=== PATIENT | female | born 1980 | race Hispanic/Latino ===

== ENCOUNTER 2018-09-20 14:48 | Emergency (ER) | payer OTHER ==
[2018-09-20 15:51] LABS: Urine Blood NEGATIVE (NEG); Urine Glucose 2+ (NEG); Urine Protein NEGATIVE (NEG); Urine pH 5.5 (5.0-7.0)
[2018-09-20 16:00] LABS: Absolute Lymphocytes (CBC) 2.4 K/uL (0.7-4.9); Absolute Monocytes 0.8 K/uL (0.1-1.3); Absolute Neutrophil 5.4 K/uL (1.8-8.0); Basophils % 0.8 % (0-1.3); Eosinophils % 1.2 % (0-4.4); Hematocrit 36.4 % (36.0-45.0); Lymphocytes % 27.1 % (15.3-44.8); MCH 27.5 pg (27.0-35.0); MCV 82.4 fL (80-100); MPV 10.7 fL (7.6-11.3); Monocytes % 8.8 % (3.3-12.3); RBC Red Blood Cell Count 4.41 M/uL (3.86-4.86)
[2018-09-20 16:11] LABS: Urine Bacteria 20-50 /HPF (<20); Urine Culture Reflex Order REFLEXED; Urine Mucus 1+ /HPF (NONE SEEN); Urine RBC <5 /HPF (NONE SEEN)
[2018-09-20 16:28] LABS: ALT/SGPT 21 U/L (12-78); AST/SGOT 21 U/L (15-37); Albumin 3.2 g/dL (3.4-5.0); Alkaline Phosphatase 94 U/L (45-117); BUN Blood Urea Nitrogen 14 mg/dL (7-18); Bicarbonate 26 mmol/L (21-32); Bilirubin Direct < 0.1 mg/dL (0-0.2); Bilirubin Total 0.3 mg/dL (0.2-1.0); Glucose Level 200 mg/dL (74-106); Lipase 182 U/L (73-393); Protein, Total 7.8 g/dL (6.4-8.2); Sodium Level 137 mmol/L (136-145)
[2018-09-20] MEDS ORDERED: MORPHINE 4 MG/ML SYR ONE (17:36)
[2018-09-20] MEDS ORDERED: ONDANSETRON 4 MG/2 ML VIAL ONE (17:36)
[2018-09-20] MEDS ORDERED: NA CHLORIDE 0.9% 1,000 ML ONE (17:36)
--- NOTE | 2018-09-20 18:31 | RAD REPORT ---
EXAM DESCRIPTION: CT - Abdomen Pelvis W Contrast - 09/20/2018 6:17 pm CLINICAL HISTORY: Abdominal pain, right-sided back and flank pain COMPARISON: CT imaging December 2014 TECHNIQUE: Biphasic, helical CT imaging of the abdomen and pelvis was performed following 100 ml non -ionic IV contrast. Oral contrast was given. All CT scans are performed using dose optimization technique as appropriate and may include automated exposure control or mA/KV adjustment according to patient size. FINDINGS: No suspicious findings in the lung bases. The liver, spleen, and pancreas show no suspicious findings. Cholecystectomy clips are present. Mild biliary tree dilatation is not outside of normal range. Dilatation can be seen as a normal reservoir affect and occurs after cholecystectomy. Duct stones can be occult. Symmetric renal function is seen with no hydronephrosis or suspicious renal mass. No pyelonephritis o r acute renal parenchymal process. A 7 centimeter cyst lower pole left kidney has enlarged minimally since 2015. No suspicious characteristics. Right ureter may be fractionally larger than in 2015. No o bstructing or nonobstructing calculi. Uterus is deviated to the right. There is possibly some extrins ic compression of the ureter. In the posterior fundus there is a 5.7 centimeter mass that is most lik fadumo a fibroid. This is slightly enlarged from 2015. Right ovary is in the posterior right pelvis with no suspicious finding. A few small right ovarian cysts are present. Minimal free fluid in the cul-de -sac is within physiologic limits. Left ovary is in the anterior upper left pelvis. A 5.0 centimeter low-density mass is present in the ovary. No dilated bowel loops or bowel wall thickening. Moderate stool volume in the colon. No appendicitis. No acute GI process identifiable. No free air or pneumatosis. No focal inflammatory stranding. No m ass or bulky lymphadenopathy otherwise noted. No hernia defects seen. scar noted. The urina ry bladder is without significant finding. No adrenal abnormality. No suspicious bony findings. IMPRESSION: A 5 centimeter left ovarian cyst is identified in the anterior lower left pelvis. This m ay not be of any emergent significance due to provided history of right flank pain. This does need napoles bsequent follow-up in 2- 3 months to assure involution. No hydronephrosis or asymmetric renal function. Slight fullness of the right renal pelvis is present possibly from extrinsic compression. No obstructing or nonobstructing calculi. Biliary tree dilatation in a post cholecystectomy patient. Duct stones can be occult. Biliary tree ca n dilate as a normal variant after cholecystectomy. Correlation is needed with any biliary obstructiv e clinical or laboratory findings. Large uterine fibroid enlarged left renal cyst both slightly enlarged from 2015.
--- NOTE | 2018-09-20 18:54 | ER ---
Nurse's Notes [facility] Name: Glenna Finney Age: 37 yrs Sex: Female : 1980 Arrival Date: 09/20/2018 Time: 14:52 Bed 26 Private MD: None, None Diagnosis: Generalized abdominal pain Presentation: 09/20 14:54 Presenting complaint: Patient states: right back/flank/ RUQ pain started about 2 weeks sv ago but has worsened the last 3 days. Transition of care: patient was not received from another setting of care. Onset of symptoms was September 06, 2018. Care prior to arrival: None. 14:54 Method Of Arrival: Ambulatory sv 14:54 Acuity: GIGI 3 sv 15:30 Risk Assessment: Do you want to hurt yourself or someone else? Patient reports no mg2 desire to harm self or others. Initial Sepsis Screen: Does the patient meet any 2 criteria? No. Patient's initial sepsis screen is negative. Does the patient have a suspected source of infection? No. Patient's initial sepsis screen is negative. Triage Assessment: 14:57 General: Appears in no apparent distress. uncomfortable, Behavior is calm, cooperative, sv appropriate for age. Pain: Complains of pain in right low back, posterior aspect of right lateral abdomen and anterior aspect of right lateral abdomen Pain currently is 7 out of 10 on a pain scale. EENT: No signs and/or symptoms were reported regarding the EENT system. Neuro: Level of Consciousness is awake, alert, obeys commands, Oriented to person, place, time, situation, Moves all extremities. Full function. Respiratory: Respiratory effort is even, unlabored, Respiratory pattern is regular, symmetrical. Derm: Skin is pink, warm \T\ dry. Historical: - Allergies: 14:56 No Known Allergies; sv - PMHx: 14:56 Hypertension; sv - PSHx: 14:56 Cholecystectomy; ; sv - Immunization history:: Flu vaccine is not up to date. - Social history:: Smoking status: Patient/guardian denies using tobacco. - Ebola Screening: : No symptoms or risks identified at this time. Screenin:28 Abuse screen: Denies threats or abuse. Denies injuries from another. Nutritional mg2 screening: No deficits noted. Tuberculosis screening: No symptoms or risk factors identified. Fall Risk None identified. Assessment: 15:28 General: Appears in no apparent distress. comfortable, Behavior is calm, cooperative. mg2 Pain: Complains of pain in back Pain does not radiate. Quality of pain is described as aching. Neuro: Level of Consciousness is awake, alert, obeys commands, Oriented to person, place, time, situation. Cardiovascular: Capillary refill < 3 seconds Patient's skin is warm and dry. Respiratory: Airway is patent Respiratory effort is even, unlabored, Respiratory pattern is regular, symmetrical. GI: Abdomen is round non-distended. : Reports pain flank(s), since 2 weeks ago. EENT: No deficits noted. Derm: Skin is intact, is healthy with good turgor, Skin is pink, warm \T\ dry. normal. Musculoskeletal: No signs and/or symptoms reported regarding the musculoskeletal system. 16:34 Reassessment: Patient appears in no apparent distress at this time. Patient and/or rv family updated on plan of care and expected duration. Pain level reassessed. Patient is alert, oriented x 3, equal unlabored respirations, skin warm/dry/pink. 17:36 Reassessment: Patient appears in no apparent distress at this time. Patient and/or mg2 family updated on plan of care and expected duration. Pain level reassessed. Patient is alert, oriented x 3, equal unlabored respirations, skin warm/dry/pink. Vital Signs: 14:56 BP 149 / 86; Pulse 90; Resp 20; Temp 97; Pulse Ox 100% ; Weight 95.71 kg; Height 5 ft. sv 8 in. (172.72 cm); Pain 7/10; 16:34 BP 158 / 89; Pulse 88; Pulse Ox 98% on R/A; rv 18:16 BP 166 / 89; Pulse 88; Resp 18; Pulse Ox 100% on R/A; Pain 2/10; mg2 19:05 BP 152 / 84; Pulse 94; Pulse Ox 100% on R/A; rv 14:56 Body Mass Index 32.08 (95.71 kg, 172.72 cm) sv ED Course: 14:52 Patient arrived in ED. mr 14:52 None, None is Private Physician. mr 14:56 Triage completed. sv 14:57 Arm band placed on. sv 15:27 Da Berry, TAMARA is Primary Nurse. mg2 15:28 Vandana Gutierrez FNP-C [facility]. kb 15:28 Mateus Hidalgo MD is Attending Physician. kb 15:28 No provider procedures requiring assistance completed. mg2 15:30 Patient has correct armband on for positive identification. Pulse ox on. NIBP on. mg2 16:19 Inserted saline lock: 20 gauge in right antecubital area, using aseptic technique. mg2 Blood collected. 18:[address] via wheelchair. mw3 18:17 CT Abd/Pelvis - W/Contrast In Process Unspecified. EDMS 18:18 CT completed. Patient tolerated procedure well. Patient moved back from [place]. mw3 19:05 IV discontinued, bleeding controlled, No redness/swelling at site. Pressure dressing rv applied. Administered Medications: 17:32 Drug: NS 0.9% 1000 ml Route: IV; Rate: 1000 ml; Site: left antecubital; mg2 19:04 Follow up: IV Status: Completed infusion rv 17:33 Drug: morphine 4 mg Route: IVP; Site: right antecubital; mg2 19:04 Follow up: Response: No adverse reaction rv 17:33 Drug: Zofran 4 mg Route: IVP; Site: right antecubital; mg2 19:04 Follow up: Response: No adverse reaction rv Outcome: 18:53 Discharge ordered by MD. kb 19:05 Discharged to home ambulatory. rv 19:05 Condition: good 19:05 Discharge instructions given to patient, Instructed on discharge instructions, follow up and referral plans. medication usage, Demonstrated understanding of instructions, follow-up care, medications, Prescriptions given X 2. 19:06 Patient left the ED. rv Signatures: Dispatcher [employer] EDKY Vandana Gutierrez FNP-C FNP-Ckb Verde, Stephanie, RN TAMARA Consuelo Ortiz mr Da Berry RN RN mg2 Marie Yuen mw3 Jorge Byrne RN RN rv
--- NOTE | 2018-09-20 18:54 | EDPHYS ---
Physician Documentation [facility] Name: Glenna Finney Age: 37 yrs Sex: Female : 1980 Arrival Date: 09/20/2018 Time: 14:52 Bed 26 Private MD: None, None ED Physician Mateus Hidalgo HPI: 09/20 18:59 This 37 yrs old Female presents to ER via Ambulatory with complaints of Flank kb Pain. 18:59 The patient complains of pain in the right flank. The pain radiates to the abdomen. kb Onset: The symptoms/episode began/occurred 2 week(s) ago, and became persistent 3 days ago. Modifying factors: The symptoms are alleviated by nothing. the symptoms are aggravated by nothing. Associated signs and symptoms: The patient has no apparent associated signs or symptoms. Severity of pain: At its worst the pain was mild moderate in the emergency department the pain is unchanged. The patient has not experienced similar symptoms in the past. The patient has not recently seen a physician. Historical: - Allergies: 14:56 No Known Allergies; sv - PMHx: 14:56 Hypertension; sv - PSHx: 14:56 Cholecystectomy; ; sv - Immunization history:: Flu vaccine is not up to date. - Social history:: Smoking status: Patient/guardian denies using tobacco. - Ebola Screening: : No symptoms or risks identified at this time. ROS: 18:59 Constitutional: Negative for fever, chills, and weight loss, Cardiovascular: Negative kb for chest pain, palpitations, and edema, Respiratory: Negative for shortness of breath, cough, wheezing, and pleuritic chest pain, : Negative for injury, bleeding, discharge, and swelling, MS/Extremity: Negative for injury and deformity, Skin: Negative for injury, rash, and discoloration, Neuro: Negative for headache, weakness, numbness, tingling, and seizure. 18:59 Abdomen/GI: Positive for abdominal pain, Negative for nausea, vomiting, and diarrhea. 18:59 Back: Positive for flank pain, on the right, Negative for injury or acute deformity, decreased range of motion. Exam: 19:04 Constitutional: This is a well developed, well nourished patient who is awake, alert, kb and in no acute distress. Head/Face: Normocephalic, atraumatic. Chest/axilla: Normal chest wall appearance and motion. Nontender with no deformity. No lesions are appreciated. Cardiovascular: Regular rate and rhythm with a normal S1 and S2. No gallops, murmurs, or rubs. Normal PMI, no JVD. No pulse deficits. Respiratory: Lungs have equal breath sounds bilaterally, clear to auscultation and percussion. No rales, rhonchi or wheezes noted. No increased work of breathing, no retractions or nasal flaring. Skin: Warm, dry with normal turgor. Normal color with no rashes, no lesions, and no evidence of cellulitis. MS/ Extremity: Pulses equal, no cyanosis. Neurovascular intact. Full, normal range of motion. Neuro: Awake and alert, GCS 15, oriented to person, place, time, and situation. Cranial nerves II-XII grossly intact. Motor strength 5/5 in all extremities. Sensory grossly intact. Cerebellar exam normal. Normal gait. 19:04 Abdomen/GI: Inspection: abdomen appears normal, Bowel sounds: normal, in all quadrants, Palpation: soft, in all quadrants, mild abdominal tenderness, in the right upper quadrant. 19:04 Back: CVA tenderness, that is mild, is noted on the right. Vital Signs: 14:56 BP 149 / 86; Pulse 90; Resp 20; Temp 97; Pulse Ox 100% ; Weight 95.71 kg; Height 5 ft. sv 8 in. (172.72 cm); Pain 7/10; 16:34 BP 158 / 89; Pulse 88; Pulse Ox 98% on R/A; rv 18:16 BP 166 / 89; Pulse 88; Resp 18; Pulse Ox 100% on R/A; Pain 2/10; mg2 19:05 BP 152 / 84; Pulse 94; Pulse Ox 100% on R/A; rv 14:56 Body Mass Index 32.08 (95.71 kg, 172.72 cm) sv MDM: 15:28 Patient medically screened. kb 18:52 Data reviewed: vital signs, nurses notes. Data interpreted: Pulse oximetry: on room air kb is 100 %. Interpretation: normal. Counseling: I had a detailed discussion with the patient and/or guardian regarding: the historical points, exam findings, and any diagnostic results supporting the discharge/admit diagnosis, lab results, radiology results, the need for outpatient follow up, a family practitioner, to return to the emergency department if symptoms worsen or persist or if there are any questions or concerns that arise at home. 09/20 15:08 Order name: Urine Microscopic Only; Complete Time: 16:13 snw 09/20 15:37 Order name: Lipase; Complete Time: 16:29 kb 09/20 15:37 Order name: Basic Metabolic Panel; Complete Time: 16:29 kb 09/20 15:37 Order name: CBC with Diff; Complete Time: 16:13 kb 09/20 15:37 Order name: Hepatic Function; Complete Time: 16:29 kb 09/20 15:08 Order name: Urine Test (obtain specimen); Complete Time: 15:42 snw 09/20 15:08 Order name: Urine Dipstick-Ancillary (obtain specimen); Complete Time: 15:42 snw 09/20 15:43 Order name: Urine Dipstick--Ancillary (enter results); Complete Time: 15:59 eb 09/20 15:43 Order name: Urine --Ancillary (enter results); Complete Time: 15:59 eb 09/20 18:00 Order name: CT Abd/Pelvis - W/Contrast; Complete Time: 18:37 kb 09/20 15:37 Order name: Labs collected and sent; Complete Time: 15:48 kb 09/20 15:37 Order name: IV Saline Lock; Complete Time: 15:49 kb Administered Medications: 17:32 Drug: NS 0.9% 1000 ml Route: IV; Rate: 1000 ml; Site: left antecubital; mg2 19:04 Follow up: IV Status: Completed infusion rv 17:33 Drug: morphine 4 mg Route: IVP; Site: right antecubital; mg2 19:04 Follow up: Response: No adverse reaction rv 17:33 Drug: Zofran 4 mg Route: IVP; Site: right antecubital; mg2 19:04 Follow up: Response: No adverse reaction rv Disposition: 09/21 07:12 Co-signature as Attending Physician, Mateus Hidalgo MD. rn Disposition: 09/20/18 18:53 Discharged to Home. Impression: Generalized abdominal pain. - Condition is Stable. - Discharge Instructions: Abdominal Pain, Adult, [id number]. - Prescriptions for Zofran 4 mg Oral Tablet - take 1 tablet by ORAL route every 6 hours As needed; 20 tablet. Diclofenac Sodium 75 mg Oral Tablet Sustained Release - take 1 tablet by ORAL route 2 times per day; 30 tablet. - Medication Reconciliation Form, Thank You Letter, Antibiotic Education, Prescription Opioid Use form. - Follow up: Emergency Department; When: As needed; Reason: Worsening of condition. Follow up: Private Physician; When: 2 - 3 days; Reason: Recheck today's complaints, Continuance of care, Re-evaluation by your physician. Signatures: Dispatcher [employer] EDMS Vandana Gutierrez, COMMUNITY SERVICE AIDE-C COMMUNITY SERVICE AIDE-Ckb Michelle Price, RN RN Emilia Walker, MAURICE-C COMMUNITY SERVICE AIDE-Csnw Mateus Hidalgo MD MD rn Gardose, Michele, RN RN mg2 Vicente, Ronaldo, RN RN rv Corrections: (The following items were deleted from the chart) 09/20 19:06 18:53 09/20/2018 18:53 Discharged to Home. Impression: Generalized abdominal pain. rv Condition is Stable. Forms are Medication Reconciliation Form, Thank You Letter, Antibiotic Education, Prescription Opioid Use. Follow up: Emergency Department; When: As needed; Reason: Worsening of condition. Follow up: Private Physician; When: 2 - 3 days; Reason: Recheck today's complaints, Continuance of care, Re-evaluation by your physician. kb
[2018-09-20 19:13] VITALS: TEMP 97
[2018-09-20 19:16] VITALS: O2SAT 100
[2018-09-20 19:17] VITALS: BP 152/84
== END 2018-09-20 19:06 | disposition home or self-care (01) ==
LOC: ER 14:48
DX: R10.84 Generalized abdominal pain (principal); I10 Essential (primary) hypertension
CPT/HCPCS: 36415; 74177; 80048; 80076; 81003; 81015; 81025; 83690; 85025; 96361; 96374; 96375; 99284; J2405; J7030; Q9967

== ENCOUNTER 2018-10-30 20:12 | Emergency (ER) | payer OTHER ==
[2018-10-30 22:06] LABS: Urine Blood TRACE (NEG); Urine Glucose 3+ (NEG); Urine Protein NEGATIVE (NEG); Urine pH 5.5 (5.0-7.0)
[2018-10-30] MEDS ORDERED: CEFTRIAXONE/SWI 1gm 1 GM/10 ML SYR ONE (22:36)
[2018-10-30] MEDS ORDERED: NA CHLORIDE 0.9% 1,000 ML ONE (22:41)
[2018-10-30 22:46] LABS: ALT/SGPT 23 U/L (12-78); AST/SGOT 17 U/L (15-37); Albumin 3.2 g/dL (3.4-5.0); Alkaline Phosphatase 109 U/L (45-117); BUN Blood Urea Nitrogen 12 mg/dL (7-18); Bicarbonate 26 mmol/L (21-32); Bilirubin Direct < 0.1 mg/dL (0-0.2); Bilirubin Total 0.3 mg/dL (0.2-1.0); Glucose Level 316 mg/dL (74-106); Lipase 194 U/L (73-393); Potassium 3.8 mmol/L (3.5-5.1); Protein, Total 7.7 g/dL (6.4-8.2); Sodium Level 138 mmol/L (136-145)
[2018-10-30 22:52] LABS: Absolute Lymphocytes (CBC) 2.3 K/uL (0.7-4.9); Absolute Monocytes 0.6 K/uL (0.1-1.3); Absolute Neutrophil 3.4 K/uL (1.8-8.0); Eosinophils % 1.5 % (0-4.4); Hematocrit 38.9 % (36.0-45.0); Lymphocytes % 36.2 % (15.3-44.8); MCH 27.9 pg (27.0-35.0); MCV 82.1 fL (80-100); MPV 11.3 fL (7.6-11.3); Monocytes % 8.8 % (3.3-12.3); RBC Red Blood Cell Count 4.73 M/uL (3.86-4.86)
[2018-10-31] MEDS ORDERED: INSULIN -REGULAR HUMAN 50 UNIT/0.5 ML ML ONE (00:04)
--- NOTE | 2018-10-31 00:24 | ER ---
Nurse's Notes [facility] Name: Glenna Finney Age: 37 yrs Sex: Female : 1980 Arrival Date: 10/30/2018 Time: 20:13 Bed 16 Private MD: None, None Diagnosis: Dysuria;Leiomyoma of uterus, unspecified;Unspecified ovarian cysts-MASS;Congenital renal cyst, unspecified-LEFT, LARGE Presentation: 10/30 20:40 Presenting complaint: Patient states: that she is having right flank pain that radiates fc around to right upper abd. Burrell with urination and also having frequency. Started 4 days ago. Transition of care: patient was not received from another setting of care. Onset of symptoms was October 27, 2018. Risk Assessment: Do you want to hurt yourself or someone else? Patient reports no desire to harm self or others. Initial Sepsis Screen: Does the patient meet any 2 criteria? HR > 90 bpm. Yes Does the patient have a suspected source of infection? No. Patient's initial sepsis screen is negative. Care prior to arrival: None. 20:40 Method Of Arrival: Ambulatory fc 20:40 Acuity: GIGI 3 fc Triage Assessment: 20:42 General: Appears uncomfortable, Behavior is calm, cooperative, appropriate for age. fc Pain: Complains of pain in right lower back and flank Pain radiates to right upper quadrant Pain currently is 7 out of 10 on a pain scale. Quality of pain is described as aching, dull, throbbing, Pain began 4 days ago. EENT: No deficits noted. EENT:. Neuro: Level of Consciousness is awake, alert, obeys commands, Oriented to person, place, time, situation, Appropriate for age. Cardiovascular: No deficits noted. Respiratory: No deficits noted. GI: Abdomen is non-distended, Bowel sounds present X 4 quads. Abd is soft X 4 quads Abdomen is tender to palpation in right upper quadrant Patient currently denies constipation, diarrhea, nausea, vomiting. : Reports burning with urination, pain in right flank(s), upper quadrant(s) urinary frequency. Derm: Skin is pink, warm \T\ dry. Musculoskeletal: Circulation, motion, and sensation intact. Capillary refill < 3 seconds, Range of motion: intact in all extremities. J[employer] TE[employer]ER: 20:42 LMP 10/05/2018 fc Historical: - Allergies: 20:42 No Known Allergies; fc - Home Meds: 20:42 metformin 1,000 mg Oral tab 1 tab 2 times per day [Active]; fc - PMHx: 20:42 Hypertension; Diabetes - NIDDM; fc - PSHx: 20:42 Cholecystectomy; Hernia repair; ; fc - Immunization history:: Last tetanus immunization: up to date Flu vaccine is not up to date. - Social history:: Smoking status: Patient/guardian denies using tobacco. - Ebola Screening: : Patient negative for fever greater than or equal to 101.5 degrees Fahrenheit, and additional compatible Ebola Virus Disease symptoms Patient denies exposure to infectious person Patient denies travel to an Ebola-affected area in the 21 days before illness onset. - Family history:: not pertinent. Screenin:21 Abuse screen: Denies threats or abuse. Denies injuries from another. Nutritional mg2 screening: No deficits noted. Tuberculosis screening: No symptoms or risk factors identified. Fall Risk None identified. Assessment: 21:19 General: Appears in no apparent distress. comfortable, Behavior is calm, cooperative. mg2 Pain: Complains of pain in right low back and low back area Pain does not radiate. Pain currently is 7 out of 10 on a pain scale. Quality of pain is described as aching, Pain began gradually, 4 days ago. Neuro: Level of Consciousness is awake, alert, obeys commands, Oriented to person, place, time, situation. Cardiovascular: Capillary refill < 3 seconds Patient's skin is warm and dry. Respiratory: Airway is patent Respiratory effort is even, unlabored, Respiratory pattern is regular, symmetrical. GI: : Reports pain in right flank(s), in lower back since . EENT: No signs and/or symptoms were reported regarding the EENT system. EENT: No deficits noted. Derm: Skin is intact, is healthy with good turgor, Skin is pink, warm \T\ dry. normal. Musculoskeletal: No signs and/or symptoms reported regarding the musculoskeletal system. 10/31 00:58 Reassessment: Patient appears in no apparent distress at this time. Patient and/or mg2 family updated on plan of care and expected duration. Pain level reassessed. Patient is alert, oriented x 3, equal unlabored respirations, skin warm/dry/pink. Vital Signs: 10/30 20:42 BP 145 / 105; Pulse 103; Resp 18; Temp 98.5(O); Pulse Ox 99% on R/A; Weight 97.07 kg fc (R); Height 5 ft. 8 in. (172.72 cm) (R); Pain 7/10; 21:24 BP 145 / 98; Pulse 98; Resp 18; Pulse Ox 100% ; Pain 7/10; mg2 10/31 00:48 BP 135 / 78; Pulse 89; Resp 18; Pulse Ox 100% ; Pain 0/10; mg2 12 20:42 Body Mass Index 32.54 (97.07 kg, 172.72 cm) fc ED Course: 10/30 20:13 Patient arrived in ED. mr 20:14 None, None is Private Physician. mr 20:41 Triage completed. fc 20:42 Arm band placed on Patient placed in waiting room. fc 21:04 Da Berry, TAMARA is Primary Nurse. mg2 21:11 Donnie Alexandra MD is Attending Physician. brigida 21:21 Patient has correct armband on for positive identification. Door closed. Warm blanket mg2 given. 21:21 No provider procedures requiring assistance completed. mg2 22:01 Radiology exam delayed due to test not completed at this time. nj 22:23 Inserted saline lock: 20 gauge in left antecubital area, using aseptic technique. Blood mg2 collected. 22:29 CT Stone Protocol In Process Unspecified. EDMS 22:31 CT completed. Patient tolerated procedure well. Patient moved to CT via stretcher. Patient moved back from [place]. 12 00:20 Yojana Vyas MD is Referral Physician. brigida 00:23 Matheus Duarte MD is Referral Physician. brigida 00:59 IV discontinued, intact, bleeding controlled, No redness/swelling at site. Pressure mg2 dressing applied. Administered Medications: 10/30 22:53 Drug: NS 0.9% 1000 ml Route: IV; Rate: 1 bolus; Site: left antecubital; mg2 10/31 00:59 Follow up: Response: No adverse reaction; IV Status: Completed infusion mg2 10/30 22:53 Drug: Rocephin - (cefTRIAXone) 1 grams Route: IVPB; Infused Over: 30 mins; Site: left mg2 antecubital; 10/31 00:59 Follow up: Response: No adverse reaction; IV Status: Completed infusion mg2 00:05 Drug: Insulin Regular Human 10 units {Co-Signature: [email or web address] (Emily Flor RN).} Route: mg2 Sub-Q; Site: right lower abdomen; 00:59 Follow up: Response: No adverse reaction; Marked relief of symptoms mg2 Point of Care Testing: Blood Glucose: 00:48 Blood Glucose: 246 mg/dL; mg2 Ranges: Outcome: 00:23 Discharge ordered by . brigida 01:00 Discharged to home ambulatory, with family. mg2 01:00 Condition: stable 01:00 Discharge instructions given to patient, family, Instructed on discharge instructions, follow up and referral plans. medication usage, Demonstrated understanding of instructions, follow-up care, medications, Prescriptions given X 2. 01:00 Patient left the ED. mg2 Signatures: Dispatcher [employer] EDDonnie Damon MD MD cha Rivera Consuelo mr Cruz, Mandy Garsia RN RN fc Jordan, Nathan nj Gardose, Michele, RN RN mg2 Emily Flor RN [email or web address]
--- NOTE | 2018-10-31 00:24 | EDPHYS ---
Physician Documentation [facility] Name: Glenna Finney Age: 37 yrs Sex: Female : 1980 Arrival Date: 10/30/2018 Time: 20:13 Bed 16 Private MD: None, None ED Physician Donnie Alexandra HPI: 10/30 21:58 This 37 yrs old Female presents to ER via Ambulatory with complaints of Back brigida Pain, Flank Pain. 21:58 The patient presents with pain that is acute. The symptoms are located in the right mid brigida back. Onset: The symptoms/episode began/occurred 2 day(s) ago. The pain does not radiate. Associated signs and symptoms: The patient has no apparent associated signs or symptoms. The problem was sustained from unknown cause. Modifying factors: The patient symptoms are alleviated by nothing, the patient symptoms are aggravated by nothing. Severity of symptoms: At their worst the symptoms were mild, moderate, in the emergency department the symptoms are unchanged. The patient has not experienced similar symptoms in the past. 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 - Social history:: Smoking status: Patient/guardian denies using tobacco. - Ebola Screening: : Patient negative for fever greater than or equal to 101.5 degrees Fahrenheit, and additional compatible Ebola Virus Disease symptoms Patient denies exposure to infectious person Patient denies travel to an Ebola-affected area in the 21 days before illness onset. - Family history:: not pertinent. ROS: 21:58 Constitutional: Negative for fever, chills, and weight loss, Eyes: Negative for injury, brigida pain, redness, and discharge, ENT: Negative for injury, pain, and discharge, Neck: Negative for injury, pain, and swelling, Cardiovascular: Negative for chest pain, palpitations, and edema, Respiratory: Negative for shortness of breath, cough, wheezing, and pleuritic chest pain, Abdomen/GI: Negative for abdominal pain, nausea, vomiting, diarrhea, and constipation, : Negative for injury, bleeding, discharge, and swelling, MS/Extremity: Negative for injury and deformity, Skin: Negative for injury, rash, and discoloration, Neuro: Negative for headache, weakness, numbness, tingling, and seizure. 21:58 Back: Positive for pain at rest, flank pain, on the right. Exam: 22:00 Constitutional: This is a well developed, well nourished patient who is awake, alert, brigida and in no acute distress. Head/Face: Normocephalic, atraumatic. Eyes: Pupils equal round and reactive to light, extra-ocular motions intact. Lids and lashes normal. Conjunctiva and sclera are non-icteric and not injected. Cornea within normal limits. Periorbital areas with no swelling, redness, or edema. ENT: Nares patent. No nasal discharge, no septal abnormalities noted. Tympanic membranes are normal and external auditory canals are clear. Oropharynx with no redness, swelling, or masses, exudates, or evidence of obstruction, uvula midline. Mucous membranes moist. Neck: Trachea midline, no thyromegaly or masses palpated, and no cervical lymphadenopathy. Supple, full range of motion without nuchal rigidity, or vertebral point tenderness. No Meningismus. Chest/axilla: Normal chest wall appearance and motion. Nontender with no deformity. No lesions are appreciated. Cardiovascular: Regular rate and rhythm with a normal S1 and S2. No gallops, murmurs, or rubs. Normal PMI, no JVD. No pulse deficits. Respiratory: Lungs have equal breath sounds bilaterally, clear to auscultation and percussion. No rales, rhonchi or wheezes noted. No increased work of breathing, no retractions or nasal flaring. Abdomen/GI: Soft, non-tender, with normal bowel sounds. No distension or tympany. No guarding or rebound. No evidence of tenderness throughout. Skin: Warm, dry with normal turgor. Normal color with no rashes, no lesions, and no evidence of cellulitis. MS/ Extremity: Pulses equal, no cyanosis. Neurovascular intact. Full, normal range of motion. Neuro: Awake and alert, GCS 15, oriented to person, place, time, and situation. Cranial nerves II-XII grossly intact. Motor strength 5/5 in all extremities. Sensory grossly intact. Cerebellar exam normal. Normal gait. Psych: Awake, alert, with orientation to person, place and time. Behavior, mood, and affect are within normal limits. 22:00 Back: pain, that is mild, ROM is normal, painless, normal spinal alignment noted, CVA tenderness, that is mild, that is moderate, is noted on the right, muscle spasm, is not present. Vital Signs: 20:42 BP 145 / 105; Pulse 103; Resp 18; Temp 98.5(O); Pulse Ox 99% on R/A; Weight 97.07 kg fc (R); Height 5 ft. 8 in. (172.72 cm) (R); Pain 7/10; 21:24 BP 145 / 98; Pulse 98; Resp 18; Pulse Ox 100% ; Pain 7/10; mg2 10/31 00:48 BP 135 / 78; Pulse 89; Resp 18; Pulse Ox 100% ; Pain 0/10; mg2 10/30 20:42 Body Mass Index 32.54 (97.07 kg, 172.72 cm) MDM: 10/30 21:11 Patient medically screened. [facility] 22:01 Data reviewed: vital signs, nurses notes, lab test result(s), radiologic studies, CT brigida scan. 10/30 21:47 Order name: Urine Dipstick--Ancillary (enter results); Complete Time: 22:33 gm 10/30 21:47 Order name: Urine --Ancillary (enter results); Complete Time: 22:33 gm 10/30 21:58 Order name: Basic Metabolic Panel [facility] 10/30 21:58 Order name: CBC with Diff [facility] 10/30 21:58 Order name: Creatinine for Radiology; Complete Time: 23:40 [facility] 10/30 21:58 Order name: Hepatic Function; Complete Time: 23:40 [facility] 10/30 21:58 Order name: Lipase; Complete Time: 23:40 [facility] 10/30 21:58 Order name: Urine Culture [facility] 10/30 21:58 Order name: CT Stone Protocol [facility] 10/30 21:58 Order name: Basic Metabolic Panel; Complete Time: 23:40 [facility] 10/30 21:58 Order name: CBC with Automated Diff; Complete Time: 23:40 [facility] 10/30 21:58 Order name: IV Saline Lock; Complete Time: 22:54 [facility] 10/30 21:58 Order name: Labs collected and sent; Complete Time: 22:54 [facility] Administered Medications: 22:53 Drug: NS 0.9% 1000 ml Route: IV; Rate: 1 bolus; Site: left antecubital; mg2 10/31 00:59 Follow up: Response: No adverse reaction; IV Status: Completed infusion mg2 10/30 22:53 Drug: Rocephin - (cefTRIAXone) 1 grams Route: IVPB; Infused Over: 30 mins; Site: left mg2 antecubital; 10/31 00:59 Follow up: Response: No adverse reaction; IV Status: Completed infusion mg2 00:05 Drug: Insulin Regular Human 10 units {Co-Signature: [id number] (Emily Flor RN).} Route: mg2 Sub-Q; Site: right lower abdomen; 00:59 Follow up: Response: No adverse reaction; Marked relief of symptoms mg2 Point of Care Testing: Blood Glucose: 00:48 Blood Glucose: 246 mg/dL; mg2 Ranges: Critical Glucose Levels:Adult <50 mg/dl or >400 mg/dl <40 mg/dl or >180 mg/dl Disposition: 10/31/18 00:23 Discharged to Home. Impression: Dysuria, Leiomyoma of uterus, unspecified, Unspecified ovarian cysts - MASS, Congenital renal cyst, unspecified - LEFT, LARGE. - Condition is Stable. - Discharge Instructions: Type 2 Diabetes Mellitus, Diagnosis, Adult, Dysuria, Uterine Fibroids, Ovarian Cyst, Ovarian Cyst, [id number], Uterine Fibroids, Pygf-gl-Xazx, Type 2 Diabetes Mellitus, Diagnosis, Adult, Kyxs-jd-[id number], Type 2 Diabetes Mellitus, Self Care, Adult, Type 2 Diabetes Mellitus, Self Care, Adult, Khxb-[id number]. - Prescriptions for Tylenol- Codeine #3 300-30 mg Oral Tablet - take 2 tablets by ORAL route every 6 hours As needed; 20 tablet. Bactrim DS 800- 160 mg Oral Tablet - take 1 tablet by ORAL route every 12 hours for 7 days; 14 tablet. - Medication Reconciliation Form, Thank You Letter, Antibiotic Education, Prescription Opioid Use, Work release form form. - Follow up: Private Physician; When: 2 - 3 days; Reason: Recheck today's complaints, Continuance of care, Re-evaluation by your physician. Follow up: Yojana Vyas MD; When: 2 - 3 days; Reason: Recheck today's complaints, Continuance of care, Re-evaluation by your physician. Follow up: Matheus Duarte MD; When: 2 - 3 days; Reason: Recheck today's complaints, Re-evaluation by your physician. - Problem is new. - Symptoms have improved. Signatures: Dispatcher [employer] EDMO Donnie Alexandra MD MD cha Chretien, Felicia, RN RN Da Berry RN RN mg2 Emily Flor RN ls4 Corrections: (The following items were deleted from the chart) 01:00 00:23 10/31/2018 00:23 Discharged to Home. Impression: Dysuria; Leiomyoma of uterus, mg2 unspecified; Unspecified ovarian cysts - MASS; Congenital renal cyst, unspecified - LEFT, LARGE. Condition is Stable. Discharge Instructions: Dysuria, Type 2 Diabetes Mellitus, Diagnosis, Adult, Type 2 Diabetes Mellitus, Diagnosis, Adult, Nmkl-[id number], Type 2 Diabetes Mellitus, Self Care, Adult, Type 2 Diabetes Mellitus, Self Care, Adult, Apxk-by-Xsea. Prescriptions for Tylenol-Codeine #3 300-30 mg Oral Tablet - take 2 tablets by ORAL route every 6 hours As needed; 20 tablet, Bactrim DS 800-160 mg Oral Tablet - take 1 tablet by ORAL route every 12 hours for 7 days; 14 tablet. and Forms are Medication Reconciliation Form, Thank You Letter, Antibiotic Education, Prescription Opioid Use. Follow up: Private Physician; When: 2 - 3 days; Reason: Recheck today's complaints, Continuance of care, Re-evaluation by your physician. Follow up: Yojana Vyas; When: 2 - 3 days; Reason: Recheck today's complaints, Continuance of care, Re-evaluation by your physician. Follow up: Matheus Duarte; When: 2 - 3 days; Reason: Recheck today's complaints, Re-evaluation by your physician. Problem is new. Symptoms have improved. brigida
[2018-10-31 01:38] VITALS: TEMP 98.5
[2018-10-31 01:39] VITALS: O2SAT 100
[2018-10-31 01:41] VITALS: BP 135/78
--- NOTE | 2018-10-31 07:58 | RAD REPORT ---
EXAM DESCRIPTION: CT - Stone Protocol - 10/31/2018 2:17 am CLINICAL HISTORY: Abdominal pain. Right flank pain COMPARISON: September 2018 TECHNIQUE: Computed axial tomography of the abdomen pelvis was obtained without oral or IV contrast. Lack of IV and oral contrast limits evaluation of solid organs, bowel, and vessels. Coronal reformat sukhjinder images were obtained and reviewed. A preliminary report generated by [employer] and revi ewed prior to dictation All CT scans are performed using dose optimization technique as appropriate and may include automated exposure control or mA/KV adjustment according to patient size. FINDINGS: A renal calculus is not seen. An ureteral calculus is not noted. A bladder calculus is not present. 6.4 centimeter left renal cyst The liver, spleen, pancreas and adrenals appear grossly normal There is no evidence of diverticulitis. The appendix appears normal A 5 centimeter cystic mass left adnexa unchanged. Fibroid uterus Gallbladder is been removed IMPRESSION: Negative for a genitourinary calculus A 5 centimeter cystic mass left adnexal unchanged may represent a benign ovarian cyst. As a cystic ov brooke neoplasm can also have this appearance it is recommended patient follow up ultrasound in 6 week s to assess stability/resolution
== END 2018-10-31 01:00 | disposition home or self-care (01) ==
LOC: ER 20:12
DX: D25.9 Leiomyoma of uterus, unspecified (principal); N83.209 Unspecified ovarian cyst, unspecified side; Q61.00 Congenital renal cyst, unspecified; I10 Essential (primary) hypertension; E11.9 Type 2 diabetes mellitus without complications
CPT/HCPCS: 36415; 74176; 76377; 80048; 80076; 81003; 81025; 83690; 85025; 87086; 87088; 96365; 96366; 96372; 99284; J0696; J7030

== ENCOUNTER → 2019-05-30 | Day surgery (SDC) | payer OTHER, SELFPAY ==
[2019-05-28 15:32] LABS: Absolute Lymphocytes (CBC) 2.2 K/uL (0.7-4.9); Basophils % 0.5 % (0-1.3); Eosinophils % 1.2 % (0-4.4); Hematocrit 37.2 % (36.0-45.0); Lymphocytes % 26.8 % (15.3-44.8); MPV 11.5 fL (7.6-11.3); Monocytes % 7.8 % (3.3-12.3); RBC Red Blood Cell Count 4.55 M/uL (3.86-4.86)
[2019-05-28 15:52] LABS: Urine Appearance CLEAR; Urine Bilirubin NEGATIVE (NEG); Urine Blood NEGATIVE (NEG); Urine Color YELLOW; Urine Glucose 3+ (NEG); Urine Protein NEGATIVE (NEG); Urine Specific Gravity >=1.030 (1.005-1.030)
[2019-05-28 15:59] LABS: Urine Microscopic Reflex NO UMIC
[~2019-05-30] MED LIST: CODEINE 30MG/APAP 300MG TAB ONE; EPHEDRINE SULF 50 MG/ML VIAL ONE; FENTANYL CITR 100 MCG/2 ML ONE; GLYCOPYRROLATE 0.2 MG/ML SYR ONE; HYDROCODONE/APAP 5/325 MG TAB ONE; HYDROCODONE/APAP 5/325 MG TAB PO ONE; KETOROLAC 30 MG/ML INJ ONE; LIDOCAINE 1% MPF 5 ML VIAL ONE; MIDAZOLAM HCL 2 MG/2 ML INJ ONE; NA CHLORIDE 0.9% 1,000 ML ONE; NEOSTIGMINE 1 MG/ML -10 ML VIAL ONE; NS 0.9% VIAL 10 ML ONE; ONDANSETRON 4 MG/2 ML VIAL ONE; PROPOFOL 200 MG/20 ML VIAL IV ONE; Ringers Lactate 1,000 ML IV ONE; SCOPOLAMINE HYDROBROMIDE PATCH TD ONE; VECURONIUM 10 MG/VIAL IV ONE
[2019-05-30] MEDS: CEFAZOLIN/SWI 2gm 2 GM/20 ML SYR ONE ×2 (11:47→13:35)
[2019-05-30 15:58] VITALS: O2SAT 100
[2019-05-30 17:01] VITALS: BP 138/69; TEMP 98
--- NOTE | 2019-05-31 02:07 | OP ---
Date of Procedure: 05/30/2019 Surgeon: Yojana Vyas MD Supplier Quality Specialist: Yamilka Lundberg. Preoperative Diagnoses: Severe heavy menstrual bleeding (AUB-L/O), leiomyomata, complex left ovarian cyst, and need for permanent irreversible sterilization. Postoperative Diagnoses: Severe heavy menstrual bleeding (AUB-L/O), leiomyomata, complex left ovaria n cyst, and need for permanent irreversible sterilization, and omental adhesions from her prior 4 rafal arean sections to the anterior abdominal wall that were not taken down. Procedures Performed: Diagnostic hysteroscopy, endometrial ablation with HTA, diagnostic laparoscopy , pelvic washings, bilateral salpingectomy and left oophorectomy, extension of the umbilical incision to 4 cm in order for the ovarian cyst to be removed intact. Anesthesia: General endotracheal. Ebl: Minimal. Specimens: Bilateral tubes, left ovary, pelvic washings. Complications: No complications. Drains: No drains. Patient's Condition: Stable. Findings: There were anterior abdominal wall adhesions of the omentum from the umbilicus all the way down to the suprapubic area just above the level of the suprapubic incision. The left lower quadran t pelvic area was all completely free of adhesions. So, I was able to perform the procedure without taking down all these adhesions. The adhesions were well visualized on the lateral port, making sure that there was no bowel attached where I had entered with my umbilical trocar and, once this was con firmed that it was all omentum, then they were left alone at this time because there would be repeate d adhesions if I would take them down, the patient is asymptomatic from it, and I was able to perform our procedure without any problems or obstruction of the view. The uterus was definitely enlarged with a large posterior myoma and other myomata. The right ovary w as completely normal. The left ovary had the ovarian mass. Description Of Procedure: After informed consent was verified, patient was taken back to OR. 2 g of Ancef were given. She is an uncontrolled diabetic with an A1c of 10.6, but she is being treated, ta kes medication actively, counseled on her diet and risks. She had to be operated on this. Her bleed ing was getting worse and her hemoglobin was only 8.6 g and she was symptomatic from her bleeding, so instead of a hysterectomy that was planned for her fibroids and bleeding, along with the cyst and bi lateral salpingectomy with left oophorectomy, plan to just remove the left ovary but just asked to re move the tubes for sterilization and the ablation for the bleeding. The patient was re-consented in the preop, taken back to the OR, placed in a supine fashion on the op erating table. After general anesthesia was given, she was placed in a dorsal lithotomy position lianet mcintosh. Pelvic exam was performed. Uterus was found to be enlarged, about 10 weeks size. The left adnexa with probably a 5-6 cm mass possible. Abdomen, vulva, vagina, and perineum were prepped and draped in a sterile fashion. SCDs were started and time-out was done. Arms were tucked by the side and positioning was correct. Speculum was placed to expose the cervix. Anterior lip was grasped with 2 Allis clamps. A diagnosti c hysteroscope was introduced into the uterine cavity to see if she was a good NovaSure candidate. H owever, there was slight distortion in the cavity, most likely from her fibroids as well after her ce sarean scars. So, I deemed that a hydrothermal ablation probably would be more appropriate as the No vaSure device may not fit the contour of the cavity appropriately giving a global endometrial ablatio n. Once the HTA sheath was primed, it was inserted into the uterine cavity. Proceeded with the cavity i ntegrity test. Once this was passed after her positioning, then the entire cycle of 10 minutes of ab lation was done with one interruption where the fluid level was detected, but this was probably from tissue obstruction through the outflow tubing and, once this was relieved by squeezing on the outflow tubing, the ablation restarted and finished the next 30 seconds which completed the 10 minute cycle. Then, the 1.5 minute cooling cycle was conducted without any interruptions and, once the ablation w as done, there was a good global endometrial ablation effect. Pictures were taken. The cavity was r insed out. Once the scope was removed, the diagnostic VCare was placed. The 2 Ray-Tecs placed in th e posterior fornix were removed. Once this was fixed in place, Gonzales was placed and attached to a dr ainakyle bag and left on the floor. The patient was placed in a supine position. 1 cm infraumbilical incision was made with a scalpel us ing the open laparoscopy technique. Fascia was incised and tagged with 0 Vicryl sutures. Peritoneum was picked up and incised sharply with the help of Metzenbaum scissors and, then once the peritoneal cavity was entered, I could feel the adhesions around of the omentum. However, there was access in the peritoneal cavity. S retractors placed. Gino introduced. Site of entry was checked with a 10 mm 30 degree lens. No evidence of any trauma to the surrounding structures. However, this was thro ugh some adhesions and most likely omental. After inspection of the pelvic cavity, there was evidenc e of scar tissue at the level of the scar but nothing to the anterior abdominal wall. Left ovary enlarged with the mass. Both tubes visualized. There was good access in the left lower quadra nt, so I did not deem that the adhesions need to be taken down in order for me to perform the procedu re. 5 mm ports were placed x2 in suprapubic and left lower quadrant areas under direct vision. Once the 5 mm scope was introduced through the left lower quadrant and the adhesions visualized, they wer e confirmed to be only omental without any bowel adhesions, so they were left alone without any hetal rn for trauma at the level of the umbilicus with the initial incision and trocar were placed. EnSeal was taken and the left tube was first taken down. Then the left ovary was taken down. The ur eter was visualized and was inferior and posterior and medial to the ovary. The IP ligament was take n down the mesosalpinx. The utero-ovarian ligament was all taken down, and the entire left ovary and tube were detached and left in the anterior cul-de-sac. Then, the right tube was taken down all derek ng the mesosalpinx down to the level of the fimbriated end. After both was , the 5 mm scope was used for the left and a 10 mm bag was placed through the umbilical incision. All the specimens placed in here, bag closed. Thorough irrigation and suction were performed. Excellent hemostasis. Pictures were taken. The trocars were removed. Then, the umbilical incision was slightly widened wi th the help of a Mónica and I attempted to see if the laparoscopic needle could decompress the ovarian mass, but this did not happen. This did not appear to be cystic, so did not want to spill the octavio nts, so carefully the needle was removed. The bag was closed back and clamped with a Mónica, so there would be no leakage of contents. Then, the incision along the midline on the fascia was carefully o pened up with the help of the Bovie and curved Mayos. Then, the underlying omentum was gen tly and dissected away without bleeding. Then, the entire specimen with the bag were removed, shoe h orn depth. The fascia was closed with 0 PDS and the skin incisions closed with 4-0 Vicryl in an inte rrupted fashion. VCare and Gonzales were removed. Instrument, needle, and sponge counts were done and were correct at the end of the case. The patient tolerated the procedure well. She will follow up w reny reid in 1 week. GERMAINE/JENAE Voice ID: [id number] Report ID: [id number]
== END ==
LOC: OR 09:19
PROVIDERS: ATTEND Obstetrics & Gynecology
PROC: 0UT74ZZ Resection of Bilateral Fallopian Tubes, Percutaneous Endoscopic Approach (ICD-10-PCS; 2019-05-30)
PROC: 0U5B8ZZ Destruction of Endometrium, Via Natural or Artificial Opening Endoscopic (ICD-10-PCS; 2019-05-30)
PROC: 0UT14ZZ Resection of Left Ovary, Percutaneous Endoscopic Approach (ICD-10-PCS; principal; 2019-05-30 11:30)
DX: D27.1 Benign neoplasm of left ovary (principal); N83.8 Other noninflammatory disorders of ovary, fallopian tube and broad ligament; K66.0 Peritoneal adhesions (postprocedural) (postinfection); N93.9 Abnormal uterine and vaginal bleeding, unspecified; N94.6 Dysmenorrhea, unspecified; D25.9 Leiomyoma of uterus, unspecified; E11.9 Type 2 diabetes mellitus without complications; Z79.84 Long term (current) use of oral hypoglycemic drugs
CPT/HCPCS: 36415; 81003; 81025; 82962; 83036; 85025; 86850; 86900; 86901; 88108; 88305; J0690; J2250; J2405; J2704; J2710; J3010; J7030

== ENCOUNTER 2020-04-10 15:19 | Inpatient (IN) | payer OTHER, SELFPAY ==
[2020-04-10] MEDS ORDERED: ACETAMINOPHEN 500 MG TAB ONE (18:25)
[2020-04-10] MEDS ORDERED: NA CHLORIDE 0.9% 1,000 ML ONE ×2 (18:26→21:24)
[2020-04-10 18:40] LABS: Absolute Lymphocytes (CBC) 2.8 K/uL (0.7-4.9); Basophils % 0.7 % (0-1.3); Hematocrit 41.6 % (36.0-45.0); MPV 11.5 fL (7.6-11.3); RBC Red Blood Cell Count 4.76 M/uL (3.86-4.86)
[2020-04-10 18:55] LABS: BUN Blood Urea Nitrogen 19 mg/dL (7-18); Bicarbonate 26 mmol/L (21-32); Glucose Level 260 mg/dL (74-106); Potassium 3.4 mmol/L (3.5-5.1); Sodium Level 136 mmol/L (136-145)
[2020-04-10 19:24] LABS: Urine Blood TRACE (NEG); Urine Glucose 2+ (NEG); Urine Protein NEGATIVE (NEG); Urine Specific Gravity 1.025 (1.005-1.030); Urine pH 5.5 (5.0-7.0)
--- NOTE | 2020-04-10 19:50 | RAD REPORT ---
EXAM DESCRIPTION: RAD - Foot Right 3 View - 04/10/2020 6:41 pm CLINICAL HISTORY: PAIN COMPARISON: No comparisons FINDINGS: No fracture, dislocation or periosteal reaction. On the AP projection there is questionabl e lucency along the medial margin of the fifth distal phalanx. Proximal and middle phalanges of the f ifth toe are intact. Soft tissue swelling is present in the fifth toe. No air or foreign body. Elsewhere no acute bone or joint finding. Patient has a large plantar spur. No air or foreign body in the soft tissues. IMPRESSION: No definitive acute bone findings seen. There is some questionable lucency along the med ial margin of the distal fifth phalanx. If there is concern for osteomyelitis, directed or dedicated films of the fifth toe could be obtained .
--- NOTE | 2020-04-10 20:49 | RAD REPORT ---
EXAM DESCRIPTION: RAD - Foot Right 2 View - 04/10/2020 8:35 pm CLINICAL HISTORY: 5th digit only needed COMPARISON: Foot Right 3 View dated 04/10/2020 FINDINGS: The two-view examination of the right fifth toe performed. No gross bone destructive process seen. However, of the medial margin of the fifth distal phalanx kaye s remain more lucent with suspicion for cortical disruption. In the setting of a soft tissue infection, early osteomyelitis of the fifth distal phalanx is suspect ed.
--- NOTE | 2020-04-10 21:17 | ER ---
Nurse's Notes [facility] Name: Glenna Finney Age: 39 yrs Sex: Female : 1980 Arrival Date: 04/10/2020 Time: 15:24 Bed 14 Private MD: Diagnosis: Cellulitis and acute lymphangitis of other parts of limb-right 5th toe and dorsum of foot;Osteomyelitis-left geat toe;Type 2 diabetes mellitus;Hypokalemia Presentation: 04/10 15:25 Chief complaint: Patient states: right 5th toe infection started today. Hx DM. Risk sv Assessment: Do you want to hurt yourself or someone else? Patient reports no desire to harm self or others. Onset of symptoms was April 10, 2020. 15:25 Method Of Arrival: Ambulatory sv 15:25 Acuity: GIGI 3 sv 15:26 Coronavirus screen: Proceed with normal triage. Patient denies a cough. Patient denies sv shortness of breath or difficulty breathing. Patient denies measured and/or subjective temperature greater than 100.4F prior to today's visit. Patient denies travel on a cruise ship or to a country the [facility] currently lists as an affected area. Patient denies contact with known and/or suspected case of COVID-19. Ebola Screen: No symptoms or risks identified at this time. 15:26 Initial Sepsis Screen: Does the patient meet any 2 criteria? HR > 90 bpm. No. Patient's sv initial sepsis screen is negative. Does the patient have a suspected source of infection? Yes: Skin breakdown/wound. Triage Assessment: 15:29 General: Appears in no apparent distress. comfortable, Behavior is calm, cooperative, sv appropriate for age. Pain: Complains of pain in right fifth toe. Neuro: Level of Consciousness is awake, alert, obeys commands, Oriented to person, place, time, situation, Gait is steady. Respiratory: Respiratory effort is even, unlabored. 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 - Social history:: Smoking status: . Screenin:07 Abuse screen: Denies threats or abuse. Denies injuries from another. Nutritional ca1 screening: No deficits noted. Tuberculosis screening: No symptoms or risk factors identified. Fall Risk IV access (20 points). Assessment: 18:02 General: Appears in no apparent distress. comfortable, Behavior is calm, cooperative, ca1 appropriate for age. Pain: Complains of pain in Right fifth toenail Pain. 18:07 Neuro: Level of Consciousness is awake, alert, obeys commands, Oriented to person, ca1 place, time, situation, Appropriate for age. Derm: Skin is intact, is healthy with good turgor, Skin is pink, warm \T\ dry. Derm: Wound noted right fifth toe. Musculoskeletal: Circulation, motion, and sensation intact. Capillary refill < 3 seconds. 18:47 Reassessment: Patient appears in no apparent distress at this time. Patient and/or ca1 family updated on plan of care and expected duration. Pain level reassessed. Patient is alert, oriented x 3, equal unlabored respirations, skin warm/dry/pink. 19:15 Reassessment: Patient appears in no apparent distress at this time. Patient and/or family updated on plan of care and expected duration. Pain level reassessed. Patient is alert, oriented x 3, equal unlabored respirations, skin warm/dry/pink. 20:30 Reassessment: Patient appears in no apparent distress at this time. No changes from previously documented assessment. Patient and/or family updated on plan of care and expected duration. Pain level reassessed. Patient is alert, oriented x 3, equal unlabored respirations, skin warm/dry/pink. 21:30 Reassessment: Patient appears in no apparent distress at this time. No changes from previously documented assessment. Patient and/or family updated on plan of care and expected duration. Pain level reassessed. Patient is alert, oriented x 3, equal unlabored respirations, skin warm/dry/pink. MD at bedside explaining POC need for admit. 23:00 Reassessment: Patient appears in no apparent distress at this time. No changes from previously documented assessment. Patient and/or family updated on plan of care and expected duration. Pain level reassessed. Patient is alert, oriented x 3, equal unlabored respirations, skin warm/dry/pink. Vital Signs: 15:26 BP 143 / 79; Pulse 101; Resp 16; Temp 98.2; Pulse Ox 99% ; Weight 94.8 kg; Height 5 ft. sv 8 in. (172.72 cm); 18:10 BP 140 / 97; Pulse 87; Resp 16 S; Pulse Ox 99% on R/A; ca1 18:47 BP 142 / 81; Pulse 85; Resp 16 S; Pulse Ox 100% on R/A; ca1 19:30 BP 161 / 97; Pulse 89; Resp 18; Pulse Ox 100% on R/A; wh 20:30 BP 158 / 90; Pulse 82; Resp 18; Pulse Ox 100% on R/A; wh 21:45 BP 167 / 91; Pulse 83; Resp 18; Pulse Ox 100% on R/A; wh 23:07 BP 153 / 95; Pulse 85; Resp 18; Temp 97.8(O); Pulse Ox 99% on R/A; lp1 15:26 Body Mass Index 31.78 (94.80 kg, 172.72 cm) sv ED Course: 15:24 Patient arrived in ED. mr 15:26 Triage completed. sv 15:26 Arm band placed on. sv 17:49 Renetta Erickson, RN is Primary Nurse. ca1 17:55 Antonino Larsen MD is Attending Physician. [facility] 18:07 Patient has correct armband on for positive identification. Bed in low position. Call ca1 light in reach. Side rails up X 1. Pulse ox on. NIBP on. Warm blanket given. 18:07 No provider procedures requiring assistance completed. ca1 18:24 Initial lab(s) drawn, by me, sent to lab. Inserted saline lock: 20 gauge in right ca1 antecubital area, using aseptic technique. Blood collected. 18:41 Foot Right 3 View XRAY In Process Unspecified. EDMS 20:35 XRAY Foot RIGHT 2 View In Process Unspecified. EDMS 21:08 Attending Physician role handed off by Antonino Larsen MD brigida 21:08 Donnie Alexandra MD is Attending Physician. brigida 21:14 Alex Mckay MD is Hospitalizing Provider. brigida 21:36 by me, sent to lab. EKG done, by ED staff, reviewed by Donnie Alexandra MD. jp3 21:36 Sedimentation Rate, Westergren Sent. jp3 22:09 Wound care: to ulcer located on Right fifth toenail was cleaned with soap and water, jp3 dressed with Kerlix, 1% silver sulfadiazine Cream, Patient tolerated well. 23:08 Patient admitted, IV remains in place. lp1 Administered Medications: 18:24 Drug: NS 0.9% 1000 ml Route: IV; Rate: 1000 ml; Site: right antecubital; ca1 20:35 Follow up: Response: No adverse reaction; IV Status: Completed infusion 18:25 Drug: Tylenol 1000 mg Route: PO; ca1 20:35 Follow up: Response: No adverse reaction; Pain is decreased 21:41 Drug: NS 0.9% 1000 ml Route: IV; Rate: 1 bolus; Site: right antecubital; 23:19 Follow up: Response: No adverse reaction; IV Status: Completed infusion 21:43 Drug: Zosyn 3.375 grams Route: IVPB; Infused Over: 60 mins; Site: right antecubital; 23:19 Follow up: Response: No adverse reaction; IV Status: Completed infusion 21:45 Drug: morphine 2 mg {Note: RASS 0.} Route: IVP; Site: right antecubital; 22:05 Follow up: Response: No adverse reaction; Pain is decreased; RASS: Alert and Calm (0) 21:47 Drug: Tetanus-Diphtheria Toxoid Adult 0.5 ml {Terrazzo Layer Helper: Corban Direct. Exp: 01/03/2022. Lot #: [id number]. } Route: IM; Site: right deltoid; 22:06 Follow up: Response: No adverse reaction 21:49 Drug: Silver SulfADIAZINE Cream 1 % 1 application Route: Topical; Site: affected area; 22:06 Follow up: Response: No adverse reaction 22:05 Drug: Potassium Effervescent Tablet 25 mEq Route: PO; 22:06 Follow up: Response: No adverse reaction Outcome: 21:17 Decision to Hospitalize by Provider. brigida 23:07 Condition: stable 1 23:07 Instructed on the need for admit. 23:11 Admitted to Med/surg room 216, with chart, Report called to TAMARA Solomon lp1 23:25 Patient left the ED. Signatures: Dispatcher [employer] EDMS Michelle Price RN RN sv Anderson, Corey, MD MD cha Rivera, Mary mr Pena, Laura, RN RN lp1 Amy Bernal Jacob jp3 Renetta Erickson RN RN ca1 Antonino Larsen MD MD 7 Corrections: (The following items were deleted from the chart) 15:29 15:26 Resp 16bpm; Pulse Ox 99%; Temp 98.2F; 94.8 kg; Height 5 ft. 8 in.; BMI: 31.7; sv sv 18:08 18:02 Pain: Complains of pain in Right fifth toenail Pain ca1 ca1
--- NOTE | 2020-04-10 21:18 | EDPHYS ---
Physician Documentation [facility] Name: Glenna Finney Age: 39 yrs Sex: Female : 1980 Arrival Date: 04/10/2020 Time: 15:24 Bed 14 Private MD: ENEIDA Physician Donnie Alexandra HPI: 04/10 18:08 This 39 yrs old Female presents to ER via Ambulatory with complaints of Wound mh7 Infection. 18:09 The patient presents with pain, that is acute, swelling, tenderness. The complaints mh7 affect the right fifth toe. Context: The problem was sustained at an unknown location, resulted from an unknown cause, Mechanism of Injury: Unknown the patient can fully bear weight, the patient is able to ambulate, without difficulty. Onset: The symptoms/episode began/occurred today. Modifying factors: the symptoms are aggravated by weight bearing, wearing shoes. Associated signs and symptoms: Pertinent negatives: calf tenderness, fever, nausea, numbness, rash, tingling, vomiting, warmth, weakness. Severity of symptoms: At their worst the symptoms were moderate, earlier today, in the emergency department the symptoms have improved, moderately. Patient states that she has pain to her right 5 th toe that started today. She denies any known injuries. She denies any fever, nausea, vomiting, or bleeding.. 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 - Social history:: Smoking status: . ROS: 18:09 Constitutional: Negative for fever, chills, and weight loss, Eyes: Negative for injury, mh7 pain, redness, and discharge, ENT: Negative for injury, pain, and discharge, Neck: Negative for injury, pain, and swelling, Cardiovascular: Negative for chest pain, palpitations, and edema, Respiratory: Negative for shortness of breath, cough, wheezing, and pleuritic chest pain, Abdomen/GI: Negative for abdominal pain, nausea, vomiting, diarrhea, and constipation, Back: Negative for injury and pain, : Negative for injury, bleeding, discharge, and swelling, Neuro: Negative for headache, weakness, numbness, tingling, and seizure, Psych: Negative for depression, anxiety, suicide ideation, homicidal ideation, and hallucinations, Allergy/Immunology: Negative for hives, rash, and allergies, Endocrine: Negative for neck swelling, polydipsia, polyuria, polyphagia, and marked weight changes, Hematologic/Lymphatic: Negative for swollen nodes, abnormal bleeding, and unusual bruising. Exam: 18:09 Constitutional: This is a well developed, well nourished patient who is awake, alert, mh7 and in no acute distress. Head/Face: Normocephalic, atraumatic. Eyes: Pupils equal round and reactive to light, extra-ocular motions intact. Lids and lashes normal. Conjunctiva and sclera are non-icteric and not injected. Cornea within normal limits. Periorbital areas with no swelling, redness, or edema. ENT: Nares patent. No nasal discharge, no septal abnormalities noted. Tympanic membranes are normal and external auditory canals are clear. Oropharynx with no redness, swelling, or masses, exudates, or evidence of obstruction, uvula midline. Mucous membranes moist. Neck: Trachea midline, no thyromegaly or masses palpated, and no cervical lymphadenopathy. Supple, full range of motion without nuchal rigidity, or vertebral point tenderness. No Meningismus. Chest/axilla: Normal chest wall appearance and motion. Nontender with no deformity. No lesions are appreciated. Cardiovascular: Regular rate and rhythm with a normal S1 and S2. No gallops, murmurs, or rubs. Normal PMI, no JVD. No pulse deficits. Respiratory: Lungs have equal breath sounds bilaterally, clear to auscultation and percussion. No rales, rhonchi or wheezes noted. No increased work of breathing, no retractions or nasal flaring. Abdomen/GI: Soft, non-tender, with normal bowel sounds. No distension or tympany. No guarding or rebound. No evidence of tenderness throughout. Back: No spinal tenderness. No costovertebral tenderness. Full range of motion. 18:09 Psych: Awake, alert, with orientation to person, place and time. Behavior, mood, and affect are within normal limits. 18:09 Musculoskeletal/extremity: Extremities: noted in the right fifth toe dorsum ulceration: pain, ROM: intact in all extremities, Circulation is intact in all extremities. Pulses: are normal with no appreciated deficits, Perfusion: the patient is normally perfused throughout, Perfusion: the extremity is normally perfused throughout, Sensation intact. Joints: All joints appear normal with full range of motion. Weight bearing: able to fully bear weight, without difficulty, Tendon exam: specific tendon testing normal through active and passive range of motion 18:09 Skin: lesion(s), located on the right fifth toe dorsum ulceration. 21:35 ECG was reviewed by the Attending Physician. [facility] Vital Signs: 15:26 BP 143 / 79; Pulse 101; Resp 16; Temp 98.2; Pulse Ox 99% ; Weight 94.8 kg; Height 5 ft. sv 8 in. (172.72 cm); 18:10 BP 140 / 97; Pulse 87; Resp 16 S; Pulse Ox 99% on R/A; ca1 18:47 BP 142 / 81; Pulse 85; Resp 16 S; Pulse Ox 100% on R/A; ca1 19:30 BP 161 / 97; Pulse 89; Resp 18; Pulse Ox 100% on R/A; wh 20:30 BP 158 / 90; Pulse 82; Resp 18; Pulse Ox 100% on R/A; wh 21:45 BP 167 / 91; Pulse 83; Resp 18; Pulse Ox 100% on R/A; wh 23:07 BP 153 / 95; Pulse 85; Resp 18; Temp 97.8(O); Pulse Ox 99% on R/A; lp1 15:26 Body Mass Index 31.78 (94.80 kg, 172.72 cm) sv MDM: 17:55 Patient medically screened. [facility] 20:16 Differential diagnosis: fracture, sprain, foreign body, arthritis, osteomyelitis. Data [facility] reviewed: vital signs, nurses notes, lab test result(s), radiologic studies, plain films. 21:13 Data interpreted: cardiac monitor technician: not applicable for this patient encounter. Pulse brigida oximetry: on room air is 100 %. Test interpretation: by ED physician or midlevel provider: ECG, plain radiologic studies. Counseling: I had a detailed discussion with the patient and/or guardian regarding: the historical points, exam findings, and any diagnostic results supporting the discharge/admit diagnosis, lab results, radiology results, the need for further work-up and treatment in the hospital. 04/10 18:08 Order name: CBC with Diff; Complete Time: 18:57 [facility] 04/10 18:08 Order name: BMP; Complete Time: 18:57 7 04/10 18:17 Order name: Glucose, Ancillary Testing EDUT 04/10 19:11 Order name: Urine Dipstick--Ancillary (enter results); Complete Time: 19:35 [facility] 04/10 19:11 Order name: Urine --Ancillary (enter results); Complete Time: 19:35 [facility] 04/10 19:49 Order name: Glucose, Ancillary Testing; Complete Time: 19:50 EDMS 04/10 21:13 Order name: Sed Rate brigida 04/10 21:13 Order name: Sedimentation Rate, Westergren; Complete Time: 08:00 [facility] 04/10 22:17 Order name: CBC with Automated Diff [facility] 04/10 22:17 Order name: CBC with Automated Diff [facility] 04/10 22:17 Order name: Protime (+INR) EDUT 04/10 22:17 Order name: Protime (+INR); Complete Time: 08:00 [facility] 04/10 22:17 Order name: PTT, Activated Partial Thromb EDMS 04/10 22:17 Order name: PTT, Activated Partial Thromb; Complete Time: 08:00 [facility] 04/10 18:08 Order name: Foot Right 3 View XRAY; Complete Time: 20:10 [facility] 04/10 20:22 Order name: XRAY Foot RIGHT 2 View; Complete Time: 21:08 [facility] 04/10 22:19 Order name: Comprehensive Metabolic Panel; Complete Time: 08:00 [facility] 04/10 22:19 Order name: Hemoglobin A1c [facility] 04/10 22:19 Order name: Lactate; Complete Time: 08:00 [facility] 04/10 22:19 Order name: Lipid Profile; Complete Time: 08:00 [facility] 04/10 22:19 Order name: Magnesium; Complete Time: 08:00 [facility] 04/10 22:20 Order name: Phosphorus; Complete Time: 08:00 [facility] 04/10 22:20 Order name: Procalcitonin; Complete Time: 08:00 [facility] 04/10 22:20 Order name: Creatine Phosphokinase; Complete Time: 08:00 [facility] 04/10 18:08 Order name: Saline Lock; Complete Time: 18:24 [facility] 04/10 18:27 Order name: Urine Dipstick-Ancillary (obtain specimen); Complete Time: 19:07 [facility] 04/10 18:27 Order name: Urine Test (obtain specimen); Complete Time: 19:07 [facility] 04/10 21:14 Order name: EKG; Complete Time: 21:14 [facility] 04/10 21:14 Order name: EKG - Nurse/Tech; Complete Time: 21:29 [facility] 04/10 21:22 Order name: Misc. Order: cover toe; Complete Time: 21:36 [facility] 04/10 22:16 Order name: CONS Pharmacy Consult [facility] 04/10 22:16 Order name: CONS Pharmacy Consult [facility] 04/10 22:16 Order name: CONS Physician Consult [facility] 04/10 22:17 Order name: Consistent Carb (ADA) 1800 [address] EDUT EC:35 Rate is 81 beats/min. Rhythm is regular. QRS [place] is Normal. ME interval is normal. QRS brigida interval is normal. QT interval is normal. No Q waves. T waves are Normal. No ST changes noted. Clinical impression: Normal ECG and No evidence of ischemia. Interpreted by me. Reviewed by me. Administered Medications: 18:24 Drug: NS 0.9% 1000 ml Route: IV; Rate: 1000 ml; Site: right antecubital; [facility] 20:35 Follow up: Response: No adverse reaction; IV Status: Completed infusion 18:25 Drug: Tylenol 1000 mg Route: PO; [facility] 20:35 Follow up: Response: No adverse reaction; Pain is decreased 21:41 Drug: NS 0.9% 1000 ml Route: IV; Rate: 1 bolus; Site: right antecubital; 23:19 Follow up: Response: No adverse reaction; IV Status: Completed infusion 21:43 Drug: Zosyn 3.375 grams Route: IVPB; Infused Over: 60 mins; Site: right antecubital; 23:19 Follow up: Response: No adverse reaction; IV Status: Completed infusion 21:45 Drug: morphine 2 mg {Note: RASS 0.} Route: IVP; Site: right antecubital; 22:05 Follow up: Response: No adverse reaction; Pain is decreased; RASS: Alert and Calm (0) 21:47 Drug: Tetanus-Diphtheria Toxoid Adult 0.5 ml {Lime Spreader: [employer]at. Exp: 01/03/2022. Lot #: [id number]. } Route: IM; Site: right deltoid; 22:06 Follow up: Response: No adverse reaction 21:49 Drug: Silver SulfADIAZINE Cream 1 % 1 application Route: Topical; Site: affected area; 22:06 Follow up: Response: No adverse reaction 22:05 Drug: Potassium Effervescent Tablet 25 mEq Route: PO; 22:06 Follow up: Response: No adverse reaction Disposition: 04/10/20 21:17 Hospitalization ordered by Alex Mckay for Inpatient Admission. Preliminary diagnosis are Cellulitis and acute lymphangitis of other parts of limb - right 5th toe and dorsum of foot, Osteomyelitis - left geat toe, Type 2 diabetes mellitus, Hypokalemia. - Bed requested for Telemetry/MedSurg (Inpatient). - Status is Inpatient Admission. - Condition is Stable. - Problem is new. - Symptoms have improved. Signatures: Dispatcher [employer] EDMichelle Loera RN RN Nadeen Bryant RN RN Donnie Alexandra MD MD cha Pena, Laura, RN RN [facility] Amy Bernal Daryn [place] [id number] Renetta Erickson RN RN [facility] Antonino Larsen MD MD 7 Corrections: (The following items were deleted from the chart) 21:47 21:17 Hospitalization Ordered by Alex Mckay MD for Inpatient Admission. Preliminary [facility] diagnosis is Cellulitis and acute lymphangitis of other parts of limb - right 5th toe and dorsum of foot; Osteomyelitis - left geat toe; Type 2 diabetes mellitus. Bed requested for Telemetry/MedSurg (Inpatient). Status is Inpatient Admission. Condition is Stable. Problem is new. Symptoms have improved. [facility] 22:27 21:47 04/10/2020 21:17 Hospitalization Ordered by Alex Mckay MD for Inpatient Admission. Preliminary diagnosis is Cellulitis and acute lymphangitis of other parts of limb - right 5th toe and dorsum of foot; Osteomyelitis - left geat toe; Type 2 diabetes mellitus; Hypokalemia. Bed requested for Telemetry/MedSurg (Inpatient). Status is Inpatient Admission. Condition is Stable. Problem is new. Symptoms have improved. [facility] 23:11 22:27 04/10/2020 21:17 Hospitalization Ordered by Alex Mckay MD for Inpatient ar5 Admission. Preliminary diagnosis is Cellulitis and acute lymphangitis of other parts of limb - right 5th toe and dorsum of foot; Osteomyelitis - left geat toe; Type 2 diabetes mellitus; Hypokalemia. Bed requested for Telemetry/MedSurg (Inpatient). Status is Inpatient Admission. Condition is Stable. Problem is new. Symptoms have improved. 23:25 23:11 04/10/2020 21:17 Hospitalization Ordered by Alex Mckay MD for Inpatient Admission. Preliminary diagnosis is Cellulitis and acute lymphangitis of other parts of limb - right 5th toe and dorsum of foot; Osteomyelitis - left geat toe; Type 2 diabetes mellitus; Hypokalemia. Bed requested for Telemetry/MedSurg (Inpatient). Status is Inpatient Admission. Condition is Stable. Problem is new. Symptoms have improved. ar5
[2020-04-10] MEDS ORDERED: MORPHINE 2 MG/ML SYR ONE (21:24)
[2020-04-10] MEDS ORDERED: TETANUS & DIPHTHERIA TOX,ADULT 0.5 ML VIAL ONE (21:24)
[2020-04-10] MEDS ORDERED: SILVER SULFADIAZINE 1% 25 GM TOP ONE (21:24)
[2020-04-10] MEDS ORDERED: PIPER/TAZO/NS 3.375gm 3.375 GM/100 ML BAG ONE (21:24)
[2020-04-10] MEDS ORDERED: ONDANSETRON 4 MG/2 ML VIAL IV PRN (22:08)
[2020-04-10] MEDS ORDERED: ACETAMINOPHEN 500 MG TAB PO PRN (22:08)
[2020-04-10] MEDS ORDERED: MORPHINE 4 MG/ML SYR IV PRN (22:08)
[2020-04-10] MEDS ORDERED: VANCOMYCIN/NS 1 gm 1 GM/250 ML BAG IVPB SCH (22:15)
[2020-04-10] MEDS ORDERED: D50W 25 GM/50 ML SYRINGE/VIAL IV PRN (22:16)
[2020-04-10] MEDS ORDERED: GLUCAGON 1 MG/VIAL IM PRN (22:16)
[2020-04-10] MEDS ORDERED: POTASSIUM 25 MEQ EFFERV TAB ONE (22:19)
[2020-04-11] MEDS: dexAMETHasone 10 MG/ML VIAL IV SCH ×2 (00:01→05:14)
[2020-04-11] MEDS: NA CHLORIDE 0.9% 1,000 ML IV SCH ×3 (00:24→23:45)
[2020-04-11] MEDS ORDERED: NA CHLORIDE 0.9% 250 ML ONE (00:25)
[2020-04-11] MEDS ORDERED: PIPER/TAZO/NS 3.375gm 6.750 GM/200 ML BAG ONE (00:25)
[2020-04-11] MEDS ORDERED: VANCOMYCIN 1 GM/VIAL ONE ×2 (00:25→01:34)
[2020-04-11] MEDS: PIPER/TAZO/NS 3.375gm 3.375 GM/100 ML BAG IVPB SCH ×5 (00:32→23:44)
[2020-04-11] MEDS ORDERED: VANCOMYCIN 1.25 GM in NA CHLORIDE 0.9% 250 ML IVPB ONE (01:00)
[2020-04-11] MEDS: COLCHICINE 0.6 MG TAB PO SCH ×2 (01:27→09:00)
[2020-04-11 02:04] VITALS: BMI 31.8
--- NOTE | 2020-04-11 03:00 | P.HP ---
Certification for Inpatient Patient admitted to: Inpatient With expected LOS: >2 Midnights Patient will require the following post-hospital care: None Practitioner: I am a practitioner with admitting privileges, knowledge of patient current condition, hospital course, and medical plan of care. Services: Services provided to patient in accordance with Admission requirements found in Title 42 Section 412.3 of the Code of Federal Regulations Patient History Date of Service: 04/10/20 Reason for admission: Diabetic foot ulcer/osteomyelitis versus gouty arthropathy History of Present Illness: PATIENT IS A 39-YEAR-OLD FEMALE CAME TO THE HOSPITAL WITH PAIN IN HER RIGHT FOOT. PATIENT HAS NOTICE SOME REDNESS ON THE 5TH TOE ON THE RIGHT FOOT A FEW DAYS AGO. WHEN SHE REMOVED HER SOCKS SO WAS NOT ULCER. NO SIGNIFICANT PAIN WELL. IT GOT WORSE OVERALL NEXT 24-48 HR AND BECAUSE OF HER HISTORY OF DIABETES SHE CAME INTO THE HOSPITAL FOR FURTHER EVALUATION. IN THE EMERGENCY ROOM SHE WAS STARTED ON IV ANTIBIOTICS. HER X-RAY DOES INDICATE THAT SHE MAY HAVE A DEGREE OF OSTEOMYELITIS. WE IS SURGERY CONSULTATION. PATIENT MAY NEED CULTURES PERFORMED. CONTINUE WITH IV ANTIBIOTICS AND SHE MAY NEED OUTPATIENT ARRANGEMENT FOR 6 WEEKS OF IV ANTIBIOTICS. Allergies No Known Drug Allergies Allergy (Verified 04/10/20 23:40) Unknown Home Medications: Glipizide [Glipizide ER] 5 mg PO BID 05/28/19 Metformin HCl [Metformin ER Osmotic] 1,000 mg PO BID 05/28/19 lisinopriL [Lisinopril] 1 tab PO DAILY 04/10/20 - Past Medical/Surgical History Has patient received pneumonia vaccine in the past: No Diabetic: Yes -: HTN -: NIDDM -: c-sec x 4 -: hernia repair -: gall bladder removed -: left ovary removed -: bilateral fallopian tubes removed - Family History Mother Medical History: Hypertension, Diabetes, Other (see notes) Notes: CHF Father Medical History: Hypertension, Other (see notes) Notes: CHF - Social History Smoking Status: Never smoker Alcohol use: Yes CD- Drugs: No Caffeine use: Yes Place of Residence: Home Review of Systems 10-point ROS is otherwise unremarkable Physical Examination - Vital Signs Temperature: 97.8 F Blood Pressure: 153/95 Pulse: 85 Respirations: 18 Pulse Ox (%): 96 - Physical Exam General: Alert, In no apparent distress, Oriented x3 HEENT: Atraumatic, PERRLA, Mucous membr. moist/pink, EOMI, Sclerae nonicteric Neck: Supple, 2+ carotid pulse no bruit, No LAD, Without JVD or thyroid abnormality Respiratory: Clear to auscultation bilaterally, Normal air movement Cardiovascular: Regular rate/rhythm, Normal S1 S2 Gastrointestinal: Normal bowel sounds, No tenderness Musculoskeletal: Erythema, Tenderness, Warmth, Other (RIGHT 5TH TOE WITH ULCER ON THE PROXIMAL SURFACE) Integumentary: No rashes, Tenderness/swelling, Erythema, Warmth Neurological: Normal gait, Normal speech, Normal strength at 5/5 x4 extr, Normal tone, Normal affect Lymphatics: No axilla or inguinal lymphadenopathy - Studies Laboratory Data (last 24 hrs) 04/10/20 18:16: Sodium 136, Potassium 3.4 L, BUN 19 H, Creatinine 0.58, Glucose 260 H 04/10/20 18:16: WBC 9.3, Hgb 13.9, Hct 41.6, Plt Count 182 Assessment & Plan - Problems (Diagnosis) (1) Diabetic foot ulcer Current Visit: Yes Status: Acute (2) Osteomyelitis Current Visit: Yes Status: Acute (3) Cellulitis Current Visit: Yes Status: Acute (4) Gouty arthropathy Current Visit: Yes Status: Acute - Plan 1. Continue with IV antibiotic to cover g positives, g negatives, and anaerobes. Will treat with IV vancomycin and IV Zosyn 2. Continue with local wound care 3. Wound care consultation/surgical consultation 4. Gentle IV hydration 5. Monitor CBC; monitor renal function closely 6. Strict blood sugar monitoring 7. Pain control 8. GI and DVT prophylaxis Discharge Plan: Home Plan to discharge in: Greater than 2 days - Advance Directives Does patient have a Living Will: No Does patient have a Durable POA for Healthcare: No - Code Status/Comfort Care Code Status Assessed: Yes Code Status: Full Code Critical Care: No Time Spent Managing PTS Care (In Minutes): 45
[2020-04-11 05:45] LABS: Absolute Lymphocytes (CBC) 0.7 K/uL (0.7-4.9); Basophils % 0.2 % (0-1.3); Hematocrit 38.8 % (36.0-45.0); Lymphocytes % 8.2 % (15.3-44.8); MPV 11.5 fL (7.6-11.3); RBC Red Blood Cell Count 4.53 M/uL (3.86-4.86)
[2020-04-11 07:24] LABS: ALT/SGPT 40 U/L (12-78); AST/SGOT 51 U/L (15-37); Albumin 2.9 g/dL (3.4-5.0); Alkaline Phosphatase 106 U/L (45-117); BUN Blood Urea Nitrogen 9 mg/dL (7-18); Bicarbonate 24 mmol/L (21-32); Bilirubin Total 0.8 mg/dL (0.2-1.0); Creatine Phosphokinase 61 U/L (26-192); Glucose Level 297 mg/dL (74-106); HDL Cholesterol 69 mg/dL (40-60); LDL Cholesterol, Calculated 55 (<130); Magnesium 1.6 mg/dL (1.8-2.4); Phosphorus 1.4 mg/dL (2.5-4.9); Potassium 3.8 mmol/L (3.5-5.1); Protein, Total 6.9 g/dL (6.4-8.2); Sodium Level 136 mmol/L (136-145); Uric Acid 1.6 mg/dL (2.6-6.0)
--- NOTE | 2020-04-11 08:38 | P.PN ---
Subjective Date of Service: 04/11/20 Patient slowly improving. Continue with IV antibiotics and pain control. Outpatient follow with wound healing Center. Anticipate discharge in morning Review of Systems 10-point ROS is otherwise unremarkable Physical Examination - Vital Signs Temperature: 97.0 F Blood Pressure: 137/92 Pulse: 84 Respirations: 18 Pulse Ox (%): 100 - Physical Exam General: Alert, In no apparent distress, Oriented x3 Respiratory: Clear to auscultation bilaterally, Normal air movement Cardiovascular: Regular rate/rhythm, Normal S1 S2, No murmurs Gastrointestinal: Normal bowel sounds, Soft and benign, Non-distended, No tenderness, No rebound, No guarding Musculoskeletal: No tenderness Neurological: Normal speech, Normal tone, Sensation intact, Cranial nerves 3-12 intact Lymphatics: No axilla or inguinal lymphadenopathy - Studies Laboratory Data (last 24 hrs) 04/10/20 18:16: Sodium 136, Potassium 3.4 L, BUN 19 H, Creatinine 0.58, Glucose 260 H 04/10/20 18:16: WBC 9.3, Hgb 13.9, Hct 41.6, Plt Count 182 Medications List Reviewed: Yes Assessment & Plan - Problems (Diagnosis) (1) Diabetic foot ulcer Current Visit: Yes Status: Acute (2) Osteomyelitis Current Visit: Yes Status: Acute (3) Cellulitis Current Visit: Yes Status: Acute (4) Gouty arthropathy Current Visit: Yes Status: Acute - Plan Continue with current plan of care as mentioned below: 1. Continue with IV antibiotic; will switch to Levaquin at discharge as long as cultures are negative as this has good bone penetration for MSSA and g negatives and will be switched to oral antibiotics after 4 weeks. At this time good anaerobic coverage with Zosyn. Renal function remained stable. 2. Continue with local wound care 3. Wound care consultation/surgical consultation is pending 4. Gentle IV hydration 5. Monitor CBC 6. Strict blood sugar monitoring 7. Pain control 8. GI and DVT prophylaxis Discharge Plan: Home Plan to discharge in: 24 Hours - Advance Directives Does patient have a Living Will: No Does patient have a Durable POA for Healthcare: No - Code Status/Comfort Care Code Status Assessed: Yes Code Status: Full Code Critical Care: Yes Time Spent Managing PTS Care (In Minutes): 30
[2020-04-11] MEDS: MUPIROCIN 2% OINT 22GM TUBE TOP SCH ×2 (09:00→20:07)
[2020-04-11] MEDS ORDERED: ENALAPRIL 2.5 MG TAB PO SCH (09:00)
[2020-04-11] MEDS ORDERED: POTASSIUM PHOS 30 MM in NA CHLORIDE 0.9% 500 ML IV ONE (09:00)
[2020-04-11] MEDS ORDERED: Magnesium Sulfate 2gm IVPB 2 G/50 ML BAG IV ONE (09:00)
[2020-04-11] MEDS ORDERED: GLIPIZIDE S.A. 5 MG TAB PO SCH (09:00)
--- NOTE | 2020-04-11 09:43 | CON ---
Date of Consultation: 04/11/2020 Brief History Of Present Illness: Patient is 39-year-old, female, who presents to the [facility] with complaints of swelling, tenderness on her right foot fifth toe on the side. 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 She knows she has diabetes, but has been unable to control it due to her busy lifestyle a nd excessive work schedule and as such, she noted that the pain started yesterday just prior to her a dmission and an ulcer/blister developed on the top of her toe within the last 24 hours or so. Past Medical History: Significant for diabetes, hypertension. Past Surgical History: Includes cholecystectomy, , hernia repair, also salpingectomy. Review of Systems: 10-point review of systems other than HPI, denies. Physical Examination: Vital Signs: At the time of my examination, her vital signs were a temperature of 97.0, pulse of 84, respiratory rate 18, blood pressure 137/92, SpO2 100% on room air. General: She is awake, alert, oriented. Psychiatric: Appropriate conversive. HEENT: She is normocephalic. Sclerae icteric. Mucous membranes moist. Oropharynx clear. Neck: Supple. No JVD. Chest: Normal expansion and excursion. Cardiovascular: Regular rate and rhythm. Pulmonary: Clear to auscultation bilaterally. Abdomen: Soft. Extremities: Focused examination of the right lower extremity, she has an ulcer on the fifth toe at the distal interphalangeal joint. It is consistent with an infected blister. There is no drainable collection and manipulation of this area and has some mild tenderness, but there is no drainable layla ections at this point and minimal necrotic tissue on top. Laboratory Data: She said she had a laboratory examination as well, which showed a white blood cell count 8.1, hemoglobin 13.3, hematocrit of 38.8, platelet count is 160. Her neutrophils were elevated at 89.5. Her PT 11.8, INR 1.0, PTT 29. Her sodium 136, potassium 3.8, chloride 105, carbon dioxide 24, BUN 9, creatinine 0.42, glucose was 297. Her lactic acid 0.8, uric acid 1.6, procalcitonin less than 0.05. UA showed glucose, ketones, trace blood. test was negative. She had imaging performed which included an x-ray of the right foot, which was officially read as no definitive acute bone findings seen. Questionable lucency along the medial margin of the distal fifth phalanx. Ther e was concern for osteomyelitis. Direct or dedicated films of the fifth toe could be obtained. Afte r this was done, there was no gross bony destructive process seen. However, in the mid medial margin of the fifth distal phalanx does remain more loose with suspicious for cortical disruption in the se tting of soft tissue infection. Early osteomyelitis of the fifth distal phalanx is suspected. Assessment And Plan: This is a 39-year-old female, who comes in with signs and symptoms of an infect ed fifth toe. 1.IV fluid hydration. 2.Antibiotic coverage. 3.I have recommended local wound care with [facility] in the area. However, I have explained tyrese t if this is unsuccessful, she will likely require amputation. However, patient states she has gone through this process with her mother who was a diabetic and had multiple amputations as such she does not want to entertain amputations at this point and would like to try nonoperative management with s imple antibiotics rather than debridement or amputation and therefore we will follow along with you. Continue antibiotics. I have explained that if the patient is discharged home on antibiotics she ca n follow up with me on a weekly basis to ensure that she gets good improvement of the wound in additi on medical management to optimize her blood sugar control as I have explained that this is a urbano comp onent to her preventing further problems with her feet. She displayed understanding of above stated plan, agrees to proceed as indicated. Thank you for the interesting consult. JENNIFER/JENAE Voice ID: [id number] Report ID: [id number]
[2020-04-11 09:45] LABS: Blood Morphology Comment NOT SEEN (NOT SEEN); Platelet Estimate ADEQ; Urine White Blood Cell Casts OK
[2020-04-11] MEDS: SODIUM HYPOCHLORITE 0.25% 473 ML TOP SCH ×2 (12:10→20:06)
[2020-04-11] MEDS: VANCOMYCIN 1.75 GM in NA CHLORIDE 0.9% 500 ML IVPB SCH ×2 (13:00→23:44)
[2020-04-11] MEDS ORDERED: TRAMADOL HCL 50 MG TAB PO PRN (13:14)
[2020-04-11] MEDS: HYDROCODONE/APAP 7.5/325 MG TAB PO PRN ×2 (14:28→20:05)
[2020-04-11] MEDS: INSULIN -REGULAR HUMAN 50 UNIT/0.5 ML ML SQ SCH ×2 (16:30→20:10)
[2020-04-11] MEDS: METFORMIN ER 500 MG TAB PO SCH (16:50)
[2020-04-11] MEDS ORDERED: INSULIN GLARGINE 100 UNITS/ML SQ SCH (21:00)
[2020-04-11] MEDS ORDERED: HOME MED 1 EA UNK (Metformin Hcl [Metformin Er Osmotic] 1,000 MG) PO SCH (21:00)
[2020-04-11] MEDS ORDERED: COLCHICINE 0.6 MG TAB PO SCH (23:00)
[2020-04-11] MEDS ORDERED: INSULIN 70/30 100 UNITS/ML SQ ONE (23:00)
[2020-04-12 06:20] LABS: BUN Blood Urea Nitrogen 11 mg/dL (7-18); Bicarbonate 22 mmol/L (21-32); Glucose Level 228 mg/dL (74-106); Magnesium 1.7 mg/dL (1.8-2.4); Phosphorus 2.2 mg/dL (2.5-4.9); Potassium 3.6 mmol/L (3.5-5.1); Sodium Level 139 mmol/L (136-145)
[2020-04-12 07:10] LABS: Absolute Lymphocytes (CBC) 2.4 K/uL (0.7-4.9); Basophils % 0.6 % (0-1.3); Hematocrit 34.8 % (36.0-45.0); Lymphocytes % 28.1 % (15.3-44.8); MPV 11.2 fL (7.6-11.3); RBC Red Blood Cell Count 4.02 M/uL (3.86-4.86)
[2020-04-12] MEDS: INSULIN -REGULAR HUMAN 50 UNIT/0.5 ML ML SQ SCH ×4 (08:36→21:09)
[2020-04-12] MEDS: METFORMIN ER 500 MG TAB PO SCH ×2 (08:38→17:03)
[2020-04-12] MEDS: INSULIN GLARGINE 100 UNITS/ML SQ SCH ×2 (08:38→21:09)
[2020-04-12] MEDS ORDERED: MAGNESIUM SULFATE 1 gm IVPB 1 GM/100 ML BAG IV ONE (09:00)
[2020-04-12] MEDS: MUPIROCIN 2% OINT 22GM TUBE TOP SCH ×2 (09:00→21:11)
[2020-04-12] MEDS ORDERED: lisinopriL 20 MG TAB PO SCH (09:00)
[2020-04-12] MEDS: PIPER/TAZO/NS 3.375gm 3.375 GM/100 ML BAG IVPB SCH (11:15)
--- NOTE | 2020-04-12 12:17 | P.PN ---
Subjective Date of Service: 04/12/20 Chief Complaint: Diabetic foot ulcer/osteomyelitis versus gouty arthropathy Subjective: Improving (patient continues to have minor improvement) Physical Examination - Vital Signs Temperature: 97.4 F Blood Pressure: 169/87 Pulse: 80 Respirations: 16 Pulse Ox (%): 9 - Physical Exam General: Alert, In no apparent distress, Cooperative Integumentary: Other (toe has skin callus, minimal tenderness.) - Studies Medications List Reviewed: Yes Assessment And Plan - Plan - daily wound care with dakins / santyl - antibiotics at home - follow up with me in clinic next week, if no improvement will re-visit the surgical options - medical management
--- NOTE | 2020-04-12 16:10 | P.PN ---
Subjective Date of Service: 04/12/20 Chief Complaint: Diabetic foot ulcer/osteomyelitis versus gouty arthropathy Subjective: Doing well Physical Examination - Vital Signs Temperature: 97.4 F Blood Pressure: 169/87 Pulse: 80 Respirations: 16 Pulse Ox (%): 9 - Physical Exam General: Alert, In no apparent distress, Oriented x3, Cooperative HEENT: Atraumatic Neck: Supple Respiratory: Clear to auscultation bilaterally, Normal air movement Cardiovascular: Normal pulses, Regular rate/rhythm Gastrointestinal: Normal bowel sounds, Soft and benign, Non-distended Neurological: Normal speech, Normal strength at 5/5 x4 extr, Normal tone - Studies Medications List Reviewed: Yes Assessment & Plan Discharge Plan: Home Plan to discharge in: 48 Hours Physician Review Additional Text: Impression: Diabetic foot ulcer to the 5th digit suspect early osteomyelitis Diabetes mellitus type 2 with hyperglycemia insulin-dependent Hypertension Obesity, BMI 31.9 Plan: Diabetic foot ulcer to the 5th digit suspect early osteomyelitis: IV antibiotic therapy adjusted. Patient now on vancomycin and cefepime. Case discussed at length with surgery. Suspect early osteomyelitis. Will order MRI to further evaluate. If positive patient will likely require long-term IV antibiotic therapy with wound care. Options include long-term acute care facility verses skilled placement versus home with IV antibiotic therapy. Will consult infectious disease for further recommendation. Patient does not want any surgical intervention at this time. Will continue to monitor and assess. Diabetes mellitus type 2 with hyperglycemia insulin-dependent: A1c 11.8. Continue to adjust basal insulin. Continue metformin. Hypertension: Blood pressure still elevated. Increase lisinopril to twice daily. Obesity, BMI 31.9: Continue to address lifestyle modification education. Time Spent Managing Pts Care (In Minutes): 55
[2020-04-12] MEDS: VANCOMYCIN 2 GM in NA CHLORIDE 0.9% 500 ML IVPB SCH (16:15)
[2020-04-12] MEDS: COLLAGENASE 30 GM OINTMENT TOP SCH (16:19)
[2020-04-12] MEDS: SODIUM HYPOCHLORITE 0.25% 473 ML TOP SCH ×2 (16:20→21:12)
[2020-04-12] MEDS: ENOXAPARIN 40 MG/0.4 ML SQ SCH (17:05)
[2020-04-12] MEDS: HYDROCODONE/APAP 7.5/325 MG TAB PO PRN (19:50)
[2020-04-12] MEDS ORDERED: CEFEPIME 1 GM/VIAL IV SCH (21:00)
[2020-04-12] MEDS: lisinopriL 20 MG TAB PO SCH (21:08)
[2020-04-12] MEDS: CEFEPIME/SWI 1gm 10 ML IVP SCH (21:10)
[2020-04-13] MEDS: VANCOMYCIN 2 GM in NA CHLORIDE 0.9% 500 ML IVPB SCH ×2 (00:51→12:11)
[2020-04-13] MEDS: NA CHLORIDE 0.9% 1,000 ML IV SCH ×4 (00:53→21:04)
[2020-04-13 04:39] LABS: Absolute Lymphocytes (CBC) 3.3 K/uL (0.7-4.9); Basophils % 0.8 % (0-1.3); Hematocrit 34.8 % (36.0-45.0); Lymphocytes % 45.8 % (15.3-44.8); MPV 11.8 fL (7.6-11.3); RBC Red Blood Cell Count 3.94 M/uL (3.86-4.86)
[2020-04-13 04:51] LABS: BUN Blood Urea Nitrogen 7 mg/dL (7-18); Bicarbonate 27 mmol/L (21-32); Glucose Level 167 mg/dL (74-106); Magnesium 1.5 mg/dL (1.8-2.4); Potassium 3.1 mmol/L (3.5-5.1); Sodium Level 138 mmol/L (136-145)
[2020-04-13] MEDS ORDERED: POTASSIUM PHOS 30 MM in NA CHLORIDE 0.9% 500 ML IV ONE (05:04)
[2020-04-13] MEDS ORDERED: MAGNESIUM 50% 3 GM in NA CHLORIDE 0.9% 100 ML IV ONE (05:04)
[2020-04-13] MEDS: INSULIN -REGULAR HUMAN 50 UNIT/0.5 ML ML SQ SCH ×4 (07:30→21:07)
[2020-04-13] MEDS: CEFEPIME/SWI 1gm 10 ML IVP SCH ×2 (08:36→21:04)
[2020-04-13] MEDS: INSULIN GLARGINE 100 UNITS/ML SQ SCH ×2 (08:36→21:07)
[2020-04-13] MEDS: MAGNESIUM OXIDE 400 MG TAB PO SCH ×2 (08:37→21:06)
[2020-04-13] MEDS: lisinopriL 20 MG TAB PO SCH ×2 (08:37→21:07)
[2020-04-13] MEDS: METFORMIN ER 500 MG TAB PO SCH ×2 (08:37→16:40)
[2020-04-13] MEDS: SODIUM HYPOCHLORITE 0.25% 473 ML TOP SCH ×2 (08:38→21:08)
[2020-04-13] MEDS: MUPIROCIN 2% OINT 22GM TUBE TOP SCH ×2 (08:39→21:08)
[2020-04-13] MEDS: COLLAGENASE 30 GM OINTMENT TOP SCH (08:39)
[2020-04-13] MEDS: POTASS/SODIUM PHOSPHATE 1 PKT POWD.PACK PO SCH (08:46)
--- NOTE | 2020-04-13 08:57 | EKG ---
Test Date: 2020-04-10 Test Time: 21:35:35 Merchandise Shopper: ARAM MEASUREMENT RESULTS: Intervals: Rate: 81 IA: 184 QRSD: 94 QT: 402 QTc: 466 [place]: P: 59 IA: 184 QRS: 74 T: 65 INTERPRETIVE STATEMENTS: Normal sinus rhythm Normal ECG Compared to ECG 01/15/2015 03:09:36 No significant changes Electronically Signed On 04-13-20 08:54:31 CDT by Leo Magana
[2020-04-13] MEDS ORDERED: MAGNESIUM SULFATE 1 gm IVPB 1 GM/100 ML BAG IV ONE (09:00)
--- NOTE | 2020-04-13 09:15 | P.CNS ---
Date of Consult: 04/13/20 Subjective: Patient is a 39-year-old female who presents with worsening pain to her right foot and erythema on the right 5th toe for the past few days. Patient has past medical history of diabetes. X-ray revealed early osteomyelitis which I have been consulted for. Patient examined at bedside, reports working 12 hr shifts for 14 days at a time. Past medical/surgical history: Hypertension, NIDDM, x4, hernia repair, and gallbladder removal, left ovary removal, bilateral fallopian tube removal Family history: Mother with hypertension, diabetes and CHF. Father with hypertension and CHF Social history: Denies tobacco use. Reports occasional alcohol use Allergies: No known drug allergy Active Medications Acetaminophen (Tylenol -Extra Strength) 500 mg PO Q6H PRN PRN Reason: pain/fever Stop: 05/10/20 22:09 Last Admin: 04/11/20 09:49 Dose: 500 mg Documented by: Hydrocodone Bitart/Acetaminophen ([place] 7.5/325 Mg) 1 tab PO Q6H PRN PRN Reason: Pain scale 5-7 (Moderate) Stop: 05/11/20 13:15 Last Admin: 04/12/20 19:50 Dose: 1 tab Documented by: Collagenase (Santyl Ointment) 1 appl TOP DAILY ALEXEI Stop: 05/12/20 09:01 Last Admin: 04/13/20 08:39 Dose: 1 dose Documented by: Dextrose (Dextrose 50% Syringe/Vial) 12.5 gm IV PRN PRN; Protocol PRN Reason: HYPOGLYCEMIA Stop: 05/10/20 22:17 Enoxaparin Sodium (Lovenox 40 Mg Inj) 40 mg SQ DAILY 5 PM ALEXEI Stop: 05/12/20 17:01 Last Admin: 04/12/20 17:05 Dose: 40 mg Documented by: Glucagon (Glucagen) 1 mg IM 1X PRN; Protocol PRN Reason: HYPOGLYCEMIA Stop: 05/10/20 22:17 Sodium Chloride (Ns 1000 Ml Ivbag) 1,000 mls @ 75 mls/hr IV .[id number] ALEXEI Stop: 05/10/20 23:01 Last Admin: 04/13/20 00:53 Dose: 1,000 mls Documented by: Vancomycin HCl 2 gm/ Sodium (Chloride) 500 mls @ 250 mls/hr IVPB Q12H [facility]LEX[facility] Stop: 05/12/20 13:01 Last Admin: 04/13/20 00:51 Dose: 500 mls Documented by: Cefepime HCl (Maxipime 1 Gm/10 Ml Ivp) 10 mls @ 200 mls/hr IVP Q12HR [facility] Stop: 05/12/20 21:01 Last Admin: 04/13/20 08:36 Dose: 10 mls Documented by: Potassium Phosphate 30 mm/ (Sodium Chloride) 500 mls @ 100 mls/hr IV 1X ONE; Protocol Stop: 04/13/20 10:03 Last Admin: 04/13/20 08:35 Dose: 500 mls Documented by: Magnesium Sulfate/Dextrose (Magnesium Sulfate 1gm/D5w Ivpb (Premix)) 1 gm in 100 mls @ 100 mls/hr IV 1X ONE Stop: 04/13/20 09:59 Last Admin: 04/13/20 06:48 Dose: 100 mls Documented by: Insulin Glargine (Lantus) 15 units SQ BID [facility] Stop: 05/12/20 09:01 Last Admin: 04/13/20 08:36 Dose: 15 units Documented by: Insulin Human Regular (Novolin -R) 0 unit SQ ACHS [facility]; Protocol Stop: 05/11/20 16:31 Last Admin: 04/13/20 07:30 Dose: Not Given Documented by: Lisinopril (Prinivil) 20 mg PO BID [facility] Stop: 05/12/20 21:01 Last Admin: 04/13/20 08:37 Dose: 20 mg Documented by: Magnesium Oxide (Mag 0x Tab) 400 mg PO BID [facility] Stop: 04/15/20 21:01 Last Admin: 04/13/20 08:37 Dose: 400 mg Documented by: Metformin HCl (Glucophage Er) 1,000 mg PO BIDWM [facility] Stop: 05/11/20 17:01 Last Admin: 04/13/20 08:37 Dose: 1,000 mg Documented by: Morphine Sulfate (Morphine Sulfate) 4 mg IV Q4H PRN PRN Reason: Pain scale 8-10 (Severe) Stop: 05/10/20 22:09 Mupirocin (Bactroban 2% Ointment) 1 appl TOP BID [facility] Stop: 05/11/20 09:01 Last Admin: 04/13/20 08:39 Dose: 1 appl Documented by: Ondansetron HCl (Zofran) 4 mg IV Q4H PRN PRN Reason: NAUSEA / VOMITING Stop: 05/10/20 22:09 Potassium Phos/Sodium Phos (Neutra-Phos Pwd) 1 pkt PO DAILY [facility] Stop: 04/15/20 09:01 Last Admin: 04/13/20 08:46 Dose: 1 pkt Documented by: Sodium Chloride (Normal Saline Flush) 10 ml IV BID [facility] Stop: 05/11/20 09:01 Last Admin: 04/13/20 08:38 Dose: 10 ml Documented by: Sodium Hypochlorite ([place] 0.25% Half Strength) 1 appl TOP BID [facility] Stop: 05/11/20 21:01 Last Admin: 04/13/20 08:38 Dose: 1 appl Documented by: Tramadol HCl (Ultram) 50 mg PO TID PRN PRN Reason: PAIN Stop: 05/11/20 13:15 ROS: CV: Denies chest pain RESP: Denies shortness of breath, cough ABD: reports diarrhea since admission, no nausea Extremities: Denies neuropathy, reports pain and erythema to right foot 5th digit Objective: Temp Pulse Resp BP Pulse Ox 97.0 F 79 18 128/71 100 04/13/20 05:09 04/13/20 08:37 04/13/20 05:09 04/13/20 08:37 04/13/20 05:09 Labs: WBC 7.2, Hgb 11.8, Hct 34.8, PLT 159, ESR 23, Na 138, K 3.1, Albumin 2.9 Foot Xray 04/10: EXAM DESCRIPTION: RAD - Foot Right 2 View - 04/10/2020 8:35 pm CLINICAL HISTORY: 5th digit only needed COMPARISON: Foot Right 3 View dated 04/10/2020 FINDINGS: The two-view examination of the right fifth toe performed. No gross bone destructive process seen. However, of the medial margin of the fifth distal phalanx does remain more lucent with suspicion for cortical disruption. In the setting of a soft tissue infection, early osteomyelitis of the fifth distal phalanx is suspected. ROS: General: Awake, alert, lying in bed CV: S1, S2. RESP: Good breath sounds throughout lung rizzo ABD: Soft, round, nontender, bowel sounds present Extremities: No edema, 2+ pedal pulses Skin: Right lateral 5th digit with diabetic foot ulcer with granulation tissue and small amount of slough, no drainage. Annabella area with warmth, swelling and erythema Assessment and plan: Right 5th digit early osteomyelitis Diabetes Mellitis, A1C 11.8 Diarrhea, will add probiotic No leukocytosis, Afebrile Currently on Cefepime and Vancomycin, will need total of 6 weeks of IV antibiotics Discussed with the patient and patient agreed to come to the hospital daily to receive IV antibiotics, patient does not want to go to LTAC Educated patient on controlling blood sugars to promote healing and wearing proper shoes Will continue to monitor Thank you for consult Patient discussed with Dr. Sarabia
[2020-04-13] MEDS: HYDROCODONE/APAP 7.5/325 MG TAB PO PRN ×2 (12:10→21:06)
--- NOTE | 2020-04-13 14:40 | P.PN ---
Subjective Date of Service: 04/13/20 Chief Complaint: Diabetic foot ulcer/osteomyelitis versus gouty arthropathy Subjective: Improving, Doing well Physical Examination - Vital Signs Temperature: 97.4 F Blood Pressure: 182/94 Pulse: 84 Respirations: 18 Pulse Ox (%): 100 - Physical Exam General: Alert, Cooperative HEENT: Atraumatic Neck: Supple Respiratory: Clear to auscultation bilaterally, Normal air movement Cardiovascular: Normal pulses, Regular rate/rhythm Gastrointestinal: Normal bowel sounds Integumentary: Other (Erythema to the right 5th digit improved. Swelling also improved. Ulcer still present.) Neurological: Normal speech, Normal strength at 5/5 x4 extr, Normal tone - Studies Medications List Reviewed: Yes Assessment & Plan Discharge Plan: Other (Home with IV antibiotic therapy verses long-term acute care facility) Plan to discharge in: 24 Hours Physician Review Additional Text: Impression: Diabetic foot ulcer to the 5th digit suspect early osteomyelitis Diabetes mellitus type 2 with hyperglycemia insulin-dependent Hypertension Obesity, BMI 31.9 Plan: Diabetic foot ulcer to the 5th digit suspect early osteomyelitis: Will order MRI to further evaluate osteomyelitis. Patient now on vancomycin and cefepime. Case discussed with surgery and infectious disease. Both recommend IV antibiotic therapy for 6 weeks. Continue aggressive wound care. Options include going home with IV antibiotic therapy verses long-term acute care facility placement. Social work to determine which will be the most cost effective for her. Await recommendations by social secretary. Anticipate discharge within the next 24 hr. I will turn the service over to the hospitalist team tomorrow. I will go the plan of care with him. Diabetes mellitus type 2 with hyperglycemia insulin-dependent: A1c 11.8. Continue to adjust basal insulin for better diabetic control. Continue metformin. Hypertension: Lisinopril was increased to 20 mg 1 pill twice daily. Will consider adding additional medication if blood pressure remains elevated. Obesity, BMI 31.9: Continue to address lifestyle modification education. Time Spent Managing Pts Care (In Minutes): 55
[2020-04-13] MEDS: ENOXAPARIN 40 MG/0.4 ML SQ SCH (16:39)
[2020-04-14] MEDS: VANCOMYCIN 2 GM in NA CHLORIDE 0.9% 500 ML IVPB SCH (00:44)
[2020-04-14 04:53] LABS: Absolute Lymphocytes (CBC) 2.8 K/uL (0.7-4.9); Basophils % 0.5 % (0-1.3); Hematocrit 35.6 % (36.0-45.0); Lymphocytes % 35.6 % (15.3-44.8); MPV 10.8 fL (7.6-11.3)
[2020-04-14 05:09] LABS: BUN Blood Urea Nitrogen 8 mg/dL (7-18); Bicarbonate 28 mmol/L (21-32); Glucose Level 133 mg/dL (74-106); Magnesium 1.6 mg/dL (1.8-2.4); Potassium 3.2 mmol/L (3.5-5.1); Sodium Level 137 mmol/L (136-145)
[2020-04-14] MEDS: NA CHLORIDE 0.9% 1,000 ML IV SCH ×2 (05:57→16:25)
[2020-04-14] MEDS: INSULIN -REGULAR HUMAN 50 UNIT/0.5 ML ML SQ SCH ×4 (07:30→20:22)
--- NOTE | 2020-04-14 08:41 | P.PN ---
Subjective Date of Service: 04/14/20 Chief Complaint: Diabetic foot ulcer/osteomyelitis versus gouty arthropathy Subjective: Improving (skin peeled off toe, no new issues, redness, pain continue to improve) Physical Examination - Vital Signs Temperature: 98.3 F Blood Pressure: 128/81 Pulse: 85 Respirations: 18 Pulse Ox (%): 98 - Physical Exam General: Alert, In no apparent distress, Cooperative Integumentary: Other (5th toe continues to improve, cellulitis improving, tenderness improving, swelling improving) - Studies Medications List Reviewed: Yes Assessment And Plan - Plan - daily wound care with dakins / santyl - antibiotics at home - follow up with me in clinic next week, if no improvement will re-visit the surgical options - medical management Physician Review Additional Text: Impression: Diabetic foot ulcer to the 5th digit suspect early osteomyelitis Diabetes mellitus type 2 with hyperglycemia insulin-dependent Hypertension Obesity, BMI 31.9 Plan: Diabetic foot ulcer to the 5th digit suspect early osteomyelitis: Will order MRI to further evaluate osteomyelitis. Patient now on vancomycin and cefepime. Case discussed with surgery and infectious disease. Both recommend IV antibiotic therapy for 6 weeks. Continue aggressive wound care. Options include going home with IV antibiotic therapy verses long-term acute care facility placement. Social work to determine which will be the most cost effective for her. Await recommendations by social work supervisor. Anticipate discharge within the next 24 hr. I will turn the service over to the hospitalist team tomorrow. I will go the plan of care with him. Diabetes mellitus type 2 with hyperglycemia insulin-dependent: A1c 11.8. Continue to adjust basal insulin for better diabetic control. Continue metformin. Hypertension: Lisinopril was increased to 20 mg 1 pill twice daily. Will consider adding additional medication if blood pressure remains elevated. Obesity, BMI 31.9: Continue to address lifestyle modification education.
[2020-04-14] MEDS: MUPIROCIN 2% OINT 22GM TUBE TOP SCH ×2 (08:44→20:24)
[2020-04-14] MEDS: lisinopriL 20 MG TAB PO SCH ×2 (08:45→20:23)
[2020-04-14] MEDS: SODIUM HYPOCHLORITE 0.25% 473 ML TOP SCH ×2 (08:45→20:24)
[2020-04-14] MEDS: COLLAGENASE 30 GM OINTMENT TOP SCH (08:45)
[2020-04-14] MEDS: CEFEPIME/SWI 1gm 10 ML IVP SCH ×2 (08:46→20:23)
[2020-04-14] MEDS: MAGNESIUM OXIDE 400 MG TAB PO SCH ×2 (08:46→20:23)
[2020-04-14] MEDS: INSULIN GLARGINE 100 UNITS/ML SQ SCH ×2 (08:46→20:22)
[2020-04-14] MEDS: POTASS/SODIUM PHOSPHATE 1 PKT POWD.PACK PO SCH (08:46)
[2020-04-14] MEDS: METFORMIN ER 500 MG TAB PO SCH ×2 (08:46→16:24)
[2020-04-14] MEDS ORDERED: MAGNESIUM SULFATE 1 gm IVPB 1 GM/100 ML BAG IV ONE (09:00)
[2020-04-14 09:01] VITALS: O2SAT 98
[2020-04-14] MEDS: VANCOMYCIN 2.25 GM in NA CHLORIDE 0.9% 500 ML IVPB SCH (12:00)
--- NOTE | 2020-04-14 12:24 | P.PN ---
Subjective Date of Service: 04/14/20 Chief Complaint: Diabetic foot ulcer/osteomyelitis versus gouty arthropathy Subjective: No new changes, Improving (Pain is controlled well No fever or chills) Review of Systems 10-point ROS is otherwise unremarkable Physical Examination - Vital Signs Temperature: 98.3 F Blood Pressure: 128/81 Pulse: 85 Respirations: 18 Pulse Ox (%): 98 - Physical Exam General: Alert, In no apparent distress, Oriented x3 HEENT: Atraumatic, Normocephalic Neck: Supple, 2+ carotid pulse no bruit Respiratory: Clear to auscultation bilaterally, Normal air movement Cardiovascular: Normal pulses, Regular rate/rhythm Capillary refill: <2 Seconds Gastrointestinal: Normal bowel sounds, Soft and benign Musculoskeletal: Tenderness, Other (Dressing intact on the right foot) Integumentary: Diabetic ulcer (Right foot ulcer dressing intact) Neurological: Normal speech, Normal strength at 5/5 x4 extr Lymphatics: No axilla or inguinal lymphadenopathy Rectal: Deferred - Studies Laboratory Last Values WBC 9.3 K/uL (4.3-10.9) 04/10/20 18:16 RBC 4.76 M/uL (3.86-4.86) 04/10/20 18:16 Hgb 13.9 g/dL (12.0-15.0) 04/10/20 18:16 Hct 41.6 % (36.0-45.0) 04/10/20 18:16 MCV 87.3 fL (80-100) D 04/10/20 18:16 MCH 29.3 pg (27.0-35.0) 04/10/20 18:16 MCHC 33.5 g/dL (32.0-36.0) 04/10/20 18:16 RDW 12.9 % (12.1-15.2) 04/10/20 18:16 Plt Count 182 K/uL (152-406) 04/10/20 18:16 MPV 11.5 fL (7.6-11.3) H 04/10/20 18:16 Neutrophils % 60.1 % (41.7-73.7) 04/10/20 18:16 Lymphocytes % 30.0 % (15.3-44.8) 04/10/20 18:16 Monocytes % 8.1 % (3.3-12.3) 04/10/20 18:16 Eosinophils % 1.1 % (0-4.4) 04/10/20 18:16 Basophils % 0.7 % (0-1.3) 04/10/20 18:16 Absolute Neutrophils 5.6 K/uL (1.8-8.0) 04/10/20 18:16 Absolute Lymphocytes 2.8 K/uL (0.7-4.9) 04/10/20 18:16 Absolute Monocytes 0.7 K/uL (0.1-1.3) 04/10/20 18:16 Absolute Eosinophils 0.1 K/uL (0-0.5) 04/10/20 18:16 Absolute Basophils 0.1 K/uL (0-0.5) 04/10/20 18:16 ESR Westergren 33 mm/HR (0-20) H 04/10/20 21:30 Sodium 136 mmol/L (136-145) 04/10/20 18:16 Potassium 3.4 mmol/L (3.5-5.1) L 04/10/20 18:16 Chloride 102 mmol/L (98-107) 04/10/20 18:16 Carbon Dioxide 26 mmol/L (21-32) 04/10/20 18:16 BUN 19 mg/dL (7-18) H 04/10/20 18:16 Creatinine 0.58 mg/dL (0.55-1.3) 04/10/20 18:16 Estimated GFR > 90 mL/min (=/>90) 04/10/20 18:16 Glucose 260 mg/dL (74-106) H 04/10/20 18:16 POC Glucose 193 mg/dL (65-120) H 04/10/20 19:37 Calcium 8.8 mg/dL (8.5-10.1) 04/10/20 18:16 Urine pH 5.5 (5.0-7.0) 04/10/20 19:11 Ur Specific [place] 1.025 (1.005-1.030) 04/10/20 19:11 Glucose (UA)(Auto) 2+ (NEG) H 04/10/20 19:11 Urine Ketones 2+ (NEG) H 04/10/20 19:11 Urine Blood Trace (NEG) H 04/10/20 19:11 Urine Nitrite Negative (NEG) 04/10/20 19:11 Ur Leukocyte Esterase Negative (NEG) 04/10/20 19:11 Urine Total Protein Negative (NEG) 04/10/20 19:11 Urine Test Neg (NEG) 04/10/20 19:11 Medications List Reviewed: Yes Assessment & Plan - Problems (Diagnosis) (1) Diabetic foot ulcer Current Visit: Yes Status: Acute (2) Osteomyelitis Current Visit: Yes Status: Acute Physician Review Additional Text: Impression: Diabetic foot ulcer to the 5th digit , osteomyelitis Diabetes mellitus type 2 with hyperglycemia insulin-dependent Hypertension Obesity, BMI 31.9 Plan: Diabetic foot ulcer to the 5th digit suspect early osteomyelitis: Will order MRI to further evaluate osteomyelitis. Patient now on vancomycin and cefepime. Case discussed with surgery and infectious disease. Both recommend IV antibiotic therapy for 6 weeks. Continue aggressive wound care. Options include going home with IV antibiotic therapy verses long-term acute care facility placement. Social work to determine which will be the most cost effective for her. Await recommendations by social service assistant. Anticipate discharge within the next 24 hr. I will turn the service over to the hospitalist team tomorrow. I will go the plan of care with him. Diabetes mellitus type 2 with hyperglycemia insulin-dependent: A1c 11.8. Continue to adjust basal insulin for better diabetic control. Continue metformin. Hypertension: Lisinopril was increased to 20 mg 1 pill twice daily. Will consider adding additional medication if blood pressure remains elevated. Obesity, BMI 31.9: Continue to address lifestyle modification education. 04/14/2020 Pain controlled well Appreciate help from surgery and ID Continue antibiotics Need antibiotics for 6 weeks Case management consult LTAC versus home health Pending placement Antihypertensives titrated Time Spent Managing Pts Care (In Minutes): 35
--- NOTE | 2020-04-14 13:30 | P.PN ---
Date of Service: 04/14/20 Subjective: Patient is a 39-year-old female who presents with worsening pain to her right foot and erythema on the right 5th toe for the past few days. Patient has past medical history of diabetes. X-ray revealed early osteomyelitis which I have been consulted for. Patient examined at bedside, reports working 12 hr shifts for 14 days at a time. Past medical/surgical history: Hypertension, NIDDM, x4, hernia repair, and gallbladder removal, left ovary removal, bilateral fallopian tube removal Patient examined at bedside. Reports 2-3 episodes of diarrhea today. Denies nausea, shortness or breath and fevers. Reports pain to right 5th digit improving Objective: Temp Pulse Resp BP Pulse Ox 98.3 F 85 18 128/81 98 04/14/20 12:24 04/14/20 12:24 04/14/20 12:24 04/14/20 12:24 04/14/20 12:24 Labs: WBC 7.9, Hgb 12.3, Hct 35.6, PLT 164, ESR 23, Na 137, K 3.2, Albumin 2.9, BUN 8, Creat 0.39 Foot Xray 04/10: EXAM DESCRIPTION: RAD - Foot Right 2 View - 04/10/2020 8:35 pm CLINICAL HISTORY: 5th digit only needed COMPARISON: Foot Right 3 View dated 04/10/2020 FINDINGS: The two-view examination of the right fifth toe performed. No gross bone destructive process seen. However, of the medial margin of the fifth distal phalanx does remain more lucent with suspicion for cortical disruption. In the setting of a soft tissue infection, early osteomyelitis of the fifth distal phalanx is suspected. ROS: General: Awake, alert, lying in bed CV: S1, S2 RESP: Good breath sounds throughout lung rizzo ABD: Soft, round, nontender, bowel sounds present Extremities: No edema, 2+ pedal pulses Skin: Right lateral 5th digit with diabetic foot ulcer with granulation tissue. Annabella area with mild erythema, swelling and maceration Assessment and plan: Right 5th digit early osteomyelitis Diabetes Mellitis, A1C 11.8 Diarrhea, will add probiotic No leukocytosis, Afebrile Currently on Cefepime and Vancomycin, will need total of 6 weeks of IV antibiotics Upon discharge can do IV Vancomycin and Levaquin 500mg daily for total of 6 weeks Educated patient on controlling blood sugars to promote healing and wearing proper shoes Will continue to monitor Patient discussed with Dr. Sarabia
[2020-04-14] MEDS: ENOXAPARIN 40 MG/0.4 ML SQ SCH (16:24)
[2020-04-15] MEDS: VANCOMYCIN 2.25 GM in NA CHLORIDE 0.9% 500 ML IVPB SCH ×2 (00:41→15:06)
[2020-04-15 06:54] LABS: Basophils % 0.4 % (0-1.3); Hematocrit 38.1 % (36.0-45.0); Lymphocytes % 25.4 % (15.3-44.8); MPV 11.2 fL (7.6-11.3); RBC Red Blood Cell Count 4.45 M/uL (3.86-4.86)
[2020-04-15 07:28] LABS: BUN Blood Urea Nitrogen 10 mg/dL (7-18); Bicarbonate 23 mmol/L (21-32); Glucose Level 177 mg/dL (74-106); Potassium 3.8 mmol/L (3.5-5.1); Sodium Level 137 mmol/L (136-145)
[2020-04-15 07:29] LABS: Magnesium 1.7 mg/dL (1.8-2.4)
[2020-04-15] MEDS ORDERED: MAGNESIUM SULFATE 1 gm IVPB 1 GM/100 ML BAG IV ONE (07:50)
[2020-04-15] MEDS: INSULIN GLARGINE 100 UNITS/ML SQ SCH (09:04)
[2020-04-15] MEDS: POTASS/SODIUM PHOSPHATE 1 PKT POWD.PACK PO SCH (09:05)
[2020-04-15] MEDS: MAGNESIUM OXIDE 400 MG TAB PO SCH (09:05)
[2020-04-15] MEDS: METFORMIN ER 500 MG TAB PO SCH ×2 (09:05→17:00)
[2020-04-15] MEDS: lisinopriL 20 MG TAB PO SCH (09:05)
[2020-04-15] MEDS: CEFEPIME/SWI 1gm 10 ML IVP SCH (09:05)
[2020-04-15] MEDS: SODIUM HYPOCHLORITE 0.25% 473 ML TOP SCH (09:06)
[2020-04-15] MEDS: COLLAGENASE 30 GM OINTMENT TOP SCH (09:06)
[2020-04-15] MEDS: MUPIROCIN 2% OINT 22GM TUBE TOP SCH (09:06)
[2020-04-15] MEDS: INSULIN -REGULAR HUMAN 50 UNIT/0.5 ML ML SQ SCH ×3 (09:07→16:30)
[2020-04-15] MEDS: NA CHLORIDE 0.9% 1,000 ML IV SCH (09:40)
--- NOTE | 2020-04-15 11:27 | RAD REPORT ---
EXAM DESCRIPTION: RAD - Chest Single View - 04/15/2020 7:31 am CLINICAL HISTORY: PICC LINE PLACEMENT COMPARISON: No comparisons FINDINGS: Portable chest was obtained following placement of a right upper extremity PICC line. The catheter tip projects over the SVC..
--- NOTE | 2020-04-15 13:26 | P.PN ---
Date of Service: 04/15/20 Subjective: Patient is a 39-year-old female who presents with worsening pain to her right foot and erythema on the right 5th toe for the past few days. Patient has past medical history of diabetes. X-ray revealed early osteomyelitis which I have been consulted for. Patient examined at bedside, reports working 12 hr shifts for 14 days at a time. Patient examined at bedside. Denies nausea, shortness or breath and fevers. Reports pain to right 5th digit improving. Discussed with patient the severity of her infection and the need for IV antibiotics and monitoring of liver and kidney function while on antibiotics. Objective: Temp Pulse Resp BP Pulse Ox 97.0 F 94 H 15 135/80 100 04/15/20 12:00 04/15/20 12:00 04/15/20 12:00 04/15/20 12:04/15/20 12:00 Labs: WBC 7.8, Hgb 13.0, Hct 38.1, PLT 176, ESR 23, Na 137, K 3.8, BUN 10, Creat 0.41 Foot Xray 04/10: EXAM DESCRIPTION: RAD - Foot Right 2 View - 04/10/2020 8:35 pm CLINICAL HISTORY: 5th digit only needed COMPARISON: Foot Right 3 View dated 04/10/2020 FINDINGS: The two-view examination of the right fifth toe performed. No gross bone destructive process seen. However, of the medial margin of the fifth distal phalanx does remain more lucent with suspicion for cortical disruption. In the setting of a soft tissue infection, early osteomyelitis of the fifth distal phalanx is suspected. ROS: General: Awake, alert, lying in bed CV: S1, S2 RESP: Good breath sounds throughout lung rizzo ABD: Soft, round, nontender, bowel sounds present Extremities: No edema, 2+ pedal pulses Skin: Right lateral 5th digit with diabetic foot ulcer with dressing CDI Assessment and plan: Right 5th digit early osteomyelitis Diabetes Mellitis, A1C 11.8 No leukocytosis, Afebrile Currently on Cefepime and Vancomycin, will need total of 6 weeks of IV antibiotics Upon discharge can do IV Vancomycin and Levaquin 500mg daily for total of 6 weeks Patient would benefit from LTAC facility for IV antibiotics and hyperbaric treatment Educated patient on controlling blood sugars to promote healing and wearing proper shoes Will continue to monitor Patient discussed with Dr. Sarabia
[2020-04-15] MEDS: ENOXAPARIN 40 MG/0.4 ML SQ SCH (17:00)
[2020-04-15 17:31] VITALS: BP 163/79; TEMP 97.7
--- NOTE | 2020-04-15 20:59 | DS ---
Date of Discharge: 04/15/2020 Consultants: Dr. Anaya with General Surgery. Dr. Sarabia with Infectious Disease. Procedures: None. Admitting Diagnoses: 1. Diabetic foot ulcer. 2. Rule out osteomyelitis. 3. Cellulitis of the right foot. 4. Gout. Discharge Diagnoses: 1. Diabetic foot ulcer. 2. Cellulitis of the right foot. 3. Osteomyelitis, fifth digit. 4. Diabetes mellitus type 2 with hyperglycemia, insulin dependent. 5. Essential hypertension. 6. Obesity, BMI 31. Hospital Course: Patient is a 39-year-old female with past medical history of diabetes, hypertension, comes in with foot pain. Patient was found to have cellulitis, started on IV antibiotics. She was seen by General Surgery. X-rays of the foot showed early osteomyelitis in the fifth distal phalanx. Infectious Disease also consulted. Patient's cultures currently not available at this time. Patient had wound healing done as well. She was then set up with IV antibiotics and to have wound care done at home. She is able to have assistance with family members. She was set up, IV antibiotics and PICC line was placed. She will need 6 weeks of IV antibiotics with cefepime and vancomycin, should be renally dosed. She was to have weekly CBC, CMP, ESR, and CRP. PICC line care and PICC line to be discontinued once antibiotics are completed. She will need tight glycemic control and to continue wound care and to wear proper shoes to avoid worsening of her wounds. Patient [facility] with [facility]. Anaya. Patient overall did well. Her symptoms improved. Erythema and cellulitis also improved. There was no signs of sepsis. Her white blood cell count normalized. Unfortunately, no cultures are available at this time. Patient was then set up with home health with IV antibiotics and was then discharged when completed. Medications: As per medication reconciliation list. Diet: Diabetic diet. Followup: Follow up with primary care physician in 2-3 days. Follow up with Infectious Disease, Dr. Sarabia in 2 weeks. Follow up with general surgeon, Dr. Anaya in 1 [facility]. Return to ER for worsening condition. Medications: As per medication reconciliation list. Physical Examination: General: Awake, alert, oriented x3. Obese female in no acute distress. CV: S1, S2. No murmurs. Respiratory: Moving air well bilaterally. Abdomen: Abdomen is soft, nontender, nondistended. Positive bowel sounds. Extremities: No clubbing, cyanosis, or edema. Skin: Right foot bandaged, improved from previous. Neurologic: Nonfocal. Total time spent discharging patient was 41 minutes. ADDENDUM: Infectious disease doctor had recommended LTAC placement however patient does not wish to go to a facility. Understands the risks versus benefits. She would benefit from facility with tight glycemic control monitoring her labs and wound care however she states that currently her is out of a job and her older kid is watching her younger kids she needs return to work and cannot be in a facility for 6 weeks. She understands that although she will be monitored through home health with labs she is have risks of worsening condition. Patient is awake alert oriented x3 understands her options including the risks versus benefits of home health versus contact and at this time chooses home health. All questions were answered. She will need close followup with general surgeon at the wound healing [facility]. Again patient is refusing LTAC placement. SEBASTIAN Voice ID: [id number] Report ID: [id number]
== END 2020-04-15 17:25 | disposition home health service (06) | DRG 638 ==
LOC: ER 15:19 → ERHOLD 22:09 → 2ND 04-11
PROVIDERS: ADMIT Family Medicine; ATTEND Family Medicine
PROC: 02HV33Z Insertion of Infusion Device into Superior Vena Cava, Percutaneous Approach (ICD-10-PCS; principal; 2020-04-15)
DX: E11.69 Type 2 diabetes mellitus with other specified complication (principal); M86.8X7 Other osteomyelitis, ankle and foot; L03.115 Cellulitis of right lower limb; E11.621 Type 2 diabetes mellitus with foot ulcer; L97.519 Non-pressure chronic ulcer of other part of right foot with unspecified severity; E11.618 Type 2 diabetes mellitus with other diabetic arthropathy; E11.65 Type 2 diabetes mellitus with hyperglycemia; I10 Essential (primary) hypertension; E66.9 Obesity, unspecified; Z68.31 Body mass index [BMI] 31.0-31.9, adult; Z79.899 Other long term (current) drug therapy; Z90.49 Acquired absence of other specified parts of digestive tract; Z90.721 Acquired absence of ovaries, unilateral; Z79.4 Long term (current) use of insulin
CPT/HCPCS: 36415; 36569; 71045; 80048; 80053; 80061; 80202; 81003; 81025; 82550; 82947; 83036; 83605; 83735; 84100; 84145; 84550; 85025; 85610; 85652; 85730; 86140; 90471; 90714; 93005; 96361; 96365; 96366; 96375; 99285; J0692; J1100; J1650; J1815; J2270; J2543; J3475; J3590; J7030; J7040

== ENCOUNTER 2020-06-11 12:02 | Day surgery (SDC) | payer OTHER ==
[2020-06-11] MEDS ORDERED: NA CHLORIDE 0.9% 1,000 ML ONE (12:22)
[2020-06-11] MEDS ORDERED: CEFAZOLIN/SWI 1gm 1 GM/10 ML SYR ONE (12:22)
[2020-06-11 12:27] LABS: Specific Gravity >= 1.030 (1.005-1.030)
[2020-06-11] MEDS ORDERED: BUPIVACA 0.25%/EPI 0.0005%/PF 30 ML VIAL ONE (12:44)
[2020-06-11] MEDS ORDERED: FENTANYL CITR 100 MCG/2 ML ONE (12:52)
[2020-06-11] MEDS ORDERED: MIDAZOLAM HCL 2 MG/2 ML INJ ONE (12:52)
[2020-06-11] MEDS ORDERED: propofoL 200 MG/20 ML VIAL IV ONE (12:52)
[2020-06-11] MEDS ORDERED: LIDOCAINE 1% MPF 5 ML VIAL ONE (12:52)
[2020-06-11] MEDS ORDERED: dexAMETHasone 10 MG/ML VIAL ONE (13:17)
[2020-06-11] MEDS ORDERED: KETOROLAC 30 MG/ML INJ ONE (13:17)
[2020-06-11] MEDS ORDERED: ONDANSETRON 4 MG/2 ML VIAL ONE (13:17)
--- NOTE | 2020-06-11 13:43 | P.OP ---
Preoperative diagnosis: Osteomyelitis of 5th Toe of RIGHT foot Postoperative diagnosis: Osteomyelitis of 5th Toe of RIGHT foot Primary procedure: Amputation of 5th Toe of RIGHT foot Anesthesia: GETA + Local Estimated blood loss: <10cc Specimen: Proximal and Distal Phalanx (5th Toe) Findings: Chronic Osteomyelitis of 5th Toe of RIGHT foot Complications: None Transferred to: Recovery Room Condition: Good
[2020-06-11] MEDS ORDERED: HYDROCODONE/APAP 5/325 MG TAB ONE (15:38)
[2020-06-11 16:13] VITALS: TEMP 97.4
[2020-06-11 16:16] VITALS: BP 114/72; O2SAT 100
--- NOTE | 2020-06-11 22:53 | OP ---
Date of Procedure: 06/11/2020 Surgeon: Rodger Anaya MD, Preoperative Diagnosis: Chronic osteomyelitis of the fifth toe of the right foot. Postoperative Diagnosis: Chronic osteomyelitis of the fifth toe of the right foot. Procedure Performed: Amputation of fifth toe of the right foot. Anesthesia: General endotracheal plus local 0.25% Marcaine with epinephrine. Estimated Blood Loss: Less than 10 cc. Specimen: Proximal and distal phalanx, fifth toe of the right foot. Findings: Chronic osteomyelitis of the fifth toe of the right foot. Complications: None. Disposition: Transferred to recovery room in good condition. Procedure In Detail: After informed consent was obtained, the patient was brought to the operating r oom, prepped and draped in the usual sterile fashion after adequate anesthesia was achieved. I marke d an area of skin flap for the fifth toe of the right foot with a vascularized segment of tissue circ umferentially. I used a 15 blade down to dissect down to the subcutaneous tissues. Electrocautery w as used to dissect down through subcutaneous fat and to expose the tendinous portions of the distal a nd proximal phalanx. These were removed using a combination of electrocautery as well as periosteal elevators to remove all ligamentous attachments from the bone down to the metatarsophalangeal joint. This was circumferentially dissected free and the periosteum was pushed back onto the metatarsal hea d and the phalanx was removed at this time along with skin in distal aspect. The area was copiously irrigated multiple times and dried until completely clear. I removed some excess debridement tissues and all vascularized tissues left behind. I closed the deep layers using an interrupted 3-0 Vicryl suture in interrupted fashion. Good approximation of tissues. I then closed the skin flap over the top using interrupted 3-0 nylon suture in interrupted fashion. Good approximation of tissues. A regis rile dressing was placed over the top. The patient tolerated the procedure well without evidence of complication, transferred in good condition. All counts were correct at the end of the case. TK/MODL Voice ID: [id number] Report ID: [id number]
== END 2020-06-11 15:50 | disposition home or self-care (01) ==
LOC: OR 12:02
PROVIDERS: ATTEND Surgery
PROC: 0Y6X0Z0 Detachment at Right 5th Toe, Complete, Open Approach (ICD-10-PCS; principal; 2020-06-11 13:00)
DX: M86.671 Other chronic osteomyelitis, right ankle and foot (principal); Z11.59 Encounter for screening for other viral diseases; E11.9 Type 2 diabetes mellitus without complications; I10 Essential (primary) hypertension
CPT/HCPCS: 81025; 82947 ×2; 88305; 88311; 28820; U0002; J2704; J2250; J3010; J1100; J0690; J7030; J2405

== ENCOUNTER 2020-06-29 05:41 | Inpatient (IN) | payer OTHER, SELFPAY ==
[2020-06-29] MEDS ORDERED: NA CHLORIDE 0.9% 2,000 ML ONE (06:35)
[2020-06-29] MEDS ORDERED: ALBUTEROL INHALER 60 PUFF/8 GM IH ONE (06:39)
[2020-06-29] MEDS ORDERED: METHYLPREDNISOLONE 125 MG INJ ONE (06:39)
[2020-06-29 07:13] LABS: ALT/SGPT 20 U/L (12-78); AST/SGOT 14 U/L (15-37); Absolute Lymphocytes (CBC) 1.1 K/uL (0.7-4.9); Albumin 2.4 g/dL (3.4-5.0); Alkaline Phosphatase 104 U/L (45-117); Amylase 37 U/L (25-115); BUN Blood Urea Nitrogen 11 mg/dL (7-18); Basophils % 0.4 % (0-1.3); Bicarbonate 29 mmol/L (21-32); Bilirubin Direct 0.2 mg/dL (0-0.2); Bilirubin Total 0.6 mg/dL (0.2-1.0); CKMB Creatine Kinase MB < 1.0 ng/mL (0.3-3.6); Creatine Phosphokinase 31 U/L (26-192); Glucose Level 336 mg/dL (74-106); Hematocrit 36.9 % (36.0-45.0); Lipase 157 U/L (73-393); Lymphocytes % 9.4 % (15.3-44.8); MPV 9.3 fL (7.6-11.3); Potassium 3.3 mmol/L (3.5-5.1); Protein, Total 8.2 g/dL (6.4-8.2); RBC Red Blood Cell Count 4.37 M/uL (3.86-4.86); Sodium Level 132 mmol/L (136-145); Troponin (Emerg Dept Use Only) < 0.02 ng/mL (0.0-0.045)
[2020-06-29 07:26] LABS: Protime INR 1.2
[2020-06-29 07:30] LABS: Ferritin 735.7 ng/mL (8-388)
[2020-06-29] MEDS ORDERED: CEFTRIAXONE/SWI 1gm 1 GM/10 ML SYR ONE (07:31)
[2020-06-29] MEDS ORDERED: NA CHLORIDE 0.9% 1,000 ML ONE ×2 (07:32→08:39)
[2020-06-29] MEDS ORDERED: AZITHROMYCIN IV 500 MG in NA CHLORIDE 0.9% 250 ML IVPB ONE (07:45)
--- NOTE | 2020-06-29 08:06 | EDPHYS ---
Physician Documentation [facility] Name: Glenna Finney Age: 39 yrs Sex: Female : 1980 Arrival Date: 06/29/2020 Time: 05:54 Bed 8 Private MD: ED Physician Donnie Alexandra HPI: 06/29 06:35 This 39 yrs old Female presents to ER via Wheelchair with complaints of pm1 COVID+, Chest Pain, Breathing Difficulty. 06:35 The patient has shortness of breath at rest. Onset: The symptoms/episode began/occurred pm1 last week. Duration: The symptoms are continuous. Associated signs and symptoms: Pertinent positives: chest pain, non-productive cough, fever, Body aches, posttussive vomting, Pertinent negatives: nausea, diarrhea, abdominal pain. Severity of symptoms: in the emergency department the symptoms are worse. Patient with amputation of left 5th toe due to osteomyelitis on 06/11. Patient with onset of fever last week with body aches and dry cough. Tested positive for COVID on 06/25. 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 - Social history:: Smoking status: Patient denies any tobacco usage or history of. ROS: 06:35 Eyes: Negative for injury, pain, redness, and discharge, ENT: Negative for injury, pm1 pain, and discharge, Neck: Negative for injury, pain, and swelling. 06:35 Back: Negative for injury and pain, MS/Extremity: Negative for injury and deformity, Skin: Negative for injury, rash, and discoloration, Neuro: Negative for headache, weakness, numbness, tingling, and seizure. 06:35 Constitutional: Positive for body aches, fever. 06:35 Cardiovascular: Positive for chest pain, Negative for edema, orthopnea. 06:35 Respiratory: Positive for cough, with no reported sputum, shortness of breath. 06:35 Abdomen/GI: Positive for posttussive voimting, Negative for abdominal pain, nausea, diarrhea, constipation. Exam: 06:45 Constitutional: This is a well developed, well nourished patient who is awake, alert, pm1 and in no acute distress. 06:45 Head/Face: Normocephalic, atraumatic. Eyes: Pupils equal round and reactive to light, extra-ocular motions intact. Lids and lashes normal. Conjunctiva and sclera are non-icteric and not injected. Cornea within normal limits. Periorbital areas with no swelling, redness, or edema. 06:45 Neck: Trachea midline, no thyromegaly or masses palpated, and no cervical lymphadenopathy. Supple, full range of motion without nuchal rigidity, or vertebral point tenderness. No Meningismus. Chest/axilla: Normal chest wall appearance and motion. Nontender with no deformity. No lesions are appreciated. 06:45 ENT: External ear(s): are unremarkable, Ear canal(s): are normal, TM's: are normal, Nose: is normal, Posterior pharynx: Airway: normal, no evidence of obstruction, Tonsils: are normal in appearance, no enlargement, no erythema, no exudate, no ulcerations, erythema, that is mild, peritonsillar mass, is not appreciated. 06:45 Cardiovascular: Rate: tachycardic, Rhythm: regular, Pulses: no pulse deficits are appreciated, Heart sounds: normal, normal S1and S2, Edema: is not appreciated. 06:45 Respiratory: mild respiratory distress is noted, patient on NRB prior to my arrival, Respirations: Breath sounds: decreased breath sounds, are located in both bases, Respiratory rate: 26 06:45 Back: No spinal tenderness. No costovertebral tenderness. Full range of motion. pm1 Skin: Warm, dry with normal turgor. Normal color with no rashes, no lesions, and no evidence of cellulitis. MS/ Extremity: Pulses equal, no cyanosis. Neurovascular intact. Full, normal range of motion. 06:45 Abdomen/GI: Inspection: abdomen appears normal, Palpation: abdomen is soft and non-tender, in all quadrants, mass, is not appreciated. 06:45 Neuro: Exam negative for acute changes, Orientation: is normal, Mentation: is normal, Motor: is normal, moves all fours. Vital Signs: 06:12 BP 134 / 81; Pulse 130; Resp 30; Temp 98.3(O); Pulse Ox 60% on R/A; Weight 92.99 kg lp1 (R); Height 5 ft. 8 in. (172.72 cm); 06:17 Pulse Ox 90% on 15% Non-rebreather mask; lp1 06:46 BP 150 / 92; Pulse 126; Resp 26; Pulse Ox 93% on Non-rebreather mask; mg2 07:48 BP 153 / 106; Pulse 117; Resp 26; Temp 98.0(TE); Pulse Ox 94% on 15% Non-rebreather jr10 mask; Pain 5/10; 08:45 BP 167 / 98; Pulse 111; Resp 24; Pulse Ox 98% on 15% Non-rebreather mask; jr10 09:45 BP 157 / 79; Pulse 107; Resp 24; Pulse Ox 97% on 15% Non-rebreather mask; jr10 11:23 BP 156 / 86; Pulse 105; Resp 25; Pulse Ox 98% on 15% Non-rebreather mask; jr10 06:12 Body Mass Index 31.17 (92.99 kg, 172.72 cm) lp1 07:48 trialed patient down to 10L via NRB, pt noted to desat to 88%. No increased WOB noted. jr10 Pt increased back to 15L sats noted to increase back up to 93%. Provider notified and aware. Will be unable to wean off of NRB at this time. Will continue to monitor and assess and wean as appropriate MDM: 05:[address] [facility] 07:38 Data reviewed: vital signs. pm1 07:59 Counseling: I had a detailed discussion with the patient and/or guardian regarding: the pm1 historical points, exam findings, and any diagnostic results supporting the discharge/admit diagnosis, lab results, radiology results, the need for further work-up and treatment in the hospital. 08:18 Physician consultation: Alex Mckay MD was contacted at 08:18, regarding admission, pm1 consult, patient's condition, and will see patient would like further tests performed, CT scan. 06/29 06:21 Order name: Amylase, Serum mg2 06/29 06:21 Order name: Basic Metabolic Panel mg2 06/29 06:21 Order name: Blood Culture Adult (2) mg2 06/29 06:21 Order name: CBC with Diff mg2 06/29 06:21 Order name: Ckmb mg2 06/29 06:21 Order name: CPK mg2 06/29 06:21 Order name: Lactate mg2 06/29 06:21 Order name: LFT's mg2 06/29 06:21 Order name: Lipase mg2 06/29 06:21 Order name: Procalcitonin mg2 06/29 06:21 Order name: Protime (+inr) mg2 06/29 06:21 Order name: Ptt, Activated mg2 06/29 06:21 Order name: Troponin (emerg Dept Use Only) mg2 06/29 06:21 Order name: Urine Microscopic Only mg2 06/29 06:25 Order name: C-Reactive Protein pm1 06/29 06:25 Order name: Ferritin pm1 06/29 06:25 Order name: Flu pm1 06/29 06:25 Order name: Strep pm1 06/29 06:59 Order name: Glucose, Ancillary Testing; Complete Time: 07:05 EDMS 06/29 07:06 Order name: Group A Streptococcus Rapid Sc; Complete Time: 07:08 EDMS 06/29 07:13 Order name: Basic Metabolic Panel; Complete Time: 07:14 EDMS 06/29 07:13 Order name: Liver (Hepatic) Function; Complete Time: 07:14 EDMS 06/29 07:13 Order name: Creatine Phosphokinase; Complete Time: 07:14 EDMS 06/29 07:13 Order name: CKMB Creatine Kinase MB; Complete Time: 07:14 EDMS 06/29 07:13 Order name: Troponin (Emerg Dept Use Only); Complete Time: 07:14 EDMS 06/29 07:13 Order name: Amylase; Complete Time: 07:14 EDMS 06/29 07:13 Order name: Lipase; Complete Time: 07:14 EDMS 06/29 07:13 Order name: Lactate; Complete Time: 07:14 EDMS 06/29 07:14 Order name: CBC with Automated Diff EDMS 06/29 07:21 Order name: Influenza Screen (A ; Complete Time: 07:28 EDMS 06/29 06:21 Order name: Chest Single View XRAY mg2 06/29 06:21 Order name: Accucheck; Complete Time: 06:43 mg2 06/29 06:21 Order name: Cardiac monitoring; Complete Time: 06:43 mg2 06/29 06:21 Order name: EKG - Nurse/Tech; Complete Time: 06:43 mg2 06/29 06:21 Order name: IV Saline Lock - Large Bore; Complete Time: 06:43 mg2 06/29 06:21 Order name: Labs collected and sent; Complete Time: 06:43 mg2 06/29 06:21 Order name: O2 Per Protocol; Complete Time: 06:43 mg2 06/29 06:21 Order name: O2 Sat Monitoring; Complete Time: 06:43 mg2 06/29 06:21 Order name: Urine Dipstick-Ancillary (obtain specimen); Complete Time: 10:12 mg2 06/29 06:25 Order name: Droplet/Contact Precautions; Complete Time: 06:42 pm1 06/29 07:28 Order name: Protime (+INR); Complete Time: 07:32 EDMS 06/29 07:28 Order name: PTT, Activated Partial Thromb; Complete Time: 07:32 EDMS 06/29 07:30 Order name: C-Reactive Protein; Complete Time: 07:32 EDMS 06/29 07:30 Order name: Ferritin; Complete Time: 07:32 EDMS 06/29 08:05 Order name: Procalcitonin; Complete Time: 10:00 EDMS 06/29 08:17 Order name: CT Chest For PE Angio pm1 08 10:30 Order name: Urine Dipstick--Ancillary (enter results) mt Administered Medications: 06:42 Drug: Albuterol HFA Inhaler 2 puffs Route: Inhalation; mg2 07:20 Follow up: Response: No adverse reaction jr10 06:42 Drug: SOLU-Medrol 125 mg Route: IVP; Site: right forearm; mg2 07:20 Follow up: Response: No adverse reaction jr10 06:43 Not Given (Physician Discretion): NS 0.9% (30 ml/kg) 30 ml/kg IV at bolus once; Sepsis mg2 Protocol 07:40 Drug: Rocephin 1 grams Route: IV; Rate: calculated rate; Site: right antecubital; jr10 08:16 Follow up: Response: No adverse reaction; IV Status: Completed infusion jr10 08:02 Drug: NS 0.9% (30 ml/kg) 30 ml/kg {Note: 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 plan of care. Disposition: 06/29/20 08:05 Hospitalization ordered by Alex Mckay for Inpatient Admission. Preliminary diagnosis are Pneumonia, unspecified organism, Coronavirus infection, unspecified, Streptococcal pharyngitis, Hypoxemia. - Bed requested for Intensive Care Unit. - Status is Inpatient Admission. jr10 - Condition is Fair. - Problem is new. - Symptoms have improved. Signatures: Dispatcher [employer] EDDonnie Damon MD MD cha Smirch, Shelby RN RN Alisa Yi RN RN lp1 Tapan Camacho, CLEO BIZTALK ADMINISTRATOR pm1 Da Berry RN RN [facility] [place] Mee Ortiz RN RN jr10 Corrections: (The following items were deleted from the chart) 06/29 08:18 08:05 Hospitalization Ordered by Evangelista Bates DO for Inpatient Admission. Preliminary pm1 diagnosis is Coronavirus infection, unspecified; Streptococcal pharyngitis; Hypoxemia. Bed requested for Telemetry/MedSurg (Inpatient). Status is Inpatient Admission. Condition is Fair. Problem is new. Symptoms have improved. pm1 09:02 08:18 06/29/2020 08:05 Hospitalization Ordered by Alex Mckay MD for Inpatient pm1 Admission. Preliminary diagnosis is Coronavirus infection, unspecified; Streptococcal pharyngitis; Hypoxemia. Bed requested for Intensive Care Unit. Status is Inpatient Admission. Condition is Fair. Problem is new. Symptoms have improved. pm1 11:10 09:02 06/29/2020 08:05 Hospitalization Ordered by Alex Mckay MD for Inpatient ss Admission. Preliminary diagnosis is Pneumonia, unspecified organismCoronavirus infection, unspecified; Streptococcal pharyngitis; Hypoxemia. Bed requested for Intensive Care Unit. Status is Inpatient Admission. Condition is Fair. Problem is new. Symptoms have improved. pm1 11:53 11:10 06/29/2020 08:05 Hospitalization Ordered by Alex Mckay MD for Inpatient jr10 Admission. Preliminary diagnosis is Pneumonia, unspecified organismCoronavirus infection, unspecified; Streptococcal pharyngitis; Hypoxemia. Bed requested for Intensive Care Unit. Status is Inpatient Admission. Condition is Fair. Problem is new. Symptoms have improved. ss
--- NOTE | 2020-06-29 08:06 | ER ---
Nurse's Notes [facility] Name: Glenna Finney Age: 39 yrs Sex: Female : 1980 Arrival Date: 06/29/2020 Time: 05:54 Bed 8 Private MD: Diagnosis: Coronavirus infection, unspecified;Streptococcal pharyngitis;Hypoxemia;Pneumonia, unspecified organism Presentation: 06/29 06:12 Chief complaint: Patient states: shortness of breath, fever last week, tested COVID lp1 positive on 06/25/20; shortness of breath has worsened since, complaint of chest pain; states recent surgery of amputation of right 5th toe. Coronavirus screen: Client reports previous positive COVID test result. Date of collection: June 25, 2020. Ebola Screen: No symptoms or risks identified at this time. Initial Sepsis Screen: Does the patient meet any 2 criteria? RR > 20 per min. HR > 90 bpm. Yes Does the patient have a suspected source of infection? Yes: Productive cough/pneumonia. Risk Assessment: Do you want to hurt yourself or someone else? Patient reports no desire to harm self or others. Onset of symptoms was June 29, 2020. 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 - Social history:: Smoking status: Patient denies any tobacco usage or history of. Screenin:16 Abuse screen: Denies threats or abuse. Denies injuries from another. Nutritional lp1 screening: No deficits noted. Tuberculosis screening: No symptoms or risk factors identified. 07:20 Fall Risk No fall in past 12 months (0 pts). No secondary diagnosis (0 pts). IV access jr10 (20 points). Ambulatory Aid- None/Bed Rest/Nurse Assist (0 pts). Gait- Normal/Bed Rest/Wheelchair (0 pts) Mental Status- Oriented to own ability (0 pts). Assessment: 06:43 General: Appears in no apparent distress. comfortable, Behavior is calm, cooperative. mg2 Pain: Complains of pain in chest Pain does not radiate. Neuro: Level of Consciousness is awake, alert, obeys commands, Oriented to person, place, time, situation. Cardiovascular: Capillary refill < 3 seconds Patient's skin is warm and dry. Respiratory: Reports shortness of breath at rest cough that is dry, Airway is patent Respiratory effort is even, unlabored, Respiratory pattern is regular, symmetrical. GI: Reports vomiting. : No signs and/or symptoms were reported regarding the genitourinary system. EENT: No signs and/or symptoms were reported regarding the EENT system. Derm: Skin is intact, is healthy with good turgor, Skin is pink, warm \T\ dry. normal. Musculoskeletal: Circulation, motion, and sensation intact. Capillary refill < 3 seconds. Vital Signs: 06:12 BP 134 / 81; Pulse 130; Resp 30; Temp 98.3(O); Pulse Ox 60% on R/A; Weight 92.99 kg lp1 (R); Height 5 ft. 8 in. (172.72 cm); 06:17 Pulse Ox 90% on 15% Non-rebreather mask; lp1 06:46 BP 150 / 92; Pulse 126; Resp 26; Pulse Ox 93% on Non-rebreather mask; mg2 07:48 BP 153 / 106; Pulse 117; Resp 26; Temp 98.0(TE); Pulse Ox 94% on 15% Non-rebreather jr10 mask; Pain 5/10; 08:45 BP 167 / 98; Pulse 111; Resp 24; Pulse Ox 98% on 15% Non-rebreather mask; jr10 09:45 BP 157 / 79; Pulse 107; Resp 24; Pulse Ox 97% on 15% Non-rebreather mask; jr10 11:23 BP 156 / 86; Pulse 105; Resp 25; Pulse Ox 98% on 15% Non-rebreather mask; jr10 06:12 Body Mass Index 31.17 (92.99 kg, 172.72 cm) lp1 07:48 trialed patient down to 10L via NRB, pt noted to desat to 88%. No increased WOB noted. jr10 Pt increased back to 15L sats noted to increase back up to 93%. Provider notified and aware. Will be unable to wean off of NRB at this time. Will continue to monitor and assess and wean as appropriate ED Course: 05:54 Patient arrived in ED. fj1 05:57 Donnie Alexandra MD is Attending Physician. brigida 06:07 Da Berry, RN is Primary Nurse. mg2 06:11 Tapan Camacho NP is PHCP. pm1 06:15 Triage completed. lp1 06:15 Arm band placed on. lp1 06:17 Patient has correct armband on for positive identification. Placed in gown. Bed in low lp1 position. Call light in reach. prosthetic assistant on. Pulse ox on. NIBP on. 06:18 Oxygen administration via non-rebreather mask \T\ 15L/min. lp1 06:46 No provider procedures requiring assistance completed. Inserted saline lock: 20 gauge mg2 in right forearm, using aseptic technique. Blood collected. 08:00 Evangelista Bates DO is Hospitalizing Provider. pm1 08:01 Primary Nurse role handed off by Da Berry RN jr10 08:01 Mee Ortiz, TAMARA is Primary Nurse. jr10 08:18 Hospitalizing Provider role handed off by Evangelista Bates DO pm1 08:18 Alex Mckay MD is Hospitalizing Provider. pm1 11:25 Patient admitted, IV remains in place. intact, No redness/swelling at site. 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 pm1 11:25 Admitted to ICU accompanied by nurse, accompanied by tech, via stretcher, room 2, with jr10 oxygen, on monitor, with chart, Report called to TAMARA Sales 11:25 Condition: improved 11:25 Instructed on the need for admit, Demonstrated understanding of instructions. 11:53 Patient left the ED. jr10 Signatures: Donnie Alexandra MD MD cha Pena, Laura, RN RN lp1 Tapan Camacho, CAPITAL PROJECT ENGINEER CAPITAL PROJECT ENGINEER pm1 Da Berry RN RN mg2 Jeffry Lovett 1 Mee Ortiz, TAMARA RN jr10 Corrections: (The following items were deleted from the chart) 06:30 06:12 BP 134 / 81; Pulse 130bpm; Resp 30bpm; Pulse Ox 60% RA; 92.99 kg Reported; Height lp1 5 ft. 8 in.; BMI: 31.1; lp1
--- NOTE | 2020-06-29 11:34 | RAD REPORT ---
EXAM DESCRIPTION: RAD - Chest Single View - 06/29/2020 6:54 am CLINICAL HISTORY: DYSPNEA Chest pain. COMPARISON: Chest Single View dated 04/15/2020 FINDINGS: Portable technique limits examination quality. Moderately severe bilateral pulmonary opacities are present likely representing pneumonia. The heart is normal in size. No displaced fractures.
--- NOTE | 2020-06-29 11:40 | RAD REPORT ---
EXAM DESCRIPTION: CT - Chest For Pe Angio - 06/29/2020 10:46 am CLINICAL HISTORY: Chest pain. SOB;Chest pain COMPARISON: No comparisons TECHNIQUE: CT angiogram of the pulmonary arteries was performed with MIP. All CT scans are performed using dose optimization technique as appropriate and may include automated exposure control or mA/KV adjustment according to patient size. FINDINGS: No evidence of pulmonary thromboembolism. No acute aortic finding demonstrated. Extensive areas of alveolar lung opacity present bilaterally, likely representing pneumonia. No significant pericardial or pleural fluid. No concerning bony finding. Cholecystectomy clips. IMPRESSION: No evidence of pulmonary thromboembolism. Extensive bilateral alveolar lung opacities are present most likely representing bilateral pneumonia.
[2020-06-29] MEDS ORDERED: ONDANSETRON 4 MG/2 ML VIAL IV PRN (12:54)
[2020-06-29] MEDS ORDERED: ACETAMINOPHEN 500 MG TAB PO SCH ×2 (13:00→17:00)
[2020-06-29] MEDS ORDERED: NA CHLORIDE 0.9% 1,000 ML IV SCH (13:00)
[2020-06-29] MEDS ORDERED: INSULIN -REGULAR HUMAN 50 UNIT/0.5 ML ML ONE (13:09)
[2020-06-29] MEDS ORDERED: ALBUTEROL INHALER 60 PUFF/8 GM IH PRN (13:12)
[2020-06-29 13:25] LABS: Blood Morphology Comment NOT SEEN (NOT SEEN); Platelet Estimate ADEQ
[2020-06-29] MEDS ORDERED: GLUCAGON 1 MG/VIAL IM PRN ×2 (14:32→18:14)
[2020-06-29] MEDS ORDERED: D50W 25 GM/50 ML SYRINGE/VIAL IV PRN ×2 (14:32→18:14)
[2020-06-29] MEDS ORDERED: POTASSIUM CL SA 10 MEQ TAB PO ONE ×2 (15:36→22:51)
[2020-06-29] MEDS: ASCORBIC ACID 500 MG TABLET PO SCH ×2 (17:10→21:00)
[2020-06-29] MEDS: INSULIN -REGULAR HUMAN 50 UNIT/0.5 ML ML SQ SCH ×2 (17:11→20:30)
[2020-06-29] MEDS ORDERED: FUROSEMIDE 20 MG/ 2ML VIAL IV ONE (17:25)
[2020-06-29] MEDS: METHYLPREDNISOLONE 125 MG INJ IV SCH ×2 (18:22→23:43)
[2020-06-29] MEDS ORDERED: LORazepam 2 MG/ML VIAL IV PRN (19:59)
[2020-06-29] MEDS: METOPROLOL TARTRATE 5 MG/5 ML INJ IV SCH (20:28)
[2020-06-29] MEDS: ZINC SULFATE 220 MG CAP PO SCH (20:29)
[2020-06-29] MEDS: ENOXAPARIN 100 MG/ML SYR SQ SCH (20:29)
[2020-06-29] MEDS: GLIPIZIDE S.A. 5 MG TAB PO SCH (20:30)
[2020-06-29] MEDS ORDERED: ENOXAPARIN 40 MG/0.4 ML SQ SCH (21:00)
[2020-06-29] MEDS: INSULIN 70/30 100 UNITS/ML SQ SCH (21:23)
[2020-06-29 22:02] LABS: Urine Bacteria <20 /HPF (<20); Urine RBC <5 /HPF (NONE SEEN)
[2020-06-29 22:03] LABS: Urine Culture Reflex Order NOT NEEDED; Urine Yeast PRESENT (NONE SEEN)
[2020-06-29] MEDS: ACETAMINOPHEN 500 MG TAB PO SCH (22:26)
[2020-06-29 22:33] LABS: Magnesium 1.7 mg/dL (1.8-2.4); Phosphorus 1.5 mg/dL (2.5-4.9); Potassium 3.4 mmol/L (3.5-5.1)
[2020-06-29] MEDS ORDERED: MAGNESIUM SULFATE 1 gm IVPB 1 GM/100 ML BAG IV ONE (22:49)
[2020-06-29] MEDS: POTASS/SODIUM PHOSPHATE 1 PKT POWD.PACK PO SCH ×2 (22:57→23:44)
[2020-06-30] MEDS: POTASS/SODIUM PHOSPHATE 1 PKT POWD.PACK PO SCH (00:35)
[2020-06-30] MEDS: METOPROLOL TARTRATE 5 MG/5 ML INJ IV SCH ×4 (02:07→21:03)
[2020-06-30 05:11] LABS: Basophils % 0.4 % (0-1.3); Hematocrit 32.6 % (36.0-45.0); Lymphocytes % 8.9 % (15.3-44.8); MPV 9.1 fL (7.6-11.3); RBC Red Blood Cell Count 3.89 M/uL (3.86-4.86)
[2020-06-30] MEDS: METHYLPREDNISOLONE 125 MG INJ IV SCH ×4 (05:28→23:34)
[2020-06-30] MEDS: ACETAMINOPHEN 500 MG TAB PO SCH ×2 (05:29→10:55)
[2020-06-30 05:37] LABS: ALT/SGPT 13 U/L (12-78); AST/SGOT 16 U/L (15-37); Albumin 2.2 g/dL (3.4-5.0); Alkaline Phosphatase 92 U/L (45-117); BUN Blood Urea Nitrogen 22 mg/dL (7-18); Bicarbonate 27 mmol/L (21-32); Bilirubin Total 0.3 mg/dL (0.2-1.0); Ferritin 732.5 ng/mL (8-388); Glucose Level 320 mg/dL (74-106); NT PRO-BNP 840 pg/mL (<125); Phosphorus 2.6 mg/dL (2.5-4.9); Potassium 3.3 mmol/L (3.5-5.1); Protein, Total 7.4 g/dL (6.4-8.2); Sodium Level 140 mmol/L (136-145); Thyroid Stimulating Hormone 0.029 uIU/mL (0.360-3.740); Troponin I < 0.02 ng/mL (0.0-0.045)
[2020-06-30] MEDS ORDERED: FUROSEMIDE 20 MG/ 2ML VIAL IV ONE ×2 (06:00→17:01)
[2020-06-30] MEDS: ASCORBIC ACID 500 MG TABLET PO SCH ×3 (07:17→21:04)
[2020-06-30] MEDS: GLIPIZIDE S.A. 5 MG TAB PO SCH ×2 (07:18→21:05)
[2020-06-30] MEDS: ENOXAPARIN 100 MG/ML SYR SQ SCH ×2 (07:18→21:04)
[2020-06-30] MEDS: ZINC SULFATE 220 MG CAP PO SCH ×2 (07:18→21:04)
--- NOTE | 2020-06-30 07:22 | EKG ---
Test Date: 2020-06-29 Test Time: 06:20:21 Speech Therapist: JUAN MEASUREMENT RESULTS: Intervals: Rate: 128 WY: QRSD: 74 QT: 318 QTc: 464 [place]: P: 47 WY: QRS: 40 T: 23 INTERPRETIVE STATEMENTS: sinus rhythmPosterior infarct, age undetermined Abnormal ECG Compared to ECG 04/10/2020 21:35:35 Myocardial infarct finding now present Sinus rhythm no longer present Electronically Signed On 06-30-20 07:22:18 CDT by Leo Magana
[2020-06-30] MEDS: INSULIN -REGULAR HUMAN 50 UNIT/0.5 ML ML SQ SCH ×4 (07:51→21:40)
[2020-06-30] MEDS: INSULIN 70/30 100 UNITS/ML SQ SCH ×2 (07:51→16:04)
[2020-06-30] MEDS ORDERED: POTASSIUM CL SA 10 MEQ TAB PO ONE ×2 (08:00→16:09)
[2020-06-30] MEDS ORDERED: METHYLPREDNISOLONE 125 MG INJ IV ONE (08:27)
--- NOTE | 2020-06-30 08:29 | P.CNS ---
Date of Consult: 06/30/20 Reason for Consult: Pérez virus pneumonia Chief Complaint: Shortness of breath History of Present Illness: Patient is 39 years of age lady admitted with chest pain shortness of breath admitted with pérez virus pneumonia patient is still short of breath requiring high concentrations of oxygen 3 Allergies No Known Drug Allergies Allergy (Verified 06/08/20 10:51) Unknown Home Medications: Glipizide [Glipizide ER] 10 mg PO BID 05/28/19 Metformin HCl [Metformin ER Osmotic] 1,000 mg PO BID 05/28/19 lisinopriL [Lisinopril] 1 tab PO DAILY 04/10/20 - Past Medical/Surgical History Diabetic: Yes -: HTN -: NIDDM -: c-sec x 4 -: hernia repair -: gall bladder removed -: left ovary removed -: bilateral fallopian tubes removed - Family History Mother Medical History: Hypertension, Diabetes, Other (see notes) Notes: CHF Father Medical History: Hypertension, Other (see notes) Notes: CHF - Social History Smoking Status: Unknown if ever smoked Alcohol use: Yes CD- Drugs: No Caffeine use: Yes Place of Residence: Home Review of Systems General: Fever, Weakness Respiratory: Shortness of Breath Physical Examination Temp Pulse Resp BP Pulse Ox 97.5 F 99 H 17 147/90 H 90 L 06/30/20 04:00 06/30/20 08:00 06/30/20 08:00 06/30/20 08:00 06/30/20 08:00 Laboratory Data (last 24 hrs) 06/29/20 06:30: WBC 11.5 H, Hgb 12.9, Hct 36.9, Plt Count 369 - Problems (1) Pneumonia due to human coronavirus Current Visit: Yes Status: Acute Plan: Patient is 39 years of age admitted with pneumonia due to coronal virus continue with present therapy/she does not improve by tomorrow will consider treatment with convalescent plasma and redesmir Dc antibiotics additional supplements ordered including a vitamin D level initial dose of Solu-Medrol given diagnostic data reviewed still requiring high concentrations of oxygen
[2020-06-30] MEDS ORDERED: ASCORBIC ACID 500 MG TABLET PO SCH (09:00)
[2020-06-30] MEDS ORDERED: AZITHROMYCIN IV 500 MG in NA CHLORIDE 0.9% 250 ML IVPB SCH (09:00)
[2020-06-30] MEDS ORDERED: ZINC GLUCONATE 50 MG TAB PO SCH (09:00)
[2020-06-30] MEDS: VITAMIN D 1000 UNIT TAB PO SCH (09:01)
[2020-06-30 10:54] LABS: Urine Blood NEGATIVE (NEG); Urine Glucose 2+ (NEG); Urine Protein TRACE (NEG)
[2020-06-30] MEDS: BENZONATATE 100 MG CAP PO PRN (11:44)
[2020-06-30] MEDS: KCL 20 MEQ/100 mL IVPB 20 MEQ/100 ML BAG IV SCH ×3 (17:37→22:00)
[2020-06-30] MEDS ORDERED: POTASSIUM CL 40 MEQ in NA CHLORIDE 0.9% 500 ML IV SCH (18:00)
[2020-06-30] MEDS: MELATONIN 3 MG TABLET PO SCH (21:04)
[2020-06-30] MEDS: ATORVASTATIN 40 MG TAB PO SCH (21:04)
[2020-06-30] MEDS: ACETAMINOPHEN 325 MG TABLET PO PRN (21:11)
[2020-06-30] MEDS ORDERED: NA CHLORIDE 0.9% 100 ML ONE (21:12)
[2020-07-01] MEDS: KCL 20 MEQ/100 mL IVPB 20 MEQ/100 ML BAG IV SCH
[2020-07-01] MEDS: METOPROLOL TARTRATE 5 MG/5 ML INJ IV SCH ×4 (02:40→20:41)
[2020-07-01 04:31] LABS: Potassium 3.9 mmol/L (3.5-5.1)
[2020-07-01] MEDS ORDERED: POTASSIUM CL SA 10 MEQ TAB PO ONE (05:18)
[2020-07-01] MEDS: METHYLPREDNISOLONE 125 MG INJ IV SCH ×4 (05:21→23:53)
[2020-07-01 07:25] LABS: C-Reactive Protein 62.1 mg/L (<3.00)
[2020-07-01] MEDS ORDERED: METHYLPREDNISOLONE 125 MG INJ IV ONE (07:37)
[2020-07-01] MEDS: FUROSEMIDE 20 MG/ 2ML VIAL IV SCH (08:08)
[2020-07-01] MEDS: ZINC SULFATE 220 MG CAP PO SCH ×2 (08:09→20:40)
[2020-07-01] MEDS: INSULIN -REGULAR HUMAN 50 UNIT/0.5 ML ML SQ SCH ×5 (08:09→23:52)
[2020-07-01] MEDS: INSULIN 70/30 100 UNITS/ML SQ SCH ×2 (08:09→16:34)
[2020-07-01] MEDS: ASCORBIC ACID 500 MG TABLET PO SCH ×3 (08:09→20:40)
[2020-07-01] MEDS: GLIPIZIDE S.A. 5 MG TAB PO SCH ×2 (08:10→20:39)
[2020-07-01] MEDS: SPIRONOLACTONE 25 MG TABLET PO SCH (08:10)
[2020-07-01] MEDS: VITAMIN D 1000 UNIT TAB PO SCH (08:10)
[2020-07-01] MEDS: ENOXAPARIN 100 MG/ML SYR SQ SCH ×2 (08:11→20:42)
--- NOTE | 2020-07-01 08:28 | P.PN ---
Subjective Date of Service: 06/30/20 PATIENT REMAINS HYPOXIC. PATIENT REQUIRING HIGH-FLOW OXYGEN AT THIS TIME. FLOW RATE OF AT 40 LITERS/MINUTE AND FIO2 IS AT 75%. PATIENT IS STILL DYSPNEIC AND HER OXYGEN SATURATIONS ARE 87-89%. HAVE ENCOURAGED HER TO START MAKING HERSELF PRONE WHILE SHE IS IN BED. PERMISSIVE HYPOXEMIA AT THIS TIME WELL. SPOKE WITH NURSE ABOUT HAVING PULMONARY CONSIDERING REMDESIVIR Review of Systems 10-point ROS is otherwise unremarkable Physical Examination - Vital Signs Temperature: 98 F Blood Pressure: 158/101 Pulse: 85 Respirations: 19 Pulse Ox (%): 93 - Physical Exam General: Alert, In no apparent distress, Oriented x3 Respiratory: Diminished, Expiratory wheezes, Rhonchi/gurgles Cardiovascular: No murmurs, Other (TACHYCARDIC) Gastrointestinal: Normal bowel sounds, Soft and benign, Non-distended, No tenderness Neurological: Normal strength at 5/5 x4 extr, Sensation intact, Cranial nerves 3-12 intact - Studies Medications List Reviewed: Yes Assessment & Plan - Problems (Diagnosis) (1) Pneumonia due to human coronavirus Current Visit: Yes Status: Acute (2) Cellulitis Current Visit: No Status: Acute (3) Diabetic foot ulcer Current Visit: No Status: Acute - Plan Continue with plan of care as mentioned below: 1. Continue with IV antibiotics/consider antiviral as well; pulmonary managing patient's care. 2. COVID-19 pneumonia 3. Repeat chest x-ray worsening 4. O2 per protocol 5. Pulmonary consultation pending 6. Continue with albuterol inhaler therapy; IV dexamethasone; zinc and vitamin-C 7. O2 per protocol-currently on high-flow oxygen. May need to alternate with BiPAP support. 8. Monitor LFTs 9. Repeat labs including D-dimer, ferritin, and CRP and LFTs 10. GI and DVT prophylaxis Discharge Plan: Home Plan to discharge in: Greater than 2 days - Advance Directives Does patient have a Living Will: No Does patient have a Durable POA for Healthcare: No - Code Status/Comfort Care Code Status Assessed: Yes Code Status: Full Code Critical Care: Yes Time Spent Managing PTS Care (In Minutes): 35
--- NOTE | 2020-07-01 08:30 | P.HP ---
Date of Service: 06/29/20 Certification for Inpatient Patient admitted to: Inpatient With expected LOS: >2 Midnights Patient will require the following post-hospital care: None Practitioner: I am a practitioner with admitting privileges, knowledge of patient current condition, hospital course, and medical plan of care. Services: Services provided to patient in accordance with Admission requirements found in Title 42 Section 412.3 of the Code of Federal Regulations Patient History Date of Service: 06/29/20 Reason for admission: Shortness of breath History of Present Illness: Patient is a 39-year-old female came to the hospital after having foot amputation on June 11. She states a week later when she was coming back for follow-up to get stitches removed she was feeling short of breath. She had other family members at that time he tested positive for COVID-19. She continued to feel febrile and weak. She started having upper respiratory symptoms so she came to the hospital today. In the emergency room she was found have COVID-[address] scan did not reveal any pulmonary embolism. At this time, patient be admitted to the hospital for further workup. She requiring 100% non-rebreather and maintaining sats of 93-94%. She will probably benefit from high-flow oxygen. She may also benefit for BiPAP support. Will admit patient to the hospital for further evaluation. Allergies No Known Drug Allergies Allergy (Verified 06/08/20 10:51) Unknown Home Medications: Glipizide [Glipizide ER] 10 mg PO BID 05/28/19 Metformin HCl [Metformin ER Osmotic] 1,000 mg PO BID 05/28/19 lisinopriL [Lisinopril] 1 tab PO DAILY 04/10/20 - Past Medical/Surgical History Has patient received pneumonia vaccine in the past: No Diabetic: Yes -: HTN -: NIDDM -: c-sec x 4 -: hernia repair -: gall bladder removed -: left ovary removed -: bilateral fallopian tubes removed - Family History Mother Medical History: Hypertension, Diabetes, Other (see notes) Notes: CHF Father Medical History: Hypertension, Other (see notes) Notes: CHF - Social History Alcohol use: Yes CD- Drugs: No Caffeine use: Yes Place of Residence: Home Review of Systems 10-point ROS is otherwise unremarkable Physical Examination - Vital Signs Temperature: 97.5 F Blood Pressure: 147/90 Pulse: 99 Respirations: 17 Pulse Ox (%): 90 - Physical Exam General: Alert, In no apparent distress, Oriented x3 HEENT: Atraumatic, PERRLA, Mucous membr. moist/pink, EOMI, Sclerae nonicteric Neck: Supple, 2+ carotid pulse no bruit, No LAD, Without JVD or thyroid abnormality Respiratory: Diminished, Rhonchi/gurgles, Other (coarse breath sounds) Cardiovascular: Regular rate/rhythm, Normal S1 S2, No murmurs Gastrointestinal: Normal bowel sounds, Soft and benign, Non-distended, No tenderness Musculoskeletal: No clubbing, No swelling, Other (Toe amputation intact) Neurological: Normal strength at 5/5 x4 extr, Normal tone, Sensation intact, Cranial nerves 3-12 intact Lymphatics: No axilla or inguinal lymphadenopathy - Studies Laboratory Data (last 24 hrs) 06/29/20 06:30: WBC 11.5 H, Hgb 12.9, Hct 36.9, Plt Count 369 Microbiology Data (last 24 hrs): 06/29/20 06:30 Nasopharnyx Influenza Type A Antigen Screen - Final 06/29/20 06:30 Nasopharnyx Influenza Type B Antigen Screen - Final 06/29/20 06:30 Throat Group A Streptococcus Rapid Screen - Final Assessment & Plan - Problems (Diagnosis) (1) Pneumonia due to human coronavirus Current Visit: Yes Status: Acute (2) Cellulitis Current Visit: No Status: Acute (3) Diabetic foot ulcer Current Visit: No Status: Acute - Plan 1. Continue with IV antibiotics 2. COVID-19 pneumonia 3. Repeat chest x-ray is symptoms are progressively worsening 4. O2 per protocol 5. Pulmonary consultation 6. Continue with albuterol inhaler therapy; IV dexamethasone; zinc and vitamin-C 7. O2 per protocol 8. Monitor LFTs 9. Repeat labs including D-dimer, ferritin, and CRP and LFTs 10. GI and DVT prophylaxis - Advance Directives Does patient have a Living Will: No Does patient have a Durable POA for Healthcare: No Critical Care: Yes Time Spent Managing PTS Care (In Minutes): 60
[2020-07-01] MEDS ORDERED: D50W 25 GM/50 ML SYRINGE/VIAL IV PRN (09:45)
[2020-07-01] MEDS ORDERED: GLUCAGON 1 MG/VIAL IM PRN (09:45)
[2020-07-01] MEDS ORDERED: INSULIN 70/30 100 UNITS/ML SQ ONE (10:00)
[2020-07-01] MEDS: ACETAMINOPHEN 325 MG TABLET PO PRN ×3 (10:08→23:53)
[2020-07-01] MEDS: BENZONATATE 100 MG CAP PO PRN (20:40)
[2020-07-01] MEDS: ATORVASTATIN 40 MG TAB PO SCH (20:41)
[2020-07-01] MEDS: MELATONIN 3 MG TABLET PO SCH (20:41)
[2020-07-01] MEDS: GUAIFENESIN/CODEINE 5ML UCUP PO PRN (23:53)
[2020-07-02] MEDS: INSULIN -REGULAR HUMAN 50 UNIT/0.5 ML ML SQ SCH ×5 (03:37→21:04)
[2020-07-02] MEDS: METOPROLOL TARTRATE 5 MG/5 ML INJ IV SCH ×3 (03:37→14:00)
[2020-07-02 05:49] LABS: BUN Blood Urea Nitrogen 30 mg/dL (7-18); Bicarbonate 30 mmol/L (21-32); Ferritin 607.2 ng/mL (8-388); Glucose Level 182 mg/dL (74-106); Magnesium 1.9 mg/dL (1.8-2.4); Potassium 3.2 mmol/L (3.5-5.1); Sodium Level 141 mmol/L (136-145)
[2020-07-02] MEDS ORDERED: POTASSIUM 25 MEQ EFFERV TAB PO ONE ×2 (06:22→08:00)
[2020-07-02] MEDS: ZINC SULFATE 220 MG CAP PO SCH ×2 (07:48→20:06)
[2020-07-02] MEDS: ASCORBIC ACID 500 MG TABLET PO SCH ×3 (07:48→20:06)
[2020-07-02] MEDS: GLIPIZIDE S.A. 5 MG TAB PO SCH ×2 (07:48→20:08)
[2020-07-02] MEDS: SPIRONOLACTONE 25 MG TABLET PO SCH (07:49)
[2020-07-02] MEDS: VITAMIN D 1000 UNIT TAB PO SCH (07:49)
[2020-07-02] MEDS: ENOXAPARIN 100 MG/ML SYR SQ SCH (07:50)
[2020-07-02] MEDS: FUROSEMIDE 20 MG/ 2ML VIAL IV SCH (07:50)
[2020-07-02] MEDS: METHYLPREDNISOLONE 125 MG INJ IV SCH ×3 (07:51→21:06)
[2020-07-02] MEDS: INSULIN 70/30 100 UNITS/ML SQ SCH ×2 (07:51→16:46)
--- NOTE | 2020-07-02 08:15 | P.PN ---
Subjective Date of Service: 07/02/20 Chief Complaint: Shortness of breath Patient's condition is stable still requiring high concentrations of oxygen inflammatory parameters are improving Review of Systems General: Weakness Respiratory: Shortness of Breath Physical Examination - Vital Signs Temperature: 97.5 F Blood Pressure: 124/76 Pulse: 72 Respirations: 17 Pulse Ox (%): 98 - Studies Medications List Reviewed: Yes Assessment & Plan - Problems (Diagnosis) (1) Pneumonia due to human coronavirus Current Visit: Yes Status: Acute Plan: Respiratory failure from coronal virus she is status post convalescent plasma continue with supportive therapy titrate sat down to 4 L inflammatory markers are both improving white count is a decline titrate sat to 90% continue with steroids change to p.o. Eliquis mild hypokalemia niece potassium replacement
[2020-07-02] MEDS: ACETAMINOPHEN 325 MG TABLET PO PRN (08:21)
[2020-07-02] MEDS: APIXABAN 5 MG TABLET PO SCH ×2 (08:22→20:08)
[2020-07-02] MEDS ORDERED: POTASSIUM CL SA 10 MEQ TAB PO ONE (17:00)
[2020-07-02] MEDS ORDERED: HYDROCODONE/APAP 10/325 TAB ONE (19:44)
[2020-07-02] MEDS: MORPHINE 2 MG/ML SYR IV PRN (19:45)
[2020-07-02] MEDS: MELATONIN 3 MG TABLET PO SCH (20:08)
[2020-07-02] MEDS: BENZONATATE 100 MG CAP PO PRN (20:08)
[2020-07-02] MEDS: ATORVASTATIN 40 MG TAB PO SCH (20:09)
[2020-07-02] MEDS: METOPROLOL TAR 25 MG TAB PO SCH (20:09)
[2020-07-02] MEDS: HYDROCODONE/APAP 10/325 TAB PO PRN (21:05)
[2020-07-03] MEDS: INSULIN -REGULAR HUMAN 50 UNIT/0.5 ML ML SQ SCH ×6 (00:19→20:09)
[2020-07-03 06:16] LABS: Absolute Lymphocytes (CBC) 0.6 K/uL (0.7-4.9); Basophils % 0.7 % (0-1.3); Hematocrit 36.1 % (36.0-45.0); Lymphocytes % 5.9 % (15.3-44.8); MPV 9.1 fL (7.6-11.3); RBC Red Blood Cell Count 4.28 M/uL (3.86-4.86)
[2020-07-03 06:18] LABS: BUN Blood Urea Nitrogen 35 mg/dL (7-18); Bicarbonate 31 mmol/L (21-32); C-Reactive Protein 8.69 mg/L (<3.00); Ferritin 503.3 ng/mL (8-388); Glucose Level 177 mg/dL (74-106); Phosphorus 4.6 mg/dL (2.5-4.9); Potassium 3.9 mmol/L (3.5-5.1); Sodium Level 140 mmol/L (136-145)
[2020-07-03] MEDS: VITAMIN D 1000 UNIT TAB PO SCH (07:45)
[2020-07-03] MEDS: ASCORBIC ACID 500 MG TABLET PO SCH ×3 (07:45→20:10)
[2020-07-03] MEDS: METOPROLOL TAR 25 MG TAB PO SCH ×2 (07:46→20:10)
[2020-07-03] MEDS: FUROSEMIDE 20 MG/ 2ML VIAL IV SCH (07:46)
[2020-07-03] MEDS: GLIPIZIDE S.A. 5 MG TAB PO SCH ×2 (07:46→20:10)
[2020-07-03] MEDS: SPIRONOLACTONE 25 MG TABLET PO SCH (07:47)
[2020-07-03] MEDS: ZINC SULFATE 220 MG CAP PO SCH ×2 (07:47→20:11)
[2020-07-03] MEDS: APIXABAN 5 MG TABLET PO SCH ×2 (07:47→20:11)
[2020-07-03] MEDS: INSULIN 70/30 100 UNITS/ML SQ SCH ×2 (07:48→17:14)
[2020-07-03] MEDS: METHYLPREDNISOLONE 125 MG INJ IV SCH ×2 (07:48→20:10)
[2020-07-03] MEDS ORDERED: POTASSIUM 25 MEQ EFFERV TAB PO ONE (08:00)
--- NOTE | 2020-07-03 09:25 | P.PN ---
Subjective Date of Service: 07/01/20 Patient continues to remain hypoxic. Patient is still on high-flow at 40 L a min and on 90% FiO2. She is very tachypneic today. She is having some pain on inspiration. Continue monitoring hemodynamics very closely. Continue current plan of care. Review of Systems 10-point ROS is otherwise unremarkable Physical Examination - Vital Signs Temperature: 98.4 F Blood Pressure: 121/84 Pulse: 71 Respirations: 19 Pulse Ox (%): 97 - Physical Exam General: Alert, In no apparent distress, Oriented x3, Moderate distress Neck: No Thyromegaly, No LAD Respiratory: Diminished, Rhonchi/gurgles Cardiovascular: Regular rate/rhythm, Normal S1 S2, No murmurs Gastrointestinal: Normal bowel sounds, Soft and benign, Non-distended, No masses, No rebound Musculoskeletal: No clubbing, No swelling Integumentary: No rashes Neurological: Normal gait, Cranial nerves 3-12 intact, Abnormal strength - Studies Medications List Reviewed: Yes Assessment & Plan - Problems (Diagnosis) (1) Pneumonia due to human coronavirus Current Visit: Yes Status: Acute (2) Cellulitis Current Visit: No Status: Acute (3) Diabetic foot ulcer Current Visit: No Status: Acute - Plan Continue with plan of care as mentioned below: 1. Continue with IV antibiotics/consider antiviral as well; pulmonary managing patient's care. 2. COVID-19 pneumonia 3. Repeat chest x-ray worsening 4. O2 per protocol 5. Pulmonary consultation appreciated 6. Continue with albuterol inhaler therapy; IV steroids; zinc and vitamin-C 7. Currently weaning off of high-flow 8. Monitor LFTs 9. Repeat labs including D-dimer, ferritin, and CRP and LFTs 10. GI and DVT prophylaxis Discharge Plan: Home Plan to discharge in: Greater than 2 days - Advance Directives Does patient have a Living Will: No Does patient have a Durable POA for Healthcare: No - Code Status/Comfort Care Code Status: Full Code Critical Care: No Time Spent Managing PTS Care (In Minutes): 30
--- NOTE | 2020-07-03 09:28 | P.PN ---
Subjective Date of Service: 07/02/20 Patient does look to be doing better. FiO2 has decreased to 60% on a high-flow. Saturations are 88%. When she gets in bed than it does tend to go up. Continue with current plan of care at this time. Review of Systems 10-point ROS is otherwise unremarkable Physical Examination - Vital Signs Temperature: 98.4 F Blood Pressure: 121/84 Pulse: 71 Respirations: 19 Pulse Ox (%): 97 - Physical Exam General: Alert, In no apparent distress, Oriented x3 Respiratory: Diminished Cardiovascular: Regular rate/rhythm, Normal S1 S2, No murmurs Gastrointestinal: Normal bowel sounds, Soft and benign, Non-distended, No tenderness Musculoskeletal: No clubbing, No swelling - Studies Medications List Reviewed: Yes Assessment & Plan - Problems (Diagnosis) (1) Pneumonia due to human coronavirus Current Visit: Yes Status: Acute (2) Cellulitis Current Visit: No Status: Acute (3) Diabetic foot ulcer Current Visit: No Status: Acute - Plan Continue with plan of care as mentioned below: 1. Patient gradually improving. Continue monitoring labs closely. CRP is almost under 20. Ferritin improving. D-dimers only labs as tends to go up a little bit. Patient still is oxygenating poorly. It is taking her quite a while to turnaround. Continue with incentive spirometer. 2. Continue with high-flow oxygen; currently at 40 liters/minute. FiO2 of 60- 90%. 3. Pulmonary consultation appreciated 4. Continue with albuterol inhaler therapy; IV steroids; zinc and vitamin-C 5. GI and DVT prophylaxis Discharge Plan: Home Plan to discharge in: Greater than 2 days - Advance Directives Does patient have a Living Will: No Does patient have a Durable POA for Healthcare: No - Code Status/Comfort Care Code Status: Full Code Critical Care: No Time Spent Managing PTS Care (In Minutes): 30
--- NOTE | 2020-07-03 09:28 | P.PN ---
Subjective Date of Service: 07/03/20 Patient does get a little short winded. Under she got out of bed her O2 sats dropped to 70% on high-flow oxygen with a flow rate at 40 liters/minute on 60%. She is clinically not improving as anticipated. Chest x-ray in a.m. Review of Systems 10-point ROS is otherwise unremarkable Physical Examination - Vital Signs Temperature: 98.4 F Blood Pressure: 121/84 Pulse: 71 Respirations: 19 Pulse Ox (%): 97 - Physical Exam General: Alert, In no apparent distress, Oriented x3 Respiratory: Clear to auscultation bilaterally, Normal air movement, Crackles/rales Cardiovascular: Regular rate/rhythm, Normal S1 S2, No murmurs Gastrointestinal: Normal bowel sounds, Soft and benign, Non-distended, No tenderness Musculoskeletal: No clubbing, No swelling, No tenderness Neurological: Cranial nerves 3-12 intact - Studies Medications List Reviewed: Yes Assessment & Plan - Problems (Diagnosis) (1) Pneumonia due to human coronavirus Current Visit: Yes Status: Acute (2) Cellulitis Current Visit: No Status: Acute (3) Diabetic foot ulcer Current Visit: No Status: Acute - Plan Continue with plan of care as mentioned below: 1. Continuing to wean off high-flow oxygen 2. Continue IV steroids and IV antibiotics 3. Repeat chest x-ray pain due 4. Continue with supportive care with prone positioning and incentive spirometer. Out of bed to chair 5. Continue with albuterol inhaler therapy; IV steroids; zinc and vitamin-C 6. GI and DVT prophylaxis Discharge Plan: Home Plan to discharge in: Greater than 2 days - Advance Directives Does patient have a Living Will: No Does patient have a Durable POA for Healthcare: No - Code Status/Comfort Care Code Status: Full Code Critical Care: No Time Spent Managing PTS Care (In Minutes): 30
[2020-07-03 09:46] LABS: Blood Morphology Comment NOT SEEN (NOT SEEN); Platelet Estimate ADEQ; Urine White Blood Cell Casts OK
[2020-07-03] MEDS: MORPHINE 2 MG/ML SYR IV PRN (14:06)
[2020-07-03] MEDS: MELATONIN 3 MG TABLET PO SCH (20:10)
[2020-07-03] MEDS: ATORVASTATIN 40 MG TAB PO SCH (20:10)
[2020-07-04] MEDS: MORPHINE 2 MG/ML SYR IV PRN (00:14)
[2020-07-04] MEDS: INSULIN -REGULAR HUMAN 50 UNIT/0.5 ML ML SQ SCH ×6 (04:19→20:46)
[2020-07-04 05:27] LABS: BUN Blood Urea Nitrogen 33 mg/dL (7-18); Bicarbonate 30 mmol/L (21-32); Ferritin 441.2 ng/mL (8-388); Glucose Level 248 mg/dL (74-106); Potassium 4.3 mmol/L (3.5-5.1); Sodium Level 137 mmol/L (136-145)
[2020-07-04] MEDS: FUROSEMIDE 20 MG/ 2ML VIAL IV SCH (09:05)
[2020-07-04] MEDS: METHYLPREDNISOLONE 125 MG INJ IV SCH ×2 (09:05→20:18)
[2020-07-04] MEDS: METOPROLOL TAR 25 MG TAB PO SCH ×2 (09:06→20:45)
[2020-07-04] MEDS: GLIPIZIDE S.A. 5 MG TAB PO SCH ×2 (09:06→20:17)
[2020-07-04] MEDS: APIXABAN 5 MG TABLET PO SCH ×2 (09:06→20:17)
[2020-07-04] MEDS: SPIRONOLACTONE 25 MG TABLET PO SCH (09:06)
[2020-07-04] MEDS: ZINC SULFATE 220 MG CAP PO SCH ×2 (09:07→20:18)
[2020-07-04] MEDS: VITAMIN D 1000 UNIT TAB PO SCH (09:07)
[2020-07-04] MEDS: ASCORBIC ACID 500 MG TABLET PO SCH ×3 (09:07→20:18)
[2020-07-04] MEDS: INSULIN 70/30 100 UNITS/ML SQ SCH ×2 (09:08→18:48)
--- NOTE | 2020-07-04 19:41 | RAD REPORT ---
EXAM DESCRIPTION: RAD - Chest Single View - 07/04/2020 7:18 pm CLINICAL HISTORY: sob Chest pain. COMPARISON: Chest Single View dated 06/29/2020; Chest Single View dated 04/15/2020 FINDINGS: Portable technique limits examination quality. Since 06/29/2020 prior study, there has been moderate improvement in bilateral pulmonary opacities no sukhjinder. The heart is normal in size. No displaced fractures. IMPRESSION: Moderate improvement aligned aeration is noted since comparative study.
[2020-07-04] MEDS: ATORVASTATIN 40 MG TAB PO SCH (20:17)
[2020-07-04] MEDS: MELATONIN 3 MG TABLET PO SCH (20:17)
[2020-07-05] MEDS: INSULIN -REGULAR HUMAN 50 UNIT/0.5 ML ML SQ SCH ×7 (01:00→21:00)
[2020-07-05 04:39] LABS: Ferritin 403.4 ng/mL (8-388)
[2020-07-05 04:44] LABS: C-Reactive Protein < 2.90 mg/L (<3.00)
[2020-07-05] MEDS: INSULIN 70/30 100 UNITS/ML SQ SCH ×2 (08:18→16:32)
[2020-07-05] MEDS: METHYLPREDNISOLONE 125 MG INJ IV SCH ×2 (08:52→20:52)
[2020-07-05] MEDS: SPIRONOLACTONE 25 MG TABLET PO SCH (08:53)
[2020-07-05] MEDS: FUROSEMIDE 20 MG/ 2ML VIAL IV SCH (08:53)
[2020-07-05] MEDS: GLIPIZIDE S.A. 5 MG TAB PO SCH ×2 (08:54→20:51)
[2020-07-05] MEDS: METOPROLOL TAR 25 MG TAB PO SCH ×2 (08:54→20:47)
[2020-07-05] MEDS: ASCORBIC ACID 500 MG TABLET PO SCH ×3 (08:59→20:53)
[2020-07-05] MEDS: ZINC SULFATE 220 MG CAP PO SCH ×2 (08:59→20:53)
[2020-07-05] MEDS: VITAMIN D 1000 UNIT TAB PO SCH (08:59)
[2020-07-05] MEDS: APIXABAN 5 MG TABLET PO SCH ×2 (08:59→20:51)
--- NOTE | 2020-07-05 09:31 | P.PN ---
Subjective Date of Service: 07/05/20 (TV) Chief Complaint: Resp failure SIg hypoxemia on minimal exertion. NC Physical Examination - Vital Signs Temperature: 98 F Blood Pressure: 118/96 Pulse: 95 Respirations: 26 Pulse Ox (%): 90 - Studies Microbiology Data (last 24 hrs): 06/29/20 06:45 Blood - Blood Aerobic Blood Culture - Final No growth in 5 days. 06/29/20 06:45 Blood - Blood Anaerobic Blood Culture - Final No growth in 5 days. 06/29/20 06:30 Blood - Blood Aerobic Blood Culture - Final No growth in 5 days. 06/29/20 06:30 Blood - Blood Anaerobic Blood Culture - Final No growth in 5 days. Medications List Reviewed: Yes Assessment & Plan - Problems (Diagnosis) (1) Pneumonia due to human coronavirus Current Visit: Yes Status: Acute Plan: Resp failure. Sig desat on minimal exertion. CXRY has improved. Onsteroids. ECHo with doppler labs reviewed. On diuretics , B sugars high Daily CRP and ferrtin levels S/P convalescent plasma
[2020-07-05] MEDS: ACETAMINOPHEN 325 MG TABLET PO PRN (14:49)
--- NOTE | 2020-07-05 17:44 | P.PN ---
Subjective Date of Service: 07/05/20 Patient continues to slowly improved. Placed on nasal cannula at this time. Review of Systems 10-point ROS is otherwise unremarkable Physical Examination - Vital Signs Temperature: 98.4 F Blood Pressure: 121/84 Pulse: 71 Respirations: 19 Pulse Ox (%): 97 - Studies Medications List Reviewed: Yes Assessment & Plan - Problems (Diagnosis) (1) Pneumonia due to human coronavirus Current Visit: Yes Status: Acute (2) Cellulitis Current Visit: No Status: Acute (3) Diabetic foot ulcer Current Visit: No Status: Acute - Plan Continue with plan of care as mentioned below: 1. Continuing to wean off high-flow oxygen; chest x-ray was substantial improvement 2. Continue IV steroids and IV antibiotics; make consider weaning down the steroids since x-ray showing improvement. 3. Continue out of bed and to a chair 4. Continue with supportive care with prone positioning and incentive spirometer. 5. Continue with albuterol inhaler therapy as needed; zinc and vitamin-C 6. GI and DVT prophylaxis - Advance Directives Does patient have a Living Will: No Does patient have a Durable POA for Healthcare: No - Code Status/Comfort Care Code Status: Full Code
--- NOTE | 2020-07-05 17:44 | P.PN ---
Subjective Date of Service: 07/04/20 Chief Complaint: Resp failure Patient chest x-rays show substantial improvement. However, clinically she does not appear to be has improved as her x-ray and her lab her demonstrating. Continue with supportive care and is probably going to take her a few more days to really start turning around but I believe with our x-ray showing significant improvement that she is on the way to recovering. Review of Systems 10-point ROS is otherwise unremarkable Physical Examination - Vital Signs Temperature: 98.4 F Blood Pressure: 121/84 Pulse: 71 Respirations: 19 Pulse Ox (%): 97 - Physical Exam General: Alert, In no apparent distress, Oriented x3 Respiratory: Diminished, Rhonchi/gurgles Cardiovascular: Regular rate/rhythm, Normal S1 S2, No murmurs Gastrointestinal: Normal bowel sounds, Soft and benign, Non-distended, No tenderness Neurological: Sensation intact, Cranial nerves 3-12 intact - Studies Medications List Reviewed: Yes Assessment & Plan - Problems (Diagnosis) (1) Pneumonia due to human coronavirus Current Visit: Yes Status: Acute (2) Cellulitis Current Visit: No Status: Acute (3) Diabetic foot ulcer Current Visit: No Status: Acute - Plan Continue with plan of care as mentioned below: 1. Continuing to wean off high-flow oxygen; chest x-ray was substantial improvement 2. Continue IV steroids and IV antibiotics; make consider weaning down the steroids since x-ray showing improvement. 3. Continue out of bed and to a chair 4. Continue with supportive care with prone positioning and incentive spirometer. 5. Continue with albuterol inhaler therapy as needed; zinc and vitamin-C 6. GI and DVT prophylaxis Discharge Plan: Home Plan to discharge in: Greater than 2 days - Advance Directives Does patient have a Living Will: No Does patient have a Durable POA for Healthcare: No - Code Status/Comfort Care Code Status: Full Code Critical Care: No Time Spent Managing PTS Care (In Minutes): 30
[2020-07-05] MEDS: ATORVASTATIN 40 MG TAB PO SCH (20:51)
[2020-07-05] MEDS: MELATONIN 3 MG TABLET PO SCH (20:51)
[2020-07-06] MEDS: INSULIN -REGULAR HUMAN 50 UNIT/0.5 ML ML SQ SCH ×7 (01:00→23:50)
[2020-07-06 05:24] LABS: Absolute Lymphocytes (CBC) 0.6 K/uL (0.7-4.9); Basophils % 0.1 % (0-1.3); Hematocrit 39.5 % (36.0-45.0); Lymphocytes % 4.2 % (15.3-44.8); MPV 9.7 fL (7.6-11.3); RBC Red Blood Cell Count 4.59 M/uL (3.86-4.86)
[2020-07-06 05:51] LABS: BUN Blood Urea Nitrogen 26 mg/dL (7-18); Bicarbonate 27 mmol/L (21-32); Ferritin 425.3 ng/mL (8-388); Glucose Level 326 mg/dL (74-106); Potassium 4.7 mmol/L (3.5-5.1); Sodium Level 136 mmol/L (136-145)
[2020-07-06 05:57] LABS: C-Reactive Protein < 2.90 mg/L (<3.00)
[2020-07-06] MEDS: SPIRONOLACTONE 25 MG TABLET PO SCH (08:00)
[2020-07-06] MEDS: GLIPIZIDE S.A. 5 MG TAB PO SCH ×2 (08:00→20:13)
[2020-07-06] MEDS: METOPROLOL TAR 25 MG TAB PO SCH ×2 (08:00→20:12)
[2020-07-06] MEDS: ZINC SULFATE 220 MG CAP PO SCH ×2 (08:00→20:12)
[2020-07-06] MEDS: APIXABAN 5 MG TABLET PO SCH ×2 (08:01→20:13)
[2020-07-06] MEDS: INSULIN 70/30 100 UNITS/ML SQ SCH ×2 (08:01→16:40)
[2020-07-06] MEDS: VITAMIN D 1000 UNIT TAB PO SCH (08:01)
[2020-07-06] MEDS: ASCORBIC ACID 500 MG TABLET PO SCH ×3 (08:01→20:12)
[2020-07-06] MEDS: METHYLPREDNISOLONE 125 MG INJ IV SCH (08:02)
--- NOTE | 2020-07-06 09:46 | P.PN ---
Subjective Date of Service: 07/06/20 Chief Complaint: Resp failure Subjective: No new changes, Other (Still on high-flow nasal cannula shortness of breath still present) Review of Systems 10-point ROS is otherwise unremarkable Physical Examination - Vital Signs Temperature: 97.4 F Blood Pressure: 118/97 Pulse: 84 Respirations: 16 Pulse Ox (%): 77 - Physical Exam General: Alert, In no apparent distress HEENT: Atraumatic, Normocephalic Neck: Supple Respiratory: Diminished, Crackles/rales Cardiovascular: Regular rate/rhythm, Normal S1 S2 Capillary refill: <2 Seconds Gastrointestinal: Soft and benign, W/out hepatosplenomegaly Musculoskeletal: No clubbing, No swelling Integumentary: No rashes, No breakdown Neurological: Normal speech, Normal strength at 5/5 x4 extr Lymphatics: No axilla or inguinal lymphadenopathy - Studies Medications List Reviewed: Yes Assessment & Plan - Problems (Diagnosis) (1) Pneumonia due to COVID-19 virus Current Visit: Yes Status: Acute Physician Review Additional Text: Acute hypoxic respiratory failure Pneumonia due to COVID 19 Hypertension Diabetes Plan On high-flow nasal cannula Will try to wean down no oxygen requirement Appreciate help from pulmonology CRP trended down On steroids will try to taper down Hyperglycemia noted Insulin titrated Monitor closely under telemetry Antihypertensives titrated Continue other supportive therapy including sink and vitamin-C Anticoagulation GI/DVT prophylaxis Time Spent Managing Pts Care (In Minutes): 43
[2020-07-06] MEDS: ALPRAZOLAM 0.25 MG TABLET PO PRN ×2 (09:53→20:16)
--- NOTE | 2020-07-06 12:16 | P.PN ---
Subjective Date of Service: 07/06/20 Chief Complaint: Resp failure Patient is still significantly hypoxic slowly improving Physical Examination - Vital Signs Temperature: 97.4 F Blood Pressure: 111/68 Pulse: 87 Respirations: 17 Pulse Ox (%): 94 - Studies Medications List Reviewed: Yes Assessment & Plan - Problems (Diagnosis) (1) Pneumonia due to human coronavirus Current Visit: Yes Status: Acute Plan: Respiratory failure patient's inflammatory markers are all improving CRP now is less than 10 blood sugars elevated patient is still on high-flow oxygen continue with weaning still on high-flow oxygen desat on minimal exertion reduce dose of steroids
[2020-07-06] MEDS: HYDROCODONE/APAP 10/325 TAB PO PRN (14:56)
[2020-07-06] MEDS: ATORVASTATIN 40 MG TAB PO SCH (20:13)
[2020-07-06] MEDS: MELATONIN 3 MG TABLET PO SCH (20:13)
[2020-07-06] MEDS: METHYLPREDNISOLONE 40 MG INJ IV SCH (20:14)
[2020-07-07] MEDS: INSULIN -REGULAR HUMAN 50 UNIT/0.5 ML ML SQ SCH ×5 (04:00→20:08)
[2020-07-07] MEDS: HYDROCODONE/APAP 10/325 TAB PO PRN ×2 (04:03→18:03)
[2020-07-07 05:32] LABS: Absolute Lymphocytes (CBC) 0.6 K/uL (0.7-4.9); Hematocrit 39.4 % (36.0-45.0); MPV 9.8 fL (7.6-11.3); RBC Red Blood Cell Count 4.59 M/uL (3.86-4.86)
[2020-07-07 05:49] LABS: BUN Blood Urea Nitrogen 38 mg/dL (7-18); Bicarbonate 29 mmol/L (21-32); Ferritin 453.6 ng/mL (8-388); Glucose Level 156 mg/dL (74-106); Magnesium 1.8 mg/dL (1.8-2.4); Potassium 4.5 mmol/L (3.5-5.1); Sodium Level 138 mmol/L (136-145)
[2020-07-07 05:51] LABS: C-Reactive Protein < 2.90 mg/L (<3.00)
[2020-07-07] MEDS ORDERED: MAGNESIUM SULFATE 1 gm IVPB 1 GM/100 ML BAG IV ONE (07:02)
[2020-07-07] MEDS: GLIPIZIDE S.A. 5 MG TAB PO SCH ×2 (07:47→20:59)
[2020-07-07] MEDS: APIXABAN 5 MG TABLET PO SCH ×2 (07:48→20:58)
[2020-07-07] MEDS: SPIRONOLACTONE 25 MG TABLET PO SCH (07:48)
[2020-07-07] MEDS: ASCORBIC ACID 500 MG TABLET PO SCH ×3 (07:48→20:59)
[2020-07-07] MEDS: VITAMIN D 1000 UNIT TAB PO SCH (07:48)
[2020-07-07] MEDS: METHYLPREDNISOLONE 40 MG INJ IV SCH ×2 (07:49→20:59)
[2020-07-07] MEDS: METOPROLOL TAR 25 MG TAB PO SCH ×2 (07:49→20:59)
[2020-07-07] MEDS: ZINC SULFATE 220 MG CAP PO SCH ×2 (07:49→20:58)
[2020-07-07] MEDS: INSULIN 70/30 100 UNITS/ML SQ SCH ×2 (08:22→15:41)
--- NOTE | 2020-07-07 08:48 | ECHO ---
HEIGHT: 5 ft 8 in WEIGHT: 189 lb 0 oz DATE OF STUDY: 07/06/[address]: Oseas Villagran MD 2-DIMENSIONAL: YES M.MODE: NO DOPPLER: YES COLOR FLOW: YES TDS: YES PORTABLE: NO DEFINITY: NO BUBBLE STUDY: NO DIAGNOSIS: COVID PNEUMONIA CARDIAC HISTORY: CATHERIZATION: NO SURGERY: NO PROSTHETIC VALVE: NO PACEMAKER: NO MEASUREMENTS (cm) DIASTOLIC (NORMALS) SYSTOLIC (NORMALS) IVSd 1.0 (0.6-1.2) LA Diam (1.9-4.0) LVEF 53% LVIDd 4.5 (3.5-5.7) LVIDs 3.3 (2.0-3.5) %FS 27% LVPWd 1.2 (0.6-1.2) Ao Diam (2.0-3.7) 2 DIMENSIONAL ASSESSMENT: RIGHT ATRIUM: LEFT ATRIUM: RIGHT VENTRICLE: LEFT VENTRICLE: TRICUSPID VALVE: MITRAL VALVE: PULMONIC VALVE: AORTIC VALVE: PERICARDIAL EFFUSION: AORTIC ROOT: LEFT VENTRICULAR WALL MOTION: DOPPLER/COLOR FLOW: COMMENTS: ONLY SUBCOSTAL VIEWS ARE OBSTAINED. VERY LIMITED STUDY. LEFT VENTRICULAR APPEARS TO BE NORMAL, BUT THIS LIMITED STUDY, RECOMMEND REPEAT FULL ECHO WITH CONTRAST. TECHNOLOGIST: ELISEO LOPEZ
--- NOTE | 2020-07-07 09:10 | P.PN ---
Subjective Date of Service: 07/07/20 Chief Complaint: Resp failure Subjective: Other (Feeling slightly better Denies any chest pain or shortness of breath Still on high-flow) Review of Systems 10-point ROS is otherwise unremarkable Physical Examination - Vital Signs Temperature: 96.1 F Blood Pressure: 110/83 Pulse: 74 Respirations: 18 Pulse Ox (%): 95 - Physical Exam General: Alert, In no apparent distress, Oriented x3 HEENT: Atraumatic, Normocephalic Neck: Supple, 2+ carotid pulse no bruit Respiratory: Diminished, Crackles/rales Cardiovascular: Regular rate/rhythm, Normal S1 S2 Capillary refill: <2 Seconds Gastrointestinal: Soft and benign, W/out hepatosplenomegaly Musculoskeletal: No clubbing, No swelling Integumentary: No rashes Neurological: Normal speech, Normal strength at 5/5 x4 extr Lymphatics: No axilla or inguinal lymphadenopathy - Studies Laboratory Last Values WBC 11.5 K/uL (4.3-10.9) H 06/29/20 06:30 RBC 4.37 M/uL (3.86-4.86) 06/29/20 06:30 Hgb 12.9 g/dL (12.0-15.0) 06/29/20 06:30 Hct 36.9 % (36.0-45.0) 06/29/20 06:30 MCV 84.4 fL (80-100) 06/29/20 06:30 MCH 29.7 pg (27.0-35.0) 06/29/20 06:30 MCHC 35.1 g/dL (32.0-36.0) 06/29/20 06:30 RDW 12.9 % (12.1-15.2) 06/29/20 06:30 Plt Count 369 K/uL (152-406) 06/29/20 06:30 MPV 9.3 fL (7.6-11.3) 06/29/20 06:30 Neutrophils % 78.0 % (41.7-73.7) H 06/29/20 06:30 Lymphocytes % 9.4 % (15.3-44.8) L 06/29/20 06:30 Monocytes % 11.1 % (3.3-12.3) 06/29/20 06:30 Eosinophils % 1.1 % (0-4.4) 06/29/20 06:30 Basophils % 0.4 % (0-1.3) 06/29/20 06:30 Absolute Neutrophils 9.0 K/uL (1.8-8.0) H 06/29/20 06:30 Segmented Neutrophils 71 % (40-80) 06/29/20 06:30 Band Neutrophils 1 % (0-1) 06/29/20 06:30 Absolute Lymphocytes 1.1 K/uL (0.7-4.9) 06/29/20 06:30 Lymphocytes 16 % (15-42) 06/29/20 06:30 Monocytes 7 % (0-10) 06/29/20 06:30 Absolute Monocytes 1.3 K/uL (0.1-1.3) 06/29/20 06:30 Eosinophils 2 % (0-3) 06/29/20 06:30 Absolute Eosinophils 0.1 K/uL (0-0.5) 06/29/20 06:30 Absolute Basophils 0.0 K/uL (0-0.5) 06/29/20 06:30 Metamyelocytes 3 % (0-0) H 06/29/20 06:30 Morphology Comment Not seen (NOT SEEN) 06/29/20 06:30 PT 14.1 SECONDS (9.5-12.5) H 06/29/20 06:30 INR 1.20 06/29/20 06:30 APTT 25.5 SECONDS (24.3-36.9) 06/29/20 06:30 Sodium 132 mmol/L (136-145) L 06/29/20 06:30 Potassium 3.3 mmol/L (3.5-5.1) L 06/29/20 06:30 Chloride 96 mmol/L (98-107) L 06/29/20 06:30 Carbon Dioxide 29 mmol/L (21-32) 06/29/20 06:30 BUN 11 mg/dL (7-18) 06/29/20 06:30 Creatinine 0.86 mg/dL (0.55-1.3) 06/29/20 06:30 Estimated GFR 73 mL/min (=/>90) L 06/29/20 06:30 Glucose 336 mg/dL (74-106) H 06/29/20 06:30 POC Glucose 372 mg/dL (65-120) H 06/29/20 12:03 Lactic Acid 1.8 mmol/L (0.4-2.0) 06/29/20 06:30 Calcium 8.5 mg/dL (8.5-10.1) 06/29/20 06:30 Ferritin 735.7 ng/mL (8-388) H 06/29/20 06:30 Total Bilirubin 0.6 mg/dL (0.2-1.0) 06/29/20 06:30 Direct Bilirubin 0.2 mg/dL (0-0.2) 06/29/20 06:30 AST 14 U/L (15-37) L 06/29/20 06:30 ALT 20 U/L (12-78) 06/29/20 06:30 Alkaline Phosphatase 104 U/L (45-117) 06/29/20 06:30 Creatine Kinase 31 U/L (26-192) 06/29/20 06:30 CK-MB (CK-2) < 1.0 ng/mL (0.3-3.6) 06/29/20 06:30 Rapid Troponin I < 0.02 ng/mL (0.0-0.045) 06/29/20 06:30 C-Reactive Protein 213.00 mg/L (<3.00) H 06/29/20 06:30 Serum Total Protein 8.2 g/dL (6.4-8.2) 06/29/20 06:30 Albumin 2.4 g/dL (3.4-5.0) L 06/29/20 06:30 Globulin 5.8 g/dL (2.3-3.5) H 06/29/20 06:30 Albumin/Globulin Ratio 0.4 (1.1-1.8) L 06/29/20 06:30 Amylase 37 U/L (25-115) 06/29/20 06:30 Lipase 157 U/L (73-393) 06/29/20 06:30 Procalcitonin 0.11 ng/mL (<0.50) 06/29/20 06:30 Urine pH 7.0 (5.0-7.0) 06/29/20 10:30 Ur Specific [place] 1.010 (1.005-1.030) 06/29/20 10:30 Glucose (UA)(Auto) 2+ (NEG) H 06/29/20 10:30 Urine Ketones Trace (NEG) 06/29/20 10:30 Urine Blood Negative (NEG) 06/29/20 10:30 Urine Nitrite Negative (NEG) 06/29/20 10:30 Ur Leukocyte Esterase Negative (NEG) 06/29/20 10:30 Urine RBC <5 /HPF (NONE SEEN) 06/29/20 09:20 Urine WBC <5 /HPF (<5) 06/29/20 09:20 Ur Squamous Epith Cells 5-10 /HPF (NONE SEEN) H 06/29/20 09:20 Ur Urothelial Cells Cancelled 06/29/20 06:21 Calcium Oxalate Crystal Cancelled 06/29/20 06:21 Uric Acid Crystals Cancelled 06/29/20 06:21 Triple Phos Crystals Cancelled 06/29/20 06:21 Other Crystals Cancelled 06/29/20 06:21 Amorphous Sediment Cancelled 06/29/20 06:21 Glitter Cells Cancelled 06/29/20 06:21 Urine Bacteria <20 /HPF (<20) 06/29/20 09:20 Hyaline Casts Cancelled 06/29/20 06:21 Fine Granular Casts Cancelled 06/29/20 06:21 Coarse Granular Casts Cancelled 06/29/20 06:21 Waxy Casts Cancelled 06/29/20 06:21 RBC Casts Cancelled 06/29/20 06:21 WBC Casts Cancelled 06/29/20 06:21 Urine Mucus Cancelled 06/29/20 06:21 Urine Other Cancelled 06/29/20 06:21 Urine Trichomonas Cancelled 06/29/20 06:21 Urine Yeast Present (NONE SEEN) H 06/29/20 09:20 Ur Yeast w Hyphae Cancelled 06/29/20 06:21 Urine Yeast (Budding) Cancelled 06/29/20 06:21 Urine Sperm Cancelled 06/29/20 06:21 Urine Culture Reflexed Not needed 06/29/20 09:20 Urine Total Volume Cancelled 06/29/20 06:21 Urine Total Protein Trace (NEG) 06/29/20 10:30 Medications List Reviewed: Yes Assessment & Plan - Problems (Diagnosis) (1) Pneumonia due to COVID-19 virus Current Visit: Yes Status: Acute Physician Review Additional Text: Acute hypoxic respiratory failure Pneumonia due to COVID 19 Hypertension Diabetes Plan Still on high-flow nasal cannula Will try to wean down on oxygen requirement Appreciate help from pulmonology CRP is normalized On steroids will try to taper down Hyperglycemia noted treated with Insulin Monitor closely under telemetry Antihypertensives titrated Continue other supportive therapy including Zinc and vitamin-C Continue Anticoagulation GI/DVT prophylaxis Disposition : Wean down oxygen requirement May need home O2 Awaiting further pulmonology recovery Time Spent Managing Pts Care (In Minutes): 42
[2020-07-07 09:46] LABS: Blood Morphology Comment NOT SEEN (NOT SEEN); Platelet Estimate ADEQ
--- NOTE | 2020-07-07 11:25 | P.PN ---
Subjective Date of Service: 07/07/20 Chief Complaint: Resp failure Patient is feeling better today improving Physical Examination - Vital Signs Temperature: 96.1 F Blood Pressure: 80/50 Pulse: 85 Respirations: 17 Pulse Ox (%): 88 - Studies Medications List Reviewed: Yes Assessment & Plan - Problems (Diagnosis) (1) Pneumonia due to human coronavirus Current Visit: Yes Status: Acute Plan: Patient is gradually improving Dc spironolactone continue to wean down oxygen once the patient is on 4 L of nasal cannula oxygen plan to discharge on prednisone 20 b.i.d. for a week and 10 b.i.d. for another week
[2020-07-07] MEDS: ALPRAZOLAM 0.25 MG TABLET PO PRN (15:40)
[2020-07-07] MEDS: ATORVASTATIN 40 MG TAB PO SCH (20:58)
[2020-07-07] MEDS: MELATONIN 3 MG TABLET PO SCH (20:59)
[2020-07-08] MEDS: INSULIN -REGULAR HUMAN 50 UNIT/0.5 ML ML SQ SCH ×6 (04:00→20:19)
[2020-07-08 05:29] LABS: BUN Blood Urea Nitrogen 29 mg/dL (7-18); Bicarbonate 30 mmol/L (21-32); Glucose Level 157 mg/dL (74-106); Magnesium 1.9 mg/dL (1.8-2.4); Potassium 4.4 mmol/L (3.5-5.1); Sodium Level 139 mmol/L (136-145)
--- NOTE | 2020-07-08 06:59 | P.PN ---
Subjective Date of Service: 07/08/20 Chief Complaint: Resp failure Subjective: No new changes, Other (Was on prone position overnight and saturation was better Denies any chest pain Had Dysponea on exertion) Review of Systems 10-point ROS is otherwise unremarkable Physical Examination - Vital Signs Temperature: 97.6 F Blood Pressure: 114/84 Pulse: 75 Respirations: 12 Pulse Ox (%): 90 - Physical Exam General: Alert, In no apparent distress HEENT: Atraumatic, Normocephalic Neck: Supple Respiratory: Diminished, Crackles/rales Cardiovascular: Regular rate/rhythm, Normal S1 S2 Capillary refill: <2 Seconds Gastrointestinal: Soft and benign, W/out hepatosplenomegaly Musculoskeletal: No clubbing, No swelling Integumentary: No rashes Neurological: Normal speech, Normal strength at 5/5 x4 extr Lymphatics: No axilla or inguinal lymphadenopathy - Studies Medications List Reviewed: Yes Assessment & Plan - Problems (Diagnosis) (1) Pneumonia due to COVID-19 virus Current Visit: Yes Status: Acute Physician Review Additional Text: Acute hypoxic respiratory failure Pneumonia due to COVID 19 Hypertension Diabetes Plan Still on high-flow nasal cannula Hypoxic on minimal exertion and is saturating 78 Will put on Bipap Appreciate help from pulmonology Steroid was previously tapered Will increase the dose of steroid Hyperglycemia noted treated with Insulin Monitor closely under telemetry Antihypertensives titrated Continue other supportive therapy including Zinc and vitamin-C Continue Anticoagulation GI/DVT prophylaxis Disposition : Wean down oxygen requirement May need home O2 Awaiting further respiratory recovery Time Spent Managing Pts Care (In Minutes): 42
[2020-07-08] MEDS: INSULIN 70/30 100 UNITS/ML SQ SCH ×2 (07:30→16:30)
[2020-07-08] MEDS: GUAIFENESIN/CODEINE 5ML UCUP PO PRN (08:47)
[2020-07-08] MEDS: BENZONATATE 100 MG CAP PO PRN (08:48)
[2020-07-08] MEDS: METHYLPREDNISOLONE 40 MG INJ IV SCH ×2 (08:48→09:00)
[2020-07-08] MEDS: METOPROLOL TAR 25 MG TAB PO SCH ×2 (08:49→20:18)
[2020-07-08] MEDS: ASCORBIC ACID 500 MG TABLET PO SCH ×3 (08:49→20:19)
[2020-07-08] MEDS: ALPRAZOLAM 0.25 MG TABLET PO PRN ×2 (08:49→22:01)
[2020-07-08] MEDS: APIXABAN 5 MG TABLET PO SCH ×2 (08:50→20:18)
[2020-07-08] MEDS: ZINC SULFATE 220 MG CAP PO SCH ×2 (08:50→20:19)
[2020-07-08] MEDS: GLIPIZIDE S.A. 5 MG TAB PO SCH ×2 (08:50→20:18)
[2020-07-08] MEDS: VITAMIN D 1000 UNIT TAB PO SCH (08:51)
[2020-07-08] MEDS ORDERED: METHYLPREDNISOLONE 40 MG INJ IV SCH (10:00)
[2020-07-08] MEDS: HYDROCODONE/APAP 10/325 TAB PO PRN ×2 (11:13→19:56)
--- NOTE | 2020-07-08 11:14 | P.PN ---
Subjective Date of Service: 07/08/20 Chief Complaint: Resp failure Patient is slightly worse today she did and she got worse after her steroid dose was increased was doing better yesterday has significant desaturation on mild exertion Physical Examination - Vital Signs Temperature: 97.6 F Blood Pressure: 114/84 Pulse: 75 Respirations: 12 Pulse Ox (%): 90 - Studies Medications List Reviewed: Yes Assessment & Plan - Problems (Diagnosis) (1) Pneumonia due to human coronavirus Current Visit: Yes Status: Acute Plan: respiratory failure patient has worsened change back to IV Solu-Medrol still has significant desat on exertion labs reviewed
[2020-07-08 12:27] LABS: Ferritin 433.2 ng/mL (8-388)
[2020-07-08 13:03] LABS: C-Reactive Protein < 2.90 mg/L (<3.00)
--- NOTE | 2020-07-08 14:10 | RAD REPORT ---
EXAM DESCRIPTION: RAD - Chest Single View - 07/08/2020 1:59 pm CLINICAL HISTORY: Pérez virus pneumonia Chest pain. COMPARISON: Chest Single View dated 07/04/2020; Chest Single View dated 06/29/2020; Chest Single View dated 04/15/2020 FINDINGS: Portable technique limits examination quality. Moderate bilateral pulmonary opacities are again noted, essentially stable since comparative study. T he heart is normal in size. No displaced fractures. IMPRESSION: Stable chest since comparative study.
[2020-07-08] MEDS: METHYLPREDNISOLONE 125 MG INJ IV SCH (17:22)
[2020-07-08] MEDS: ATORVASTATIN 40 MG TAB PO SCH (20:18)
[2020-07-08] MEDS: MELATONIN 3 MG TABLET PO SCH (20:19)
[2020-07-09] MEDS: METHYLPREDNISOLONE 125 MG INJ IV SCH ×3 (00:11→16:39)
[2020-07-09] MEDS: INSULIN -REGULAR HUMAN 50 UNIT/0.5 ML ML SQ SCH ×7 (00:14→23:37)
[2020-07-09 05:21] LABS: Ferritin 455.1 ng/mL (8-388)
[2020-07-09 05:47] LABS: C-Reactive Protein < 2.90 mg/L (<3.00)
[2020-07-09] MEDS: HYDROCODONE/APAP 10/325 TAB PO PRN (06:06)
[2020-07-09 08:10] LABS: Absolute Lymphocytes (CBC) 0.7 K/uL (0.7-4.9); Basophils % 0.5 % (0-1.3); Hematocrit 39.3 % (36.0-45.0); Lymphocytes % 5.3 % (15.3-44.8); MPV 10.5 fL (7.6-11.3)
[2020-07-09] MEDS: ALPRAZOLAM 0.25 MG TABLET PO PRN ×2 (08:10→23:31)
[2020-07-09 08:16] LABS: ALT/SGPT 40 U/L (12-78); AST/SGOT 9 U/L (15-37); Albumin 2.4 g/dL (3.4-5.0); Alkaline Phosphatase 106 U/L (45-117); BUN Blood Urea Nitrogen 27 mg/dL (7-18); Bicarbonate 28 mmol/L (21-32); Bilirubin Total 0.6 mg/dL (0.2-1.0); Glucose Level 212 mg/dL (74-106); Potassium 4.3 mmol/L (3.5-5.1); Protein, Total 6.2 g/dL (6.4-8.2); Sodium Level 137 mmol/L (136-145)
[2020-07-09] MEDS: BENZONATATE 100 MG CAP PO PRN (08:31)
[2020-07-09] MEDS: GLIPIZIDE S.A. 5 MG TAB PO SCH ×2 (08:31→20:00)
[2020-07-09] MEDS: METOPROLOL TAR 25 MG TAB PO SCH ×2 (08:31→20:01)
[2020-07-09] MEDS: APIXABAN 5 MG TABLET PO SCH ×2 (08:32→20:01)
[2020-07-09] MEDS: ZINC SULFATE 220 MG CAP PO SCH ×2 (08:32→20:01)
[2020-07-09] MEDS: ASCORBIC ACID 500 MG TABLET PO SCH ×3 (08:32→20:01)
[2020-07-09] MEDS: INSULIN 70/30 100 UNITS/ML SQ SCH ×2 (08:36→16:36)
--- NOTE | 2020-07-09 08:42 | EKG ---
Test Date: 2020-07-08 Test Time: 11:09:33 Card Brusher: RONAL MEASUREMENT RESULTS: Intervals: Rate: 76 MA: 150 QRSD: 92 QT: 390 QTc: 438 [place]: P: 42 MA: 150 QRS: 40 T: 61 INTERPRETIVE STATEMENTS: Normal sinus rhythm Normal ECG Compared to ECG 06/29/2020 06:20:21 Myocardial infarct finding no longer present Electronically Signed On 07-09-20 08:38:34 CDT by Leo Magana
[2020-07-09] MEDS: VITAMIN D 1000 UNIT TAB PO SCH (08:48)
[2020-07-09 09:01] LABS: C-Reactive Protein < 2.90 mg/L (<3.00)
--- NOTE | 2020-07-09 11:22 | P.PN ---
Subjective Date of Service: 07/09/20 Chief Complaint: Resp failure Subjective: No new changes, Other ( afebrile, denies any chest pain or shortness of breath) Review of Systems 10-point ROS is otherwise unremarkable Physical Examination - Vital Signs Temperature: 97.4 F Blood Pressure: 112/74 Pulse: 77 Respirations: 21 Pulse Ox (%): 87 - Physical Exam General: Alert, In no apparent distress HEENT: Atraumatic, Normocephalic Neck: Supple Respiratory: Diminished Cardiovascular: Regular rate/rhythm, Normal S1 S2 Capillary refill: <2 Seconds Gastrointestinal: Soft and benign, W/out hepatosplenomegaly Musculoskeletal: No clubbing, No swelling Integumentary: No rashes, No breakdown Neurological: Normal speech, Normal strength at 5/5 x4 extr Lymphatics: No axilla or inguinal lymphadenopathy - Studies Medications List Reviewed: Yes Assessment & Plan - Problems (Diagnosis) (1) Pneumonia due to COVID-19 virus Current Visit: Yes Status: Acute Physician Review Additional Text: Acute hypoxic respiratory failure Pneumonia due to COVID 19 Hypertension Diabetes Plan Still on high-flow nasal cannula Hypoxic on minimal exertion Was on Bipap Appreciate help from pulmonology Continue steroids CRP still on the low side Hyperglycemia treated with Insulin Monitor closely under telemetry Antihypertensives titrated Continue other supportive therapy including Zinc and vitamin-C Continue Anticoagulation GI/DVT prophylaxis Disposition : Wean down oxygen requirement May need home O2 Awaiting further respiratory recovery Time Spent Managing Pts Care (In Minutes): 43
[2020-07-09] MEDS: MELATONIN 3 MG TABLET PO SCH (20:01)
[2020-07-09] MEDS: ATORVASTATIN 40 MG TAB PO SCH (20:01)
[2020-07-10] MEDS: METHYLPREDNISOLONE 125 MG INJ IV SCH ×3 (01:01→17:17)
[2020-07-10] MEDS: INSULIN -REGULAR HUMAN 50 UNIT/0.5 ML ML SQ SCH ×6 (04:02→23:55)
[2020-07-10 05:34] LABS: Ferritin 430.8 ng/mL (8-388)
[2020-07-10 05:36] LABS: C-Reactive Protein < 2.90 mg/L (<3.00)
[2020-07-10] MEDS: ZINC SULFATE 220 MG CAP PO SCH ×2 (09:45→20:18)
[2020-07-10] MEDS: INSULIN 70/30 100 UNITS/ML SQ SCH ×2 (09:45→17:04)
[2020-07-10] MEDS: APIXABAN 5 MG TABLET PO SCH ×2 (09:46→20:17)
[2020-07-10] MEDS: VITAMIN D 1000 UNIT TAB PO SCH (09:46)
[2020-07-10] MEDS: ASCORBIC ACID 500 MG TABLET PO SCH ×3 (09:46→20:18)
[2020-07-10] MEDS: ALPRAZOLAM 0.25 MG TABLET PO PRN (09:46)
[2020-07-10] MEDS: GLIPIZIDE S.A. 5 MG TAB PO SCH ×2 (09:46→20:17)
[2020-07-10] MEDS: METOPROLOL TAR 25 MG TAB PO SCH ×2 (09:47→20:16)
--- NOTE | 2020-07-10 09:50 | P.PN ---
Subjective Date of Service: 07/10/20 Chief Complaint: Resp failure Subjective: No new changes, Other (Still desats on minimal exertion up to 74) Review of Systems 10-point ROS is otherwise unremarkable Physical Examination - Vital Signs Temperature: 97.8 F Blood Pressure: 133/81 Pulse: 106 Respirations: 32 Pulse Ox (%): 80 - Physical Exam General: Alert, In no apparent distress HEENT: Atraumatic, Normocephalic Neck: Supple, 2+ carotid pulse no bruit Respiratory: Diminished, Crackles/rales Cardiovascular: Regular rate/rhythm, Normal S1 S2 Capillary refill: <2 Seconds Gastrointestinal: Soft and benign, W/out hepatosplenomegaly Musculoskeletal: No clubbing, No swelling Integumentary: No rashes, No breakdown Neurological: Normal speech, Normal strength at 5/5 x4 extr Lymphatics: No axilla or inguinal lymphadenopathy - Studies Medications List Reviewed: Yes Assessment & Plan - Problems (Diagnosis) (1) Pneumonia due to COVID-19 virus Current Visit: Yes Status: Acute Physician Review Additional Text: Acute hypoxic respiratory failure Pneumonia due to COVID 19 Hypertension Diabetes Plan Still on high-flow nasal cannula 30 L at 60% FiO2 Hypoxic on minimal exertion to 74 Appreciate help from pulmonology Continue steroids CRP monitored Hyperglycemia treated with Insulin Monitor closely under telemetry Antihypertensives titrated Continue other supportive therapy including Zinc and vitamin-C Continue Anticoagulation GI/DVT prophylaxis Disposition : Wean down oxygen requirement Awaiting further respiratory recovery Time Spent Managing Pts Care (In Minutes): 43
[2020-07-10] MEDS ORDERED: BISACODYL 10 MG RECTAL SUPP PR ONE (10:00)
[2020-07-10] MEDS: DOCUSATE NA 100 MG CAP PO SCH ×2 (14:38→20:17)
[2020-07-10] MEDS ORDERED: MINERAL OIL ENEMA 135 ML BTL PR SCH (16:00)
[2020-07-10] MEDS: ATORVASTATIN 40 MG TAB PO SCH (20:17)
[2020-07-10] MEDS: MELATONIN 3 MG TABLET PO SCH (20:17)
[2020-07-11] MEDS: METHYLPREDNISOLONE 125 MG INJ IV SCH ×3 (00:22→16:17)
[2020-07-11] MEDS: INSULIN -REGULAR HUMAN 50 UNIT/0.5 ML ML SQ SCH ×5 (04:02→20:20)
[2020-07-11 06:23] LABS: Ferritin 379.1 ng/mL (8-388)
[2020-07-11 06:29] LABS: C-Reactive Protein < 2.90 mg/L (<3.00)
[2020-07-11] MEDS: GLIPIZIDE S.A. 5 MG TAB PO SCH ×2 (08:09→20:21)
[2020-07-11] MEDS: DOCUSATE NA 100 MG CAP PO SCH ×2 (08:10→20:21)
[2020-07-11] MEDS: ZINC SULFATE 220 MG CAP PO SCH ×2 (08:10→20:21)
[2020-07-11] MEDS: METOPROLOL TAR 25 MG TAB PO SCH ×2 (08:10→20:19)
[2020-07-11] MEDS: APIXABAN 5 MG TABLET PO SCH ×2 (08:10→20:21)
[2020-07-11] MEDS: VITAMIN D 1000 UNIT TAB PO SCH (08:10)
[2020-07-11] MEDS: ASCORBIC ACID 500 MG TABLET PO SCH ×3 (08:10→20:21)
[2020-07-11] MEDS: INSULIN 70/30 100 UNITS/ML SQ SCH ×2 (08:11→16:14)
[2020-07-11 08:23] LABS: Absolute Lymphocytes (CBC) 0.8 K/uL (0.7-4.9); Basophils % 0.3 % (0-1.3); Lymphocytes % 4.9 % (15.3-44.8); MPV 10.3 fL (7.6-11.3)
[2020-07-11 08:30] LABS: ALT/SGPT 41 U/L (12-78); AST/SGOT 12 U/L (15-37); Albumin 2.3 g/dL (3.4-5.0); Alkaline Phosphatase 114 U/L (45-117); BUN Blood Urea Nitrogen 25 mg/dL (7-18); Bicarbonate 27 mmol/L (21-32); Bilirubin Total 0.5 mg/dL (0.2-1.0); Glucose Level 177 mg/dL (74-106); Potassium 3.9 mmol/L (3.5-5.1); Protein, Total 5.7 g/dL (6.4-8.2); Sodium Level 141 mmol/L (136-145)
--- NOTE | 2020-07-11 08:59 | P.PN ---
Subjective Date of Service: 07/11/20 Chief Complaint: Resp failure Subjective: No new changes, Other (Feeling slightly better Denies any chest pain or shortness of breath) Review of Systems 10-point ROS is otherwise unremarkable Physical Examination - Vital Signs Temperature: 97.6 F Blood Pressure: 132/94 Pulse: 78 Respirations: 17 Pulse Ox (%): 83 - Physical Exam General: Alert, In no apparent distress HEENT: Atraumatic, Normocephalic Neck: Supple Respiratory: Diminished, Crackles/rales Cardiovascular: Regular rate/rhythm, Normal S1 S2 Capillary refill: <2 Seconds Gastrointestinal: Soft and benign, W/out hepatosplenomegaly Musculoskeletal: No clubbing, No swelling Integumentary: No significant lesion, No tenderness/swelling Neurological: Normal speech, Normal strength at 5/5 x4 extr Lymphatics: No axilla or inguinal lymphadenopathy - Studies Medications List Reviewed: Yes Assessment & Plan - Problems (Diagnosis) (1) Pneumonia due to COVID-19 virus Current Visit: Yes Status: Acute Physician Review Additional Text: Acute hypoxic respiratory failure Pneumonia due to COVID 19 Hypertension Diabetes Plan Still on high-flow nasal cannula 25 L at 40% FiO2 Will try to wean down oxygen requirement Appreciate help from pulmonology Continue steroids CRP Is normal Hyperglycemia treated with Insulin Monitor closely under telemetry Antihypertensives titrated Continue other supportive therapy including Zinc and vitamin-C Continue Anticoagulation GI/DVT prophylaxis Disposition : Wean down oxygen requirement Awaiting further respiratory recovery Time Spent Managing Pts Care (In Minutes): 42
[2020-07-11 09:48] LABS: Blood Morphology Comment NOT SEEN (NOT SEEN); Platelet Estimate ADEQ
[2020-07-11] MEDS: ALPRAZOLAM 0.25 MG TABLET PO PRN ×2 (09:49→20:23)
--- NOTE | 2020-07-11 10:37 | P.PN ---
Subjective Date of Service: 07/11/20 Chief Complaint: Resp failure Patient is experiencing significant desaturation on minor exertion otherwise feeling well Physical Examination - Vital Signs Temperature: 97.6 F Blood Pressure: 132/94 Pulse: 78 Respirations: 17 Pulse Ox (%): 83 - Studies Medications List Reviewed: Yes Assessment & Plan - Problems (Diagnosis) (1) Pneumonia due to human coronavirus Current Visit: Yes Status: Acute Plan: Respiratory failure gradually improving continue with steroids
--- NOTE | 2020-07-11 11:58 | RAD REPORT ---
EXAM DESCRIPTION: Tracie Single View07/11/2020 10:54 am CLINICAL HISTORY: Chest pain COMPARISON: July 08, 2020 FINDINGS: Development of moderate subcutaneous emphysema along the right and left lateral chest exte nding into the neck No significant change in the diffuse bilateral pulmonary opacities. Heart is normal size IMPRESSION: Development of moderate subcutaneous emphysema along the right and left lateral chest ex tending into the neck Jenny of the emergency room was notified at 11:50 a.m. July 11, 2020
[2020-07-11] MEDS: ATORVASTATIN 40 MG TAB PO SCH (20:21)
[2020-07-11] MEDS: MELATONIN 3 MG TABLET PO SCH (20:21)
[2020-07-12] MEDS: INSULIN -REGULAR HUMAN 50 UNIT/0.5 ML ML SQ SCH ×7 (00:02→23:58)
[2020-07-12] MEDS: METHYLPREDNISOLONE 125 MG INJ IV SCH ×3 (00:54→17:10)
[2020-07-12 05:41] LABS: BUN Blood Urea Nitrogen 20 mg/dL (7-18); Bicarbonate 26 mmol/L (21-32); Ferritin 327.9 ng/mL (8-388); Glucose Level 74 mg/dL (74-106); Sodium Level 143 mmol/L (136-145)
[2020-07-12 05:50] LABS: C-Reactive Protein < 2.90 mg/L (<3.00)
[2020-07-12 06:18] LABS: Absolute Lymphocytes (CBC) 0.6 K/uL (0.7-4.9); Basophils % 0.4 % (0-1.3); Hematocrit 38.5 % (36.0-45.0); MPV 11.4 fL (7.6-11.3); RBC Red Blood Cell Count 4.44 M/uL (3.86-4.86)
--- NOTE | 2020-07-12 06:54 | P.PN ---
Subjective Date of Service: 07/12/20 Chief Complaint: Resp failure Subjective: No new changes Review of Systems 10-point ROS is otherwise unremarkable Physical Examination - Vital Signs Temperature: 97.8 F Blood Pressure: 114/86 Pulse: 82 Respirations: 13 Pulse Ox (%): 96 - Physical Exam General: Alert, In no apparent distress HEENT: Atraumatic, Normocephalic Neck: Supple Respiratory: Diminished, Crackles/rales Cardiovascular: Regular rate/rhythm, Normal S1 S2 Capillary refill: <2 Seconds Gastrointestinal: Soft and benign, W/out hepatosplenomegaly Musculoskeletal: No clubbing, No swelling Integumentary: No rashes, No breakdown Neurological: Normal gait, Normal speech, Normal strength at 5/5 x4 extr Lymphatics: No axilla or inguinal lymphadenopathy - Studies Medications List Reviewed: Yes Assessment & Plan - Problems (Diagnosis) (1) Pneumonia due to COVID-19 virus Current Visit: Yes Status: Acute Physician Review Additional Text: Acute hypoxic respiratory failure Pneumonia due to COVID 19 Hypertension Diabetes Plan No acute events Still on high-flow nasal cannula 25 L at 40% FiO2 Will try to wean down oxygen requirement Appreciate help from pulmonology Continue steroids CRP Is normal Hyperglycemia treated with Insulin Monitor closely under telemetry Antihypertensives titrated Continue other supportive therapy including Zinc and vitamin-C Continue Anticoagulation GI/DVT prophylaxis Disposition : Wean down oxygen requirement Awaiting further respiratory recovery possible Dc home with home O2 in a.m. Time Spent Managing Pts Care (In Minutes): 42
[2020-07-12 07:07] LABS: Blood Morphology Comment NOT SEEN (NOT SEEN); Platelet Estimate ADEQ
[2020-07-12] MEDS: VITAMIN D 1000 UNIT TAB PO SCH (09:14)
[2020-07-12] MEDS: INSULIN 70/30 100 UNITS/ML SQ SCH ×2 (09:14→16:30)
[2020-07-12] MEDS: ALPRAZOLAM 0.25 MG TABLET PO PRN ×2 (09:15→20:11)
[2020-07-12] MEDS: METOPROLOL TAR 25 MG TAB PO SCH ×2 (09:15→20:08)
[2020-07-12] MEDS: GLIPIZIDE S.A. 5 MG TAB PO SCH ×2 (09:15→20:08)
[2020-07-12] MEDS: APIXABAN 5 MG TABLET PO SCH ×2 (09:15→20:08)
[2020-07-12] MEDS: DOCUSATE NA 100 MG CAP PO SCH ×2 (09:23→20:08)
[2020-07-12] MEDS: ASCORBIC ACID 500 MG TABLET PO SCH ×3 (09:23→20:08)
[2020-07-12] MEDS: ZINC SULFATE 220 MG CAP PO SCH ×2 (09:24→20:07)
[2020-07-12] MEDS ORDERED: LORazepam 2 MG/ML VIAL IV PRN (10:28)
[2020-07-12] MEDS: MELATONIN 3 MG TABLET PO SCH (20:07)
[2020-07-12] MEDS: ATORVASTATIN 40 MG TAB PO SCH (20:08)
[2020-07-13] MEDS: METHYLPREDNISOLONE 125 MG INJ IV SCH ×3 (01:23→20:24)
[2020-07-13] MEDS: INSULIN -REGULAR HUMAN 50 UNIT/0.5 ML ML SQ SCH ×6 (04:00→23:46)
[2020-07-13] MEDS: DOCUSATE NA 100 MG CAP PO SCH ×2 (09:15→20:23)
[2020-07-13] MEDS: GLIPIZIDE S.A. 5 MG TAB PO SCH ×2 (09:15→20:23)
[2020-07-13] MEDS: ASCORBIC ACID 500 MG TABLET PO SCH ×3 (09:15→20:23)
[2020-07-13] MEDS: ZINC SULFATE 220 MG CAP PO SCH ×2 (09:15→20:23)
[2020-07-13] MEDS: APIXABAN 5 MG TABLET PO SCH ×2 (09:15→20:23)
[2020-07-13] MEDS: METOPROLOL TAR 25 MG TAB PO SCH ×2 (09:16→20:23)
[2020-07-13] MEDS: VITAMIN D 1000 UNIT TAB PO SCH (09:17)
[2020-07-13] MEDS: INSULIN 70/30 100 UNITS/ML SQ SCH ×2 (09:18→16:47)
--- NOTE | 2020-07-13 12:59 | P.PN ---
Subjective Date of Service: 07/13/20 Chief Complaint: Resp failure Subjective: Improving (reports mild SOB and dizziness when getting out of bed), Other (no chest pain, tolerating diet well, urinating and +BM without issue) Physical Examination - Vital Signs Temperature: 97.0 F Blood Pressure: 130/90 Pulse: 83 Respirations: 16 Pulse Ox (%): 94 - Physical Exam General: Alert, In no apparent distress, Oriented x3 HEENT: EOMI, Sclerae nonicteric Neck: JVD not distended Respiratory: Diminished, Crackles/rales Cardiovascular: Normal S1 S2 (tachycardic) Capillary refill: <2 Seconds Gastrointestinal: Normal bowel sounds, Soft and benign, Non-distended Musculoskeletal: No erythema, No tenderness Integumentary: No rashes, No breakdown Neurological: Normal speech - Studies Medications List Reviewed: Yes Assessment & Plan Discharge Plan: Home (24-48hrs) Physician Review Additional Text: Acute hypoxic respiratory failure Pneumonia due to COVID 19 Hypertension, resolved Diabetes Plan Acute hypoxic respiratory failure Pneumonia due to COVID-19 -weaning oxygen -continues to have some SOB and dizziness when out of bed -O2 sats dropped <80% today when standing at bedside, +mildly symptomatic -continues to improve, likely will need O2 at home -pulm consulted - appreciate assistance, Solumedrol 80 q8 -> BID -continue to monitor on telemetry for now -Continue other supportive therapy including Zinc and vitamin-C -Continue Anticoagulation w/ Eliquis Hyperglycemia, DM2 -insulin, pt may need to go home on 70/30, she lost insurance when lost job due to COVID-19 HTN, resolved -on metoprolol 25mg BID Disposition : Awaiting further respiratory recovery, Possible DC home in 1-2 days. Home O2 ordered. Time Spent Managing Pts Care (In Minutes): 35
[2020-07-13] MEDS: ATORVASTATIN 40 MG TAB PO SCH (20:23)
[2020-07-13] MEDS: MELATONIN 3 MG TABLET PO SCH (20:24)
[2020-07-14] MEDS: INSULIN -REGULAR HUMAN 50 UNIT/0.5 ML ML SQ SCH ×5 (04:00→21:00)
[2020-07-14 05:33] LABS: Hematocrit 39.5 % (36.0-45.0); MPV 9.9 fL (7.6-11.3); RBC Red Blood Cell Count 4.55 M/uL (3.86-4.86)
[2020-07-14 05:48] LABS: BUN Blood Urea Nitrogen 22 mg/dL (7-18); Bicarbonate 30 mmol/L (21-32); Glucose Level 144 mg/dL (74-106); Sodium Level 142 mmol/L (136-145)
[2020-07-14] MEDS: INSULIN 70/30 100 UNITS/ML SQ SCH ×2 (07:30→17:09)
--- NOTE | 2020-07-14 08:15 | RAD REPORT ---
EXAM DESCRIPTION: RAD - Chest Single View - 07/14/2020 6:01 am CLINICAL HISTORY: Chest pain COMPARISON: July 11, 2020 FINDINGS: The subcutaneous emphysema has diminished No significant change in the diffuse bilateral pulmonary opacities Heart is normal size There is an equivocal tiny right pneumothorax IMPRESSION: Subcutaneous emphysema has diminished Equivocal tiny right pneumothorax
[2020-07-14] MEDS: METOPROLOL TAR 25 MG TAB PO SCH ×2 (08:38→20:03)
[2020-07-14] MEDS: VITAMIN D 1000 UNIT TAB PO SCH (08:38)
[2020-07-14] MEDS: GLIPIZIDE S.A. 5 MG TAB PO SCH ×2 (08:38→20:03)
[2020-07-14] MEDS: METHYLPREDNISOLONE 125 MG INJ IV SCH (08:38)
[2020-07-14] MEDS: APIXABAN 5 MG TABLET PO SCH ×2 (08:39→20:03)
[2020-07-14] MEDS: ZINC SULFATE 220 MG CAP PO SCH ×2 (08:39→20:03)
[2020-07-14] MEDS: DOCUSATE NA 100 MG CAP PO SCH ×2 (08:39→20:03)
[2020-07-14] MEDS: ASCORBIC ACID 500 MG TABLET PO SCH ×3 (08:39→20:03)
[2020-07-14] MEDS: METHYLPREDNISOLONE 40 MG INJ IV SCH (20:02)
[2020-07-14] MEDS: MELATONIN 3 MG TABLET PO SCH (20:03)
[2020-07-14] MEDS: ATORVASTATIN 40 MG TAB PO SCH (20:03)
--- NOTE | 2020-07-14 20:46 | P.PN ---
Subjective Date of Service: 07/14/20 Chief Complaint: Resp failure improving, walking around room without dizziness/SOB. Nursing does report patient's SpO2 dropped to mid 60s% when ambulating, but patient felt fine Review of Systems General: Unremarkable Eyes: Unremarkable ENT: Unremarkable Respiratory: Other (mild SOB) Cardiovascular: Unremarkable Gastrointestinal: Unremarkable Genitourinary: Unremarkable Musculoskeletal: Unremarkable Integumentary: Unremarkable Neurological: Unremarkable Physical Examination - Vital Signs Temperature: 98.7 F Blood Pressure: 133/83 Pulse: 109 Respirations: 16 Pulse Ox (%): 95 - Physical Exam General: Alert, In no apparent distress HEENT: Mucous membr. moist/pink, EOMI, Sclerae nonicteric Neck: Supple, JVD not distended Respiratory: Other (breathing comfortably on 2LNC, no tachypnea) Cardiovascular: No edema, Regular rate/rhythm Gastrointestinal: Soft and benign, Non-distended, No tenderness Musculoskeletal: No swelling, No erythema, No tenderness Integumentary: No rashes Neurological: Normal speech, Normal affect - Studies Medications List Reviewed: Yes Assessment & Plan Physician Review Additional Text: Acute hypoxic respiratory failure Pneumonia due to COVID 19 Hypertension, resolved Diabetes Plan Acute hypoxic respiratory failure Pneumonia due to COVID-19 -weaning oxygen -improving, now at 4LNC, no dizziness with ambulating yesterday evening and this morning -continues to improve, will need O2 at home -pulm consulted - appreciate assistance, Solumedrol 80 BID -continue to monitor on telemetry for now -Continue other supportive therapy including Zinc and vitamin-C -Continue Anticoagulation w/ Eliquis Hyperglycemia, DM2 -insulin, pt may need to go home on 70/30, she lost insurance when lost job due to COVID-19 HTN, resolved -on metoprolol 25mg BID Disposition : Awaiting further respiratory recovery, likely DC home in AM Time Spent Managing Pts Care (In Minutes): 35
[2020-07-15] MEDS: INSULIN -REGULAR HUMAN 50 UNIT/0.5 ML ML SQ SCH ×5 (04:00→16:00)
[2020-07-15 05:34] VITALS: TEMP 97.9
[2020-07-15] MEDS: METHYLPREDNISOLONE 40 MG INJ IV SCH (08:18)
[2020-07-15] MEDS: ZINC SULFATE 220 MG CAP PO SCH (08:18)
[2020-07-15] MEDS: DOCUSATE NA 100 MG CAP PO SCH (08:18)
[2020-07-15] MEDS: GLIPIZIDE S.A. 5 MG TAB PO SCH (08:18)
[2020-07-15] MEDS: VITAMIN D 1000 UNIT TAB PO SCH (08:18)
[2020-07-15] MEDS: ASCORBIC ACID 500 MG TABLET PO SCH ×2 (08:18→14:29)
[2020-07-15] MEDS: METOPROLOL TAR 25 MG TAB PO SCH (08:19)
[2020-07-15] MEDS: APIXABAN 5 MG TABLET PO SCH (08:20)
[2020-07-15] MEDS: INSULIN 70/30 100 UNITS/ML SQ SCH ×2 (08:21→16:38)
[2020-07-15 08:22] VITALS: BP 114/76
[2020-07-15 08:59] LABS: Ferritin 214.7 ng/mL (8-388)
[2020-07-15 09:02] LABS: C-Reactive Protein < 2.90 mg/L (<3.00)
[2020-07-15 09:59] VITALS: O2SAT 93
--- NOTE | 2020-07-15 11:09 | P.DS ---
Admission Date: 06/29/20 Discharge Date: 07/15/20 Disposition: ROUTINE DISCHARGE Discharge Condition: GOOD Reason for Admission: Resp failure Consultations: Pulmonology - Dr. Villagran Procedures: Chest Single View - 06/29/2020 6:54 am FINDINGS: Moderately severe bilateral pulmonary opacities are present likely representing pneumonia. The heart is normal in size. No displaced fractures. CT angiogram of the pulmonary arteries was performed with MIP. IMPRESSION: No evidence of pulmonary thromboembolism. Extensive bilateral alveolar lung opacities are present most likely representing bilateral pneumonia. TTE 07/06/20: COMMENTS: ONLY SUBCOSTAL VIEWS ARE OBSTAINED. VERY LIMITED STUDY. LEFT VENTRICULAR APPEARS TO BE NORMAL, BUT THIS LIMITED STUDY, RECOMMEND REPEAT FULL ECHO WITH CONTRAST. 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 She states a week later when she was coming back for follow-up to get stitches removed she was feeling short of breath. She had other family members at that time that tested positive for COVID-19. She continued to feel febrile and weak. She started having upper respiratory symptoms so she came to the hospital today. In the emergency room she was found have COVID-[address] scan did not reveal any pulmonary embolism. She requiring 100% non-rebreather and maintaining sats of 93-94%. She will probably benefit from high-flow oxygen. She may also benefit for BiPAP support. Hospital Course: Patient was admitted to the ICU for further management of COVID-19 pneumonia. There, she required multiple days of supportive treatment with oxygen, steroids, and received convalescent plasma. Throughout her hospitalization, the patient's oxygen requirement slowly decreased. Towards the end of her hospitalization, patient was feeling significantly better, no longer SOB at rest, and was able to walk around part of the ICU with only mild SCHMID that resolved within seconds of rest even though her SpO2 during these times would drop to 60-70%. On day of discharge, patient was breathing comfortably on 3 L NC and would maintain SpO2>88% when ambulating around her room. During her hospitalization patient was noted at times to have Glc >400 likely due to steroids and some component of diabetes. She required insulin to maintain glc <200 She was discharged home with 2 week taper of Prednisone, Insulin 70/30 (no insurance), and Aspirin. She is to f/u with PCP regarding hyperglycemia/DM2 and Dr. Villagran next week for telephone f/u visit. Vital Signs/Physical Exam: Temp Pulse Resp BP Pulse Ox 97.9 F 83 16 114/76 95 07/15/20 04:00 07/15/20 08:19 07/15/20 06:00 07/15/20 08:19 07/15/20 06:00 General: Alert, In no apparent distress HEENT: Atraumatic, PERRLA, EOMI Neck: Supple, JVD not distended Respiratory: Clear to auscultation bilaterally, Normal air movement, Other (non-labored on 3L NC.) Cardiovascular: Regular rate/rhythm, Normal S1 S2 Capillary refill: <2 Seconds Gastrointestinal: Normal bowel sounds, No tenderness Musculoskeletal: No tenderness Integumentary: No rashes Neurological: Normal speech, Normal affect Laboratory Data at Discharge: WBC 19.3 K/uL (4.3-10.9) H 07/14/20 04:52 Hgb 13.5 g/dL (12.0-15.0) 07/14/20 04:52 Hct 39.5 % (36.0-45.0) 07/14/20 04:52 Plt Count 301 K/uL (152-406) 07/14/20 04:52 PT 14.1 SECONDS (9.5-12.5) H 06/29/20 06:30 INR 1.20 06/29/20 06:30 APTT 25.5 SECONDS (24.3-36.9) 06/29/20 06:30 Sodium 142 mmol/L (136-145) 07/14/20 04:52 Potassium 4.0 mmol/L (3.5-5.1) 07/14/20 04:52 BUN 22 mg/dL (7-18) H 07/14/20 04:52 Creatinine 0.57 mg/dL (0.55-1.3) 07/14/20 04:52 Glucose 144 mg/dL (74-106) H 07/14/20 04:52 Phosphorus 4.6 mg/dL (2.5-4.9) 07/03/20 05:16 Magnesium 1.9 mg/dL (1.8-2.4) 07/08/20 04:54 Total Bilirubin 0.5 mg/dL (0.2-1.0) 07/11/20 07:45 AST 12 U/L (15-37) L 07/11/20 07:45 ALT 41 U/L (12-78) 07/11/20 07:45 Alkaline Phosphatase 114 U/L (45-117) 07/11/20 07:45 Troponin I < 0.02 ng/mL (0.0-0.045) 06/30/20 04:46 Amylase 37 U/L (25-115) 06/29/20 06:30 Lipase 157 U/L (73-393) 06/29/20 06:30 Home Medications: Glipizide [Glipizide ER] 10 mg PO BID 05/28/19 Metformin HCl [Metformin ER Osmotic] 1,000 mg PO BID 05/28/19 lisinopriL [Lisinopril] 1 tab PO DAILY 04/10/20 Aspirin [Aspirin EC 325 MG] 325 mg PO DAILY 30 Days #30 tablet. 07/14/20 Insulin 70/30 NPH/Reg Human [Novolin 70/30*] 10 unit SQ BIDAC #1 vial 07/14/20 predniSONE [Prednisone] 20 mg PO DIRECTED 14 Days #21 tablet 07/14/20 New Medications: Aspirin [Aspirin EC 325 MG] 325 mg PO DAILY 30 Days #30 tablet. Insulin 70/30 NPH/Reg Human [Novolin 70/30*] 10 unit SQ BIDAC #1 vial predniSONE [Prednisone] 20 mg PO DIRECTED 14 Days #21 tablet Patient Discharge Instructions: follow up with PCP within 1 week. follow up with Dr. Oseas Villagran (pulmonology). Check fasting blood sugar in morning Diet: ADA Activity: Ad saúl Followup: Oseas Villagran MD [ACTIVE - CAN ADMIT] - Time spent managing pt's care (in minutes): 45
--- NOTE | 2020-07-15 11:41 | P.PN ---
Subjective Date of Service: 07/15/20 Chief Complaint: Pérez virus pneumonia Patient is doing much better now on nasal cannula oxygen no evidence of desaturation is feeling better Review of Systems General: Weakness Respiratory: Shortness of Breath Physical Examination - Vital Signs Temperature: 97.9 F Blood Pressure: 114/76 Pulse: 83 Respirations: 16 Pulse Ox (%): 95 - Studies Medications List Reviewed: Yes Assessment & Plan - Problems (Diagnosis) (1) Pneumonia due to human coronavirus Current Visit: Yes Status: Acute Plan: Patient has respiratory failure from pérez virus has improved significantly non nasal cannula oxygen plan to discharge continue with prednisone 20 mg twice a day for a week then 10 mg twice a day multi vitamin supplement telephone visit with the next week
== END 2020-07-15 17:00 | disposition home or self-care (01) | DRG 177 ==
LOC: ER 05:41 → 3RD-ICU 13:23
PROVIDERS: ADMIT Hospitalist; ATTEND Hospitalist
PROC: 30233K1 Transfusion of Nonautologous Frozen Plasma into Peripheral Vein, Percutaneous Approach (ICD-10-PCS; principal; 2020-07-02)
DX: U07.1 COVID-19 (principal); J12.89 Other viral pneumonia; J96.01 Acute respiratory failure with hypoxia; L03.90 Cellulitis, unspecified; I10 Essential (primary) hypertension; E87.6 Hypokalemia; E11.65 Type 2 diabetes mellitus with hyperglycemia; E11.621 Type 2 diabetes mellitus with foot ulcer; L97.509 Non-pressure chronic ulcer of other part of unspecified foot with unspecified severity; Z89.439 Acquired absence of unspecified foot; Z79.84 Long term (current) use of oral hypoglycemic drugs
CPT/HCPCS: 36415; 71045; 71275; 80048; 80053; 80076; 81003; 81015; 82150; 82306; 82550; 82553; 82728; 82947; 83605; 83615; 83690; 83735; 83880; 84100; 84132; 84145; 84439; 84443; 84484; 85025; 85027; 85379; 85610; 85730; 86140; 87040; 87081; 87804; 93005; 93306; 94660; 96365; 96367; 96375; 99291; 99292; J0456; J0696; J1650; J1815; J1940; J2270; J2920; J2930; J3475; J3480; J7030; J7050; Q9967

== ENCOUNTER 2022-04-29 19:27 | Emergency (ER) | payer SELFPAY ==
--- OUTSIDE RECORDS SUMMARY | 2022-04-29 19:34 | XMS REPORT | Continuity of Care Document ---
:1980 Author Organization [facility] t Address [address] [place] [place] [address] Care Team Providers Name Role Phone PCP, DOES NOT HAVE A Primary Care Physician Unavailable Savanah Mclain Attending Clinician Unavailable EDDOC, FOR EDM Attending Clinician Unavailable Lora CUI Attending Clinician Unavailable Lora Cui DO Attending Clinician DONIS Attending Clinician Unavailable Donis RICHARDS Attending Clinician Doctor Unassigned, Name Attending Clinician Unavailable CAMILLA Attending Clinician Unavailable CAMILLA Attending Clinician Unavailable Arun Jim DO Attending Clinician Camilla MACIAS Attending Clinician VIOLETTA QUINTERO Attending Clinician Unavailable Violetta Quintero MD Attending Clinician Rm, Surg Spec Procedure Attending Clinician Unavailable Jessica Herr Admitting Clinician Unavailable Physician, Primary or Family Admitting Clinician UnavailLora Chávez Admitting Clinician Unavailable Payers Payer Name Policy Type Policy Number Effective Date Expiration Date Sugar COLLAZO II [id number] 2016 00:00:00 Problems Condition Condition Condition Status Onset Resolution Last Treating Co mments Source Name Details Category Date Date Treatment Clinician Date Well woman Well woman Disease Active 2016-11 U nivers exam with exam with 0-12 ity of routine routine 00:00: [place] gynecologi gynecologi 00 Me dical kellie exam kellie exam Branch Uncontroll Uncontroll Disease Active 2016-11 U chace ed type 2 ed type 2 0-12 ity of diabetes diabetes 00:00: [place] mellitus mellitus 00 Medica l without without Branch complicati complicati on, on, without without long-term long-term current current use of use of insulin insulin BMI BMI Disease Active 2016-11 Univers 33.0-33.9, 33.0-33.9, 0-12 it y of adult adult 00:00: [place] 00 Medical Branch Morbid Morbid Disease Active 2016-11 Univers obesity obesity 0-12 ity of 00:00: [place] 00 Medical Branch Diabetes Diabetes Disease Active 2013-11 Overview: Un irais mellitus mellitus 2-03 Formattin ity of type 2, type 2, 00:00: g of this [place] uncontroll uncontroll 00 note Me dical ed, ed, might be Branch without without different complicati complicati from the ons ons original. 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 Elevated Elevated Disease Active 2013-11 Unive rs blood blood - ity of pressure pressure 00:00: [place] reading reading 00 Medical without without Branch diagnosis diagnosis of of hypertensi hypertensi on on Dysmenorrh Dysmenorrh Disease Active 2013-11 U chace ea ea - ity of 00:00: [place] 00 Medical Branch Allergies, Adverse Reactions, Alerts Allergy Allergy Status Severity Reaction(s) Onset Inactive Treating Comm ents Source Name Type Date Date Clinician No Known DA Active U [facility] Allergie - Clear s 00:00: [place] 00 [facility] NO KNOWN Drug Active Univers ALLERGIE Class ity of S [facility] Social History Social Habit Start Date Stop Date Quantity Comments Source Exposure to Not sure [place] of SARS-CoV-2 [place] Medical (event) Branch History of Smoker University of tobacco use [facility] Alcohol intake 2020-11-26 2020-11-26 Current University 00:00:00 00:00:00 non-drinker of [facility] alcohol Branch (finding) Tobacco use and 2020-08-21 2020-08-21 Never used Universit y of exposure 00:00:00 00:00:00 [facility] Sex [birth year] At [birth year] Universit y of 00:00:00 00:00:00 [facility] Smoking Status Start Date Stop Date Source Former smoker 2020-08-21 00:00:00 2020-08-21 00:00:00 Universi ty of [facility] Never smoker [facility] Medications Ordered Filled Start Stop Current Ordering Indication Dosage Frequency Signature Comments Components Source Medication Medication Date Date Medication? Clinician (SIG) Name Name metformin 2021- No 1000mg Take 1,000 Univers HCl -17 12- mg by ity of (METFORMIN 14:49: 00:00 mouth 2 Justin as ORAL) 01 :00 (two) Medical times Branch daily. glipiZIDE 2021- No 10mg Take 10 mg U nivers 10 mg 12-17 by mouth 2 ity of tablet 14:49: 00:00 (two) [place] 01 :00 times Medical daily Branch before breakfast and dinner. glipiZIDE Yes [id number] 10mg Take 1 Un irais 10 mg - tablet by ity of tablet 00:00: mouth 2 [place] (two) Medical times Branch daily before breakfast and dinner. metFORMIN Yes [id number] 500mg Take 1 U nivers 500 mg - tablet by ity of tablet 00:00: mouth 2 [place] (two) Medical times Branch daily. insulin NPH 2021- No [id number] 10U inject 10 Univers and regular -17 01- Units ity of human 70-30 00:00: 05:59 under the [place] 100 unit/mL 00 :00 skin 2 Medica l (70-30) (two) Branch injection times daily before breakfast and dinner for 30 days. clindamycin 2021- No [id number] 450mg Take 3 Univers 150 mg 11-28 [id number] capsules ity of capsule 00:00: 05:59 by mouth 3 [place] as 00 :00 (three) Medical times Branch daily for 7 days. ALBUTEROL 2019-11 Yes 1{puff} Inhale 1 U nivers INHALE 0-16 Puff. ity of 16:02: [address] metformin 2019- Yes 1000mg Take 1,000 Univers HCl 0-16 mg by ity of (METFORMIN 16:02: [place] (two) Medical times Branch daily. glipiZIDE 2019-11 Yes 10mg Take 10 mg Un [place]ais 10 mg 0-16 by mouth 2 ity of tablet 16:02: (two) [place] [address] times Medical daily Branch before breakfast and dinner. lisinopriL 2019- Yes 10mg Take 10 mg U nivers 10 mg 0-16 by mouth ity of tablet 16:02: daily. [address] Branch aspirin 325 2019-11 Yes 325mg Take 325 U nivers mg tablet 0-16 mg by ity of 16:02: mouth [place] 58 daily. Medical Branch ALBUTEROL 2019-11 Yes 1{puff} Inhale 1 U nivers INHALE 0-16 Puff. ity of 16:02: [address] metformin 2019-11 Yes 1000mg Take 1,000 Univers HCl 0-16 mg by ity of (METFORMIN 16:02: [place] (two) Medical times Branch daily. glipiZIDE 2019-11 Yes 10mg Take 10 mg [place] 10 mg 0-16 by mouth 2 ity of tablet 16:02: (two) [place] [address] times Medical daily Branch before breakfast and dinner. lisinopriL 2019-11 Yes 10mg Take 10 mg U nivers 10 mg 0-16 by mouth ity of tablet 16:02: daily. [address] aspirin 325 2019- Yes 325mg Take 325 U nivers mg tablet 0-16 mg by ity of 16:02: mouth [place] 58 daily. Medical Branch ALBUTEROL 2019-11 Yes 1{puff} Inhale 1 U nivers INHALE 0-16 Puff. ity of 16:02: [address] metformin 2019- Yes 1000mg Take 1,000 Univers HCl 0-16 mg by ity of (METFORMIN 16:02: [place] (two) Medical times Branch daily. glipiZIDE 2019- Yes 10mg Take 10 mg [place] 10 mg 0-16 by mouth 2 ity of tablet 16:02: (two) [place] [address] times Medical daily Branch before breakfast and dinner. lisinopriL 2019- Yes 10mg Take 10 mg U nivers 10 mg 0-16 by mouth ity of tablet 16:02: daily. [address] Branch aspirin 325 2019- Yes 325mg Take 325 U nivers mg tablet 0-16 mg by ity of 16:02: mouth [place] 58 daily. Medical Branch ALBUTEROL 2019- Yes 1{puff} Inhale 1 U nivers INHALE 0-16 Puff. ity of 16:02: [address] Branch metformin 2019- Yes 1000mg Take 1,000 Univers HCl 0-16 mg by ity of (METFORMIN 16:02: [place] 2 [place] (two) Medical times Branch daily. glipiZIDE 2019-11 Yes 10mg Take 10 mg [place] 10 mg 0-16 by mouth 2 ity of tablet 16:02: (two) [address] Medical daily Branch before breakfast and dinner. lisinopriL 2019-11 Yes 10mg Take 10 mg U nivers 10 mg 0-16 by mouth ity of tablet 16:02: daily. [address] Branch aspirin 325 2019-11 Yes 325mg Take 325 U nivers mg tablet 0-16 mg by ity of 16:02: mouth [place] 58 daily. Medical Branch ALBUTEROL 2019-11 Yes 1{puff} Inhale 1 U nivers INHALE 0-16 Puff. ity of 16:02: [address] metformin 2019- Yes 1000mg Take 1,000 Univers HCl 0-16 mg by ity of (METFORMIN 16:02: [place] 2 [place] (two) Medical times Branch daily. glipiZIDE 2019-11 Yes 10mg Take 10 mg [place] 10 mg 0-16 by mouth 2 ity of tablet 16:02: (two) [place] [address] times Medical daily Branch before breakfast and dinner. lisinopriL 2019-11 Yes 10mg Take 10 mg U nivers 10 mg 0-16 by mouth ity of tablet 16:02: daily. [address] Branch aspirin 325 2019- Yes 325mg Take 325 U nivers mg tablet 0-16 mg by ity of 16:02: mouth [place] 58 daily. Medical Branch ALBUTEROL 2019-11 Yes 1{puff} Inhale 1 U nivers INHALE 0-16 Puff. ity of 16:02: [address] Branch metformin 2019- Yes 1000mg Take 1,000 Univers HCl 0-16 mg by ity of (METFORMIN 16:02: [place] 2 [place] (two) Medical times Branch daily. glipiZIDE 2019-11 Yes 10mg Take 10 mg [place] 10 mg 0-16 by mouth 2 ity of tablet 16:02: (two) [place] [address] times Medical daily Branch before breakfast and dinner. lisinopriL 2019-11 Yes 10mg Take 10 mg U nivers 10 mg 0-16 by mouth ity of tablet 16:02: daily. [address] Branch aspirin 325 2019- Yes 325mg Take 325 U nivers mg tablet 0-16 mg by ity of 16:02: mouth [place] 58 daily. Medical Branch ALBUTEROL 2019-11 Yes 1{puff} Inhale 1 U nivers INHALE 0-16 Puff. ity of 16:02: [address] metformin 2019-11 Yes 1000mg Take 1,000 Univers HCl 0-16 mg by ity of (METFORMIN 16:02: mouth 2 [place] (two) Medical times Branch daily. glipiZIDE 2019-11 Yes 10mg Take 10 mg [place] 10 mg 0-16 by mouth 2 ity of tablet 16:02: (two) [place] [address] times Medical daily Branch before breakfast and dinner. lisinopriL 2019- Yes 10mg Take 10 mg U nivers 10 mg 0-16 by mouth ity of tablet 16:02: daily. [address] Branch aspirin 325 2019- Yes 325mg Take 325 U nivers mg tablet 0-16 mg by ity of 16:02: mouth [place] 58 daily. Medical Branch ALBUTEROL 2019- Yes 1{puff} Inhale 1 U nivers INHALE 0-16 Puff. ity of 16:02: [address] Branch metformin 2019- Yes 1000mg Take 1,000 Univers HCl 0-16 mg by ity of (METFORMIN 16:02: mouth 2 [place] (two) Medical times Branch daily. glipiZIDE 2019- Yes 10mg Take 10 mg [place] 10 mg 0-16 by mouth 2 ity of tablet 16:02: (two) [address] Medical daily Branch before breakfast and dinner. lisinopriL 2019- Yes 10mg Take 10 mg U nivers 10 mg 0-16 by mouth ity of tablet 16:02: daily. [address] Branch aspirin 325 2019- Yes 325mg Take 325 U nivers mg tablet 0-16 mg by ity of 16:02: mouth [place] 58 daily. Medical Branch ALBUTEROL 2019- Yes 1{puff} Inhale 1 U nivers INHALE 0-16 Puff. ity of 16:02: [address] Branch metformin 2020- Yes 1000mg Take 1,000 Univers HCl 0-16 mg by ity of (METFORMIN 16:02: mouth 2 [place] (two) Medical times Branch daily. glipiZIDE 2019-11 Yes 10mg Take 10 mg [place] 10 mg 0-16 by mouth 2 ity of tablet 16:02: (two) [address] Medical daily Branch before breakfast and dinner. lisinopriL 2019-11 Yes 10mg Take 10 mg U nivers 10 mg 0-16 by mouth ity of tablet 16:02: daily. [address] aspirin 325 2019-11 Yes 325mg Take 325 U nivers mg tablet 0-16 mg by ity of 16:02: mouth [place] 58 daily. Medical Branch ALBUTEROL 2019-11 Yes 1{puff} Inhale 1 U nivers INHALE 0-16 Puff. ity of 16:02: [address] metformin 2019- Yes 1000mg Take 1,000 Univers HCl 0-16 mg by ity of (METFORMIN 16:02: mouth 2 [place] (two) Medical times Branch daily. glipiZIDE 2019- Yes 10mg Take 10 mg [place] 10 mg 0-16 by mouth 2 ity of tablet 16:02: (two) [address] Medical daily Branch before breakfast and dinner. lisinopriL 2019- Yes 10mg Take 10 mg U nivers 10 mg 0-16 by mouth ity of tablet 16:02: daily. [address] aspirin 325 2019- Yes 325mg Take 325 U nivers mg tablet 0-16 mg by ity of 16:02: mouth [place] 58 daily. Medical Branch ALBUTEROL 2019-11 Yes 1{puff} Inhale 1 U nivers INHALE 0-16 Puff. ity of 11:02: [address] Branch metformin 2019- Yes 1000mg Take 1,000 Univers HCl 0-16 mg by ity of (METFORMIN 11:02: mouth 2 [place] 58 (two) Medical times Branch daily. glipiZIDE 2019-11 Yes 10mg Take 10 mg [place] 10 mg 0-16 by mouth 2 ity of tablet 11:02: (two) [place] [address] times Medical daily Branch before breakfast and dinner. lisinopriL 2019-11 Yes 10mg Take 10 mg U nivers 10 mg 0-16 by mouth ity of tablet 11:02: daily. [address] Branch aspirin 325 2019-11 Yes 325mg Take 325 U nivers mg tablet 0-16 mg by ity of 11:02: mouth [place] 58 daily. Medical Branch ALBUTEROL 2019-11 Yes 1{puff} Inhale 1 U nivers INHALE 0-16 Puff. ity of 11:02: [address] metformin 2019-11 Yes 1000mg Take 1,000 Univers HCl 0-16 mg by ity of (METFORMIN 11:02: mouth 2 [place] (two) Medical times Branch daily. glipiZIDE 2019-11 Yes 10mg Take 10 mg [place] 10 mg 0-16 by mouth 2 ity of tablet 11:02: (two) [address] Medical daily Branch before breakfast and dinner. lisinopriL 2019-11 Yes 10mg Take 10 mg U nivers 10 mg 0-16 by mouth ity of tablet 11:02: daily. [address] Branch aspirin 325 2019-11 Yes 325mg Take 325 U nivers mg tablet 0-16 mg by ity of 11:02: mouth [place] 58 daily. Medical Branch ALBUTEROL 2019-11 Yes 1{puff} Inhale 1 U nivers INHALE 0-16 Puff. ity of 11:02: [address] Branch lisinopriL 2019-11 Yes 10mg Take 10 mg U nivers 10 mg 0-16 by mouth ity of tablet 11:02: daily. [address] aspirin 325 2019-11 Yes 325mg Take 325 U nivers mg tablet 0-16 mg by ity of 11:02: mouth [place] 58 daily. Medical Branch glipiZIDE 2019-11 Yes 10mg Take 10 mg [place] 10 mg 0-02 by mouth 2 ity of tablet 16:46: (two) [address] Medical daily Branch before breakfast and dinner. lisinopriL 2019-11 Yes 10mg Take 10 mg U nivers 10 mg 0-02 by mouth ity of tablet 16:46: daily. [address] Branch aspirin 325 2019- Yes 325mg Take 325 U nivers mg tablet 0-02 mg by ity of 16:46: mouth [place] [address] daily. Medical Branch glipiZIDE 2019-11 Yes 10mg Take 10 mg [place] 10 mg 0-02 by mouth 2 ity of tablet 16:46: (two) [address] Medical daily Branch before breakfast and dinner. lisinopriL 2019-11 Yes 10mg Take 10 mg U nivers 10 mg 0-02 by mouth ity of tablet 16:46: daily. [address] Branch aspirin 325 2019- Yes 325mg Take 325 U nivers mg tablet 0-02 mg by ity of 16:46: mouth [place] [address] daily. Medical Branch glipiZIDE 2019-11 Yes 10mg Take 10 mg [place] 10 mg 0-02 by mouth 2 ity of tablet 16:46: (two) [address] Medical daily Branch before breakfast and dinner. lisinopriL 2019-11 Yes 10mg Take 10 mg U nivers 10 mg 0-02 by mouth ity of tablet 16:46: daily. [address] Branch aspirin 325 2019-11 Yes 325mg Take 325 U nivers mg tablet 0-02 mg by ity of 16:46: mouth [place] [address] daily. Medical Branch ALBUTEROL 2019-11 Yes 1{puff} Inhale 1 U nivers INHALE 0-02 Puff. ity of 16:46: [address] Branch metformin 2019- Yes 1000mg Take 1,000 Univers HCl 0-02 mg by ity of (METFORMIN 16:46: mouth 2 [place] 16 (two) Medical times Branch daily. ALBUTEROL 2019-11 Yes 1{puff} Inhale 1 U nivers INHALE 0-02 Puff. ity of 16:46: [address] Branch metformin 2019- Yes 1000mg Take 1,000 Univers HCl 0-02 mg by ity of (METFORMIN 16:46: mouth 2 [place] 16 (two) Medical times Branch daily. ALBUTEROL 2019-11 Yes 1{puff} Inhale 1 U nivers INHALE 0-02 Puff. ity of 16:46: [place] 16 Medical Branch metformin 2020- Yes 1000mg Take 1,000 Univers HCl 0-02 mg by ity of (METFORMIN 16:46: mouth 2 [place]AL[place] 16 (two) Medical times Branch daily. fluticasone 2019- Yes [id number] 1{puff} Inhale 1 Univers propion-rowena 0-02 Puff 2 ity of meteroL 00:00: (two) [place] (AIRDUO 00 times Medical RESPICLICK) daily. Branch 113-14 mcg/actuati on AePB fluticasone 2020- Yes [id number] 1{puff} Inhale 1 Univers propion-rowena 0-02 Puff 2 ity of meteroL 00:00: (two) [place] (AIRDUO 00 times Medical RESPICLICK) daily. Branch 113-14 mcg/actuati on AePB fluticasone 2020- Yes [id number] 1{puff} Inhale 1 Univers propion-rowena 0-02 Puff 2 ity of meteroL 00:00: (two) [place] (AIRDUO 00 times Medical RESPICLICK) daily. Branch 113-14 mcg/actuati on AePB fluticasone 2020- Yes [id number] 1{puff} Inhale 1 Univers propion-rowena 0-02 Puff 2 ity of meteroL 00:00: (two) [place] (AIRDUO 00 times Medical RESPICLICK) daily. Branch 113-14 mcg/actuati on AePB fluticasone 2020- Yes [id number] 1{puff} Inhale 1 Univers propion-rowena 0-02 Puff 2 ity of meteroL 00:00: (two) [place] (AIRDUO 00 times Medical RESPICLICK) daily. Branch 113-14 mcg/actuati on AePB fluticasone 2020- Yes [id number] 1{puff} Inhale 1 Univers propion-rowena 0-02 Puff 2 ity of meteroL 00:00: (two) [place] (AIRDUO 00 times Medical RESPICLICK) daily. Branch 113-14 mcg/actuati on AePB fluticasone 2020- Yes [id number] 1{puff} Inhale 1 Univers propion-rowena 0-02 Puff 2 ity of meteroL 00:00: (two) [place] (AIRDUO 00 times Medical RESPICLICK) daily. Branch 113-14 mcg/actuati on AePB fluticasone 2020-1 Yes [id number] 1{puff} Inhale 1 Univers propion-rowena 0-02 Puff 2 ity of meteroL 00:00: (two) [place] (AIRDUO 00 times Medical RESPICLICK) daily. Branch 113-14 mcg/actuati on AePB fluticasone 2020-1 Yes [id number] 1{puff} Inhale 1 Univers propion-rowena 0-02 Puff 2 ity of meteroL 00:00: (two) [place] (AIRDUO 00 times Medical RESPICLICK) daily. Branch 113-14 mcg/actuati on AePB fluticasone 2020-1 Yes [id number] 1{puff} Inhale 1 Univers propion-rowena 0-02 Puff 2 ity of meteroL 00:00: (two) [place] (AIRDUO 00 times Medical RESPICLICK) daily. Branch 113-14 mcg/actuati on AePB fluticasone 2020-1 Yes [id number] 1{puff} Inhale 1 Univers propion-rowena 0-02 Puff 2 ity of meteroL 00:00: (two) [place] (AIRDUO 00 times Medical RESPICLICK) daily. Branch 113-14 mcg/actuati on AePB fluticasone 2020-1 Yes [id number] 1{puff} Inhale 1 Univers propion-rowena 0-02 Puff 2 ity of meteroL 00:00: (two) [place] (AIRDUO 00 times Medical RESPICLICK) daily. Branch 113-14 mcg/actuati on AePB fluticasone 2020-1 Yes [id number] 1{puff} Inhale 1 Univers propion-rowena 0-02 Puff 2 ity of meteroL 00:00: (two) [place] (AIRDUO 00 times Medical RESPICLICK) daily. Branch 113-14 mcg/actuati on AePB fluticasone 2020-1 Yes [id number] 1{puff} Inhale 1 Univers propion-rowena 0-02 Puff 2 ity of meteroL 00:00: (two) [place] (AIRDUO 00 times Medical RESPICLICK) daily. Branch 113-14 mcg/actuati on AePB fluticasone 2020- Yes [id number] 1{puff} Inhale 1 Univers propion-rowena 0-02 Puff 2 ity of meteroL 00:00: (two) [place] (AIRDUO 00 times Medical RESPICLICK) daily. Branch 113-14 mcg/actuati on AePB fluticasone 2020-1 Yes [id number] 1{puff} Inhale 1 Univers propion-rowena 0-02 Puff 2 ity of meteroL 00:00: (two) [place] (AIRDUO 00 times Medical RESPICLICK) daily. Branch 113-14 mcg/actuati on AePB No known No Univers medications ity of [facility] Immunizations Ordered Filled Immunization Date Status Comments [facility] e Immunization Name Name MMR 2014-10-22 Completed University of 00:00:00 [facility] MMR 2014-10-22 Completed University of 00:00:00 [facility] MMR 2014-10-22 Completed University of 00:00:00 [facility] MMR 2014-10-22 Completed University of 00:00:00 [facility] MMR 2014-10-22 Completed University of 00:00:00 [facility] MMR 2014-10-22 Completed University of 00:00:00 [facility] MMR 2014-10-22 Completed University of 00:00:00 [facility] MMR 2014-10-22 Completed University of 00:00:00 [facility] MMR 2014-10-22 Completed University of 00:00:00 [facility] MMR 2014-10-22 Completed University of 00:00:00 [facility] MMR 2014-10-22 Completed University of 00:00:00 [facility] MMR 2014-10-22 Completed University of 00:00:00 [facility] MMR 2014-10-22 Completed University of 00:00:00 [facility] MMR 2014-10-22 Completed University of 00:00:00 [facility] MMR 2014-10-22 Completed University of 00:00:00 [facility] MMR 2014-10-22 Completed University of 00:00:00 [facility] MMR 2014-10-22 Completed University of 00:00:00 [facility] Influenza Virus 2011-11-22 Completed Universit y of Vaccine 00:00:00 [facility] Pneumococcal 2011-11-22 Completed University o f Polysaccharide, 00:00:00 [place] Med ical PPSV23 (PNEUMOVAX) Branch Influenza Virus 2011-11-22 Completed Universit y of Vaccine 00:00:00 [facility] Pneumococcal 2011-11-22 Completed University o f Polysaccharide, 00:00:00 [place] Med ical PPSV23 (PNEUMOVAX) Branch Influenza Virus 2011-11-22 Completed Universit y of Vaccine 00:00:00 [facility] Pneumococcal 2011-11-22 Completed University o f Polysaccharide, 00:00:00 [place] Med ical PPSV23 (PNEUMOVAX) Branch Influenza Virus 2011-11-22 Completed Universit y of Vaccine 00:00:00 [facility] Pneumococcal 2011-11-22 Completed University o f Polysaccharide, 00:00:00 [place] Med ical PPSV23 (PNEUMOVAX) Branch Influenza Virus 2011-11-22 Completed Universit y of Vaccine 00:00:00 [facility] Pneumococcal 2011-11-22 Completed University o f Polysaccharide, 00:00:00 [place] Med ical PPSV23 (PNEUMOVAX) Branch Influenza Virus 2011-11-22 Completed Universit y of Vaccine 00:00:00 [facility] Pneumococcal 2011-11-22 Completed University o f Polysaccharide, 00:00:00 [place] Med ical PPSV23 (PNEUMOVAX) Branch Influenza Virus 2011-11-22 Completed Universit y of Vaccine 00:00:00 [facility] Influenza Virus 2011-11-22 Completed Universit y of Vaccine 00:00:00 [facility] Pneumococcal 2011-11-22 Completed University o f Polysaccharide, 00:00:00 [place] Med ical PPSV23 (PNEUMOVAX) Branch Pneumococcal 2011-11-22 Completed University o f Polysaccharide, 00:00:00 [place] Med ical PPSV23 (PNEUMOVAX) Branch Influenza Virus 2011-11-22 Completed Universit y of Vaccine 00:00:00 [facility] Pneumococcal 2011-11-22 Completed University o f Polysaccharide, 00:00:00 [place] Med ical PPSV23 (PNEUMOVAX) Branch Influenza Virus 2011-11-22 Completed Universit y of Vaccine 00:00:00 [facility] Pneumococcal 2011-11-22 Completed University o f Polysaccharide, 00:00:00 [place] Med ical PPSV23 (PNEUMOVAX) Branch Influenza Virus 2011-11-22 Completed Universit y of Vaccine 00:00:00 [facility] Pneumococcal 2011-11-22 Completed University o f Polysaccharide, 00:00:00 [place] Med ical PPSV23 (PNEUMOVAX) Branch Influenza Virus 2011-11-22 Completed Universit y of Vaccine 00:00:00 [facility] Pneumococcal 2011-11-22 Completed University o f Polysaccharide, 00:00:00 [place] Med ical PPSV23 (PNEUMOVAX) Branch Influenza Virus 2011-11-22 Completed Universit y of Vaccine 00:00:00 [facility] Pneumococcal 2011-11-22 Completed University o f Polysaccharide, 00:00:00 [place] Med ical PPSV23 (PNEUMOVAX) Branch Influenza Virus 2011-11-22 Completed Universit y of Vaccine 00:00:00 [facility] Pneumococcal 2011-11-22 Completed University o f Polysaccharide, 00:00:00 [place] Med ical PPSV23 (PNEUMOVAX) Branch Influenza Virus 2011-11-22 Completed Universit y of Vaccine 00:00:00 [facility] Pneumococcal 2011-11-22 Completed University o f Polysaccharide, 00:00:00 [place] Med ical PPSV23 (PNEUMOVAX) Branch Influenza Virus 2011-11-22 Completed Universit y of Vaccine 00:00:00 [facility] Pneumococcal 2011-11-22 Completed University o f Polysaccharide, 00:00:00 [place] [facility] PPSV23 (PNEUMOVAX) Branch Influenza Virus 2011-11-22 Completed Universit y of Vaccine 00:00:00 [facility] Pneumococcal 2011-11-22 Completed University o f Polysaccharide, 00:00:00 [place] [facility] PPSV23 (PNEUMOVAX) [place] MMR 2011-11-09 Completed University of 00:00:00 [facility] MMR 2011-11-09 Completed University of 00:00:00 [facility] MMR 2011-11-09 Completed University of 00:00:00 [facility] MMR 2011-11-09 Completed University of 00:00:00 [facility] MMR 2011-11-09 Completed University of 00:00:00 [facility] MMR 2011-11-09 Completed University of 00:00:00 [facility] MMR 2011-11-09 Completed University of 00:00:00 [facility] MMR 2011-11-09 Completed University of 00:00:00 [facility] MMR 2011-11-09 Completed University of 00:00:00 [facility] MMR 2011-11-09 Completed University of 00:00:00 [facility] MMR 2011-11-09 Completed University of 00:00:00 [facility] MMR 2011-11-09 Completed University of 00:00:00 [facility] MMR 2011-11-09 Completed University of 00:00:00 [facility] MMR 2011-11-09 Completed University of 00:00:00 [facility] MMR 2011-11-09 Completed University of 00:00:00 [facility] MMR 2011-11-09 Completed University of 00:00:00 [facility] MMR 2011-11-09 Completed University of 00:00:00 [facility] Hep B, Adol or Pedi 2004-06-19 Completed Unive rsity of Dosage 00:00:00 [facility] Hep B, Adol or Pedi 2004-06-19 Completed Unive rsity of Dosage 00:00:00 [facility] Hep B, Adol or Pedi 2004-06-19 Completed Unive rsity of Dosage 00:00:00 [facility] Hep B, Adol or Pedi 2004-06-19 Completed Unive rsity of Dosage 00:00:00 [facility] Hep B, Adol or Pedi 2004-06-19 Completed Unive rsity of Dosage 00:00:00 [facility] Hep B, Adol or Pedi 2004-06-19 Completed Unive rsity of Dosage 00:00:00 [facility] Hep B, Adol or Pedi 2004-06-19 Completed Unive rsity of Dosage 00:00:00 [facility] Hep B, Adol or Pedi 2004-06-19 Completed Unive rsity of Dosage 00:00:00 [facility] Hep B, Adol or Pedi 2004-06-19 Completed Unive rsity of Dosage 00:00:00 [facility] Hep B, Adol or Pedi 2004-06-19 Completed Unive rsity of Dosage 00:00:00 [facility] Hep B, Adol or Pedi 2004-06-19 Completed Unive rsity of Dosage 00:00:00 [facility] Hep B, Adol or Pedi 2004-06-19 Completed Unive rsity of Dosage 00:00:00 [facility] Hep B, Adol or Pedi 2004-06-19 Completed Unive rsity of Dosage 00:00:00 [facility] Hep B, Adol or Pedi 2004-06-19 Completed Unive rsity of Dosage 00:00:00 [facility] Hep B, Adol or Pedi 2004-06-19 Completed Unive rsity of Dosage 00:00:00 [facility] Hep B, Adol or Pedi 2004-06-19 Completed Unive rsity of Dosage 00:00:00 [facility] Hep B, Adol or Pedi 2004-06-19 Completed Unive rsity of Dosage 00:00:00 [facility] Vital Signs Vital Name Observation Time Observation Value Comments Source Systolic blood 2021-12-17 18:22:00 151 mm[Hg] Univer sity of pressure [facility] Diastolic blood 2021-12-17 18:22:00 88 mm[Hg] Unive rsity of pressure [facility] Heart rate 2021-12-17 18:22:00 110 /min Universi ty of [facility] Body temperature 2021-12-17 18:22:00 36.33 Alexandrea [facility] ersity of [facility] Respiratory rate 2021-12-17 18:22:00 18 /min Univ ersity of [facility] Body weight 2021-12-17 18:22:00 96.616 kg Universi ty of [facility] BMI 2021-12-17 18:22:00 32.39 kg/m2 Universi ty of [facility] Oxygen saturation in 2021-12-17 18:22:00 99 /min University Arterial blood by [facility] Pulse oximetry Branch Systolic blood 2021-11-28 20:35:00 147 mm[Hg] Univer sity of pressure [facility] Diastolic blood 2021-11-28 20:35:00 102 mm[Hg] Unive rsity of pressure [facility] Heart rate 2021-11-28 20:35:00 98 /min Universi ty of [facility] Body temperature 2021-11-28 20:35:00 37.06 Alexandrea Univ ersity of [facility] Respiratory rate 2021-11-28 20:35:00 18 /min Univ ersity of [facility] Body weight 2021-11-28 20:35:00 96.616 kg Universi ty of [facility] BMI 2021-11-28 20:35:00 32.39 kg/m2 Universi ty of [facility] Oxygen saturation in 2021-11-28 20:35:00 99 /min University of Arterial blood by [facility] kellie Pulse oximetry Branch Systolic blood 2020-11-26 19:22:00 156 mm[Hg] Univer sity of pressure [facility] Diastolic blood 2020-11-26 19:22:00 94 mm[Hg] Unive rsity of pressure [facility] Heart rate 2020-11-26 19:18:00 94 /min Universi ty of [facility] Respiratory rate 2020-11-26 19:18:00 19 /min Univ ersity of [facility] Body height 2020-11-26 19:18:00 172.7 cm Universi ty of [facility] Body weight 2020-11-26 19:18:00 96.888 kg Universi ty of [facility] BMI 2020-11-26 19:18:00 32.48 kg/m2 Universi ty of [facility] Oxygen saturation in 2020-11-26 19:18:00 98 /min University of Arterial blood by [facility] Pulse oximetry Branch Systolic blood 2020-09-11 16:16:00 106 mm[Hg] Univer sity of pressure [facility] Diastolic blood 2020-09-11 16:16:00 70 mm[Hg] Unive rsity of pressure [facility] Heart rate 2020-09-11 16:16:00 110 /min Universi ty of [facility] Body temperature 2020-09-11 16:16:00 36.22 Alexandrea Univ ersity of [facility] Respiratory rate 2020-09-11 16:16:00 18 /min Univ ersity of [facility] Body weight 2020-09-11 16:16:00 99.156 kg Universi ty [facility] BMI 2020-09-11 16:16:00 34.24 kg/m2 Universi ty [facility] Systolic blood 2020-09-04 16:01:00 178 mm[Hg] Univer sity of pressure [facility] Diastolic blood 2020-09-04 16:01:00 105 mm[Hg] Unive rsity of pressure [facility] Heart rate 2020-09-04 16:01:00 111 /min Universi ty of [facility] Body temperature 2020-09-04 16:01:00 36.17 Alexandrea Univ ersity of [facility] Respiratory rate 2020-09-04 16:01:00 18 /min [facility] Body height 2020-09-04 16:01:00 170.2 cm Universi ty of [facility] Body weight 2020-09-04 16:01:00 98.431 kg Universi ty [facility] [place] BMI 2020-09-04 16:01:00 33.99 kg/m2 Universi ty [facility] Systolic blood 2020-08-21 16:42:00 137 mm[Hg] Univer sity of [facility] Diastolic blood 2020-08-21 16:42:00 91 mm[facility]Hg] [facility] 2020-08-21 16:42:00 105 /min Universi ty [facility] Body height 2020-08-21 16:42:00 172.7 cm Universi ty [facility] Body weight 2020-08-21 16:42:00 92.987 kg [facility]i [facility] BMI 2020-08-21 16:42:00 31.17 kg/m2 [facility] Oxygen saturation in 2020-08-21 16:42:00 99 /min [facility] Arterial blood by [facility] Pulse oximetry Branch Procedures Procedure Date / Time Performing Clinician Source Performed [id number] 2021-12-23 00:00:00 VUCHR.01 [facility]3] XR FOOT <3 VW LEFT 2021-12-17 19:51:21 Esha Cui [facility] COMP. METABOLIC PANEL 2021-12-17 19:27:00 Esha Cui [facility] ([id number]) [facility] SEDIMENTATION RATE 2021-12-17 19:27:00 Esha Cui [facility] CBC WITH DIFF 2021-12-17 19:27:00 Esha Cui [facility] NOTICE OF PRIVACY 2021-11-28 20:25:48 Doctor Unassigned, No [facility] Branch CONSENT/REFUSAL FOR 2021-11-28 20:25:33 Doctor Unassigned, No [facility]REATMENT Name Medical Branch DISCLOSURE AND CONSENT, 2020-09-11 05:01:00 Doctor Unassigned, N o University [facility] SURGICAL Name Medical Bra [facility] PROCEDURES CONSENT/REFUSAL FOR 2020-08-21 16:23:25 Doctor Unassigned, No Un [facility] DIAGNOSIS AND TREATMENT Name Medical Branch Encounters Start End Encounter Admission Attending Care Care Encounter Source Date/Time Date/Time Type Type Clinicians Facility Department ID 2021-12-18 2021-12-23 Inpatient BREA Frost [facility] [id number] [facility] 00:48:00 15:45:00 Lorena [facility] 2021-12-17 2021-12-17 Outpatient EDDOC, [facility] LABO [id number] [facility] 23:10:00 23:10:00 GENERIC 03 [facility] 2021-12-17 2021-12-17 Emergency X SEE [facility] ERT [id number] Univers 12:27:00 14:57:00 ESHA coleman [facility] 2021-12-17 2021-12-17 [facility] [id number] Univers 12:27:00 14:57:00 Esha JERONIMO [id number] ity [facility] [id number] [facility] [phone] [facility] 084 Branch 2021-11-28 2021-11-28 Emergency X DONIS [facility] ERT [id number] Univers 14:37:00 18:08:00 VIVIANE coleman [facility] 2021-11-28 2021-11-28 [facility] [id number] Univers 14:37:00 18:08:00 Viviane JERONIMO [id number] i ty of [place] [id number] [facility] [phone] [facility] 084 Branch 2021-11-28 2021-11-28 Orders Doctor HASSAN [id number] Univers 00:00:00 00:00:00 Only Unassigned, KERRY [id number] ity of [place] [facility] [id number] Justin [phone] [facility] 009 Branch 2021-07-02 2021-07-02 Outpatient FRANK BERG [facility] [id number] Univers 13:00:00 13:00:00 FRANK SAMPSON [id number] i ty of [facility] 2021-07-02 2021-07-02 Outpatient R FRANK SAMPSON [facility] [id number] Univers 13:00:00 13:00:00 FRANK SAMPSON i ty of [facility] 2021-05-27 2021-05-27 Outpatient R FRANK SAMPSON [facility] [id number] Univers 13:00:00 13:00:00 FRANK SAMPSON [id number] i ty of [facility] 2021-02-04 2021-02-04 Patient [facility] [id number] Univers 00:00:00 00:00:00 Outreach Edgardo ROCHELLE [id number] i ty of [facility] [id number] [place] [facility] [phone] [place]ical [address] [place] 2020-11-26 2020-11-26 Office Camilla [facility] 1.2.840.114 [id number] Univers 13:01:30 13:34:48 Visit Frank Jeronimo [id number] i [id number] [phone] [place] dical nal 085 [facility] 2020-11-26 2020-11-26 Outpatient R FRANK SAMPSON [facility] [id number] Univers 12:40:00 12:40:00 FRANK SAMPSON [id number] i ty of [facility] 2020-11-26 2020-11-26 Outpatient R FRANK SAMPSON [facility] [id number] Univers 12:40:00 12:40:00 FRANK SAMPSON i ty of [facility] 2020-09-25 2020-09-25 Outpatient R ALYSSIA [facility] [id number] Univers 10:15:00 10:15:00 [place] [id number] ity [facility] 2020-09-25 2020-09-25 Outpatient R ALYSSIA [facility] [id number] Univers 10:15:00 10:15:00 MO coleman [facility] 2020-09-11 2020-09-11 Office Mo Quintero [facility] 1.2.8 40.114 [id number] Univers 10:55:38 13:16:44 Visit Rm, Adc Surg Spec Procedure [place] 3 [id number] [id number] [phone] [place] dical nal 188 [facility] 2020-09-11 2020-09-11 Outpatient [facility] [id number] Univers 10:45:00 10:45:00 MO [id number] ity [facility] 2020-09-11 2020-09-11 Outpatient [facility] [id number] Univers 10:45:00 10:45:00 MO itmack [facility] 2020-09-11 2020-09-11 Orders Doctor [place] 1.2.840.114 [id number] Univers 00:00:00 00:00:00 Only Unassigned, KERRY [id number] ity of [place] [facility] [id number] Justin as [phone] [address] 2020-09-04 2020-09-04 Office [facility] 1.2.840.114 [id number] Univers 10:15:26 11:26:31 Visit Mo Jeronimo [id number] i ty of [id number] [place] [phone] [place] dical nal 188 [facility] 2020-09-04 2020-09-04 Outpatient Re[facility] [id number] Univers 10:00:00 10:00:00 MO [id number] ity [facility] 2020-09-04 2020-09-04 Outpatient Reba ALYSSIA [facility] [id number] Univers 10:00:00 10:00:00 [place] itmack [facility] 2020-08-21 2020-08-21 Office [facility] 1.2.840.114 [id number] Univers 11:24:26 12:03:34 Visit Frank Jeronimo [id number] i ty [id number] [phone] [place] dical nal 085 [facility] 2020-08-21 2020-08-21 Outpatient FRANK SAMPSON [facility] [id number] Univers 11:20:00 11:20:00 CAMILLA FRANK [id number] i ty of [facility] 2020-08-21 2020-08-21 Outpatient R FRANK SAMPSON [facility] [id number] Univers 11:20:00 11:20:00 CAMILLA FRANK i ty of [facility] 2020-08-21 2020-08-21 Orders Doctor [place] 1.2.840.114 [id number] Univers 00:00:00 00:00:00 Only Unassigned, KERRY [id number] ity of [place] [facility] [id number] Justin as [phone] [address] Results Test Description Test Time Test Comments Results Result Comments Source SOFT TISSUE 2021-12-24 16:54:00 Test Item Value Reference Range Interpretation Comme nts SOFT TISSUE RUN DATE: (test code 12/24/21 [facility] - Lab PAGE 1 RUN TIME: 1655 = Specimen Inquiry RUN USER: INTERFACE SOFTISSUE) PATIENT: MARCE HUBBARD LOC: OlegSAMIRA U #: [id number] AGE/SX: 41/F ROOM: [facility] RE12/18/21REG DR: Lornea Mclain MSN : 76 BED: A DIS: 12/23/21 STATUS: DIS IN TLOC: SPEC #: [id number] RECD: STATUS: DARRION SCHULER #: [id number] TEO: 12/23/[address]: Grant Laguna DPSavanah ENTERED: 12/23/21 SP TYPE: SOFT MASS OTHR DR: Benjamin Ramirez MD, Padmaja Pam MD Young, Lauren E NPORDERED: GROSS COPIES TO: Corby Ramirez MD [address] [place] [address] Amelia Herr MD [address] [place] [address] Grant Laguna DPM [address] [place] [address] Rekha Lucio NP [address] [place] [address] PROCEDURES: GROSS (12/24/21) TISSUES: LEFT FOOT - SOFT TISSUE CLINICAL HISTORY COLLECTION DATE: 12/23/21 LEFT FOOT INFECTED NEUROPATHIC ULCER FINAL DIAGNOSIS Left foot, soft tissue, removal of devitalized soft tissues: SKIN AND SUBCUTANEOUS ADIPOSE TISSUE WITH EXTENSIVE NECROSIS AND ACUTE INFLAMMATION DMW/sm CONTINUED ON NEXT PAGE RUN DATE: 12/24/21 [facility] PAGE 2 RUN TIME: 1655 Specimen Inquiry RUN USER: INTERFACE SPEC #: [id number] PATIENT: MARCE HUBBARD #[id number] (Continued) FINAL DIAGNOSIS (Continued) D 61231 MACROSCOPIC The specimen is received in formalin, labele d with the patient's name, and identified as "soft tissue of left foot". It consists of three mottled appearing uribe and brown fragments of tissue which appears to be necrotic portions of skin. They jordon ure 4.3 x 1.7 x 0.1 cm, 1.3 x 1.1 x 0.1 cm and 1.2 x 0.7 x less than 0.1 cm. Samples of the specimen are submitted for microscopic evaluation in a single cassette. GROSS PERFORMED AT [facility] [address] [place] [address] (p)[phone] MICROSCOPIC All of the stains, including any controls performed, stain appropriately. 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 [id number] 05:40:00 Test Item Value Reference Range Interpretation Comments GLUBED (test code = 169 mg/dL 74-106 H Performe d by certified GLUBED) diesel pile driver operator at [facility] BASIC METABOLIC [id number] 00:54:00 Test Item Value Reference Range Interpretation Comments SODIUM (test code = 139 mmol/L 136-145 N NA) POTASSIUM (test code 3.7 mmol/L 3.5-5.1 N = K) CHLORIDE (test code 105.0 mmol/L 98-107 N = CL) CARBON DIOXIDE (test 26.0 mmol/L 21-32 N code = CO2) ANION GAP (test code 11.7 10-20 N = GAP) GLUCOSE (test code = 148 mg/dL 74-106 H GLU) BLOOD UREA NITROGEN 14 mg/dL 7-18 N (test code = BUN) GLOMERULAR > 60 mL/min See_Comment Estimated GFR b y FILTRATION RATE using Modifi ed MDRD (test code = GFR) formula.[facility] kidney disease is defined as eith er kidney damageor GFR <60 mL/min/1.73 m2 for >3 months. [Automated mess age] The system [email or web address] generated this result transmitted ref erence range: >=60. Th e reference range was not used to int erpret this result as normal/abnormal . CREATININE (test 0.70 mg/dL 0.55-1.02 N Note lo ge in code = CREAT) reference rang e due to change in reagent. BUN/CREATININE RATIO 19.4 10-20 N (test code = BUN/CREA) CALCIUM (test code = 8.5 mg/dL 8.5-10.1 N CA) CBC W/AUTO [id number] 00:44:00 Test Item Value Reference Range Interpretation Comments WHITE BLOOD CELL (test code = 8.2 K/mm3 4.5-12.5 N WBC) RED BLOOD CELL (test code = 4.67 mill/mm3 3.7-5.2 N RBC) HEMOGLOBIN (test code = HGB) 13.5 gram/dL 11.5-15.5 N HEMATOCRIT (test code = HCT) 40.8 % 36.0-46.0 N MEAN CELL VOLUME (test code = 87.4 fL 80-98 N MCV) MEAN CELL HGB (test code = MCH) 28.9 picogram 27.0-33.0 N MEAN CELL HGB CONCETRATION 33.1 gram/dL 33.0-36.0 N (test code = MCHC) RED CELL DISTRIBUTION WIDTH 12.5 % 11.6-16.2 N (test code = RDW) RED CELL DISTRIBUTION WIDTH SD 39.6 fL 37.0-51.0 N (test code = RDW-SD) PLATELET COUNT (test code = 206 K/mm3 150-450 N PLT) MEAN PLATELET VOLUME (test code 12.0 fL 6.7-11.0 H = MPV) NEUTROPHIL % (test code = NT%) 55.7 % 39.0-69.0 N IMMATURE GRANULOCYTE % (test 0.9 % 0.0-5.0 N code = IG%) LYMPHOCYTE % (test code = LY%) 32.0 % 25.0-55.0 N MONOCYTE % (test code = MO%) 9.1 % 0.0-10.0 N EOSINOPHIL % (test code = EO%) 1.8 % 0.0-5.0 N BASOPHIL % (test code = BA%) 0.5 % 0.0-1.0 N NUCLEATED RBC % (test code = 0.0 % 0-0 N NRBC%) NEUTROPHIL # (test code = NT#) 4.57 K/mm3 1.8-7.7 N IMMATURE GRANULOCYTE # (test 0.07 x10 3/uL 0-0.03 H code = IG#) LYMPHOCYTE # (test code = LY#) 2.62 K/mm3 1.0-5.0 N MONOCYTE # (test code = MO#) 0.75 K/mm3 0-0.8 N EOSINOPHIL # (test code = EO#) 0.15 K/mm3 0.0-0.5 N BASOPHIL # (test code = BA#) 0.04 K/mm3 0.0-0.2 N NUCLEATED RBC # (test code = 0.00 K/mm3 0.0-0.1 N NRBC#) MANUAL DIFF REQUIRED (test code NO = MDIFF) [id number] 22:20:00 Test Item Value Reference Range Interpretation Comments GLUBED (test code = 134 mg/dL 74-106 H Performe d by certified GLUBED) 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2022-02-02 16:54:00 Test Item Value Reference Range Interpretation Comments GLUBED (test code = 170 mg/dL 74-106 H Performe d by certified GLUBED) 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2022-02-02 12:13:00 Test Item Value Reference Range Interpretation Comments GLUBED (test code = 174 mg/dL 74-106 H Performe d by certified GLUBED) 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2022-02-02 08:09:00 Test Item Value Reference Range Interpretation Comments GLUBED (test code = 122 mg/dL 74-106 H Performe d by certified GLUBED) 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2022-02-02 06:29:00 Test Item Value Reference Range Interpretation Comments GLUBED (test code = 147 mg/dL 74-106 H Performe d by certified GLUBED) 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2022-02-01 21:14:00 Test Item Value Reference Range Interpretation Comments GLUBED (test code = 233 mg/dL 74-106 H Performe d by certified GLUBED) diesel pile driver operator at [facility] [id number] 15:42:00 Test Item Value Reference Range Interpretation Comments GLUBED (test code = 136 mg/dL 74-106 H Performe d by certified GLUBED) diesel pile driver operator at [facility] [id number] 11:52:00 Test Item Value Reference Range Interpretation Comments GLUBED (test code = 208 mg/dL 74-106 H Performe d by certified GLUBED) diesel pile driver operator at [facility] [id number] 09:02:00 Test Item Value Reference Range Interpretation Comments GLUBED (test code = 186 mg/dL 74-106 H Performe d by certified GLUBED) diesel pile driver operator at [facility] - MRI LOW EXT W WO CONT [id number] 08:51:00 [facility])Name: MARCE HUBBARD : 1980 Sex: F FAX: Benjamin Ramirez MD [phone] [place]: B St: ADM FAX: Amelia Herr FAX: Siddharth Heaton NP [phone] Name: MARCE HUBBARD [facility] : 1980 Age/S: 41/F [address] [facility] Unit #: [id number] Loc: V.3027 [place] [address] Phys: Siddharth Heaton NP Acct: [id number] Dis Date: Status: ADM IN PHONE #: [phone] Exam Date: 12/20/20211823 FAX #: [phone] Reason: foot diabetic ulcer, left EXAMS: CPT CODE: [id number] [place] [address] HISTORY: Diabetic foot ulcer. COMPARISON: X-ray from December 17, 2021. Location: [facility]. MRI left foot with without contrast: Diffuse edema of the entire fourth metatarsal bone with slightirregularity of the distal fourth metatarsal. It is extensively hyperintense on the T2-weighted images and hypointense on the T1- weighted images. Oblique fracture line visible in the distal portion. No fracture is visible on the plain x-ray. Following gadolinium intense enhancement of nearly the entire fourth metatarsal bone with sparing of the distal portion. Differential diagnoses includes osteomyelitis versus stress fracture. Correlate clinically. Soft tissue swelling along the dorsum is noted. No drainable abscess collection. Rest of the bone marrow signal is normal. Visualized ligaments and tendons appear within normal limits. IMPRESSION: Oblique fracture line visible within the distal fourth metatarsal bone with diffuse edema and enhancement of nearly the entire fourth metatarsalbone with soft tissue swelling. Differential diagnosis includes osteomyelitis and stress frac ture. Correlate clinically. No drainable abscess. No other fractures or other areas of abnormal enhancement to suggest osteomyelitis either. at 0851 Reported and signed by: Julius Escalante M.D. CC: Benjamin Ramirez MD; Amelia Herr MD; Siddharth Heaton NP Technologist: BABEY SOMERSRT - MRI Trntnrd Date/Time/By: 12/21/2021 (0825) : By: CharmaineTH4 Orig Print D/T: S: 12/21/2021 (3754) PAGE 1 Signed [id number] 07:34:00 Test Item Value Reference Range Interpretation Comments GLUBED (test code 184 mg/dL 74-106 H Performed by certified = GLUBED) [facility] [id number] 21:38:00 Test Item Value Reference Range Interpretation Comments GLUBED (test code = 218 mg/dL 74-106 H Performe d by certified GLUBED) diesel pile driver operator at [facility] [id number] 16:01:00 Test Item Value Reference Range Interpretation Comments VANCOMYCIN (test code = VANCO) 8.3 UG/ML 5.0-45.0 N [id number] 15:54:00 Test Item Value Reference Range Interpretation Comments GLUBED (test code = 228 mg/dL 74-106 H Performe d by certified GLUBED) diesel pile driver operator at [facility] [id number] 12:28:00 Test Item Value Reference Range Interpretation Comments GLUBED (test code = 224 mg/dL 74-106 H Performe d by certified GLUBED) diesel pile driver operator at [facility] [id number] 08:06:00 Test Item Value Reference Range Interpretation Comments GLUBED (test code = 236 mg/dL 74-106 H Performe d by certified GLUBED) diesel pile driver operator at [facility] [id number] 06:13:00 Test Item Value Reference Range Interpretation Comments GLUBED (test code = 265 mg/dL 74-106 H Performe d by certified GLUBED) diesel pile driver operator at [facility] [id number] 20:37:00 Test Item Value Reference Range Interpretation Comments GLUBED (test code = 200 mg/dL 74-106 H Performe d by certified GLUBED) diesel pile driver operator at [facility] [id number] 17:08:00 Test Item Value Reference Range Interpretation Comments GLUBED (test code = 292 mg/dL 74-106 H Performe d by certified GLUBED) diesel pile driver operator at [facility] [id number] 11:36:00 Test Item Value Reference Range Interpretation Comments GLUBED (test code = 185 mg/dL 74-106 H Performe d by certified GLUBED) diesel pile driver operator at [facility] COMPREHENSIVE METABOLIC [id number] 09:33:00 Test Item Value Reference Range Interpretation Comments SODIUM (test code = 138 mmol/L 136-145 N NA) POTASSIUM (test code 4.6 mmol/L 3.5-5.1 N = K) CHLORIDE (test code = 107.0 mmol/L 98-107 N CL) CARBON DIOXIDE (test 27.0 mmol/L 21-32 N code = CO2) ANION GAP (test code 8.6 10-20 L = GAP) GLUCOSE (test code = 164 mg/dL 74-106 H GLU) BLOOD UREA NITROGEN 11 mg/dL 7-18 N (test code = BUN) GLOMERULAR FILTRATION > 60 mL/min See_Comment Estima sukhjinder GFR by RATE (test code = using Abbey fied MDRD GFR) formula.Chronic kidney disease is defined as eith er kidney damageor GFR <60 mL/min/1.73 m2 for >3 months. [Automated mess age] The system [email or web address] generated this result transmit sukhjinder reference range : >=60. The refer ence range was not u sed to interpret th is result as normal/abnormal . CREATININE (test code 0.50 mg/dL 0.55-1.02 L Note change in = CREAT) reference range due to change in reagent. BUN/CREATININE RATIO 22.0 10-20 H (test code = BUN/CREA) TOTAL PROTEIN (test 6.4 gram/dL 6.4-8.2 N code = PROT) ALBUMIN (test code = 2.8 g/dL 3.4-5.0 L ALB) GLOBULIN (test code = 3.6 gram/dL 2.7-4.2 N GLOB) ALBUMIN/GLOBULIN 0.8 0.75-1.50 N RATIO (test code = A/G) CALCIUM (test code = 8.2 mg/dL 8.5-10.1 L CA) BILIRUBIN TOTAL (test 0.40 mg/dL 0.0-1.0 N code = BILT) SGOT/AST (test code = 35 IUnit/L 15-37 N AST) SGPT/ALT (test code = 23 IUnit/L 12-78 N ALT) ALKALINE PHOSPHATASE 79 IUnit/L 45-117 N Note change in TOTAL (test code = reference range due ALKP) to change in reagent. CBC W/AUTO [id number] 08:52:00 Test Item Value Reference Range Interpretation Comments WHITE BLOOD CELL (test code = 6.9 K/mm3 4.5-12.5 N WBC) RED BLOOD CELL (test code = 4.56 mill/mm3 3.7-5.2 N RBC) HEMOGLOBIN (test code = HGB) 13.2 gram/dL 11.5-15.5 N HEMATOCRIT (test code = HCT) 40.6 % 36.0-46.0 N MEAN CELL VOLUME (test code = 89.0 fL 80-98 N MCV) MEAN CELL HGB (test code = MCH) 28.9 picogram 27.0-33.0 N MEAN CELL HGB CONCETRATION 32.5 gram/dL 33.0-36.0 L (test code = MCHC) RED CELL DISTRIBUTION WIDTH 12.3 % 11.6-16.2 N (test code = RDW) RED CELL DISTRIBUTION WIDTH SD 40.3 fL 37.0-51.0 N (test code = RDW-SD) PLATELET COUNT (test code = 213 K/mm3 150-450 N PLT) MEAN PLATELET VOLUME (test code 12.0 fL 6.7-11.0 H = MPV) NEUTROPHIL % (test code = NT%) 57.8 % 39.0-69.0 N IMMATURE GRANULOCYTE % (test 1.0 % 0.0-5.0 N code = IG%) LYMPHOCYTE % (test code = LY%) 30.6 % 25.0-55.0 N MONOCYTE % (test code = MO%) 8.0 % 0.0-10.0 N EOSINOPHIL % (test code = EO%) 2.2 % 0.0-5.0 N BASOPHIL % (test code = BA%) 0.4 % 0.0-1.0 N NUCLEATED RBC % (test code = 0.0 % 0-0 N NRBC%) NEUTROPHIL # (test code = NT#) 3.98 K/mm3 1.8-7.7 N IMMATURE GRANULOCYTE # (test 0.07 x10 3/uL 0-0.03 H code = IG#) LYMPHOCYTE # (test code = LY#) 2.11 K/mm3 1.0-5.0 N MONOCYTE # (test code = MO#) 0.55 K/mm3 0-0.8 N EOSINOPHIL # (test code = EO#) 0.15 K/mm3 0.0-0.5 N BASOPHIL # (test code = BA#) 0.03 K/mm3 0.0-0.2 N NUCLEATED RBC # (test code = 0.00 K/mm3 0.0-0.1 N NRBC#) MANUAL DIFF REQUIRED (test code NO = MDIFF) [id number] 07:19:00 Test Item Value Reference Range Interpretation Comments GLUBED (test code = 165 mg/dL 74-106 H Performe d by certified GLUBED) 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2022-01-29 21:03:00 Test Item Value Reference Range Interpretation Comments GLUBED (test code = 327 mg/dL 74-106 H Performe d by certified GLUBED) 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 HEART, NADEGE G, AND BLOOD INST. HDL CHOLESTEROL (test 52 mg/dL 40-60 N code = HDL) LIPOPROTEIN LDL (test 106 mg/dL 100-129 N RN PER HALLIE, CONTACT code = LDL) PHYSICIAN IMMED IATELY IF THIS IS A [facility] [place], AMI OR CAROTID STENOSIS PATIEN T WHEN THE LDL >100 ([address] OCCURENCE, THIS ADMISSION)===== ======= ======= ======= ===Reference In terval: mg/dL mmol/L-------- ------- ------- ------- Optimal <100 <2.6Near/above optimal 100-12 9 2.6-3.3Borderl ine High 130-159 3.4-4.1High 160 -189 4.1-4.9Very High >=190 >=4.9========= This LDL result is a direct measurement.=== ====== THYROID STIMULATING [id number] 03:38:00 Test Item Value Reference Range Interpretation Comments THYROID STIMULATING 0.669 uIU/mL 0.36-3.74 N TSH REFE RENCE HORMONE (test code = RANGES: EUTHYROID: TSH) 0.35 - 4.3 mIU/mL HYPO : > 5.5 mIU/mL HYPER : < 0.35 mIU/mL [id number] 03:28:00 Test Item Value Reference Range Interpretation Comments GLYCOSYLATED HEMOGLOBIN 13.0 % HbA1 MARKELL MARRERO (HA1C) (test code = DIAGNOSI S: HbA1C GLYHGB) (%) ---- ------ Diab etic >6.4Prediabetes 5.7 - 6.4Normal <5.7 ESTIMATED AVERAGE 326 MG/DL GLUCOSE (test code = EAG) COVID 19 INHOUSE [id number] 01:28:00 Test Item Value Reference Range Interpretation Comments COVID 19 INHOUSE AG (test code = NEGATIVE NEGATIVE [id number]) URINALYSIS [id number] 22:30:00 Test Item Value Reference Range Interpretation Comments UA COLOR (test code = Light-Yellow YELLOW COLU) UA APPEARANCE (test CLEAR CLEAR IS THE S AMPLE code = APPU) FROM ER OR L&D? Y IF THE ANSWER I S NO,PLEASE DOCUMENT TWO RN SIGNATURES HERE - by [id number] 12/17/21 4793 UA GLUCOSE DIPSTICK >1000 (4+) mg/dL NEGATIVE (test code = DGLUU) UA BILIRUBIN DIPSTICK NEGATIVE mg/dL NEGATIVE (test code = BILU) UA KETONE DIPSTICK NEGATIVE mg/dL NEGATIVE (test code = KETU) UA SPECIFIC GRAVITY 1.044 1.001-1.035 (test code = SGU) UA BLOOD DIPSTICK Negative mg/dL NEGATIVE (test code = KARI) UA PH DIPSTICK (test 5.5 5.0-8.0 code = ZEESHAN) UA PROTEIN DIPSTICK NEGATIVE mg/dL NEGATIVE (test code = PROU) UA UROBILINIOGEN Normal mg/dL NEGATIVE DIPSTICK (test code = URO) UA NITRITE DIPSTICK NEGATIVE NEGATIVE (test code = HADLEY) UA LEUKOCYTE ESTERASE NEGATIVE Lisette/uL NEGATIVE W REFLEX (test code = LEUUR) UA WBC (test code = 0-5 per HPF 0-5 WBCU) UA RBC (test code = 0-2 #/HPF 0-5 RBCU) UA EPITHELIAL CELLS FEW per HPF FEW (test code = EPIU) UA BACTERIA (test FEW #/HPF NONE A code = BACU) Urine Source? Clean Catch- XR FOOT 3 + V [id number] 22:04:00 [facility])Name: MARCE HUBBARD : 1980 Sex: F FAX: Mack Zachery Nino APRN [phone] [place]: St: REG Name: MARCE HUBBARD [facility] : 1980 Age/S: 41/F [address] [facility] Unit #: [id number] Loc: [place] [address] Phys: Zachery Nino Acct: [id number] Dis Date: Status: REG ER PHONE #: [phone] Exam Date: 2134 FAX #: [phone] Reason: foot wound EXAMS: CPT CODE: [id number] XR FOOT 3 +V LT 61542 3 VIEWS LEFT FOOT Dictation Location: N13 CLINICAL HISTORY: Foot wound , sent by PCP for admission Technique: Oblique, AP and lateral views were obtained. Findings: There is a diffuse mild osteopenia. There is a small heel spur. There is no evidence of fracture,dislocation, or radiopaque foreign body. Soft tissues are unremarkable. No evidence ofsubcutaneous emphysema or obvious soft tissue swelling. IMPRESSION: No acute abnormality by plain film. Small heel spur. at 2204 Reported and signed by: Elise Mcelroy M.D. CC: Zachery Nino Technologist: VIVI KWAN Trnscrd Date/Time/By: 12/17/2021 (2203) : By: Esteban Orig Print D/T: S: 12/17/2021 (2206) PAGE 1 Signed [id number] 22:02:00 Test Item Value Reference Range Interpretation Comments TROPONIN-HS (test <4.0 pg/mL 0-45 N CAUTION: U nits of the code = TROPI) current test m ethodology (pg/mL)differ f rom the prior test meth odology (ng/mL) by a fa ctorof 1000. LACTIC [id number] 22:02:00 Test Item Value Reference Range Interpretation Comments LACTIC ACID (test code = LACT) 0.8 mmol/L 0.4-1.9 N BASIC METABOLIC [id number] 22:02:00 Test Item Value Reference Range Interpretation Comments SODIUM (test code = 136 mmol/L 136-145 N NA) POTASSIUM (test code 3.4 mmol/L 3.5-5.1 L = K) CHLORIDE (test code 103.0 mmol/L 98-107 N = CL) CARBON DIOXIDE (test 27.0 mmol/L 21-32 N code = CO2) ANION GAP (test code 9.4 10-20 L = GAP) GLUCOSE (test code = 320 mg/dL 74-106 H GLU) BLOOD UREA NITROGEN 15 mg/dL 7-18 N (test code = BUN) GLOMERULAR > 60 mL/min See_Comment Estimated GFR b y FILTRATION RATE using Modifi ed MDRD (test code = GFR) formula. ronic kidney disease is defined as eith er kidney damageor GFR <60 mL/min/1.73 m2 for >3 months. [Automated mess age] The system [email or web address] generated this result transmitted ref erence range: >=60. Th e reference range was not used to int erpret this result as normal/abnormal . CREATININE (test 0.80 mg/dL 0.55-1.02 N Note lo ge in code = CREAT) reference rang e due to change in reagent. BUN/CREATININE RATIO 19.0 10-20 N (test code = BUN/CREA) CALCIUM (test code = 9.2 mg/dL 8.5-10.1 N CA) HEPATIC FUNCTION [id number] 22:02:00 Test Item Value Reference Range Interpretation Comments TOTAL PROTEIN (test 8.0 gram/dL 6.4-8.2 N code = PROT) ALBUMIN (test code = 3.7 g/dL 3.4-5.0 N ALB) GLOBULIN (test code = 4.3 gram/dL 2.7-4.2 H GLOB) ALBUMIN/GLOBULIN RATIO 0.9 0.75-1.50 N (test code = A/G) BILIRUBIN TOTAL (test 0.40 mg/dL 0.0-1.0 N code = BILT) BILIRUBIN DIRECT (test 0.10 mg/dL 0.0-0.20 N code = BILD) SGOT/AST (test code = 19 IUnit/L 15-37 N AST) SGPT/ALT (test code = 23 IUnit/L 12-78 N ALT) ALKALINE PHOSPHATASE 160 IUnit/L 45-117 H Note change in TOTAL (test code = reference range due ALKP) to change in reagent. CBC W/AUTO [id number] 21:45:00 Test Item Value Reference Range Interpretation Comments WHITE BLOOD CELL (test code = 8.4 K/mm3 4.5-12.5 N WBC) RED BLOOD CELL (test code = 4.96 mill/mm3 3.7-5.2 N RBC) HEMOGLOBIN (test code = HGB) 14.4 gram/dL 11.5-15.5 N HEMATOCRIT (test code = HCT) 43.2 % 36.0-46.0 N MEAN CELL VOLUME (test code = 87.1 fL 80-98 N MCV) MEAN CELL HGB (test code = MCH) 29.0 picogram 27.0-33.0 N MEAN CELL HGB CONCETRATION 33.3 gram/dL 33.0-36.0 N (test code = MCHC) RED CELL DISTRIBUTION WIDTH 12.4 % 11.6-16.2 N (test code = RDW) RED CELL DISTRIBUTION WIDTH SD 39.1 fL 37.0-51.0 N (test code = RDW-SD) PLATELET COUNT (test code = 237 K/mm3 150-450 N PLT) MEAN PLATELET VOLUME (test code 12.2 fL 6.7-11.0 H = MPV) NEUTROPHIL % (test code = NT%) 54.7 % 39.0-69.0 N IMMATURE GRANULOCYTE % (test 0.8 % 0.0-5.0 N code = IG%) LYMPHOCYTE % (test code = LY%) 34.1 % 25.0-55.0 N MONOCYTE % (test code = MO%) 7.9 % 0.0-10.0 N EOSINOPHIL % (test code = EO%) 2.0 % 0.0-5.0 N BASOPHIL % (test code = BA%) 0.5 % 0.0-1.0 N NUCLEATED RBC % (test code = 0.0 % 0-0 N NRBC%) NEUTROPHIL # (test code = NT#) 4.59 K/mm3 1.8-7.7 N IMMATURE GRANULOCYTE # (test 0.07 x10 3/uL 0-0.03 H code = IG#) LYMPHOCYTE # (test code = LY#) 2.86 K/mm3 1.0-5.0 N MONOCYTE # (test code = MO#) 0.66 K/mm3 0-0.8 N EOSINOPHIL # (test code = EO#) 0.17 K/mm3 0.0-0.5 N BASOPHIL # (test code = BA#) 0.04 K/mm3 0.0-0.2 N NUCLEATED RBC # (test code = 0.00 K/mm3 0.0-0.1 N NRBC#) MANUAL DIFF REQUIRED (test code NO = MDIFF) - XR CHEST 1 [id number] 21:07:00 [facility])Name: MARCE HUBBARD : 1980 Sex: F FAX: Zachery Cody APRN [phone] [place]: B St: REG Name: MARCE HUBBARD [facility] : 1980 Age/S: 41/F Susanne Hines Unit #: [id number] Loc: [place] [address] Phys: Zachery Nino Acct: [id number] Dis Date: Status: REG ER PHONE #: [phone] Exam Date: 2045 FAX #: [phone] Reason: CODE SEPSIS EXAMS: CPT CODE: [id number] XR CHEST 1 V 89170 EXAM: Chest x-ray, one view; INFORMATION: Code sepsis; FINDINGS: There are fibrotic changes in the midlung rizzo bilaterally. No evidence of acute infiltrate; no edema; no effusions; no pneumothorax. Unremarkable cardiac mediastinal silhouette. IMPRESSION: 1. Bilateralpulmonary scarring. 2. No evidence of acute cardiothoracic abnormalities.Location code: at 2106 Reported and signed by: Petar Duarte M.D. CC: Zachery Nino Technologist: RT JAH(Reba) Trnmert Date/Time/By: 12/17/2021 (2106) : By: CharmaineGRW Orig Print D/T: S: 12/17/2021 (2109) PAGE 1Signed ReportSEDIMENTATION [id number] 20:18:57 Test Item Value Reference Range Interpretation Comments ESR (test code = See_Comment H [Automated message] [id number]) The system [email or web address] generated this result transmitted ref erence range: 0 - 20 m m/HR. The reference r katrin was not used to interpret this result as normal/abnor mal. Lab Interpretation (test Abnormal code = 04327-0) [facility]. METABOLIC PANEL (02236)2021-12-17 19:53:54 Test Item Value Reference Range Interpretation Comments NA (test code = 134 mmol/L 135-145 L 3488205703) K (test code = 4.0 mmol/L 3.5-5.0 4411683255) CL (test code = 100 mmol/L 98-108 2465959448) CO2 TOTAL (test code = 30 mmol/L 23-31 4430494472) AGAP (test code = 2-16 5170583773) BUN (test code = 16 mg/dL 7-23 5111443831) GLUCOSE (test code = 429 mg/dL 70-110 H 7268235778) CREATININE (test code = 0.52 mg/dL 0.50-1.04 3638531512) TOTAL BILI (test code = 0.5 mg/dL 0.1-1.0 1053628581) CALCIUM (test code = 8.8 mg/dL 8.6-10.6 9959322239) T PROTEIN (test code = 7.3 g/dL 6.3-8.2 4863331160) ALBUMIN (test code = 4.1 g/dL 3.5-5.0 9365053720) ALK PHOS (test code = 212 U/L 34-122 H 7410861661) ALTv (test code = 23 U/L 5-35 1742-6) AST(SGOT) (test code = 26 U/L 13-40 1571051172) eGFR (test code = mL/min/1.73m2 7932793491) JOHANNE (test code = JOHANNE) Association of Glomerular Filtration Rate (GFR) and Staging of Kidney Disease* + --+ --+ ------+| GFR (mL/min/1.73 m2) ?| With Kidney Damage ?| ?Without Kidney Damage+ --------+ --------+ +| ?>90 ?| ?Stage one ?| ? Normal ?+ ---+ ---+ -------+| ?60-89 ?| ?Stage two ?| ? Decreased GFR ? + --+ --+ ------+| ?30-59 ?| ?Stage three ?| ? Stage three ? + --+ --+ ------+| ?15-29 ?| ?Stage four ? | ? Stage four ?+ ---+ ---+ -------+| ?<15 (or dialysis) ? ?| ?Stage five ? | ? Stage five ?+ ---+ ---+ -------+ *Each stage assumes the associated GFR level has been in effect for at least three months. ?Stages 1 to 5, with or without kidney disease, indicate chronic kidney disease. Notes: Determination of stages one and two (with eGFR >59mL/min/1.73 m2) requires estimation of kidney damage for at least three months as defined by structural or functional abnormalities of the kidney, manifested by either:Pathological abnormalities or Markers of kidney damage (including abnormalities in the composition of the blood or urine or abnormalities in imaging tests). Lab Interpretation Abnormal (test code = 29439-1) [facility] WITH [id number] 19:38:57 Test Item Value Reference Range Interpretation Comments WBC (test code = See_Comment [Automated 6690-2) message] The sy stem which generated this result transmitted reference range : 4.30 - 11.10 10*3/?L. The reference range was not used to interpret this result as normal/abnormal . RBC (test code = See_Comment [Automated 789-8) message] The sy stem which generated this result transmitted reference range : 3.93 - 5.25 10*6/?L. The reference range was not used to interpret this result as normal/abnormal . HGB (test code = 13.9 g/dL 11.6-15.0 718-7) HCT (test code = 41.1 % 35.7-45.2 4544-3) MCV (test code = 85.6 fL 80.6-95.5 787-2) MCH (test code = 29.0 pg 25.9-32.8 785-6) MCHC (test code = 33.8 g/dL 31.6-35.1 786-4) RDW-SD (test code = 37.5 fL 39.0-49.9 L 57293-5) RDW-CV (test code = 11.9 % 12.0-15.5 L 788-0) PLT (test code = See_Comment [Automated 777-3) message] The sy stem which generated this result transmitted reference range : 166 - 358 10*3/ ?L. The reference r katrin was not used to interpret this result as normal/abnormal . MPV (test code = 12.4 fL 9.5-12.9 39284-9) NRBC/100 WBC (test See_Comment [Automat ed code = 0561082832) message] The system which generated this result transmitted reference range : 0.0 - 10.0 /100 WBCs. The refer ence range was not u sed to interpret th is result as normal/abnormal . NRBC x10^3 (test code <0.01 See_Comment [Auto mated = 3881095994) message] The s ystem which generated this result transmitted reference range : 10*3/?L. The reference range was not used to interpret this result as normal/abnormal . GRAN MAT (NEUT) % 56.9 % (test code = 770-8) IMM GRAN % (test code 0.70 % = 1045162618) LYMPH % (test code = 31.8 % 736-9) MONO % (test code = 8.5 % 5905-5) EOS % (test code = 1.6 % 713-8) BASO % (test code = 0.5 % 706-2) GRAN MAT x10^3(ANC) 4.29 10*3/uL 1.88-7.09 (test code = 5287945151) IMM GRAN x10^3 (test 0.05 10*3/uL 0.00-0.06 code = 0415542111) LYMPH x10^3 (test code 2.40 10*3/uL 1.32-3.29 = 731-0) MONO x10^3 (test code 0.64 10*3/uL 0.33-0.92 = 742-7) EOS x10^3 (test code = 0.12 10*3/uL 0.03-0.39 711-2) BASO x10^3 (test code 0.04 10*3/uL 0.01-0.07 = 704-7) Lab Interpretation Abnormal (test code = 38290-7) [facility]
[2022-04-29] MEDS ORDERED: MORPHINE 4 MG/ML SYR ONE (20:33)
[2022-04-29] MEDS ORDERED: NA CHLORIDE 0.9% 1,000 ML ONE (20:34)
[2022-04-29] MEDS ORDERED: ONDANSETRON 4 MG/2 ML VIAL ONE (20:34)
[2022-04-29 20:36] LABS: Urine Blood Negative (Negative); Urine Glucose 2+ (Negative); Urine Protein Negative (Negative); Urine Specific Gravity 1.015 (1.005-1.030)
[2022-04-29 21:03] LABS: Absolute Lymphocytes (CBC) 2.5 K/uL (0.7-4.9); Hematocrit 37.1 % (36.0-45.0); MPV 9.9 fL (7.6-11.3); RBC Red Blood Cell Count 4.33 M/uL (3.86-4.86)
[2022-04-29 21:17] LABS: Albumin 3.1 g/dL (3.4-5.0); BUN Blood Urea Nitrogen 14 mg/dL (7-18); Bicarbonate 26 mmol/L (21-32); Glucose Level 353 mg/dL (74-106); Potassium 3.5 mmol/L (3.5-5.1); Sodium Level 137 mmol/L (136-145)
[2022-04-29 21:18] LABS: Bilirubin Direct < 0.1 mg/dL (0-0.2)
--- NOTE | 2022-04-29 21:28 | RAD REPORT ---
EXAM DESCRIPTION: US - Extremity Venous Uni Ltd - 04/29/2022 9:19 pm CLINICAL HISTORY: PAINright leg COMPARISON: None. TECHNIQUE: Real-time sonographic evaluation of the right lower extremity deep venous systems was per formed. FINDINGS: Normal compressibility, flow augmentation, phasic flow and spontaneous flow are identified in the right lower extremity common femoral, superficial femoral, popliteal and posterior tibial vei ns. No intraluminal filling defects seen. IMPRESSION: No DVT in the right lower extremity.
--- NOTE | 2022-04-29 21:31 | RAD REPORT ---
EXAM DESCRIPTION: RAD - Tib Fib Right - 04/29/2022 9:24 pm CLINICAL HISTORY: PAIN COMPARISON: No comparisons FINDINGS: No fracture is identified. There is no dislocation or periosteal reaction noted. No acute or suspicious bony finding. Large plantar spur is present. No foreign body or other significant soft tissue abnormality. IMPRESSION: Negative right tibia & fibula examination.
--- NOTE | 2022-04-29 21:32 | RAD REPORT ---
EXAM DESCRIPTION: RAD - Foot Right 3 View - 04/29/2022 9:24 pm CLINICAL HISTORY: PAIN COMPARISON: Foot Right 2 View dated 04/10/2020; Foot Right 3 View dated 04/10/2020 FINDINGS: No fracture, dislocation or periosteal reaction. No acute destructive bone process. Right fifth toe is absent. Large plantar spur present. No air or foreign body in the soft tissues. IMPRESSION: Negative right foot examination for acute finding.
[2022-04-29 21:41] LABS: AST/SGOT 11 U/L (15-37); Alkaline Phosphatase 140 U/L (45-117); Bilirubin Total 0.4 mg/dL (0.2-1.0); Glomerular Filtration Rate 97 ml/min (=/>90); Protein, Total 7.6 g/dL (6.4-8.2)
[2022-04-29 22:30] LABS: Urine Specific Gravity/Preg 1.015 (1.005-1.030)
[2022-04-29] MEDS ORDERED: CLINDAMYCIN 600MG/D5W 600 MG/50 ML BAG IV ONE (22:30)
[2022-04-29 23:11] LABS: ALT/SGPT ND U/L (12-78)
--- NOTE | 2022-04-29 23:12 | EDPHYS ---
Physician Documentation [facility] Name: Glenna Finney Age: 41 yrs Sex: Female : 1980 Arrival Date: 04/29/2022 Time: 19:29 Bed 12 Private MD: ED Physician Antonino Larsen HPI: 04/29 20:10 This 41 yrs old Female presents to ER via Ambulatory with complaints of Wound mh7 Infection, Foot Pain. 20:10 The patient presents with pain, that is acute. mh7 20:10 The complaints affect the medial aspect of right calf, medial aspect of right foot, mh7 right howell and dorsum of right foot. 20:10 Context: The problem was sustained at an unknown site, resulted from an unknown cause, mh7 the patient can fully bear weight, the patient is able to ambulate, without difficulty, Problem is a result from a previous injury: No. Onset: The symptoms/episode began/occurred today. Modifying factors: The symptoms are alleviated by nothing. the symptoms are aggravated by movement, weight bearing. Associated signs and symptoms: Pertinent positives: calf tenderness, swelling, Pertinent negatives fever, nausea, numbness, rash, tingling, vomiting, warmth, weakness. Treatment prior to arrival includes: no previous treatment. Severity of symptoms: At their worst the symptoms were moderate, earlier today, in the emergency department the symptoms are unchanged. 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 - Social history:: Smoking status: Patient denies any tobacco usage or history of. Patient/guardian denies using alcohol. ROS: 20:10 Constitutional: Negative for fever, chills, and weight loss, Eyes: Negative for injury, mh7 pain, redness, and discharge, ENT: Negative for injury, pain, and discharge, Neck: Negative for injury, pain, and swelling, Cardiovascular: Negative for chest pain, palpitations, and edema, Respiratory: Negative for shortness of breath, cough, wheezing, and pleuritic chest pain, Abdomen/GI: Negative for abdominal pain, nausea, vomiting, diarrhea, and constipation, Back: Negative for injury and pain, : Negative for injury, bleeding, discharge, and swelling, Skin: Negative for injury, rash, and discoloration, Neuro: Negative for headache, weakness, numbness, tingling, and seizure, Psych: Negative for depression, anxiety, suicide ideation, homicidal ideation, and hallucinations, Allergy/Immunology: Negative for hives, rash, and allergies, Endocrine: Negative for neck swelling, polydipsia, polyuria, polyphagia, and marked weight changes, Hematologic/Lymphatic: Negative for swollen nodes, abnormal bleeding, and unusual bruising. Exam: 20:10 Constitutional: This is a well developed, well nourished patient who is awake, alert, mh7 and in no acute distress. Head/Face: Normocephalic, atraumatic. Eyes: Pupils equal round and reactive to light, extra-ocular motions intact. Lids and lashes normal. Conjunctiva and sclera are non-icteric and not injected. Cornea within normal limits. Periorbital areas with no swelling, redness, or edema. Neck: Trachea midline, no thyromegaly or masses palpated, and no cervical lymphadenopathy. Supple, full range of motion without nuchal rigidity, or vertebral point tenderness. No Meningismus. Chest/axilla: Normal chest wall appearance and motion. Nontender with no deformity. No lesions are appreciated. Cardiovascular: Regular rate and rhythm with a normal S1 and S2. No gallops, murmurs, or rubs. Normal PMI, no JVD. No pulse deficits. Respiratory: Lungs have equal breath sounds bilaterally, clear to auscultation and percussion. No rales, rhonchi or wheezes noted. No increased work of breathing, no retractions or nasal flaring. Abdomen/GI: Soft, non-tender, with normal bowel sounds. No distension or tympany. No guarding or rebound. No evidence of tenderness throughout. Back: No spinal tenderness. No costovertebral tenderness. Full range of motion. Neuro: Awake and alert, GCS 15, oriented to person, place, time, and situation. Cranial nerves II-XII grossly intact. Motor strength 5/5 in all extremities. Sensory grossly intact. Cerebellar exam normal. Normal gait. Psych: Awake, alert, with orientation to person, place and time. Behavior, mood, and affect are within normal limits. 20:10 Musculoskeletal/extremity: Extremities: noted in the medial aspect of right foot and dorsum of right foot and medial aspect of right calf and right foot: tenderness, ROM: intact in all extremities, Circulation is intact in all extremities. Sensation intact. Compartment Syndrome exam of affected extremity: is normal. no numbness, no tingling, no sensation deficit, no palor, no weak pulses, Joints: All joints appear normal with full range of motion. Weight bearing: able to fully bear weight, Tendon exam: specific tendon testing normal through active and passive range of motion DVT Exam: negative Homans' sign noted on exam, no appreciated bluish discoloration, no erythema, no increased warmth, pain, that is mild, of the right leg, tenderness, that is mild, of the right leg, Calves: have equal circumference, are tender, on right. 20:10 Skin: lesion(s), noted, and can be described as ulcerated, located on the plantar aspect of right first toe. Vital Signs: 20:04 BP 168 / 96; Pulse 95; Resp 18; Temp 97.5(TE); Pulse Ox 96% on R/A; Weight 94.35 kg; ld1 Height 5 ft. 8 in. (172.72 cm); Pain 6/10; 21:59 BP 143 / 85; Pulse 88; Resp 18; Pulse Ox 98% on R/A; oe 22:27 BP 141 / 89; Pulse 84; Resp 18; Pulse Ox 99% on R/A; Pain 0/10; ld1 23:33 BP 139 / 86; Pulse 81; Resp 18; Pulse Ox 99% on R/A; Pain 0/10; ld1 20:04 Body Mass Index 31.63 (94.35 kg, 172.72 cm) ld1 MDM: 23:08 Differential diagnosis: dislocation, open fracture, closed fracture, contusion, mh7 abrasion. Data reviewed: vital signs, nurses notes, lab test result(s), CBC, electrolytes, urinalysis, radiologic studies, plain films, ultrasound. Data interpreted: Pulse oximetry: on room air is 99 %. Interpretation: normal. 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 Response to treatment: the patient's symptoms have markedly improved after treatment. 23:08 ED course: Feels better, well appearing, NAD, VSS, NVI, no focal neurological deficits. mh7 Discussed test results and findings with patient. She requests to be discharged from the ED at this time and will follow up with her doctor.. 23:10 Patient medically screened. [facility] 04/29 20:19 Order name: CBC with Diff; Complete Time: 21:24 [facility] 04/29 20:19 Order name: Basic Metabolic Panel; Complete Time: 23:13 [facility] 04/29 20:19 Order name: LFT's; Complete Time: 23:13 [facility] 04/29 20:19 Order name: Protime (+inr); Complete Time: 21:24 [facility] 04/29 20:19 Order name: Ptt, Activated; Complete Time: 21:24 [facility] 04/29 20:19 Order name: Blood Culture Adult (2) [facility] 04/29 20:19 Order name: Tib Fib Right XRAY; Complete Time: 21:56 [facility] 04/29 20:19 Order name: Foot Right 3 View XRAY; Complete Time: 21:56 [facility] 04/29 20:19 Order name: US Extremity Venous Unilateral Ltd; Complete Time: 21:56 [facility] 04/29 20:36 Order name: Urine Dipstick-Ancillary; Complete Time: 21:24 [facility] 04/29 20:36 Order name: Urine --Ancillary (enter results); Complete Time: 22:43 4 04/29 20:19 Order name: Saline Lock; Complete Time: 20:44 [facility] 04/29 20:19 Order name: Urine Dipstick-Ancillary (obtain specimen); Complete Time: 21:02 [facility] 04/29 20:19 Order name: Urine Test (obtain specimen); Complete Time: 20:45 [facility] Administered Medications: 20:44 Drug: NS 0.9% 1000 ml Route: IV; Rate: 1000 ml; Site: left antecubital; vc1 20:45 Drug: morphine 4 mg Route: IVP; Infused Over: 4 mins; Site: left antecubital; vc1 20:45 Drug: Zofran (Ondansetron) 4 mg Route: IVP; Site: left antecubital; vc1 22:27 Drug: Clindamycin 600 mg Route: IVPB; Infused Over: 30 mins; Site: left antecubital; ld1 Disposition Summary: 04/29/22 23:10 Discharge Ordered Location: Home [facility] Problem: new [facility] Symptoms: have improved [facility] Condition: Stable [facility] Diagnosis - Pain in right lower leg mh7 - Type 2 diabetes mellitus with foot ulcer - right great toe 7 - Type 2 diabetes mellitus with hyperglycemia [facility] Followup: [facility] - With: Private Physician - When: 1 - 2 days - Reason: Worsening of condition, Recheck today's complaints, Continuance of care, Re-evaluation by your physician Followup: [facility] - With: Tomás Villegas DPM - When: 1 - 2 days - Reason: Worsening of condition, Recheck today's complaints Discharge Instructions: - Discharge Summary Sheet [facility] - Diabetes Mellitus and Foot Care [facility] - Musculoskeletal Pain [facility] - Hyperglycemia, [id number] [facility] - Foot Pain [facility] Forms: - Medication Reconciliation Form [facility] - Thank You Letter [facility] - Antibiotic Education [facility] - Prescription Opioid Use [facility] Prescriptions: - Clindamycin HCl 300 mg Oral Capsule - take 1 capsule by ORAL route every 6 hours for 10 days; 40 capsule; Refills: 0, 7 Product Selection Permitted - Tramadol 50 mg Oral Tablet - take 1 tablet by ORAL route every 8 hours as needed; 12 tablet; Refills: 0, [facility] Product Selection Permitted Signatures: Dispatcher [employer] EDMS Saeed Luo, WILDLIFE REHABILITATOR-C WILDLIFE REHABILITATOR-Cla1 Antonino Larsen MD MD 7 Rekha Bailey RN RN ld1 Luisa Zee RN RN vc1 Corrections: (The following items were deleted from the chart) 23:24 23:21 ED course: Feels better, well appearing, NAD, VSS, NVI, no focal neurological [facility] deficits. Discussed test results and findings with patient. She requests to be discharged from the ED at this time and will follow up with her doctor.. [facility]
--- NOTE | 2022-04-29 23:12 | ER ---
Nurse's Notes [facility] Name: Glenna Finney Age: 41 yrs Sex: Female : 1980 Arrival Date: 04/29/2022 Time: 19:29 Bed 12 Private MD: Diagnosis: Pain in right lower leg;Type 2 diabetes mellitus with foot ulcer-right great toe;Type 2 diabetes mellitus with hyperglycemia Presentation: 04/29 20:04 Chief complaint: Patient states: Diabetic foot ulcer to right great toe. Coronavirus ld1 screen: At this time, the client does not indicate any symptoms associated with coronavirus-19. Ebola Screen: No symptoms or risks identified at this time. Initial Sepsis Screen: Does the patient meet any 2 criteria? No. Patient's initial sepsis screen is negative. Does the patient have a suspected source of infection? No. Patient's initial sepsis screen is negative. Risk Assessment: Do you want to hurt yourself or someone else? Patient reports no desire to harm self or others. Onset of symptoms was April 29, 2022. 20:04 Method Of Arrival: Ambulatory ld1 20:04 Acuity: GIGI 3 ld1 Triage Assessment: 20:05 General: Appears in no apparent distress. comfortable, Behavior is calm, cooperative, ld1 appropriate for age. Pain: Complains of pain in plantar aspect of right first toe Pain does not radiate. Pain currently is 8 out of 10 on a pain scale. EENT: No signs and/or symptoms were reported regarding the EENT system. Neuro: Level of Consciousness is awake, alert, obeys commands, Oriented to person, place, time, situation. Cardiovascular: Capillary refill < 3 seconds Patient's skin is warm and dry. Respiratory: Airway is patent Respiratory effort is even, unlabored. GI: Abdomen is flat, non-distended. : No signs and/or symptoms were reported regarding the genitourinary system. Derm: Wound noted right foot. 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 - Social history:: Smoking status: Patient denies any tobacco usage or history of. Patient/guardian denies using alcohol. Screenin:27 Abuse screen: Denies threats or abuse. Denies injuries from another. Nutritional ld1 screening: No deficits noted. Tuberculosis screening: No symptoms or risk factors identified. Fall Risk None identified. Assessment: 22:27 Reassessment: Patient is alert, oriented x 3, equal unlabored respirations, skin ld1 warm/dry/pink. See triage assessment. Patient denies pain at this time. 23:33 Reassessment: See triage assessment. ld1 Vital Signs: 20:04 BP 168 / 96; Pulse 95; Resp 18; Temp 97.5(TE); Pulse Ox 96% on R/A; Weight 94.35 kg; ld1 Height 5 ft. 8 in. (172.72 cm); Pain 6/10; 21:59 BP 143 / 85; Pulse 88; Resp 18; Pulse Ox 98% on R/A; oe 22:27 BP 141 / 89; Pulse 84; Resp 18; Pulse Ox 99% on R/A; Pain 0/10; ld1 23:33 BP 139 / 86; Pulse 81; Resp 18; Pulse Ox 99% on R/A; Pain 0/10; ld1 20:04 Body Mass Index 31.63 (94.35 kg, 172.72 cm) ld1 ED Course: 19:29 Patient arrived in ED. bp1 20:05 Triage completed. ld1 20:05 Antonino Larsen MD is Attending Physician. 7 20:05 Arm band placed on right wrist. ld1 20:44 Blood Culture Adult (2) Sent. zm 20:44 Protime (+inr) Sent. zm 20:44 Ptt, Activated Sent. zm 20:44 LFT's Sent. zm 20:44 Basic Metabolic Panel Sent. zm 20:44 CBC with Diff Sent. zm 20:55 Inserted saline lock: 20 gauge in left antecubital area, using aseptic technique. Blood zm collected. 21:21 US Extremity Venous Unilateral Ltd In Process Unspecified. EDMS 21:26 Tib Fib Right XRAY In Process Unspecified. EDMS 21:26 Foot Right 3 View XRAY In Process Unspecified. EDMS 22:27 Patient has correct armband on for positive identification. Placed in gown. Bed in low ld1 position. Call light in reach. Side rails up X2. nurse monitoring on. Pulse ox on. NIBP on. Door closed. Noise minimized. Warm blanket given. 22:27 No provider procedures requiring assistance completed. ld1 23:09 Tomás Villegas DPM is Referral Physician. [facility] 23:33 Rekha Bailey, RN is Primary Nurse. ld1 23:33 IV discontinued, intact, bleeding controlled, No redness/swelling at site. ld1 Administered Medications: 20:44 Drug: NS 0.9% 1000 ml Route: IV; Rate: 1000 ml; Site: left antecubital; vc1 20:45 Drug: morphine 4 mg Route: IVP; Infused Over: 4 mins; Site: left antecubital; vc1 20:45 Drug: Zofran (Ondansetron) 4 mg Route: IVP; Site: left antecubital; vc1 22:27 Drug: Clindamycin 600 mg Route: IVPB; Infused Over: 30 mins; Site: left antecubital; ld1 Medication: 22:27 VIS not applicable for this client. ld1 Outcome: 23:10 Discharge ordered by . [facility] 23:33 Discharged to home ambulatory. ld1 23:33 Condition: stable 23:33 Discharge instructions given to patient, Instructed on discharge instructions, follow up and referral plans. medication usage, Demonstrated understanding of instructions, follow-up care, medications, Prescriptions given X 2. 23:33 Patient left the ED. ld1 Signatures: Dispatcher [employer] EDMS Buster Carter Brittany bp1 Holmes, Maurice, MD MD [facility] Rekha Bailey, RN RN ld1 Luisa Zee RN RN 1 Perla Lou
[2022-04-29 23:52] VITALS: TEMP 97.5
[2022-04-29 23:54] VITALS: O2SAT 99
[2022-04-29 23:56] VITALS: BP 139/86
== END 2022-04-29 23:33 | disposition home or self-care (01) ==
LOC: ER 19:27
DX: M79.661 Pain in right lower leg (principal); E11.621 Type 2 diabetes mellitus with foot ulcer; E11.65 Type 2 diabetes mellitus with hyperglycemia; L97.518 Non-pressure chronic ulcer of other part of right foot with other specified severity; I10 Essential (primary) hypertension
CPT/HCPCS: 36415; 80048; 80076; 81003; 81025; 85025; 85610; 85730; 87040; 93971; 96374; 96375; 99284; J2405; J7030

== ENCOUNTER 2023-07-08 12:44 | Emergency (ER) | payer OTHER, SELFPAY ==
--- OUTSIDE RECORDS SUMMARY | 2023-07-08 12:51 | XMS REPORT | Continuity of Care Document ---
:1980 Author Organization [facility] t Address [address] [place] [address] Care Team Providers Name Role Phone PCP, PATIENT DOES NOT HAVE A Primary Care Physician Unavaila Lorena Mari Attending Clinician Unavailable EDDOC, GENERIC FOR EDM Attending Clinician Unavailable ESHA CUI Attending Clinician Unavailable Esha Cui DO Attending Clinician VIVIANE MCKEON Attending Clinician Unavailable Viviane Conti Attending Clinician Doctor Unassigned, [place] Attending Clinician Unavailable FRANK SAMPSON Attending Clinician Unavailable FRANK SAMPSON Attending Clinician Unavailable Edgardo Jim DO Attending Clinician Frank Sampson DO Attending Clinician MO QUINTERO Attending Clinician Unavailable Mo Quintero MD Attending Clinician , Adc Surg Spec Procedure Attending Clinician Unavailable Amelia Herr Admitting Clinician Unavailable Physician, No Primary or Family Admitting Clinician UnavailESHA Ho Admitting Clinician Unavailable Payers Payer Name Policy Type Policy Number Effective Date Expiration Date S ourfang CIGNA II [id number] 2016 00:00:00 Problems Condition Condition Condition Status Onset Resolution Last Treating Co mments Source Name Details Category Date Date Treatment Clinician Date Well woman Well woman Disease Active 2016-11 U nivers exam with exam with 0-12 ity of routine routine 00:00: [place] gynecologi gynecologi 00 Me dical kellie exam kellie exam Branch Uncontroll Uncontroll Disease Active 2016-11 U nivers ed type 2 ed type 2 0-12 [...] the ons ons original. 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 Elevated Elevated Disease Active 2013-11 Unive rs blood blood 12-12 ity of pressure pressure 00:00: [place] reading reading 00 Medical without without Branch diagnosis diagnosis of of hypertensi hypertensi on on Dysmenorrh Dysmenorrh Disease Active 2013-11 U nivers ea ea 12-12 ity of 00:00: [place] 00 Medical Branch Allergies, Adverse Reactions, Alerts Allergy Allergy Status Severity Reaction(s) Onset Inactive Treating Comm ents Source Name Type Date Date Clinician No Known DA Active [facility] Allergie 12-17 Clear s 00:00: Rose 00 [facility] NO KNOWN Drug Active Univers ALLERGIE Class ity of S [facility] [place] [facility] Social History Social Habit Start Date Stop Date Quantity Comments Source Exposure to Not sure [facility] SARS-CoV-2 [place] Medical (event) Branch History of Smoker University of tobacco use [facility] [place] [facility] Alcohol intake 2020-11-26 2020-11-26 Current University of 00:00:00 00:00:00 non-drinker of [facility] alcohol Branch (finding) Tobacco use and 2020-08-21 2020-08-21 Never used Universit y of exposure 00:00:00 00:00:00 [facility] [place] [facility] Sex Ass[birth year] At [birth year] Universit y of 00:00:00 00:00:00 [facility] [place] [facility] Smoking Status Start Date Stop Date Source Former smoker 2020-08-21 00:00:00 2020-08-21 00:00:00 Universi ty of [facility] [place] [facility] Medications Ordered Filled Start Stop Current Ordering Indication Dosage Frequency Signature Comments Components Source Medication Medication Date Date Medication? Clinician (SIG) Name Name TAKE 3 2021-0 No CAPSULES BY 6-21 MOUTH THREE 00:00: TIMES DAILY 00 FOR 7 DAYS TAKE 3 2021-0 No CAPSULES BY 6-21 MOUTH THREE 00:00: TIMES DAILY 00 FOR 7 DAYS furosemide 2021-0 No 1mg 20 mg 6-18 tablet 00:00: 00 furosemide 2-0 No 1mg 20 mg 6-18 tablet 00:00: 00 Dose 2-0 No Unknown 3-18 00:00: 00 Dose 2022-0 No Unknown 3-18 00:00: 00 Dose 2022-0 No Unknown 3-18 00:00: 00 Dose 2022-0 No Unknown 3-18 00:00: 00 Dose 2022-0 No Unknown 3-18 00:00: 00 Dose 2022-0 No Unknown 3-18 00:00: 00 Dose 2022-0 No Unknown 3-18 00:00: 00 Dose 2022-0 No Unknown 3-18 00:00: 00 Dose 2022-0 No Unknown 3-18 00:00: 00 Dose 2022-0 No Unknown 3-18 00:00: 00 Dose 2022-0 No Unknown 3-18 00:00: 00 Dose 2022-0 No Unknown 3-18 00:00: 00 Dose 2022-0 No Unknown 3-18 00:00: 00 Dose 2022-0 No Unknown 3-18 00:00: 00 Dose 2022-0 No Unknown 3-18 00:00: 00 Dose 2022-0 No Unknown 3-18 00:00: 00 Dose 2022-0 No Unknown 3-18 00:00: 00 Dose 2022-0 No Unknown 3-18 00:00: 00 Dose 2022-0 No Unknown 3-18 00:00: 00 Dose 2022-0 No Unknown 3-18 00:00: 00 Dose 2022-0 No Unknown 3-18 00:00: 00 Dose 2022-0 No Unknown 3-18 00:00: 00 Dose 2022-0 No Unknown 3-18 00:00: 00 Dose 2022-0 No Unknown 3-18 00:00: 00 Dose 2022-0 No Unknown 3-18 00:00: 00 Dose 2022-0 No Unknown 3-18 00:00: 00 Dose 2022-0 No Unknown 3-18 00:00: 00 Dose 2022-0 No Unknown 3-18 00:00: 00 Dose 2022-0 No Unknown 3-18 00:00: 00 Dose 2022-0 No Unknown 3-18 00:00: 00 Dose 2022-0 No Unknown 3-18 00:00: 00 Dose 2022-0 No Unknown 3-18 00:00: 00 Dose 2022-0 No Unknown 3-18 00:00: 00 Dose 2022-0 No Unknown 3-18 00:00: 00 Dose 2022-0 No Unknown 3-18 00:00: 00 Dose 2022-0 No Unknown 3-18 00:00: 00 Dose 2022-0 No Unknown 3-18 00:00: 00 Dose 2022-0 No Unknown 3-18 00:00: 00 Dose 2022-0 No Unknown 3-18 00:00: 00 Dose 2022-0 No Unknown 3-18 00:00: 00 Dose 2022-0 No Unknown 3-18 00:00: 00 Dose 2022-0 No Unknown 3-18 00:00: 00 Dose 2022-0 No Unknown 3-18 00:00: 00 Dose 2022-0 No Unknown 3-18 00:00: 00 Dose 2022-0 No Unknown 3-18 00:00: 00 Dose 2022-0 No Unknown 3-18 00:00: 00 Dose 2022-0 No Unknown 3-18 00:00: 00 Dose 2022-0 No Unknown 3-18 00:00: 00 Dose 2022-0 No Unknown 3-18 00:00: 00 Dose 2022-0 No Unknown 3-18 00:00: 00 Dose 2022-0 No Unknown 3-18 00:00: 00 Dose 2022-0 No Unknown 3-18 00:00: 00 Dose 2022-0 No Unknown 3-18 00:00: 00 Dose 2022-0 No Unknown 3-18 00:00: 00 Dose 2022-0 No Unknown 3-18 00:00: 00 Dose 2022-0 No Unknown 3-18 00:00: 00 Dose 2022-0 No Unknown 3-18 00:00: 00 Dose 2022-0 No Unknown 3-18 00:00: 00 Dose 2022-0 No Unknown 3-18 00:00: 00 Dose 2022-0 No Unknown 3-18 00:00: 00 Dose 2022-0 No Unknown 3-18 00:00: 00 Dose 2022-0 No Unknown 3-18 00:00: 00 Dose 2022-0 No Unknown 3-18 00:00: 00 Dose 2022-0 No Unknown 3-18 00:00: 00 Dose 2022-0 No Unknown 3-18 00:00: 00 Dose 2022-0 No Unknown 3-18 00:00: 00 Dose 2022-0 No Unknown 3-18 00:00: 00 Dose 2022-0 No Unknown 3-18 00:00: 00 Dose 2022-0 No Unknown 3-18 00:00: 00 Dose 2022-0 No Unknown 3-18 00:00: 00 Dose 2022-0 No Unknown 3-18 00:00: 00 Dose 2022-0 No Unknown 3-18 00:00: 00 Dose 2022-0 No Unknown 3-18 00:00: 00 Dose 2022-0 No Unknown 3-18 00:00: 00 Dose 2022-0 No Unknown 3-18 00:00: 00 Dose 2022-0 No Unknown 3-18 00:00: 00 Dose 2022-0 No Unknown 3-18 00:00: 00 Dose 2022-0 No Unknown 3-18 00:00: 00 Dose 2022-0 No Unknown 3-18 00:00: 00 Dose 2022-0 No Unknown 3-18 00:00: 00 Dose 2022-0 No Unknown 3-18 00:00: 00 Dose 2022-0 No Unknown 3-18 00:00: 00 Dose 2022-0 No Unknown 3-18 00:00: 00 Dose 2022-0 No Unknown 3-18 00:00: 00 Dose 2022-0 No Unknown 3-18 00:00: 00 Dose 2022-0 No Unknown 3-18 00:00: 00 Dose 2022-0 No Unknown 3-18 00:00: 00 Dose 2022-0 No Unknown 3-18 00:00: 00 Dose 2022-0 No Unknown 3-18 00:00: 00 Dose 2022-0 No Unknown 3-18 00:00: 00 Dose 2022-0 No Unknown 3-18 00:00: 00 Dose 2022-0 No Unknown 3-18 00:00: 00 Dose 2022-0 No Unknown 3-18 00:00: 00 Dose 2022-0 No Unknown 3-18 00:00: 00 Dose 2022-0 No Unknown 3-18 00:00: 00 Dose 2022-0 No Unknown 3-18 00:00: 00 Dose 2022-0 No Unknown 3-18 00:00: 00 Dose 2022-0 No Unknown 3-18 00:00: 00 Dose 2022-0 No Unknown 3-18 00:00: 00 Dose 2022-0 No Unknown 3-18 00:00: 00 Dose 2022-0 No Unknown 3-18 00:00: 00 Dose 2022-0 No Unknown 3-18 00:00: 00 Dose 2022-0 No Unknown 3-18 00:00: 00 Dose 2022-0 No Unknown 3-18 00:00: 00 Dose 2022-0 No Unknown 3-18 00:00: 00 Dose 2022-0 No Unknown 3-18 00:00: 00 Dose 2022-0 No Unknown 3-18 00:00: 00 Dose 2022-0 No Unknown 3-18 00:00: 00 Dose 2022-0 No Unknown 3-18 00:00: 00 Dose 2022-0 No Unknown 3-18 00:00: 00 Dose 2022-0 No Unknown 3-18 00:00: 00 Dose 2022-0 No Unknown 3-18 00:00: 00 Dose 2022-0 No Unknown 3-18 00:00: 00 Dose 2022-0 No Unknown 3-18 00:00: 00 Dose 2022-0 No Unknown 3-18 00:00: 00 Dose 2022-0 No Unknown 3-18 00:00: 00 Dose 2022-0 No Unknown 3-18 00:00: 00 Dose 2022-0 No Unknown 3-18 00:00: 00 Dose 2022-0 No Unknown 3-18 00:00: 00 Dose 2022-0 No Unknown 3-18 00:00: 00 Dose 2022-0 No Unknown 3-18 00:00: 00 Dose 2022-0 No Unknown 3-18 00:00: 00 Dose 2022-0 No Unknown 3-18 00:00: 00 Dose 2022-0 No Unknown 3-18 00:00: 00 Dose 2022-0 No Unknown 3-18 00:00: 00 Dose 2022-0 No Unknown 3-18 00:00: 00 Dose 2022-0 No Unknown 3-18 00:00: 00 Dose 2022-0 No Unknown 3-18 00:00: 00 Dose 2022-0 No Unknown 3-18 00:00: 00 Dose 2022-0 No Unknown 3-18 00:00: 00 Dose 2022-0 No Unknown 3-18 00:00: 00 Dose 2022-0 No Unknown 3-18 00:00: 00 Dose 2022-0 No Unknown 3-18 00:00: 00 Dose 2022-0 No Unknown 3-18 00:00: 00 Dose 2022-0 No Unknown 3-18 00:00: 00 Dose 2022-0 No Unknown 3-18 00:00: 00 Dose 2022-0 No Unknown 3-18 00:00: 00 Dose 2022-0 No Unknown 3-18 00:00: 00 Dose 2022-0 No Unknown 3-18 00:00: 00 Dose 2022-0 No Unknown 3-18 00:00: 00 Dose 2022-0 No Unknown 3-18 00:00: 00 Dose 2022-0 No Unknown 3-18 00:00: 00 Dose 2022-0 No Unknown 3-18 00:00: 00 Dose 2022-0 No Unknown 3-18 00:00: 00 Dose 2022-0 No Unknown 3-18 00:00: 00 Dose 2022-0 No Unknown 3-18 00:00: 00 Dose 2022-0 No Unknown 3-18 00:00: 00 Dose 2022-0 No Unknown 3-18 00:00: 00 Dose 2022-0 No Unknown 3-18 00:00: 00 Dose 2022-0 No Unknown 3-18 00:00: 00 Dose 2022-0 No Unknown 3-18 00:00: 00 Dose 2022-0 No Unknown 3-18 00:00: 00 Dose 2022-0 No Unknown 3-18 00:00: 00 Dose 2022-0 No Unknown 3-18 00:00: 00 Dose 2022-0 No Unknown 3-18 00:00: 00 Dose 2022-0 No Unknown 3-18 00:00: 00 Dose 2022-0 No Unknown 3-18 00:00: 00 Dose 2022-0 No Unknown 3-18 00:00: 00 Dose 2022-0 No Unknown 3-18 00:00: 00 Dose 2022-0 No Unknown 3-18 00:00: 00 Dose 2022-0 No Unknown 3-18 00:00: 00 Dose 2022-0 No Unknown 3-18 00:00: 00 Dose 2022-0 No Unknown 3-18 00:00: 00 Dose 2022-0 No Unknown 3-18 00:00: 00 Dose 2022-0 No Unknown 3-18 00:00: 00 Dose 2022-0 No Unknown 3-18 00:00: 00 Dose 2022-0 No Unknown 3-18 00:00: 00 Dose 2022-0 No Unknown 3-18 00:00: 00 Dose 2022-0 No Unknown 3-18 00:00: 00 Dose 2022-0 No Unknown 3-18 00:00: 00 Dose 2022-0 No Unknown 3-18 00:00: 00 Dose 2022-0 No Unknown 3-18 00:00: 00 Dose 2022-0 No Unknown 3-18 00:00: 00 Dose 2022-0 No Unknown 3-18 00:00: 00 Dose 2022-0 No Unknown 3-18 00:00: 00 Dose 2022-0 No Unknown 3-18 00:00: 00 Dose 2022-0 No Unknown 3-18 00:00: 00 Dose 2022-0 No Unknown 3-18 00:00: 00 Dose 2022-0 No Unknown 3-18 00:00: 00 Dose 2022-0 No Unknown 3-18 00:00: 00 Dose 2022-0 No Unknown 3-18 00:00: 00 Dose 2022-0 No Unknown 3-18 00:00: 00 Dose 2022-0 No Unknown 3-18 00:00: 00 Dose 2022-0 No Unknown 3-18 00:00: 00 Dose 2022-0 No Unknown 3-18 00:00: 00 Dose 2022-0 No Unknown 3-18 00:00: 00 Dose 2022-0 No Unknown 3-18 00:00: 00 Dose 2022-0 No Unknown 3-18 00:00: 00 Dose 2022-0 No Unknown 3-18 00:00: 00 Dose 2022-0 No Unknown 3-18 00:00: 00 Dose 2022-0 No Unknown 3-18 00:00: 00 Dose 2022-0 No Unknown 3-18 00:00: 00 Dose 2022-0 No Unknown 3-18 00:00: 00 Dose 2022-0 No Unknown 3-18 00:00: 00 Dose 2022-0 No Unknown 3-18 00:00: 00 Dose 2022-0 No Unknown 3-18 00:00: 00 Dose 2022-0 No Unknown 3-18 00:00: 00 Dose 2022-0 No Unknown 3-18 00:00: 00 Dose 2022-0 No Unknown 3-18 00:00: 00 Dose 2022-0 No Unknown 3-18 00:00: 00 Dose 2022-0 No Unknown 3-18 00:00: 00 Dose 2022-0 No Unknown 3-18 00:00: 00 Dose 2022-0 No Unknown 3-18 00:00: 00 Dose 2022-0 No Unknown 3-18 00:00: 00 Dose 2022-0 No Unknown 3-18 00:00: 00 Dose 2022-0 No Unknown 3-18 00:00: 00 Dose 2022-0 No Unknown 3-18 00:00: 00 Dose 2022-0 No Unknown 3-18 00:00: 00 Dose 2022-0 No Unknown 3-18 00:00: 00 Dose 2022-0 No Unknown 3-18 00:00: 00 Dose 2022-0 No Unknown 3-18 00:00: 00 Dose 2022-0 No Unknown 3-18 00:00: 00 Dose 2022-0 No Unknown 3-18 00:00: 00 Dose 2022-0 No Unknown 3-18 00:00: 00 Dose 2022-0 No Unknown 3-18 00:00: 00 Dose 2022-0 No Unknown 3-18 00:00: 00 Dose 2022-0 No Unknown 3-18 00:00: 00 Dose 2022-0 No Unknown 3-18 00:00: 00 Dose 2022-0 No Unknown 3-18 00:00: 00 Dose 2022-0 No Unknown 3-18 00:00: 00 Dose 2022-0 No Unknown 3-18 00:00: 00 Dose 2022-0 No Unknown 3-18 00:00: 00 Dose 2022-0 No Unknown 3-18 00:00: 00 Dose 2022-0 No Unknown 3-18 00:00: 00 Dose 2022-0 No Unknown 3-18 00:00: 00 Dose 2022-0 No Unknown 3-18 00:00: 00 Dose 2022-0 No Unknown 3-18 00:00: 00 Dose 2022-0 No Unknown 3-18 00:00: 00 Dose 2022-0 No Unknown 3-18 00:00: 00 Dose 2022-0 No Unknown 3-18 00:00: 00 Dose 2022-0 No Unknown 3-18 00:00: 00 Dose 2022-0 No Unknown 3-18 00:00: 00 Dose 2022-0 No Unknown 3-18 00:00: 00 Dose 2022-0 No Unknown 3-18 00:00: 00 Dose 2022-0 No Unknown 3-18 00:00: 00 Dose 2022-0 No Unknown 3-18 00:00: 00 Dose 2022-0 No Unknown 3-18 00:00: 00 Dose 2022-0 No Unknown 3-18 00:00: 00 Dose 2022-0 No Unknown 3-18 00:00: 00 Dose 2022-0 No Unknown 3-18 00:00: 00 Dose 2022-0 No Unknown 3-18 00:00: 00 Dose 2022-0 No Unknown 3-18 00:00: 00 Dose 2022-0 No Unknown 3-18 00:00: 00 Dose 2022-0 No Unknown 3-18 00:00: 00 Dose 2022-0 No Unknown 3-18 00:00: 00 Dose 2022-0 No Unknown 3-18 00:00: 00 Dose 2022-0 No Unknown 3-18 00:00: 00 Dose 2022-0 No Unknown 3-18 00:00: 00 Dose 2022-0 No Unknown 3-18 00:00: 00 Dose 2022-0 No Unknown 3-18 00:00: 00 Dose 2022-0 No Unknown 3-18 00:00: 00 Dose 2022-0 No Unknown 3-18 00:00: 00 Dose 2022-0 No Unknown 3-18 00:00: 00 Dose 2022-0 No Unknown 3-18 00:00: 00 Dose 2022-0 No Unknown 3-18 00:00: 00 Dose 2022-0 No Unknown 3-18 00:00: 00 Dose 2022-0 No Unknown 3-18 00:00: 00 Dose 2022-0 No Unknown 3-18 00:00: 00 Dose 2022-0 No Unknown 3-18 00:00: 00 Dose 2022-0 No Unknown 3-18 00:00: 00 Dose 2022-0 No Unknown 3-18 00:00: 00 Dose 2022-0 No Unknown 3-18 00:00: 00 Dose 2022-0 No Unknown 3-18 00:00: 00 Dose 2022-0 No Unknown 3-18 00:00: 00 Dose 2022-0 No Unknown 3-18 00:00: 00 Dose 2022-0 No Unknown 3-18 00:00: 00 Dose 2022-0 No Unknown 3-18 00:00: 00 Dose 2022-0 No Unknown 3-18 00:00: 00 Dose 2022-0 No Unknown 3-18 00:00: 00 Dose 2022-0 No Unknown 3-18 00:00: 00 Dose 2022-0 No Unknown 3-18 00:00: 00 Dose 2022-0 No Unknown 3-18 00:00: 00 Dose 2022-0 No Unknown 3-18 00:00: 00 Dose 2022-0 No Unknown 3-18 00:00: 00 Dose 2022-0 No Unknown 3-18 00:00: 00 Dose 2022-0 No Unknown 3-18 00:00: 00 Dose 2022-0 No Unknown 3-18 00:00: 00 Dose 2022-0 No Unknown 3-18 00:00: 00 Dose 2022-0 No Unknown 3-18 00:00: 00 Dose 2022-0 No Unknown 3-18 00:00: 00 Dose 2022-0 No Unknown 3-04 00:00: 00 Dose 2022-0 No Unknown 3-04 00:00: 00 Dose 2022-0 No Unknown 3-04 00:00: 00 Dose 2022-0 No Unknown 3-04 00:00: 00 Dose 2022-0 No Unknown 3-04 00:00: 00 Dose 2022-0 No Unknown 3-04 00:00: 00 Dose 2022-0 No Unknown 3-04 00:00: 00 Dose 2022-0 No Unknown 3-04 00:00: 00 Dose 2022-0 No Unknown 3-04 00:00: 00 Dose 2022-0 No Unknown 3-04 00:00: 00 Dose 2022-0 No Unknown 3-04 00:00: 00 Dose 2022-0 No Unknown 3-04 00:00: 00 Dose 2022-0 No Unknown 3-04 00:00: 00 Dose 2022-0 No Unknown 3-04 00:00: 00 Dose 2022-0 No Unknown 3-04 00:00: 00 Dose 2022-0 No Unknown 3-04 00:00: 00 Dose 2022-0 No Unknown 3-04 00:00: 00 Dose 2022-0 No Unknown 3-04 00:00: 00 Dose 2022-0 No Unknown 3-04 00:00: 00 Dose 2022-0 No Unknown 3-04 00:00: 00 Dose 2022-0 No Unknown 3-04 00:00: 00 Dose 2022-0 No Unknown 3-04 00:00: 00 Dose 2022-0 No Unknown 3-04 00:00: 00 Dose 2022-0 No Unknown 3-04 00:00: 00 Dose 2022-0 No Unknown 3-04 00:00: 00 Dose 2022-0 No Unknown 3-04 00:00: 00 Dose 2022-0 No Unknown 3-04 00:00: 00 Dose 2022-0 No Unknown 3-04 00:00: 00 Dose 2022-0 No Unknown 3-04 00:00: 00 Dose 2022-0 No Unknown 3-04 00:00: 00 Dose 2022-0 No Unknown 3-04 00:00: 00 Dose 2022-0 No Unknown 3-04 00:00: 00 Dose 2022-0 No Unknown 3-04 00:00: 00 Dose 2022-0 No Unknown 3-04 00:00: 00 Dose 2022-0 No Unknown 3-04 00:00: 00 Dose 2022-0 No Unknown 3-04 00:00: 00 Dose 2022-0 No Unknown 3-04 00:00: 00 Dose 2022-0 No Unknown 3-04 00:00: 00 Dose 2022-0 No Unknown 3-04 00:00: 00 Dose 2022-0 No Unknown 3-04 00:00: 00 Dose 2022-0 No Unknown 3-04 00:00: 00 Dose 2022-0 No Unknown 3-04 00:00: 00 Dose 2022-0 No Unknown 3-04 00:00: 00 Dose 2022-0 No Unknown 3-04 00:00: 00 Dose 2022-0 No Unknown 3-04 00:00: 00 Dose 2022-0 No Unknown 3-04 00:00: 00 Dose 2022-0 No Unknown 3-04 00:00: 00 Dose 2022-0 No Unknown 3-04 00:00: 00 Dose 2022-0 No Unknown 3-04 00:00: 00 Dose 2022-0 No Unknown 3-04 00:00: 00 Dose 2022-0 No Unknown 3-04 00:00: 00 Dose 2022-0 No Unknown 3-04 00:00: 00 Dose 2022-0 No Unknown 3-04 00:00: 00 Dose 2022-0 No Unknown 3-04 00:00: 00 Dose 2022-0 No Unknown 3-04 00:00: 00 Dose 2022-0 No Unknown 3-04 00:00: 00 Dose 2022-0 No Unknown 3-04 00:00: 00 Dose 2022-0 No Unknown 3-04 00:00: 00 Dose 2022-0 No Unknown 3-04 00:00: 00 Dose 2022-0 No Unknown 3-04 00:00: 00 metformin 2021-0 2021- No 1000mg Take 1,000 Univers HCl 12-17- mg by ity of (METFORMIN 14:49: 00:00 mouth 2 [place] ORAL) 01 :00 (two) Medical times Branch daily. glipiZIDE 2021-0 2021- No 10mg Take 10 mg U nivers 10 mg 12-17-28 by mouth 2 ity of tablet 14:49: 00:00 (two) [place] 01 :00 times Medical daily Branch before breakfast and dinner. glipiZIDE Yes [id number] 10mg Take 1 Un irais 10 mg 1-28 tablet by ity of tablet 00:00: mouth 2 (two) Medical times Branch daily before breakfast and dinner. metFORMIN Yes [id number] 500mg Take 1 U nivers 500 mg 1-28 tablet by ity of tablet 00:00: mouth 2 (two) Medical times Branch daily. insulin NPH 2021- No [id number] 10U inject 10 Univers and regular -17 01-28 Units ity of human 7030 00:00: 05:59 under the [place] 100 unit/mL 00 :00 skin 2 Medica l (30) (two) Branch injection times daily before breakfast and dinner for 30 days. clindamycin 2021- No [id number] 450mg Take 3 Univers 150 mg 11-28 [id number] capsules ity of capsule 00:00: 05:59 by mouth 3 [place] 00 :00 (three) Medical times Branch daily for 7 days. sulfamethox 2020-0 No 1mg azole 800 9-21 mg-trimetho 00:00: prim 160 mg 00 tablet amoxicillin 2020-0 No 1mg 875 9-21 mg-potassiu 00:00: m 00 clavulanate 125 mg tablet sulfamethox 2020-0 No 1mg azole 800 9-21 mg-trimetho 00:00: prim 160 mg 00 tablet amoxicillin 2020-0 No 1mg 875 9-21 mg-potassiu 00:00: m 00 clavulanate 125 mg tablet Novolin 2020-0 No 10unit/ 70/30 U-100 8-31 mL Insulin 100 00:00: (70-30) unit/mL 00 subcutaneou s suspension metformin 2020-0 No 1mg 1,000 mg 8-31 tablet 00:00: 00 glipizide 2020-0 No 2mg 10 mg 8-31 tablet 00:00: 00 ProAir HFA 2020-0 No 2mcg/ac 90 8-31 tuation mcg/actuati 00:00: on aerosol 00 inhaler Novolin 2020-0 No 10unit/ 70/30 U-100 8-31 mL Insulin 100 00:00: (70-30) unit/mL 00 subcutaneou s suspension metformin 2020-0 No 1mg 1,000 mg 8-31 tablet 00:00: 00 glipizide 2020-0 No 2mg 10 mg 8-31 tablet 00:00: 00 ProAir HFA 2020-0 No 2mcg/ac 90 8-31 tuation mcg/actuati 00:00: on aerosol 00 inhaler ibuprofen 2020-0 No 1mg 800 mg 1-08 tablet 00:00: 00 Dose 2020-0 No Unknown 1-08 00:00: 00 nitrofurant 2020-0 No 1mg oin 1-08 macrocrysta 00:00: l 100 mg 00 capsule ibuprofen 2020-0 No 1mg 800 mg 1-08 tablet 00:00: 00 cyclobenzap 2020-0 No 1mg rine 10 mg 1-08 tablet 00:00: 00 nitrofurant 2020-0 No 1mg oin 1-08 macrocrysta 00:00: l 100 mg 00 capsule AirDuo 2019-1 No 1mcg/ac RespiClick 1-04 tuation 232 mcg-14 00:00: mcg/actuati 00 on breath activated AirDuo 2020-1 No 1mcg/ac RespiClick 1-04 tuation 232 mcg-14 00:00: mcg/actuati 00 on breath activated Advair 2019- No 1mcg/do Diskus 500 1-04 se mcg-50 00:00: mcg/dose 00 powder for inhalation levofloxaci 2019- No 1mg n 500 mg 1-04 tablet 00:00: 00 dexamethaso 2019-1 No 1mg ne 4 mg 1-04 tablet 00:00: 00 Advair 2019- No 1mcg/do Diskus 500 1-04 se mcg-50 00:00: mcg/dose 00 powder for inhalation levofloxaci 2019- No 1mg n 500 mg 1-04 tablet 00:00: 00 dexamethaso 2020-1 No 1mg ne 4 mg 1-04 tablet 00:00: 00 ALBUTEROL 2019- Yes 1{puff} Inhale 1 U nivers INHALE 0-16 Puff. ity of 16:02: [address] metformin 2019- Yes 1000mg Take 1,000 Univers HCl 0-16 mg by ity of (METFORMIN 16:02: [place] (two) Medical times Branch daily. glipiZIDE 2019- Yes 10mg Take 10 mg Un [place]ais 10 mg 0-16 by mouth 2 ity of tablet 16:02: (two) [place] [id number] times Medical daily Branch before breakfast and dinner. lisinopriL 2019- Yes 10mg Take 10 mg U nivers 10 mg 0-16 by mouth ity of tablet 16:02: daily. [address] Branch aspirin 325 2019- Yes 325mg Take 325 U nivers mg tablet 0-16 mg by ity of 16:02: mouth [place] 58 daily. Medical Branch ALBUTEROL 2019-11 Yes 1{puff} Inhale 1 U nivers INHALE 0-16 Puff. ity of 16:02: [address] Branch metformin 2019- Yes 1000mg Take 1,000 Univers HCl 0-16 mg by ity of (METFORMIN 16:02: [place] (two) Medical times Branch daily. glipiZIDE 2019-11 Yes 10mg Take 10 mg Un [place] 10 mg 0-16 by mouth 2 ity of tablet 16:02: (two) [address] Medical daily Branch before breakfast and dinner. lisinopriL 2019- Yes 10mg Take 10 mg U nivers 10 mg 0-16 by mouth ity of tablet 16:02: daily. [address] aspirin 325 2019- Yes 325mg Take 325 U nivers mg tablet 0-16 mg by ity of 16:02: mouth [place] 58 daily. Medical Branch ALBUTEROL 2019- Yes 1{puff} Inhale 1 U nivers INHALE 0-16 Puff. ity of 16:02: [address] Branch metformin 2020- Yes 1000mg Take 1,000 Univers HCl 0-16 mg by ity of (METFORMIN 16:02: [place] (two) Medical times Branch daily. glipiZIDE 2019- Yes 10mg Take 10 mg [place] 10 mg 0-16 by mouth 2 ity of tablet 16:02: (two) [place] [id number] times Medical daily Branch before breakfast and dinner. lisinopriL 2019- Yes 10mg Take 10 mg U nivers 10 mg 0-16 by mouth ity of tablet 16:02: daily. [address] Branch aspirin 325 2019- Yes 325mg Take 325 U nivers mg tablet 0-16 mg by ity of 16:02: mouth [place] 58 daily. Medical Branch ALBUTEROL 2019-11 Yes 1{puff} Inhale 1 U nivers INHALE 0-16 Puff. ity of 16:02: [address] Branch metformin 2019-11 Yes 1000mg Take 1,000 [facility] HCl 0-16 mg by ity of (METFORMIN 16:02: [place] (two) Medical times Branch daily. glipiZIDE 2019-11 Yes 10mg Take 10 mg [place] 10 mg 0-16 by mouth 2 ity of tablet 16:02: (two) [address] Medical daily Branch before breakfast and dinner. lisinopriL 2019-11 Yes 10mg Take 10 mg U nivers 10 mg 0-16 by mouth ity of tablet 16:02: daily. [address] aspirin 325 2019-11 Yes 325mg Take 325 U nivers mg tablet 0-16 mg by ity of 16:02: mouth [place] 58 daily. Medical Branch ALBUTEROL 2019-11 Yes 1{puff} Inhale 1 U nivers INHALE 0-16 Puff. ity of 16:02: [address] metformin 2019-11 Yes 1000mg Take 1,000 [facility] HCl 0-16 mg by ity of (METFORMIN 16:02: [place] (two) Medical times Branch daily. glipiZIDE 2019-11 Yes 10mg Take 10 mg [place] 10 mg 0-16 by mouth 2 ity of tablet 16:02: (two) [address] Medical daily Branch before breakfast and dinner. lisinopriL 2019-11 Yes 10mg Take 10 mg U nivers 10 mg 0-16 by mouth ity of tablet 16:02: daily. [address] aspirin 325 2019-11 Yes 325mg Take 325 U nivers mg tablet 0-16 mg by ity of 16:02: mouth [place] 58 daily. Medical Branch ALBUTEROL 2019-11 Yes 1{puff} Inhale 1 U nivers INHALE 0-16 Puff. ity of 16:02: [address] Branch metformin 2019- Yes 1000mg Take 1,000 [facility] HCl 0-16 mg by it[facility] of (METFORMIN 16:02: [place] (two) Medical times Branch daily. glipiZIDE 2020- Yes 10mg Take 10 mg [place] 10 mg 0-16 by mouth 2 ity of tablet 16:02: (two) [place] [address] times Medical daily Branch before breakfast and dinner. lisinopriL 2020- Yes 10mg Take 10 mg U nivers 10 mg 0-16 by mouth ity of tablet 16:02: daily. [address] Branch aspirin 325 2020- Yes 325mg Take 325 U nivers mg tablet 0-16 mg by ity of 16:02: mouth [place] 58 daily. Medical Branch ALBUTEROL 2019- Yes 1{puff} Inhale 1 U nivers INHALE 0-16 Puff. ity of 16:02: [address] metformin 2020- Yes 1000mg Take 1,000 [facility] HCl 0-16 mg by it[facility] of (METFORMIN 16:02: [place] (two) Medical times Branch daily. glipiZIDE 2019- Yes 10mg Take 10 mg [place] 10 mg 0-16 by mouth 2 ity of tablet 16:02: (two) [address] Medical daily Branch before breakfast and dinner. lisinopriL 2019- Yes 10mg Take 10 mg U nivers 10 mg 0-16 by mouth ity of tablet 16:02: daily. [address] aspirin 325 2019- Yes 325mg Take 325 U nivers mg tablet 0-16 mg by ity of 16:02: mouth [place] 58 daily. Medical Branch ALBUTEROL 2019- Yes 1{puff} Inhale 1 U nivers INHALE 0-16 Puff. ity of 16:02: [address] metformin 2020- Yes 1000mg Take 1,000 Univers HCl 0-16 mg by ity of (METFORMIN 16:02: [place] (two) Medical times Branch daily. glipiZIDE 2020- Yes 10mg Take 10 mg Un [place] 10 mg 0-16 by mouth 2 ity of tablet 16:02: (two) [address] Medical daily Branch before breakfast and dinner. lisinopriL 2019- Yes 10mg Take 10 mg U nivers 10 mg 0-16 by mouth ity of tablet 16:02: daily. [address] aspirin 325 2019-11 Yes 325mg Take 325 U nivers mg tablet 0-16 mg by ity of 16:02: mouth [place] 58 daily. Medical Branch ALBUTEROL 2019-11 Yes 1{puff} Inhale 1 U nivers INHALE 0-16 Puff. ity of 16:02: [address] metformin 2019-11 Yes 1000mg Take 1,000 Univers HCl 0-16 mg by ity of (METFORMIN 16:02: [place] (two) Medical times Branch daily. glipiZIDE 2019-11 Yes 10mg Take 10 mg Un [place] 10 mg 0-16 by mouth 2 ity of tablet 16:02: (two) [address] daily Branch before breakfast and dinner. lisinopriL 2019-11 Yes 10mg Take 10 mg U nivers 10 mg 0-16 by mouth ity of tablet 16:02: daily. [address] aspirin 325 2019-11 Yes 325mg Take 325 U nivers mg tablet 0-16 mg by ity of 16:02: mouth [place] [address] daily. Medical Branch ALBUTEROL 2019-11 Yes 1{puff} Inhale 1 U nivers INHALE 0-16 Puff. ity of 16:02: [address] metformin 2019-11 Yes 1000mg Take 1,000 Univers HCl 0-16 mg by ity of (METFORMIN 16:02: [place] (two) Medical times [place] daily. glipiZIDE 2019-11 Yes 10mg Take 10 mg Un [place] 10 mg 0-16 by mouth 2 ity of tablet 16:02: (two) [address] Medical daily Branch before breakfast and dinner. lisinopriL 2019-11 Yes 10mg Take 10 mg U nivers 10 mg 0-16 by mouth ity of tablet 16:02: daily. [address] aspirin 325 2019-11 Yes 325mg Take 325 U nivers mg tablet 0-16 mg by ity of 16:02: mouth [place] daily. Medical Branch ALBUTEROL 2019-11 Yes 1{puff} Inhale 1 U nivers INHALE 0-16 Puff. ity of 11:02: [address] metformin 2019-11 Yes 1000mg Take 1,000 Univers HCl 0-16 mg by ity of (METFORMIN 11:02: [place] (two) Medical times Branch daily. glipiZIDE 2019- Yes 10mg Take 10 mg [place] 10 mg 0-16 by mouth 2 ity of tablet 11:02: (two) [place] [address] times Medical daily Branch before breakfast and dinner. lisinopriL 2019- Yes 10mg Take 10 mg U nivers 10 mg 0-16 by mouth ity of tablet 11:02: daily. [address] Branch aspirin 325 2019-11 Yes 325mg Take 325 U nivers mg tablet 0-16 mg by ity of 11:02: mouth [place] 58 daily. Medical Branch ALBUTEROL 2019-11 Yes 1{puff} Inhale 1 U nivers INHALE 0-16 Puff. ity of 11:02: [address] Branch metformin 2019-11 Yes 1000mg Take 1,000 Univers HCl 0-16 mg by ity of (METFORMIN 11:02: [place] (two) Medical times Branch daily. glipiZIDE 2019-11 Yes 10mg Take 10 mg [place] 10 mg 0-16 by mouth 2 ity of tablet 11:02: (two) [place] [address] times Medical daily Branch before breakfast and dinner. lisinopriL 2019-11 Yes 10mg Take 10 mg U nivers 10 mg 0-16 by mouth ity of tablet 11:02: daily. [address] aspirin 325 2019-11 Yes 325mg Take 325 U nivers mg tablet 0-16 mg by ity of 11:02: mouth [place] 58 daily. Medical Branch ALBUTEROL 2019-11 Yes 1{puff} Inhale 1 U nivers INHALE 0-16 Puff. ity of 11:02: [address] Branch lisinopriL 2019-11 Yes 10mg Take 10 mg U nivers 10 mg 0-16 by mouth ity of tablet 11:02: daily. [address] aspirin 325 2019-11 Yes 325mg Take 325 U nivers mg tablet 0-16 mg by ity of 11:02: mouth [place] 58 daily. Medical Branch ProAir HFA 2019-11 No 2mcg/ac 90 0-13 tuation mcg/actuati 00:00: on aerosol 00 inhaler mupirocin 2 2019-11 No 1% % topical 0-13 ointment 00:00: 00 clindamycin 2019-11 No 1mg HCl 300 mg 0-13 capsule 00:00: 00 ProAir HFA 2019-11 No 2mcg/ac 90 0-13 tuation mcg/actuati 00:00: on aerosol 00 inhaler mupirocin 2 2019-11 No 1% % topical 0-13 ointment 00:00: 00 Dose 2019-11 No Unknown 0-13 00:00: 00 glipiZIDE 2019-11 Yes 10mg Take 10 mg [place] 10 mg 0-02 by mouth 2 ity of tablet 16:46: (two) [address] Medical daily Branch before breakfast and dinner. lisinopriL 2019-11 Yes 10mg Take 10 mg U nivers 10 mg 0-02 by mouth ity of tablet 16:46: daily. [address] Branch aspirin 325 2019-11 Yes 325mg Take 325 U nivers mg tablet 0-02 mg by ity of 16:46: mouth [place] daily. Medical Branch glipiZIDE 2019-11 Yes 10mg Take 10 mg [place] 10 mg 0-02 by mouth 2 ity of tablet 16:46: (two) [place] [id number] times Medical daily Branch before breakfast and dinner. lisinopriL 2019-11 Yes 10mg Take 10 mg U nivers 10 mg 0-02 by mouth ity of tablet 16:46: daily. [address] Branch aspirin 325 2019-11 Yes 325mg Take 325 U nivers mg tablet 0-02 mg by ity of 16:46: mouth [place] 17 daily. Medical Branch glipiZIDE 2019-11 Yes 10mg Take 10 mg [place] 10 mg 0-02 by mouth 2 ity of tablet 16:46: (two) [address] Medical daily Branch before breakfast and dinner. lisinopriL 2019-11 Yes 10mg Take 10 mg U nivers 10 mg 0-02 by mouth ity of tablet 16:46: daily. [address] Branch aspirin 325 2019-11 Yes 325mg Take 325 U nivers mg tablet 0-02 mg by ity of 16:46: mouth [place] 17 daily. Medical Branch ALBUTEROL 2019-11 Yes 1{puff} Inhale 1 U nivers INHALE 0-02 Puff. ity of 16:46: [place] [address] Medical Branch metformin 2019-11 Yes 1000mg Take 1,000 [facility] HCl 0-02 mg by ity of (METFORMIN 16:46: [place] 16 (two) Medical times Branch daily. ALBUTEROL 2019- Yes 1{puff} Inhale 1 U nivers INHALE 0-02 Puff. ity of 16:46: [address] metformin 2020- Yes 1000mg Take 1,000 [facility] HCl 0-02 mg by ity of (METFORMIN 16:46: mouth [place] 16 (two) Medical times Branch daily. ALBUTEROL 2019- Yes 1{puff} Inhale 1 U nivers INHALE 0-02 Puff. ity of 16:46: [address] metformin 2020- Yes 1000mg Take 1,000 [facility] HCl 0-02 mg by ity of (METFORMIN 16:46: mouth [place] 16 (two) Medical times Branch daily. fluticasone 2020- Yes [id number] 1{puff} Inhale 1 Univers propion-rowena 0-02 Puff 2 ity of meteroL 00:00: (two) [place] (AIRDUO 00 times Medical RESPICLICK) daily. Branch 113-14 mcg/actuati on AePB fluticasone 2020- Yes [id number] 1{puff} Inhale 1 Univers propion-rowena 0-02 Puff 2 ity of meteroL 00:00: (two) [place] (AIRDUO 00 times Medical RESPICLICK) daily. Branch 113-14 mcg/actuati on AePB fluticasone 2020-1 Yes [id number] 1{puff} Inhale 1 Univers propion-rowena 0-02 Puff 2 ity of meteroL 00:00: (two) [place] (AIRDUO 00 times Medical RESPICLICK) daily. Branch 113-14 mcg/actuati on AePB fluticasone 2020-1 Yes [id number] 1{puff} Inhale 1 Univers propion-rowena 0-02 Puff 2 ity of meteroL 00:00: (two) [place] (AIRDUO 00 times Medical RESPICLICK) daily. Branch 113-14 mcg/actuati on AePB fluticasone 2020-1 Yes [id number] 1{puff} Inhale 1 Univers propion-rowena 0-02 Puff 2 ity of meteroL 00:00: (two) [place] (AIRDUO 00 times Medical RESPICLICK) daily. Branch 113-14 mcg/actuati on AePB fluticasone 2020-1 Yes [id number] 1{puff} Inhale 1 Univers propion-rowena 0-02 Puff 2 ity of meteroL 00:00: (two) [place] (AIRDUO 00 times Medical RESPICLICK) daily. Branch 113-14 mcg/actuati on AePB fluticasone 2020-1 Yes [id number] 1{puff} Inhale 1 Univers propion-rowena 0-02 Puff 2 ity of meteroL 00:00: (two) [place] (AIRDUO 00 times Medical RESPICLICK) daily. Branch 113-14 mcg/actuati on AePB fluticasone 2020-1 Yes [id number] 1{puff} Inhale 1 Univers propion-rowena 0-02 Puff 2 ity of meteroL 00:00: (two) [place] (AIRDUO 00 times Medical RESPICLICK) daily. Branch 113-14 mcg/actuati on AePB fluticasone 2020-1 Yes [id number] 1{puff} Inhale 1 Univers propion-rowena 0-02 Puff 2 ity of meteroL 00:00: (two) [place] (AIRDUO 00 times Medical RESPICLICK) daily. Branch 113-14 mcg/actuati on AePB fluticasone 2020-1 Yes [id number] 1{puff} Inhale 1 Univers propion-rowena 0-02 Puff 2 ity of meteroL 00:00: (two) [place] (AIRDUO 00 times Medical RESPICLICK) daily. Branch 113-14 mcg/actuati on AePB fluticasone 2020-1 Yes [id number] 1{puff} Inhale 1 Univers propion-rowena 0-02 Puff 2 ity of meteroL 00:00: (two) [place] (AIRDUO 00 times Medical RESPICLICK) daily. Branch 113-14 mcg/actuati on AePB fluticasone 2020-1 Yes [id number] 1{puff} Inhale 1 Univers propion-rowena 0-02 Puff 2 ity of meteroL 00:00: (two) [place] (AIRDUO 00 times Medical RESPICLICK) daily. Branch 113-14 mcg/actuati on AePB fluticasone 2020-1 Yes [id number] 1{puff} Inhale 1 Univers propion-rownea 0-02 Puff 2 ity of meteroL 00:00: (two) [place] (AIRDUO 00 times Medical RESPICLICK) daily. Branch 113-14 mcg/actuati on AePB fluticasone 2020-1 Yes [id number] 1{puff} Inhale 1 Univers propion-rowena 0-02 Puff 2 ity of meteroL 00:00: (two) [place] (AIRDUO 00 times Medical RESPICLICK) daily. Branch 113-14 mcg/actuati on AePB fluticasone 2020-1 Yes [id number] 1{puff} Inhale 1 Univers propion-rowena 0-02 Puff 2 ity of meteroL 00:00: (two) [place] (AIRDUO 00 times Medical RESPICLICK) daily. Branch 113-14 mcg/actuati on AePB fluticasone 2020-1 Yes [id number] 1{puff} Inhale 1 Univers propion-rowena 0-02 Puff 2 ity of meteroL 00:00: (two) [place] (AIRDUO 00 times Medical RESPICLICK) daily. Branch 113-14 mcg/actuati on AePB Novolin 2020-0 No 10unit/ 70/30 U-100 9-08 mL Insulin 100 00:00: (70-30) unit/mL 00 subcutaneou s suspension aspirin 325 2020-0 No 1mg mg tablet 9 00:00: 00 prednisone 2020-0 No 1mg 20 mg 9-08 tablet 00:00: 00 Novolin 2020-0 No 10unit/ 70/30 U-100 9-08 mL Insulin 100 00:00: (70-30) unit/mL 00 subcutaneou s suspension aspirin 325 2020-0 No 1mg mg tablet 07-28 00:00: 00 prednisone 2020-0 No 1mg 20 mg 9-08 tablet 00:00: 00 lisinopril 2020-0 No 1mg 20 mg 7-11 tablet 00:00: 00 Dose 2020-0 No Unknown 7-11 00:00: 00 metformin 2020-0 No 1mg 1,000 mg 7-11 tablet 00:00: 00 lisinopril 2020-0 No 1mg 20 mg 7-11 tablet 00:00: 00 Dose 2020-0 No Unknown 7-11 00:00: 00 metformin 2020-0 No 1mg 1,000 mg 7-11 tablet 00:00: 00 omeprazole 2020-0 No 1mg 40 mg 6-09 capsule,del 00:00: ayed 00 release omeprazole 2020-0 No 1mg 40 mg 6-09 capsule,del 00:00: ayed 00 release lisinopril 2020-0 No 1mg 20 mg 4-25 tablet 00:00: 00 Macrobid 2020-0 No 1mg 100 mg 4-25 capsule 00:00: 00 lisinopril 2020-0 No 1mg 20 mg 4-25 tablet 00:00: 00 Macrobid 2020-0 No 1mg 100 mg 4-25 capsule 00:00: 00 Tamiflu 75 2020-0 No 1mg mg capsule 3-18 00:00: 00 promethazin 2020-0 No 10mg/5 e-DM 6.25 3-18 mL mg-15 mg/5 00:00: mL oral 00 syrup Tamiflu 75 2020-0 No 1mg mg capsule 3-18 00:00: 00 promethazin 2020-0 No 10mg/5 e-DM 6.25 3-18 mL mg-15 mg/5 00:00: mL oral 00 syrup ondansetron 2020-0 No 1mg HCl 4 mg 3-02 tablet 00:00: 00 ondansetron 2020-0 No 1mg HCl 4 mg 3-02 tablet 00:00: 00 loratadine 2020-0 No 1mg 10 mg 1-14 tablet 00:00: 00 amoxicillin 2020-0 No 1mg 500 mg 1-14 tablet 00:00: 00 loratadine 2020-0 No 1mg 10 mg 1-14 tablet 00:00: 00 amoxicillin 2020-0 No 1mg 500 mg 1-14 tablet 00:00: 00 lisinopril 2018-1 No 1mg 10 mg 0-03 tablet 00:00: 00 glipizide 2018-1 No 1mg 10 mg 0-03 tablet 00:00: 00 metformin 2018-1 No 1mg 1,000 mg 0-03 tablet 00:00: 00 cyclobenzap 2018-1 No 1mg rine 10 mg 0-03 tablet 00:00: 00 glipizide 2018-1 No 1mg 10 mg 0-03 tablet 00:00: 00 metformin 2018-1 No 1mg 1,000 mg 0-03 tablet 00:00: 00 lisinopril 2018-1 No 1mg 10 mg 0-03 tablet 00:00: 00 glipizide 2018-1 No 1mg 10 mg 0-03 tablet 00:00: 00 metformin 2018-1 No 1mg 1,000 mg 0-03 tablet 00:00: 00 cyclobenzap 2018-1 No 1mg rine 10 mg 0-03 tablet 00:00: 00 glipizide 2018-1 No 1mg 10 mg 0-03 tablet 00:00: 00 metformin 2018-1 No 1mg 1,000 mg 0-03 tablet 00:00: 00 metformin 2018-0 No 1mg 1,000 mg 6-11 tablet 00:00: 00 metformin 2018-0 No 1mg 1,000 mg 6-11 tablet 00:00: 00 Novolin R 2018-0 No unit/mL Regular 6-01 U-100 00:00: Insulin 100 00 unit/mL injection solution Novolin R 2018-0 No unit/mL Regular 6-01 U-100 00:00: Insulin 100 00 unit/mL injection solution triamcinolo 2018-0 No 1% ne 6-01 acetonide 00:00: 0.1 % 00 topical cream lovastatin 2018-0 No 1mg 10 mg 6-01 tablet 00:00: 00 Novolin R 2018-0 No unit/mL Regular 6-01 U-100 00:00: Insulin 100 00 unit/mL injection solution Novolin R 2018-0 No unit/mL Regular 6-01 U-100 00:00: Insulin 100 00 unit/mL injection solution triamcinolo 2018-0 No 1% ne 6-01 acetonide 00:00: 0.1 % 00 topical cream lovastatin 2018-0 No 1mg 10 mg 6-01 tablet 00:00: 00 prednisone 2018-0 No 1mg 20 mg 2-21 tablet 00:00: 00 amoxicillin 2018-0 No 1mg 500 mg 2-21 tablet 00:00: 00 prednisone 2018-0 No 1mg 20 mg 2-21 tablet 00:00: 00 amoxicillin 2018-0 No 1mg 500 mg 2-21 tablet 00:00: 00 lovastatin 2017-0 No 1mg 10 mg 6-14 tablet 00:00: 00 glimepiride 2017-0 No 1mg 2 mg tablet 6-14 00:00: 00 metformin 2017-0 No 1mg 1,000 mg 6-14 tablet 00:00: 00 lovastatin 2017-0 No 1mg 10 mg 6-14 tablet 00:00: 00 glimepiride 2017-0 No 1mg 2 mg tablet 14 00:00: 00 metformin 2017-0 No 1mg 1,000 mg 6-14 tablet 00:00: 00 Novolin R 2017-0 No unit/mL Regular 6-13 U-100 00:00: Insulin 100 00 unit/mL injection solution lovastatin 2017-0 No 1mg 10 mg 6-13 tablet 00:00: 00 glimepiride 2017-0 No 1mg 2 mg tablet 05-02 00:00: 00 lisinopril 2017-0 No 1mg 5 mg tablet 05-02 00:00: 00 metformin 2017-0 No 1mg 1,000 mg 6-13 tablet 00:00: 00 Novolin R 2017-0 No unit/mL Regular 6-13 U-100 00:00: Insulin 100 00 unit/mL injection solution lovastatin 2017-0 No 1mg 10 mg 6-13 tablet 00:00: 00 glimepiride 2017-0 No 1mg 2 mg tablet 05-02 00:00: 00 lisinopril 2017-0 No 1mg 5 mg tablet 05-02 00:00: 00 metformin 2017-0 No 1mg 1,000 mg 6-13 tablet 00:00: 00 glimepiride 2016-0 No 1mg 2 mg tablet 07-29 00:00: 00 glimepiride 2016-0 No 1mg 2 mg tablet 07-29 00:00: 00 metformin 2016-0 No 1mg 1,000 mg 9-09 tablet 00:00: 00 metformin 2016-0 No 1mg 1,000 mg 9-09 tablet 00:00: 00 No known No Univers medications it of [facility] [place] [facility] Immunizations Ordered Filled Immunization Date Status Comments [facility] e Immunization Name Name Maycol MENDEZ-19 2021-03-26 Completed Vaccine 00:00:00 Maycol COVID-19 2021-03-26 Completed Vaccine 00:00:00 Juan Ramona COVID-19 2021-02-26 Completed Vaccine 00:00:00 Maycol COVID-19 2021-02-26 Completed Vaccine 00:00:00 MMR 2014-10-22 Completed University of 00:00:00 [facility] [place] [facility] MMR 2014-10-22 Completed University of 00:00:00 [facility] MMR 2014-10-22 Completed University of 00:00:00 [facility] Branch MMR 2014-10-22 Completed University of 00:00:00 [facility] Branch MMR 2014-10-22 Completed University of 00:00:00 [facility] [place] [facility] MMR 2014-10-22 Completed University of 00:00:00 [facility] Branch MMR 2014-10-22 Completed University of 00:00:00 [facility] Branch MMR 2014-10-22 Completed University of 00:00:00 [facility] Branch MMR 2014-10-22 Completed University of 00:00:00 [facility] [place] [facility] MMR 2014-10-22 Completed University of 00:00:00 [facility] [place] [facility] MMR 2014-10-22 Completed University of 00:00:00 [facility] [place] [facility] MMR 2014-10-22 Completed University of 00:00:00 [facility] [place] [facility] MMR 2014-10-22 Completed University of 00:00:00 [facility] [place] [facility] MMR 2014-10-22 Completed University of 00:00:00 [facility] [place] [facility] MMR 2014-10-22 Completed University of 00:00:00 [facility] [place] [facility] MMR 2014-10-22 Completed University of 00:00:00 [facility] [place] [facility] MMR 2014-10-22 Completed University of 00:00:00 [facility] [place] [facility] Influenza Virus 2011-11-22 Completed Universit y of Vaccine 00:00:00 [facility] [place] [facility] Pneumococcal 2011-11-22 Completed University o f Polysaccharide, 00:00:00 [place] Med ical PPSV23 (PNEUMOVAX) [place] Influenza Virus 2011-11-22 Completed Universit y of Vaccine 00:00:00 [facility] [place] [facility] Pneumococcal 2011-11-22 Completed University o f Polysaccharide, 00:00:00 [place] [facility] ical PPSV23 (PNEUMOVAX) [place] Influenza Virus 2011-11-22 Completed Universit y of Vaccine 00:00:00 [facility] [place] [facility] Pneumococcal 2011-11-22 Completed University o f Polysaccharide, 00:00:00 [place] [facility] ical PPSV23 (PNEUMOVAX) [place] Influenza Virus 2011-11-22 Completed Universit y of Vaccine 00:00:00 [facility] [place] [facility] Pneumococcal 2011-11-22 Completed University o f Polysaccharide, 00:00:00 [place] [facility] ical PPSV23 (PNEUMOVAX) [place] Influenza Virus 2011-11-22 Completed Universit y of Vaccine 00:00:00 [facility] [place] [facility] Pneumococcal 2011-11-22 Completed University o f Polysaccharide, 00:00:00 [place] [facility] ical PPSV23 (PNEUMOVAX) Branch Influenza Virus 2011-11-22 Completed Universit y of Vaccine 00:00:00 [facility] [place] [facility] Pneumococcal 2011-11-22 Completed University o f Polysaccharide, 00:00:00 [place] [facility] ical PPSV23 (PNEUMOVAX) Branch Influenza Virus 2011-11-22 Completed Universit y of Vaccine 00:00:00 [facility] [place] [facility] Influenza Virus 2011-11-22 Completed Universit y of Vaccine 00:00:00 [facility] [place] [facility] Pneumococcal 2011-11-22 Completed University o f Polysaccharide, 00:00:00 [place] [facility] ical PPSV23 (PNEUMOVAX) Branch Pneumococcal 2011-11-22 Completed University o f Polysaccharide, 00:00:00 [place] [facility] ical PPSV23 (PNEUMOVAX) Branch Influenza Virus 2011-11-22 Completed Universit y of Vaccine 00:00:00 [facility] [place] [facility] Pneumococcal 2011-11-22 Completed University o f Polysaccharide, 00:00:00 [place] [facility] ical PPSV23 (PNEUMOVAX) Branch Influenza Virus 2011-11-22 Completed Universit y of Vaccine 00:00:00 [facility] [place] [facility] Pneumococcal 2011-11-22 Completed University o f Polysaccharide, 00:00:00 [place] [facility] ical PPSV23 (PNEUMOVAX) Branch Influenza Virus 2011-11-22 Completed Universit y of Vaccine 00:00:00 [facility] [place] [facility] Pneumococcal 2011-11-22 Completed University o f Polysaccharide, 00:00:00 [place] [facility] ical PPSV23 (PNEUMOVAX) Branch Influenza Virus 2011-11-22 Completed Universit y of Vaccine 00:00:00 [facility] [place] [facility] Pneumococcal 2011-11-22 Completed University o f Polysaccharide, 00:00:00 [place] [facility] ical PPSV23 (PNEUMOVAX) Branch Influenza Virus 2011-11-22 Completed Universit y of Vaccine 00:00:00 [facility] [place] [facility] Pneumococcal 2011-11-22 Completed University o f Polysaccharide, 00:00:00 [place] [facility] ical PPSV23 (PNEUMOVAX) Branch Influenza Virus 2011-11-22 Completed Universit y of Vaccine 00:00:00 [facility] [place] [facility] Pneumococcal 2011-11-22 Completed University o f Polysaccharide, 00:00:00 [place] [facility] ical PPSV23 (PNEUMOVAX) Branch Influenza Virus 2011-11-22 Completed Universit y of Vaccine 00:00:00 [facility] [place] [facility] Pneumococcal 2011-11-22 Completed University o f Polysaccharide, 00:00:00 [place] [facility] ical PPSV23 (PNEUMOVAX) Branch Influenza Virus 2011-11-22 Completed Universit y of Vaccine 00:00:00 [facility] [place] [facility] Pneumococcal 2011-11-22 Completed University o f Polysaccharide, 00:00:00 [place] [facility] ical PPSV23 (PNEUMOVAX) Branch Influenza Virus 2011-11-22 Completed Universit y of Vaccine 00:00:00 [facility] [place] [facility] Pneumococcal 2011-11-22 Completed University o f Polysaccharide, 00:00:00 [facility] ical PPSV23 (PNEUMOVAX) Branch MMR 2011-11-09 Completed University of 00:00:00 [facility] [place] [facility] MMR 2011-11-09 Completed University of 00:00:00 [facility] [place] [facility] MMR 2011-11-09 Completed University of 00:00:00 [facility] [place] [facility] MMR 2011-11-09 Completed University of 00:00:00 [facility] [place] [facility] MMR 2011-11-09 Completed University of 00:00:00 [facility] [place] [facility] MMR 2011-11-09 Completed University of 00:00:00 [facility] [place] [facility] MMR 2011-11-09 Completed University of 00:00:00 [facility] [place] [facility] MMR 2011-11-09 Completed University of 00:00:00 [facility] [place] [facility] MMR 2011-11-09 Completed University of 00:00:00 [facility] [place] [facility] MMR 2011-11-09 Completed University of 00:00:00 [facility] [place] [facility] MMR 2011-11-09 Completed University of 00:00:00 [facility] [place] [facility] MMR 2011-11-09 Completed University of 00:00:00 [facility] [place] [facility] MMR 2011-11-09 Completed University of 00:00:00 [facility] [place] [facility] MMR 2011-11-09 Completed University of 00:00:00 [facility] [place] [facility] MMR 2011-11-09 Completed University of 00:00:00 [facility] [place] [facility] MMR 2011-11-09 Completed University of 00:00:00 [facility] [place] [facility] MMR 2011-11-09 Completed University of 00:00:00 [facility] [place] [facility] Hep B, Adol or Pedi 2004-06-19 Completed Unive rsity of Dosage 00:00:00 [facility] [place] [facility] Hep B, Adol or Pedi 2004-06-19 Completed Unive rsity of Dosage 00:00:00 [facility] [place] [facility] Hep B, Adol or Pedi 2004-06-19 Completed [...] 2004-06-19 Completed Unive rsity of Dosage 00:00:00 [place] [facility] Hep B, Adol or Pedi 2004-06-19 Completed Unive rsity of Dosage 00:00:00 [place] [facility] Hep B, Adol or Pedi 2004-06-19 Completed Unive rsity of Dosage 00:00:00 [place] [facility] Hep B, Adol or Pedi 2004-06-19 Completed Unive rsity of Dosage 00:00:00 [facility] [place] [facility] Vital Signs Vital Name Observation Time Observation Value Comments Source Systolic blood 2021-12-17 18:22:00 151 mm[Hg] Univer sity of pressure [facility] [place] [facility] Diastolic blood 2021-12-17 18:22:00 88 mm[Hg] Unive rsity of pressure [facility] [place] [facility] Heart rate 2021-12-17 18:22:00 110 /min [facility] Body temperature 2021-12-17 18:22:00 36.33 [place] [facility] [place] [facility] Respiratory rate 2021-12-17 18:22:00 18 /min [facility] [place] [facility] Body weight 2021-12-17 18:22:00 96.616 kg [facility] [place] [facility] BMI 2021-12-17 18:22:00 32.39 kg/m2 [facility] [place] [facility] Oxygen saturation in 2021-12-17 18:22:00 99 /min University of Arterial blood by [facility] Pulse oximetry Branch Systolic blood 2021-11-28 20:35:00 147 mm[Hg] Univer sity of pressure [place] [facility] Diastolic blood 2021-11-28 20:35:00 102 mm[Hg] Unive rsity of pressure [place] [facility] Heart rate 2021-11-28 20:35:00 98 /min [facility] [place] [facility] Body temperature 2021-11-28 20:35:00 37.06 [place] [facility] [place] [facility] Respiratory rate 2021-11-28 20:35:00 18 /min [facility] [place] [facility] Body weight 2021-11-28 20:35:00 96.616 kg [facility] [place] [facility] BMI 2021-11-28 20:35:00 32.39 kg/m2 [facility] [place] [facility] Oxygen saturation in 2021-11-28 20:35:00 99 /min University of Arterial blood by [facility] Pulse oximetry Branch Systolic blood 2020-11-26 19:22:00 156 mm[Hg] Univer sity of pressure [place] [facility] Diastolic blood 2020-11-26 19:22:00 94 mm[Hg] Unive rsity of pressure [place] [facility] Heart rate 2020-11-26 19:18:00 94 /min [facility] [place] [facility] Respiratory rate 2020-11-26 19:18:00 19 /min [facility] [place] [facility] Body height 2020-11-26 19:18:00 172.7 cm [facility] [place] [facility] Body weight 2020-11-26 19:18:00 96.888 kg [facility] [place] [facility] BMI 2020-11-26 19:18:00 32.48 kg/m2 [facility] [place] [facility] Oxygen saturation in 2020-11-26 19:18:00 98 /min University of Arterial blood by [facility] Pulse oximetry Branch Systolic blood 2020-09-11 16:16:00 106 mm[Hg] Univer sity of pressure [facility] Branch Diastolic blood 2020-09-11 16:16:00 70 mm[Hg] Unive rsity of pressure [facility] Heart rate 2020-09-11 16:16:00 110 /min Universi ty of [facility] Body temperature 2020-09-11 16:16:00 36.22 Alexandrea Univ ersity of [facility] Respiratory rate 2020-09-11 16:16:00 18 /min Univ ersity of [facility] Body weight 2020-09-11 16:16:00 99.156 kg Universi ty of [facility] BMI 2020-09-11 16:16:00 34.24 kg/m2 Universi ty of [facility] Systolic blood 2020-09-04 16:01:00 178 mm[Hg] Univer sity of pressure [facility] Diastolic blood 2020-09-04 16:01:00 105 mm[Hg] Unive rsity of pressure [facility] Heart rate 2020-09-04 16:01:00 111 /min Universi ty of [facility] Body temperature 2020-09-04 16:01:00 36.17 Alexandrea Univ [facility] Respiratory rate 2020-09-04 16:01:00 18 /min Univ ersity of [facility] Body height 2020-09-04 16:01:00 170.2 cm Universi ty of [facility] Body weight 2020-09-04 16:01:00 98.431 kg Universi ty of [facility] BMI 2020-09-04 16:01:00 33.99 kg/m2 Universi ty of [facility] Systolic blood 2020-08-21 16:42:00 137 mm[Hg] Univer sity of pressure [facility] Diastolic blood 2020-08-21 16:42:00 91 mm[Hg] Unive rsity of pressure [facility] Heart rate 2020-08-21 16:42:00 105 /min Universi ty of [facility] Body height 2020-08-21 16:42:00 172.7 cm [facility] Body weight 2020-08-21 16:42:00 92.987 kg [facility]i ty of [facility] BMI 2020-08-21 16:42:00 31.17 kg/m2 [facility] Oxygen saturation in 2020-08-21 16:42:00 99 /min University [facility] blood by [facility] Pulse oximetry Branch BP Systolic 2022-05-07 15:30:00 139 mm[Hg] BP Diastolic 2022-05-07 15:30:00 87 mm[Hg] Weight Measured 2022-05-07 15:30:00 208.80 pounds Height Measured 2022-05-07 15:30:00 64.00 inches Body Temperature 2022-05-07 15:30:00 98.20 degrees Heart Rate 2022-05-07 15:30:00 97.00 /min Respiratory Rate 2022-05-07 15:30:00 18.00 /min BP Systolic 2022-03-04 09:29:00 126 mm[Hg] BP Diastolic 2022-03-04 09:29:00 86 mm[Hg] Weight Measured 2022-03-04 09:29:00 212.20 pounds Height Measured 2022-03-04 09:29:00 64.00 inches Body Temperature 2022-03-04 09:29:00 97.20 degrees Heart Rate 2022-03-04 09:29:00 94.00 /min Respiratory Rate 2022-03-04 09:29:00 17.00 /min BP Systolic 2022-02-18 09:32:00 161 mm[Hg] BP Diastolic 2022-02-18 09:32:00 87 mm[Hg] Weight Measured 2022-02-18 09:32:00 212.20 pounds Height Measured 2022-02-18 09:32:00 64.00 inches Body Temperature 2022-02-18 09:32:00 Heart Rate 2022-02-18 09:32:00 107.00 /min Respiratory Rate 2022-02-18 09:32:00 17.00 /min BP Systolic 2022-02-04 10:31:00 131 mm[Hg] BP Diastolic 2022-02-04 10:31:00 86 mm[Hg] Weight Measured 2022-02-04 10:31:00 208.00 pounds Height Measured 2022-02-04 10:31:00 64.00 inches Body Temperature 2022-02-04 10:31:00 Heart Rate 2022-02-04 10:31:00 95.00 /min Respiratory Rate 2022-02-04 10:31:00 BP Systolic 2022-01-21 09:23:00 140 mm[Hg] BP Diastolic 2022-01-21 09:23:00 85 mm[Hg] Weight Measured 2022-01-21 09:23:00 208.00 pounds Height Measured 2022-01-21 09:23:00 64.00 inches Body Temperature 2022-01-21 09:23:00 Heart Rate 2022-01-21 09:23:00 114.00 /min Respiratory Rate 2022-01-21 09:23:00 BP Systolic 2022-01-14 09:37:00 BP Diastolic 2022-01-14 09:37:00 Weight Measured 2022-01-14 09:37:00 Height Measured 2022-01-14 09:37:00 Body Temperature 2022-01-14 09:37:00 Heart Rate 2022-01-14 09:37:00 Respiratory Rate 2022-01-14 09:37:00 BP Systolic 2022-01-14 09:21:00 130 mm[Hg] BP Diastolic 2022-01-14 09:21:00 80 mm[Hg] Weight Measured 2022-01-14 09:21:00 208.00 pounds Height Measured 2022-01-14 09:21:00 64.00 inches Body Temperature 2022-01-14 09:21:00 Heart Rate 2022-01-14 09:21:00 89.00 /min Respiratory Rate 2022-01-14 09:21:00 BP Systolic 2022-01-07 09:47:00 138 mm[Hg] BP Diastolic 2022-01-07 09:47:00 92 mm[Hg] Weight Measured 2022-01-07 09:47:00 208.60 pounds Height Measured 2022-01-07 09:47:00 64.00 inches Body Temperature 2022-01-07 09:47:00 Heart Rate 2022-01-07 09:47:00 98.00 /min Respiratory Rate 2022-01-07 09:47:00 BP Systolic 2021-12-17 10:07:00 172 mm[Hg] BP Diastolic 2021-12-17 10:07:00 123 mm[Hg] Weight Measured 2021-12-17 10:07:00 208.60 pounds Height Measured 2021-12-17 10:07:00 64.00 inches Body Temperature 2021-12-17 10:07:00 Heart Rate 2021-12-17 10:07:00 93.00 /min Respiratory Rate 2021-12-17 10:07:00 BP Systolic 2021-12-08 16:54:00 BP Diastolic 2021-12-08 16:54:00 Weight Measured 2021-12-08 16:54:00 210.40 pounds Height Measured 2021-12-08 16:54:00 64.00 inches Body Temperature 2021-12-08 16:54:00 98.30 degrees Heart Rate 2021-12-08 16:54:00 96.00 /min Respiratory Rate 2021-12-08 16:54:00 16.00 /min Procedures Procedure Date / Time Performing Clinician Source Performed [id number] 2021-12-23 00:00:00 VUCHR.01 [facility] XR FOOT <3 VW LEFT 2021-12-17 19:51:21 Esha Cui [facility] COMP. METABOLIC PANEL 2021-12-17 19:27:00 Esha Cui [facility] ([id number]) [facility] SEDIMENTATION RATE 2021-12-17 19:27:00 Esha Cui [facility] CBC WITH DIFF 2021-12-17 19:27:00 Esha Cui [facility] NOTICE OF PRIVACY 2021-11-28 20:25:48 Doctor Unassigned, No Univ [facility] PRACTICES Name Medical Branch CONSENT/REFUSAL FOR 2021-11-28 20:25:33 [facility] Name [facility] DISCLOSURE AND CONSENT, 2020-09-11 05:01:00 Doctor Unassigned, N o [facility] MEDICAL AND SURGICAL Name Medical [facility] PROCEDURES CONSENT/REFUSAL FOR 2020-08-21 16:23:25 Doctor Un[facility]igned, No [facility] Name Medical Branch Plan of Care Planned Activity Planned Date Details Comments Source Goal Plan of Care Note [code = 49265-3] Goal Plan of Care Note [code = 59897-1] Goal Plan of Care Note [code = 71254-7] Goal Plan of Care Note [code = 55776-5] Goal Plan of Care Note [code = 06174-1] Goal Plan of Care Note [code = 43866-7] Goal Plan of Care Note [code = 03084-3] Goal Plan of Care Note [code = 59448-9] Goal Plan of Care Note [code = 66420-8] Goal Plan of Care Note [code = 61724-9] Goal Plan of Care Note [code = 41373-7] Goal Plan of Care Note [code = 59194-1] Goal Plan of Care Note [code = 83525-9] Goal Plan of Care Note [code = 40724-7] Goal Plan of Care Note [code = 11692-8] Goal Plan of Care Note [code = 52147-0] Goal Plan of Care Note [code = 13789-1] Goal Plan of Care Note [code = 75518-8] Goal Plan of Care Note [code = 69877-6] Goal Plan of Care Note [code = 37575-5] Goal Plan of Care Note [code = 03767-8] Goal Plan of Care Note [code = 47650-9] Goal Plan of Care Note [code = 07929-8] Goal Plan of Care Note [code = 56231-6] Goal Plan of Care Note [code = 46754-8] Goal Plan of Care Note [code = 85737-6] Goal Plan of Care Note [code = 76495-3] Goal Plan of Care Note [code = 25415-6] Goal Plan of Care Note [code = 69547-8] Goal Plan of Care Note [code = 25946-8] Goal Plan of Care Note [code = 87571-4] Goal Plan of Care Note [code = 73754-3] Goal Plan of Care Note [code = 67396-9] Goal Plan of Care Note [code = 18435-2] Goal Plan of Care Note [code = 14434-2] Goal Plan of Care Note [code = 18905-6] Goal Plan of Care Note [code = 13355-0] Goal Plan of Care Note [code = 44113-4] Goal Plan of Care Note [code = 65400-5] Goal Plan of Care Note [code = 66533-4] Goal Plan of Care Note [code = 14351-8] Goal Plan of Care Note [code = 12224-3] Goal Plan of Care Note [code = 15090-7] Goal Plan of Care Note [code = 46789-7] Goal Plan of Care Note [code = 25612-7] Goal Plan of Care Note [code = 99035-6] Goal Plan of Care Note [code = 37537-9] Goal Plan of Care Note [code = 24506-9] Goal Plan of Care Note [code = 33995-9] Goal Plan of Care Note [code = 31515-2] Goal Plan of Care Note [code = 34007-2] Goal Plan of Care Note [code = 23224-6] Goal Plan of Care Note [code = 31418-7] Goal Plan of Care Note [code = 07443-2] Goal Plan of Care Note [code = 46612-8] Goal Plan of Care Note [code = 85305-7] Goal Plan of Care Note [code = 32901-3] Goal Plan of Care Note [code = 80738-1] Goal Plan of Care Note [code = 40604-7] Goal Plan of Care Note [code = 51159-6] Goal Plan of Care Note [code = 02953-3] Goal Plan of Care Note [code = 42045-5] Goal Plan of Care Note [code = 28455-8] Goal Plan of Care Note [code = 15411-4] Goal Plan of Care Note [code = 55880-0] Goal Plan of Care Note [code = 79154-3] Goal Plan of Care Note [code = 50518-0] Goal Plan of Care Note [code = 17428-0] Goal Plan of Care Note [code = 25683-6] Goal Plan of Care Note [code = 49962-4] Goal Plan of Care Note [code = 27194-2] Goal Plan of Care Note [code = 41269-5] Goal Plan of Care Note [code = 84110-7] Goal Plan of Care Note [code = 43186-7] Goal Plan of Care Note [code = 62468-6] Goal Plan of Care Note [code = 01152-7] Goal Plan of Care Note [code = 07138-6] Goal Plan of Care Note [code = 49728-2] Goal Plan of Care Note [code = 64907-0] Goal Plan of Care Note [code = 27709-7] Goal Plan of Care Note [code = 51546-1] Goal Plan of Care Note [code = 48945-5] Goal Plan of Care Note [code = 03223-6] Goal Plan of Care Note [code = 49487-4] Encounters Start End Encounter Admission Attending Care Care Encounter Source Date/Time Date/Time Type Type Clinicians Facility Department ID 2023-01-10 2023-01-10 Outpatient SFA SFA [id number] Caden 16:09:17 16:09:17 0221 F Ori 2022-12-28 2022-12-28 Outpatient SFA SFA [id number] 023 Caden 10:32:22 10:32:22 0208 F Ori 2022-11-05 2022-11-05 Outpatient SFA SFA [id number] 022 Caden 10:07:32 10:07:32 1217 F Ori 2022-10-29 2022-10-29 Outpatient [id number] [id number]-m 00:00:00 00:00:00 Visit [id number] 228-4099-9 -95ad-662 [id number]-[id number] d52d85 2022-07-27 2022-07-27 Outpatient [id number] 3kg1m5-z 00:00:00 00:00:00 Visit j6m9-5wy4 8k2-9tt0-0 -8406-15c [id number] [id number] 2021-12-18 2021-12-23 Emergency EM Chemo, KODIBM MEDI.01 [id number] [facility] 00:48:00 15:45:00 Lorena 72 [facility] 2021-12-17 2021-12-17 Outpatient EDROSENDO, TUCKER LABO [id number] [facility] 23:10:00 23:10:00 GENERIC 03 [facility] 2021-12-17 2021-12-17 Emergency X THEOODRA CUI ERT [id number] Univers 12:27:00 14:57:00 ESHA itmack of [facility] 2021-12-17 2021-12-17 [facility] 1.2.840.114 [id number] Univers 12:27:00 14:57:00 Esha JERONIMO 350.1.13.10 ity of [facility] [place] [id number] [place] 074604 [place] 2021-11-28 2021-11-28 Emergency X MCKEON, [facility] ERT [id number] Univers 14:37:00 18:08:00 VIVIANE ity of [facility] 2021-11-28 2021-11-28 Emergency [facility] 1.2.840.114 [id number] Univers 14:37:00 18:08:00 Viviane KANDACE 350.1.13.10 i ty of [place] 4.2.7.2.686 [facility] [phone] [place] 074604 [place] 2021-11-28 2021-11-28 Orders Doctor [place] 1.2.840.114 [id number] Univers 00:00:00 00:00:00 Only Unassigned, KERRY 350.1.13.10 ity of [place] [facility] 4.2.7.2.686 Justin [id number] [facility] 009 Branch 2021-07-02 2021-07-02 Outpatient R FRANK SAMPSON [facility] 10 [id number] Univers 13:00:00 13:00:00 FRANK SAMPSON i ty of [facility] 2021-02-04 2021-02-04 Patient Hernán [facility] 1.2.840.114 [id number] Univers 00:00:00 00:00:00 Outreach Edgardo PRIMARY 350.1.13.10 i ty of [facility] [place] [id number] [address] dic[address] 2020-11-26 2020-11-26 Office Camilla [facility] 1.2.840.114 [id number] Univers 13:01:30 13:34:48 Visit Frank Jeronimo 350.1.13.10 i ty of [place] [phone] Ia dical nal 085 [facility] 2020-11-26 2020-11-26 Outpatient R FRANK SAMPSON [facility] 10 [id number] Univers 12:40:00 12:40:00 FRANK SAMPSON i ty of [facility] 2020-09-25 2020-09-25 Outpatient Reba ALYSSIA [facility] [id number] Univers 10:15:00 10:15:00 MO coleman [facility] 2020-09-11 2020-09-11 Office Mo Quintero [facility] 1.2.8 40.114 [id number] Univers 10:55:38 13:16:44 Visit Rm, Adc Surg Spec Procedure Kandace 3 50.1.13.10 [place]y [place] [phone] [facility] 188 [facility] 2020-09-11 2020-09-11 Outpatient Reba QUINTERO [facility] [id number] Univers 10:45:00 10:45:00 MO coleman [facility] 2020-09-11 2020-09-11 Orders Doctor [place] 1.2.840.114 [id number] Univers 00:00:00 00:00:00 Only Unassigned, KERRY 350.1.13.10 ity of [place] [facility] 4.2.7.2.686 Justin as [phone] [address] 2020-09-04 2020-09-04 Office Alyssia [facility] 1.2.840.114 [id number] Univers 10:15:26 11:26:31 Visit oM Jeronimo 350.1.13.10 i ty of [place] [phone] Ia dical nal 188 [facility] 2020-09-04 2020-09-04 Outpatient Reba QUINTERO [facility] [id number] Univers 10:00:00 10:00:00 MO rasheedmack [facility] 2020-08-21 2020-08-21 Office Camilla [facility] 1.2.840.114 [id number] Univers 11:24:26 12:03:34 Visit Frank Jeronimo 350.1.13.10 i ty of [place] [phone] Ia dical nal 085 [facility] 2020-08-21 2020-08-21 Outpatient R SAMPSON FRANK [facility] [id number] [facility] 11:20:00 11:20:00 CAMILLA FRANK i ty of [facility] 2020-08-21 2020-08-21 Orders Doctor [place] 1.2.840.114 [id number] Univers 00:00:00 00:00:00 Only Unassigned, KERRY 350.1.13.10 ity of [place] [facility] 4.2.7.2.686 Justin as [phone] [address] Results Test Description Test Time Test Comments Results Result Comments Source ALBUMIN/CREATININE RATIO, URINE, RANDOM 2023-01-12 03:01:49 Test Item Value Reference Range Interpretation Comme nts CREATININE, URINE, CONC. (test 49.9 MG/DL NOT ESTAB code = 2072) ALBUMIN, URINE, RANDOM (test 4.1 MG/DL NOT ESTAB code = 04420) CALC ALBUMIN/CREAT, RND (test 82 MG/G <30 H Note: Albumin/Creatinine ratio code = 23191) reference inte rval reflects ADA and NKF guideli emilia. [facility] has important patho logy staff changes effecti ve 01/18/2023. New patholo gy staff will provide uninter rupted, excellent patient care an d clinical consultation. S ee URL: [email or web address]. UNLESS OTHERWIS E INDICATED, ALL TESTING PERFORM ED AT CLINICAL PATHOLOGY [facility], [facility]. [address] [place] [address] LABORATORY DIRE CTOR: RUDY AMOR M.D. CLIA NUMBER [id number] [place]. [id number] HEMOGLOBIN [id number] 02:57:16 Test Item Value Reference Range Interpretation Comments HEMOGLOBIN A1c (test 10.8 % 4.2-5.6 H AMERIC AN DIABETES code = 30741) ASSOCIATION IDELINES FOR HGB A1C: PREDIABETES/INC REASED RISK . . . . . . . 5 .7-6.4% DIAGNOSIS OF DI ABETES . . . . . . . . . >=6 .5% WITH CONFIRMATION OR APPROPRIATE SYMPTOMS NOTE: ASSAY MAY BE AFFECTED BY HEMOGLOBINOPATH IES (SICKLE CELL ANEMIA, S- C DISEASE, OTHERS) OR DANY FICIALLY LOWERED BY DECR EASED RED CELL SURVIVAL ( HEMOLYTIC ANEMIAS, BLOOD LOSS, ETC.). CONSIDER ALTERN ATE TESTING OR LABORATORY C ONSULTATION. COMPREHENSIVE METABOLIC [id number] 01:19:35 Test Item Value Reference Range Interpretation Comments GLUCOSE (test code = 209 MG/DL 70-99 H 2216) BUN (test code = 13 MG/DL 6-20 2207) CREATININE (test 0.56 MG/DL 0.60-1.30 L code = 221) eGFR (2020 CKD-EPI) 116 >60 (test code = 54538) ML/MIN/1.73 CALC BUN/CREAT (test 23 RATIO 6-28 code = 2235) SODIUM (test code = 142 MEQ/L 405-618 0216) POTASSIUM (test code 4.0 MEQ/L 3.5-5.4 = 2227) CHLORIDE (test code 105 MEQ/L 95-107 = 2214) CARBON DIOXIDE (test 27 MEQ/L 19-31 code = 2206) CALCIUM (test code = 9.4 MG/DL 8.5-10.5 2208) PROTEIN, TOTAL (test 7.5 G/DL 6.1-8.3 code = 222) ALBUMIN (test code = 4.1 G/DL 3.5-5.2 2200) CALC GLOBULIN (test 3.4 G/DL 1.9-3.7 code = 2240) CALC A/G RATIO (test 1.2 RATIO 1.0-2.6 code = 2234) BILIRUBIN, TOTAL 0.4 MG/DL See_Comment [Automated message] (test code = 2207) The syste m which generated this result transmit sukhjinder reference range : <=1.2. The refe rence range was not u sed to interpret th is result as normal/abnormal . ALKALINE PHOSPHATASE 132 U/L 40-113 H (test code = 2204) AST (test code = 18 U/L 9-40 2217) ALT (test code = 19 U/L 5-40 2218) LIPID [id number] 01:19:35 Test Item Value Reference Range Interpretation Comments CHOLESTEROL (test 173 MG/DL <200 code = 2210) TRIGLYCERIDES (test 122 MG/DL <150 code = 2232) HDL CHOLESTEROL (test 63 MG/DL >39 code = 2220) CALC LDL CHOL (test 88 MG/DL <100 NOTE: C ALCULATED LDL code = 2237) IS BASED ON STEVIE-RIOS METHOD WHICHINCLUDES ADJUSTABLE TRIGLYCERIDE:VL DL CHOLESTEROL RAT IO.THIS FACTOR VARIES B Y MEASURED TRIGLY CERIDE AND NON-HDLCHOL ESTEROL CONCENTRATIONS WITH INCREASED CALCU LATED LDL SEENIN HIGH ER TRIGLYCERIDE OR LOWER NON-HDL SPECIME NS. FOR MOREINFORMATION , SEE CLIENT ANNOUNCE MENT AT [email or web address] RISK RATIO LDL/HDL 1.40 RATIO <3.22 (test code = 2238) HEMOGLOBIN [id number] 03:49:54 Test Item Value Reference Range Interpretation Comments HEMOGLOBIN A1c (test 11.6 % 4.2-5.6 H AMERIC AN DIABETES code = 34643) ASSOCIATION IDELINES FOR HGB A1C: PREDIABETES/INC REASED RISK . . . . . . . 5 .7-6.4% DIAGNOSIS OF DI ABETES . . . . . . . . . >=6 .5% WITH CONFIRMATION OR APPROPRIATE SYMPTOMS NOTE: ASSAY MAY BE AFFECTED BY HEMOGLOBINOPATH IES (SICKLE CELL ANEMIA, S- C DISEASE, OTHERS) OR DANY FICIALLY LOWERED BY DECR EASED RED CELL SURVIVAL ( HEMOLYTIC ANEMIAS, BLOOD LOSS, ETC.). CONSIDER ALTERN ATE TESTING OR LABORATORY C ONSULTATION. UNLESS OTHERWIS E INDICATED, ALL TESTING PER FORMED ATCLINICAL PATH [facility], [facility]. [address] [place] [address] LABORATORY DIRE CTOR: Savanah LINARES. CLIA NUMBER [id number] CAP ACCREDITATION N O. [id number] CBC W/AUTO DIFF WITH [id number] 03:15:27 Test Item Value Reference Range Interpretation Comments WBC (test code = 6.6 K/UL 3.5-11.0 1001) RBC (test code = 4.81 M/UL 3.80-5.40 1002) HEMOGLOBIN (test code 13.8 G/DL 11.5-15.5 = 1003) HEMATOCRIT (test code 41.6 % 34.0-45.0 = 1004) MCV (test code = 86.5 fL 80.0-99.0 1005) MCH (test code = 28.7 PG 25.0-33.0 1006) MCHC (test code = 33.2 G/DL 31.0-36.0 1007) RDW (test code = 12.6 % 11.5-15.0 1038) NEUTROPHILS (test 53.9 % code = 1008) LYMPHOCYTES (test 35.4 % code = 1010) MONOCYTES (test code 8.3 % = 1011) EOSINOPHILS (test 1.1 % code = 1012) BASOPHILS (test code 0.5 % = 1013) IMMATURE GRANULOCYTES 0.8 % (test code = 1036) NUCLEATED RBCS (test 0.0 /100 WBC'S See_Comment [Aut omated code = 1065) message] The sy stem which generated this result transmitted reference range : 0.0. The refere nce range was not u sed to interpret th is result as normal/abnormal . PLATELET COUNT (test 235 K/UL 130-400 code = 1015) ABSOLUTE NEUTROPHILS 3.56 K/UL 1.50-7.50 (test code = 1066) ABSOLUTE LYMPHOCYTES 2.33 K/UL 1.00-4.00 (test code = 1067) ABSOLUTE MONOCYTES 0.55 K/UL 0.20-1.00 (test code = 1068) ABSOLUTE EOSINOPHILS 0.07 K/UL 0.00-0.50 (test code = 1040) ABSOLUTE BASOPHILS 0.03 K/UL 0.00-0.20 (test code = 1069) ABS IMMATURE 0.05 K/UL 0.00-0.10 GRANULOCYTES (test code = 1020) ABS NUCLEATED RBCS 0.00 K/UL 0.00-0.11 (test code = 40095) SOFT [id number] 16:54:00 Test Item Value Reference Range Interpretation Comments SOFT TISSUE (test code = SOFTISSUE) RUN DATE: 12/24/21 [facility] PAGE 1 RUN TIME: 1655 Specimen Inquiry RUN USER: INTERFACE PATIENT: GLENNA HUBBARD LOC: GUY U #: [id number] AGE/SX: 41/F ROOM: [facility] RE12/18/21[facility] DR: Lorena Mclain MSN : 76 BED: A DIS: 12/23/21 STATUS: DIS IN TLOC: SPEC #: [id number] RECD: 12/23/21 STATUS: DARRION GANGA #: [id number] TEO: 12/23/[address] [facility] [address]: Grant Laguna DPM ENTERED: 12/23/21 SP TYPE: SOFT MASS OTHR DR: Benjamin Ramirez MD, Padmaja Pam MD Young, Lauren E NPORDERED: GROSS COPIES TO: Benjamin Ramirez MD [address] [place] [address] Amelia Herr MD [address] [place] [id number] Grant Laguna DPM [address] [place] [id number] Rekha Lucio NP [address] [place] [id number] PROCEDURES: GROSS (12/24/21-1133) TISSUES: LEFT FOOT - SOFT TISSUE CLINICAL HISTORY COLLECTION DATE: 12/23/21 LEFT FOOT INFECTED NEUROPATHIC ULCER FINAL DIAGNOSIS Left foot, soft tissue, removal of devitalized soft tissues: SKIN AND SUBCUTANEOUS ADIPOSE TISSUE WITH EXTENSIVE NECROSIS AND ACUTE INFLAMMATION DMW/sm CONTINUED ON NEXT PAGE RUN DATE: 12/24/21 [facility] PAGE 2 RUN TIME: 1655 Specimen Inquiry RUN USER: INTERFACE SPEC #: [id number] PATIENT: GLENNA HUBBARD #[id number] (Continued) --- FINAL DIAGNOSIS (Continued) D 06188 MACROSCOPIC The specimen is received in formalin, labeled with the patient's name, and identified as "soft tissue of left foot". It consists of three mottled appearing uribe and brown fragments of tissue which appears to be necrotic portions of skin. They measure 4.3 x 1.7 x 0.1 cm, 1.3 x 1.1 x 0.1 cm and 1.2 x 0.7 x less than 0.1 cm. Samples of the specimen are submitted for microscopic evaluation in a single cassette. GROSS PERFORMED AT [facility] [address] [place] [address] (p)[phone] MICROSCOPIC All of the stains, including any controls performed, stain appropriately. 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 [Automated mess age] The system [employer] 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 [facility] [id number] 12:13:00 Test Item Value Reference Range Interpretation Comments GLUBED (test code = 174 mg/dL 74-106 H Performe d by certified GLUBED) 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 [facility] [id number] 08:09:00 Test Item Value Reference Range Interpretation Comments GLUBED (test code = 122 mg/dL 74-106 H Performe d by certified GLUBED) 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 [facility] [id number] 06:29:00 Test Item Value Reference Range Interpretation Comments GLUBED (test code = 147 mg/dL 74-106 H Performe d by certified GLUBED) 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 [facility] [id number] 21:14:00 Test Item Value Reference Range Interpretation Comments GLUBED (test code = 233 mg/dL 74-106 H Performe d by certified GLUBED) 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 [facility] [id number] 15:42:00 Test Item Value Reference Range Interpretation Comments GLUBED (test code = 136 mg/dL 74-106 H Performe d by certified GLUBED) 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 [facility] [id number] 11:52:00 Test Item Value Reference Range Interpretation Comments GLUBED (test code = 208 mg/dL 74-106 H Performe d by certified GLUBED) 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 [facility] [id number] 09:02:00 Test Item Value Reference Range Interpretation Comments GLUBED (test code = 186 mg/dL 74-106 H Performe d by certified GLUBED) 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 [facility] - MRI LOW EXT W WO CONT [id number] 08:51:00 [facility])Name: GLENNA HUBBARD : 1980 Sex: F FAX: Benjamin Ramirez MD [phone] [place]: St: [facility] FAX: Amelia Herr FAX: Siddharth Heaton NP [phone] Name: GLENNA HUBBARD [facility] : 1980 Age/S: 41/F [address] Unit #: [id number] Loc: V.3027 [place] [address] Phys: Siddharth Heaton NP Acct: [id number] Dis Date: Status: ADM IN PHONE #: [phone] Exam Date: 12/20/2021 1824 FAX #: [phone] Reason: foot diabetic ulcer, left EXAMS:CPT CODE: [id number] [place] [address] HISTORY: Diabetic foot ulcer. COMPARISON: X-ray from December 17, 2021. Location: [facility]. MRI left foot with without contrast: Diffuse edema of the entire fourth metatarsal bone with slight irregularity of the distal fourth metatarsal. It is extensively hyperintense on the T2-weighted images and hypointense on the T1-weighted images. Oblique fracture line visible in the distal portion. No fracture is visible on the plain x-ray. Following gadolinium intense enhancement of nearly the entire fourth metatarsal bone with sparing of the distal portion. Differential diagnoses includes osteomyelitis versus stress fracture. Correlate clinically. Soft tissue swelling along the dorsum is noted. No drainable abscess collection. Rest of the bone marrow signal isnormal. Visualized ligaments and tendons appear within normal limits. IMPRESSION: Oblique fracture line visible within the distal fourth metatarsal bone with diffuse edema and enhancement of nearly theentire fourth metatarsal bone with soft tissue swelling. Differential diagnosis includes osteomyelitis and stress fracture. Correlate clinically. No drainable abscess. No other fractures or other areas of abnormal enhancement to suggest osteomyelitis either. at 0851 Reported and signed by: Julius Escalante M.D. CC: Benjamin Ramirez MD; Amelia Herr MD; Siddharth Heaton NP Technologist: ABBEY SOMERSRT - MRI Trnscrd Date/Time/By: 12/21/2021 (6499) : By: [email or web address] Orig Print D/T: S: 12/21/2021 (2960) PAGE 1 Signed [id number] 07:34:00 Test Item Value Reference Range Interpretation Comments GLUBED (test code 184 mg/dL 74-106 H Performed by certified = GLUBED) 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~ [id number] 21:38:00 Test Item Value Reference Range Interpretation Comments GLUBED (test code = 218 mg/dL 74-106 H Performe d by certified GLUBED) 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 [facility] [id number] 16:01:00 Test Item Value Reference Range Interpretation Comments VANCOMYCIN (test code = VANCO) 8.3 UG/ML 5.0-45.0 N [id number] 15:54:00 Test Item Value Reference Range Interpretation Comments GLUBED (test code = 228 mg/dL 74-106 H Performe d by certified GLUBED) 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 [facility] [id number] 12:28:00 Test Item Value Reference Range Interpretation Comments GLUBED (test code = 224 mg/dL 74-106 H Performe d by certified GLUBED) 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 [facility] [id number] 08:06:00 Test Item Value Reference Range Interpretation Comments GLUBED (test code = 236 mg/dL 74-106 H Performe d by certified GLUBED) 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 [facility] [id number] 06:13:00 Test Item Value Reference Range Interpretation Comments GLUBED (test code = 265 mg/dL 74-106 H Performe d by certified GLUBED) 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 [facility] [id number] 20:37:00 Test Item Value Reference Range Interpretation Comments GLUBED (test code = 200 mg/dL 74-106 H Performe d by certified GLUBED) 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 [Automated mess age] The system [employer] generated this result transmit sukhjinder reference range [...] ALKP) to change in reagent. 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 [facility]2022-01-29 21:03:00 Test Item Value Reference Range Interpretation Comments GLUBED (test code = 327 mg/dL 74-106 H Performe d by certified GLUBED) 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 [facility]2022-01-29 19:31:00 Test Item Value Reference Range Interpretation Comments GLUBED (test code = 223 mg/dL 74-106 H Performe d by certified GLUBED) 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 [facility]2022-01-29 11:05:00 Test Item Value Reference Range Interpretation Comments GLUBED (test code = 170 mg/dL 74-106 H Performe d by certified GLUBED) 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 [facility]2022-01-29 07:41:00 Test Item Value Reference Range Interpretation Comments GLUBED (test code = 255 mg/dL 74-106 H Performe d by certified GLUBED) 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 [facility]2022-01-29 06:49:00 Test Item Value Reference Range Interpretation Comments GLUBED (test code = 257 mg/dL 74-106 H Performe d by certified GLUBED) 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 [facility] LIPID PROFILE (CORONARY RISK)2021-12-18 03:38:00 Test Item Value Reference Range Interpretation Comments TRIGLYCERIDES (test 145 mg/dL 20-150 N code = TRIG) CHOLESTEROL (test code 156 mg/dL 0-200 N = CHOL) CHOLESTEROL/HDL RATIO 3.0 RATIO 0-4.9 N RISK A SSOCIATED WITH (test code = CHOLHDL) CHOL/H DL RATIOS: Risk Male Female1/2 AVERAGE 3.43 3.27AVERA GE 4.97 4.442X AVERAGE 9.55 7.053X AVERAGE 23.39 11.04 REFERENCE VALUE IS RELATED TO R ISK LEVELS ASRECOMM ENDED BY THE NAT. [place] RT, LUNG, AND BLOOD INST. HDL CHOLESTEROL (test 52 mg/dL 40-60 N code = HDL) LIPOPROTEIN LDL (test 106 mg/dL 100-129 N RN PER HALLIE, CONTACT code = LDL) PHYSICIAN IMMED IATELY IF THIS IS A ST RO[place], AMI OR CAROTID STENOSIS PATIEN T WHEN THE LDL >100 ([address] OCCURENCE, THIS ADMISSION)===== ======= ======= ======= ===Reference In terval: mg/dL mmol/L--------- ------- ------- ------O ptimal <100 <2.6Near/above optimal 100-129 2.6-3.3Borderli ne High 130-159 3.4-4.1 High 160-189 4.1-4. 9Very High >=190 >=4.9========= This LDL result is a direct measurement.=== ====== THYROID STIMULATING [id number] 03:38:00 Test Item Value Reference Range Interpretation Comments THYROID STIMULATING 0.669 uIU/mL 0.36-3.74 N TSH REFE RENCE HORMONE (test code = RANGES: EUTHYROID: TSH) 0.35 - 4.3 mIU/ mL HYPO : > 5.5 mI U/mL HYPER : < 0.35 mIU/mL [id number] 03:28:00 Test Item Value Reference Range Interpretation Comments GLYCOSYLATED HEMOGLOBIN 13.0 % HbA1 SUGG SURINDERD (HA1C) (test code = DIAGNOSI S: HbA1C GLYHGB) (%) ---- ------ Diab etic >6.4Prediabetes 5.7 - 6.4Normal <5.7 ESTIMATED AVERAGE 326 MG/DL GLUCOSE (test code = EAG) COVID 19 INHOUSE [id number] 01:28:00 Test Item Value Reference Range Interpretation Comments COVID 19 INHOUSE AG (test code = NEGATIVE NEGATIVE [id number]) URINALYSIS [id number] 22:30:00 Test Item Value Reference Range Interpretation Comments UA COLOR (test code = Light-Yellow YELLOW COLU) UA APPEARANCE (test CLEAR CLEAR IS THE S AMPLE code = APPU) FROM ER OR L&D? Y IF THE ANSWER I S NO,PLEASE DOCUMENT TWO RN SIGNATURES HERE - by [id number] 12/17/21 9680 UA GLUCOSE DIPSTICK >1000 (4+) mg/dL NEGATIVE [...] Clean Catch- XR FOOT 3 + V [id number] 22:04:00 [facility] ([facility])Name: GLENNA HUBBARD : 1980 Sex: F FAX: Y Zachery Nino APRN [phone] [place]: B St: REG Name: GLENNA HUBBARD [facility] : 1980 Age/S: 41/F [address] [facility] Unit #: [id number] Loc: [place] [address] Phys: Zachery Nino APRNNP Acct:[id number] Dis Date: Status: REG ER PHONE #: [phone] Exam Date: 12/17/20212134 FAX #: [phone] Reason: foot wound EXAMS: CPT CODE: [id number] XR FOOT 3 + [place] 15784 3 VIEWS LEFT FOOT Dictation Location: N13 CLINICAL HISTORY: Foot wound , sent by PCP for admission Technique: Oblique, AP andlateral views were obtained. Findings: There is a diffuse mild osteopenia. There is a small heel spur. There is no evidence of fracture, dislocation, or radiopaque foreign body. Soft tissues are unremar kable. No evidence of subcutaneous emphysema or obvious soft tissue swelling. IMPRESSION: No acute abnormality by plain film. Small heel spur. at 2204 Reported and signed by: Elise Mcelroy M.D. CC: Zachery Nino Technologist: VIVI KWAN Trnscrd Date/Time/By: 12/17/2021 (2203) : By: Esteban Orig Print D/T: S: 12/17/2021 (2206)PAGE 1 Signed [id number] 22:02:00 Test Item Value Reference Range Interpretation Comments TROPONIN-HS (test <4.0 pg/mL 0-45 N CAUTION: U nits of the code = TROPI) current test m ethodology (pg/mL)differ f rom the prior test meth odology (ng/mL) by a fa ctorof 1000. LACTIC [id number] 22:02:00 Test Item Value Reference Range Interpretation Comments LACTIC ACID (test code = LACT) 0.8 mmol/L 0.4-1.9 N BASIC METABOLIC [id number] 22:02:00 Test Item Value Reference Range Interpretation [...] Modifi ed MDRD (test code = GFR) formula.Ch ronic kidney disease is defined as eith er kidney damageor GFR <60 mL/min/1.73 m2 for >3 months. [Automated mess age] The system [employer] generated this result transmitted ref erence range: [...] 9.2 mg/dL 8.5-10.1 N CA) HEPATIC FUNCTION [id number] 22:02:00 Test Item Value Reference Range Interpretation [...] ALKP) to change in reagent. CBC W/AUTO [id number] 21:45:00 Test Item Value Reference Range Interpretation [...] NO = MDIFF) - XR CHEST 1 [id number] 21:07:[address] [facility])Name: GLENNA HUBBARD : 1980 Sex: F FAX: Mack Zachery Nino APRN [phone] [place]: St: REG Name: GLENNA HUBBARD [facility] : 1980 Age/S: 41/F [address] [facility] Unit #: [id number] Loc: [place] [address] Phys: Zachery Nino Acct:[id number] Dis Date: Status: REG ER PHONE #: [phone] Exam Date: 12/17/20212045 FAX #: [phone] Reason: CODE SEPSIS EXAMS: CPT CODE: [id number] XR CHEST 1 V 57625 EXAM: Chest x-ray, one view; INFORMATION: Code sepsis; FINDINGS: There are fibrotic changes in the midlung rizzo bilaterally.No evidence of acute infiltrate; no edema; no effusions; no pneumothorax. Unremarkable cardiac mediastinal silhouette. IMPRESSION: 1. Bilateral pulmonary scarring. 2. No evidence of acute cardiothoracic abnormalities. Location code: [facility] at 2106 Reported and signed by: Petar Duarte M.D. CC: Zachery Nino Technologist: RT JAH(Reba) Trnscrd Date/Time/By: 12/17/2021 (2106) : By: Shaka Orig Print D/T: S: 12/17/2021 (1340) PAGE 1 Signed ReportSEDIMENTATION [id number] 20:18:57 Test Item Value Reference Range Interpretation Comments ESR (test code = See_Comment H [Automated message] [id number]) The system [employer] generated this result transmitted ref erence range: 0 - 20 m m/HR. The reference r katrin was not used to interpret this result as normal/abnor mal. Lab Interpretation (test Abnormal code = 59525-1) [facility]. METABOLIC PANEL (00189)2021-12-17 19:53:54 Test Item Value Reference Range Interpretation Comments NA (test code = 134 mmol/L 135-145 L [id number]) K (test code = 4.0 mmol/L 3.5-5.0 8004339599) CL (test code = 100 mmol/L 98-108 9701994047) CO2 TOTAL (test code = 30 mmol/L 23-31 9115324093) AGAP (test code = 2-16 5983641017) BUN (test code = 16 mg/dL 7-23 7644619741) GLUCOSE (test code = 429 mg/dL 70-110 H 4110903514) CREATININE (test code = 0.52 mg/dL 0.50-1.04 7712975284) TOTAL BILI (test code = 0.5 mg/dL 0.1-1.1 4721088425) CALCIUM (test code = 8.8 mg/dL 8.6-10.6 5677381170) T PROTEIN (test code = 7.3 g/dL 6.3-8.2 4621882361) ALBUMIN (test code = 4.1 g/dL 3.5-5.0 9507226276) ALK PHOS (test code = 212 U/L 34-122 H 5320830447) ALTv (test code = 23 U/L 5-35 1742-6) AST(SGOT) (test code = 26 U/L 13-40 7402429561) eGFR (test code = mL/min/1.73m2 1387832718) JOHANNE (test code = JOHANNE) Association of [...] tests). Lab Interpretation Abnormal (test code = 05752-8) [facility] WITH [id number] 19:38:57 Test Item Value Reference Range Interpretation Comments WBC (test code = See_Comment [Automated 5399-2) message] The sy stem which generated this result transmitted reference range : 4.30 - 11.10 10*3/?L. The reference range was not used to interpret this result as normal/abnormal . RBC (test code = See_Comment [Automated 152-1) message] The sy stem which generated this [...] (test code = 37.5 fL 39.0-49.9 L 43992-4) RDW-CV (test code = 11.9 % 12.0-15.5 L 788-0) PLT (test code = See_Comment [Automated 777-3) message] The sy stem which generated this result transmitted reference range : 166 - 358 10*3/ ?L. The reference r katrin was not used to interpret this result as normal/abnormal . MPV (test code = 12.4 fL 9.5-12.9 11166-7) NRBC/100 WBC (test See_Comment [Automat ed code = 8110515499) message] The system which generated this result transmitted reference range : 0.0 - 10.0 /100 WBCs. The refer ence range was not u sed to interpret th is result as normal/abnormal . NRBC x10^3 (test code <0.01 See_Comment [Auto mated = 8170822771) message] The s ystem which generated this result transmitted reference range : 10*3/?L. The reference range was not used to interpret this result as normal/abnormal . GRAN MAT (NEUT) % 56.9 % (test code = 770-8) IMM GRAN % (test code 0.70 % = 5315515156) LYMPH % (test code = 31.8 % 736-9) MONO % (test code = 8.5 % 5905-5) EOS % (test code = 1.6 % 713-8) BASO % (test code = 0.5 % 706-2) GRAN MAT x10^3(ANC) 4.29 10*3/uL 1.88-7.09 (test code = 0704020773) IMM GRAN x10^3 (test 0.05 10*3/uL 0.00-0.06 code = 1703805180) LYMPH x10^3 (test code 2.40 10*3/uL 1.32-3.29 = 731-0) MONO x10^3 (test code 0.64 10*3/uL 0.33-0.92 = 742-7) EOS x10^3 (test code = 0.12 10*3/uL 0.03-0.39 711-2) BASO x10^3 (test code 0.04 10*3/uL 0.01-0.07 = 704-7) Lab Interpretation Abnormal (test code = 64928-0) [facility] [id number] 00:00:00 Test Item Value Reference Range Interpretation Comments HEMOGLOBIN A1c (test code = 92423) 13.5 % HEMOGLOBIN [id number] 00:00:00 Test Item Value Reference Range Interpretation Comments HEMOGLOBIN A1c (test code = 82284) 13.5 % HEMOGLOBIN [id number] 00:00:00 Test Item Value Reference Range Interpretation Comments HEMOGLOBIN A1c (test code = 95584) 13.5 % HEMOGLOBIN [id number] 00:00:00 Test Item Value Reference Range Interpretation Comments HEMOGLOBIN A1c (test code = 27780) 13.5 % HEMOGLOBIN [id number] 00:00:00 Test Item Value Reference Range Interpretation Comments HEMOGLOBIN A1c (test code = 33310) 13.5 % HEMOGLOBIN [id number] 00:00:00 Test Item Value Reference Range Interpretation Comments HEMOGLOBIN A1c (test code = 25391) 13.5 % CULTURE, [id number] 00:00:00 Test Item Value Reference Range Interpretation Comments CULTURE, URINE (test SPECIMEN NUMBER: code = 59376) [id number] CULTURE, [id number] 00:00:00 Test Item Value Reference Range Interpretation Comments CULTURE, URINE (test SPECIMEN NUMBER: code = 21879) [id number] CULTURE, [id number] 00:00:00 Test Item Value Reference Range Interpretation Comments CULTURE, URINE (test SPECIMEN NUMBER: code = 30519) [id number] CULTURE, [id number] 00:00:00 Test Item Value Reference Range Interpretation Comments CULTURE, URINE (test SPECIMEN NUMBER: code = 86894) [id number] SARS-CoV-2 (COVID-19) by RT-PCR (HIGH RISK)2020-06-25 00:00:00 Test Item Value Reference Range Interpretation Comments SARS-CoV-2 INTERPRETATION (test POSITIVE code = 59251) SOURCE (test code = 76182) NOT SPECIFIED SARS-CoV-2 (COVID-19) by RT-PCR (HIGH RISK)2020-06-25 00:00:00 Test Item Value Reference Range Interpretation Comments SARS-CoV-2 INTERPRETATION (test POSITIVE code = 78703) SOURCE (test code = 69829) NOT SPECIFIED SARS-CoV-2 (COVID-19) by RT-PCR (HIGH RISK)2020-06-25 00:00:00 Test Item Value Reference Range Interpretation Comments SARS-CoV-2 INTERPRETATION (test POSITIVE code = 81970) SOURCE (test code = 67645) NOT SPECIFIED SARS-CoV-2 (COVID-19) by RT-PCR (HIGH RISK)2020-06-25 00:00:00 Test Item Value Reference Range Interpretation Comments SARS-CoV-2 INTERPRETATION (test POSITIVE code = 81344) SOURCE (test code = 36107) NOT SPECIFIED CULTURE, [id number] 00:00:00 Test Item Value Reference Range Interpretation Comments CULTURE, URINE (test SPECIMEN NUMBER: code = 40350) [id number] CULTURE, [id number] 00:00:00 Test Item Value Reference Range Interpretation Comments CULTURE, URINE (test SPECIMEN NUMBER: code = 06212) [id number] CULTURE, [id number] 00:00:00 Test Item Value Reference Range Interpretation Comments CULTURE, URINE (test SPECIMEN NUMBER: code = 28772) [id number] CULTURE, [id number] 00:00:00 Test Item Value Reference Range Interpretation Comments CULTURE, URINE (test SPECIMEN NUMBER: code = 88904) [id number] MICROALBUMIN/CREATININE, RANDOM AND [id number] 00:00:00 Test Item Value Reference Range Interpretation Comments CREATININE, URINE, CONC. (test 63.4 MG/DL code = 2072) ALBUMIN, URINE, RANDOM (test code 1.0 MG/DL = 05657) CALC ALBUMIN/CREAT, RND (test code 16 MG/G = 47057) MICROALBUMIN/CREATININE, RANDOM AND [id number] 00:00:00 Test Item Value Reference Range Interpretation Comments CREATININE, URINE, CONC. (test 63.4 MG/DL code = 2072) ALBUMIN, URINE, RANDOM (test code 1.0 MG/DL = 59151) CALC ALBUMIN/CREAT, RND (test code 16 MG/G = 07559) MICROALBUMIN/CREATININE, RANDOM AND [id number] 00:00:00 Test Item Value Reference Range Interpretation Comments CREATININE, URINE, CONC. (test 63.4 MG/DL code = 2072) ALBUMIN, URINE, RANDOM (test code 1.0 MG/DL = 58314) CALC ALBUMIN/CREAT, RND (test code 16 MG/G = 59561) MICROALBUMIN/CREATININE, RANDOM AND [id number] 00:00:00 Test Item Value Reference Range Interpretation Comments CREATININE, URINE, CONC. (test 63.4 MG/DL code = 2072) ALBUMIN, URINE, RANDOM (test code 1.0 MG/DL = 69801) CALC ALBUMIN/CREAT, RND (test code 16 MG/G = 41740) COMPREHENSIVE METABOLIC [id number] 00:00:00 Test Item Value Reference Range Interpretation Comments GLUCOSE (test code = 2217) 292 MG/DL BUN (test code = 2208) 10 MG/DL CREATININE (test code = 2214) 0.41 MG/DL eGFR AMER. (test code 149 ML/MIN/1.73 = 45011) eGFR NON- AMER. (test 128 ML/MIN/1.73 code = 82022) CALC BUN/CREAT (test code = 24 RATIO 2235) SODIUM (test code = 2231) 136 MEQ/L POTASSIUM (test code = 2228) 4.0 MEQ/L CHLORIDE (test code = 2215) 99 MEQ/L CARBON DIOXIDE (test code = 26 MEQ/L 2206) CALCIUM (test code = 2209) 9.1 MG/DL PROTEIN, TOTAL (test code = 7.3 G/DL 2228) ALBUMIN (test code = 2201) 4.2 G/DL CALC GLOBULIN (test code = 3.1 G/DL 2240) CALC A/G RATIO (test code = 1.4 RATIO 2234) BILIRUBIN, TOTAL (test code = 0.6 MG/DL 2206) ALKALINE PHOSPHATASE (test 106 U/L code = 2204) AST (test code = 2218) 13 U/L ALT (test code = 2219) 19 U/L COMPREHENSIVE METABOLIC [id number] 00:00:00 Test Item Value Reference Range Interpretation Comments GLUCOSE (test code = 2217) 292 MG/DL BUN (test code = 2208) 10 MG/DL CREATININE (test code = 2214) 0.41 MG/DL eGFR AMER. (test code 149 ML/MIN/1.73 = 71585) eGFR NON- AMER. (test 128 ML/MIN/1.73 code = 85519) CALC BUN/CREAT (test code = 24 RATIO 2235) SODIUM (test code = 2231) 136 MEQ/L POTASSIUM (test code = 2228) 4.0 MEQ/L CHLORIDE (test code = 2215) 99 MEQ/L CARBON DIOXIDE (test code = 26 MEQ/L 2206) CALCIUM (test code = 2209) 9.1 MG/DL PROTEIN, TOTAL (test code = 7.3 G/DL 2228) ALBUMIN (test code = 2201) 4.2 G/DL CALC GLOBULIN (test code = 3.1 G/DL 2240) CALC A/G RATIO (test code = 1.4 RATIO 2234) BILIRUBIN, TOTAL (test code = 0.6 MG/DL 2206) ALKALINE PHOSPHATASE (test 106 U/L code = 2204) AST (test code = 2218) 13 U/L ALT (test code = 2219) 19 U/L LIPID [id number] 00:00:00 Test Item Value Reference Range Interpretation Comments CHOLESTEROL (test code = 2210) 169 MG/DL TRIGLYCERIDES (test code = 2232) 100 MG/DL HDL CHOLESTEROL (test code = 2220) 75 MG/DL CALC LDL CHOL (test code = 2237) 75 MG/DL RISK RATIO LDL/HDL (test code = 1.00 RATIO 2238) LIPID [id number] 00:00:00 Test Item Value Reference Range Interpretation Comments CHOLESTEROL (test code = 2210) 169 MG/DL TRIGLYCERIDES (test code = 2232) 100 MG/DL HDL CHOLESTEROL (test code = 2220) 75 MG/DL CALC LDL CHOL (test code = 2237) 75 MG/DL RISK RATIO LDL/HDL (test code = 1.00 RATIO 2238) COMPREHENSIVE METABOLIC [id number] 00:00:00 Test Item Value Reference Range Interpretation Comments GLUCOSE (test code = 2217) 292 MG/DL BUN (test code = 2208) 10 MG/DL CREATININE (test code = 2214) 0.41 MG/DL eGFR AMER. (test code 149 ML/MIN/1.73 = 27115) eGFR NON- AMER. (test 128 ML/MIN/1.73 code = 45177) CALC BUN/CREAT (test code = 24 RATIO 2235) SODIUM (test code = 2231) 136 MEQ/L POTASSIUM (test code = 2228) 4.0 MEQ/L CHLORIDE (test code = 2215) 99 MEQ/L CARBON DIOXIDE (test code = 26 MEQ/L 2206) CALCIUM (test code = 2209) 9.1 MG/DL PROTEIN, TOTAL (test code = 7.3 G/DL 2228) ALBUMIN (test code = 2201) 4.2 G/DL CALC GLOBULIN (test code = 3.1 G/DL 2240) CALC A/G RATIO (test code = 1.4 RATIO 2234) BILIRUBIN, TOTAL (test code = 0.6 MG/DL 2206) ALKALINE PHOSPHATASE (test 106 U/L code = 220) AST (test code = 2218) 13 U/L ALT (test code = 2219) 19 U/L COMPREHENSIVE METABOLIC [id number] 00:00:00 Test Item Value Reference Range Interpretation Comments GLUCOSE (test code = 2217) 292 MG/DL BUN (test code = 2208) 10 MG/DL CREATININE (test code = 2214) 0.41 MG/DL eGFR AMER. (test code 149 ML/MIN/1.73 = 90543) eGFR NON- AMER. (test 128 ML/MIN/1.73 code = 82128) CALC BUN/CREAT (test code = 24 RATIO 2235) SODIUM (test code = 2231) 136 MEQ/L POTASSIUM (test code = 2228) 4.0 MEQ/L CHLORIDE (test code = 2215) 99 MEQ/L CARBON DIOXIDE (test code = 26 MEQ/L 2206) CALCIUM (test code = 2209) 9.1 MG/DL PROTEIN, TOTAL (test code = 7.3 G/DL 2228) ALBUMIN (test code = 2201) 4.2 G/DL CALC GLOBULIN (test code = 3.1 G/DL 2240) CALC A/G RATIO (test code = 1.4 RATIO 2234) BILIRUBIN, TOTAL (test code = 0.6 MG/DL 2206) ALKALINE PHOSPHATASE (test 106 U/L code = 2204) AST (test code = 2218) 13 U/L ALT (test code = 2219) 19 U/L LIPID [id number] 00:00:00 Test Item Value Reference Range Interpretation Comments CHOLESTEROL (test code = 2210) 169 MG/DL TRIGLYCERIDES (test code = 2232) 100 MG/DL HDL CHOLESTEROL (test code = 2220) 75 MG/DL CALC LDL CHOL (test code = 2237) 75 MG/DL RISK RATIO LDL/HDL (test code = 1.00 RATIO 2238) LIPID [id number] 00:00:00 Test Item Value Reference Range Interpretation Comments CHOLESTEROL (test code = 2210) 169 MG/DL TRIGLYCERIDES (test code = 2232) 100 MG/DL HDL CHOLESTEROL (test code = 2220) 75 MG/DL CALC LDL CHOL (test code = 2237) 75 MG/DL RISK RATIO LDL/HDL (test code = 1.00 RATIO 2238) CBC W/AUTO [id number] 00:00:00 Test Item Value Reference Range Interpretation Comments WBC (test code = 1001) 8.4 K/UL RBC (test code = 1002) 4.84 M/UL HEMOGLOBIN (test code = 1003) 14.0 G/DL HEMATOCRIT (test code = 1004) 42.6 % MCV (test code = 1005) 88.0 fL MCH (test code = 1006) 28.9 PG MCHC (test code = 1007) 32.9 G/DL RDW (test code = 1038) 12.4 % NEUTROPHILS (test code = 1008) 60.8 % LYMPHOCYTES (test code = 1010) 28.9 % MONOCYTES (test code = 1011) 7.5 % EOSINOPHILS (test code = 1012) 2.3 % BASOPHILS (test code = 1013) 0.5 % PLATELET COUNT (test code = 1015) 198 K/UL CBC W/AUTO [id number] 00:00:00 Test Item Value Reference Range Interpretation Comments WBC (test code = 1001) 8.4 K/UL RBC (test code = 1002) 4.84 M/UL HEMOGLOBIN (test code = 1003) 14.0 G/DL HEMATOCRIT (test code = 1004) 42.6 % MCV (test code = 1005) 88.0 fL MCH (test code = 1006) 28.9 PG MCHC (test code = 1007) 32.9 G/DL RDW (test code = 1038) 12.4 % NEUTROPHILS (test code = 1008) 60.8 % LYMPHOCYTES (test code = 1010) 28.9 % MONOCYTES (test code = 1011) 7.5 % EOSINOPHILS (test code = 1012) 2.3 % BASOPHILS (test code = 1013) 0.5 % PLATELET COUNT (test code = 1015) 198 K/UL CBC W/AUTO [id number] 00:00:00 Test Item Value Reference Range Interpretation Comments WBC (test code = 1001) 8.4 K/UL RBC (test code = 1002) 4.84 M/UL HEMOGLOBIN (test code = 1003) 14.0 G/DL HEMATOCRIT (test code = 1004) 42.6 % MCV (test code = 1005) 88.0 fL MCH (test code = 1006) 28.9 PG MCHC (test code = 1007) 32.9 G/DL RDW (test code = 1038) 12.4 % NEUTROPHILS (test code = 1008) 60.8 % LYMPHOCYTES (test code = 1010) 28.9 % MONOCYTES (test code = 1011) 7.5 % EOSINOPHILS (test code = 1012) 2.3 % BASOPHILS (test code = 1013) 0.5 % PLATELET COUNT (test code = 1015) 198 K/UL HEMOGLOBIN [id number] 00:00:00 Test Item Value Reference Range Interpretation Comments HEMOGLOBIN A1c (test code = 00153) 11.8 % HEMOGLOBIN [id number] 00:00:00 Test Item Value Reference Range Interpretation Comments HEMOGLOBIN A1c (test code = 26708) 11.8 % HEMOGLOBIN [id number] 00:00:00 Test Item Value Reference Range Interpretation Comments HEMOGLOBIN A1c (test code = 14119) 11.8 % CBC W/AUTO [id number] 00:00:00 Test Item Value Reference Range Interpretation Comments WBC (test code = 1001) 8.4 K/UL RBC (test code = 1002) 4.84 M/UL HEMOGLOBIN (test code = 1003) 14.0 G/DL HEMATOCRIT (test code = 1004) 42.6 % MCV (test code = 1005) 88.0 fL MCH (test code = 1006) 28.9 PG MCHC (test code = 1007) 32.9 G/DL RDW (test code = 1038) 12.4 % NEUTROPHILS (test code = 1008) 60.8 % LYMPHOCYTES (test code = 1010) 28.9 % MONOCYTES (test code = 1011) 7.5 % EOSINOPHILS (test code = 1012) 2.3 % BASOPHILS (test code = 1013) 0.5 % PLATELET COUNT (test code = 1015) 198 K/UL CBC W/AUTO [id number] 00:00:00 Test Item Value Reference Range Interpretation Comments WBC (test code = 1001) 8.4 K/UL RBC (test code = 1002) 4.84 M/UL HEMOGLOBIN (test code = 1003) 14.0 G/DL HEMATOCRIT (test code = 1004) 42.6 % MCV (test code = 1005) 88.0 fL MCH (test code = 1006) 28.9 PG MCHC (test code = 1007) 32.9 G/DL RDW (test code = 1038) 12.4 % NEUTROPHILS (test code = 1008) 60.8 % LYMPHOCYTES (test code = 1010) 28.9 % MONOCYTES (test code = 1011) 7.5 % EOSINOPHILS (test code = 1012) 2.3 % BASOPHILS (test code = 1013) 0.5 % PLATELET COUNT (test code = 1015) 198 K/UL CBC W/AUTO [id number] 00:00:00 Test Item Value Reference Range Interpretation Comments WBC (test code = 1001) 8.4 K/UL RBC (test code = 1002) 4.84 M/UL HEMOGLOBIN (test code = 1003) 14.0 G/DL HEMATOCRIT (test code = 1004) 42.6 % MCV (test code = 1005) 88.0 fL MCH (test code = 1006) 28.9 PG MCHC (test code = 1007) 32.9 G/DL RDW (test code = 1038) 12.4 % NEUTROPHILS (test code = 1008) 60.8 % LYMPHOCYTES (test code = 1010) 28.9 % MONOCYTES (test code = 1011) 7.5 % EOSINOPHILS (test code = 1012) 2.3 % BASOPHILS (test code = 1013) 0.5 % PLATELET COUNT (test code = 1015) 198 K/UL HEMOGLOBIN [id number] 00:00:00 Test Item Value Reference Range Interpretation Comments HEMOGLOBIN A1c (test code = 48556) 11.8 % HEMOGLOBIN [id number] 00:00:00 Test Item Value Reference Range Interpretation Comments HEMOGLOBIN A1c (test code = 30518) 11.8 % HEMOGLOBIN [id number] 00:00:00 Test Item Value Reference Range Interpretation Comments HEMOGLOBIN A1c (test code = 83584) 11.8 % HEMOGLOBIN [id number] 00:00:00 Test Item Value Reference Range Interpretation Comments HEMOGLOBIN A1c (test code = 72551) 11.4 % HEMOGLOBIN [id number] 00:00:00 Test Item Value Reference Range Interpretation Comments HEMOGLOBIN A1c (test code = 38630) 11.4 % HEMOGLOBIN [id number] 00:00:00 Test Item Value Reference Range Interpretation Comments HEMOGLOBIN A1c (test code = 42745) 11.4 % COMPREHENSIVE METABOLIC [id number] 00:00:00 Test Item Value Reference Range Interpretation Comments GLUCOSE (test code = 2217) 349 MG/DL BUN (test code = 2208) 12 MG/DL CREATININE (test code = 2214) 0.63 MG/DL eGFR AMER. (test code 132 ML/MIN/1.73 = 70798) eGFR NON- AMER. (test 114 ML/MIN/1.73 code = 75715) CALC BUN/CREAT (test code = 19 RATIO 2235) SODIUM (test code = 2231) 133 MEQ/L POTASSIUM (test code = 2228) 3.7 MEQ/L CHLORIDE (test code = 2215) 95 MEQ/L CARBON DIOXIDE (test code = 22 MEQ/L 2205) CALCIUM (test code = 2209) 9.1 MG/DL PROTEIN, TOTAL (test code = 7.5 G/DL 2228) ALBUMIN (test code = 2201) 3.9 G/DL CALC GLOBULIN (test code = 3.6 G/DL 0) CALC A/G RATIO (test code = 1.1 RATIO 4) BILIRUBIN, TOTAL (test code = 0.3 MG/DL 2206) ALKALINE PHOSPHATASE (test 116 U/L code = 2204) AST (test code = 2218) 22 U/L ALT (test code = 2219) 14 U/L COMPREHENSIVE METABOLIC [id number] 00:00:00 Test Item Value Reference Range Interpretation Comments GLUCOSE (test code = 2217) 349 MG/DL BUN (test code = 2208) 12 MG/DL CREATININE (test code = 2214) 0.63 MG/DL eGFR AMER. (test code 132 ML/MIN/1.73 = 75066) eGFR NON- AMER. (test 114 ML/MIN/1.73 code = 79167) CALC BUN/CREAT (test code = 19 RATIO 2235) SODIUM (test code = 2231) 133 MEQ/L POTASSIUM (test code = 2228) 3.7 MEQ/L CHLORIDE (test code = 2215) 95 MEQ/L CARBON DIOXIDE (test code = 22 MEQ/L 2205) CALCIUM (test code = 2209) 9.1 MG/DL PROTEIN, TOTAL (test code = 7.5 G/DL 2228) ALBUMIN (test code = 2201) 3.9 G/DL CALC GLOBULIN (test code = 3.6 G/DL 224) CALC A/G RATIO (test code = 1.1 RATIO 2233) BILIRUBIN, TOTAL (test code = 0.3 MG/DL 2206) ALKALINE PHOSPHATASE (test 116 U/L code = 2204) AST (test code = 2218) 22 U/L ALT (test code = 2219) 14 U/L LIPID [id number] 00:00:00 Test Item Value Reference Range Interpretation Comments CHOLESTEROL (test code = 2210) 185 MG/DL TRIGLYCERIDES (test code = 2232) 168 MG/DL HDL CHOLESTEROL (test code = 2220) 74 MG/DL CALC LDL CHOL (test code = 2237) 77 MG/DL RISK RATIO LDL/HDL (test code = 1.05 RATIO 2238) LIPID [id number] 00:00:00 Test Item Value Reference Range Interpretation Comments CHOLESTEROL (test code = 2210) 185 MG/DL TRIGLYCERIDES (test code = 2232) 168 MG/DL HDL CHOLESTEROL (test code = 2220) 74 MG/DL CALC LDL CHOL (test code = 2237) 77 MG/DL RISK RATIO LDL/HDL (test code = 1.05 RATIO 2238) THYROID II PROFILE (T3U, T4, T7, TSH)[id number] 00:00:00 Test Item Value Reference Range Interpretation Comments T3 UPTAKE (test code = 2816) 31.5 % T4 (THYROXINE) (test code = 7.1 UG/DL 2819) CALCULATED T7 (FTI) (test code = 2.24 2820) TSH (test code = 2821) 0.348 UIU/ML THYROID II PROFILE (T3U, T4, T7, TSH)2017-05-03 00:00:00 Test Item Value Reference Range Interpretation Comments T3 UPTAKE (test code = 2817) 31.5 % T4 (THYROXINE) (test code = 7.1 UG/DL 2819) CALCULATED T7 (FTI) (test code = 2.24 2820) TSH (test code = 2821) 0.348 UIU/ML CBC W/AUTO [id number] 00:00:00 Test Item Value Reference Range Interpretation Comments WBC (test code = 1001) 8.9 K/UL RBC (test code = 1002) 4.76 M/UL HEMOGLOBIN (test code = 1003) 12.4 G/DL HEMATOCRIT (test code = 1004) 38.4 % MCV (test code = 1005) 80.7 fL MCH (test code = 1006) 26.1 PG MCHC (test code = 1007) 32.3 G/DL RDW (test code = 1038) 14.3 % NEUTROPHILS (test code = 1008) 64.7 % LYMPHOCYTES (test code = 1010) 26.7 % MONOCYTES (test code = 1011) 7.5 % EOSINOPHILS (test code = 1012) 0.8 % BASOPHILS (test code = 1013) 0.3 % PLATELET COUNT (test code = 1015) 241 K/UL CBC W/AUTO [id number] 00:00:00 Test Item Value Reference Range Interpretation Comments WBC (test code = 1001) 8.9 K/UL RBC (test code = 1002) 4.76 M/UL HEMOGLOBIN (test code = 1003) 12.4 G/DL HEMATOCRIT (test code = 1004) 38.4 % MCV (test code = 1005) 80.7 fL MCH (test code = 1006) 26.1 PG MCHC (test code = 1007) 32.3 G/DL RDW (test code = 1038) 14.3 % NEUTROPHILS (test code = 1008) 64.7 % LYMPHOCYTES (test code = 1010) 26.7 % MONOCYTES (test code = 1011) 7.5 % EOSINOPHILS (test code = 1012) 0.8 % BASOPHILS (test code = 1013) 0.3 % PLATELET COUNT (test code = 1015) 241 K/UL CBC W/AUTO [id number] 00:00:00 Test Item Value Reference Range Interpretation Comments WBC (test code = 1001) 8.9 K/UL RBC (test code = 1002) 4.76 M/UL HEMOGLOBIN (test code = 1003) 12.4 G/DL HEMATOCRIT (test code = 1004) 38.4 % MCV (test code = 1005) 80.7 fL MCH (test code = 1006) 26.1 PG MCHC (test code = 1007) 32.3 G/DL RDW (test code = 1038) 14.3 % NEUTROPHILS (test code = 1008) 64.7 % LYMPHOCYTES (test code = 1010) 26.7 % MONOCYTES (test code = 1011) 7.5 % EOSINOPHILS (test code = 1012) 0.8 % BASOPHILS (test code = 1013) 0.3 % PLATELET COUNT (test code = 1015) 241 K/UL MICROALBUMIN/CREATININE, RANDOM AND [id number] 00:00:00 Test Item Value Reference Range Interpretation Comments CREATININE, URINE, CONC. (test 54.0 MG/DL code = 2072) MICROALBUMIN, RANDOM (test code = 0.4 MG/DL 56885) CALC MICROALB/CREAT RND (test code 7 MG/G = 14782) MICROALBUMIN/CREATININE, RANDOM AND [id number] 00:00:00 Test Item Value Reference Range Interpretation Comments CREATININE, URINE, CONC. (test 54.0 MG/DL code = 2072) MICROALBUMIN, RANDOM (test code = 0.4 MG/DL 76094) CALC MICROALB/CREAT RND (test code 7 MG/G = 33432) HEMOGLOBIN [id number] 00:00:00 Test Item Value Reference Range Interpretation Comments HEMOGLOBIN A1c (test code = 03834) 11.4 % HEMOGLOBIN [id number] 00:00:00 Test Item Value Reference Range Interpretation Comments HEMOGLOBIN A1c (test code = 78473) 11.4 % HEMOGLOBIN [id number] 00:00:00 Test Item Value Reference Range Interpretation Comments HEMOGLOBIN A1c (test code = 79976) 11.4 % COMPREHENSIVE METABOLIC [id number] 00:00:00 Test Item Value Reference Range Interpretation Comments GLUCOSE (test code = 2217) 349 MG/DL BUN (test code = 2208) 12 MG/DL CREATININE (test code = 2214) 0.63 MG/DL eGFR AMER. (test code 132 ML/MIN/1.73 = 59207) eGFR NON- AMER. (test 114 ML/MIN/1.73 code = 19020) CALC BUN/CREAT (test code = 19 RATIO 2235) SODIUM (test code = 2231) 133 MEQ/L POTASSIUM (test code = 2228) 3.7 MEQ/L CHLORIDE (test code = 2215) 95 MEQ/L CARBON DIOXIDE (test code = 22 MEQ/L 2206) CALCIUM (test code = 2209) 9.1 MG/DL PROTEIN, TOTAL (test code = 7.5 G/DL 222) ALBUMIN (test code = 2201) 3.9 G/DL CALC GLOBULIN (test code = 3.6 G/DL 2240) CALC A/G RATIO (test code = 1.1 RATIO 2234) BILIRUBIN, TOTAL (test code = 0.3 MG/DL 2206) ALKALINE PHOSPHATASE (test 116 U/L code = 2204) AST (test code = 2218) 22 U/L ALT (test code = 2219) 14 U/L COMPREHENSIVE METABOLIC [id number] 00:00:00 Test Item Value Reference Range Interpretation Comments GLUCOSE (test code = 2217) 349 MG/DL BUN (test code = 2208) 12 MG/DL CREATININE (test code = 2214) 0.63 MG/DL eGFR AMER. (test code 132 ML/MIN/1.73 = 15439) eGFR NON- AMER. (test 114 ML/MIN/1.73 code = 71746) CALC BUN/CREAT (test code = 19 RATIO 2235) SODIUM (test code = 2231) 133 MEQ/L POTASSIUM (test code = 2228) 3.7 MEQ/L CHLORIDE (test code = 2215) 95 MEQ/L CARBON DIOXIDE (test code = 22 MEQ/L 2206) CALCIUM (test code = 2209) 9.1 MG/DL PROTEIN, TOTAL (test code = 7.5 G/DL 222) ALBUMIN (test code = 2201) 3.9 G/DL CALC GLOBULIN (test code = 3.6 G/DL 2240) CALC A/G RATIO (test code = 1.1 RATIO 2234) BILIRUBIN, TOTAL (test code = 0.3 MG/DL 2206) ALKALINE PHOSPHATASE (test 116 U/L code = 2204) AST (test code = 2218) 22 U/L ALT (test code = 2219) 14 U/L LIPID [id number] 00:00:00 Test Item Value Reference Range Interpretation Comments CHOLESTEROL (test code = 2210) 185 MG/DL TRIGLYCERIDES (test code = 2232) 168 MG/DL HDL CHOLESTEROL (test code = 2220) 74 MG/DL CALC LDL CHOL (test code = 2237) 77 MG/DL RISK RATIO LDL/HDL (test code = 1.05 RATIO 2238) LIPID [id number] 00:00:00 Test Item Value Reference Range Interpretation Comments CHOLESTEROL (test code = 2210) 185 MG/DL TRIGLYCERIDES (test code = 2232) 168 MG/DL HDL CHOLESTEROL (test code = 2220) 74 MG/DL CALC LDL CHOL (test code = 2237) 77 MG/DL RISK RATIO LDL/HDL (test code = 1.05 RATIO 2238) THYROID II PROFILE (T3U, T4, T7, TSH)[id number] 00:00:00 Test Item Value Reference Range Interpretation Comments T3 UPTAKE (test code = 2817) 31.5 % T4 (THYROXINE) (test code = 7.1 UG/DL 2819) CALCULATED T7 (FTI) (test code = 2.24 2820) TSH (test code = 2821) 0.348 UIU/ML THYROID II PROFILE (T3U, T4, T7, TSH)2017-05-03 00:00:00 Test Item Value Reference Range Interpretation Comments T3 UPTAKE (test code = 2817) 31.5 % T4 (THYROXINE) (test code = 7.1 UG/DL 2819) CALCULATED T7 (FTI) (test code = 2.24 2820) TSH (test code = 2821) 0.348 UIU/ML CBC W/AUTO [id number] 00:00:00 Test Item Value Reference Range Interpretation Comments WBC (test code = 1001) 8.9 K/UL RBC (test code = 1002) 4.76 M/UL HEMOGLOBIN (test code = 1003) 12.4 G/DL HEMATOCRIT (test code = 1004) 38.4 % MCV (test code = 1005) 80.7 fL MCH (test code = 1006) 26.1 PG MCHC (test code = 1007) 32.3 G/DL RDW (test code = 1038) 14.3 % NEUTROPHILS (test code = 1008) 64.7 % LYMPHOCYTES (test code = 1010) 26.7 % MONOCYTES (test code = 1011) 7.5 % EOSINOPHILS (test code = 1012) 0.8 % BASOPHILS (test code = 1013) 0.3 % PLATELET COUNT (test code = 1015) 241 K/UL CBC W/AUTO [id number] 00:00:00 Test Item Value Reference Range Interpretation Comments WBC (test code = 1001) 8.9 K/UL RBC (test code = 1002) 4.76 M/UL HEMOGLOBIN (test code = 1003) 12.4 G/DL HEMATOCRIT (test code = 1004) 38.4 % MCV (test code = 1005) 80.7 fL MCH (test code = 1006) 26.1 PG MCHC (test code = 1007) 32.3 G/DL RDW (test code = 1038) 14.3 % NEUTROPHILS (test code = 1008) 64.7 % LYMPHOCYTES (test code = 1010) 26.7 % MONOCYTES (test code = 1011) 7.5 % EOSINOPHILS (test code = 1012) 0.8 % BASOPHILS (test code = 1013) 0.3 % PLATELET COUNT (test code = 1015) 241 K/UL CBC W/AUTO [id number] 00:00:00 Test Item Value Reference Range Interpretation Comments WBC (test code = 1001) 8.9 K/UL RBC (test code = 1002) 4.76 M/UL HEMOGLOBIN (test code = 1003) 12.4 G/DL HEMATOCRIT (test code = 1004) 38.4 % MCV (test code = 1005) 80.7 fL MCH (test code = 1006) 26.1 PG MCHC (test code = 1007) 32.3 G/DL RDW (test code = 1038) 14.3 % NEUTROPHILS (test code = 1008) 64.7 % LYMPHOCYTES (test code = 1010) 26.7 % MONOCYTES (test code = 1011) 7.5 % EOSINOPHILS (test code = 1012) 0.8 % BASOPHILS (test code = 1013) 0.3 % PLATELET COUNT (test code = 1015) 241 K/UL MICROALBUMIN/CREATININE, RANDOM AND [id number] 00:00:00 Test Item Value Reference Range Interpretation Comments CREATININE, URINE, CONC. (test 54.0 MG/DL code = 2072) MICROALBUMIN, RANDOM (test code = 0.4 MG/DL 85197) CALC MICROALB/CREAT RND (test code 7 MG/G = 29841) MICROALBUMIN/CREATININE, RANDOM AND [id number] 00:00:00 Test Item Value Reference Range Interpretation Comments CREATININE, URINE, CONC. (test 54.0 MG/DL code = 2072) MICROALBUMIN, RANDOM (test code = 0.4 MG/DL 72164) CALC MICROALB/CREAT RND (test code 7 MG/G = 29399) HEMOGLOBIN [id number] 00:00:00 Test Item Value Reference Range Interpretation Comments HEMOGLOBIN A1c (test code = 84996) 11.8 % HEMOGLOBIN [id number] 00:00:00 Test Item Value Reference Range Interpretation Comments HEMOGLOBIN A1c (test code = 34864) 11.8 % HEMOGLOBIN [id number] 00:00:00 Test Item Value Reference Range Interpretation Comments HEMOGLOBIN A1c (test code = 50356) 11.8 % CBC W/AUTO [id number] 00:00:00 Test Item Value Reference Range Interpretation Comments WBC (test code = 1001) 8.4 K/UL RBC (test code = 1002) 4.89 M/UL HEMOGLOBIN (test code = 1003) 13.5 G/DL HEMATOCRIT (test code = 1004) 41.4 % MCV (test code = 1005) 84.7 fL MCH (test code = 1006) 27.6 PG MCHC (test code = 1007) 32.6 G/DL RDW (test code = 1038) 13.3 % NEUTROPHILS (test code = 1008) 63.0 % LYMPHOCYTES (test code = 1010) 28.8 % MONOCYTES (test code = 1011) 6.7 % EOSINOPHILS (test code = 1012) 1.1 % BASOPHILS (test code = 1013) 0.4 % PLATELET COUNT (test code = 1015) 253 K/UL CBC W/AUTO [id number] 00:00:00 Test Item Value Reference Range Interpretation Comments WBC (test code = 1001) 8.4 K/UL RBC (test code = 1002) 4.89 M/UL HEMOGLOBIN (test code = 1003) 13.5 G/DL HEMATOCRIT (test code = 1004) 41.4 % MCV (test code = 1005) 84.7 fL MCH (test code = 1006) 27.6 PG MCHC (test code = 1007) 32.6 G/DL RDW (test code = 1038) 13.3 % NEUTROPHILS (test code = 1008) 63.0 % LYMPHOCYTES (test code = 1010) 28.8 % MONOCYTES (test code = 1011) 6.7 % EOSINOPHILS (test code = 1012) 1.1 % BASOPHILS (test code = 1013) 0.4 % PLATELET COUNT (test code = 1015) 253 K/UL CBC W/AUTO [id number] 00:00:00 Test Item Value Reference Range Interpretation Comments WBC (test code = 1001) 8.4 K/UL RBC (test code = 1002) 4.89 M/UL HEMOGLOBIN (test code = 1003) 13.5 G/DL HEMATOCRIT (test code = 1004) 41.4 % MCV (test code = 1005) 84.7 fL MCH (test code = 1006) 27.6 PG MCHC (test code = 1007) 32.6 G/DL RDW (test code = 1038) 13.3 % NEUTROPHILS (test code = 1008) 63.0 % LYMPHOCYTES (test code = 1010) 28.8 % MONOCYTES (test code = 1011) 6.7 % EOSINOPHILS (test code = 1012) 1.1 % BASOPHILS (test code = 1013) 0.4 % PLATELET COUNT (test code = 1015) 253 K/UL COMPREHENSIVE METABOLIC [id number] 00:00:00 Test Item Value Reference Range Interpretation Comments GLUCOSE (test code = 2217) 289 MG/DL BUN (test code = 2208) 15 MG/DL CREATININE (test code = 2214) 0.54 MG/DL eGFR AMER. (test code 140 ML/MIN/1.73 = 95678) eGFR NON- AMER. (test 121 ML/MIN/1.73 code = 76884) CALC BUN/CREAT (test code = 28 RATIO 2235) SODIUM (test code = 2231) 137 MEQ/L POTASSIUM (test code = 2228) 3.7 MEQ/L CHLORIDE (test code = 2215) 96 MEQ/L CARBON DIOXIDE (test code = 23 MEQ/L 2206) CALCIUM (test code = 2209) 8.9 MG/DL PROTEIN, TOTAL (test code = 7.6 G/DL 222) ALBUMIN (test code = 2201) 4.1 G/DL CALC GLOBULIN (test code = 3.5 G/DL 2240) CALC A/G RATIO (test code = 1.2 RATIO 2234) BILIRUBIN, TOTAL (test code = 0.3 MG/DL 2206) ALKALINE PHOSPHATASE (test 104 U/L code = 2204) AST (test code = 2218) 28 U/L ALT (test code = 2219) 23 U/L COMPREHENSIVE METABOLIC [id number] 00:00:00 Test Item Value Reference Range Interpretation Comments GLUCOSE (test code = 2217) 289 MG/DL BUN (test code = 2208) 15 MG/DL CREATININE (test code = 2214) 0.54 MG/DL eGFR AMER. (test code 140 ML/MIN/1.73 = 96816) eGFR NON- AMER. (test 121 ML/MIN/1.73 code = 70581) CALC BUN/CREAT (test code = 28 RATIO 2235) SODIUM (test code = 2231) 137 MEQ/L POTASSIUM (test code = 2228) 3.7 MEQ/L CHLORIDE (test code = 2215) 96 MEQ/L CARBON DIOXIDE (test code = 23 MEQ/L 2205) CALCIUM (test code = 2209) 8.9 MG/DL PROTEIN, TOTAL (test code = 7.6 G/DL 2229) ALBUMIN (test code = 2201) 4.1 G/DL CALC GLOBULIN (test code = 3.5 G/DL 2240) CALC A/G RATIO (test code = 1.2 RATIO 2234) BILIRUBIN, TOTAL (test code = 0.3 MG/DL 7) ALKALINE PHOSPHATASE (test 104 U/L code = 2204) AST (test code = 2218) 28 U/L ALT (test code = 2219) 23 U/L LIPID [id number] 00:00:00 Test Item Value Reference Range Interpretation Comments CHOLESTEROL (test code = 2210) 169 MG/DL TRIGLYCERIDES (test code = 2232) 144 MG/DL HDL CHOLESTEROL (test code = 2220) 64 MG/DL CALC LDL CHOL (test code = 2237) 76 MG/DL RISK RATIO LDL/HDL (test code = 1.19 RATIO 2238) LIPID [id number] 00:00:00 Test Item Value Reference Range Interpretation Comments CHOLESTEROL (test code = 2210) 169 MG/DL TRIGLYCERIDES (test code = 2232) 144 MG/DL HDL CHOLESTEROL (test code = 2220) 64 MG/DL CALC LDL CHOL (test code = 2237) 76 MG/DL RISK RATIO LDL/HDL (test code = 1.19 RATIO 2238) THYROID II PROFILE (T3U, T4, T7, TSH)[id number] 00:00:00 Test Item Value Reference Range Interpretation Comments T3 UPTAKE (test code = 2817) 30.4 % T4 (THYROXINE) (test code = 2819) 7.8 UG/DL CALCULATED T7 (FTI) (test code = 2.37 2820) TSH (test code = 2821) 0.4 UIU/ML THYROID II PROFILE (T3U, T4, T7, TSH)2016-07-28 00:00:00 Test Item Value Reference Range Interpretation Comments T3 UPTAKE (test code = 2817) 30.4 % T4 (THYROXINE) (test code = 2819) 7.8 UG/DL CALCULATED T7 (FTI) (test code = 2.37 2820) TSH (test code = 2821) 0.4 UIU/ML HEMOGLOBIN [id number] 00:00:00 Test Item Value Reference Range Interpretation Comments HEMOGLOBIN A1c (test code = 77830) 11.8 % HEMOGLOBIN [id number] 00:00:00 Test Item Value Reference Range Interpretation Comments HEMOGLOBIN A1c (test code = 38847) 11.8 % HEMOGLOBIN [id number] 00:00:00 Test Item Value Reference Range Interpretation Comments HEMOGLOBIN A1c (test code = 53985) 11.8 % CBC W/AUTO [id number] 00:00:00 Test Item Value Reference Range Interpretation Comments WBC (test code = 1001) 8.4 K/UL RBC (test code = 1002) 4.89 M/UL HEMOGLOBIN (test code = 1003) 13.5 G/DL HEMATOCRIT (test code = 1004) 41.4 % MCV (test code = 1005) 84.7 fL MCH (test code = 1006) 27.6 PG MCHC (test code = 1007) 32.6 G/DL RDW (test code = 1038) 13.3 % NEUTROPHILS (test code = 1008) 63.0 % LYMPHOCYTES (test code = 1010) 28.8 % MONOCYTES (test code = 1011) 6.7 % EOSINOPHILS (test code = 1012) 1.1 % BASOPHILS (test code = 1013) 0.4 % PLATELET COUNT (test code = 1015) 253 K/UL CBC W/AUTO [id number] 00:00:00 Test Item Value Reference Range Interpretation Comments WBC (test code = 1001) 8.4 K/UL RBC (test code = 1002) 4.89 M/UL HEMOGLOBIN (test code = 1003) 13.5 G/DL HEMATOCRIT (test code = 1004) 41.4 % MCV (test code = 1005) 84.7 fL MCH (test code = 1006) 27.6 PG MCHC (test code = 1007) 32.6 G/DL RDW (test code = 1038) 13.3 % NEUTROPHILS (test code = 1008) 63.0 % LYMPHOCYTES (test code = 1010) 28.8 % MONOCYTES (test code = 1011) 6.7 % EOSINOPHILS (test code = 1012) 1.1 % BASOPHILS (test code = 1013) 0.4 % PLATELET COUNT (test code = 1015) 253 K/UL CBC W/AUTO [id number] 00:00:00 Test Item Value Reference Range Interpretation Comments WBC (test code = 1001) 8.4 K/UL RBC (test code = 1002) 4.89 M/UL HEMOGLOBIN (test code = 1003) 13.5 G/DL HEMATOCRIT (test code = 1004) 41.4 % MCV (test code = 1005) 84.7 fL MCH (test code = 1006) 27.6 PG MCHC (test code = 1007) 32.6 G/DL RDW (test code = 1038) 13.3 % NEUTROPHILS (test code = 1008) 63.0 % LYMPHOCYTES (test code = 1010) 28.8 % MONOCYTES (test code = 1011) 6.7 % EOSINOPHILS (test code = 1012) 1.1 % BASOPHILS (test code = 1013) 0.4 % PLATELET COUNT (test code = 1015) 253 K/UL COMPREHENSIVE METABOLIC [id number] 00:00:00 Test Item Value Reference Range Interpretation Comments GLUCOSE (test code = 2217) 289 MG/DL BUN (test code = 2208) 15 MG/DL CREATININE (test code = 2214) 0.54 MG/DL eGFR AMER. (test code 140 ML/MIN/1.73 = 69389) eGFR NON- AMER. (test 121 ML/MIN/1.73 code = 56313) CALC BUN/CREAT (test code = 28 RATIO 2235) SODIUM (test code = 2231) 137 MEQ/L POTASSIUM (test code = 2228) 3.7 MEQ/L CHLORIDE (test code = 2215) 96 MEQ/L CARBON DIOXIDE (test code = 23 MEQ/L 2206) CALCIUM (test code = 2209) 8.9 MG/DL PROTEIN, TOTAL (test code = 7.6 G/DL 2228) ALBUMIN (test code = 2201) 4.1 G/DL CALC GLOBULIN (test code = 3.5 G/DL 2240) CALC A/G RATIO (test code = 1.2 RATIO 2234) BILIRUBIN, TOTAL (test code = 0.3 MG/DL 2206) ALKALINE PHOSPHATASE (test 104 U/L code = 2204) AST (test code = 2218) 28 U/L ALT (test code = 2219) 23 U/L COMPREHENSIVE METABOLIC [id number] 00:00:00 Test Item Value Reference Range Interpretation Comments GLUCOSE (test code = 2217) 289 MG/DL BUN (test code = 2208) 15 MG/DL CREATININE (test code = 2214) 0.54 MG/DL eGFR AMER. (test code 140 ML/MIN/1.73 = 72357) eGFR NON- AMER. (test 121 ML/MIN/1.73 code = 77521) CALC BUN/CREAT (test code = 28 RATIO 2235) SODIUM (test code = 2231) 137 MEQ/L POTASSIUM (test code = 2228) 3.7 MEQ/L CHLORIDE (test code = 2215) 96 MEQ/L CARBON DIOXIDE (test code = 23 MEQ/L 2206) CALCIUM (test code = 2209) 8.9 MG/DL PROTEIN, TOTAL (test code = 7.6 G/DL 2228) ALBUMIN (test code = 2201) 4.1 G/DL CALC GLOBULIN (test code = 3.5 G/DL 2240) CALC A/G RATIO (test code = 1.2 RATIO 2234) BILIRUBIN, TOTAL (test code = 0.3 MG/DL 2207) ALKALINE PHOSPHATASE (test 104 U/L code = 2204) AST (test code = 2218) 28 U/L ALT (test code = 2219) 23 U/L LIPID [id number] 00:00:00 Test Item Value Reference Range Interpretation Comments CHOLESTEROL (test code = 2210) 169 MG/DL TRIGLYCERIDES (test code = 2232) 144 MG/DL HDL CHOLESTEROL (test code = 2220) 64 MG/DL CALC LDL CHOL (test code = 2237) 76 MG/DL RISK RATIO LDL/HDL (test code = 1.19 RATIO 2238) LIPID [id number] 00:00:00 Test Item Value Reference Range Interpretation Comments CHOLESTEROL (test code = 2210) 169 MG/DL TRIGLYCERIDES (test code = 2232) 144 MG/DL HDL CHOLESTEROL (test code = 2220) 64 MG/DL CALC LDL CHOL (test code = 2237) 76 MG/DL RISK RATIO LDL/HDL (test code = 1.19 RATIO 2238) THYROID II PROFILE (T3U, T4, T7, TSH)2016-07-28 00:00:00 Test Item Value Reference Range Interpretation Comments T3 UPTAKE (test code = 2817) 30.4 % T4 (THYROXINE) (test code = 2819) 7.8 UG/DL CALCULATED T7 (FTI) (test code = 2.37 2820) TSH (test code = 2821) 0.4 UIU/ML THYROID II PROFILE (T3U, T4, T7, TSH)2016-07-28 00:00:00 Test Item Value Reference Range Interpretation Comments T3 UPTAKE (test code = 2817) 30.4 % T4 (THYROXINE) (test code = 2819) 7.8 UG/DL CALCULATED T7 (FTI) (test code = 2.37 2820) TSH (test code = 2821) 0.4 UIU/ML Notes Date/Time Note Provider Source 2022-01-03 11:49:00-00:00 [id number] [facility] PATIENT NAME: GLENNA HUBBARD ADMIT DATE: 12/18/21 ACCOUNT NO: [id number] ROOM NO: [facility] AGE: 41 REPORT TYPE: 360 - QUERY RESPONSE DOCUMENT SEX: F DATE OF : 76 ADMITTING PHYSICIAN:Amelia Herr MD ATTENDING PHYSICIAN:Lorena Mclain Provider Query QUERY TEXT: Condition General 360MD Query related questions should be directed to: Jeri matute [facility] Coding Query Helpline Based on your clinical judgement, can you please clarify if Sepsis was confirmed, Sepsis not confirmed, or o ther more appropriate diagnosis? 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 Hospitalist H istory and Physical 12/18/2021 sepsis. Hospitalist Progress Note 12/21/2021 left foot ulcer with unstageable ulcer/celluliti s. Hospitalist Discharge Summary 12/23/2021 WBC (4.5 - 12.5 K/mm3) 8.4. ED PHYSICIAN RECORD 12/17/2021 Pulse 100. ED PHYSICIAN RECORD 12/17/2021 Temp 36.5. ED PHYSICIAN RECORD 12/17/2021 Resp 18 ED PHYSICIAN RECORD 12/17/2021 Ceftriaxone IV. MAR Options provided: -- Respond - Create new note now -- Dismiss - Not applicable / Not valid -- Dismiss - Clinically unable to determine / Un known -- Assign to another provider QUERY RESPONSE: Sepsis not confirmed Query created by: ROSY NAIDU on 12/28/2021 6:21 AM at 1149 PATIENT NAME: GLENNA HUBBARD 70 2021-12-23 13:31:00-00:00 [facility] ([facility]) Hospitalist Discharge Summary REPORT#:[id number] REPORT STATUS: Signed DATE:12/23/21 TIME: 1331 PATIENT: GLENNA HUBBARD UNIT #: [id number] ROOM/BED: [address] : 78 AGE: 41 SEX: F ATTEND: Felicity Mclain MSN ADM AUTHOR: Lorena Mclain MSN * ALL edits or amendments must be made on the [employer]computer document * General Information Date of admission: Observation Start Date: Date of admission: 12/18/21 Discharge date: 12/23/21 Hospital course: left foot ulcer with unstageable ulcer/celluliti s MRI foot noted, concerning for possible osteomye litis vs stress fracture arterial with mild PAD, venous doppler negative for DVT continue Doxy 2/3 S/P debridement f/u with Dr Sun for wound care/work clearance post-op shoe and crutches arranged prior to dc partial weight bearing of LLE ok to dc home per podiatry rec 3. DM2 continue home meds HgA1c 13.0 recent change of diabetes meds at home, patient advised to f/u with A1c in 3 months 4. HTN continue Lisinopril 5. Obesity, BMI 31.8 dietary restrictions Consultants: podiatry Pt. condition on discharge: improved, stable Free Text DxA P Notes Free text DxA P notes: Med Rec Med Rec Discharge meds: Continue taking these medications: metFORMIN (GLUCOPHAGE) 1,000 MG TAB 1,000 MILLIGRAM ORAL TWICE DAILY. Instructions: TAKE WITH MEALS glipiZIDE (GLUCOTROL) 10 MG TAB 10 MILLIGRAM ORAL TWICE DAILY. Insulin Aspart Prot/Insuln A sp (NovoLOG Mix 70-30 FLEXPEN (15mL)) 100 UNIT/ML ( 70-30) PEN.INJCTR TWICE DAILY. Start taking the following new medications: LISINOPRIL (ZESTRIL) 10 MG TAB 10 MILLIGRAM ORAL DAILY. Qty = 30 No Refills DOXYCYCLINE HYCLATE (VIBRAMYCIN) 100 MG CAP 100 MILLIGRAM ORAL EVERY 12 HOURS. Qty = 20 No Refills traMADol (ULTRAM) 50 MG TAB 50 MILLIGRAM ORAL EVERY 6 HOURS NEEDED. as n eeded for PAIN SCALE 4-6 Moderate Qty = 20 No Refills Objective VS/I O Last Documented: Result Date Time Pulse Ox 97 12/23 1112 B/P 125/80 12/23 1112 B/P Mean 94.7 12/23 1112 Temp 97.7 12/23 1112 Pulse 85 12/23 1112 Resp 18 12/23 1112 O2 Delivery Room air 12/23 1055 24 hour I O ending at 0700: 12/23 0700 12/22 1900 Intake Total 250 Output Total Balance 250 Intake, Oral 250 General appearance: alert, awake, oriented Head/Eyes: atraumatic, EOMI, normocephalic ENT: moist mucosal membranes, normal ear left, n ormal ear right Neck: full range of motion, non-tender, normal thyroid, supple/no meningismus, no bruit/NL carotids, no JVD, no masses or swell ing Cardiovascular: normal heart sounds, regular rat e rhythm, no murmur Respiratory: aerating well, symmetric expansion, no distress Abdomen: non-tender, soft, no distention, no gua rding Extremities: moves all, normal range of motion, no cyanosis Musculoskeletal: normal inspection, painless ran ge of motion Neuro/COMPLIANCE ASSISTANT: alert, oriented X 3, CNII-XII intact, normal speech, reflexes equal bilat, no motor deficits, no sensory deficits Skin: dry, intact Psychiatry: normal affect, n ormal judgment/insight, normal mood, not homicidal, not suicidal Results Findings/Data: Laboratory Tests: 12/23 12/23 12/23 12/23 12/22 1112 0539 0526 0018 5614 Chemistry Sodium (136 - 145 mmol/L) 139 Potassium (3.5 - 5.1 mmol/L) 3.7 Chloride (98 - 107 mmol/L) 105.0 Carbon Dioxide (21 - 32 mmol/L) 26.0 Anion Gap (10 - 20) 11.7 BUN (7 - 18 mg/dL) 14 Creatinine (0.55 - 1.02 mg/dL) 0.70 0.70 Glomerular Filtr Rate (>=60 mL/min) > 60 BUN/Creatinine Ratio (10 - 20) 19.4 Glucose (74 - 106 mg/dL) 148 H POC Glucose (74 - 106 mg/dL) 121 H 169 H 134 H Calcium (8.5 - 10.1 mg/dL) 8.5 Hematology WBC (4.5 - 12.5 K/mm3) 8.2 RBC (3.7 - 5.2 mill/mm3) 4.67 Hgb (11.5 - 15.5 gram/dL) 13.5 Hct (36.0 - 46.0 %) 40.8 MCV (80 - 98 fL) 87.4 MCH (27.0 - 33.0 picogram) 28.9 MCHC (33.0 - 36.0 gram/dL) 33.1 RDW (11.6 - 16.2 %) 12.5 RDW Std Deviation (37.0 - 51.0 fL) 39.6 Plt Count (150 - 450 K/mm3) 206 MPV (6.7 - 11.0 fL) 12.0 H Neut % (Auto) (39.0 - 69.0 %) 55.7 Lymph % (Auto) (25.0 - 55.0 %) 32.0 Converse % (Auto) (0.0 - 10.0 %) 9.1 Eos % (Auto) (0.0 - 5.0 %) 1.8 Baso % (Auto) (0.0 - 1.0 %) 0.5 Neut # (Auto) (1.8 - 7.7 K/mm3) 4.57 Lymph # (Auto) (1.0 - 5.0 K/mm3) 2.62 Converse # (Auto) (0 - 0.8 K/mm3) 0.75 Eos # (Auto) (0.0 - 0.5 K/mm3) 0.15 Baso # (Auto) (0.0 - 0.2 K/mm3) 0.04 Add Manual Diff NO Nucleated RBC % (0 - 0 %) 0.0 Nucleated RBCs # (Man) (0.0 - 0.1 0.00 K/mm3) 12/22 1619 Chemistry POC Glucose (74 - 106 mg/dL) 170 H Results: vital signs reviewed Discharge Instructions PCP PCP follow-up: PCP: Benjamin Ramirez MD Discharge to: Home/Self Care Additional Discharge Routines: PCP Follow-Up, Co nsultant Follow-Up Diet: Diabetic, Cardiac Activity: As Tolerated Prescriptions: e-prescribe Discharge management: greater than 30 mins, face to face encounter Follow-up Appointments PCP follow-up: PCP: Benjamin Ramirez MD PCP follow up timeframe: In 1-2 weeks Attending Physician: Attending Physician: Josr Mcneill MD Consulting provider 1: Provider 1: Juan Carlos Jarvis DPM Specialty: Podiatry Consult follow up timeframe: In 1-2 weeks Treatments Procedures Lab: Chemistry last 24 hrs: 12/23 12/23 0526 0018 Chemistry Sodium (136 - 145 mmol/L) 139 Potassium (3.5 - 5.1 mmol/L) 3.7 Chloride (98 - 107 mmol/L) 105.0 BUN (7 - 18 mg/dL) 14 Creatinine (0.55 - 1.02 mg/dL) 0.70 0.70 Glucose (74 - 106 mg/dL) 148 H Hematology last 24 hrs: 12/23 0018 Hematology WBC (4.5 - 12.5 K/mm3) 8.2 Hgb (11.5 - 15.5 gram/dL) 13.5 Hct (36.0 - 46.0 %) 40.8 Plt Count (150 - 450 K/mm3) 206 Neut % (Auto) (39.0 - 69.0 %) 55.7 Quality: Discharge Current Medications Current medication review: I attest that the foregoing medication list in [facility] medical record is true, accurate, and complete to the best of my knowled ge. Electronically Signed by Lorena Mclain on 0 12/23/21 at 1335 at 1526 RPT #:[id number] END OF REPORT 2021-12-23 12:03:00-00:00 [facility] ([facility] Podiatry Progress Note REPORT#:[id number] REPORT STATUS: Signed DATE:12/23/21 TIME: 1203 PATIENT: GLENNA HUBBARD UNIT #: [id number] ROOM/BED: [address] : [birth year] AGE: 41 SEX: F ATTEND: Felicity Mclain ADM AUTHOR: Grant Laguna DPM * ALL edits or amendments must be made on the el [employer]/computer document * Subjective HPI: 41 yo female was seen for ulcer on left foot Objective General VS: Last Documented: Result Date Time Pulse Ox 97 12/23 1112 B/P 125/80 12/23 1112 B/P Mean 94.7 02/03 1112 Temp 97.7 12/23 1112 Pulse 85 12/23 1112 Resp 18 12/23 1112 O2 Delivery Room air 12/23 1055 O2 Flow Rate 8 12/23 1042 PATIENT WEIGHT: Weight (lb): 209 Weight (oz): 7.03 Weight (kg): 95.000 Medications: Active Meds + DC'd Last 24 Hrs Acetaminophen (TYLENOL) 0 .STK-MED ONE PO (DC) Gabapentin (NEURONTIN) 0 .STK-MED ONE .ROUTE (DC r) Acetaminophen (TYLENOL) 0 .STK-MED ONE .ROUTE (D C) Acetaminophen (TYLENOL) 650 MG PACU ONCE ONE PO (DC) Acetaminophen (TYLENOL EXTRA STRENGTH) 500 MG PA CU ONCE PRN PRN PO Diphenhydramine HCl (diphenhydrAMINE HCL) 12.5 M G PROCEDURE PRN IV Fentanyl Citrate (SUBLIMAZE INJ. 2ML) 25 MCG Q5M PRN PRN IV Gabapentin (NEURONTIN) 300 MG PACU ONCE ONE PO ( DC) Hydrocodone Bitart/Acetaminophen (NORCO 5/325 TA BLET) 1 TAB PACU ONCE PRN PRN PO Hydromorphone HCl (HYDROmorphone HCL) 1 MG Q10M PRN PRN IV Lidocaine (LIDODERM 5% PATCH) 1 PATCH PACU ONCE ONE TOPICAL (DC) Metoclopramide HCl (METOCLOPRAMIDE HCL) 10 MG ON CE PRN IV Morphine Sulfate (morphine SULFATE) 2 MG Q5M PRN PRN IV Morphine Sulfate (morphine SULFATE) 4 MG Q5M PRN PRN IV Ondansetron HCl (ondansetron HCL) 4 MG ONCE PRN IV Promethazine HCl (PHENERGAN) 12.5 MG PROCEDURE I M (CKD) Glycopyrrolate (GLYCOPYRROLATE) 0 .STK-MED ONE . ROUTE (DC) Lidocaine HCl (LIDOCAINE HCL 1%) 0 .STK-MED ONE .ROUTE (DC) Lidocaine HCl (LIDOCAINE HCL 2% PF) 0 .STK-MED O NE .ROUTE (DC) Ondansetron HCl (ondansetron HCL) 0 .STK-MED ONE .ROUTE (DCr) Bupivacaine HCl (BUPIVACAINE HCL) 0 .STK-MED ONE .ROUTE (DC) Fentanyl Citrate (SUBLIMAZE INJ. 2ML) 0 .STK-MED ONE .ROUTE (DC) Metoclopramide HCl (METOCLOPRAMIDE HCL) 0 .STK-M ED ONE .ROUTE (DC) Midazolam HCl (VERSED) 0 .STK-MED ONE .ROUTE (DC r) Propofol (propofoL) 20 ML .STK-MED ONE IV (DC) Vancomycin HCl (VANCOMYCIN HCL) 1,000 MG Q8H IV Sodium Chloride (SODIUM CHLORIDE 0.9%) 250 ML Insulin Lispro Protam/Lispro Human (HumaLOG MIX 75/25) 25 UNITS BID 6A 6P SUBQ Miscellaneous Information (VANCOMYCIN PHARMACY T O DOSE) 1 EACH ASDIR IV (CKD) Ceftriaxone Sodium (ROCEPHIN) 1,000 MG DAILY IV Sodium Chloride (SODIUM CHLORIDE 0.9% PF) 10 ML Lisinopril (lisinopriL) 10 MG DAILY PO Insulin Human Lispro (HUMALOG) S/SCALE HIGH AC HS SUBQ Acetaminophen (TYLENOL EXTRA STRENGTH) 500 MG Q6 H PRN PRN PO Calcium Carbonate (TUMS 500MG) 1,000 MG Q6H PRN PRN PO Dextrose/Water (DEXTROSE 50%-WATER) 50 ML ASDIR PRN IV (CKD) Hydrocodone Bitart/Acetaminophen (NORCO 5/325 TA BLET) 1 TAB Q6H PRN PRN PO (DC) Melatonin (MELATONIN) 6 MG BEDTIME PRN PRN PO Simethicone (SIMETHICONE) 80 MG Q6H PRN PRN PO Tramadol HCl (ULTRAM) 50 MG Q6H PRN PRN PO I O: 24 hour I O ending at 0700: 02/03 0700 02/02 1900 Intake Total 250 Output Total Balance 250 Intake, Oral 250 Nutrition assessment: The data set between the solid lines has been im ported from the dietitian's assessment. Any exceptions have been noted under Provider comments. BMI Calculated: 31.8 Nutrition related diagnosis: Nutrition diagnosis details: Nutrition problem: Nutrition etiology: Nutrition signs and symptoms: Nutrition prescription: Dietitian name: Assessment completed: Provider comments on imported dietitian assessme nt: Physical Exam Wound/incision: Location: Left foot wound noted with eschar base along lat eral and dorsal foot with erythema noted, no fluctuant, no mal odor, no t racking, no mal odor-erythema is improved Head/Eyes: atraumatic ENT: normal dentition Neck: full range of motion Cardiovascular: normal capillary refill Abdomen: soft, non-tender Genitourinary: not indicated, deferred Extremities: Left moves all, Right moves all LE vascular pulse assess: Palpable L posterior tibialis, Palpable L dorsal is pedis Capillary refill: Capillary refill (in seconds): < 3 seconds Left foot Neuro/COMPLIANCE ASSISTANT: alert, oriented X 3 Results Findings/Data: Laboratory Tests: 12/23 12/23 12/23 12/23 12/22 1112 0539 0526 0018 2219 Chemistry Sodium (136 - 145 mmol/L) 139 Potassium (3.5 - 5.1 mmol/L) 3.7 Chloride (98 - 107 mmol/L) 105.0 Carbon Dioxide (21 - 32 mmol/L) 26.0 Anion Gap (10 - 20) 11.7 BUN (7 - 18 mg/dL) 14 Creatinine (0.55 - 1.02 mg/dL) 0.70 0.70 Glomerular Filtr Rate (>=60 mL/min) > 60 BUN/Creatinine Ratio (10 - 20) 19.4 Glucose (74 - 106 mg/dL) 148 H POC Glucose (74 - 106 mg/dL) 121 H 169 H 134 H Calcium (8.5 - 10.1 mg/dL) 8.5 Hematology WBC (4.5 - 12.5 K/mm3) 8.2 RBC (3.7 - 5.2 mill/mm3) 4.67 Hgb (11.5 - 15.5 gram/dL) 13.5 Hct (36.0 - 46.0 %) 40.8 MCV (80 - 98 fL) 87.4 MCH (27.0 - 33.0 picogram) 28.9 MCHC (33.0 - 36.0 gram/dL) 33.1 RDW (11.6 - 16.2 %) 12.5 RDW Std Deviation (37.0 - 51.0 fL) 39.6 Plt Count (150 - 450 K/mm3) 206 MPV (6.7 - 11.0 fL) 12.0 H Neut % (Auto) (39.0 - 69.0 %) 55.7 Lymph % (Auto) (25.0 - 55.0 %) 32.0 Converse % (Auto) (0.0 - 10.0 %) 9.1 Eos % (Auto) (0.0 - 5.0 %) 1.8 Baso % (Auto) (0.0 - 1.0 %) 0.5 Neut # (Auto) (1.8 - 7.7 K/mm3) 4.57 Lymph # (Auto) (1.0 - 5.0 K/mm3) 2.62 Converse # (Auto) (0 - 0.8 K/mm3) 0.75 Eos # (Auto) (0.0 - 0.5 K/mm3) 0.15 Baso # (Auto) (0.0 - 0.2 K/mm3) 0.04 Add Manual Diff NO Nucleated RBC % (0 - 0 %) 0.0 Nucleated RBCs # (Man) (0.0 - 0.1 K/mm3) 0.00 12/22 1619 Chemistry POC Glucose (74 - 106 mg/dL) 170 H Diagnosis, Assessment Plan Free Text A P: 41 yo female was seen for unstageable ulcer with cellulitis left foot Xray left foot No acute abnormality by plain film. Small heel spur. Recommend abx per primary team recommend elvate left lower extremity MRI ordered Awaiting final images for treatment plan. In the interim, recommend abx Thank you for the consultation 12/19/2021 Recommend abx per primary team recommend elvate left lower extremity MRI results pending arterial doppler results pending 12/20/2021 Recommend abx per primary team recommend elvate left lower extremity MRI results pending arterial doppler results pending no significant changes 12/21/2021 Recommend abx per primary team recommend elvate left lower extremity MRI results Oblique fracture line visible within the distal fourth metatarsal bone with diffuse edema and enhancement of nearly th e entire fourth metatarsal bone with soft tissue swelling. Diff erential diagnosis includes osteomyelitis and stress fracture. Cor relate clinically. No drainable abscess. No other fractures or other areas of abnormal enhancement to suggest osteomyelitis either. Pt recalled dropping 1 L Tequilla bottle on her foot before having this wound. Discussed with patient to have possible debridem ent, pending arterial doppler results 12/22/2021 arterial doppler results Mild plaque with <50% stenosis in left lower ext remity Recommend abx per primary team recommend elevate left lower extremity Discussed with the patient all associated risks, benefits, alternative, I discussed risks which include but not li mited to: Non-healing wound, inability to ambulate, further surgeries, infection, blood loss, limb loss and possible life loss. Pt expressed understanding and wish t o proceed with the surgery. Pt is scheduled on 12/23/2021 to have left foot excisional removal of devitalized soft tissues NPO ordered 12/23/2021 Patient is cleared from the foot and ankle standpoint for discharge. Patient is to follow-up within 1 week days of discharge. Th e patient is to call to reestablish an a ppointment on an outpatient setting. Do not get the area wet. Strict nonweightbearing. Elevation. Re commend antibiotics as per primary care recommendation post op shoe ordered Consultants: podiatry Electronically Signed by Grant Laguna DPM on 01/02 at 2329 RPT #:[id number] END OF REPORT 2021-12-23 10:22:00-00:00 [facility] ([facility]) Operative Note - Full REPORT#:[id number] REPORT STATUS: Signed DATE:12/23/21 TIME: 102 PATIENT: GLENNA HUBBARD UNIT #: [id number] ROOM/BED: [address] : 78 AGE: 41 SEX: F ATTEND: Felicity Mclain MSN ADM AUTHOR: Grant Laguna DPM * ALL edits or amendments must be made on the el [employer]/computer document * Operative Report Start date: 12/23/21 Start time: 944 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 ESTIMATED BLOOD LOSS: 5 mL. MATERIALS: none INJECTABLES: 18 mL of 1:1 1% lidocaine and 0.25% marcaine to left ankle COMPLICATIONS: None. PROCEDURE IN DETAIL The patient was consented for left foot excisional removal of devitalized soft tissues. The patient understands. I have discuss ed all associated risks, benefits, and alternatives. I have discussed the associated risks, which include but are not limited to spread of infection, further necrosis, limb loss, inability to walk, nonhealing wound, life loss. The patient understands and wishes to proceed. No guarantees have been given to the patient. The consent was identified, witnessed, and mona d. The patient was then transferred to the OR and left on the operating table. Following general anesthesia, the left foot was then prepped and d raped in the usual sterile fashion. Left foot Excsional removal of devitalized soft tissues Attention was directed to dorsal left foot where eschar base was noted, a #15 blade was used to remove all devitalized subcutaneous tissues using # 15 blade to healthy bleeding tissues. The surgical site was irrigated with normal sali ne. Deep wound culture and anaerobic culture were taken. The devitalized so ft tissues were sent for pathology. The surgical site was dressed with adaptic, wet to dry, 4x4 sterile gauze, kerlix. 18 mL of 1:1 1% lidocaine and 0.25% marcaine was injected to left ankle The patient tolerated the procedure well and was transferred to the recovery room with all vital signs stable and vascular st atus intact to the foot. Following postoperative monitoring the patient w ill be transfer to floor Primary Surgeon: Dr. Laguna Bowling Teacher(s): none Anesthesia: general anesthesia Operative findings: 1) devitalized soft tissues 2) flushed with normal saline 3) wound culture taken 4) injected with 18 cc of 1% lidocaine and 0.25% marcaine 5) dressed with adaptic, wet to dry, 4x4 sterile gauze, kerlix Complications: none Estimated blood loss in ml's: less than 5 cc Specimens removed/altered: devitalized soft tiss ues Implant(s): none Electronically Signed by Grant Laguna DPM on 01/02 at 2328 RPT #:[id number] END OF REPORT 2021-12-23 10:19:00-00:00 [facility] ([facility]) Brief Op Chidi REPORT#:[id number] REPORT STATUS: Signed DATE:12/23/21 TIME: 1019 PATIENT: GLENNA HUBBARD UNIT #: [id number] ROOM/BED: [address] : 78 AGE: 41 SEX: F ATTEND: Felicity Mclain ADM AUTHOR: Grant Laguna DPM * ALL edits or amendments must be made on the [employer]computer document * Op/Inv Proc Note - Brief Pre-procedure diagnosis: left foot infected neuropathic ulcer Post-procedure diagnosis: same as pre procedure dx Procedures performed: Left foot excisional removal of devitalized soft tissues Primary Surgeon: Dr. Laguna Bowling Teacher(s): none Findings: 1) devitalized soft tissues 2) flushed with normal saline 3) wound culture taken 4) injected with 18 cc of 1% lidocaine and 0.25% marcaine 5) dressed with adaptic, wet to dry, 4x4 sterile gauze, kerlix Complications: none Estimated blood loss in ml's: less than 5 cc Specimens removed/altered: devitalized soft tiss ues Electronically Signed by Grant Laguna DPM on 12/23 at 1021 RPT #:[id number] END OF REPORT 2021-12-23 09:20:00-00:00 [facility] ([facility]) Post Anesthesia Evaluation REPORT#:[id number] REPORT STATUS: Signed DATE:12/23/21 TIME: 919 PATIENT: GLENNA HUBBARD UNIT #: [id number] ROOM/BED: [address] : 78 AGE: 41 SEX: F ATTEND: Felicity Mclain MSN ADM AUTHOR: Brett Quispe DO * ALL edits or amendments must be made on the [employer] document * Post Anesthesia Evaluation Anes. changes from pre-op eval ORM Surgeries: Surgery Date and Time: 12/23/2021 0900 Primary Procedure: LT FOOT DEBRIDEMENT Anesthetic: general LMA Date: 12/23/21 Level of consciousness: no change, patient awake , able to answer questions, participate in this eval. Vital signs: Last Documented: Result Date Time Pulse Ox 97 12/23 1112 B/P 125/80 12/23 1112 B/P Mean 94.7 12/23 1112 Temp 36.5 12/23 1112 Pulse 85 12/23 1112 Resp 18 12/23 1112 O2 Delivery Room air 12/23 1055 O2 Flow Rate 8 12/23 1042 Cardiovascular: no change, CV system stable, vit al signs stable Respiratory/Airway: respiratory system stable, m aintains without support Pain: adequately controlled, pain med. administe red Hydration: adequate Temp status: greater than 96.8F Presence of N/V: no Anesthesia complications: no Other changes requiring f/u: none Conclusions: no apparent anes. issues, outpts ev al prior DC home Electronically Signed by Brett Quispe DO on at 2352 RPT #:[id number] END OF REPORT 2021-12-22 15:43:00-00:00 [facility] ([facility] Podiatry Progress Note REPORT#:[id number] REPORT STATUS: Signed DATE:12/22/21 TIME: 1543 PATIENT: GLENNA HUBBARD UNIT #: [id number] ROOM/BED: [address] : 78 AGE: 41 SEX: F ATTEND: Felicity Mclain MSN ADM AUTHOR: Grant Laguna DPSavanah * ALL edits or amendments must be made on the [employer]computer document * Subjective HPI: 41 yo female was seen for ulcer on left foot. Objective General VS: Last Documented: Result Date Time Pulse Ox 97 12/22 1159 B/P 142/92 12/22 1159 B/P Mean 108.4 12/22 1159 Temp 98.1 12/22 1159 Pulse 88 12/22 1159 Resp 20 12/22 1159 O2 Delivery Room air 12/22 0734 O2 Flow Rate 4 12/20 2244 PATIENT WEIGHT: Weight (lb): 209 Weight (oz): 7.03 Weight (kg): 95.000 Medications: Active Meds + DC'd Last 24 Hrs Vancomycin HCl (VANCOMYCIN HCL) 1,000 MG Q8H IV Sodium Chloride (SODIUM CHLORIDE 0.9%) 250 ML Insulin Lispro Protam/Lispro Human (HumaLOG MIX 75/25) 25 UNITS BID 6A 6P SUBQ Miscellaneous Information (VANCOMYCIN PHARMACY T O DOSE) 1 EACH ASDIR IV (CKD) Ceftriaxone Sodium (ROCEPHIN) 1,000 MG DAILY IV Sodium Chloride (SODIUM CHLORIDE 0.9% PF) 10 ML Lisinopril (lisinopriL) 10 MG DAILY PO Insulin Human Lispro (HUMALOG) S/SCALE HIGH AC HS SUBQ Acetaminophen (TYLENOL EXTRA STRENGTH) 500 MG Q6 H PRN PRN PO Calcium Carbonate (TUMS 500MG) 1,000 MG Q6H PRN PRN PO Dextrose/Water (DEXTROSE 50%-WATER) 50 ML ASDIR PRN IV (CKD) Hydrocodone Bitart/Acetaminophen (NORCO 5/325 TA BLET) 1 TAB Q6H PRN PRN PO Melatonin (MELATONIN) 6 MG BEDTIME PRN PRN PO Simethicone (SIMETHICONE) 80 MG Q6H PRN PRN PO Tramadol HCl (ULTRAM) 50 MG Q6H PRN PRN PO I O: 24 hour I O ending at 0700: 02/02 0700 02/01 1900 Intake Total 1800.00 Output Total Balance 1800.00 Intake, IV 500.00 Intake, Oral 1300 Number Voids 1 2 Nutrition assessment: The data set between the solid lines has been im ported from the dietitian's assessment. Any exceptions have been noted under Provider comments. BMI Calculated: 31.8 Nutrition related diagnosis: Nutrition diagnosis details: Nutrition problem: Nutrition etiology: Nutrition signs and symptoms: Nutrition prescription: Dietitian name: Assessment completed: Provider comments on imported dietitian assessme nt: Physical Exam General appearance: alert, awake, oriented Wound/incision: Location: Left foot wound noted with eschar base along lat eral and dorsal foot with erythema noted, no fluctuant, no mal odor, no t racking, no mal odor-erythema is improved Head/Eyes: atraumatic ENT: normal dentition Neck: full range of motion Cardiovascular: normal capillary refill Abdomen: soft, non-tender Genitourinary: not indicated, deferred Extremities: Left moves all, Right moves all LE vascular pulse assess: Palpable L posterior tibialis, Palpable L dorsal is pedis Capillary refill: Capillary refill (in seconds): < 3 seconds Left foot Neuro/COMPLIANCE ASSISTANT: alert, oriented X 3 Results Findings/Data: Laboratory Tests: 12/22 12/22 12/22 12/21 1157 0809 0628 2105 Chemistry POC Glucose (74 - 106 mg/dL) 174 H 122 H 147 H 233 H Diagnosis, Assessment Plan Free Text A P: 41 yo female was seen for unstageable ulcer with cellulitis left foot Xray left foot No acute abnormality by plain film. Small heel spur. Recommend abx per primary team recommend elvate left lower extremity MRI ordered Awaiting final images for treatment plan. In the interim, recommend abx Thank you for the consultation 12/19/2021 Recommend abx per primary team recommend elvate left lower extremity MRI results pending arterial doppler results pending 12/20/2021 Recommend abx per primary team recommend elvate left lower extremity MRI results pending arterial doppler results pending no significant changes 12/21/2021 Recommend abx per primary team recommend elvate left lower extremity MRI results Oblique fracture line visible within the distal fourth metatarsal bone with diffuse edema and enhancement of nearly th e entire fourth metatarsal bone with soft tissue swelling. Diff erential diagnosis includes osteomyelitis and stress fracture. Cor relate clinically. No drainable abscess. No other fractures or other areas of abnormal enhancement to suggest osteomyelitis either. Pt recalled dropping 1 L Tequilla bottle on her foot before having this wound. Discussed with patient to have possible debridem ent, pending arterial doppler results 12/22/2021 arterial doppler results Mild plaque with <50% stenosis in left lower ext remity Recommend abx per primary team recommend elevate left lower extremity Discussed with the patient all associated risks, benefits, alternative, I discussed risks which include but not li mited to: Non-healing wound, inability to ambulate, further surgeries, infection, blood loss, limb loss and possible life loss. Pt expressed understanding and wish t o proceed with the surgery. Pt is scheduled on 12/23/2021 to have left foot excisional removal of devitalized soft tissues NPO ordered Consultants: podiatry Electronically Signed by Grant Laguna DPM on 12/22 at 2157 RPT #:[id number] END OF REPORT 2021-12-22 15:38:00-00:00 [id number] [facility] PATIENT NAME: GLENNA HUBBARD ADMIT DATE: 12/18/21 ACCOUNT NO: [id number] ROOM NO: 3027 AGE: 41 REPORT TYPE: eNVL ARTERIAL SEX: F DATE OF : 76 ADMITTING PHYSICIAN:Amelia Herr MD ATTENDING PHYSICIAN:Lorena Mclain *[facility]* [address], [place] [address] Limited Lower Extremity Arterial Duplex Study Patient: Glenna Hubbard Study Date: 12/21/2021 BP: Location: [facility] URN: [id number] 572 : 1980 Age: 41 Height: / Gender: F Weight: / BMI/BSA: / *Ordering Physician: * Siddharth Heaton *Interpreting Physician: * Reilly Crisostomo MD *Insight Leader: * Miguel Dacosta Indications: Gangrene. Study data: Limited lower extremity arterial dup georgina study. Left evaluation with grayscale 2D imaging, color Dopp ler imaging, and spectral Doppler analysis. Location: [facility] status: Inpatient. Patient room number: 3027-A. Study status: Stephensidney vasques. Findings Lower extremity arteries: Left common femoral: The vessel has mixed plaque . Left deep femoral: The vessel has calcified plaq ue. Left femoral: The proximal vessel has mixed plaq ue. The mid vessel has mixed plaque. The distal vessel has calcified pl aque. Left popliteal: The proximal vessel has calcifie d plaque. The distal vessel has calcified plaque. Left anterior tibial: The proximal vessel has mi xed plaque. The mid vessel has mixed plaque. Left posterior tibial: The proximal vessel has m ixed plaque. The mid vessel has mixed plaque. The distal vessel has m ixed plaque. Left dorsal pedal: The vessel has calcified plaq ue. PATIENT NAME: GLENNA HUBBARD 70 Arterial flow: Location PSV* Flow analysis L ARCHITECTURE PROFESSOR 176 Triphasic waveform L DFA 98 Triphasic waveform L FA, prox 125 Triphasic waveform L FA, mid 112 Triphasic waveform L FA, distal 127 Triphasic waveform L popliteal, prox 72 Triphasic waveform L popliteal, distal 87 Triphasic waveform L OUTSIDE MACHINIST APPRENTICE, prox 106 Triphasic waveform L OUTSIDE MACHINIST APPRENTICE, mid 94 Triphasic waveform L OUTSIDE MACHINIST APPRENTICE, distal 81 Triphasic waveform L KWADWO, prox 91 Triphasic waveform L KWADWO, mid 100 Triphasic waveform L DPA 67 Triphasic waveform *Velocities are expressed in cm/sec, Diameters are expressed in cm Conclusions Mild plaque with <50% stenosis in left lower ext remity Prepared and electronically signed by Reilly Crisostomo MD 12/22/2021 15:38 Electronically Signed by Reilly Crisostomo MD on 0 12/22/21 at 1538 PATIENT NAME: GLENNA HUBBARD 70 2021-12-22 13:02:00-00:00 [facility] ([facility]) Hospitalist Progress Note REPORT#:[id number] REPORT STATUS: Signed DATE:12/22/21 TIME: 1302 PATIENT: GLENNA HUBBARD UNIT #: [id number] ROOM/BED: [address] : [birth year] AGE: 41 SEX: F ATTEND: Felicity Mclain MSN ADM AUTHOR: Lorena Mclain MSN * ALL edits or amendments must be made on the [employer]computer document * Subjective Chief complaint: left foot wound, pain controlled, dopple rs pending, plan for debridement after dopplers Patient reports: Yes: pain. Nursing reports: Yes: pain. Review of Systems Skin: Reports: other (left foot wound). All systems rev neg: except as marked Objective General VS/I O: Vital Signs: Date Time Temp Pulse Resp B/P B/P Pulse O2 O2 F low FiO2 Mean Ox Delivery Rate 12/22 1159 98.1 88 20 142/92 108.4 97 12/22 0734 97.9 91 17 120/77 91.5 98 Room air 12/22 0345 98.4 94 14 120/77 91.1 97 Room air 12/21 2348 98.4 96 14 109/69 82.7 98 Room air 12/21 2106 97.5 94 16 132/83 99.3 97 Room air 12/21 1721 85 17 149/92 111.1 12/21 1720 98.1 86 18 99 24 hour I O ending at 0700: 12/22 0700 12/21 1900 Intake Total 1800.00 Output Total Balance 1800.00 Intake, IV 500.00 Intake, Oral 1300 Number Voids 1 2 PATIENT WEIGHT: Weight (lb): 209 Weight (oz): 7.03 Weight (kg): 95.000 Medications: Active Meds + DC'd Last 24 Hrs Vancomycin HCl (VANCOMYCIN HCL) 1,000 MG Q8H IV Sodium Chloride (SODIUM CHLORIDE 0.9%) 250 ML Insulin Lispro Protam/Lispro Human (HumaLOG MIX 75/25) 25 UNITS BID 6A 6P SUBQ Miscellaneous Information (VANCOMYCIN PHARMACY T O DOSE) 1 EACH ASDIR IV (CKD) Ceftriaxone Sodium (ROCEPHIN) 1,000 MG DAILY IV Sodium Chloride (SODIUM CHLORIDE 0.9% PF) 10 ML Lisinopril (lisinopriL) 10 MG DAILY PO Insulin Human Lispro (HUMALOG) S/SCALE HIGH AC HS SUBQ Acetaminophen (TYLENOL EXTRA STRENGTH) 500 MG Q6 H PRN PRN PO Calcium Carbonate (TUMS 500MG) 1,000 MG Q6H PRN PRN PO Dextrose/Water (DEXTROSE 50%-WATER) 50 ML ASDIR PRN IV (CKD) Hydrocodone Bitart/Acetaminophen (NORCO 5/325 TA BLET) 1 TAB Q6H PRN PRN PO Melatonin (MELATONIN) 6 MG BEDTIME PRN PRN PO Simethicone (SIMETHICONE) 80 MG Q6H PRN PRN PO Tramadol HCl (ULTRAM) 50 MG Q6H PRN PRN PO Physical Exam General appearance: alert, awake, oriented Head/Eyes: atraumatic, EOMI, normocephalic ENT: moist mucosal membranes, normal ear left, n ormal ear right Neck: full range of motion, non-tender, normal thyroid, supple/no meningismus, no bruit/NL carotids, no JVD, no masses or swell ing Cardiovascular: normal heart sounds, regular rat e rhythm, no murmur Respiratory: aerating well, symmetric expansion, no distress Abdomen: non-tender, soft, no distention, no gua rding Extremities: moves all, normal range of motion, no cyanosis Musculoskeletal: normal inspection, painless ran ge of motion Neuro/COMPLIANCE ASSISTANT: alert, oriented X 3, CNII-XII intact, normal speech, reflexes equal bilat, no motor deficits, no sensory deficits Skin: dry, intact Psychiatry: normal affect, n ormal judgment/insight, normal mood, not homicidal, not suicidal Results Findings/Data: Laboratory Tests 12/22 12/22 12/22 12/21 12/21 1157 0809 0628 2105 1542 Chemistry POC Glucose (74 - 106 mg/dL) 174 H 122 H 147 H 233 H 136 H Results: vital signs reviewed Free Text Obj Notes Free Text Obj Notes: Left foot-patient has swelling around the left a nkle extending into the left lower leg. She also swelling on the dorsum of th e left foot most specifically on the lateral aspect. She has a open wo und with an eschar nondraining that is 1 x 3 inches along the lateral aspect of the lef t foot over the mid fifth metatarsal, she also has a 2 x 1 cm open lesion with a eschar nondraining mid third metatarsal shaft on the dorsum of the foot . There is no surrounding cellulitis but there is edema. Pulses intact neg ative sensory deficit Diagnosis, Assessment Plan Consultants: podiatry Free Text DxA P Notes Free text DxA P notes: left foot ulcer with unstageable ulcer/celluliti s MRI foot noted, concerning for possible osteomye litis vs stress fracture arterial/doppler of LLE pending continue Vanco/Rocephin plan for debridement pending dopplers wound care, podiatry following 3. DM2 continue insulin 75/25, SSI HgA1c 13.0 pediatric nephrologist eval 4. HTN continue Lisinopril, monitor 5. Obesity, BMI 31.8 dietary restrictions Quality: Gen Med Crit Care VTE Prophylaxis VTE prophylaxis initiated: yes (Lovenox) Current Medications Current medication review: I attest that the foregoing medication list in [facility] medical record is true, accurate, and complete to the best of my knowled ge. Electronically Signed by Lorena Mclain on 0 12/22/21 at 1307 at 2145 RPT #:[id number] END OF REPORT 2021-12-22 12:50:00-00:00 [id number] [facility] PATIENT NAME: GLENNA HUBBARD ADMIT DATE: 12/18/21 ACCOUNT NO: [id number] ROOM NO: V.3027 AGE: 41 REPORT TYPE: eNVL VENOUS ULTRASOUND SEX: F DATE OF : [birth year] ADMITTING PHYSICIAN:Amelia Herr MD ATTENDING PHYSICIAN:Lorena Mclain *[facility]* [address], [place] [address] Limited Lower Extremity Venous Duplex Evaluation Patient: Glenna Hubbard Study Date: 12/21/2021 BP: Location: [facility] URN: [id number] 572 : 1980 Age: 41 Height: / Gender: F Weight: / BMI/BSA: / *Ordering Physician: * Siddharth Heaton *Interpreting Physician: * Zana More MD *Insight Leader: Kristen Dacosta Indications: Swelling of limb. Study data: Limited lower extremity venous duple x evaluation. Left evaluation with grayscale 2D imaging, color Dopp ler imaging, and spectral Doppler analysis. Location: [facility] status: Inpatient. Patient room number: 3027-A. Study status: Tima plascencia Venous flow and imaging: + + + *Location *Properties * + + + *L CFV *Phasic; spontaneous; normal augmentation ; compressible* + + + *L GSV *Phasic; spontaneous; normal augmentation ; compressible* + + + *L DFV *Phasic; spontaneous; normal augmentation ; compressible* + + + *L FV *Phasic; spontaneous; normal augmentation; compressible* + + + *L popliteal*Phasic; spontaneous; normal augment ation; compressible* PATIENT NAME: GLENNA HUBBARD 70 + + + *L PTV *Phasic; spontaneous; normal augmentation ; compressible* + + + *R CFV *Phasic; spontaneous; normal augmentation ; compressible* + + + *R GSV *Phasic; spontaneous; normal augmentation ; compressible* + + + Conclusions 1. There is no evidence of acute deep or superfi cial venous thrombosis noted in the left lower extremity. 2. The right common femoral vein fully compresse s and demonstrates normal venous flow. 3. THE RIGHT GREAT SAPHENOUS VEIN FULLY COMPRESS ES AND DEMONSTRATES NORMAL FLOW. Prepared and electronically signed by Zana More MD 12/22/2021 12:49 Electronically Signed by Zana More MD on 0 12/22/21 at 1250 PATIENT NAME: GLENNA HUBBARD 70 2021-12-21 19:13:00-00:00 [facility] Podiatry Progress Note REPORT#:[id number] REPORT STATUS: Signed DATE:12/21/21 TIME: 1912 PATIENT: GLENNA HUBBARD UNIT #: [id number] ROOM/BED: [address] : [birth year] AGE: 41 SEX: F ATTEND: Felicity Mclain MSN ADM AUTHOR: Grant Laguna DPM * ALL edits or amendments must be made on the el [employer]/computer document * Subjective HPI: 41 yo female was seen for ulcer on left foot. Objective General VS: Last Documented: Result Date Time B/P 149/92 12/21 1721 B/P Mean 111.1 12/21 1721 Pulse 85 12/21 1721 Resp 17 12/21 1721 Pulse Ox 99 12/21 1720 Temp 98.1 12/21 1720 O2 Delivery Room air 12/21 1104 O2 Flow Rate 4 12/20 2244 PATIENT WEIGHT: Weight (lb): 209 Weight (oz): 7.03 Weight (kg): 95.000 Medications: Active Meds + DC'd Last 24 Hrs Vancomycin HCl (VANCOMYCIN HCL) 1,000 MG Q8H IV Sodium Chloride (SODIUM CHLORIDE 0.9%) 250 ML Insulin Lispro Protam/Lispro Human (HumaLOG MIX 75/25) 25 UNITS BID 6A 6P SUBQ Vancomycin HCl (VANCOCIN) 1,250 MG Q12H IV (DC) Sodium Chloride (SODIUM CHLORIDE 0.9%) 500 ML Miscellaneous Information (VANCOMYCIN PHARMACY T O DOSE) 1 EACH ASDIR IV (CKD) Ceftriaxone Sodium (ROCEPHIN) 1,000 MG DAILY IV Sodium Chloride (SODIUM CHLORIDE 0.9% PF) 10 ML Lisinopril (lisinopriL) 10 MG DAILY PO Insulin Human Lispro (HUMALOG) S/SCALE HIGH AC HS SUBQ Acetaminophen (TYLENOL EXTRA STRENGTH) 500 MG Q6 H PRN PRN PO Calcium Carbonate (TUMS 500MG) 1,000 MG Q6H PRN PRN PO Dextrose/Water (DEXTROSE 50%-WATER) 50 ML ASDIR PRN IV (CKD) Hydrocodone Bitart/Acetaminophen (NORCO 5/325 TA BLET) 1 TAB Q6H PRN PRN PO Melatonin (MELATONIN) 6 MG BEDTIME PRN PRN PO Simethicone (SIMETHICONE) 80 MG Q6H PRN PRN PO Tramadol HCl (ULTRAM) 50 MG Q6H PRN PRN PO I O: 24 hour I O ending at 0700: 12/21 0700 12/20 1900 Intake Total Output Total Balance Patient 95 kg Weight Weight Standing scale Measurement Method Nutrition assessment: The data set between the solid lines has been im ported from the dietitian's assessment. Any exceptions have been noted under Provider comments. BMI Calculated: 31.8 Nutrition related diagnosis: Nutrition diagnosis details: Nutrition problem: Nutrition etiology: Nutrition signs and symptoms: Nutrition prescription: Dietitian name: Assessment completed: Provider comments on imported dietitian assessme nt: Physical Exam General appearance: alert, awake, oriented Wound/incision: Location: Left foot wound noted with eschar base along lat eral and dorsal foot with erythema noted, no fluctuant, no mal odor, no tr acking, no mal odor-erythema is improved Head/Eyes: atraumatic ENT: normal dentition Neck: full range of motion Cardiovascular: normal capillary refill Abdomen: soft, non-tender Genitourinary: not indicated, deferred Extremities: Left moves all, Right moves all LE vascular pulse assess: Palpable L posterior tibialis, Palpable L dorsal is pedis Capillary refill: Capillary refill (in seconds): < 3 seconds Left foot Neuro/COMPLIANCE ASSISTANT: alert, oriented X 3 Results Findings/Data: Laboratory Tests: 12/21 12/21 12/21 12/21 12/20 1542 1057 0754 0553 2112 Chemistry POC Glucose (74 - 106 mg/dL) 136 H 208 H 186 H 184 H 218 H Diagnosis, Assessment Plan Free Text A P: 41 yo female was seen for unstageable ulcer with cellulitis left foot Xray left foot No acute abnormality by plain film. Small heel spur. Recommend abx per primary team recommend elvate left lower extremity MRI ordered Awaiting final images for treatment plan. In the interim, recommend abx Thank you for the consultation 12/19/2021 Recommend abx per primary team recommend elvate left lower extremity MRI results pending arterial doppler results pending 12/20/2021 Recommend abx per primary team recommend elvate left lower extremity MRI results pending arterial doppler results pending no significant changes 12/21/2021 Recommend abx per primary team recommend elvate left lower extremity MRI results Oblique fracture line visible within the distal fourth metatarsal bone with diffuse edema and enhancement of nearly th e entire fourth metatarsal bone with soft tissue swelling. Diff erential diagnosis includes osteomyelitis and stress fracture. Cor relate clinically. No drainable abscess. No other fractures or other areas of abnormal enhancement to suggest osteomyelitis either. Pt recalled dropping 1 L Tequilla bottle on her foot before having this wound. Discussed with patient to have possible debridem ent, pending arterial doppler results Consultants: podiatry Electronically Signed by Grant Laguna DPM on 12/22 at 0900 RPT #:[id number] END OF REPORT 2021-12-21 09:59:00-00:00 [facility] ([facility]) Hospitalist Progress Note REPORT#:[id number] REPORT STATUS: Signed DATE:12/21/21 TIME: 0959 PATIENT: GLENNA HUBBARD UNIT #: [id number] ROOM/BED: [address] : 78 AGE: 41 SEX: F ATTEND: Felicity Mclain MSN ADM AUTHOR: Siddharth Heaton NP * ALL edits or amendments must be made on the el [employer]/computer document * Subjective Chief complaint: left foot wound/swelling/blisters swelling improved pending dopplers Review of Systems All systems rev neg: except as marked Objective General VS/I O: Vital Signs: Date Time Temp Pulse Resp B/P B/P Pulse O2 O2 F low FiO2 Mean Ox Delivery Rate 12/21 1104 97.9 90 17 124/83 96.5 97 Room air 12/21 0755 98.1 96 17 118/80 92.4 96 Room air 12/21 0551 98.1 92 18 114/75 88.3 95 Room air 12/20 2244 Nasal 4 cannula 12/20 2013 98.2 93 18 124/86 98.6 99 12/20 1531 98.1 92 18 140/94 109.1 99 Room air 12/20 1125 97.9 88 17 166/98 120.5 97 Room air 24 hour I O ending at 0700: 12/21 0700 12/20 1900 Intake Total Output Total Balance Patient 95 kg Weight Weight Standing scale Measurement Method PATIENT WEIGHT: Weight (lb): 209 Weight (oz): 7.03 Weight (kg): 95.000 Physical Exam General appearance: alert, awake, oriented Head/Eyes: atraumatic, clear cornea, EOMI, alexis l conjunctiva/sclera, normal eyelids/periorb., normocephalic, PERRL ENT: normal dentition, normal ear left, normal e ar right, normal nose, normal pharynx, normal sinus Neck: full range of motion, non-tender, normal thyroid, supple/no meningismus, no bruit/NL carotids, no JVD, no masses or swell ing Cardiovascular: normal capillary refill, normal heart sounds, regular rate rhythm, no ectopy, no gallop, no heave, no murmu r, no rub, no thrill Respiratory: aerating well, clear to auscultatio n, symmetric expansion, no distress Abdomen: non-tender, normal bowel sounds , soft, no distention, no guarding, no hernia, no mass/organomegaly, no rebound Extremities: moves all, normal capillary refill, normal range of motion Musculoskeletal: normal inspection, painless ran ge of motion Neuro/COMPLIANCE ASSISTANT: alert, oriented X 3, CNII-XII intact, normal speech, reflexes equal bilat, no motor deficits, no sensory deficits Skin: dry, intact Lymphatics: axilla normal, inguinal normal, neck normal, no lymphadenopathy Psychiatry: normal affect, n ormal judgment/insight, normal mood, not homicidal, not suicidal Results Findings/Data: Laboratory Tests 12/21 12/21 12/20 12/20 12/20 0754 0553 2112 1533 1127 Chemistry POC Glucose (74 - 106 mg/dL) 186 H 184 H 218 H 228 H 224 H Laboratory Tests 12/20 1455 Toxicology Random Vancomycin (5.0 - 45.0 UG/ML) 8.3 Radiology data: Recent Impressions: MAGNETIC RESONANCE IMAGING - MRI LOW EXT W WO CO NT LT 12/20 4255 Report Impression - Status: SIGNED Entered: 12/21/2021 0854 IMPRESSION: Oblique fracture line visible within the distal fourth metatarsal bone with diffuse edema and enhancement of nearly the entire fourth metatarsal bone with soft tissue swelling. Diffe rential diagnosis includes osteomyelitis and stress fracture. Brandy elate clinically. No drainable abscess. No other fractures or other a reas of abnormal enhancement to suggest osteomyelitis either. Impression By: [email or web address] - Julius Escalante M.D. Free Text Obj Notes Free Text Obj Notes: Left foot-patient has swelling around the left a nkle extending into the left lower leg. She also swelling on the dorsum of th e left foot most specifically on the lateral aspect. She has a open wo und with an eschar nondraining that is 1 x 3 inches along the lateral aspect of the lef t foot over the mid fifth metatarsal, she also has a 2 x 1 cm open lesion with a eschar nondraining mid third metatarsal shaft on the dorsum of the foot . There is no surrounding cellulitis but there is edema. Pulses intact neg ative sensory deficit Diagnosis, Assessment Plan Problem List/A P: 1. Diabetic foot ulcer 2. Sepsis 3. Uncontrolled hypertension Consultants: podiatry Free Text DxA P Notes Free text DxA P notes: 1. sepsis suspect due to diabetic foot ulcer blood cultures empiric abx 2. diabetic foot ulcer, left podiatry consult MRI foot noted, concerning for possible osteomye litis vs stress fracture arterial/doppler of LLE pending abx wound care 3. DM2 continue insulin 70/30 SSI, accuchecks HgA1c 13.0 4. HTN resume home meds 5. DVT prophylaxis Quality: Gen Med Crit Care VTE Prophylaxis VTE prophylaxis initiated: yes (Lovenox) Current Medications Current medication review: I attest that the foregoing medication list in t he medical record is true, accurate, and complete to the best of my knowled ge. Advanced Care Plan 65 or Older Discussed with: patient Discussion included: code status (full code) Electronically Signed by Siddharth Heaton NP on 12/11 at 1124 at 0916 RPT #:[id number] END OF REPORT 2021-12-21 07:05:00-00:00 [facility] ([facility]) Pharmacy Prog.Note-Vancomycin REPORT#:[id number] REPORT STATUS: Signed DATE:12/21/21 TIME: 704 PATIENT: GLENNA HUBBARD UNIT #: [id number] ROOM/BED: [address] : 78 AGE: 41 SEX: F ATTEND: Sofía Heaton NP ADM AUTHOR: Caden Hurst [facility] * ALL edits or amendments must be made on the [employer]computer document * Vancomycin Vancomycin Medication Therapy Goal: trough 10-15 mcg/mL Indication for treatment: DFI Current therapy: vancomycin 1250 mg IV q12h Weight: Actual weight (kg): 95 VS and I/O: Vital Signs Date Temp Pulse Resp B/P B/P Mean Pulse Ox FiO2 12/18-12/21 97.3-98.6 83-95 14-20 109-166/75-100 87.5-120.5 95-99 72 hours ending at 0700 12/21 0712/20 1900 12/20 0712/19 1900 12/18 07 1900 Intake 500.00 Total Output Total Balance 500.00 Intake, IV 500.00 Number 1 Voids Patient 95 kg Weight Weight Standing scale Measuremen t Method 72 Hour I O Total 12/21 0712/19 0700 Intake Total 500.00 Output Total Balance 500.00 Labs: Laboratory Tests: 12/20 1455 Toxicology Random Vancomycin (5.0 - 45.0 UG/ML) 8.3 Microbiology: 12/18 1642 NASAL: MRSA Screen - COMP 12/18 0747 BLOOD: Blood Culture - RES Treatment plan: consult, initiation of therapy Regimen: Pharmacy consulted to dose vancomycin empiricall y to goal trough 10-15 mcg/ml for DFI. Pt has been on vancomycin at 1250 mg IV q12h. Trough yesterday resulted at 8.3 mcg/ml, which is below goal. Inc vanc to 1000 mg IV q8h. Pharmacy will continue to follow. at 0706 RPT #:[id number] END OF REPORT 2021-12-20 16:29:00-00:00 [facility] ([facility]) Podiatry Progress Note REPORT#:[id number] REPORT STATUS: Signed DATE:12/20/21 TIME: 1629 PATIENT: GLENNA HUBBARD UNIT #: [id number] ROOM/BED: [place] [address] : 78 AGE: 41 SEX: F ATTEND: Sofía Heaton BLOCK MAKING MACHINE OPERATOR ADM AUTHOR: Grant Laguna DPM * ALL edits or amendments must be made on the [employer]computer document * Subjective HPI: 41 yo female was seen for ulcer on left foot. Objective General VS: Last Documented: Result Date Time Pulse Ox 99 12/20 1531 B/P 140/94 12/20 1531 B/P Mean 109.1 12/20 1531 O2 Delivery Room air 12/20 1531 Temp 98.1 12/20 1531 Pulse 92 12/20 1531 Resp 18 12/20 1531 PATIENT WEIGHT: Weight (lb): 209 Weight (oz): 7.03 Weight (kg): 95.000 Medications: Active Meds + DC'd Last 24 Hrs Insulin Lispro Protam/Lispro Human (HumaLOG MIX 75/25) 25 UNITS BID 6A 6P SUBQ Insulin Lispro Protam/Lispro Human (HumaLOG MIX 75/25) 20 UNITS BID 6A 6P SUBQ (DC) Vancomycin HCl (VANCOCIN) 1,250 MG Q12H IV Sodium Chloride (SODIUM CHLORIDE 0.9%) 500 ML Miscellaneous Information (VANCOMYCIN PHARMACY T O DOSE) 1 EACH ASDIR IV (CKD) Ceftriaxone Sodium (ROCEPHIN) 1,000 MG DAILY IV Sodium Chloride (SODIUM CHLORIDE 0.9% PF) 10 ML Lisinopril (lisinopriL) 10 MG DAILY PO Insulin Human Lispro (HUMALOG) S/SCALE HIGH AC HS SUBQ Acetaminophen (TYLENOL EXTRA STRENGTH) 500 MG Q6 H PRN PRN PO Calcium Carbonate (TUMS 500MG) 1,000 MG Q6H PRN PRN PO Dextrose/Water (DEXTROSE 50%-WATER) 50 ML ASDIR PRN IV (CKD) Hydrocodone Bitart/Acetaminophen (NORCO 5/325 TA BLET) 1 TAB Q6H PRN PRN PO Melatonin (MELATONIN) 6 MG BEDTIME PRN PRN PO Simethicone (SIMETHICONE) 80 MG Q6H PRN PRN PO Tramadol HCl (ULTRAM) 50 MG Q6H PRN PRN PO Nutrition assessment: The data set between the solid lines has been im ported from the dietitian's assessment. Any exceptions have been noted under Provider comments. BMI Calculated: 31.8 Nutrition related diagnosis: Nutrition diagnosis details: Nutrition problem: Nutrition etiology: Nutrition signs and symptoms: Nutrition prescription: Dietitian name: Assessment completed: Provider comments on imported dietitian assessme nt: Physical Exam General appearance: alert, awake, oriented Wound/incision: Location: Left foot wound noted with eschar base along lat eral and dorsal foot with erythema noted, no fluctuant , no mal odor, no tracking, no mal odor-erythema is improved Head/Eyes: atraumatic ENT: normal dentition Neck: full range of motion Cardiovascular: normal capillary refill Abdomen: soft, non-tender Genitourinary: not indicated, deferred Extremities: Left moves all, Right moves all LE vascular pulse assess: Palpable L posterior tibialis, Palpable L dorsal is pedis Capillary refill: Capillary refill (in seconds): < 3 seconds Left foot Neuro/COMPLIANCE ASSISTANT: alert, oriented X 3 Results Findings/Data: Laboratory Tests: 12/20 12/20 12/20 12/20 12/20 1533 1455 1127 0754 0612 Chemistry POC Glucose (74 - 106 mg/dL) 228 H 224 H 236 H 265 H Toxicology Random Vancomycin (5.0 - 45.0 UG/ML) 8.3 12/19 12/19 2036 1707 Chemistry POC Glucose (74 - 106 mg/dL) 200 H 292 H Diagnosis, Assessment Plan Free Text A P: 41 yo female was seen for unstageable ulcer with cellulitis left foot Xray left foot No acute abnormality by plain film. Small heel spur. Recommend abx per primary team recommend elvate left lower extremity MRI ordered Awaiting final images for treatment plan. In the interim, recommend abx Thank you for the consultation 12/19/2021 Recommend abx per primary team recommend elvate left lower extremity MRI results pending arterial doppler results pending 12/20/2021 Recommend abx per primary team recommend elvate left lower extremity MRI results pending arterial doppler results pending no significant changes Consultants: podiatry Electronically Signed by Grant Laguna DPM on 12/20 at 2229 RPT #:[id number] END OF REPORT 2021-12-20 11:59:00-00:00 [facility] ([facility]) Hospitalist Progress Note REPORT#:[id number] REPORT STATUS: Signed DATE:12/20/21 TIME: 1159 PATIENT: GLENNA HUBBARD UNIT #: [id number] ROOM/BED: [place] [address] : 78 AGE: 41 SEX: F ATTEND: Sofía Heaton NP ADM AUTHOR: Siddharth Heaton NP * ALL edits or amendments must be made on the [employer]computer document * Subjective Chief complaint: left foot wound/swelling/blisters swelling improved pending mri and dopplers Review of Systems All systems rev neg: except as marked Objective General VS/I O: Vital Signs: Date Time Temp Pulse Resp B/P B/P Pulse O2 O2 F low FiO2 Mean Ox Delivery Rate 12/20 1125 97.9 88 17 166/98 120.5 97 Room air 12/20 0752 97.9 86 17 126/82 97.0 98 Room air 12/20 0518 98.2 87 17 149/97 114.5 97 Room air 12/19 2349 98.1 92 17 130/84 99.6 97 Room air 12/19 1952 97.3 93 17 146/90 108.5 98 Room air 12/19 1521 98.2 95 20 148/100 116.4 98 12/19 1236 98.1 86 18 135/87 102.7 97 PATIENT WEIGHT: Weight (lb): 209 Weight (oz): 7.03 Weight (kg): 95.000 Physical Exam General appearance: alert, awake, oriented Head/Eyes: atraumatic, clear cornea, EOMI, alexis l conjunctiva/sclera, normal eyelids/periorb., normocephalic, PERRL ENT: normal dentition, normal ear left, normal e ar right, normal nose, normal pharynx, normal sinus Neck: full range of motion, non-tender, normal thyroid, supple/no meningismus, no bruit/NL carotids, no JVD, no masses or swell ing Cardiovascular: normal capillary refill, normal heart sounds, regular rate rhythm, no ectopy, no gallop, no heave, no murmu r, no rub, no thrill Respiratory: aerating well, clear to auscultatio n, symmetric expansion, no distress Abdomen: non-tender, normal bowel sounds , soft, no distention, no guarding, no hernia, no mass/organomegaly, no rebound Extremities: moves all, normal capillary refill, normal range of motion Musculoskeletal: normal inspection, painless ran ge of motion Neuro/COMPLIANCE ASSISTANT: alert, oriented X 3, CNII-XII intact, normal speech, reflexes equal bilat, no motor deficits, no sensory deficits Skin: dry, intact Lymphatics: axilla normal, inguinal normal, neck normal, no lymphadenopathy Psychiatry: normal affect, n ormal judgment/insight, normal mood, not homicidal, not suicidal Results Findings/Data: Laboratory Tests 12/20 12/20 12/19 12/19 0754 0612 2036 1707 Chemistry POC Glucose (74 - 106 mg/dL) 236 H 265 H 200 H 292 H Free Text Obj Notes Free Text Obj Notes: Left foot-patient has swelling around the left a nkle extending into the left lower leg. She also swelling on the dorsum of th e left foot most specifically on the lateral aspect. She has a open wo und with an eschar nondraining that is 1 x 3 inches along the lateral aspect of the lef t foot over the mid fifth metatarsal, she also has a 2 x 1 cm open lesion with a eschar nondraining mid third metatarsal shaft on the dorsum of the foot . There is no surrounding cellulitis but there is edema. Pulses intact neg ative sensory deficit Diagnosis, Assessment Plan Problem List/A P: 1. Diabetic foot ulcer 2. Sepsis 3. Uncontrolled hypertension Consultants: podiatry Free Text DxA P Notes Free text DxA P notes: 1. sepsis suspect due to diabetic foot ulcer blood cultures empiric abx 2. diabetic foot ulcer, left podiatry consult MRI foot pending arterial/doppler of LLE pending abx wound care 3. DM2 continue insulin 70/30 SSI, accuchecks HgA1c 13.0 4. HTN resume home meds 5. DVT prophylaxis Quality: Gen Med Crit Care VTE Prophylaxis VTE prophylaxis initiated: yes (Lovenox) Current Medications Current medication review: I attest that the foregoing medication list in t he medical record is true, accurate, and complete to the best of my knowled ge. Advanced Care Plan 65 or Older Discussed with: patient Discussion included: code status (full code) Electronically Signed by Siddharth Heaton NP on 11/22 12/11 at 1201 at 220 RPT #:[id number] END OF REPORT 2021-12-19 14:54:00-00:00 [facility] ([facility]) Podiatry Progress Note REPORT#:[id number] REPORT STATUS: Signed DATE:12/19/21 TIME: 1454 PATIENT: GLENNA HUBBARD UNIT #: [id number] [facility] AGE: 41 SEX: F ATTEND: Amelia Herr MD ADM AUTHOR: Grant Laguna DPM * ALL edits or amendments must be made on the el [employer]computer document * Subjective HPI: 41 yo female was seen for ulcer on left foot. Objective General VS: Last Documented: Result Date Time Pulse Ox 97 12/19 1236 B/P 135/87 12/19 1236 B/P Mean 102.7 12/19 1236 Temp 98.1 12/19 1236 Pulse 86 12/19 1236 Resp 18 12/19 1236 O2 Delivery Room air 12/19 0000 PATIENT WEIGHT: Weight (lb): Weight (oz): Weight (kg): 95.000 Medications: Active Meds + DC'd Last 24 Hrs Insulin Lispro Protam/Lispro Human (HumaLOG MIX 75/25) 20 UNITS BID 6A 6P SUBQ Vancomycin HCl (VANCOCIN) 1,250 MG Q12H IV Sodium Chloride (SODIUM CHLORIDE 0.9%) 500 ML Miscellaneous Information (VANCOMYCIN PHARMACY T O DOSE) 1 EACH ASDIR IV (CKD) Ceftriaxone Sodium (ROCEPHIN) 1,000 MG DAILY IV Sodium Chloride (SODIUM CHLORIDE 0.9% PF) 10 ML Lisinopril (lisinopriL) 10 MG DAILY PO Insulin Human Lispro (HUMALOG) S/SCALE HIGH AC HS SUBQ Acetaminophen (TYLENOL EXTRA STRENGTH) 500 MG Q 6H PRN PRN PO Calcium Carbonate (TUMS 500MG) 1,000 MG Q6H PRN PRN PO Dextrose/Water (DEXTROSE 50%-WATER) 50 ML ASDIR PRN IV (CKD) Hydrocodone Bitart/Acetaminophen (NORCO 5/325 TA BLET) 1 TAB Q6H PRN PRN PO Melatonin (MELATONIN) 6 MG BEDTIME PRN PRN PO Simethicone (SIMETHICONE) 80 MG Q6H PRN PRN PO Tramadol HCl (ULTRAM) 50 MG Q6H PRN PRN PO I O: 24 hour I O ending at 0700: 12/19 0700 12/18 1900 Intake Total 500.00 Output Total Balance 500.00 Intake, IV 500.00 Number Voids 1 Nutrition assessment: The data set between the solid lines has been im ported from the dietitian's assessment. Any exceptions have been noted under Provider comments. BMI Calculated: 31.8 Nutrition related diagnosis: Nutrition diagnosis details: Nutrition problem: Nutrition etiology: Nutrition signs and symptoms: Nutrition prescription: Dietitian name: Assessment completed: Provider comments on imported dietitian assessme nt: Physical Exam General appearance: alert, awake, oriented Wound/incision: Location: Left foot wound noted with eschar base along lat eral and dorsal foot with erythema noted, no fluctuant, no mal odor, no t racking, no mal odor Head/Eyes: atraumatic ENT: normal dentition Neck: full range of motion Cardiovascular: normal capillary refill Abdomen: soft, non-tender Genitourinary: not indicated, deferred Extremities: Left moves all, Right moves all LE vascular pulse assess: Palpable L posterior tibialis, Palpable L dorsal is pedis Capillary refill: Capillary refill (in seconds): < 3 seconds Left foot Neuro/COMPLIANCE ASSISTANT: alert, oriented X 3 Results Findings/Data: Laboratory Tests: 12/19 12/19 12/19 12/19 12/18 1135 0827 0718 0544 2058 Chemistry Sodium (136 - 145 mmol/L) 138 Potassium (3.5 - 5.1 mmol/L) 4.6 Chloride (98 - 107 mmol/L) 107.0 Carbon Dioxide (21 - 32 mmol/L) 27.0 Anion Gap (10 - 20) 8.6 L BUN (7 - 18 mg/dL) 11 Creatinine (0.55 - 1.02 mg/dL) 0.50 L Glomerular Filtr Rate (>=60 mL/min) > 60 BUN/Creatinine Ratio (10 - 20) 22.0 H Glucose (74 - 106 mg/dL) 164 H POC Glucose (74 - 106 mg/dL) 185 H 165 H 152 H 327 H Calcium (8.5 - 10.1 mg/dL) 8.2 L Total Bilirubin (0.0 - 1.0 mg/dL) 0.40 AST (15 - 37 IUnit/L) 35 ALT (12 - 78 IUnit/L) 23 Total Alk Phosphatase (45 - 117 79 IUnit/L) Total Protein (6.4 - 8.2 gram/dL) 6.4 Albumin (3.4 - 5.0 g/dL) 2.8 L Globulin (2.7 - 4.2 gram/dL) 3.6 Albumin/Globulin Ratio (0.75 - 1.50) 0.8 Hematology WBC (4.5 - 12.5 K/mm3) 6.9 RBC (3.7 - 5.2 mill/mm3) 4.56 Hgb (11.5 - 15.5 gram/dL) 13.2 Hct (36.0 - 46.0 %) 40.6 MCV (80 - 98 fL) 89.0 MCH (27.0 - 33.0 picogram) 28.9 MCHC (33.0 - 36.0 gram/dL) 32.5 L RDW (11.6 - 16.2 %) 12.3 RDW Std Deviation (37.0 - 51.0 fL) 40.3 Plt Count (150 - 450 K/mm3) 213 MPV (6.7 - 11.0 fL) 12.0 H Neut % (Auto) (39.0 - 69.0 %) 57.8 Lymph % (Auto) (25.0 - 55.0 %) 30.6 Converse % (Auto) (0.0 - 10.0 %) 8.0 Eos % (Auto) (0.0 - 5.0 %) 2.2 Baso % (Auto) (0.0 - 1.0 %) 0.4 Neut # (Auto) (1.8 - 7.7 K/mm3) 3.98 Lymph # (Auto) (1.0 - 5.0 K/mm3) 2.11 Converse # (Auto) (0 - 0.8 K/mm3) 0.55 Eos # (Auto) (0.0 - 0.5 K/mm3) 0.15 Baso # (Auto) (0.0 - 0.2 K/mm3) 0.03 Add Manual Diff NO Nucleated RBC % (0 - 0 %) 0.0 Nucleated RBCs # (Man) (0.0 - 0.1 0.00 K/mm3) 12/18 1928 Chemistry POC Glucose (74 - 106 mg/dL) 223 H Diagnosis, Assessment Plan Free Text A P: 41 yo female was seen for unstageable ulcer with cellulitis left foot Xray left foot No acute abnormality by plain film. Small heel spur. Recommend abx per primary team recommend elvate left lower extremity MRI ordered Awaiting final images for treatment plan. In the interim, recommend abx Thank you for the consultation 12/19/2021 Recommend abx per primary team recommend elvate left lower extremity MRI results pending arterial doppler results pending Consultants: podiatry Electronically Signed by Grant Laguna DPM on 12/20 at 0745 RPT #:[id number] END OF REPORT 2021-12-19 10:07:00-00:00 [facility] ([facility]) Hospitalist Progress Note REPORT#:[id number] REPORT STATUS: Signed DATE:12/19/21 TIME: 1007 PATIENT: GLENNA HUBBARD UNIT #: [id number] ROOM/BED: [place] [address] : 78 AGE: 41 SEX: F ATTEND: Amelia Herr MD ADM AUTHOR: Siddharth Heaton NP * ALL edits or amendments must be made on the [employer]computer document * Subjective Chief complaint: left foot wound/swelling/blisters Review of Systems All systems rev neg: except as marked Objective General VS/I O: Vital Signs: Date Time Temp Pulse Resp B/P B/P Pulse O2 O2 F low FiO2 Mean Ox Delivery Rate 12/19 1236 98.1 86 18 135/87 102.7 97 12/19 0730 98.1 86 20 150/97 115.1 95 12/19 0436 98.6 83 15 133/87 102.5 97 12/19 0000 98.1 84 16 109/77 87.5 98 Room air 01/29 1531 98.1 87 17 118/78 91.1 98 24 hour I O ending at 0700: 12/19 0700 12/18 1900 Intake Total 500.00 Output Total Balance 500.00 Intake, IV 500.00 Number Voids 1 PATIENT WEIGHT: Weight (lb): Weight (oz): Weight (kg): 95.000 Physical Exam General appearance: alert, awake, oriented Head/Eyes: atraumatic, clear cornea, EOMI, alexis l conjunctiva/sclera, normal eyelids/periorb., normocephalic, PERRL ENT: normal dentition, normal ear left, normal e ar right, normal nose, normal pharynx, normal sinus Neck: full range of motion, non-tender, normal thyroid, supple/no meningismus, no bruit/NL carotids, no JVD, no masses or swell ing Cardiovascular: normal capillary refill, normal heart sounds, regular rate rhythm, no ectopy, no gallop, no heave, no murmu r, no rub, no thrill Respiratory: aerating well, clear to auscultatio n, symmetric expansion, no distress Abdomen: non-tender, normal bowel sounds , soft, no distention, no guarding, no hernia, no mass/organomegaly, no rebound Extremities: moves all, normal capillary refill, normal range of motion Musculoskeletal: normal inspection, painless ran ge of motion Neuro/COMPLIANCE ASSISTANT: alert, oriented X 3, CNII-XII intact, normal speech, reflexes equal bilat, no motor deficits, no sensory deficits Skin: dry, intact Lymphatics: axilla normal, inguinal normal, neck normal, no lymphadenopathy Psychiatry: normal affect, n ormal judgment/insight, normal mood, not homicidal, not suicidal Results Findings/Data: Laboratory Tests 12/19 12/19 12/19 12/19 12/18 1135 0827 0718 0544 2058 Chemistry Sodium (136 - 145 mmol/L) 138 Potassium (3.5 - 5.1 mmol/L) 4.6 Chloride (98 - 107 mmol/L) 107.0 Carbon Dioxide (21 - 32 mmol/L) 27.0 Anion Gap (10 - 20) 8.6 L BUN (7 - 18 mg/dL) 11 Creatinine (0.55 - 1.02 mg/dL) 0.50 L Glomerular Filtr Rate (>=60 mL/min) > 60 BUN/Creatinine Ratio (10 - 20) 22.0 H Glucose (74 - 106 mg/dL) 164 H POC Glucose (74 - 106 mg/dL) 185 H 165 H 152 H 327 H Calcium (8.5 - 10.1 mg/dL) 8.2 L Total Bilirubin (0.0 - 1.0 mg/dL) 0.40 AST (15 - 37 IUnit/L) 35 ALT (12 - 78 IUnit/L) 23 Total Alk Phosphatase (45 - 117 IUnit/L) 79 Total Protein (6.4 - 8.2 gram/dL) 6.4 Albumin (3.4 - 5.0 g/dL) 2.8 L Globulin (2.7 - 4.2 gram/dL) 3.6 Albumin/Globulin Ratio (0.75 - 1.50) 0.8 12/18 1929 Chemistry POC Glucose (74 - 106 mg/dL) 223 H Laboratory Tests 12/19 0827 Hematology WBC (4.5 - 12.5 K/mm3) 6.9 RBC (3.7 - 5.2 mill/mm3) 4.56 Hgb (11.5 - 15.5 gram/dL) 13.2 Hct (36.0 - 46.0 %) 40.6 MCV (80 - 98 fL) 89.0 MCH (27.0 - 33.0 picogram) 28.9 MCHC (33.0 - 36.0 gram/dL) 32.5 L RDW (11.6 - 16.2 %) 12.3 RDW Std Deviation (37.0 - 51.0 fL) 40.3 Plt Count (150 - 450 K/mm3) 213 MPV (6.7 - 11.0 fL) 12.0 H Neut % (Auto) (39.0 - 69.0 %) 57.8 Lymph % (Auto) (25.0 - 55.0 %) 30.6 Converse % (Auto) (0.0 - 10.0 %) 8.0 Eos % (Auto) (0.0 - 5.0 %) 2.2 Baso % (Auto) (0.0 - 1.0 %) 0.4 Neut # (Auto) (1.8 - 7.7 K/mm3) 3.98 Lymph # (Auto) (1.0 - 5.0 K/mm3) 2.11 Converse # (Auto) (0 - 0.8 K/mm3) 0.55 Eos # (Auto) (0.0 - 0.5 K/mm3) 0.15 Baso # (Auto) (0.0 - 0.2 K/mm3) 0.03 Add Manual Diff NO Nucleated RBC % (0 - 0 %) 0.0 Nucleated RBCs # (Man) (0.0 - 0.1 K/mm3) 0.00 Free Text Obj Notes Free Text Obj Notes: Left foot-patient has swelling around the left a nkle extending into the left lower leg. She also swelling on the dorsum of th e left foot most specifically on the lateral aspect. She has a open wo und with an eschar nondraining that is 1 x 3 inches along the lateral aspect of the lef t foot over the mid fifth metatarsal, she also has a 2 x 1 cm open lesion with a eschar nondraining mid third metatarsal shaft on the dorsum of the foot . There is no surrounding cellulitis but there is edema. Pulses intact neg ative sensory deficit Diagnosis, Assessment Plan Problem List/A P: 1. Diabetic foot ulcer 2. Sepsis 3. Uncontrolled hypertension Consultants: podiatry Free Text DxA P Notes Free text DxA P notes: 1. sepsis suspect due to diabetic foot ulcer blood cultures empiric abx 2. diabetic foot ulcer, left podiatry consult MRI foot arterial/doppler of LLE abx wound care 3. DM2 continue insulin 70/30 SSI, accuchecks HgA1c 13.0 4. HTN resume home meds 5. DVT prophylaxis Quality: Gen Med Crit Care VTE Prophylaxis VTE prophylaxis initiated: yes (Lovenox) Current Medications Current medication review: I attest that the foregoing medication list in t he medical record is true, accurate, and complete to the best of my knowled ge. Advanced Care Plan 65 or Older Discussed with: patient Discussion included: code status (full code) Electronically Signed by Siddharth Heaton NP on 11/22 at 1312 at 0599 RPT #:[id number] END OF REPORT 2021-12-18 15:06:00-00:00 [facility]) Pharmacy Prog.Note-Vancomycin REPORT#:[id number] REPORT STATUS: Signed DATE:12/18/21 TIME: 1506 PATIENT: GLENNA HUBBARD UNIT #: [id number] ROOM[place]BED: [place] [address] : 78 AGE: 41 SEX: F ATTEND: Amelia Herr MD ADM AUTHOR: Enmanuel Tarango [facility] * ALL edits or amendments must be made on the [employer] document * Vancomycin Vancomycin Medication Therapy Goal: trough 10-15 mcg/mL Treatment plan: consult Regimen: INDICATION: DFU L FT VIT: AFEB, VSS WBC: 8.4 SCr 0.8 CX: AWAIT BCX UCX IMAGE: XR REVIEWED, AWAIT MRI START 1.25G Q12H Electronically Signed by Enmanuel Tarango [facility] on 2 at 1506 RPT #:[id number] END OF REPORT 2021-12-18 13:49:00-00:00 [facility]) Podiatry Consult Note REPORT#:[id number] REPORT STATUS: Signed DATE:12/18/21 TIME: 1349 PATIENT: GLENNA HUBBARD UNIT #: [id number] ROOM/BED: [place] [address] : [birth year] AGE: 41 SEX: F ATTEND: Amelia Herr MD ADM AUTHOR: Grant Laguna DPM * ALL edits or amendments must be made on the [employer] document * History of Present Illness Requesting clinician: Mica FERRER Reason for consult: diabetic wound Free Text HPI Notes Free Text HPI Notes: 41 yo female PMH of with typ e 1 diabetes. Patient reports she was in [place] and rub alove leave it on her et and within 30 minutes her left foot dorsum blistered up. She was seen by a doctor in [place] on the and was prescribed dexamethasone and abx. Pt reports the wound is not getting better. She was seen by the core inspector and was recommend ed to go to ED for further evalutation for possible osteomyelitis. History - Adult longitudinal Past medical history: Reports: Diabetes mellitus, Hypertension. Additional medical history: history of obesity BMI 31.8, insulin-dependent d iabetes on insulin 70/30 10 units twice daily, Metformin 1000 mg twice elizabeth y and glipizide, hypertension previously on lisinopril which was discontinued Additional surgical history: Cholecystectomy, x4, right fifth toe a mputation 2019, umbilical incisional hernia repair, bilateral tubal ligat ion, right oophorectomy from recurrent ovarian cysts Additional family history: Mother at age 71 had diabetes end-st age renal disease Father at age 70 of congestive heart failu re Alcohol use: Denies EtOH use Drug use: Denies recreational drugs Smoking status: Smoking status for patients 13 years old or old er: Never Smoker Additional social history: Resides at home with her and family ambu lates independently independent of all ADLs Allergies: Coded Allergies: No Known Allergies (12/17/21) Review of Systems Constitutional: Denies: chills, fatigue, fever, generalized weak ness, lethargy. Cardiovascular: Denies: chest pain, SCHMID (dyspnea on exertion). Objective General VS: Last Documented: Result Date Time Pulse Ox 96 12/18 1123 B/P 129/80 12/18 1123 B/P Mean 96.4 12/18 1123 Temp 98.1 12/18 1123 Pulse 85 12/18 1123 Resp 14 12/18 1123 O2 Delivery Room air 12/17 2003 PATIENT WEIGHT: Weight (lb): Weight (oz): Weight (kg): 95.000 Medications: Active Meds + DC'd Last 24 Hrs Insulin Lispro Protam/Lispro Human (HumaLOG MIX 75/25) 20 UNITS BID 6A 6P SUBQ Miscellaneous Information (VANCOMYCIN PHARMACY T O DOSE) 1 EACH ASDIR IV (CKD) Ceftriaxone Sodium (ROCEPHIN) 1,000 MG DAILY IV Sodium Chloride (SODIUM CHLORIDE 0.9% PF) 10 ML Lisinopril (lisinopriL) 10 MG DAILY PO Insulin Human Lispro (HUMALOG) S/SCALE HIGH AC HS SUBQ Insulin Lispro Protam/Lispro Human (HumaLOG MIX 75/25) 10 UNITS BID 6A 6P SUBQ (DC) Potassium Chloride (K-DUR) 20 MEQ ONCE ONE PO (D C) Acetaminophen (TYLENOL EXTRA STRENGTH) 500 MG Q6 H PRN PRN PO Calcium Carbonate (TUMS 500MG) 1,000 MG Q6H PRN PRN PO Dextrose/Water (DEXTROSE 50%-WATER) 50 ML ASDIR PRN IV (CKD) Hydrocodone Bitart/Acetaminophen (NORCO 5/325 TA BLET) 1 TAB Q6H PRN PRN PO Melatonin (MELATONIN) 6 MG BEDTIME PRN PRN PO Simethicone (SIMETHICONE) 80 MG Q6H PRN PRN PO Tramadol HCl (ULTRAM) 50 MG Q6H PRN PRN PO Sodium Chloride (SODIUM CHLORIDE 0.9%) 1,000 ML .Q10H IV (DC) Ceftriaxone Sodium (ROCEPHIN) 1,000 MG X1ED STA IV (DC) Sodium Chloride (SODIUM CHLORIDE 0.9% PF) 10 ML Ceftriaxone Sodium (ROCEPHIN) 1,000 MG X1ED STA IV (DC) Sodium Chloride (SODIUM CHLORIDE 0.9% PF) 10 ML Sodium Chloride (SODIUM CHLORIDE 0.9%) 2,850 ML X1ED STA IV (DC) Vancomycin HCl (VANCOMYCIN HCL) 1,[address] A IV (DC) Sodium Chloride (SODIUM CHLORIDE 0.9%) 250 ML I O: 24 hour I O ending at 0700: 12/18 0700 12/17 1900 Intake Total Output Total Balance Patient 95 kg Weight Weight Standing scale Measurement Method Nutrition assessment: The data set between the solid lines has been im ported from the dietitian's assessment. Any exceptions have been noted under Provider comments. BMI Calculated: 31.8 Nutrition related diagnosis: Nutrition diagnosis details: Nutrition problem: Nutrition etiology: Nutrition signs and symptoms: Nutrition prescription: Dietitian name: Assessment completed: Provider comments on imported dietitian assessme nt: Physical Exam General appearance: alert, awake, oriented Wound/incision: Location: Left foot wound noted with eschar base along lat eral and dorsal foot with erythema noted, no fluctuant, no mal odor, no tr acking, no mal odor Head/Eyes: atraumatic ENT: normal dentition Neck: full range of motion Cardiovascular: normal capillary refill Abdomen: soft, non-tender Genitourinary: not indicated, deferred Extremities: Left moves all, Right moves all LE vascular pulse assess: Palpable L posterior tibialis, Palpable L dorsal is pedis Capillary refill: Capillary refill (in seconds): < 3 seconds Left foot Edema: pitting Left foot Neuro/COMPLIANCE ASSISTANT: alert, oriented X 3 Results Findings/Data: Laboratory Tests: 12/18 12/18 12/18 12/18 12/18 1103 0740 0647 0259 0259 Chemistry POC Glucose (74 - 106 mg/dL) 170 H 255 H 257 H Hemoglobin A1c (% HbA1) 13.0 Estim Average Glucose (MG/DL) 326 Triglycerides (20 - 150 mg/dL) 145 Cholesterol (0 - 200 mg/dL) 156 LDL Cholesterol Measurd (100 - 129 106 mg/dL) HDL Cholesterol (40 - 60 mg/dL) 52 Cholesterol/HDL Ratio (0 - 4.9 RATIO) 3.0 TSH (0.36 - 3.74 uIU/mL) 0.669 12/18 12/17 12/17 0053 4 2114 Chemistry Sodium (136 - 145 mmol/L) 136 Potassium (3.5 - 5.1 mmol/L) 3.4 L Chloride (98 - 107 mmol/L) 103.0 Carbon Dioxide (21 - 32 mmol/L) 27.0 Anion Gap (10 - 20) 9.4 L BUN (7 - 18 mg/dL) 15 Creatinine (0.55 - 1.02 mg/dL) 0.80 Glomerular Filtr Rate (>=60 mL/min) > 60 BUN/Creatinine Ratio (10 - 20) 19.0 Glucose (74 - 106 mg/dL) 320 H Lactic Acid (0.4 - 1.9 mmol/L) 0.8 Calcium (8.5 - 10.1 mg/dL) 9.2 Total Bilirubin (0.0 - 1.0 mg/dL) 0.40 Direct Bilirubin (0.0 - 0.20 mg/dL) 0.10 AST (15 - 37 IUnit/L) 19 ALT (12 - 78 IUnit/L) 23 Total Alk Phosphatase (45 - 117 IUnit/L) 160 H Troponin I (0 - 45 pg/mL) <4.0 Total Protein (6.4 - 8.2 gram/dL) 8.0 Albumin (3.4 - 5.0 g/dL) 3.7 Globulin (2.7 - 4.2 gram/dL) 4.3 H Albumin/Globulin Ratio (0.75 - 1.50) 0.9 Hematology WBC (4.5 - 12.5 K/mm3) 8.4 RBC (3.7 - 5.2 mill/mm3) 4.96 Hgb (11.5 - 15.5 gram/dL) 14.4 Hct (36.0 - 46.0 %) 43.2 MCV (80 - 98 fL) 87.1 MCH (27.0 - 33.0 picogram) 29.0 MCHC (33.0 - 36.0 gram/dL) 33.3 RDW (11.6 - 16.2 %) 12.4 RDW Std Deviation (37.0 - 51.0 fL) 39.1 Plt Count (150 - 450 K/mm3) 237 MPV (6.7 - 11.0 fL) 12.2 H Neut % (Auto) (39.0 - 69.0 %) 54.7 Lymph % (Auto) (25.0 - 55.0 %) 34.1 Converse % (Auto) (0.0 - 10.0 %) 7.9 Eos % (Auto) (0.0 - 5.0 %) 2.0 Baso % (Auto) (0.0 - 1.0 %) 0.5 Neut # (Auto) (1.8 - 7.7 K/mm3) 4.59 Lymph # (Auto) (1.0 - 5.0 K/mm3) 2.86 Converse # (Auto) (0 - 0.8 K/mm3) 0.66 Eos # (Auto) (0.0 - 0.5 K/mm3) 0.17 Baso # (Auto) (0.0 - 0.2 K/mm3) 0.04 Add Manual Diff NO Nucleated RBC % (0 - 0 %) 0.0 Nucleated RBCs # (Man) (0.0 - 0.1 K/mm3) 0.00 Serology SARS-CoV-2 Ag (Rapid) (NEGATIVE) NEGATIVE Urines Urine Color (YELLOW) Light-Yellow Urine Appearance (CLEAR) CLEAR Urine pH (5.0 - 8.0) 5.5 Ur Specific [place] (1.001 - 1.035) 1.044 Urine Protein (NEGATIVE mg/dL) NEGATIVE Urine Glucose (UA) (NEGATIVE mg/dL) >1000 (4+) Urine Ketones (NEGATIVE mg/dL) NEGATIVE Urine Blood (NEGATIVE mg/dL) Negative Urine Nitrite (NEGATIVE) NEGATIVE Urine Bilirubin (NEGATIVE mg/dL) NEGATIVE Urine Urobilinogen (NEGATIVE mg/dL) Normal Ur Leukocyte Esterase (NEGATIVE Lisette/uL) NEGATI VE Urine RBC (0 - 5 #/HPF) 0-2 Urine WBC (0 - 5 per HPF) 0-5 Ur Epithelial Cells (FEW per HPF) FEW Urine Bacteria (NONE #/HPF) FEW H Recent Impressions: RADIOLOGY - XR CHEST 1 V 12/17 2039 Report Impression - Status: SIGNED Entered: 12/17/20212109 IMPRESSION: 1. Bilateral pulmonary scarring. 2. No evidence of acute cardiothoracic abnormali ties. Location code: Impression By: Shaka Duarte M.D. RADIOLOGY - XR FOOT 3 + V LT 12/17 2129 Report Impression - Status: SIGNED Entered: 12/17/20212206 IMPRESSION: No acute abnormality by plain film. Small heel s pur. Impression By: Esteban Mcelroy M.D. Diagnosis, Assessment Plan Free Text A P: 41 yo female was seen for unstageable ulcer with cellulitis Xray left foot No acute abnormality by plain film. Small heel spur. Recommend abx per primary team recommend elvate left lower extremity MRI ordered Awaiting final images for treatment plan. In the interim, recommend abx Thank you for the consultation Consultants: podiatry Electronically Signed by Grant Laguna DPM on 12/18 at 2314 RPT #:[id number] END OF REPORT 2021-12-18 13:34:00-00:00 [facility] ([facility]) Hospitalist Progress Note REPORT#:[id number] REPORT STATUS: Signed DATE:12/18/21 TIME: 1334 PATIENT: GLENNA HUBBARD UNIT #: [id number] ROOM/BED: [place] [address] : 78 AGE: 41 SEX: F ATTEND: Amelia Herr MD ADM AUTHOR: Siddharth Heaton NP * ALL edits or amendments must be made on the [employer]computer document * Subjective Chief complaint: left foot wound/swelling/blisters Review of Systems All systems rev neg: except as marked Objective General VS/I O: Vital Signs: Date Time Temp Pulse Resp B/P B/P Pulse O2 O2 F low FiO2 Mean Ox Delivery Rate 12/18 1123 98.1 85 14 129/80 96.4 96 12/18 0738 97.9 88 16 141/87 105.3 97 12/18 0615 97 12/18 0528 98.2 88 18 153/90 110.8 97 12/18 0301 97.9 89 16 145/87 106.8 98 12/17 2004 97.7 100 18 149/101 117 99 Room air 24 hour I O ending at 0700: 12/18 0700 12/17 1900 Intake Total Output Total Balance Patient 95 kg Weight Weight Standing scale Measurement Method PATIENT WEIGHT: Weight (lb): Weight (oz): Weight (kg): 95.000 Physical Exam General appearance: alert, awake, oriented Head/Eyes: atraumatic, clear cornea, EOMI, alexis l conjunctiva/sclera, normal eyelids/periorb., normocephalic, PERRL ENT: normal dentition, normal ear left, normal e ar right, normal nose, normal pharynx, normal sinus Neck: full range of motion, non-tender, normal thyroid, supple/no meningismus, no bruit/NL carotids, no JVD, no masses or swell ing Cardiovascular: normal capillary refill, normal heart sounds, regular rate rhythm, no ectopy, no gallop, no heave, no murmu r, no rub, no thrill Respiratory: aerating well, clear to auscultatio n, symmetric expansion, no distress Abdomen: non-tender, normal bowel sounds , soft, no distention, no guarding, no hernia, no mass/organomegaly, no rebound Extremities: moves all, normal capillary refill, normal range of motion Musculoskeletal: normal inspection, painless ran ge of motion Neuro/COMPLIANCE ASSISTANT: alert, oriented X 3, CNII-XII intact, normal speech, reflexes equal bilat, no motor deficits, no sensory deficits Skin: dry, intact Lymphatics: axilla normal, inguinal normal, neck normal, no lymphadenopathy Psychiatry: normal affect, n ormal judgment/insight, normal mood, not homicidal, not suicidal Free Text Obj Notes Free Text Obj Notes: Left foot-patient has swelling around the left a nkle extending into the left lower leg. She also swelling on the dorsum of th e left foot most specifically on the lateral aspect. She has a open wo und with an eschar nondraining that is 1 x 3 inches along the lateral aspect of the lef t foot over the mid fifth metatarsal, she also has a 2 x 1 cm open lesion with a eschar nondraining mid third metatarsal shaft on the dorsum of the foot . There is no surrounding cellulitis but there is edema. Pulses intact neg ative sensory deficit Diagnosis, Assessment Plan Problem List/A P: 1. Diabetic foot ulcer 2. Sepsis 3. Uncontrolled hypertension Consultants: podiatry Free Text DxA P Notes Free text DxA P notes: 1. sepsis suspect due to diabetic foot ulcer blood cultures empiric abx 2. diabetic foot ulcer, left podiatry consult MRI foot arterial/doppler of LLE abx wound care 3. DM2 continue insulin 70/30 SSI, accuchecks HgA1c 13.0 4. HTN resume home meds 5. DVT prophylaxis Quality: Gen Med Crit Care VTE Prophylaxis VTE prophylaxis initiated: yes (Lovenox) Current Medications Current medication review: I attest that the foregoing medication list in t he medical record is true, accurate, and complete to the best of my knowled ge. Advanced Care Plan 65 or Older Discussed with: patient Discussion included: code status (full code) Electronically Signed by Siddharth Heaton NP on 11/21 08/11 at 1341 at 5735 RPT #:[id number] END OF REPORT 2021-12-18 01:25:00-00:00 [facility] ([facility]) Hospitalist History Physical REPORT#:[id number] REPORT STATUS: Signed DATE:12/18/21 TIME: 124 PATIENT: GLENNA HUBBARD UNIT #: [id number] ROOM[facility]BED: [facility] : 78 AGE: 41 SEX: F ATTEND: Amelia Herr MD ADM AUTHOR: Amelia Herr MD * ALL edits or amendments must be made on the [employer]computer document * History of Present Illness HPI Chief complaint: Left foot wound since November 17, 2021 PCP: PCP: Benjamin Ramirez MD HPI: Patient is a 41-year-old fem colleen with no known PCP. She has a history of obesity BMI 31.8, insulin-dependent diabetes on insulin 70/30 10 units twice daily, Metformin 1000 mg twice daily and glipizide, hyp ertension previously on lisinopril which was discont inued. Patient on November 17, 2012 when she was in [place] at her jigmxe-sv-jad's house when she miki t out back and there was aloe plant and she decided to rub it on her feet and within 30 minutes her left foot dorsum blistered up and it s tarted swelling the next day so she went on the to a doctor in [place] and he wrote her a prescription for dexamethasone 8 mg IM x1 Rocephin 1 g IV M x1 daily which she injected herself for 10 days and Levaquin 500 mg p.o. daily for 10 days. She comp leted this on 04 December and her left foot continues to s well.She has a open wound with an eschar nondraining that is 1 x 3 inches along the lateral aspect of the left foot over the mid fifth metatarsal, she also h as a 2 x 1 cm open lesion with a eschar nondraining mid third metatarsal shaft on the dorsum of the foot. There is no surrounding cellulitis but there is edema. She had no other treatment and saw the core inspector Monday morning Luis A patel and he referred her to the emergency room. She got the Covid vaccine 2 injections but she a ctually had Covid June 2020 was hospitalized at [facility] for 3 weeks. She denied any fevers or chills no cough or congestio n no chest pain no shortness of breath and no nausea vomiting or diarrhea review of systems was otherwise negative. She presented to the emergency room at 8 PM ER evaluation she was afebrile pulse 100 blood pressure 149/101 pulse ox 99%. Covid antigen was negative CBC was normal, urinalysis was negative, electrolytes es sentially normal potassium 3.4 which I replaced. Renal functions normal GFR greater tyrese n 60 glucose 320 LFTs are normal except alk phos 160 and troponin is negat jonathan. Code sepsis called by ER patient was given Rocephin and vancomycin and pereira d blood cultures x2 urine culture sent. Patient will get MRI of th e foot and podiatry has been consulted continue Rocephin 1 g IV daily. X-ray of the foot was negative chest x-ray was negative. Review of systems otherwise negative Informant/historian: patient History Past Medical Surgical Hx Patient History: 1. Uncontrolled hypertension 2. Sepsis 3. Diabetic foot ulcer Additional medical history: history of obesity BMI 31.8, insulin-dependent d iabetes on insulin 70/30 10 units twice daily, Metformin 1000 mg twice daily and glipizide, hypertension previously on lisinopril which was discontinued Additional surgical history: Cholecystectomy, x4, right fifth toe a mputation 2019, umbilical incisional hernia repair, bilateral tubal ligati on, right oophorectomy from recurrent ovarian cysts Family History Additional family history: Mother at age 71 had diabetes end-stage renal disease Father at age 70 of congestive heart failure Social History Alcohol use: Denies EtOH use Drug use: Denies recreational drugs Smoking status: Smoking status for patients 13 years old or old er: Never Smoker Additional social history: Resides at home with her hus band and family ambulates independently independent of all ADLs Medication/Allergy-Vaccine Hx Allergies: Coded Allergies: No Known Allergies (12/17/21) Review of Systems Constitutional: Denies: chills, fatigue, fev er, generalized weakness, lethargy, malaise, recent wt loss, other. Skin: Reports: swelling (left foot and ankle), other ( left foot 2 wounds). Denies: abrasion, bruising, contusion, diaphoresis, ecch ymosis, itching, laceration, rash. Allergy/Immun: Denies: allergic reaction, anaphylaxis, hives, i tching, rhinorrhea, sneezing, other. Eyes: Denies: redness, discharge, visual loss/blurred, itching, diplopia, eye pain, photophobia, swelling, other. ENT: Denies: ear drainage, ear ringing, earache, hear ing loss, mouth pain, nasal congestion, nose bleeding, sinus problem, sore t hroat, throat pain, throat swelling, tongue pain, tongue swelling, toothach e, voice change, other. Respiratory: Denies: SCHMID (dyspnea on exertion), hemoptysis, n on productive cough, parox nocturnal dyspnea, pleurisy, pleuritic pain, pneumonia, productive cough (sputum ), SOB, wheezing, other. Cardiovascular: Denies: chest pain, SCHMID (dyspnea on exer tion), edema, orthopnea, palpitations, parox nocturnal dyspnea, other. GI: Denies: abdominal pain, anorexia, constipation, diarrhea, dysphagia, GERD, hematemesis, hematochezia, h iatal hernia, melena, nausea, rectal pain, vomiting, other. : Denies: dysuria, flank pain, frequency, hematuri a, nocturia, pelvic pain, , urgency, urinary retention, vaginal bl eeding, vaginal discharge, other. Musculoskeletal: Reports: extremity swelling (left foot), joint s welling (left ankle). Denies: arthritis, extremity pain, joint pain, lumbar pa in, myalgias, neck pain, thoracic pain, other. Neuro: Denies: bladder dysfunction, bowel dysfunction, change in LOC, confusion, dizziness, focal weakness, gait problem, headach e, lightheaded, numbness, seizure, slurred speech, spinning sensation, syn cope, unable to speak, vision change, weakness, other. Psych: Denies: agitation, anxiety, auditory hallucinati on, change in mental status, confusion, delusional, depre ssion, homicidal ideation, hostile, insomnia, stress , suicidal ideation, visual hallucination, other . All systems rev neg: except as noted Physical Exam VS/I O: Vital Signs Date Temp Pulse Resp B/P B/P Mean Pulse Ox FiO2 01/28 97.7 100 18 149/101 117 99 Last Documented: Result Date Time Pulse Ox 99 12/17 2003 B/P 149/101 12/17 2003 B/P Mean 117 12/17 2003 O2 Delivery Room air 12/17 2003 Temp 97.7 12/17 2003 Pulse 100 12/17 2003 Resp 18 12/17 2003 24 hour I O ending at 0700: 12/18 0700 12/17 1900 Intake Total Output Total Balance Patient 95 kg Weight Weight Standing scale Measurement Method Patient Weight and BMI Weight (kg): 95.000 BMI: 31.8 General appearance: obese, alert, awake, oriente d, pleasant, conversational, mental status normal, no respiratory distress Head/Eyes: atraumatic, clear cornea, EOMI, alexis l conjunctiva/sclera, normal eyelids/periorb., normocephalic, PERRL ENT: normal dentition, normal ear left, normal e ar right, normal nose, normal pharynx, normal sinus Neck: full range of motion, non-tender, normal thyroid, supple/no meningismus, no bruit/NL carotids, no JVD, no masses or swell ing Cardiovascular: normal capillary refill, normal heart sounds, regular rate rhythm, no ectopy, no gallop, no heave, no murmu r, no rub, no thrill Respiratory: aerating well, clear to auscultatio n, symmetric expansion, no distress Abdomen: non-tender, normal bowel sounds , soft, no distention, no guarding, no hernia, no mass/organomegaly, no rebound Abdomen quadrants: LLQ normal bowel sounds, LUQ normal elvira l sounds, RLQ normal bowel sounds, RUQ normal bowel sounds Extremities: moves all, normal capillary refill, normal range of motion Musculoskeletal: normal inspection, painless ran ge of motion Neuro/COMPLIANCE ASSISTANT: alert, oriented X 3, CNII-XII intact, normal speech, reflexes equal bilat, no motor deficits, no sensory deficits Lymphatics: axilla normal, inguinal normal, neck normal, no lymphadenopathy Psychiatry: normal affect, n ormal judgment/insight, normal mood, not homicidal, not suicidal Results Findings/Data: Laboratory Tests: 12/18 12/17 12/17 0053 4 2114 Chemistry Sodium (136 - 145 mmol/L) 136 Potassium (3.5 - 5.1 mmol/L) 3.4 L Chloride (98 - 107 mmol/L) 103.0 Carbon Dioxide (21 - 32 mmol/L) 27.0 Anion Gap (10 - 20) 9.4 L BUN (7 - 18 mg/dL) 15 Creatinine (0.55 - 1.02 mg/dL) 0.80 Glomerular Filtr Rate (>=60 mL/min) > 60 BUN/Creatinine Ratio (10 - 20) 19.0 Glucose (74 - 106 mg/dL) 320 H Lactic Acid (0.4 - 1.9 mmol/L) 0.8 Calcium (8.5 - 10.1 mg/dL) 9.2 Total Bilirubin (0.0 - 1.0 mg/dL) 0.40 Direct Bilirubin (0.0 - 0.20 mg/dL) 0.10 AST (15 - 37 IUnit/L) 19 ALT (12 - 78 IUnit/L) 23 Total Alk Phosphatase (45 - 117 IUnit/L) 160 H Troponin I (0 - 45 pg/mL) <4.0 Total Protein (6.4 - 8.2 gram/dL) 8.0 Albumin (3.4 - 5.0 g/dL) 3.7 Globulin (2.7 - 4.2 gram/dL) 4.3 H Albumin/Globulin Ratio (0.75 - 1.50) 0.9 Hematology WBC (4.5 - 12.5 K/mm3) 8.4 RBC (3.7 - 5.2 mill/mm3) 4.96 Hgb (11.5 - 15.5 gram/dL) 14.4 Hct (36.0 - 46.0 %) 43.2 MCV (80 - 98 fL) 87.1 MCH (27.0 - 33.0 picogram) 29.0 MCHC (33.0 - 36.0 gram/dL) 33.3 RDW (11.6 - 16.2 %) 12.4 RDW Std Deviation (37.0 - 51.0 fL) 39.1 Plt Count (150 - 450 K/mm3) 237 MPV (6.7 - 11.0 fL) 12.2 H Neut % (Auto) (39.0 - 69.0 %) 54.7 Lymph % (Auto) (25.0 - 55.0 %) 34.1 [place] % (Auto) (0.0 - 10.0 %) 7.9 Eos % (Auto) (0.0 - 5.0 %) 2.0 Baso % (Auto) (0.0 - 1.0 %) 0.5 Neut # (Auto) (1.8 - 7.7 K/mm3) 4.59 Lymph # (Auto) (1.0 - 5.0 K/mm3) 2.86 [place] # (Auto) (0 - 0.8 K/mm3) 0.66 Eos # (Auto) (0.0 - 0.5 K/mm3) 0.17 Baso # (Auto) (0.0 - 0.2 K/mm3) 0.04 Add Manual Diff NO Nucleated RBC % (0 - 0 %) 0.0 Nucleated RBCs # (Man) (0.0 - 0.1 K/mm3) 0.00 Serology SARS-CoV-2 Ag (Rapid) (NEGATIVE) NEGATIVE Urines Urine Color (YELLOW) Light-Yellow Urine Appearance (CLEAR) CLEAR Urine pH (5.0 - 8.0) 5.5 Ur Specific [place] (1.001 - 1.035) 1.044 Urine Protein (NEGATIVE mg/dL) NEGATIVE Urine Glucose (UA) (NEGATIVE mg/dL) >1000 (4+) Urine Ketones (NEGATIVE mg/dL) NEGATIVE Urine Blood (NEGATIVE mg/dL) Negative Urine Nitrite (NEGATIVE) NEGATIVE Urine Bilirubin (NEGATIVE mg/dL) NEGATIVE Urine Urobilinogen (NEGATIVE mg/dL) Normal Ur Leukocyte Esterase (NEGATIVE Lisette/uL) NEGATIV E Urine RBC (0 - 5 #/HPF) 0-2 Urine WBC (0 - 5 per HPF) 0-5 Ur Epithelial Cells (FEW per HPF) FEW Urine Bacteria (NONE #/HPF) FEW H Laboratory Tests 12/17/212113: [Embedded Image Not Available] Radiology data: Recent Impressions: RADIOLOGY - XR CHEST 1 V 12/17 2039 Report Impression - Status: SIGNED Entered: 12/17/20212109 IMPRESSION: 1. Bilateral pulmonary scarring. 2. No evidence of acute cardiothoracic abnormali ties. Location code: Impression By: Shaka Duarte M.D. RADIOLOGY - XR FOOT 3 + V LT 12/17 2129 Report Impression - Status: SIGNED Entered: 12/17/20212206 IMPRESSION: No acute abnormality by plain film. Small heel s pur. Impression By: Esteban - Elise Mcelroy M.D. Results: labs reviewed, vital signs reviewed, vi alma signs stable Free Text PE Notes Free Text PE Notes: Left foot-patient has swelling around the left a nkle extending into the left lower leg. She also swelling on the dorsum of th e left foot most specifically on the lateral aspect. She has a open wo und with an eschar nondraining that is 1 x 3 inches along the lateral aspect of the lef t foot over the mid fifth metatarsal, she also has a 2 x 1 cm open lesion with a eschar nondraining mid third metatarsal shaft on the dorsum of the foot . There is no surrounding cellulitis but there is edema. Pulses intact neg ative sensory deficit Diagnosis, Assessment Plan Problem List/A P: 1. Diabetic foot ulcer 2. Sepsis 3. Uncontrolled hypertension Free Text A P: 1) sepsis due to diabetic foot ulcer-code sepsis ordered by ER and patient received 2.8 L normal saline 1 dose of R ocephin and vancomycin. Blood cultures x2 and urine culture were sent. We will continue Rocephin 1 g IV daily and patient is on normal saline at 100 cc an hour. X-ray of the foot was negative, left foot MRI has been ordered. Podiatry already consulted by ER 2) diabetes-check hemoglobin A1c lipid profile TSH. Patient will be on 2200 ADA diet and will continue her 70 3010 units before breakfast and dinner and hold off restarting the Metformin and glipizide. We w ill do Accu-Cheks with high- dose Humalog coverage 3) uncontrolled hypertension-patient will be res tarted on lisinopril 10 mg daily. Both to help control the blood pressure but also for renal protection in diabetics. Will monitor bloo d pressure closely and adjust medication as needed. 4) DVT prophylaxis-patient has been placed on se quential moderate compression device Consultants: podiatry Plan discussed with: patient Quality: Gen Med Crit Care VTE Prophylaxis VTE prophylaxis initiated: yes (mechanical comp device) Current Medications Current medication review: I attest that the foregoing medication list in t he medical record is true, accurate, and complete to the best of my knowled ge. Advanced Care Plan 65 or Older Discussed with: patient Discussion included: code status (full code) at 0146 RPT #:[id number] END OF REPORT 2021-12-17 21:25:00-00:00 [facility] ([facility]) EMERGENCY PROVIDER REPORT REPORT#:[id number] REPORT STATUS: Signed DATE:12/17/21 TIME: 2124 PATIENT: GLENNA HUBBARD UNIT #: [id number] ROOM/BED: [address] AGE: 41 SEX: F PCP PHYS: Benjamin Ramirez MD SERVICE AUTHOR: Zachery Nino APRN BLOCK MAKING MACHINE OPERATOR * ALL edits or amendments must be made on the [employer]computer document * Mica12/17/212124: HPI-Foot Prob/Inj Free Text HPI Notes Free Text HPI Notes 41-year-old female with hist ory of diabetes and hypertension presents to ED with left foot wound since 11/17/2022. Juliette carey was seen in [place] with moxifloxacin and ceftriaxone with betamethasone prescribed, l ast dose 2 weeks ago. Patient was seen by her PCP, SRINIVASA in [place], and referre d to core inspector, Dr. Rockwell-seen today and sent to ED for further evaluation. General Confirmed Patient Yes Initial Greet Date/Time 12/17/212000 PCP [facility] Presentation Chief Complaint Foot pain L Hx Obtained From Patient Onset Occurred Weeks ago Symptom Duration Since onset Progression since Onset Unchanged Caused by No trauma by history Associated Other Pt denies other symptoms Exacerbated by Nothing Relieved by Nothing Context Recent Healthcare Recent doctor visit Review of Systems ROS Statements All systems rev neg except as marked. Focused Review of Systems Constitutional Denies: Chills, Fever, Lethargy. Skin Reports: Ulceration. Neurologic Denies: Focal weakness, Numbness. Past Medical History - Adult Stated Complaint PAIN ANDSWELLING TO LT FTSENT B Y PCP FOR ADMIT Allergies Coded Allergies: No Known Allergies (12/17/21) Home Medications Reported Medications metFORMIN (GLUCOPHAGE) 1,000 MG PO BID glipiZIDE (GLUCOTROL) 10 MG PO BID Insulin Aspart Prot/Insuln Asp (NovoLOG Mix 70-3 0 FLEXPEN (15mL)) Discontinued Reported Medications [INSULIN] Review of Nursing Notes Triage notes reviewed Pt reports no significant: Past surgical history , Social history Past Medical History: Reports: Diabetes mellitus, Hypertension. Physical Exam Vital Signs Vital Signs First Documented: Result Date Time Pulse Ox 99 12/17 2003 B/P 149/101 12/17 2003 B/P Mean 117 12/17 2003 O2 Delivery Room air 12/17 2003 Temp 36.5 12/17 2003 Pulse 100 12/17 2003 Resp 18 12/17 2003 Last Documented: Result Date Time Pulse Ox 99 12/17 2003 B/P 149/101 12/17 2003 B/P Mean 117 12/17 2003 O2 Delivery Room air 12/17 2003 Temp 36.5 12/17 2003 Pulse 100 12/17 2003 Resp 18 12/17 2003 Review of Vital Signs Reviewed Focused PE General/Const General/Const Awake, Alert, Well appearing MS Ankle/Foot Text/Dict Note Open wound to dorsum of left foot. Skin Text/Dict Notes SEE ABOVE Neurologic Neurologic Oriented X3, Speech NL, No motor def icits, No sensory deficits Images Ankle/Foot Feet - Top View (L) [Embedded Image Not Available] 1) Wound Interpretation Diagnostics Lab Results Interpretation Results Laboratory Tests 12/17/212113: [Embedded Image Not Available] Laboratory Tests: 12/183 2113 2113 Chemistry Sodium (136 - 145 mmol/L) 136 Potassium (3.5 - 5.1 mmol/L) 3.4 L Chloride (98 - 107 mmol/L) 103.0 Carbon Dioxide (21 - 32 mmol/L) 27.0 Anion Gap (10 - 20) 9.4 L BUN (7 - 18 mg/dL) 15 Creatinine (0.55 - 1.02 mg/dL) 0.80 Glomerular Filtr Rate (>=60 mL/min) > 60 BUN/Creatinine Ratio (10 - 20) 19.0 Glucose (74 - 106 mg/dL) 320 H Lactic Acid (0.4 - 1.9 mmol/L) 0.8 Calcium (8.5 - 10.1 mg/dL) 9.2 Total Bilirubin (0.0 - 1.0 mg/dL) 0.40 Direct Bilirubin (0.0 - 0.20 mg/dL) 0.10 AST (15 - 37 IUnit/L) 19 ALT (12 - 78 IUnit/L) 23 Total Alk Phosphatase (45 - 117 IUnit/L) 160 H Troponin I (0 - 45 pg/mL) <4.0 Total Protein (6.4 - 8.2 gram/dL) 8.0 Albumin (3.4 - 5.0 g/dL) 3.7 Globulin (2.7 - 4.2 gram/dL) 4.3 H Albumin/Globulin Ratio (0.75 - 1.50) 0.9 Hematology WBC (4.5 - 12.5 K/mm3) 8.4 RBC (3.7 - 5.2 mill/mm3) 4.96 Hgb (11.5 - 15.5 gram/dL) 14.4 Hct (36.0 - 46.0 %) 43.2 MCV (80 - 98 fL) 87.1 MCH (27.0 - 33.0 picogram) 29.0 MCHC (33.0 - 36.0 gram/dL) 33.3 RDW (11.6 - 16.2 %) 12.4 RDW Std Deviation (37.0 - 51.0 fL) 39.1 Plt Count (150 - 450 K/mm3) 237 MPV (6.7 - 11.0 fL) 12.2 H Neut % (Auto) (39.0 - 69.0 %) 54.7 Lymph % (Auto) (25.0 - 55.0 %) 34.1 [place] % (Auto) (0.0 - 10.0 %) 7.9 Eos % (Auto) (0.0 - 5.0 %) 2.0 Baso % (Auto) (0.0 - 1.0 %) 0.5 Neut # (Auto) (1.8 - 7.7 K/mm3) 4.59 Lymph # (Auto) (1.0 - 5.0 K/mm3) 2.86 [place] # (Auto) (0 - 0.8 K/mm3) 0.66 Eos # (Auto) (0.0 - 0.5 K/mm3) 0.17 Baso # (Auto) (0.0 - 0.2 K/mm3) 0.04 Add Manual Diff NO Nucleated RBC % (0 - 0 %) 0.0 Nucleated RBCs # (Man) (0.0 - 0.1 K/mm3) 0.00 Serology SARS-CoV-2 Ag (Rapid) (NEGATIVE) NEGATIVE Urines Urine Color (YELLOW) Light-Yellow Urine Appearance (CLEAR) CLEAR Urine pH (5.0 - 8.0) 5.5 Ur Specific [place] (1.001 - 1.035) 1.044 Urine Protein (NEGATIVE mg/dL) NEGATIVE Urine Glucose (UA) (NEGATIVE mg/dL) >1000 (4+) Urine Ketones (NEGATIVE mg/dL) NEGATIVE Urine Blood (NEGATIVE mg/dL) Negative Urine Nitrite (NEGATIVE) NEGATIVE Urine Bilirubin (NEGATIVE mg/dL) NEGATIVE Urine Urobilinogen (NEGATIVE mg/dL) Normal Ur Leukocyte Esterase (NEGATIVE Lisette/uL) NEGATIV E Urine RBC (0 - 5 #/HPF) 0-2 Urine WBC (0 - 5 per HPF) 0-5 Ur Epithelial Cells (FEW per HPF) FEW Urine Bacteria (NONE #/HPF) FEW H Microbiology: Date/Time Procedure - Status Source Growth 12/17 2113 Urine Culture - COMP URINE 12/17 2113 Blood Culture - RES BLOOD Recent Impressions: RADIOLOGY - XR CHEST 1 V 12/17 2039 Report Impression - Status: SIGNED Entered: 12/17/20212109 IMPRESSION: 1. Bilateral pulmonary scarring. 2. No evidence of acute cardiothoracic abnormali ties. Location code: Impression By: Shaka Duarte M.D. RADIOLOGY - XR FOOT 3 + V LT 12/17 2129 Report Impression - Status: SIGNED Entered: 12/17/20212206 IMPRESSION: No acute abnormality by plain film. Small heel s pur. Impression By: Esteban Mcelroy M.D. Lab Imaging Statement Laboratory radiographic studies reviewed and con sidered in the medical decision-making. Point of Care Testing Pulse Oximetry Pulse Ox % 99 On: Room air Interpretation Interpreted by me, Pulse oximetr y normal Re-Evaluation MDM Re-Evaluation/Progress Compartment Syndrome There are no signs or sympto ms of compartment syndrome in the injured extremity at the time of this examination. Any pain the pa tient has is in proportion to the injury, the peripheral circulation is intact , capillary refill is not delayed, and there is no numbness, tingling or p aresthesia. Tissue Perfusion Reassessment Patient tissue perfusion reassessment completed. ED Course Medication(s) Ordered Medication(s) Ordered: Anti-Infective Agents Sig/Adriano Start time Last Medication Dose Route Stop Time Status Admin Ceftriaxone Sodium 1,000 MG X1ED STA 12/17 2319 DC 12/17 Sodium Chloride 10 ML IV 12/17 Ceftriaxone Sodium 1,000 MG X1ED STA 12/17 2027 DC Sodium Chloride 10 ML IV 12/17 2029 Vancomycin HCl 1,000 MG X1ED STA 12/17 2027 DC 12/17 Sodium Chloride 250 ML IV 12/17 2126 224 Electrolytic, Caloric, And Raul Sig/Adriano Start time Last Medication Dose Route Stop Time Status Admin Sodium Chloride 1,000 ML .Q10H 12/18 0045 AC IV 12/18 1244 Sodium Chloride 2,850 ML X1ED STA 12/17 2027 DC 12/17 IV 12/17 Consultation Consultation Referral/Consult Name Grant Laguna KAREEN Cherry Cutter Called PODIATRY Requested Call Time 0030 Requested Call Date 12/18/21 Cherry Cutter Will see patient, Agrees with eval, Agrees with plan, ADMIT TO HOSPITALIST Differential Diagnosis Differential Diagnosis Osteomyelitis Patient Discharge Departure Vital Signs/Condition Vital Signs First Documented: Result Date Time Pulse Ox 99 12/17 2003 B/P 149/101 12/17 2003 B/P Mean 117 12/17 2003 O2 Delivery Room air 12/17 2003 Temp 36.5 12/17 2003 Pulse 100 12/17 2003 Resp 18 12/17 2003 Last Documented: Result Date Time Pulse Ox 99 12/17 2003 B/P 149/101 12/17 2003 B/P Mean 117 12/17 2003 O2 Delivery Room air 12/17 2003 Temp 36.5 12/17 2003 Pulse 100 12/17 2003 Resp 18 12/17 2003 All vital signs available at the time of this en try have been reviewed. Condition Stable Clinical Impression Clinical Impression Primary Impression: Diabetic foot ulcer Disposition Decision Admit Admit Physician Name Amelia Herr MD Admit Physician Hospitalist Request Time 1244 Request Date 12/18/21 )( Admission Accepts Yes )( Accepted Time 0046 )( Accepted Date 12/18/21 Call Information will see patient, agrees with eval, agrees with plan Discharge/Care Plan Counseled Regarding Diagnosi s, Lab results, Imaging studies, Need for admission Admit Note I have spoken with the patie nt and/or caregivers. I have explained the patient's condition, diagnoses and lucy atment plan based on the information available to me at this time. I have answered the patient's and/ or caregiver's questions and addressed any concerns. The patient and/or careg irais have as good an understanding of the patient 's diagnosis, condition and treatment plan as can be expected at this point. The patient has been stabilized within the capability of the emergency department. The patient wi ll be transported for further care and management or will be moved to an observation or inpatient service. I have communicated with the staff or medical p ractitioner taking over this patient's care. 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 I was available for consultation as needed at al l times during the patient's visit in the emergency department. I agree with the clinical impression , plan and disposition. Electronically Signed by Zachery Nino 12/18/21 at 0427 at 2047 RPT #:[id number] END OF REPORT
--- NOTE | 2023-07-08 14:41 | EDPHYS ---
Physician Documentation [facility] Name: Glenna Finney Age: 42 yrs Sex: Female : 1980 Arrival Date: 07/08/2023 Time: 12:44 Bed DIS3 Private MD: ED Physician David Miller HPI: 07/08 13:35 Patient is a 42-year-old female that injured her left tip toe 1 month ago. Patient was jr11 placed on antibiotics however she works and stands for 12 hours a day, noticed an ulcer at the tip of her toe. Patient is a diabetic but has tried to keep her glucose less than 200. Tetanus is up-to-date. Patient is here because she started having streaking around the toe over the last 2 to 3 days. No fever. Denies any other complaints. Historical: - Allergies: 15:19 No Known Allergies; nj1 - PMHx: 15:19 Diabetes - NIDDM; Hypertension; nj1 - Immunization history:: Client reports having NOT received the Covid vaccine. - Social history:: Smoking status: Patient denies any tobacco usage or history of. ROS: 13:35 All other systems are negative. jr11 Exam: 13:35 Constitutional: This is a well developed, well nourished patient who is awake, alert, jr11 and in no acute distress. Head/Face: Normocephalic, atraumatic. Eyes: Extra-ocular motions intact. Lids and lashes normal. Conjunctiva and sclera are non-icteric and not injected. Cornea within normal limits. Periorbital areas with no swelling, redness, or edema. ENT: Nares patent. No nasal discharge, no septal abnormalities noted. Oropharynx with no redness, swelling, or masses, exudates, or evidence of obstruction, uvula midline. Mucous membranes moist. Neck: Trachea midline, no thyromegaly or masses palpated, and no cervical lymphadenopathy. Supple, full range of motion without nuchal rigidity, or vertebral point tenderness. No Meningismus. Chest/axilla: Normal chest wall appearance and motion. Nontender with no deformity. No lesions are appreciated. Cardiovascular: Regular rate and rhythm with a normal S1 and S2. No gallops, murmurs, or rubs. Normal PMI, no JVD. No pulse deficits. Respiratory: Lungs have equal breath sounds bilaterally, clear to auscultation and percussion. No rales, rhonchi or wheezes noted. No increased work of breathing, no retractions or nasal flaring. Abdomen/GI: Soft, non-tender, with normal bowel sounds. No distension or tympany. No guarding or rebound. No evidence of tenderness throughout. Back: No spinal tenderness. No costovertebral tenderness. Full range of motion. Skin: 2x2cm chronic ulcer to the tip of the first toe on the left side. Minimal surrounding redness, blanching, minimal edema. No bony tenderness Vital Signs: 14:45 BP 132 / 75; Pulse 91; Resp 18; Temp 97.2(O); Pulse Ox 98% on R/A; Weight 90.72 kg; nj1 Height 5 ft. 8 in. ; Pain 7/10; 14:45 Body Mass Index 30.41 (90.72 kg, 172.72 cm) nj 14:45 Pain Scale: Adult nj1 MDM: 13:35 Patient medically screened. [facility] 13:35 Differential Diagnosis Patient is a 42-year-old with cellulitis on her chronic foot jr11 wound, no systemic signs of infection, will treat with clindamycin local wound care, patient understands the need to keep glucose less than 200 and comfortable with that plan of care. Patient to follow-up with primary care for wound debridement as needed. Patient understands that if she does not care for this, she will likely need an amputation. Data reviewed: vital signs, nurses notes. 07/08 13:34 Order name: Wound dressing; Complete Time: 14:47 [facility] Administered Medications: 14:47 Drug: Rlewjxvh-Vglwnktjzo-Oniovuljl Topical Ointment 1 application Route: Topical; hb Site: wound; 14:47 Drug: Clindamycin PO 450 mg Route: PO; hb Disposition Summary: 07/08/23 14:41 Discharge Ordered Location: Home [facility] Condition: Stable [facility] Diagnosis - Cellulitis of left toe jr11 Discharge Instructions: - Discharge Summary Sheet jr11 - Cellulitis, Adult jr11 Forms: - Medication Reconciliation Form jr11 - Thank You Letter jr11 - Antibiotic Education jr11 - Prescription Opioid Use jr11 - Patient Portal Instructions jr11 - Leadership Thank You Letter jr11 Prescriptions: - Clindamycin HCl 300 mg Oral Capsule - take 1 capsule by ORAL route every 6 hours for 10 days; 40 capsule; Refills: 0, jr11 Product Selection Permitted Signatures: Mitali Mulligan RN RN David Miller MD MD jr11 Allyson Noguera RN RN nj1 Corrections: (The following items were deleted from the chart) 15: Immunization history: Client reports having NOT received the Covid vaccine. nj1 nj1 15:19 Social history: Smoking status: Patient denies any tobacco usage or history of. nj1 nj1
[2023-07-08] MEDS ORDERED: MUPIROCIN 2% OINT 22GM TUBE TOP ONE (14:51)
--- NOTE | 2023-07-08 15:03 | ER ---
Nurse's Notes [facility] Name: Glenna Finney Age: 42 yrs Sex: Female : 1980 Arrival Date: 07/08/2023 Time: 12:44 Bed DIS3 Private MD: Diagnosis: Cellulitis of left toe Presentation: 07/08 14:45 Chief complaint: Patient states: Left big toe wound, first noticed about 1.5 weeks ago. nj1 "It started draining pus". 14:45 Coronavirus screen: Vaccine status: Patient reports being unvaccinated. Ebola Screen: nj1 Patient denies travel to an Ebola-affected area in the 21 days before illness onset. Initial Sepsis Screen: Does the patient meet any 2 criteria? HR > 90 bpm. No. Patient's initial sepsis screen is negative. Does the patient have a suspected source of infection? No. Patient's initial sepsis screen is negative. Risk Assessment: Do you want to hurt yourself or someone else? Patient reports no desire to harm self or others. Onset of symptoms was June 2023. 14:45 Method Of Arrival: Ambulatory [facility] 14:45 Acuity: GIGI 3 nj Historical: - Allergies: 15:19 No Known Allergies; nj1 - PMHx: 15:19 Diabetes - NIDDM; Hypertension; nj1 - Immunization history:: Client reports having NOT received the Covid vaccine. - Social history:: Smoking status: Patient denies any tobacco usage or history of. Vital Signs: 14:45 BP 132 / 75; Pulse 91; Resp 18; Temp 97.2(O); Pulse Ox 98% on R/A; Weight 90.72 kg; nj1 Height 5 ft. 8 in. ; Pain 7/10; 14:45 Body Mass Index 30.41 (90.72 kg, 172.72 cm) nj1 14:45 Pain Scale: Adult [facility] ED Course: 13:25 Patient arrived in ED. ts1 13:28 David Miller MD is Attending Physician. jr11 14:50 Patient did not have IV access during this emergency room visit. nj1 15:19 Triage completed. nj1 15:19 Arm band placed on. nj1 Administered Medications: 14:47 Drug: Tcjessqi-Zgtfschpzq-Mguawhull Topical Ointment 1 application Route: Topical; hb Site: wound; 14:47 Drug: Clindamycin PO 450 mg Route: PO; hb Outcome: 14:41 Discharge ordered by . jack 14:50 Discharged to home ambulatory. nj1 14:50 Condition: stable nj 14:50 Discharge instructions given to patient, Instructed on discharge instructions, follow up and referral plans. medication usage, wound care, Demonstrated understanding of instructions, follow-up care, medications, wound care, Prescriptions given X 1. 15:02 Patient left the ED. Signatures: Mitali Mulligan RN RN David Miller MD MD jr11 Allyson Noguera RN RN nj1 Stella Bryan PAS PAS ts1 Corrections: (The following items were deleted from the chart) 15:20 15:19 Immunization history: Client reports having NOT received the Covid vaccine. [facility] nj1 15:20 15:19 Social history: Smoking status: Patient denies any tobacco usage or history of. nj1 nj1
== END 2023-07-08 15:02 | disposition home or self-care (01) ==
LOC: ER 12:44
DX: L03.032 Cellulitis of left toe (principal); E11.9 Type 2 diabetes mellitus without complications; I10 Essential (primary) hypertension
CPT/HCPCS: 99283

== ENCOUNTER 2023-10-07 22:36 | Emergency (ER) | payer SELFPAY ==
--- OUTSIDE RECORDS SUMMARY | 2023-10-07 22:55 | XMS REPORT | Continuity of Care Document ---
:1980 Author Organization [facility] t Address [address] [place] [address] Care Team Providers Name Role Phone Pcp, Patient Does Not Have A Primary Care Physician [id number] [place] Attending Clinician Unavailable Arrow RockAlban Chacon Attending Clinician [email or web address] Attending Clinician Unavailable Lorena Mclain Attending Clinician Unavailable EDDOC, GENERIC FOR EDM Attending Clinician Unavailable ESHA CUI Attending Clinician Unavailable Esha Cui DO Attending Clinician VIVIANE MCKEON Attending Clinician Unavailable Viviane Conti Attending Clinician Doctor Unassigned, [place] Attending Clinician Unavailable FRANK SAMPSON Attending Clinician Unavailable FRANK SAMPSON Attending Clinician Unavailable Edgardo Jim DO Attending Clinician Frank Sampson DO Attending Clinician MO QUINTERO Attending Clinician Unavailable Mo Quintero MD Attending Clinician Rm, Adc Surg Spec Procedure Attending Clinician Unavailable [email or web address] Admitting Clinician Unavailable Amelia Herr Admitting Clinician Unavailable Physician, No Primary or Family Admitting Clinician UnavailESHA Ho Admitting Clinician Unavailable Payers Payer Name Policy Type Policy Number Effective Date Expiration Date Sugar COLLAZO II [id number] 2016 00:00:00 Problems Condition Condition Condition Status [...] the ons ons original. ICD10 Diagnosis Term Machine [place] Utility General General Disease Active 2013-11 Overview: Univ ers counseling counseling 1-23 Formattin ity of and advice and advice 00:00: g of this [place] for for 00 note Medical contracept contracept might be Branch jonathan jonathan different management management from the original. ICD10 Diagnosis Term Machine [place] Utility Elevated Elevated Disease Active 2013-11 Unive rs blood blood 1-23 ity of pressure pressure 00:00: [place] reading reading 00 Medical without without Branch diagnosis diagnosis of of hypertensi hypertensi on on Dysmenorrh Dysmenorrh Disease Active 2013-11 U nivers ea ea 12-12 ity of 00:00: [place] [address] [facility] Allergies, Adverse Reactions, Alerts Allergy Allergy Status Severity Reaction(s) Onset Inactive Treating Comm ents Source Name Type Date Date Clinician No Known DA Active U [facility] Allergie 12-17 Clear s 00:00: [place] 00 [facility] NO KNOWN Drug Active Univers ALLERGIE Class ity of [facility] Social History Social Habit Start Date Stop Date Quantity Comments Source Exposure to Not sure [facility] SARS-CoV-2 (event) [facility] History of tobacco Cigarette Smoker [facility] use [facility] intake 2023-10-03 2023-10-03 Current University 00:00:00 00:00:00 non-drinker of [facility] alcohol Branch (finding) History of Social 2020-09-11 2020-09-11 Univers ity of function 00:00:00 00:00:00 [facility] Tobacco use and 2020-08-21 2020-08-21 Smokeless Universit y of exposure 00:00:00 00:00:00 tobacco [facility]-user [facility] At [birth year] Universit y of 00:00:00 00:00:00 [facility] Smoking Status Start Date Stop Date Source Ex-smoker 2020-08-21 00:00:00 2020-08-21 00:00:00 Universi ty [facility] Never smoker [facility] Medications Ordered Filled Start Stop Current Ordering Indication Dosage Frequency Signature Comments Components Source Medication Medication Date Date Medication? Clinician (SIG) Name Name amoxicillin 2022-11 Yes [id number] 1{tbl} Take 1 Univers -clavulanat 1-14 tablet by ity of e 875-125 00:00: mouth [place] mg per 00 every 12 Medical tablet (twelve) Branch hours. TAKE 3 2021-0 No CAPSULES BY 6-21 MOUTH THREE 00:00: TIMES DAILY 00 FOR 7 DAYS TAKE 3 2021-0 No CAPSULES BY 6-21 MOUTH THREE 00:00: TIMES DAILY 00 FOR 7 DAYS furosemide 2021- No 1mg 20 mg 6-18 tablet 00:00: 00 furosemide 2021-0 No 1mg 20 mg 6-18 tablet 00:00: 00 Dose 2021-0 No Unknown 3-18 00:00: 00 Dose 2022-0 [...] 2022-0 No Unknown 3-04 00:00: 00 Dose 2021-0 No Unknown 3-04 00:00: 00 Dose 2021-0 No Unknown 3-04 00:00: 00 Dose 2021-0 No Unknown 3-04 00:00: 00 Dose 2-0 No Unknown 3-04 00:00: 00 Dose 2-0 No Unknown 3-04 00:00: 00 metformin 2021-0 2021- No 1000mg Take 1,000 Univers HCl 12-17-28 mg by ity of (METFORMIN 14:49: 00:00 mouth 2 [place] as ORAL) 01 :00 (two) Medical times Branch daily. glipiZIDE 2021- No 10mg Take 10 mg U nivers 10 mg 12-17 by mouth 2 ity of tablet 14:49: 00:00 (two) [place] 01 :00 times Medical daily Branch before breakfast and dinner. glipiZIDE Yes [id number] 10mg Take 1 Un irais 10 mg 12-17 tablet by ity of tablet 00:00: mouth 2 (two) Medical times Branch daily before breakfast and dinner. metFORMIN Yes [id number] 500mg Take 1 U nivers 500 mg - tablet by ity of tablet 00:00: mouth 2 (two) Medical times Branch daily. glipiZIDE Yes [id number] 10mg Take 1 Un irais 10 mg -28 tablet by ity of tablet 00:00: mouth 2 (two) Medical times Branch daily before breakfast and dinner. metFORMIN Yes [id number] 500mg Take 1 U nivers 500 mg - tablet by ity of tablet 00:00: mouth 2 (two) Medical times Branch daily. insulin NPH 2021- No [id number] 10U inject 10 Univers and regular 12-17-28 Units ity of human 70-30 00:00: 05:59 under the [place] 100 unit/mL 00 :00 skin 2 Medica l (70-30) (two) Branch injection times daily before breakfast and dinner for 30 days. clindamycin 2021- No [id number] 450mg Take 3 Univers 150 mg 11-28 [id number] capsules ity of capsule 00:00: 05:59 by mouth 3 [place] as 00 :00 (three) Medical times Branch daily for 7 days. sulfamethox 1-0 No 1mg azole 800 9-21 mg-trimetho 00:00: prim 160 mg 00 tablet amoxicillin 2020-0 No 1mg 875 9-21 mg-potassiu 00:00: m 00 clavulanate 125 mg tablet sulfamethox 2020-0 No 1mg azole 800 9-21 mg-trimetho 00:00: prim 160 mg 00 tablet amoxicillin 2020-0 No 1mg 875 9-21 mg-potassiu 00:00: m 00 clavulanate 125 mg tablet ProAir HFA 2020-0 No 2mcg/ac 90 8-31 tuation mcg/actuati 00:00: on aerosol 00 inhaler Novolin 2020-0 No 10unit/ 70/30 U-100 8-31 mL Insulin 100 00:00: (70-30) unit/mL 00 subcutaneou s suspension metformin 2020-0 No 1mg 1,000 mg 8-31 tablet 00:00: 00 glipizide 2021-0 No 2mg 10 mg 8-31 tablet 00:00: 00 ProAir HFA 2020-0 No 2mcg/ac 90 8-31 tuation mcg/actuati 00:00: on aerosol 00 inhaler Novolin 1-0 No 10unit/ 70/30 U-100 8-31 mL Insulin 100 00:00: (70-30) unit/mL 00 subcutaneou s suspension metformin 2020-0 No 1mg 1,000 mg 8-31 tablet 00:00: 00 glipizide 2021-0 No 2mg 10 mg 8-31 tablet 00:00: 00 ibuprofen 1-0 No 1mg 800 mg 1-08 tablet 00:00: 00 Dose 1-0 No Unknown 1-08 00:00: 00 nitrofurant 1-0 No 1mg oin 1-08 macrocrysta 00:00: l 100 mg 00 capsule ibuprofen 1-0 No 1mg 800 mg 1-08 tablet 00:00: 00 cyclobenzap 1-0 No 1mg rine 10 mg 1-08 tablet 00:00: 00 nitrofurant 2021-0 No 1mg oin 1-08 macrocrysta 00:00: l 100 mg 00 capsule AirDuo 2019-11 No 1mcg/ac RespiClick 1-04 tuation 232 mcg-14 00:00: mcg/actuati 00 on breath activated AirDuo 2019-11 No 1mcg/ac RespiClick 1-04 tuation 232 mcg-14 00:00: mcg/actuati 00 on breath activated Advair 2019-11 No 1mcg/do Diskus 500 1-04 se mcg-50 00:00: mcg/dose 00 powder for inhalation levofloxaci 2019-11 No 1mg n 500 mg 1-04 tablet 00:00: 00 dexamethaso 2019-11 No 1mg ne 4 mg 1-04 tablet 00:00: 00 Advair 2019-11 No 1mcg/do Diskus 500 1-04 se mcg-50 00:00: mcg/dose 00 powder for inhalation levofloxaci 2019-11 No 1mg n 500 mg 1-04 tablet 00:00: 00 dexamethaso 2019-11 No 1mg ne 4 mg 1-04 tablet 00:00: 00 ALBUTEROL 2019-11 Yes 1{puff} Inhale 1 U nivers INHALE 0-16 Puff. ity of 16:02: [place] [address] Medical Branch metformin 2019- Yes 1000mg Take 1,000 Univers HCl 0-16 mg by ity of (METFORMIN 16:02: [place] (two) Medical times Branch daily. glipiZIDE 2019-11 Yes 10mg Take 10 mg Un irais 10 mg 0-16 by mouth 2 ity of tablet 16:02: (two) [place] [address] times Medical daily Branch before breakfast and dinner. lisinopriL 2019- Yes 10mg Take 10 mg U nivers 10 mg 0-16 by mouth ity of tablet 16:02: daily. [place] [address] Medical Branch aspirin 325 2019- Yes 325mg Take 325 U nivers mg tablet 0-16 mg by ity of 16:02: mouth [place] [address] daily. Medical Branch ALBUTEROL 2019- Yes 1{puff} Inhale 1 U nivers INHALE 0-16 Puff. ity of 16:02: [place] [address] Medical Branch metformin 2019- Yes 1000mg Take 1,000 Univers HCl 0-16 mg by ity of (METFORMIN 16:02: [place] 58 (two) Medical times Branch daily. glipiZIDE 2020- Yes 10mg Take 10 mg Un irais 10 mg 0-16 by mouth 2 ity of tablet 16:02: (two) [place] [address] times Medical daily Branch before breakfast and dinner. lisinopriL 2020- Yes 10mg Take 10 mg U nivers 10 mg 0-16 by mouth ity of tablet 16:02: daily. [address] Branch aspirin 325 2019- Yes 325mg Take 325 U nivers mg tablet 0-16 mg by ity of 16:02: mouth [place] 58 daily. Medical Branch ALBUTEROL 2019- Yes 1{puff} Inhale 1 U nivers INHALE 0-16 Puff. ity of 16:02: [address] metformin 2020- Yes 1000mg Take 1,000 Univers HCl 0-16 mg by ity of (METFORMIN 16:02: mouth 2 [place] 58 (two) Medical times Branch daily. glipiZIDE 2019- Yes 10mg Take 10 mg Un irais 10 mg 0-16 by mouth 2 ity of tablet 16:02: (two) [address] Medical daily Branch before breakfast and dinner. lisinopriL 2019- Yes 10mg Take 10 mg U nivers 10 mg 0-16 by mouth ity of tablet 16:02: daily. [address] aspirin 325 2019- Yes 325mg Take 325 U nivers mg tablet 0-16 mg by ity of 16:02: mouth [place] 58 daily. Medical Branch ALBUTEROL 2019- Yes 1{puff} Inhale 1 U nivers INHALE 0-16 Puff. ity of 16:02: [address] metformin 2020- Yes 1000mg Take 1,000 Univers HCl 0-16 mg by ity of (METFORMIN 16:02: mouth 2 [place] 58 (two) Medical times Branch daily. glipiZIDE 2019- Yes 10mg Take 10 mg Un irais 10 mg 0-16 by mouth 2 ity of tablet 16:02: (two) [address] Medical daily Branch before breakfast and dinner. lisinopriL 2019- Yes 10mg Take 10 mg U nivers 10 mg 0-16 by mouth ity of tablet 16:02: daily. [address] Branch aspirin 325 2019- Yes 325mg Take 325 U nivers mg tablet 0-16 mg by ity of 16:02: mouth [place] 58 daily. Medical Branch ALBUTEROL 2019-11 Yes 1{puff} Inhale 1 U nivers INHALE 0-16 Puff. ity of 16:02: [address] Branch metformin 2019- Yes 1000mg Take 1,000 Univers HCl 0-16 mg by ity of (METFORMIN 16:02: mouth 2 [place] 58 (two) Medical times Branch daily. glipiZIDE 2019-11 Yes 10mg Take 10 mg Un irais 10 mg 0-16 by mouth 2 ity of tablet 16:02: (two) [address] Medical daily Branch before breakfast and dinner. lisinopriL 2019-11 Yes 10mg Take 10 mg U nivers 10 mg 0-16 by mouth ity of tablet 16:02: daily. [address] aspirin 325 2019-11 Yes 325mg Take 325 U nivers mg tablet 0-16 mg by ity of 16:02: mouth [place] 58 daily. Medical Branch ALBUTEROL 2019-11 Yes 1{puff} Inhale 1 U nivers INHALE 0-16 Puff. ity of 16:02: [address] metformin 2019-11 Yes 1000mg Take 1,000 Univers HCl 0-16 mg by ity of (METFORMIN 16:02: mouth 2 [place] 58 (two) Medical times Branch daily. glipiZIDE 2019-11 Yes 10mg Take 10 mg Un irais 10 mg 0-16 by mouth 2 ity of tablet 16:02: (two) [address] Medical daily Branch before breakfast and dinner. lisinopriL 2019- Yes 10mg Take 10 mg U nivers 10 mg 0-16 by mouth ity of tablet 16:02: daily. [address] aspirin 325 2019- Yes 325mg Take 325 U nivers mg tablet 0-16 mg by ity of 16:02: mouth [place] 58 daily. Medical Branch ALBUTEROL 2019-11 Yes 1{puff} Inhale 1 U nivers INHALE 0-16 Puff. ity of 16:02: [place] [address] Medical Branch metformin 2019- Yes 1000mg Take 1,000 Univers HCl 0-16 mg by ity of (METFORMIN 16:02: mouth 2 [place]AL[place] 58 (two) Medical times Branch daily. glipiZIDE 2020- Yes 10mg Take 10 mg Un irais 10 mg 0-16 by mouth 2 ity of tablet 16:02: (two) [address] Medical daily Branch before breakfast and dinner. lisinopriL 2020- Yes 10mg Take 10 mg U nivers 10 mg 0-16 by mouth ity of tablet 16:02: daily. [address] Branch aspirin 325 2020- Yes 325mg Take 325 U nivers mg tablet 0-16 mg by ity of 16:02: mouth [place] 58 daily. Medical Branch ALBUTEROL 2019- Yes 1{puff} Inhale 1 U nivers INHALE 0-16 Puff. ity of 16:02: [address] metformin 2020- Yes 1000mg Take 1,000 Univers HCl 0-16 mg by ity of (METFORMIN 16:02: mouth 2 [place]AL[place] 58 (two) Medical times [place] daily. glipiZIDE 2019- Yes 10mg Take 10 mg Un irais 10 mg 0-16 by mouth 2 ity of tablet 16:02: (two) [address] Medical daily Branch before breakfast and dinner. lisinopriL 2019- Yes 10mg Take 10 mg U nivers 10 mg 0-16 by mouth ity of tablet 16:02: daily. [address] aspirin 325 2019- Yes 325mg Take 325 U nivers mg tablet 0-16 mg by ity of 16:02: mouth [place] 58 daily. Medical Branch ALBUTEROL 2019- Yes 1{puff} Inhale 1 U nivers INHALE 0-16 Puff. ity of 16:02: [address] metformin 2020- Yes 1000mg Take 1,000 Univers HCl 0-16 mg by ity of (METFORMIN 16:02: mouth 2 [place]AL[place] 58 (two) Medical times Branch daily. glipiZIDE 2020- Yes 10mg Take 10 mg Un irais 10 mg 0-16 by mouth 2 ity of tablet 16:02: (two) [address] Medical daily Branch before breakfast and dinner. lisinopriL 2020- Yes 10mg Take 10 mg U nivers 10 mg 0-16 by mouth ity of tablet 16:02: daily. [address] aspirin 325 2019-11 Yes 325mg Take 325 U nivers mg tablet 0-16 mg by ity of 16:02: mouth [place] 58 daily. Medical Branch ALBUTEROL 2019-11 Yes 1{puff} Inhale 1 U nivers INHALE 0-16 Puff. ity of 16:02: [place] [address] Medical Branch metformin 2019-11 Yes 1000mg Take 1,000 Univers HCl 0-16 mg by ity of (METFORMIN 16:02: mouth 2 [place] 58 (two) Medical times Branch daily. glipiZIDE 2019-11 Yes 10mg Take 10 mg Un irais 10 mg 0-16 by mouth 2 ity of tablet 16:02: (two) [place] [address] times Medical daily Branch before breakfast and dinner. lisinopriL 2019-11 Yes 10mg Take 10 mg U nivers 10 mg 0-16 by mouth ity of tablet 16:02: daily. [address] Branch aspirin 325 2019-11 Yes 325mg Take 325 U nivers mg tablet 0-16 mg by ity of 16:02: mouth [place] 58 daily. Medical Branch ALBUTEROL 2019-11 Yes 1{puff} Inhale 1 U nivers INHALE 0-16 Puff. ity of 11:02: [place] [address] Medical Branch metformin 2019-11 Yes 1000mg Take 1,000 Univers HCl 0-16 mg by ity of (METFORMIN 11:02: mouth 2 [place]AL[place] 58 (two) Medical times Branch daily. glipiZIDE 2019-11 Yes 10mg Take 10 mg Un irais 10 mg 0-16 by mouth 2 ity of tablet 11:02: (two) [address] Medical daily Branch before breakfast and dinner. lisinopriL 2019-11 Yes 10mg Take 10 mg U nivers 10 mg 0-16 by mouth ity of tablet 11:02: daily. [address] Branch aspirin 325 2019-11 Yes 325mg Take 325 U nivers mg tablet 0-16 mg by ity of 11:02: mouth [place] 58 daily. Medical Branch ALBUTEROL 2019-11 Yes 1{puff} Inhale 1 U nivers INHALE 0-16 Puff. ity of 11:02: [place] [address] Medical Branch metformin 2019-11 Yes 1000mg Take 1,000 Univers HCl 0-16 mg by ity of (METFORMIN 11:02: mouth 2 [place] 58 (two) Medical times Branch daily. glipiZIDE 2019-11 Yes 10mg Take 10 mg Un irais 10 mg 0-16 by mouth 2 ity of tablet 11:02: (two) [place] [address] times Medical daily Branch before breakfast and dinner. lisinopriL 2019-11 Yes 10mg Take 10 mg U nivers 10 mg 0-16 by mouth ity of tablet 11:02: daily. [place] [address] Medical Branch aspirin 325 2019-11 Yes 325mg Take 325 U nivers mg tablet 0-16 mg by ity of 11:02: mouth [place] [address] daily. Medical Branch ALBUTEROL 2019-11 Yes 1{puff} Inhale 1 U nivers INHALE 0-16 Puff. ity of 11:02: [place] [address] Medical Branch lisinopriL 2019-11 Yes 10mg Take 10 mg U nivers 10 mg 0-16 by mouth ity of tablet 11:02: daily. [place] [address] Medical Branch aspirin 325 2019-11 Yes 325mg Take 325 U nivers mg tablet 0-16 mg by ity of 11:02: mouth [place] [address] daily. Medical Branch ALBUTEROL 2019-11 Yes 1{puff} Inhale 1 U nivers INHALE 0-16 Puff. ity of 11:02: [place] [address] Medical Branch lisinopriL 2019-11 Yes 10mg Take 10 mg U nivers 10 mg 0-16 by mouth ity of tablet 11:02: daily. [place] [address] Medical Branch aspirin 325 2019-11 Yes 325mg Take 325 U nivers mg tablet 0-16 mg by ity of 11:02: mouth [place] [address] daily. Medical Branch ProAir HFA 2019-11 No [...] mouth 2 ity of tablet 16:46: (two) [place] [address] times Medical daily Branch before breakfast and dinner. lisinopriL 2019-11 Yes 10mg Take 10 mg U nivers 10 mg 0-02 by mouth ity of tablet 16:46: daily. [address] Branch aspirin 325 2019- Yes 325mg Take 325 U nivers mg tablet 0-02 mg by ity of 16:46: mouth [place] [address] daily. Medical Branch glipiZIDE 2019-11 Yes 10mg Take 10 mg Un irais 10 mg 0-02 by mouth 2 ity of tablet 16:46: (two) [address] Medical daily Branch before breakfast and dinner. lisinopriL 2019-11 Yes 10mg Take 10 mg U nivers 10 mg 0-02 by mouth ity of tablet 16:46: daily. [address] Branch aspirin 325 2019- Yes 325mg Take 325 U nivers mg tablet 0-02 mg by ity of 16:46: mouth [place] [address] daily. Medical Branch glipiZIDE 2019-11 Yes 10mg Take 10 mg Un irais 10 mg 0-02 by mouth 2 ity of tablet 16:46: (two) [address] Medical daily Branch before breakfast and dinner. lisinopriL 2019-11 Yes 10mg Take 10 mg U nivers 10 mg 0-02 by mouth ity of tablet 16:46: daily. [address] Branch aspirin 325 2019-11 Yes 325mg Take 325 U nivers mg tablet 0-02 mg by ity of 16:46: mouth [place] [address] daily. Medical Branch ALBUTEROL 2019-11 Yes 1{puff} Inhale 1 U nivers INHALE 0-02 Puff. ity of 16:46: [address] Branch metformin 2019- Yes 1000mg Take 1,000 Univers HCl 0-02 mg by ity of (METFORMIN 16:46: mouth 2 [place] 16 (two) Medical times Branch daily. ALBUTEROL 2019-11 Yes 1{puff} Inhale 1 U nivers INHALE 0-02 Puff. ity of 16:46: [address] Branch metformin 2019- Yes 1000mg Take 1,000 Univers HCl 0-02 mg by ity of (METFORMIN 16:46: mouth 2 [place]AL[place] 16 (two) Medical times Branch daily. ALBUTEROL 2019- Yes 1{puff} Inhale 1 U nivers INHALE 0-02 Puff. ity of 16:46: [place] 16 Medical Branch metformin 2020-1 Yes 1000mg Take 1,000 Univers HCl 0-02 mg by ity of (METFORMIN 16:46: mouth 2 [place] ORAL[place] 16 (two) Medical times Branch daily. fluticasone 2020- Yes [id number] 1{puff} Inhale 1 Univers propion-rowena 0-02 Puff 2 ity of meteroL 00:00: (two) [place] (AIRDUO 00 times Medical RESPICLICK) daily. Branch 113-14 mcg/actuati on AePB fluticasone 2020- Yes [id number] 1{puff} Inhale 1 Univers propion-rowena 0-02 Puff 2 ity of meteroL 00:00: (two) [place] (AIRDUO 00 times Medical RESPICLICK) daily. Branch 113-14 mcg/actuati on AePB fluticasone 2020- Yes [id number] 1{puff} Inhale 1 Univers propion-rowena 0-02 Puff 2 ity of meteroL 00:00: (two) [place] (AIRDUO 00 times Medical RESPICLICK) daily. Branch 113-14 mcg/actuati on AePB fluticasone 2020- Yes [id number] 1{puff} Inhale 1 Univers propion-rowena 0-02 Puff 2 ity of meteroL 00:00: (two) [place] (AIRDUO 00 times Medical RESPICLICK) daily. Branch 113-14 mcg/actuati on AePB fluticasone 2020- Yes [id number] 1{puff} Inhale 1 Univers propion-rowena 0-02 Puff 2 ity of meteroL 00:00: (two) [place] (AIRDUO 00 times Medical RESPICLICK) daily. Branch 113-14 mcg/actuati on AePB fluticasone 2020- Yes [id number] 1{puff} Inhale 1 Univers propion-rowena 0-02 Puff 2 ity of meteroL 00:00: (two) [place] (AIRDUO 00 times Medical RESPICLICK) daily. Branch 113-14 mcg/actuati on AePB fluticasone 2020-1 Yes [id number] 1{puff} Inhale 1 Univers propion-rowena 0-02 Puff 2 ity of meteroL 00:00: (two) [place] (AIRDUO 00 times Medical RESPICLICK) daily. Branch 113-14 mcg/actuati on AePB fluticasone 2020-1 Yes [id number] 1{puff} Inhale 1 Univers propion-rowena 0-02 Puff 2 ity of meteroL 00:00: (two) [place] (AIRDUO 00 times Medical RESPICLICK) daily. Branch 113-14 mcg/actuati on AePB fluticasone 2020-1 Yes [id number] 1{puff} Inhale 1 Univers propion-rowena 0-02 Puff 2 ity of meteroL 00:00: (two) [place] (AIRDUO 00 times Medical RESPICLICK) daily. Branch 113-14 mcg/actuati on AePB fluticasone 2020-1 Yes [id number] 1{puff} Inhale 1 Univers propion-rowena 0-02 Puff 2 ity of meteroL 00:00: (two) [place] (AIRDUO 00 times Medical RESPICLICK) daily. Branch 113-14 mcg/actuati on AePB fluticasone 2020-1 Yes [id number] 1{puff} Inhale 1 Univers propion-rowena 0-02 Puff 2 ity of meteroL 00:00: (two) [place] (AIRDUO 00 times Medical RESPICLICK) daily. Branch 113-14 mcg/actuati on AePB fluticasone 2020-1 Yes [id number] 1{puff} Inhale 1 Univers propion-rowena 0-02 Puff 2 ity of meteroL 00:00: (two) [place] (AIRDUO 00 times Medical RESPICLICK) daily. Branch 113-14 mcg/actuati on AePB fluticasone 2020-1 Yes [id number] 1{puff} Inhale 1 Univers propion-rowena 0-02 Puff 2 ity of meteroL 00:00: (two) [place] (AIRDUO 00 times Medical RESPICLICK) daily. Branch 113-14 mcg/actuati on AePB fluticasone 2020-1 Yes [id number] 1{puff} Inhale 1 Univers propion-rowena 0-02 Puff 2 ity of meteroL 00:00: (two) [place] (AIRDUO 00 times Medical RESPICLICK) daily. Branch 113-14 mcg/actuati on AePB fluticasone 2020-1 Yes [id number] 1{puff} Inhale 1 Univers propion-rowena 0-02 Puff 2 ity of meteroL 00:00: (two) [place] (AIRDUO 00 times Medical RESPICLICK) daily. Branch 113-14 mcg/actuati on AePB fluticasone 2020-1 Yes [id number] 1{puff} Inhale 1 Univers propion-rowena 0-02 Puff 2 ity of meteroL 00:00: (two) [place] (AIRDUO 00 times Medical RESPICLICK) daily. Branch 113-14 mcg/actuati on AePB fluticasone 2020-1 Yes [id number] 1{puff} Inhale 1 Univers propion-rowena 0-02 Puff 2 ity of meteroL 00:00: (two) [place] (AIRDUO 00 times Medical RESPICLICK) daily. Branch [...] aspirin 325 2020-0 No 1mg mg tablet 908 00:00: 00 prednisone 2020-0 No 1mg 20 [...] injection solution triamcinolo 2018-0 No 1% ne 6- acetonide 00:00: 0.1 % 00 topical cream [...] glimepiride 2017-0 No 1mg 2 mg tablet 613 00:00: 00 lisinopril 2017-0 No 1mg 5 mg tablet 6 00:00: 00 metformin 2017-0 No 1mg 1,000 mg 6-13 tablet 00:00: 00 Novolin R 2017-0 No unit/mL Regular 6-13 U-100 00:00: Insulin 100 00 unit/mL injection solution lovastatin 2017-0 No 1mg 10 mg 6-13 tablet 00:00: 00 glimepiride 2017-0 No 1mg 2 mg tablet 05-02 00:00: 00 lisinopril 2017-0 No 1mg 5 mg tablet 13 00:00: 00 metformin 2017-0 No 1mg 1,000 mg 6-13 tablet 00:00: 00 glimepiride 2016-0 No 1mg 2 mg tablet 07-29 00:00: 00 glimepiride 2016-0 No 1mg 2 mg tablet 07-29 00:00: 00 metformin 2016-0 No 1mg 1,000 mg 9-09 tablet 00:00: 00 metformin 2016-0 No 1mg 1,000 mg 9-09 tablet 00:00: 00 No known No Univers medications ity of [facility] Immunizations Ordered Filled Date Status Comments Source Immunization Name Immunization Name Moderna COVID-19 2021-03-26 Completed Vaccine 00:00:00 Moderna COVID-19 2021-03-26 Completed Vaccine 00:00:00 Moderna COVID-19 2021-02-26 Completed Vaccine 00:00:00 Moderna COVID-19 2021-02-26 Completed Vaccine 00:00:00 MMR 2014-10-22 Completed University 00:00:00 [facility] MMR 2014-10-22 Completed University 00:00:00 [facility] MMR 2014-10-22 Completed University of 00:00:00 [facility] MMR 2014-10-22 Completed University of 00:00:00 [facility] MMR 2014-10-22 Completed University of 00:00:00 [facility] MMR 2014-10-22 Completed University of 00:00:00 [facility] MMR 2014-10-22 Completed University of 00:00:00 [facility] MMR 2014-10-22 Completed University of 00:00:00 [facility] MMR 2014-10-22 Completed University of 00:00:00 [facility] MMR 2014-10-22 Completed University of 00:00:00 [facility] MMR 2014-10-22 Completed University of 00:00:00 [facility] MMR 2014-10-22 Completed University of 00:00:00 [facility] MMR 2014-10-22 Completed University of 00:00:00 [facility] MMR 2014-10-22 Completed University of 00:00:00 [facility] MMR 2014-10-22 Completed University of 00:00:00 [facility] MMR 2014-10-22 Completed University of 00:00:00 [facility] MMR 2014-10-22 Completed [facility] of 00:00:00 [facility] Influenza Virus 2011-11-22 Completed Universit y of Vaccine 00:00:00 [facility] Pneumococcal 2011-11-22 Completed University o f Polysaccharide, 00:00:00 [place] [facility] PPSV23 (PNEUMOVAX) [place] Influenza Virus 2011-11-22 Completed Universit y of Vaccine 00:00:00 [facility] Pneumococcal 2011-11-22 Completed University o f Polysaccharide, 00:00:00 [place] [facility] PPSV23 (PNEUMOVAX) [place] Influenza Virus 2011-11-22 Completed Universit y of Vaccine 00:00:00 [facility] Pneumococcal 2011-11-22 Completed University o f Polysaccharide, 00:00:00 [place] [facility] PPSV23 (PNEUMOVAX) Branch Influenza Virus 2011-11-22 Completed Universit y of Vaccine 00:00:00 [facility] Pneumococcal 2011-11-22 Completed University o f Polysaccharide, 00:00:00 [place] [facility] PPSV23 (PNEUMOVAX) [place] Influenza Virus 2011-11-22 Completed Universit y of Vaccine 00:00:00 [facility] Pneumococcal 2011-11-22 Completed University o f Polysaccharide, 00:00:00 [place] [facility] PPSV23 (PNEUMOVAX) Branch Influenza Virus 2011-11-22 Completed Universit y of Vaccine 00:00:00 [facility] Pneumococcal 2011-11-22 Completed University o f Polysaccharide, 00:00:00 [place] [facility] PPSV23 (PNEUMOVAX) Branch Influenza Virus 2011-11-22 Completed Universit y of Vaccine 00:00:00 [facility] Influenza Virus 2011-11-22 Completed Universit y of Vaccine 00:00:00 [facility] Pneumococcal 2011-11-22 Completed University o f Polysaccharide, 00:00:00 [place] [facility] PPSV23 (PNEUMOVAX) Branch Pneumococcal 2011-11-22 Completed University o f Polysaccharide, 00:00:00 [place] [facility] PPSV23 (PNEUMOVAX) Branch Influenza Virus 2011-11-22 Completed Universit y of Vaccine 00:00:00 [facility] Pneumococcal 2011-11-22 Completed University o f Polysaccharide, 00:00:00 [place] [facility] PPSV23 (PNEUMOVAX) Branch Influenza Virus 2011-11-22 Completed Universit y of Vaccine 00:00:00 [facility] Pneumococcal 2011-11-22 Completed University o f Polysaccharide, 00:00:00 [place] [facility] PPSV23 (PNEUMOVAX) Branch Influenza Virus 2011-11-22 Completed Universit y of Vaccine 00:00:00 [facility] Pneumococcal 2011-11-22 Completed University o f Polysaccharide, 00:00:00 [place] [facility] PPSV23 (PNEUMOVAX) Branch Influenza Virus 2011-11-22 Completed Universit y of Vaccine 00:00:00 [facility] Pneumococcal 2011-11-22 Completed University o f Polysaccharide, 00:00:00 [place] [facility] PPSV23 (PNEUMOVAX) Branch Influenza Virus 2011-11-22 Completed Universit y of Vaccine 00:00:00 [facility] Pneumococcal 2011-11-22 Completed University o f Polysaccharide, 00:00:00 [place] [facility] PPSV23 (PNEUMOVAX) Branch Influenza Virus 2011-11-22 Completed Universit y of Vaccine 00:00:00 [facility] Pneumococcal 2011-11-22 Completed University o f Polysaccharide, 00:00:00 [place] [facility] PPSV23 (PNEUMOVAX) Branch Influenza Virus 2011-11-22 Completed Universit y of Vaccine 00:00:00 [facility] Pneumococcal 2011-11-22 Completed University o f Polysaccharide, 00:00:00 [place] [facility] PPSV23 (PNEUMOVAX) Branch Influenza Virus 2011-11-22 Completed Universit y of Vaccine 00:00:00 [facility] Pneumococcal 2011-11-22 Completed University o f Polysaccharide, 00:00:00 [facility] ical PPSV23 (PNEUMOVAX) Branch Influenza Virus 2011-11-22 Completed Universit y of Vaccine 00:00:00 [facility] Pneumococcal 2011-11-22 Completed University o f Polysaccharide, 00:00:00 [facility] PPSV23 (PNEUMOVAX) [place] MMR 2011-11-09 Completed University of 00:00:00 [facility] MMR 2011-11-09 Completed University of 00:00:00 [facility] MMR 2011-11-09 Completed University of 00:00:00 [facility] MMR 2011-11-09 Completed [facility] of 00:00:00 [facility] MMR 2011-11-09 Completed [facility] of 00:00:00 [facility] MMR 2011-11-09 Completed [facility] of 00:00:00 [facility] MMR 2011-11-09 Completed [facility] of 00:00:00 [facility] MMR 2011-11-09 Completed [facility] of 00:00:00 [facility] MMR 2011-11-09 Completed [facility] of 00:00:00 [facility] MMR 2011-11-09 Completed [facility] of 00:00:00 [facility] MMR 2011-11-09 Completed [facility] of 00:00:00 [facility] MMR 2011-11-09 Completed [facility] of 00:00:00 [facility] MMR 2011-11-09 Completed [facility] of 00:00:00 [facility] MMR 2011-11-09 Completed [facility] of 00:00:00 [facility] MMR 2011-11-09 Completed [facility] of 00:00:00 [facility] MMR 2011-11-09 Completed [facility] of 00:00:00 [facility] MMR 2011-11-09 Completed [facility] of 00:00:00 [facility] Hep B, Adol or Pedi 2004-06-19 Completed Unive rsity of Dosage 00:00:00 [facility] Hep B, Adol or Pedi 2004-06-19 Completed Unive rsity of Dosage 00:00:00 [facility] Hep B, Adol or Pedi 2004-06-19 Completed Unive rsity of Dosage 00:00:00 [facility] Hep B, Adol or Pedi 2004-06-19 Completed Unive rsity of Dosage 00:00:00 [facility] Hep B, Adol or Pedi 2004-06-19 Completed Unive rsity of Dosage 00:00:00 [place] [facility] Hep B, Adol or Pedi 2004-06-19 Completed Unive rsity of Dosage 00:00:00 [facility] Hep B, Adol or Pedi 2004-06-19 Completed Unive rsity of Dosage 00:00:00 [facility] Hep B, Adol or Pedi 2004-06-19 Completed Unive rsity of Dosage 00:00:00 [facility] Hep B, Adol or Pedi 2004-06-19 Completed Unive rsity of Dosage 00:00:00 [facility] Hep B, Adol or Pedi 2004-06-19 Completed Unive rsity of Dosage 00:00:00 [facility] Hep B, Adol or Pedi 2004-06-19 Completed Unive rsity of Dosage 00:00:00 [facility] Hep B, Adol or Pedi 2004-06-19 Completed Unive rsity of Dosage 00:00:00 [facility] Hep B, Adol or Pedi 2004-06-19 Completed Unive rsity of Dosage 00:00:00 [facility] Hep B, Adol or Pedi 2004-06-19 Completed Unive rsity of Dosage 00:00:00 [facility] Hep B, Adol or Pedi 2004-06-19 Completed Unive rsity of Dosage 00:00:00 [facility] Hep B, Adol or Pedi 2004-06-19 Completed Unive rsity of Dosage 00:00:00 [facility] Hep B, Adol or Pedi 2004-06-19 Completed Unive rsity of Dosage 00:00:00 [facility] MMR Unknown Completed [facility] Influenza Virus Unknown Completed Universit y of Vaccine [facility] Pneumococcal Unknown Completed [place] o f Polysaccharide, [facility] ica PPSV23 (PNEUMOVAX) Branch MMR Unknown Completed [facility] Vital Signs Vital Name Observation Time Observation Value Comments Source Systolic blood 2023-10-03 23:39:04 136 mm[Hg] Univer sity of pressure [facility] Diastolic blood 2023-10-03 23:39:04 88 mm[Hg] Unive rsity of pressure [facility] Heart rate 2023-10-03 23:39:04 92 /min [facility] [place] [facility] Body temperature 2023-10-03 23:39:04 37 [place]rea Univ ersity [facility] [place] [facility] Respiratory rate 2023-10-03 23:39:04 18 /min Univ ersity [facility] [place] [facility] Oxygen saturation in 2023-10-03 23:39:04 100 /min University of Arterial blood by [facility] kellie Pulse oximetry Branch Body height 2023-10-03 21:21:00 172.7 cm [facility] [place] [facility] Body weight 2023-10-03 21:21:00 91.627 kg [facility] [place] [facility] BMI 2023-10-03 21:21:00 30.71 kg/m2 [facility] [place] [facility] Systolic blood 2021-12-17 18:22:00 151 mm[Hg] Univer sity of pressure [facility] Diastolic blood 2021-12-17 18:22:00 88 mm[Hg] Unive rsity of pressure [facility] Heart rate 2021-12-17 18:22:00 110 /min [facility] [place] [facility] Body temperature 2021-12-17 18:22:00 36.33 [place] Univ [facility] [place] [facility] Respiratory rate 2021-12-17 18:22:00 18 /min Univ ers[facility] [place] [facility] Body weight 2021-12-17 18:22:00 96.616 kg [facility] [place] [facility] BMI 2021-12-17 18:22:00 32.39 kg/m2 [facility] [place] [facility] Oxygen saturation in 2021-12-17 18:22:00 99 /min University of Arterial blood by [facility] Pulse oximetry Branch Systolic blood 2021-11-28 20:35:00 147 mm[Hg] Univer sity of pressure [facility] Diastolic blood 2021-11-28 20:35:00 102 mm[Hg] Unive rsity of pressure [facility] Heart rate 2021-11-28 20:35:00 98 /min [facility] [place] [facility] Body temperature 2021-11-28 20:35:00 37.06 [place] [facility] [place] [facility] Respiratory rate 2021-11-28 20:35:00 18 /min Univ ers[facility] [place] [facility] Body weight 2021-11-28 20:35:00 96.616 kg [facility] [place] [facility] BMI 2021-11-28 20:35:00 32.39 kg/m2 [facility] [place] [facility] Oxygen saturation in 2021-11-28 20:35:00 99 /min University of Arterial blood by [facility] Pulse oximetry Branch Systolic blood 2020-11-26 19:22:00 156 mm[Hg] Univer sity of pressure [facility] Diastolic blood 2020-11-26 19:22:00 94 mm[Hg] Unive rsity of pressure [facility] Heart rate 2020-11-26 19:18:00 94 /min [facility] [place] [facility] Respiratory rate 2020-11-26 19:18:00 19 /min Univ ers[facility] [place] [facility] Body height 2020-11-26 19:18:00 172.7 cm [facility] [place] [facility] Body weight 2020-11-26 19:18:00 96.888 kg [facility] [place] [facility] BMI 2020-11-26 19:18:00 32.48 kg/m2 [facility] [place] [facility] Oxygen saturation in 2020-11-26 19:18:00 98 /min University of Arterial blood by [facility] Pulse oximetry Branch Systolic blood 2020-09-11 16:16:00 106 mm[Hg] Univer sity of pressure [facility] Diastolic blood 2020-09-11 16:16:00 70 mm[Hg] Unive rsity of pressure [facility] Heart rate 2020-09-11 16:16:00 110 /min [facility] [place] [facility] Body temperature 2020-09-11 16:16:00 36.22 [place] [facility] [place] [facility] Respiratory rate 2020-09-11 16:16:00 18 /min Univ [facility] [place] [facility] Body weight 2020-09-11 16:16:00 99.156 kg [facility] [place] [facility] BMI 2020-09-11 16:16:00 34.24 kg/m2 [facility] [place] [facility] Systolic blood 2020-09-04 16:01:00 178 mm[Hg] Univer sity of pressure [place] [facility] Diastolic blood 2020-09-04 16:01:00 105 mm[Hg] Unive rsity of pressure [place] [facility] Heart rate 2020-09-04 16:01:00 111 /min [facility]i ty of [facility] Body temperature 2020-09-04 16:01:00 36.17 [place] [address] [facility] Respiratory rate 2020-09-04 16:01:00 18 /min Univ ersity of [facility] Body height 2020-09-04 16:01:00 170.[address] [facility] Body weight 2020-09-04 16:01:[address] [facility] BMI 2020-09-04 16:01:00 33.99 kg/m2 Universi ty of [facility] Systolic blood 2020-08-21 16:42:00 137 mm[Hg] Univer sity of pressure [facility] Diastolic blood 2020-08-21 16:42:00 91 mm[Hg] Unive rsity of pressure [facility] Heart rate 2020-08-21 16:42:00 105 /min Universi ty of [facility] Body height 2020-08-21 16:42:00 172.[address] [facility] Body weight 2020-08-21 16:42:00 92.987 kg [facility] [place] [facility] BMI 2020-08-21 16:42:00 31.17 kg/m2 Universi ty of [facility] Oxygen saturation in 2020-08-21 16:42:00 99 /min [facility] Arterial blood by [facility] Pulse oximetry Branch BP Systolic 2022-05-07 15:30:00 [...] Date / Time Performing Clinician Source Performed XR FOOT 3+ VW RIGHT 2023-10-03 22:36:07 [place] ASSIGNMENT OF BENEFITS 2023-10-03 21:58:45 Doctor Unassigned, No [facility] Branch CONSENT/REFUSAL FOR 2023-10-03 21:10:10 Doctor Unassigned, No [facility] [place] [facility]AT[facility] Name Medical Branch [id number] 2021-12-23 00:00:00 VUCHR.01 [facility] XR FOOT <3 VW LEFT 2021-12-17 19:51:21 Esha Cui [facility] COMP. METABOLIC PANEL 2021-12-17 19:27:00 [id number] [place] SEDIMENTATION RATE 2021-12-17 19:27:00 Esha Cui [facility] CBC WITH DIFF 2021-12-17 19:27:00 Esha Cui [facility] NOTICE OF PRIVACY 2021-11-28 20:25:48 Doctor Unassigned, No [facility] PRACTICES [facility] Medical Branch CONSENT/REFUSAL FOR 2021-11-28 20:25:33 Doctor Unassigned, No [facility] [place] [facility] DISCLOSURE AND CONSENT, 2020-09-11 05:01:00 Doctor Unassigned, N o [facility] MEDICAL AND SURGICAL Name Medical [facility] PROCEDURES CONSENT/REFUSAL FOR 2020-08-21 16:23:25 Doctor Unassigned, No [facility] [place] [facility] Medical Branch Plan of Care Planned Activity Planned Date Details Comments Source Goal Plan of Care Note [code = 96319-1] Goal Plan of Care Note [code = 31535-9] Goal Plan of Care Note [code = 57585-7] Goal Plan of Care Note [code = 76447-2] Goal Plan of Care Note [code = 02823-4] Goal Plan of Care Note [code = 34867-7] Goal Plan of Care Note [code = 18111-5] Goal Plan of Care Note [code = 94467-3] Goal Plan of Care Note [code = 52212-3] Goal Plan of Care Note [code = 35655-4] Goal Plan of Care Note [code = 72554-3] Goal Plan of Care Note [code = 06847-8] Goal Plan of Care Note [code = 18277-5] Goal Plan of Care Note [code = 13752-6] Goal Plan of Care Note [code = 48240-9] Goal Plan of Care Note [code = 01659-7] Goal Plan of Care Note [code = 09023-8] Goal Plan of Care Note [code = 26424-8] Goal Plan of Care Note [code = 36590-1] Goal Plan of Care Note [code = 02302-8] Goal Plan of Care Note [code = 92931-0] Goal Plan of Care Note [code = 55828-7] Goal Plan of Care Note [code = 61936-6] Goal Plan of Care Note [code = 84813-5] Goal Plan of Care Note [code = 74603-2] Goal Plan of Care Note [code = 52501-9] Goal Plan of Care Note [code = 60266-2] Goal Plan of Care Note [code = 60690-2] Goal Plan of Care Note [code = 72896-5] Goal Plan of Care Note [code = 58094-7] Goal Plan of Care Note [code = 70787-9] Goal Plan of Care Note [code = 50074-0] Goal Plan of Care Note [code = 95909-1] Goal Plan of Care Note [code = 23847-5] Goal Plan of Care Note [code = 51127-4] Goal Plan of Care Note [code = 88531-3] Goal Plan of Care Note [code = 92297-4] Goal Plan of Care Note [code = 83061-8] Goal Plan of Care Note [code = 33035-1] Goal Plan of Care Note [code = 54902-3] Goal Plan of Care Note [code = 49163-1] Goal Plan of Care Note [code = 05690-0] Goal Plan of Care Note [code = 60506-3] Goal Plan of Care Note [code = 81575-8] Goal Plan of Care Note [code = 68963-4] Goal Plan of Care Note [code = 24276-3] Goal Plan of Care Note [code = 30352-4] Goal Plan of Care Note [code = 43601-5] Goal Plan of Care Note [code = 23070-8] Goal Plan of Care Note [code = 71709-1] Goal Plan of Care Note [code = 06188-3] Goal Plan of Care Note [code = 35122-3] Goal Plan of Care Note [code = 58040-1] Goal Plan of Care Note [code = 54207-8] Goal Plan of Care Note [code = 07196-6] Goal Plan of Care Note [code = 76689-6] Goal Plan of Care Note [code = 72035-6] Goal Plan of Care Note [code = 93942-9] Goal Plan of Care Note [code = 51690-4] Goal Plan of Care Note [code = 36326-1] Goal Plan of Care Note [code = 67416-6] Goal Plan of Care Note [code = 04855-3] Goal Plan of Care Note [code = 73410-3] Goal Plan of Care Note [code = 63004-1] Goal Plan of Care Note [code = 66761-4] Goal Plan of Care Note [code = 68482-3] Goal Plan of Care Note [code = 49557-0] Goal Plan of Care Note [code = 56613-3] Goal Plan of Care Note [code = 89374-8] Goal Plan of Care Note [code = 15610-4] Goal Plan of Care Note [code = 09951-3] Goal Plan of Care Note [code = 70614-6] Goal Plan of Care Note [code = 22678-9] Goal Plan of Care Note [code = 43761-0] Goal Plan of Care Note [code = 69930-3] Goal Plan of Care Note [code = 72829-0] Goal Plan of Care Note [code = 37136-6] Goal Plan of Care Note [code = 38195-6] Goal Plan of Care Note [code = 46380-4] Goal Plan of Care Note [code = 45112-2] Goal Plan of Care Note [code = 91902-5] Goal Plan of Care Note [code = 28458-2] Goal Plan of Care Note [code = 30134-6] Goal Plan of Care Note [code = 75054-3] Encounters Start End Encounter Admission Attending Care Care Encounter Source Date/Time Date/Time Type Type Clinicians Facility Department ID 2023-10-03 2023-10-03 Emergency X [facility] [id number] Univers 15:23:00 17:49:00 CHRISTOPHER it [facility] 2023-10-03 2023-10-03 Emergency [place], [facility] [id number] [facility] 15:23:00 17:49:00 Alban JERONIMO [id number] itmack franck [facility] 4.2.7.2.686 [facility] [phone] [place] [id number] [place] 2023-09-15 2023-09-15 Outpatient [id number] PRIV PRIV [id number] [facility] 00:00:00 00:00:00 diyala_S [id number] Medic al 2023-07-21 2023-07-21 Outpatient SFA SFA [id number] 023 [place] 16:08:08 16:08:08 0901 F Ori 2023-01-10 2023-01-10 Outpatient SFA SFA [id number] 023 [place] 16:09:17 16:09:17 0221 F [place] 2022-12-28 2022-12-28 Outpatient SFA SFA [id number] 023 [place] 10:32:22 10:32:22 0208 F [place] 2022-11-05 2022-11-05 Outpatient SFA SFA [id number] 022 [place] 10:07:32 10:07:32 1217 F [place] 2022-10-29 2022-10-29 Outpatient [id number] [id number] 00:00:00 00:00:00 Visit [id number] 2022-07-27 2022-07-27 Outpatient [id number] 00:00:00 00:00:00 Visit [id number] 2021-12-18 2021-12-23 Emergency EM Chemo, BREA MEDI.01 [id number] [facility] 00:48:00 15:45:00 [facility] 2021-12-17 2021-12-17 Outpatient EDDOPierce, KODI LABO [id number] [facility] 23:10:00 23:10:00 GENERIC 03 [facility] 2021-12-17 2021-12-17 Emergency [facility] [id number] Univers 12:27:00 14:57:[address] [facility] 2021-12-17 2021-12-17 [facility] [id number] Univers 12:27:00 14:57:00 Esha JERONIMO [id number] ity of [place] 4.2.7.2.686 [facility] [phone] [facility] 084 Branch 2021-11-28 2021-11-28 Emergency X DONIS, [facility] ERT [id number] Univers 14:37:00 18:08:[address] [facility] 2021-11-28 2021-11-28 Emergency [facility] [id number] Univers 14:37:00 18:08:00 Viviane JERONIMO [id number] i ty of [facility] 4.2.7.2.686 [facility] [phone] [facility] 084 Branch 2021-11-28 2021-11-28 Orders Doctor [place] [id number] Univers 00:00:00 00:00:00 Only Unassigned, KERRY 350.1.13.10 ity of [place] [facility] 4.2.7.2.686 Justin [id number] [facility] 009 Branch 2021-07-02 2021-07-02 Outpatient R FRANK SAMPSON [facility] 10 [id number] Univers 13:00:00 13:00:00 FRANK SAMPSON i ty of [facility] 2021-02-04 2021-02-04 Patient Hernán [facility] 1.2.840.114 [id number] Univers 00:00:00 00:00:00 Outreach Edgardo BYRD [id number] i ty of [facility] 4.2.7.2.686 [facility] [phone] In dical 388 Branch 2020-11-26 2020-11-26 Office Catalino [facility] 1.2.840.114 [id number] Univers 13:01:30 13:34:48 Visit Frank Jeronimo [id number] i [place] [phone] In dical nal 085 [facility] 2020-11-26 2020-11-26 Outpatient R FRANK SAMPSON [facility] 10 [id number] Univers 12:40:00 12:40:00 FRANK SAMPSON i ty of [facility] 2020-09-25 2020-09-25 Outpatient R ALYSSIA [facility] [id number] Univers 10:15:00 10:15:00 MO coleman [facility] 2020-09-11 2020-09-11 Office Mo Quintero [facility] 1.2.8 [id number] Univers 10:55:38 13:16:44 Visit Rm, Adc Surg Spec Procedure [place] 3 50.1.13.10 ity franck [place] [phone] [facility] 188 [facility] 2020-09-11 2020-09-11 Outpatient R ALYSSIA [facility] [id number] Univers 10:45:00 10:45:00 MO coleman [facility] 2020-09-11 2020-09-11 Orders Doctor [place] 1.2.840.114 [id number] Univers 00:00:00 00:00:00 Only Unassigned, KERRY 350.1.13.10 ity of [place] [facility] 4.2.7.2.686 Justin as [phone] [address] 2020-09-04 2020-09-04 Office Alyssia [facility] 1.2.840.114 [id number] Univers 10:15:26 11:26:31 Visit Mo Jeronimo 350.1.13.10 i ty of [place] [phone] In dic[address] 2020-09-04 2020-09-04 Outpatient Reba QUINTERO [facility] [id number] Univers 10:00:00 10:00:00 MO coleman [facility] 2020-08-21 2020-08-21 Office Catalino [facility] 1.2.840.114 [id number] Univers 11:24:26 12:03:34 Visit Frank Didier 350.1.13.10 i ty of [place] 4.2.7.2.686 Andres Danielle [phone] In dical nal 085 [facility] 2020-08-21 2020-08-21 Outpatient R FRANK SAMPSON [facility] 10 [id number] Univers 11:20:00 11:20:00 FRANK SAMPSON i ty of [facility] 2020-08-21 2020-08-21 Orders Doctor [place] 1.2.840.114 [id number] Univers 00:00:00 00:00:00 Only Unassigned, KERRY 350.1.13.10 ity of [place] [facility] 4.2.7.2.686 Justin as [phone] [address] Results Test Description Test Time Test Comments Results Result Comments Source ALBUMIN/CREATININE RATIO, URINE, RANDOM 2023-01-12 03:01:49 Test Item Value Reference Range Interpretation Comme nts CREATININE, URINE, CONC. (test 49.9 MG/DL NOT ESTAB code = 2072) ALBUMIN, URINE, RANDOM (test 4.1 MG/DL NOT ESTAB code = 61565) CALC ALBUMIN/CREAT, RND (test 82 MG/G <30 H Note: Albumin/Creatinine ratio code = 30873) reference inte rval reflects ADA and NKF guideli emilia. [facility] has important patho logy staff changes effecti ve 01/18/2023. New patholo gy staff will provide uninter rupted, excellent patient care an d clinical consultation. S ee URL: [email or web address] UNLESS OTHERWIS E INDICATED, ALL TESTING PERFORM ED AT CLINICAL PATHOLOGY LABOR [facility] [address] [place] [address] LABORATORY DIRE CTOR: RUDY AMOR M.D. CLIA NUMBER [id number] [place]. [id number] HEMOGLOBIN [id number] 02:57:16 Test Item Value Reference Range Interpretation Comments HEMOGLOBIN A1c (test 10.8 % 4.2-5.6 H AMERI CAN DIABETES code = 28585) ASSOCIATION IDELINES FOR HGB A1C: PREDIABETES/INC REASED [...] TESTING OR LABORATORY C ONSULTATION. COMPREHENSIVE METABOLIC [id number] 01:19:35 Test Item Value Reference Range Interpretation Comments GLUCOSE (test code = 209 MG/DL 70-99 H 2216) BUN (test code = 13 MG/DL 6-20 2207) CREATININE (test 0.56 MG/DL 0.60-1.30 L code = 221) eGFR (2020 CKD-EPI) 116 >60 (test code = 98639) ML/MIN/1.73 CALC BUN/CREAT (test 23 RATIO 6-28 code = 2235) SODIUM (test code = 142 MEQ/L 522-965 7941) POTASSIUM (test code 4.0 MEQ/L 3.5-5.4 = 2227) CHLORIDE (test code 105 MEQ/L 95-107 = 2214) CARBON DIOXIDE (test 27 MEQ/L 19-31 code = 2206) CALCIUM (test code = 9.4 MG/DL 8.5-10.5 2208) PROTEIN, TOTAL (test 7.5 G/DL 6.1-8.3 code = 2229) ALBUMIN (test code = 4.1 G/DL 3.5-5.2 [...] 2217) ALT (test code = 19 U/L 40 2218) LIPID [id number] 01:19:35 Test Item Value Reference Range Interpretation [...] MOREINFORMATION , SEE CLIENT ANNOUNCE MENT AT [email or web address] RISK RATIO LDL/HDL 1.40 RATIO <3.22 (test code = 2238) HEMOGLOBIN [id number] 03:49:54 Test Item Value Reference Range Interpretation Comments HEMOGLOBIN A1c (test 11.6 % 4.2-5.6 H AMERIC AN DIABETES code = 01187) ASSOCIATION IDELINES FOR HGB A1C: PREDIABETES/INC REASED [...] INDICATED, ALL TESTING PER FORMED ATCLINICAL PATH [facility] [place]. [address] [place] [address] LABORATORY DIRE CTOR: Savanah LINARES. CLIA NUMBER [id number] CAP ACCREDITATION N O. [id number] CBC W/AUTO DIFF WITH [id number] 03:15:27 Test Item Value Reference Range Interpretation [...] RBCS 0.00 K/UL 0.00-0.11 (test code = 70815) SOFT [id number] 16:54:00 Test Item Value Reference Range Interpretation Comments SOFT TISSUE (test code = SOFTISSUE) RUN DATE: 12/24/21 [facility] PAGE 1 RUN TIME: 1655 Specimen Inquiry RUN USER: INTERFACE PATIENT: MARCE HUBBARD LOC: GUY U #: [id number] AGE/SX: 41/F ROOM: [facility] RE12/18/21[facility] DR: Lorena Mclain MSN : 76 BED: A DIS: 12/23/21 STATUS: DIS IN TLOC: SPEC #: [id number] RECD: 12/23/21 STATUS: DARRION REJohn #: [id number] TEO: 12/23/21 [facility] DR: Grant Laguna DPSavanah ENTERED: 12/23/21 SP TYPE: SOFT MASS OTHR DR: Benjamin Ramirez MD, Padmaja Pam MD Young, Lauren E NPORDERED: GROSS COPIES TO: Benjamin Ramirez MD [address] [place], [place] [address] Amelia Herr MD [address] [place], [place] [id number] Grant Laguna DPM [address] [place] [address] Rekha Lucio LEAD SCIENTIST [address] [place], [place] [id number] PROCEDURES: GROSS (12/24/21-1132) TISSUES: LEFT FOOT - SOFT TISSUE CLINICAL HISTORY COLLECTION DATE: 12/23/21 LEFT FOOT INFECTED NEUROPATHIC ULCER FINAL DIAGNOSIS Left foot, soft tissue, removal of devitalized soft tissues: SKIN AND SUBCUTANEOUS ADIPOSE TISSUE WITH EXTENSIVE NECROSIS AND ACUTE INFLAMMATION DMW/sm CONTINUED ON NEXT PAGE RUN DATE: 12/24/21 [facility] PAGE 2 RUN TIME: 1655 Specimen Inquiry RUN USER: INTERFACE SPEC #: [id number] PATIENT: MARCE HUBBARD #[id number] (Continued) --- FINAL DIAGNOSIS (Continued) D 54699 MACROSCOPIC The specimen is received in formalin, [...] in a single cassette. GROSS PERFORMED AT [facility] [address] [place] [address] (p)[phone] MICROSCOPIC All of the stains, including any controls performed, stain appropriately. 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 [facility] [id number] 12:13:00 Test Item Value Reference Range Interpretation Comments GLUBED (test code = 174 mg/dL 74-106 H Performe d by certified GLUBED) 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 operator at [facility] [id number] 08:09:00 Test Item Value Reference Range Interpretation Comments GLUBED (test code = 122 mg/dL 74-106 H Performe d by certified GLUBED) 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 operator at [facility] [id number] 06:29:00 Test Item Value Reference Range Interpretation Comments GLUBED (test code = 147 mg/dL 74-106 H Performe d by certified GLUBED) 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 operator at [facility] [id number] 21:14:00 Test Item Value Reference Range Interpretation Comments GLUBED (test code = 233 mg/dL 74-106 H Performe d by certified GLUBED) 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 operator at [facility] [id number] 15:42:00 Test Item Value Reference Range Interpretation Comments GLUBED (test code = 136 mg/dL 74-106 H Performe d by certified GLUBED) 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 operator at [facility] [id number] 11:52:00 Test Item Value Reference Range Interpretation Comments GLUBED (test code = 208 mg/dL 74-106 H Performe d by certified GLUBED) 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 operator at [facility] [id number] 09:02:00 Test Item Value Reference Range Interpretation Comments GLUBED (test code = 186 mg/dL 74-106 H Performe d by certified GLUBED) 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 operator at [facility] - MRI LOW EXT W WO CONT [id number] 08:51:00 [facility]Name: MARCE HUBBARD : 1980 Sex: F FAX: Benjamin Ramirez MD [phone] [place]: St: ADM FAX: Amelia Herr FAX: Siddharth Heaton NP [phone] Name: MARCE HUBBARD [facility] : 1980 Age/S: 41/F [address] [facility] Unit #: [id number] Loc: V.[address] [place] [address] Phys: Siddharth Heaton NP Acct: [id number] Dis Date: Status: ADM IN PHONE #: [phone] Exam Date: 12/20/20211823 FAX #: [phone] Reason: foot diabetic ulcer, left EXAMS: CPT CODE: [id number] [place] [address] HISTORY: Diabetic foot ulcer. COMPARISON: X-ray from December 17, 2021. Location: [facility]. MRI left foot with without contrast: Diffuse edema of the entire fourth metatarsal bone with slight irregularity of the distal fourth metatarsal. It is extensively hyperintense on the T2-weighted images and hypointense on the T1-weighted images. Oblique fracture linevisible in the distal portion. 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 [facility] [id number] 16:01:00 Test Item Value Reference Range Interpretation Comments VANCOMYCIN (test code = VANCO) 8.3 UG/ML 5.0-45.0 N [id number] 15:54:00 Test Item Value Reference Range Interpretation Comments GLUBED (test code = 228 mg/dL 74-106 H Performe d by certified GLUBED) 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 operator at [facility] [id number] 12:28:00 Test Item Value Reference Range Interpretation Comments GLUBED (test code = 224 mg/dL 74-106 H Performe d by certified GLUBED) 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 operator at [facility] [id number] 08:06:00 Test Item Value Reference Range Interpretation Comments GLUBED (test code = 236 mg/dL 74-106 H Performe d by certified GLUBED) 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 operator at [facility] [id number] 06:13:00 Test Item Value Reference Range Interpretation Comments GLUBED (test code = 265 mg/dL 74-106 H Performe d by certified GLUBED) 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 operator at [facility] [id number] 20:37:00 Test Item Value Reference Range Interpretation Comments GLUBED (test code = 200 mg/dL 74-106 H Performe d by certified GLUBED) 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 [Automated mess age] The system Inbil[employer] generated this result transmit sukhjinder reference range [...] ALKP) to change in reagent. CBC W/AUTO [id number] 08:52:00 Test Item Value Reference Range Interpretation [...] DIFF REQUIRED (test code NO = MDIFF) [id number] 07:19:00 Test Item Value Reference Range Interpretation Comments GLUBED (test code = 165 mg/dL 74-106 H Performe d by certified GLUBED) jackhammer operator at [facility]2022-01-30 05:48:00 Test Item Value Reference Range Interpretation Comments GLUBED (test code = 152 mg/dL 74-106 H Performe d by certified GLUBED) jackhammer operator at [facility]2022-01-29 21:03:00 Test Item Value Reference Range Interpretation Comments GLUBED (test code = 327 mg/dL 74-106 H Performe d by certified GLUBED) jackhammer operator at [facility]2022-01-29 19:31:00 Test Item Value Reference Range Interpretation Comments GLUBED (test code = 223 mg/dL 74-106 H Performe d by certified GLUBED) jackhammer operator at [facility]2022-01-29 11:05:00 Test Item Value Reference Range Interpretation Comments GLUBED (test code = 170 mg/dL 74-106 H Performe d by certified GLUBED) jackhammer operator at [facility]2022-01-29 07:41:00 Test Item Value Reference Range Interpretation Comments GLUBED (test code = 255 mg/dL 74-106 H Performe d by certified GLUBED) jackhammer operator at [facility] [id number] 06:49:00 Test Item Value Reference Range Interpretation Comments GLUBED (test code = 257 mg/dL 74-106 H Performe d by certified GLUBED) jackhammer operator at [facility] LIPID PROFILE (CORONARY RISK)2021-12-18 03:38:00 Test Item Value Reference Range Interpretation Comments TRIGLYCERIDES (test 145 mg/dL 20-150 N code = TRIG) CHOLESTEROL (test code 156 mg/dL 0-200 N = CHOL) CHOLESTEROL/HDL RATIO 3.0 RATIO 0-4.9 N RISK A SSOCIATED WITH (test code = CHOLHDL) CHOL/H DL RATIOS: Risk Male Female1/2 AVERAGE 3.43 3.27AVERAG E 4.97 4.442X AVERAGE 9.55 7.053X AVERAGE 23.39 11.04 REFERENCE VALUE IS RELATED TO R ISK LEVELS ASRECOMM ENDED BY THE RAHEEL. HEIndigo RT, LUNG, AND BLOOD INST. HDL CHOLESTEROL [...] 2.6-3.3Borderli ne High 130-159 3.4-4.1 High 160-189 4.1-4.9 Very High >=190 >=4.9========= This LDL result is a direct measurement.=== ====== THYROID STIMULATING [id number] 03:38:00 Test Item Value Reference Range Interpretation Comments THYROID STIMULATING 0.669 uIU/mL 0.36-3.74 N TSH REFE RENCE HORMONE (test code = RANGES: EUTHYROID: TSH) 0.35 - 4.3 mIU/ mL HYPO : > 5.5 mI U/mL HYPER : < 0.35 mIU/mL [id number] 03:28:00 Test Item Value Reference Range Interpretation Comments GLYCOSYLATED HEMOGLOBIN 13.0 % HbA1 SUGG SURINDERD (HA1C) (test code = DIAGNOSI S: HbA1C GLYHGB) (%) ---- ------ Diab etic >6.4Prediabetes 5.7 - 6.4Normal <5. 7 ESTIMATED AVERAGE 326 MG/DL GLUCOSE (test code = EAG) COVID 19 INHOUSE [id number] 01:28:00 Test Item Value Reference Range Interpretation Comments COVID 19 INHOUSE AG (test code = NEGATIVE NEGATIVE DYBRH20ZDIC) URINALYSIS [id number] 22:30:00 Test Item Value Reference Range Interpretation Comments UA COLOR (test code = Light-Yellow YELLOW COLU) UA APPEARANCE (test CLEAR CLEAR IS THE S AMPLE code = APPU) FROM ER OR L&D? Y IF THE ANSWER I S NO,PLEASE DOCUMENT TWO RN SIGNATURES HERE - by [id number] 12/17/21 7687 UA GLUCOSE DIPSTICK >1000 (4+) mg/dL NEGATIVE [...] Clean Catch- XR FOOT 3 + V [id number] 22:04:00 [facility] 1980 Sex: F FAX: Zachery Cody APRN [phone] [place]: B St: REG Name: MARCE HUBBARD [facility] : 1980 Age/S: 41/F [address] [facility] Unit #: [id number] Loc: [place] [address] Phys: Zachery NinoP Acct:[id number] Dis Date: Status: REG ER PHONE #: [phone] Exam Date: 12/17/2021 2135 FAX #: [phone] Reason: foot wound EXAMS: CPT CODE: [id number] XR FOOT 3 + [place] [address]63 3 VIEWS LEFT FOOT Dictation Location: N13 CLINICAL HISTORY: Foot wound , sent by PCP for admission Technique: Oblique, AP and lateral views were obtained. Findings: There is a diffuse mild osteopenia. There is a small heel spur. There is no evidence of fracture, dislocation, or radiopaque foreign body. Soft tissues are unremarkable. No evidence of subcutaneous emphysema or obvious soft tissue swelling. IMPRESSION: No acuteabnormality by plain film. Small heel spur. at 2203 Reported and signed by: Elise Mcelroy M.D. CC: Zachery Nino Technologist: VIVI KWAN Trnscrd Date/Time/By: 12/17/2021 (2203) : By: Esteban Orig Print D/T: S: 12/17/2021 (2206) PAGE 1 Signed ReportBASIC METABOLIC [id number] 22:02:00 Test Item Value Reference Range Interpretation [...] Modifi ed MDRD (test code = GFR) formula.[facility] kidney disease is defined as eith er kidney damageor GFR <60 mL/min/1.73 m2 for >3 months. [Automated mess age] The system Inbilin generated this result transmitted ref erence range: [...] 9.2 mg/dL 8.5-10.1 N CA) HEPATIC FUNCTION [id number] 22:02:00 Test Item Value Reference Range Interpretation [...] range due ALKP) to change in reagent. [id number] 22:02:00 Test Item Value Reference Range Interpretation Comments TROPONIN-HS (test <4.0 pg/mL 0-45 N CAUTION: U nits of the code = TROPI) current test m ethodology (pg/mL)differ f rom the prior test meth odology (ng/mL) by a fa ctorof 1000. LACTIC [id number] 22:02:00 Test Item Value Reference Range Interpretation Comments LACTIC ACID (test code = LACT) 0.8 mmol/L 0.4-1.9 N CBC W/AUTO [id number] 21:45:00 Test Item Value Reference Range Interpretation [...] NO = MDIFF) - XR CHEST 1 [id number] 21:07:00 [facility] ([facility])Name: MARCE HUBBARD : 1980 Sex: F FAX: Zachery Cody APRN [phone] [place]: St: REG Name: MARCE HUBBARD [facility] : 1980 Age/S: 41/F [address] [facility] Unit #: [id number] Loc: [place] [address] Phys: Zachery Nino Acct:[id number] Dis Date: Status: REG ER PHONE #: [phone] Exam Date: 12/17/20212045 FAX #: [phone] Reason: CODE SEPSIS EXAMS: CPT CODE: [id number] XR CHEST 1 V 30376 EXAM: Chest x-ray, one view;INFORMATION: Code sepsis; FINDINGS: There are fibrotic changes in the midlung rizzo bilaterally. Noevidence of acute infiltrate; no edema; no effusions; no pneumothorax. Unremarkable cardiac mediastinal silhouette. IMPRESSION: 1. Bilateral pulmonary scarring. 2. No evidence of acute cardiothoracic abnormalities. Location code: GW t 2106 Reported and signed by: Petar Duarte M.D. CC: Zachery Nino Technologist: RT JAH(R) Trnscrd Date/Time/By: 12/17/2021 (2106) : By: Shaka Orig Print D/T: S: 12/17/2021 (2109) PAGE 1 Signed ReportSEDIMENTATION [id number] 20:18:57 Test Item Value Reference Range Interpretation Comments ESR (test code = See_Comment H [Automated message] [id number]) The system Inbilin generated this result transmitted ref erence range: 0 - 20 m m/HR. The reference r katrin was not used to interpret this result as normal/abnor mal. Lab Interpretation (test Abnormal code = 82578-9) [facility]. METABOLIC PANEL (70494)2021-12-17 19:53:54 Test Item Value Reference Range Interpretation Comments NA (test code = 134 mmol/L 135-145 L 8171177983) K (test code = 4.0 mmol/L 3.5-5.0 3504854146) CL (test code = 100 mmol/L 98-108 2412938813) CO2 TOTAL (test code = 30 mmol/L 23-31 3301982672) AGAP (test code = 2-16 5946495991) BUN (test code = 16 mg/dL 7-23 5499704508) GLUCOSE (test code = 429 mg/dL 70-110 H 8003574803) CREATININE (test code = 0.52 mg/dL 0.50-1.04 0244297969) TOTAL BILI (test code = 0.5 mg/dL 0.1-1.1 6031238384) CALCIUM (test code = 8.8 mg/dL 8.6-10.6 2831118256) T PROTEIN (test code = 7.3 g/dL 6.3-8.2 4827294512) ALBUMIN (test code = 4.1 g/dL 3.5-5.0 9606181567) ALK PHOS (test code = 212 U/L 34-122 H 2338638816) ALTv (test code = 23 U/L 5-35 1742-6) AST(SGOT) (test code = 26 U/L 13-40 1728607851) eGFR (test code = mL/min/1.73m2 1105276065) JOHANNE (test code = JOHANNE) Association of [...] tests). Lab Interpretation Abnormal (test code = 14467-5) [facility] WITH [id number] 19:38:57 Test Item Value Reference Range Interpretation Comments WBC (test code = See_Comment [Automated 1972-2) message] The sy stem which generated this result transmitted reference range : 4.30 - 11.10 10*3/?L. The reference range was not used to interpret this result as normal/abnormal . RBC (test code = See_Comment [Automated 176-2) message] The sy stem which generated this [...] (test code = 37.5 fL 39.0-49.9 L 59067-3) RDW-CV (test code = 11.9 % 12.0-15.5 L 788-0) PLT (test code = See_Comment [Automated 777-3) message] The sy stem which generated this result transmitted reference range : 166 - 358 10*3/ ?L. The reference r katrin was not used to interpret this result as normal/abnormal . MPV (test code = 12.4 fL 9.5-12.9 75215-6) NRBC/100 WBC (test See_Comment [Automat ed code = 6823670860) message] The system which generated this result transmitted reference range : 0.0 - 10.0 /100 WBCs. The refer ence range was not u sed to interpret th is result as normal/abnormal . NRBC x10^3 (test code <0.01 See_Comment [Auto mated = 5282987897) message] The s ystem which generated this result transmitted reference range : 10*3/?L. The reference range was not used to interpret this result as normal/abnormal . GRAN MAT (NEUT) % 56.9 % (test code = 770-8) IMM GRAN % (test code 0.70 % = 4335593027) LYMPH % (test code = 31.8 % 736-9) MONO % (test code = 8.5 % 5905-5) EOS % (test code = 1.6 % 713-8) BASO % (test code = 0.5 % 706-2) GRAN MAT x10^3(ANC) 4.29 10*3/uL 1.88-7.09 (test code = 6742023989) IMM GRAN x10^3 (test 0.05 10*3/uL 0.00-0.06 code = 5198736627) LYMPH x10^3 (test code 2.40 10*3/uL 1.32-3.29 = 731-0) MONO x10^3 (test code 0.64 10*3/uL 0.33-0.92 = 742-7) EOS x10^3 (test code = 0.12 10*3/uL 0.03-0.39 711-2) BASO x10^3 (test code 0.04 10*3/uL 0.01-0.07 = 704-7) Lab Interpretation Abnormal (test code = 79609-7) [facility] [id number] 00:00:00 Test Item Value Reference Range Interpretation Comments HEMOGLOBIN A1c (test code = 12656) 13.5 % HEMOGLOBIN [id number] 00:00:00 Test Item Value Reference Range Interpretation Comments HEMOGLOBIN A1c (test code = 11788) 13.5 % HEMOGLOBIN [id number] 00:00:00 Test Item Value Reference Range Interpretation Comments HEMOGLOBIN A1c (test code = 16852) 13.5 % HEMOGLOBIN [id number] 00:00:00 Test Item Value Reference Range Interpretation Comments HEMOGLOBIN A1c (test code = 57771) 13.5 % HEMOGLOBIN [id number] 00:00:00 Test Item Value Reference Range Interpretation Comments HEMOGLOBIN A1c (test code = 75557) 13.5 % HEMOGLOBIN [id number] 00:00:00 Test Item Value Reference Range Interpretation Comments HEMOGLOBIN A1c (test code = 61280) 13.5 % CULTURE, [id number] 00:00:00 Test Item Value Reference Range Interpretation Comments CULTURE, URINE (test SPECIMEN NUMBER: code = 40436) [id number] CULTURE, [id number] 00:00:00 Test Item Value Reference Range Interpretation Comments CULTURE, URINE (test SPECIMEN NUMBER: code = 00791) [id number] CULTURE, [id number] 00:00:00 Test Item Value Reference Range Interpretation Comments CULTURE, URINE (test SPECIMEN NUMBER: code = 93974) [id number] CULTURE, [id number] 00:00:00 Test Item Value Reference Range Interpretation Comments CULTURE, URINE (test SPECIMEN NUMBER: code = 46140) [id number] SARS-CoV-2 (COVID-19) by RT-PCR (HIGH RISK)2020-06-25 00:00:00 Test Item Value Reference Range Interpretation Comments SARS-CoV-2 INTERPRETATION (test POSITIVE code = 67290) SOURCE (test code = 40062) NOT SPECIFIED SARS-CoV-2 (COVID-19) by RT-PCR (HIGH RISK)2020-06-25 00:00:00 Test Item Value Reference Range Interpretation Comments SARS-CoV-2 INTERPRETATION (test POSITIVE code = 08090) SOURCE (test code = 45030) NOT SPECIFIED SARS-CoV-2 (COVID-19) by RT-PCR (HIGH RISK)2020-06-25 00:00:00 Test Item Value Reference Range Interpretation Comments SARS-CoV-2 INTERPRETATION (test POSITIVE code = 73889) SOURCE (test code = 07718) NOT SPECIFIED SARS-CoV-2 (COVID-19) by RT-PCR (HIGH RISK)2020-06-25 00:00:00 Test Item Value Reference Range Interpretation Comments SARS-CoV-2 INTERPRETATION (test POSITIVE code = 81680) SOURCE (test code = 47813) NOT SPECIFIED CULTURE, [id number] 00:00:00 Test Item Value Reference Range Interpretation Comments CULTURE, URINE (test SPECIMEN NUMBER: code = 57161) [id number] CULTURE, [id number] 00:00:00 Test Item Value Reference Range Interpretation Comments CULTURE, URINE (test SPECIMEN NUMBER: code = 57690) [id number] CULTURE, [id number] 00:00:00 Test Item Value Reference Range Interpretation Comments CULTURE, URINE (test SPECIMEN NUMBER: code = 51150) [id number] CULTURE, [id number] 00:00:00 Test Item Value Reference Range Interpretation Comments CULTURE, URINE (test SPECIMEN NUMBER: code = 83782) [id number] MICROALBUMIN/CREATININE, RANDOM AND [id number] 00:00:00 Test Item Value Reference Range Interpretation Comments CREATININE, URINE, CONC. (test 63.4 MG/DL code = 2) ALBUMIN, URINE, RANDOM (test code 1.0 MG/DL = 60183) CALC ALBUMIN/CREAT, RND (test code 16 MG/G = 49366) MICROALBUMIN/CREATININE, RANDOM AND [id number] 00:00:00 Test Item Value Reference Range Interpretation Comments CREATININE, URINE, CONC. (test 63.4 MG/DL code = 2) ALBUMIN, URINE, RANDOM (test code 1.0 MG/DL = 67872) CALC ALBUMIN/CREAT, RND (test code 16 MG/G = 97618) MICROALBUMIN/CREATININE, RANDOM AND [id number] 00:00:00 Test Item Value Reference Range Interpretation Comments CREATININE, URINE, CONC. (test 63.4 MG/DL code = 2072) ALBUMIN, URINE, RANDOM (test code 1.0 MG/DL = 84952) CALC ALBUMIN/CREAT, RND (test code 16 MG/G = 70565) MICROALBUMIN/CREATININE, RANDOM AND [id number] 00:00:00 Test Item Value Reference Range Interpretation Comments CREATININE, URINE, CONC. (test 63.4 MG/DL code = 2072) ALBUMIN, URINE, RANDOM (test code 1.0 MG/DL = 83998) CALC ALBUMIN/CREAT, RND (test code 16 MG/G = 91632) COMPREHENSIVE METABOLIC [id number] 00:00:00 Test Item Value Reference Range Interpretation Comments GLUCOSE (test code = 2217) 292 MG/DL BUN (test code = 2208) 10 MG/DL CREATININE (test code = 2214) 0.41 MG/DL eGFR AMER. (test code 149 ML/MIN/1.73 = 93799) eGFR NON- AMER. (test 128 ML/MIN/1.73 code = 44453) CALC BUN/CREAT (test code = 24 RATIO 2235) SODIUM (test code = 2231) 136 MEQ/L POTASSIUM (test code = 2228) 4.0 MEQ/L CHLORIDE (test code = 2215) 99 MEQ/L CARBON DIOXIDE (test code = 26 MEQ/L 2205) CALCIUM (test code = 2209) [...] code = 2219) 19 U/L COMPREHENSIVE METABOLIC [id number] 00:00:00 Test Item Value Reference Range Interpretation Comments GLUCOSE (test code = 2217) 292 MG/DL BUN (test code = 2208) 10 MG/DL CREATININE (test code = 2214) 0.41 MG/DL eGFR AMER. (test code 149 ML/MIN/1.73 = 60535) eGFR NON- AMER. (test 128 ML/MIN/1.73 code = 57471) CALC BUN/CREAT (test code = 24 RATIO 2235) SODIUM (test code = 2231) 136 MEQ/L POTASSIUM (test code = 2228) 4.0 MEQ/L CHLORIDE (test code = 2215) 99 MEQ/L CARBON DIOXIDE (test code = 26 MEQ/L 2205) CALCIUM (test code = 2209) [...] (test code = 2219) 19 U/L LIPID [id number] 00:00:00 Test Item Value Reference Range Interpretation Comments CHOLESTEROL (test code = 2210) 169 MG/DL TRIGLYCERIDES (test code = 2232) 100 MG/DL HDL CHOLESTEROL (test code = 2220) 75 MG/DL CALC LDL CHOL (test code = 2237) 75 MG/DL RISK RATIO LDL/HDL (test code = 1.00 RATIO 2238) LIPID [id number] 00:00:00 Test Item Value Reference Range Interpretation Comments CHOLESTEROL (test code = 2210) 169 MG/DL TRIGLYCERIDES (test code = 2232) 100 MG/DL HDL CHOLESTEROL (test code = 2220) 75 MG/DL CALC LDL CHOL (test code = 2237) 75 MG/DL RISK RATIO LDL/HDL (test code = 1.00 RATIO 2238) COMPREHENSIVE METABOLIC [id number] 00:00:00 Test Item Value Reference Range Interpretation Comments GLUCOSE (test code = 2217) 292 MG/DL BUN (test code = 2208) 10 MG/DL CREATININE (test code = 2214) 0.41 MG/DL eGFR AMER. (test code 149 ML/MIN/1.73 = 07982) eGFR NON- AMER. (test 128 ML/MIN/1.73 code = 15275) CALC BUN/CREAT (test code = 24 RATIO 2235) SODIUM (test code = 2231) 136 MEQ/L POTASSIUM (test code = 2228) 4.0 MEQ/L CHLORIDE (test code = 2215) 99 MEQ/L CARBON DIOXIDE (test code = 26 MEQ/L 2205) CALCIUM (test code = 2209) [...] code = 2219) 19 U/L COMPREHENSIVE METABOLIC [id number] 00:00:00 Test Item Value Reference Range Interpretation Comments GLUCOSE (test code = 2217) 292 MG/DL BUN (test code = 2208) 10 MG/DL CREATININE (test code = 2214) 0.41 MG/DL eGFR AMER. (test code 149 ML/MIN/1.73 = 68305) eGFR NON- AMER. (test 128 ML/MIN/1.73 code = 83878) CALC BUN/CREAT (test code = 24 RATIO 2235) SODIUM (test code = 2231) 136 MEQ/L POTASSIUM (test code = 2228) 4.0 MEQ/L CHLORIDE (test code = 2215) 99 MEQ/L CARBON DIOXIDE (test code = 26 MEQ/L 2205) CALCIUM (test code = 2209) 9.1 MG/DL PROTEIN, TOTAL (test code = 7.3 G/DL 2228) ALBUMIN (test code = 2201) 4.2 G/DL CALC GLOBULIN (test code = 3.1 G/DL 2240) CALC A/G RATIO (test code = 1.4 RATIO 2234) BILIRUBIN, TOTAL (test code = 0.6 MG/DL 7) ALKALINE PHOSPHATASE (test 106 U/L code = 2204) AST (test code = 2218) 13 U/L ALT (test code = 2219) 19 U/L LIPID [id number] 00:00:00 Test Item Value Reference Range Interpretation Comments CHOLESTEROL (test code = 2210) 169 MG/DL TRIGLYCERIDES (test code = 2232) 100 MG/DL HDL CHOLESTEROL (test code = 2220) 75 MG/DL CALC LDL CHOL (test code = 2237) 75 MG/DL RISK RATIO LDL/HDL (test code = 1.00 RATIO 2238) LIPID [id number] 00:00:00 Test Item Value Reference Range Interpretation Comments CHOLESTEROL (test code = 2210) 169 MG/DL TRIGLYCERIDES (test code = 2232) 100 MG/DL HDL CHOLESTEROL (test code = 2220) 75 MG/DL CALC LDL CHOL (test code = 2237) 75 MG/DL RISK RATIO LDL/HDL (test code = 1.00 RATIO 2238) CBC W/AUTO [id number] 00:00:00 Test Item Value Reference Range Interpretation [...] code = 1015) 198 K/UL CBC W/AUTO [id number] 00:00:00 Test Item Value Reference Range Interpretation [...] code = 1015) 198 K/UL CBC W/AUTO [id number] 00:00:00 Test Item Value Reference Range Interpretation [...] (test code = 1015) 198 K/UL HEMOGLOBIN [id number] 00:00:00 Test Item Value Reference Range Interpretation Comments HEMOGLOBIN A1c (test code = 43962) 11.8 % HEMOGLOBIN [id number] 00:00:00 Test Item Value Reference Range Interpretation Comments HEMOGLOBIN A1c (test code = 77672) 11.8 % HEMOGLOBIN [id number] 00:00:00 Test Item Value Reference Range Interpretation Comments HEMOGLOBIN A1c (test code = 43631) 11.8 % CBC W/AUTO [id number] 00:00:00 Test Item Value Reference Range Interpretation [...] code = 1015) 198 K/UL CBC W/AUTO [id number] 00:00:00 Test Item Value Reference Range Interpretation [...] code = 1015) 198 K/UL CBC W/AUTO [id number] 00:00:00 Test Item Value Reference Range Interpretation [...] (test code = 1015) 198 K/UL HEMOGLOBIN [id number] 00:00:00 Test Item Value Reference Range Interpretation Comments HEMOGLOBIN A1c (test code = 50598) 11.8 % HEMOGLOBIN [id number] 00:00:00 Test Item Value Reference Range Interpretation Comments HEMOGLOBIN A1c (test code = 43493) 11.8 % HEMOGLOBIN [id number] 00:00:00 Test Item Value Reference Range Interpretation Comments HEMOGLOBIN A1c (test code = 07489) 11.8 % HEMOGLOBIN [id number] 00:00:00 Test Item Value Reference Range Interpretation Comments HEMOGLOBIN A1c (test code = 96163) 11.4 % HEMOGLOBIN [id number] 00:00:00 Test Item Value Reference Range Interpretation Comments HEMOGLOBIN A1c (test code = 64996) 11.4 % HEMOGLOBIN [id number] 00:00:00 Test Item Value Reference Range Interpretation Comments HEMOGLOBIN A1c (test code = 81572) 11.4 % COMPREHENSIVE METABOLIC [id number] 00:00:00 Test Item Value Reference Range Interpretation Comments GLUCOSE (test code = 2217) 349 MG/DL BUN (test code = 2208) 12 MG/DL CREATININE (test code = 2214) 0.63 MG/DL eGFR AMER. (test code 132 ML/MIN/1.73 = 52071) eGFR NON- AMER. (test 114 ML/MIN/1.73 code = 80268) CALC BUN/CREAT (test code = 19 RATIO [...] code = 2219) 14 U/L COMPREHENSIVE METABOLIC [id number] 00:00:00 Test Item Value Reference Range Interpretation Comments GLUCOSE (test code = 2217) 349 MG/DL BUN (test code = 2208) 12 MG/DL CREATININE (test code = 2214) 0.63 MG/DL eGFR AMER. (test code 132 ML/MIN/1.73 = 05285) eGFR NON- AMER. (test 114 ML/MIN/1.73 code = 74387) CALC BUN/CREAT (test code = 19 RATIO 2235) SODIUM (test code = 2231) 133 MEQ/L POTASSIUM (test code = 2228) 3.7 MEQ/L CHLORIDE (test code = 2215) 95 MEQ/L CARBON DIOXIDE (test code = 22 MEQ/L 220) CALCIUM (test code = 2209) 9.1 MG/DL [...] (test code = 2219) 14 U/L LIPID [id number] 00:00:00 Test Item Value Reference Range Interpretation Comments CHOLESTEROL (test code = 2210) 185 MG/DL TRIGLYCERIDES (test code = 2232) 168 MG/DL HDL CHOLESTEROL (test code = 2220) 74 MG/DL CALC LDL CHOL (test code = 2237) 77 MG/DL RISK RATIO LDL/HDL (test code = 1.05 RATIO 2238) LIPID [id number] 00:00:00 Test Item Value Reference Range Interpretation [...] code = 2821) 0.348 UIU/ML CBC W/AUTO [id number] 00:00:00 Test Item Value Reference Range Interpretation [...] code = 1015) 241 K/UL CBC W/AUTO [id number] 00:00:00 Test Item Value Reference Range Interpretation [...] code = 1015) 241 K/UL CBC W/AUTO [id number] 00:00:00 Test Item Value Reference Range Interpretation [...] = 1015) 241 K/UL MICROALBUMIN/CREATININE, RANDOM AND [id number] 00:00:00 Test Item Value Reference Range Interpretation Comments CREATININE, URINE, CONC. (test 54.0 MG/DL code = 2072) MICROALBUMIN, RANDOM (test code = 0.4 MG/DL 32657) CALC MICROALB/CREAT RND (test code 7 MG/G = 44612) MICROALBUMIN/CREATININE, RANDOM AND [id number] 00:00:00 Test Item Value Reference Range Interpretation Comments CREATININE, URINE, CONC. (test 54.0 MG/DL code = 2072) MICROALBUMIN, RANDOM (test code = 0.4 MG/DL 18833) CALC MICROALB/CREAT RND (test code 7 MG/G = 93686) HEMOGLOBIN [id number] 00:00:00 Test Item Value Reference Range Interpretation Comments HEMOGLOBIN A1c (test code = 93462) 11.4 % HEMOGLOBIN [id number] 00:00:00 Test Item Value Reference Range Interpretation Comments HEMOGLOBIN A1c (test code = 65626) 11.4 % HEMOGLOBIN [id number] 00:00:00 Test Item Value Reference Range Interpretation Comments HEMOGLOBIN A1c (test code = 61314) 11.4 % COMPREHENSIVE METABOLIC [id number] 00:00:00 Test Item Value Reference Range Interpretation Comments GLUCOSE (test code = 2217) 349 MG/DL BUN (test code = 2208) 12 MG/DL CREATININE (test code = 2214) 0.63 MG/DL eGFR AMER. (test code 132 ML/MIN/1.73 = 22255) eGFR NON- AMER. (test 114 ML/MIN/1.73 code = 85718) CALC BUN/CREAT (test code = 19 RATIO [...] code = 2219) 14 U/L COMPREHENSIVE METABOLIC [id number] 00:00:00 Test Item Value Reference Range Interpretation Comments GLUCOSE (test code = 2217) 349 MG/DL BUN (test code = 2208) 12 MG/DL CREATININE (test code = 2214) 0.63 MG/DL eGFR AMER. (test code 132 ML/MIN/1.73 = 28413) eGFR NON- AMER. (test 114 ML/MIN/1.73 code = 96577) CALC BUN/CREAT (test code = 19 RATIO [...] (test code = 2219) 14 U/L LIPID [id number] 00:00:00 Test Item Value Reference Range Interpretation Comments CHOLESTEROL (test code = 2210) 185 MG/DL TRIGLYCERIDES (test code = 2232) 168 MG/DL HDL CHOLESTEROL (test code = 2220) 74 MG/DL CALC LDL CHOL (test code = 2237) 77 MG/DL RISK RATIO LDL/HDL (test code = 1.05 RATIO 2238) LIPID [id number] 00:00:00 Test Item Value Reference Range Interpretation [...] code = 2821) 0.348 UIU/ML CBC W/AUTO [id number] 00:00:00 Test Item Value Reference Range Interpretation [...] code = 1015) 241 K/UL CBC W/AUTO [id number] 00:00:00 Test Item Value Reference Range Interpretation [...] code = 1015) 241 K/UL CBC W/AUTO [id number] 00:00:00 Test Item Value Reference Range Interpretation [...] = 1015) 241 K/UL MICROALBUMIN/CREATININE, RANDOM AND [id number] 00:00:00 Test Item Value Reference Range Interpretation Comments CREATININE, URINE, CONC. (test 54.0 MG/DL code = 2072) MICROALBUMIN, RANDOM (test code = 0.4 MG/DL 69346) CALC MICROALB/CREAT RND (test code 7 MG/G = 16099) MICROALBUMIN/CREATININE, RANDOM AND [id number] 00:00:00 Test Item Value Reference Range Interpretation Comments CREATININE, URINE, CONC. (test 54.0 MG/DL code = 2072) MICROALBUMIN, RANDOM (test code = 0.4 MG/DL 34864) CALC MICROALB/CREAT RND (test code 7 MG/G = 47611) HEMOGLOBIN [id number] 00:00:00 Test Item Value Reference Range Interpretation Comments HEMOGLOBIN A1c (test code = 32032) 11.8 % HEMOGLOBIN [id number] 00:00:00 Test Item Value Reference Range Interpretation Comments HEMOGLOBIN A1c (test code = 57804) 11.8 % HEMOGLOBIN [id number] 00:00:00 Test Item Value Reference Range Interpretation Comments HEMOGLOBIN A1c (test code = 84273) 11.8 % CBC W/AUTO [id number] 00:00:00 Test Item Value Reference Range Interpretation [...] code = 1015) 253 K/UL CBC W/AUTO [id number] 00:00:00 Test Item Value Reference Range Interpretation [...] code = 1015) 253 K/UL CBC W/AUTO [id number] 00:00:00 Test Item Value Reference Range Interpretation [...] code = 1015) 253 K/UL COMPREHENSIVE METABOLIC [id number] 00:00:00 Test Item Value Reference Range Interpretation Comments GLUCOSE (test code = 2217) 289 MG/DL BUN (test code = 2208) 15 MG/DL CREATININE (test code = 2214) 0.54 MG/DL eGFR AMER. (test code 140 ML/MIN/1.73 = 16518) eGFR NON- AMER. (test 121 ML/MIN/1.73 code = 17377) CALC BUN/CREAT (test code = 28 RATIO [...] code = 2219) 23 U/L COMPREHENSIVE METABOLIC [id number] 00:00:00 Test Item Value Reference Range Interpretation Comments GLUCOSE (test code = 2217) 289 MG/DL BUN (test code = 2208) 15 MG/DL CREATININE (test code = 2214) 0.54 MG/DL eGFR AMER. (test code 140 ML/MIN/1.73 = 83394) eGFR NON- AMER. (test 121 ML/MIN/1.73 code = 65096) CALC BUN/CREAT (test code = 28 RATIO [...] (test code = 2219) 23 U/L LIPID [id number] 00:00:00 Test Item Value Reference Range Interpretation Comments CHOLESTEROL (test code = 2210) 169 MG/DL TRIGLYCERIDES (test code = 2232) 144 MG/DL HDL CHOLESTEROL (test code = 2220) 64 MG/DL CALC LDL CHOL (test code = 2237) 76 MG/DL RISK RATIO LDL/HDL (test code = 1.19 RATIO 2238) LIPID [id number] 00:00:00 Test Item Value Reference Range Interpretation [...] (test code = 2821) 0.4 UIU/ML HEMOGLOBIN [id number] 00:00:00 Test Item Value Reference Range Interpretation Comments HEMOGLOBIN A1c (test code = 26988) 11.8 % HEMOGLOBIN [id number] 00:00:00 Test Item Value Reference Range Interpretation Comments HEMOGLOBIN A1c (test code = 26844) 11.8 % HEMOGLOBIN [id number] 00:00:00 Test Item Value Reference Range Interpretation Comments HEMOGLOBIN A1c (test code = 21831) 11.8 % CBC W/AUTO [id number] 00:00:00 Test Item Value Reference Range Interpretation [...] code = 1015) 253 K/UL CBC W/AUTO [id number] 00:00:00 Test Item Value Reference Range Interpretation [...] code = 1015) 253 K/UL CBC W/AUTO [id number] 00:00:00 Test Item Value Reference Range Interpretation [...] code = 1015) 253 K/UL COMPREHENSIVE METABOLIC [id number] 00:00:00 Test Item Value Reference Range Interpretation Comments GLUCOSE (test code = 2217) 289 MG/DL BUN (test code = 2208) 15 MG/DL CREATININE (test code = 2214) 0.54 MG/DL eGFR AMER. (test code 140 ML/MIN/1.73 = 29453) eGFR NON- AMER. (test 121 ML/MIN/1.73 code = 80480) CALC BUN/CREAT (test code = 28 RATIO [...] code = 2219) 23 U/L COMPREHENSIVE METABOLIC [id number] 00:00:00 Test Item Value Reference Range Interpretation Comments GLUCOSE (test code = 2217) 289 MG/DL BUN (test code = 2208) 15 MG/DL CREATININE (test code = 2214) 0.54 MG/DL eGFR AMER. (test code 140 ML/MIN/1.73 = 09770) eGFR NON- AMER. (test 121 ML/MIN/1.73 code = 16275) CALC BUN/CREAT (test code = 28 RATIO [...] CALC GLOBULIN (test code = 3.5 G/DL 2239) CALC A/G RATIO (test code = 1.2 RATIO 2234) BILIRUBIN, TOTAL (test code = 0.3 MG/DL 2206) ALKALINE PHOSPHATASE (test 104 U/L code = 2204) AST (test code = 2218) 28 U/L ALT (test code = 2219) 23 U/L LIPID [id number] 00:00:00 Test Item Value Reference Range Interpretation Comments CHOLESTEROL (test code = 2210) 169 MG/DL TRIGLYCERIDES (test code = 2232) 144 MG/DL HDL CHOLESTEROL (test code = 2220) 64 MG/DL CALC LDL CHOL (test code = 2237) 76 MG/DL RISK RATIO LDL/HDL (test code = 1.19 RATIO 2238) LIPID [id number] 00:00:00 Test Item Value Reference Range Interpretation [...]
[2023-10-07 23:41] LABS: Absolute Lymphocytes (CBC) 1.7 K/uL (0.7-4.9); Hematocrit 34.2 % (36.0-45.0); Lymphocytes % 15.1 % (15.3-44.8); MCV 85.4 fL (80-100); MPV 9.1 fL (7.6-11.3); Platelets 263 thou/uL (152-406); RBC Red Blood Cell Count 4.01 M/uL (3.86-4.86)
[2023-10-07 23:49] LABS: Protime INR 1.17
[2023-10-07 23:59] LABS: Albumin 2.5 g/dL (3.4-5.0); Bilirubin Total 0.3 mg/dL (0.2-1.0); Potassium 3.7 mEq/L (3.5-5.1); Protein, Total 7.7 g/dL (6.4-8.2)
[2023-10-08] MEDS ORDERED: VANCOMYCIN 1 GM/VIAL ONE (00:13)
[2023-10-08] MEDS ORDERED: ACETAMINOPHEN 500 MG TAB ONE (00:13)
[2023-10-08] MEDS ORDERED: NA CHLORIDE 0.9% 250 ML ONE (00:14)
[2023-10-08] MEDS ORDERED: VANCOMYCIN 500 MG/VIAL ONE (00:14)
[2023-10-08] MEDS ORDERED: NA CHLORIDE 0.9% 100 ML ONE (00:14)
[2023-10-08] MEDS ORDERED: PIPERACIL/TAZO 3.375 GM VIAL IV ONE (00:15)
--- NOTE | 2023-10-08 01:01 | ER ---
Nurse's Notes [facility] Name: Glenna Finney Age: 42 yrs Sex: Female : 1980 Arrival Date: 10/07/2023 Time: 22:36 Bed 12 Private MD: Diagnosis: Cellulitis of right toe Presentation: 10/07 22:51 Chief complaint: Patient states: she has an ulcer on her right foot that she has had ap3 for approx 2 weeks. [facility], and she started amoxicillin. patient reports she has since developed a fever and the wound has gotten worse. Coronavirus screen: At this time, the client does not indicate any symptoms associated with coronavirus-19. Ebola Screen: No symptoms or risks identified at this time. Initial Sepsis Screen: Does the patient meet any 2 criteria? HR > 90 bpm. Does the patient have a suspected source of infection? Yes: Skin breakdown/wound. Risk Assessment: Do you want to hurt yourself or someone else? Patient reports no desire to harm self or others. Onset of symptoms was September 23, 2023. 22:51 Method Of Arrival: Wheelchair ap3 22:51 Acuity: GIGI 3 ap3 Triage Assessment: 22:53 General: Appears in no apparent distress. Behavior is calm, cooperative, appropriate ap3 for age. Pain: Complains of pain in right foot Pain began gradually. Pain: Pain currently is 7 out of 10 on a pain scale. Neuro: Level of Consciousness is awake, alert, obeys commands, Oriented to person, place, time, situation, Appropriate for age. Cardiovascular: Patient's skin is warm and dry. Respiratory: Airway is patent Respiratory effort is even, unlabored, Respiratory pattern is regular, symmetrical. Derm: Reports wound on right foot. Historical: - Allergies: 22:52 No Known Allergies; ap3 - PMHx: 22:52 Diabetes - NIDDM; Hypertension; ap3 - Immunization history:: Client reports receiving the 2nd dose of the Covid vaccine, Flu vaccine is not up to date. - Social history:: Smoking status: Patient denies any tobacco usage or history of. Screenin:53 Abuse screen: Denies threats or abuse. Nutritional screening: No deficits noted. ap3 Tuberculosis screening: No symptoms or risk factors identified. 10/08 00:36 [facility] ED Fall Risk Assessment (Adult) History of falling in the last 3 months, rv including since admission Yes- fall prone (multiple falls) (3 pts) Score/Fall Risk Level 3 or more points = High Risk Oriented to surroundings, Maintained a safe environment, Educated pt \T\ family on fall prevention, incl call for assistance when getting out of bed, Assessed \T\ reinforced patient's understanding of fall precautions. Assessment: 00:36 Reassessment: SEE TRIAGE NOTES. rv Vital Signs: 10/07 22:51 BP 149 / 82; Pulse 99; Resp 18; Temp 98.2; Pulse Ox 100% ; Weight 92.53 kg; ap3 10/08 00:51 Pulse 88; ec2 02:12 BP 136 / 79; Pulse 78; Resp 17; Temp 98; Pulse Ox 99% ; rv [place] Coma Score: 02:12 Eye Response: spontaneous(4). Motor Response: obeys commands(6). Verbal Response: rv oriented(5). Total: 15. ED Course: 10/07 22:38 Patient arrived in ED. jj6 22:43 Maury Rubalcava MD is Attending Physician. ec2 22:52 Triage completed. ap3 22:54 Arm band placed on left wrist. ap3 23:34 Blood Culture Adult (2) Sent. kmf 23:34 CBC with Diff Sent. kmf 23:34 CMP Sent. kmf 23:34 Lactate w/ 2H reflex if indic. Sent. kmf 23:34 Protime (+inr) Sent. kmf 23:34 Ptt, Activated Sent. kmf 23:35 Missed attempt(s): 22 gauge Bleeding controlled, band aid applied, catheter tip intact. kmf 23:36 Inserted saline lock: 22 gauge in left antecubital area, using aseptic technique. Blood kmf collected. 23:49 Foot Right 3 View XRAY In Process Unspecified. EDMS 10/08 00:08 Jorge Byrne RN is Primary Nurse. rv 00:37 Patient has correct armband on for positive identification. Client placed on continuous rv cardiac and pulse oximetry monitoring. NIBP monitoring applied. quality assurance monitor body on. 00:37 No provider procedures requiring assistance completed. rv 02:13 IV discontinued, intact, bleeding controlled, No redness/swelling at site. Pressure rv dressing applied. Administered Medications: 00:08 Drug: Acetaminophen PO 1000 mg PO once Route: PO; rv 02:13 Follow up: Response: No adverse reaction rv 00:08 Drug: Piperacillin-Tazobactam IVPB 3.375 grams IVPB once over 60 mins; (mix in NS 100 rv mL) Route: IVPB; Infused Over: 60 mins; Site: left antecubital; 00:36 Follow up: Response: No adverse reaction rv 00:36 Follow up: IV Status: Completed infusion; IV Intake: 100ml rv 00:36 Drug: vancoMYCIN IVPB 1.5 grams IVPB at calculated rate once Route: IVPB; Rate: rv calculated rate; Site: left antecubital; 02:13 Follow up: Response: No adverse reaction; IV Status: Completed infusion rv Medication: 00:37 VIS not applicable for this client. rv Intake: 00:36 IV: 100ml; Total: 100ml. rv Outcome: 01:00 Discharge ordered by . ec2 02:13 Discharged to home ambulatory, with family, rv 02:13 Condition: good 02:13 Discharge instructions given to patient, family, Instructed on discharge instructions, follow up and referral plans. medication usage, Demonstrated understanding of instructions, follow-up care, medications, Prescriptions given X 1, 02:43 Patient left the ED. rv Signatures: Dispatcher [employer] Michell Nguyen RN RN [id number] Jorge Byrne RN RN rv Lynne Saucedo [id number] Maury Rubalcava MD MD ec2 Yajaira [place]
--- NOTE | 2023-10-08 01:01 | EDPHYS ---
Physician Documentation [facility] Name: Glenna Finney Age: 42 yrs Sex: Female : 1980 Arrival Date: 10/07/2023 Time: 22:36 Bed 12 Private MD: ED Physician Maury Rubalcava HPI: 10/07 23:08 This 42 yrs old Female presents to ER via Wheelchair with complaints of Wound ec2 Infection, TYPE II DM, Foot Pain. 23:08 Patient arrives today for evaluation of a diabetic foot wound. Patient reports that she ec2 has a wound to the third toe of the right foot. Reports a history of hypertension and diabetes. States that she had noted some drainage as well as some redness to the area. Patient reports no fevers or chills, no nausea or vomiting.. Historical: - Allergies: 22:52 No Known Allergies; ap3 - PMHx: 22:52 Diabetes - NIDDM; Hypertension; ap3 - Immunization history:: Client reports receiving the 2nd dose of the Covid vaccine, Flu vaccine is not up to date. - Social history:: Smoking status: Patient denies any tobacco usage or history of. ROS: 23:09 Constitutional: as per hpi ec2 Exam: 23:09 Constitutional: GEN: NAD Head: atraumatic Eyes: EOMI Ears: External ears are ec2 normal. CV: regular rate LUNGS: no respiratory distress ABD: non-distended SKIN: Right foot with pinky toe amputation, third toe with surrounding erythema and warmth, no significant crepitus appreciated, discharge noted between the webs of the toes. MSK: no evidence of trauma NEURO: moves all extremities equally Vital Signs: 22:51 BP 149 / 82; Pulse 99; Resp 18; Temp 98.2; Pulse Ox 100% ; Weight 92.53 kg; ap3 10/08 00:51 Pulse 88; ec2 02:12 BP 136 / 79; Pulse 78; Resp 17; Temp 98; Pulse Ox 99% ; rv [place] Coma Score: 02:12 Eye Response: spontaneous(4). Motor Response: obeys commands(6). Verbal Response: rv oriented(5). Total: 15. MDM: 10/07 22:43 Patient medically screened. ec2 23:09 ED course: Patient arrives today for evaluation of discharge and redness from the right ec2 foot. Examination remarkable for individual who is borderline tachycardic, not febrile and has skin findings as noted above. Will obtain a septic work-up, right foot x-ray and reassess the patient. Will empirically treat with antibiotics for skin infection. We will obtain a foot x-ray as well to evaluate for bony involvement. Currently considering cellulitis, osteomyelitis, diabetic foot wound.. 23:59 Data reviewed: vital signs. ED course: CBC with slight leukocytosis at 11. Lactic acid ec2 within normal ranges. . 10/08 00:11 ED course: Metabolic profile shows hyperglycemia with a sugar of 370, some renal ec2 dysfunction noted. . 00:51 ED course: Foot x-ray with no acute abnormalities identified.. ec2 00:59 ED course: On reassessment patient with improving tachycardia, is nontoxic and denies ec2 any significant worsening symptoms. I used shared decision-making with the patient regarding inpatient hospitalization given the patient's propensity for poor wound healing and ultimately she decided to return to home. Will discharge home with clindamycin antibiotic. Return precautions given.. 10/07 23:01 Order name: Blood Culture Adult (2) ec2 10/07 23:01 Order name: CBC with Diff; Complete Time: 23:59 ec2 10/07 23:01 Order name: CMP; Complete Time: 00:11 ec2 10/07 23:01 Order name: Lactate w/ 2H reflex if indic.; Complete Time: 23:59 ec2 10/07 23:01 Order name: Protime (+inr); Complete Time: 23:59 ec2 10/07 23:01 Order name: Ptt, Activated; Complete Time: 23:59 ec2 10/07 23:09 Order name: Foot Right 3 View XRAY ec2 10/07 23:01 Order name: EKG; Complete Time: 23:02 ec2 10/07 23:01 Order name: Accucheck; Complete Time: 23:58 ec2 10/07 23:01 Order name: Cardiac monitoring; Complete Time: 23:58 ec2 10/07 23:01 Order name: EKG - Nurse/Tech; Complete Time: 23:58 ec2 10/07 23:01 Order name: IV Saline Lock - Large Bore; Complete Time: 23:58 ec2 10/07 23:01 Order name: Labs collected and sent; Complete Time: 23:58 ec2 10/07 23:01 Order name: O2 Per Protocol; Complete Time: 23:58 ec2 10/07 23:01 Order name: O2 Sat Monitoring; Complete Time: 23:58 ec2 10/07 23:01 Order name: Vital Signs; Complete Time: 23:08 ec2 Administered Medications: 00:08 Drug: Acetaminophen PO 1000 mg PO once Route: PO; rv 02:13 Follow up: Response: No adverse reaction rv 00:08 Drug: Piperacillin-Tazobactam IVPB 3.375 grams IVPB once over 60 mins; (mix in NS 100 rv mL) Route: IVPB; Infused Over: 60 mins; Site: left antecubital; 00:36 Follow up: Response: No adverse reaction rv 00:36 Follow up: IV Status: Completed infusion; IV Intake: 100ml rv 00:36 Drug: vancoMYCIN IVPB 1.5 grams IVPB at calculated rate once Route: IVPB; Rate: rv calculated rate; Site: left antecubital; 02:13 Follow up: Response: No adverse reaction; IV Status: Completed infusion rv Disposition Summary: 10/08/23 01:00 Discharge Ordered Notes: Location: Home ec2 Condition: Stable ec2 Diagnosis - Cellulitis of right toe ec2 Followup: ec2 - With: Private Physician - When: - Reason: Re-evaluation by your physician Discharge Instructions: - Discharge Summary Sheet ec2 - Cellulitis, Adult ec2 Forms: - Medication Reconciliation Form ec2 - Thank You Letter ec2 - Antibiotic Education ec2 - Prescription Opioid Use ec2 - Patient Portal Instructions ec2 - Leadership Thank You Letter ec2 Prescriptions: - Clindamycin HCl 150 mg Oral capsule - take 3 capsule ORAL route every 8 hours for 10 days; 90 capsule; Refills: 0, ec2 Product Selection Permitted Signatures: Dispatcher [employer] Michell Nguyen RN RN ap3 Jorge Byrne RN RN rv Corral, Edwin, MD MD ec2
[2023-10-08 03:33] VITALS: BP 136/79; TEMP 98; O2SAT 99
--- NOTE | 2023-10-09 12:35 | RAD REPORT ---
EXAM DESCRIPTION: XR Right Foot Complete, 3 or More Views CLINICAL HISTORY: The patient is 42 years old and is Female; PAIN Bed Name: 12 TECHNIQUE: Frontal, lateral and oblique views of the right foot. COMPARISON: No relevant prior studies available. FINDINGS: BONES/JOINTS: Moderate-sized plantar and tiny dorsal calcaneal spurs noted. 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 No acute fracture. No dislocation. SOFT TISSUES: Unremarkable. No radiopaque foreign body. 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 No acute findings of the right foot. Electronically signed by: Larry Kennedy MD 10/08/2023 12:42 AM AUTISM SPECIALIST Due to temporary technical issues with the PACS/Fluency reporting system, reports are being signed by the in house radiologist without review as a courtesy to ensure prompt reporting. The interpreting r adiologist is fully responsible for the content of the report.
== END 2023-10-08 02:43 | disposition home or self-care (01) ==
LOC: ER 22:36
DX: L03.031 Cellulitis of right toe (principal); E11.8 Type 2 diabetes mellitus with unspecified complications; I10 Essential (primary) hypertension; L08.9 Local infection of the skin and subcutaneous tissue, unspecified
CPT/HCPCS: 36415; 80053; 83605; 85025; 85610; 85730; 87040; 96365; 96367; 99285; J2543; J7050

== ENCOUNTER 2023-10-11 11:38 | Inpatient (IN) | payer SELFPAY ==
--- OUTSIDE RECORDS SUMMARY | 2023-10-11 11:47 | XMS REPORT | Continuity of Care Document ---
:1980 Author Organization [facility] [place] [facility] t Address [address] [facility] [address] [place] [address] Care Team Providers Name Role Phone PCP, PATIENT DOES NOT HAVE A Primary Care Physician UnavailALBAN Bello Attending Clinician Unavailable Alban Carrasco Attending Clinician [email or web address] Attending Clinician Unavailable Lorena Mclain MSN Attending Clinician Unavailable EDDOC, GENERIC FOR EDM Attending Clinician Unavailable ESHA CUI Attending Clinician Unavailable Esha Cui DO Attending Clinician VIVIANE MCKEON Attending Clinician Unavailable Viviane Conti Attending Clinician Doctor Unassigned, Wing[place] Attending Clinician Unavailable FRANK SAMPSON Attending Clinician Unavailable FRANK SAMPSON Attending Clinician Unavailable Edgardo Jim DO Attending Clinician Frank Sampson DO Attending Clinician MO QUINTERO Attending Clinician Unavailable Mo Quintero MD Attending Clinician Rm, Adc Surg Spec Procedure Attending Clinician Unavailable LUCYCINTHIA CHAMBERSLUZ Admitting Clinician Unavailable [email or web address]_S Admitting Clinician Unavailable Amelia Herr Admitting Clinician Unavailable Physician, No Primary or Family Admitting Clinician UnavailESHA Ho Admitting Clinician Unavailable Payers Payer Name Policy Type Policy Number Effective Date Expiration Date Sugar COLLAZO II [id number] 2016 00:00:00 Problems Condition Condition Condition Status [...] the ons ons original. ICD10 Diagnosis Term Materials Technician Utility General General Disease Active 2013-11 Overview: Univ ers counseling counseling 1-23 Formattin ity of and advice and advice 00:00: g of this [place] for for 00 note Medical contracept contracept might be Branch jonathan jonathan different management management from the original. ICD10 Diagnosis Term Materials Technician Utility Elevated Elevated Disease Active 2013-11 Unive rs blood blood 1-23 ity of pressure pressure 00:00: [place] reading reading 00 Medical without without Branch diagnosis diagnosis of of hypertensi hypertensi on on Dysmenorrh Dysmenorrh Disease Active 2013-11 U chace ea ea 12-12 ity of 00:00: [place] 00 [facility] Branch Allergies, Adverse Reactions, Alerts Allergy Allergy Status Severity Reaction(s) Onset Inactive Treating Comm ents Source Name Type Date Date Clinician No Known DA Active U [facility] Allergie 12-17 Clear s 00:00: [place] 00 [facility] NO KNOWN Drug Active Univers ALLERGIE Class ity of S [facility] Social History Social Habit Start Date Stop Date Quantity Comments Source Exposure to Not sure [facility] SARS-CoV-2 (event) [facility] History of tobacco Cigarette Smoker University of use [facility] 2023-10-03 2023-10-03 Current University 00:00:00 00:00:00 non-drinker of [facility] alcohol [place] (finding) History of Social 2020-09-11 2020-09-11 Univers ity of function 00:00:00 00:00:00 [facility] Tobacco use and 2020-08-21 2020-08-21 Smokeless Universit y of exposure 00:00:00 00:00:00 tobacco non-user [facility] Assigned At [birth year] Universit y of 00:00:00 00:00:00 [facility] Smoking Status Start Date Stop Date Source Ex-smoker 2020-08-21 00:00:00 2020-08-21 00:00:00 Universi ty [facility] Never smoker [facility] Medications Ordered Filled Start Stop Current Ordering Indication Dosage Frequency Signature Comments Components Source Medication Medication Date Date Medication? Clinician (SIG) Name Name amoxicillin 2022-11 Yes [id number] 1{tbl} Take 1 Univers -clavulanat 1-14 tablet [...] 20 mg 6-18 tablet 00:00: 00 furosemide 2021- No 1mg 20 mg 6-18 tablet 00:00: 00 Dose 2022-0 No Unknown 3-18 [...] Dose 2021-0 No Unknown 3-04 00:00: 00 metformin 2021-0 2021- No 1000mg Take 1,000 Univers HCl -17 12-28 mg by ity of (METFORMIN 14:49: 00:00 mouth 2 Justin as ORAL) 01 :00 (two) Medical times Branch daily. glipiZIDE 2021- No 10mg Take 10 mg U nivers 10 mg 12-17 by mouth 2 ity of tablet 14:49: 00:00 (two) [place] 01 :00 times Medical daily Branch before breakfast and dinner. glipiZIDE Yes [id number] 10mg Take 1 Un irais 10 mg 12-17 tablet by ity of tablet 00:00: mouth 2 [place] (two) Medical times Branch daily before breakfast and dinner. metFORMIN Yes [id number] 500mg Take 1 U nivers 500 mg - tablet by ity of tablet 00:00: mouth 2 [place] (two) Medical times Branch daily. glipiZIDE Yes [id number] 10mg Take 1 Un irais 10 mg -28 tablet by ity of tablet 00:00: mouth 2 [place] (two) Medical times Branch daily before breakfast and dinner. metFORMIN Yes [id number] 500mg Take 1 U nivers 500 mg 12-17 tablet by ity of tablet 00:00: mouth 2 (two) Medical times Branch daily. insulin NPH 2021- No [id number] 10U inject 10 Univers and regular 12-17-28 Units ity of human 70-30 00:00: 05:59 under the [place] 100 unit/mL 00 :00 skin 2 Medica l (70-30) (two) Branch injection times daily before breakfast and dinner for 30 days. clindamycin 2021- No [id number] 450mg Take 3 Univers 150 mg 11-28 [id number] capsules ity of capsule 00:00: 05:59 by [...] 1-0 No Unknown 1-08 00:00: 00 nitrofurant 2021-0 No 1mg oin 1-08 macrocrysta 00:00: l 100 mg 00 capsule ibuprofen 1-0 No 1mg 800 mg 1-08 tablet 00:00: 00 cyclobenzap 2021-0 No 1mg rine 10 mg 1-08 tablet [...] nivers INHALE 0-16 Puff. ity of 16:02: [place] [address] Medical Branch metformin 2019- Yes 1000mg Take 1,000 Univers HCl 0-16 mg by ity of (METFORMIN 16:02: [place] (two) Medical times Branch daily. glipiZIDE 2019-11 Yes 10mg Take 10 mg Un irais 10 mg 0-16 by mouth 2 ity of tablet 16:02: (two) [place] [address] times Medical daily Branch before breakfast and dinner. lisinopriL 2019-11 Yes 10mg Take 10 mg U nivers 10 mg 0-16 by mouth ity of tablet 16:02: daily. [place] [address] Medical Branch aspirin 325 2019- Yes 325mg Take 325 U nivers mg tablet 0-16 mg by ity of 16:02: mouth [place] [address] daily. Medical Branch ALBUTEROL 2019- Yes 1{puff} Inhale 1 U nivers INHALE 0-16 Puff. ity of 16:02: [place] [address] Medical Branch metformin 2019- Yes 1000mg Take 1,000 Univers HCl 0-16 mg by ity of (METFORMIN 16:02: [place] 2 [place] 58 (two) Medical times Branch daily. glipiZIDE 2019- Yes 10mg Take 10 mg Un irais 10 mg 0-16 by mouth 2 ity of tablet 16:02: (two) [place] [address] times Medical daily Branch before breakfast and dinner. lisinopriL 2019- Yes 10mg Take 10 mg U nivers 10 mg 0-16 by mouth ity of tablet 16:02: daily. [address] Branch aspirin 325 2019- Yes 325mg Take 325 U nivers mg tablet 0-16 mg by ity of 16:02: mouth [place] 58 daily. Medical Branch ALBUTEROL 2019- Yes 1{puff} Inhale 1 U nivers INHALE 0-16 Puff. ity of 16:02: [address] metformin 2019- Yes 1000mg Take 1,000 Univers HCl 0-16 mg by ity of (METFORMIN 16:02: [place] 2 [place] (two) Medical times Branch daily. glipiZIDE 2019-11 Yes 10mg Take 10 mg Un irais 10 mg 0-16 by mouth 2 ity of tablet 16:02: (two) [address] Medical daily Branch before breakfast and dinner. lisinopriL 2019- Yes 10mg Take 10 mg U nivers 10 mg 0-16 by mouth ity of tablet 16:02: daily. [address] aspirin 325 2019-11 Yes 325mg Take 325 U nivers mg tablet 0-16 mg by ity of 16:02: mouth [place] 58 daily. Medical Branch ALBUTEROL 2019- Yes 1{puff} Inhale 1 U nivers INHALE 0-16 Puff. ity of 16:02: [address] Branch metformin 2019- Yes 1000mg Take 1,000 Univers HCl 0-16 mg by ity of (METFORMIN 16:02: [place] 2 [place] (two) Medical times Branch daily. glipiZIDE 2019- Yes 10mg Take 10 mg Un irais 10 mg 0-16 by mouth 2 ity of tablet 16:02: (two) [place] [address] times Medical daily Branch before breakfast and dinner. lisinopriL 2019- Yes 10mg Take 10 mg U nivers 10 mg 0-16 by mouth ity of tablet 16:02: daily. [address] Branch aspirin 325 2019- Yes 325mg Take 325 U nivers mg tablet 0-16 mg by ity of 16:02: mouth [place] 58 daily. Medical Branch ALBUTEROL 2019-11 Yes 1{puff} Inhale 1 U nivers INHALE 0-16 Puff. ity of 16:02: [address] Branch metformin 2019- Yes 1000mg Take 1,000 Univers HCl 0-16 mg by ity of (METFORMIN 16:02: mouth 2 [place] (two) Medical times Branch daily. glipiZIDE 2019-11 Yes 10mg Take 10 mg Un irais 10 mg 0-16 by mouth 2 ity of tablet 16:02: (two) [address] Medical daily Branch before breakfast and dinner. lisinopriL 2019-11 Yes 10mg Take 10 mg U nivers 10 mg 0-16 by mouth ity of tablet 16:02: daily. [address] aspirin 325 2019-11 Yes 325mg Take 325 U nivers mg tablet 0-16 mg by ity of 16:02: mouth [place] 58 daily. Medical Branch ALBUTEROL 2019-11 Yes 1{puff} Inhale 1 U nivers INHALE 0-16 Puff. ity of 16:02: [address] metformin 2019-11 Yes 1000mg Take 1,000 Univers HCl 0-16 mg by ity of (METFORMIN 16:02: mouth 2 [place] (two) Medical times Branch daily. glipiZIDE 2019-11 Yes 10mg Take 10 mg Un irais 10 mg 0-16 by mouth 2 ity of tablet 16:02: (two) [address] Medical daily Branch before breakfast and dinner. lisinopriL 2019-11 Yes 10mg Take 10 mg U nivers 10 mg 0-16 by mouth ity of tablet 16:02: daily. [address] aspirin 325 2019- Yes 325mg Take 325 U nivers mg tablet 0-16 mg by ity of 16:02: mouth [place] 58 daily. Medical Branch ALBUTEROL 2019-11 Yes 1{puff} Inhale 1 U nivers INHALE 0-16 Puff. ity of 16:02: [address] Branch metformin 2019- Yes 1000mg Take 1,000 Univers HCl 0-16 mg by ity of (METFORMIN 16:02: mouth 2 [place] 58 (two) Medical times Branch daily. glipiZIDE 2020- Yes 10mg Take 10 mg Un irais 10 mg 0-16 by mouth 2 ity of tablet 16:02: (two) [place] [address] times Medical daily Branch before breakfast and dinner. lisinopriL 2020- Yes 10mg Take 10 mg U nivers 10 mg 0-16 by mouth ity of tablet 16:02: daily. [address] Branch aspirin 325 2019- Yes 325mg Take 325 U nivers mg tablet 0-16 mg by ity of 16:02: mouth [place] 58 daily. Medical Branch ALBUTEROL 2019- Yes 1{puff} Inhale 1 U nivers INHALE 0-16 Puff. ity of 16:02: [address] metformin 2020- Yes 1000mg Take 1,000 Univers HCl 0-16 mg by ity of (METFORMIN 16:02: mouth 2 [place] 58 (two) Medical times Branch daily. glipiZIDE 2019- Yes 10mg Take 10 mg Un irais 10 mg 0-16 by mouth 2 ity of tablet 16:02: (two) [address] Medical daily Branch before breakfast and dinner. lisinopriL 2019- Yes 10mg Take 10 mg U nivers 10 mg 0-16 by mouth ity of tablet 16:02: daily. [address] aspirin 325 2019- Yes 325mg Take 325 U nivers mg tablet 0-16 mg by ity of 16:02: mouth [place] 58 daily. Medical Branch ALBUTEROL 2019- Yes 1{puff} Inhale 1 U nivers INHALE 0-16 Puff. ity of 16:02: [address] metformin 2020- Yes 1000mg Take 1,000 Univers HCl 0-16 mg by ity of (METFORMIN 16:02: mouth 2 [place] (two) Medical times Branch daily. glipiZIDE 2020- Yes 10mg Take 10 mg Un irais 10 mg 0-16 by mouth 2 ity of tablet 16:02: (two) [address] Medical daily Branch before breakfast and dinner. lisinopriL 2019- Yes 10mg Take 10 mg U nivers 10 mg 0-16 by mouth ity of tablet 16:02: daily. [address] Branch aspirin 325 2019-11 Yes 325mg Take 325 U nivers mg tablet 0-16 mg by ity of 16:02: mouth [place] 58 daily. Medical Branch ALBUTEROL 2019-11 Yes 1{puff} Inhale 1 U nivers INHALE 0-16 Puff. ity of 16:02: [address] metformin 2019-11 Yes 1000mg Take 1,000 Univers HCl 0-16 mg by ity of (METFORMIN 16:02: mouth 2 [place] (two) Medical times Branch daily. glipiZIDE 2019-11 Yes 10mg Take 10 mg Un irais 10 mg 0-16 by mouth 2 ity of tablet 16:02: (two) [address] Medical daily Branch before breakfast and dinner. lisinopriL 2019-11 Yes 10mg Take 10 mg U nivers 10 mg 0-16 by mouth ity of tablet 16:02: daily. [address] aspirin 325 2019-11 Yes 325mg Take 325 U nivers mg tablet 0-16 mg by ity of 16:02: mouth [place] 58 daily. Medical Branch ALBUTEROL 2019-11 Yes 1{puff} Inhale 1 U nivers INHALE 0-16 Puff. ity of 11:02: [address] metformin 2019-11 Yes 1000mg Take 1,000 Univers HCl 0-16 mg by ity of (METFORMIN 11:02: mouth 2 [place] (two) Medical times Branch daily. glipiZIDE 2019-11 Yes 10mg Take 10 mg Un irais 10 mg 0-16 by mouth 2 ity of tablet 11:02: (two) [address] Medical daily Branch before breakfast and dinner. lisinopriL 2019-11 Yes 10mg Take 10 mg U nivers 10 mg 0-16 by mouth ity of tablet 11:02: daily. [address] aspirin 325 2019-11 Yes 325mg Take 325 U nivers mg tablet 0-16 mg by ity of 11:02: mouth [place] 58 daily. Medical Branch ALBUTEROL 2019-11 Yes 1{puff} Inhale 1 U nivers INHALE 0-16 Puff. ity of 11:02: [address] metformin 2019-11 Yes 1000mg Take 1,000 Univers HCl 0-16 mg by ity of (METFORMIN 11:02: mouth 2 [place] (two) Medical times Branch daily. glipiZIDE 2019-11 Yes 10mg Take 10 mg Un irais 10 mg 0-16 by mouth 2 ity of tablet 11:02: (two) [place] [address] times Medical daily Branch before breakfast and dinner. lisinopriL 2019-11 Yes 10mg Take 10 mg U nivers 10 mg 0-16 by mouth ity of tablet 11:02: daily. [place] [address] Medical Branch aspirin 325 2019-11 Yes 325mg Take 325 U nivers mg tablet 0-16 mg by ity of 11:02: mouth [place] [address] daily. Medical Branch ALBUTEROL 2019-11 Yes 1{puff} Inhale 1 U nivers INHALE 0-16 Puff. ity of 11:02: [place] [address] Medical Branch lisinopriL 2019-11 Yes 10mg Take 10 mg U nivers 10 mg 0-16 by mouth ity of tablet 11:02: daily. [place] [address] Medical Branch aspirin 325 2019-11 Yes 325mg Take 325 U nivers mg tablet 0-16 mg by ity of 11:02: mouth [place] [address] daily. Medical Branch ALBUTEROL 2019-11 Yes 1{puff} Inhale 1 U nivers INHALE 0-16 Puff. ity of 11:02: [place] [address] Medical Branch lisinopriL 2019-11 Yes 10mg Take 10 mg U nivers 10 mg 0-16 by mouth ity of tablet 11:02: daily. [place] [address] Medical Branch aspirin 325 2019-11 Yes 325mg Take 325 U nivers mg tablet 0-16 mg by ity of 11:02: mouth [place] [address] daily. Medical Branch ProAir HFA 2019-11 No [...] mouth 2 ity of tablet 16:46: (two) [address] Medical daily Branch before breakfast and dinner. lisinopriL 2019-11 Yes 10mg Take 10 mg U nivers 10 mg 0-02 by mouth ity of tablet 16:46: daily. [address] Branch aspirin 325 2019- Yes 325mg Take 325 U nivers mg tablet 0-02 mg by ity of 16:46: mouth [place] [address] daily. Medical Branch glipiZIDE 2019-11 Yes 10mg Take 10 mg Un irais 10 mg 0-02 by mouth 2 ity of tablet 16:46: (two) [address] Medical daily Branch before breakfast and dinner. lisinopriL 2019-11 Yes 10mg Take 10 mg U nivers 10 mg 0-02 by mouth ity of tablet 16:46: daily. [address] aspirin 325 2019-11 Yes 325mg Take 325 U nivers mg tablet 0-02 mg by ity of 16:46: mouth [place] [address] daily. Medical Branch glipiZIDE 2019-11 Yes 10mg Take 10 mg Un irais 10 mg 0-02 by mouth 2 ity of tablet 16:46: (two) [address] Medical daily Branch before breakfast and dinner. lisinopriL 2019-11 Yes 10mg Take 10 mg U nivers 10 mg 0-02 by mouth ity of tablet 16:46: daily. [address] Branch aspirin 325 2019-11 Yes 325mg Take 325 U nivers mg tablet 0-02 mg by ity of 16:46: mouth [place] [address] daily. Medical Branch ALBUTEROL 2019-11 Yes 1{puff} Inhale 1 U nivers INHALE 0-02 Puff. ity of 16:46: [address] Branch metformin 2019- Yes 1000mg Take 1,000 Univers HCl 0-02 mg by ity of (METFORMIN 16:46: mouth 2 [place] ORAL[place] 16 (two) Medical times Branch daily. ALBUTEROL 2019-11 Yes 1{puff} Inhale 1 U nivers INHALE 0-02 Puff. ity of 16:46: [address] Branch metformin 2019- Yes 1000mg Take 1,000 Univers HCl 0-02 mg by ity of (METFORMIN 16:46: mouth 2 [place] ORAL[place] 16 (two) Medical times Branch daily. ALBUTEROL 2019- Yes 1{puff} Inhale 1 U nivers INHALE 0-02 Puff. ity of 16:46: [place] 16 Medical Branch metformin 2019- Yes 1000mg Take 1,000 Univers HCl 0-02 mg by ity of (METFORMIN 16:46: mouth 2 [place] ORAL[place] 16 (two) Medical times Branch daily. fluticasone 2019- Yes [id number] 1{puff} Inhale 1 Univers propion-rowena 0-02 Puff 2 ity of meteroL 00:00: (two) [place] (AIRDUO 00 times Medical RESPICLICK) daily. Branch 113-14 mcg/actuati on AePB fluticasone 2020- Yes [id number] 1{puff} Inhale 1 Univers propion-rowena 0-02 Puff 2 ity of meteroL 00:00: (two) [place] (AIRDUO 00 times Medical RESPICLICK) daily. Branch 113-14 mcg/actuati on AePB fluticasone 2020- Yes [id number] 1{puff} Inhale 1 Univers propion-rowena 0-02 Puff 2 ity of meteroL 00:00: (two) [place] (AIRDUO 00 times Medical RESPICLICK) daily. Branch 113-14 mcg/actuati on AePB fluticasone 2020- Yes [id number] 1{puff} Inhale 1 Univers propion-rowena 0-02 Puff 2 ity of meteroL 00:00: (two) [place] (AIRDUO 00 times Medical RESPICLICK) daily. Branch 113-14 mcg/actuati on AePB fluticasone 2020- Yes [id number] 1{puff} Inhale 1 Univers propion-rowena 0-02 Puff 2 ity of meteroL 00:00: (two) [place] (AIRDUO 00 times Medical RESPICLICK) daily. Branch 113-14 mcg/actuati on AePB fluticasone 2020- Yes [id number] 1{puff} Inhale 1 Univers propion-rowena 0-02 Puff 2 ity of meteroL 00:00: (two) [place] (AIRDUO 00 times Medical RESPICLICK) daily. Branch 113-14 mcg/actuati on AePB fluticasone 2020- Yes [id number] 1{puff} Inhale 1 Univers propion-rowena 0-02 Puff 2 ity of meteroL 00:00: (two) [place] (AIRDUO 00 times Medical RESPICLICK) daily. Branch 113-14 mcg/actuati on AePB fluticasone 2020-1 Yes [id number] 1{puff} Inhale 1 Univers propion-rowena 0-02 Puff 2 ity of meteroL 00:00: (two) [place] (AIRDUO 00 times Medical RESPICLICK) daily. Branch 113-14 mcg/actuati on AePB fluticasone 2020-1 Yes [id number] 1{puff} Inhale 1 Univers propion-rowena 0-02 Puff 2 ity of meteroL 00:00: (two) [place] (AIRDUO 00 times Medical RESPICLICK) daily. Branch 113-14 mcg/actuati on AePB fluticasone 2020-1 Yes [id number] 1{puff} Inhale 1 Univers propion-rowena 0-02 Puff 2 ity of meteroL 00:00: (two) [place] (AIRDUO 00 times Medical RESPICLICK) daily. Branch 113-14 mcg/actuati on AePB fluticasone 2020-1 Yes [id number] 1{puff} Inhale 1 Univers propion-rowena 0-02 Puff 2 ity of meteroL 00:00: (two) [place] (AIRDUO 00 times Medical RESPICLICK) daily. Branch 113-14 mcg/actuati on AePB fluticasone 2020-1 Yes [id number] 1{puff} Inhale 1 Univers propion-rowena 0-02 Puff 2 ity of meteroL 00:00: (two) [place] (AIRDUO 00 times Medical RESPICLICK) daily. Branch 113-14 mcg/actuati on AePB fluticasone 2020-1 Yes [id number] 1{puff} Inhale 1 Univers propion-rowena 0-02 Puff 2 ity of meteroL 00:00: (two) [place] (AIRDUO 00 times Medical RESPICLICK) daily. Branch 113-14 mcg/actuati on AePB fluticasone 2020-1 Yes [id number] 1{puff} Inhale 1 Univers propion-rowena 0-02 Puff 2 ity of meteroL 00:00: (two) [place] (AIRDUO 00 times Medical RESPICLICK) daily. Branch 113-14 mcg/actuati on AePB fluticasone 2020-1 Yes [id number] 1{puff} Inhale 1 Univers propion-rowena 0-02 Puff 2 ity of meteroL 00:00: (two) [place] (AIRDUO 00 times Medical RESPICLICK) daily. Branch 113-14 mcg/actuati on AePB fluticasone 2020-1 Yes [id number] 1{puff} Inhale 1 Univers propion-rowena 0-02 Puff 2 ity of meteroL 00:00: (two) [place] (AIRDUO 00 times Medical RESPICLICK) daily. Branch 113-14 mcg/actuati on AePB fluticasone 2020-1 Yes [id number] 1{puff} Inhale 1 Univers propion-rowena 0-02 Puff 2 ity of meteroL 00:00: (two) [place] (AIRDUO 00 times Medical RESPICLICK) daily. Branch [...] glimepiride 2017-0 No 1mg 2 mg tablet 614 00:00: 00 metformin 2017-0 No 1mg 1,000 [...] No known No Univers medications ity of [facility] Immunizations Ordered Filled Date Status Comments Source Immunization Name Immunization Name Moderna COVID-19 2021-03-26 Completed Vaccine 00:00:00 Moderna COVID-19 2021-03-26 Completed Vaccine 00:00:00 Moderna COVID-19 2021-02-26 Completed Vaccine 00:00:00 Moderna COVID-19 2021-02-26 Completed Vaccine 00:00:00 MMR 2014-10-22 Completed [facility] 00:00:00 [facility] MMR 2014-10-22 Completed [facility] 00:00:00 [facility] MMR 2014-10-22 Completed University of 00:00:00 [facility] MMR 2014-10-22 Completed University of 00:00:00 [facility] MMR 2014-10-22 Completed University of 00:00:00 [facility] MMR 2014-10-22 Completed University of 00:00:00 [facility] MMR 2014-10-22 Completed University of 00:00:00 [facility] MMR 2014-10-22 Completed University of 00:00:00 [facility] MMR 2014-10-22 Completed University of 00:00:00 [facility] MMR 2014-10-22 Completed University of 00:00:00 [facility] MMR 2014-10-22 Completed University of 00:00:00 [facility] MMR 2014-10-22 Completed University of 00:00:00 [facility] MMR 2014-10-22 Completed University of 00:00:00 [facility] MMR 2014-10-22 Completed University of 00:00:00 [facility] MMR 2014-10-22 Completed University of 00:00:00 [facility] MMR 2014-10-22 Completed University of 00:00:00 [facility] MMR 2014-10-22 Completed University of 00:00:00 [facility] Influenza Virus 2011-11-22 Completed Universit y of Vaccine 00:00:00 [facility] Pneumococcal 2011-11-22 Completed University o f Polysaccharide, 00:00:00 [place] Med ical PPSV23 (PNEUMOVAX) [place] Influenza Virus 2011-11-22 Completed Universit y of Vaccine 00:00:00 [facility] Pneumococcal 2011-11-22 Completed University o f Polysaccharide, 00:00:00 [place] Med ical PPSV23 (PNEUMOVAX) [place] Influenza Virus 2011-11-22 Completed Universit y of Vaccine 00:00:00 [facility] Pneumococcal 2011-11-22 Completed University o f Polysaccharide, 00:00:00 [place] Med ical PPSV23 (PNEUMOVAX) [place] Influenza Virus 2011-11-22 Completed Universit y of Vaccine 00:00:00 [facility] Pneumococcal 2011-11-22 Completed University o f Polysaccharide, 00:00:00 [place] Med ical PPSV23 (PNEUMOVAX) [place] Influenza Virus 2011-11-22 Completed Universit y of Vaccine 00:00:00 [facility] Pneumococcal 2011-11-22 Completed University o f Polysaccharide, 00:00:00 [place] Med ical PPSV23 (PNEUMOVAX) Branch Influenza Virus 2011-11-22 Completed Universit y of Vaccine 00:00:00 [facility] Pneumococcal 2011-11-22 Completed University o f Polysaccharide, 00:00:00 [place] Med ical PPSV23 (PNEUMOVAX) Branch Influenza Virus 2011-11-22 Completed Universit y of Vaccine 00:00:00 [facility] Influenza Virus 2011-11-22 Completed Universit y of Vaccine 00:00:00 [facility] Pneumococcal 2011-11-22 Completed University o f Polysaccharide, 00:00:00 [place] Med ical PPSV23 (PNEUMOVAX) Branch Pneumococcal 2011-11-22 Completed University o f Polysaccharide, 00:00:00 [place] Med ical PPSV23 (PNEUMOVAX) Branch Influenza Virus 2011-11-22 Completed Universit y of Vaccine 00:00:00 [facility] Pneumococcal 2011-11-22 Completed University o f Polysaccharide, 00:00:00 [place] Med ical PPSV23 (PNEUMOVAX) Branch Influenza Virus 2011-11-22 Completed Universit y of Vaccine 00:00:00 [facility] Pneumococcal 2011-11-22 Completed University o f Polysaccharide, 00:00:00 [place] Med ical PPSV23 (PNEUMOVAX) Branch Influenza Virus 2011-11-22 Completed Universit y of Vaccine 00:00:00 [facility] Pneumococcal 2011-11-22 Completed University o f Polysaccharide, 00:00:00 [facility] ical PPSV23 (PNEUMOVAX) Branch Influenza Virus 2011-11-22 Completed Universit y of Vaccine 00:00:00 [facility] Pneumococcal 2011-11-22 Completed University o f Polysaccharide, 00:00:00 [place] Med ical PPSV23 (PNEUMOVAX) Branch Influenza Virus 2011-11-22 Completed Universit y of Vaccine 00:00:00 [facility] Pneumococcal 2011-11-22 Completed University o f Polysaccharide, 00:00:00 [place] [facility] PPSV23 (PNEUMOVAX) Branch Influenza Virus 2011-11-22 Completed Universit y of Vaccine 00:00:00 [facility] Pneumococcal 2011-11-22 Completed University o f Polysaccharide, 00:00:00 [place] [facility] PPSV23 (PNEUMOVAX) Branch Influenza Virus 2011-11-22 Completed Universit y of Vaccine 00:00:00 [facility] Pneumococcal 2011-11-22 Completed University o f Polysaccharide, 00:00:00 [facility] ical PPSV23 (PNEUMOVAX) Branch Influenza Virus 2011-11-22 Completed Universit y of Vaccine 00:00:00 [facility] Pneumococcal 2011-11-22 Completed University o f Polysaccharide, 00:00:00 [facility] ical PPSV23 (PNEUMOVAX) Branch Influenza Virus 2011-11-22 Completed Universit y of Vaccine 00:00:00 [facility] Pneumococcal 2011-11-22 Completed University o f Polysaccharide, 00:00:00 [facility] PPSV23 (PNEUMOVAX) [place] MMR 2011-11-09 Completed University of 00:00:00 [facility] MMR 2011-11-09 Completed University of 00:00:00 [facility] MMR 2011-11-09 Completed University of 00:00:00 [facility] MMR 2011-11-09 Completed University of 00:00:00 [facility] MMR 2011-11-09 Completed University of 00:00:00 [facility] MMR 2011-11-09 Completed University of 00:00:00 [facility] MMR 2011-11-09 Completed University of 00:00:00 [facility] MMR 2011-11-09 Completed University of 00:00:00 [facility] MMR 2011-11-09 Completed University of 00:00:00 [facility] MMR 2011-11-09 Completed University of 00:00:00 [facility] MMR 2011-11-09 Completed University of 00:00:00 [facility] MMR 2011-11-09 Completed University of 00:00:00 [facility] MMR 2011-11-09 Completed University of 00:00:00 [facility] MMR 2011-11-09 Completed University of 00:00:00 [facility] MMR 2011-11-09 Completed University of 00:00:00 [facility] MMR 2011-11-09 Completed University of 00:00:00 [facility] MMR 2011-11-09 Completed University of 00:00:00 [facility] Hep B, Adol or Pedi 2004-06-19 Completed Unive rsity of Dosage 00:00:00 [facility] Hep B, Adol or Pedi 2004-06-19 Completed Unive rsity of Dosage 00:00:00 [facility] Hep B, Adol or Pedi 2004-06-19 Completed Unive rsity of Dosage 00:00:00 [facility] Hep B, Adol or Pedi 2004-06-19 Completed Unive rsity of Dosage 00:00:00 [facility] Hep B, Adol or Pedi 2004-06-19 Completed Unive rsity of Dosage 00:00:00 [facility] Hep B, Adol or Pedi 2004-06-19 Completed Unive rsity of Dosage 00:00:00 [facility] Hep B, Adol or Pedi 2004-06-19 Completed Unive rsity of Dosage 00:00:00 [facility] Hep B, Adol or Pedi 2004-06-19 Completed Unive rsity of Dosage 00:00:00 [facility] Hep B, Adol or Pedi 2004-06-19 Completed Unive rsity of Dosage 00:00:00 [facility] Hep B, Adol or Pedi 2004-06-19 Completed Unive rsity of Dosage 00:00:00 [facility] Hep B, Adol or Pedi 2004-06-19 Completed Unive rsity of Dosage 00:00:00 [facility] Hep B, Adol or Pedi 2004-06-19 Completed Unive rsity of Dosage 00:00:00 [facility] Hep B, Adol or Pedi 2004-06-19 Completed Unive rsity of Dosage 00:00:00 [facility] Hep B, Adol or Pedi 2004-06-19 Completed Unive rsity of Dosage 00:00:00 [facility] Hep B, Adol or Pedi 2004-06-19 Completed Unive rsity of Dosage 00:00:00 [facility] Hep B, Adol or Pedi 2004-06-19 Completed Unive rsity of Dosage 00:00:00 [facility] Hep B, Adol or Pedi 2004-06-19 Completed Unive rsity of Dosage 00:00:00 [facility] MMR Unknown Completed [facility] Influenza Virus Unknown Completed Universit y of Vaccine [facility] Pneumococcal Unknown Completed Thermal o f Polysaccharide, [facility] PPSV23 (PNEUMOVAX) Branch MMR Unknown Completed [facility] Vital Signs Vital Name Observation Time Observation Value Comments Source Systolic blood 2023-10-03 23:39:04 136 mm[Hg] Univer sity of pressure [facility] Diastolic blood 2023-10-03 23:39:04 88 mm[Hg] Unive rsity of pressure [facility] Heart rate 2023-10-03 23:39:04 92 /min Universi ty of [facility] [place] [facility] Body temperature 2023-10-03 23:39:04 37 Alexandrea Univ ersity of [facility] [place] [facility] Respiratory rate 2023-10-03 23:39:04 18 /min Univ ersity of [facility] Oxygen saturation in 2023-10-03 23:39:04 100 /min University of Arterial blood by [place] [facility] kellie Pulse oximetry Branch Body height 2023-10-03 21:21:00 172.7 cm Universi ty of [facility] Body weight 2023-10-03 21:21:00 91.627 kg Universi ty of [facility] [place] [facility] BMI 2023-10-03 21:21:00 30.71 kg/m2 Universi ty of [facility] Systolic blood 2021-12-17 18:22:00 151 mm[Hg] Univer sity of pressure [facility] Diastolic blood 2021-12-17 18:22:00 88 mm[Hg] Unive rsity of pressure [facility] Heart rate 2021-12-17 18:22:00 110 /min Universi ty of [facility] Body temperature 2021-12-17 18:22:00 36.33 Alexandrea Univ ersity of [facility] [place] [facility] Respiratory rate 2021-12-17 18:22:00 18 /min Univ ersity of [facility] Body weight 2021-12-17 18:22:00 96.616 kg Universi ty of [facility] [place] [facility] BMI 2021-12-17 18:22:00 32.39 kg/m2 Universi ty of [facility] Oxygen saturation in 2021-12-17 18:22:00 99 /min University of Arterial blood by [facility] kellie Pulse oximetry Branch Systolic blood 2021-11-28 20:35:00 147 mm[Hg] Univer sity of pressure [facility] Diastolic blood 2021-11-28 20:35:00 102 mm[Hg] Unive rsity of pressure [facility] Heart rate 2021-11-28 20:35:00 98 /min Universi ty of [facility] [place] [facility] Body temperature 2021-11-28 20:35:00 37.06 Alexandrea Univ ersity of [facility] [place] [facility] Respiratory rate 2021-11-28 20:35:00 18 /min Univ ersity of [facility] [place] [facility] Body weight 2021-11-28 20:35:00 96.616 kg Universi ty of [facility] [place] [facility] BMI 2021-11-28 20:35:00 32.39 kg/m2 Universi ty of [facility] [place] [facility] Oxygen saturation in 2021-11-28 20:35:00 99 /min University of Arterial blood by [facility] kellie Pulse oximetry Branch Systolic blood 2020-11-26 19:22:00 156 mm[Hg] Univer sity of pressure [facility] Diastolic blood 2020-11-26 19:22:00 94 mm[Hg] Unive rsity of pressure [facility] Heart rate 2020-11-26 19:18:00 94 /min Universi ty of [facility] Respiratory rate 2020-11-26 19:18:00 19 /min Univ ersity of [facility] Body height 2020-11-26 19:18:00 172.7 cm Universi ty of [facility] Body weight 2020-11-26 19:18:00 96.888 kg Universi ty of [facility] [place] [facility] BMI 2020-11-26 19:18:00 32.48 kg/m2 [facility] [place] [facility] Oxygen saturation in 2020-11-26 19:18:00 98 /min University of Arterial blood by [facility] Pulse oximetry Branch Systolic blood 2020-09-11 16:16:00 106 mm[Hg] Univer sity of pressure [facility] Diastolic blood 2020-09-11 16:16:00 70 mm[Hg] Unive rsity of pressure [facility] Heart rate 2020-09-11 16:16:00 110 /min Universi ty of [facility] Body temperature 2020-09-11 16:16:00 36.22 Alexandrea Univ ersity of [facility] [place] [facility] Respiratory rate 2020-09-11 16:16:00 18 /min Univ ersity of [facility] Body weight 2020-09-11 16:16:00 99.156 kg Universi ty of [facility] [place] [facility] BMI 2020-09-11 16:16:00 34.24 kg/m2 [facility]i ty [facility] [place] [facility] Systolic blood 2020-09-04 16:01:00 178 mm[Hg] Univer sity of pressure [facility] [place] [facility] Diastolic blood 2020-09-04 16:01:00 105 mm[Hg] Unive rsity of pressure [facility] Heart rate 2020-09-04 16:01:00 111 /min Universi ty of [place] [facility] [place] Body temperature 2020-09-04 16:01:00 36.17 Alexandrea Univ ersity of [facility] Respiratory rate 2020-09-04 16:01:00 18 /min Univ ersity of [facility] Body height 2020-09-04 16:01:00 170.2 cm Universi ty of [facility] Body weight 2020-09-04 16:01:00 98.431 kg Universi ty of [facility] BMI 2020-09-04 16:01:00 33.99 kg/m2 Universi ty of [facility] Systolic blood 2020-08-21 16:42:00 137 mm[Hg] Univer sity of pressure [facility] Diastolic blood 2020-08-21 16:42:00 91 mm[Hg] Unive rsity of pressure [facility] Heart rate 2020-08-21 16:42:00 105 /min Universi ty of [facility] Body height 2020-08-21 16:42:00 172.7 cm Universi ty of [facility] Body weight 2020-08-21 16:42:00 92.987 kg [facility]i ty of [place] [facility] [place] BMI 2020-08-21 16:42:00 31.17 kg/m2 Universi ty of [facility] Oxygen saturation in 2020-08-21 16:42:00 99 /min [facility] Arterial blood by [facility] Pulse oximetry Branch BP Systolic 2022-05-07 15:30:00 [...] XR FOOT 3+ VW RIGHT 2023-10-03 22:36:07 Alban Rae [facility] ASSIGNMENT OF BENEFITS 2023-10-03 21:58:45 Doctor Unassigned, No [facility] Branch CONSENT/REFUSAL FOR 2023-10-03 21:10:10 Doctor Unassigned, No [facility] Medical Branch [id number] 2021-12-23 00:00:00 VUCHR.01 [facility] XR FOOT <3 VW LEFT 2021-12-17 19:51:21 Esha Cui [facility] COMP. METABOLIC PANEL 2021-12-17 19:27:00 Esha Cui [facility] ([id number]) [facility] SEDIMENTATION RATE 2021-12-17 19:27:00 Esha Cui [facility] CBC WITH DIFF 2021-12-17 19:27:00 Esha Cui [facility] NOTICE OF PRIVACY 2021-11-28 20:25:48 Doctor Unassigned, No [facility] PRACTICES [facility] Medical Branch CONSENT/REFUSAL FOR 2021-11-28 20:25:33 [facility], [facility] Branch DISCLOSURE AND CONSENT, 2020-09-11 05:01:00 Doctor Unassigned, N o [facility] MEDICAL AND SURGICAL [facility] Medical Bra nc PROCEDURES CONSENT/REFUSAL FOR 2020-08-21 16:23:25 Doctor Unassigned, No [facility] Medical Branch Plan of Care Planned Activity Planned Date Details Comments Source Goal Plan of Care Note [code = 37030-2] Goal Plan of Care Note [code = 16727-4] Goal Plan of Care Note [code = 51169-8] Goal Plan of Care Note [code = 58290-3] Goal Plan of Care Note [code = 69310-2] Goal Plan of Care Note [code = 37506-9] Goal Plan of Care Note [code = 48241-6] Goal Plan of Care Note [code = 93631-8] Goal Plan of Care Note [code = 80666-3] Goal Plan of Care Note [code = 40175-6] Goal Plan of Care Note [code = 69635-1] Goal Plan of Care Note [code = 51768-1] Goal Plan of Care Note [code = 94101-7] Goal Plan of Care Note [code = 28191-7] Goal Plan of Care Note [code = 11225-4] Goal Plan of Care Note [code = 20653-4] Goal Plan of Care Note [code = 23251-9] Goal Plan of Care Note [code = 50531-8] Goal Plan of Care Note [code = 69312-9] Goal Plan of Care Note [code = 08358-9] Goal Plan of Care Note [code = 89647-8] Goal Plan of Care Note [code = 50385-3] Goal Plan of Care Note [code = 92667-0] Goal Plan of Care Note [code = 40003-7] Goal Plan of Care Note [code = 69558-8] Goal Plan of Care Note [code = 33191-5] Goal Plan of Care Note [code = 16187-6] Goal Plan of Care Note [code = 01275-8] Goal Plan of Care Note [code = 18671-2] Goal Plan of Care Note [code = 00267-2] Goal Plan of Care Note [code = 50622-7] Goal Plan of Care Note [code = 86380-0] Goal Plan of Care Note [code = 61388-7] Goal Plan of Care Note [code = 19917-0] Goal Plan of Care Note [code = 29750-5] Goal Plan of Care Note [code = 01141-0] Goal Plan of Care Note [code = 78841-5] Goal Plan of Care Note [code = 17573-7] Goal Plan of Care Note [code = 79680-2] Goal Plan of Care Note [code = 99568-0] Goal Plan of Care Note [code = 16166-9] Goal Plan of Care Note [code = 72012-9] Goal Plan of Care Note [code = 28172-3] Goal Plan of Care Note [code = 08230-4] Goal Plan of Care Note [code = 48255-4] Goal Plan of Care Note [code = 64506-3] Goal Plan of Care Note [code = 01190-8] Goal Plan of Care Note [code = 58991-5] Goal Plan of Care Note [code = 19579-1] Goal Plan of Care Note [code = 18888-1] Goal Plan of Care Note [code = 54664-1] Goal Plan of Care Note [code = 95905-1] Goal Plan of Care Note [code = 19801-7] Goal Plan of Care Note [code = 21791-2] Goal Plan of Care Note [code = 35252-9] Goal Plan of Care Note [code = 52902-3] Goal Plan of Care Note [code = 23797-0] Goal Plan of Care Note [code = 58981-0] Goal Plan of Care Note [code = 60527-5] Goal Plan of Care Note [code = 57778-1] Goal Plan of Care Note [code = 09136-1] Goal Plan of Care Note [code = 81343-1] Goal Plan of Care Note [code = 98814-5] Goal Plan of Care Note [code = 35098-2] Goal Plan of Care Note [code = 83401-5] Goal Plan of Care Note [code = 54753-5] Goal Plan of Care Note [code = 23441-9] Goal Plan of Care Note [code = 63580-1] Goal Plan of Care Note [code = 24833-2] Goal Plan of Care Note [code = 74175-3] Goal Plan of Care Note [code = 53554-5] Goal Plan of Care Note [code = 88435-3] Goal Plan of Care Note [code = 21054-8] Goal Plan of Care Note [code = 21805-4] Goal Plan of Care Note [code = 51545-1] Goal Plan of Care Note [code = 55970-6] Goal Plan of Care Note [code = 98375-2] Goal Plan of Care Note [code = 00824-6] Goal Plan of Care Note [code = 21412-9] Goal Plan of Care Note [code = 00711-3] Goal Plan of Care Note [code = 97041-2] Goal Plan of Care Note [code = 65163-4] Goal Plan of Care Note [code = 59207-4] Goal Plan of Care Note [code = 83289-0] Encounters Start End Encounter Admission Attending Care Care Encounter Source Date/Time Date/Time Type Type Clinicians Facility Department ID 2023-10-03 2023-10-03 Emergency X VICTOR MANUEL [facility] [id number] Univers 15:23:00 17:49:00 [facility]AN [facility] 2023-10-03 2023-10-03 Emergency [place], [facility] [id number] Univers 15:23:00 17:49:00 Alban JERONIMO 350.1.13.10 ity [facility] 4.2.7.2.686 [facility] [id number] [facility] 084 [place] 2023-09-15 2023-09-15 Outpatient [id number]_[id number] PRIV PRIV [id number] [facility] 00:00:00 00:00:00 diyala_S [id number] Medic al 2023-07-21 2023-07-21 Outpatient SFA SFA [id number] 023 [place] 16:08:08 16:08:08 0901 [facility] 2023-01-10 2023-01-10 Outpatient SFA SFA [id number] 023 [place] 16:09:17 16:09:17 0221 [facility] 2022-12-28 2022-12-28 Outpatient SFA SFA [id number] 023 [place] 10:32:22 10:32:22 0208 F [facility] 2022-11-05 2022-11-05 Outpatient SFA SFA [id number] 022 [place] 10:07:32 10:07:32 1217 [facility] 2022-10-29 2022-10-29 Outpatient [id number] [id number] 00:00:00 00:00:00 Visit [id number] 2022-07-27 2022-07-27 Outpatient [id number] [id number] 00:00:00 00:00:00 Visit [id number] 2021-12-18 2021-12-23 Emergency EM BREA Mclain MEDI.01 [id number] [facility] 00:48:00 15:45:00 Lorena Lion [facility] 2021-12-17 2021-12-17 Outpatient EDDOC, [facility] LABO [id number] [facility] 23:10:00 23:10:00 GENERIC 03 [facility] 2021-12-17 2021-12-17 Emergency X SEE [facility] ERT [id number] Univers 12:27:00 14:57:00 ESHA ity of [facility] 2021-12-17 2021-12-17 [facility] 1.2.840.114 [id number] Univers 12:27:00 14:57:00 Esha JERONIMO 350.1.13.10 ity of [place] 4.2.7.2.686 [facility] [id number] [facility] 084 Branch 2021-11-28 2021-11-28 Emergency X DONIS [facility] ERT [id number] Univers 14:37:00 18:08:00 VIVIANE ity of [facility] 2021-11-28 2021-11-28 Emergency [facility] 1.2.840.114 [id number] Univers 14:37:00 18:08:00 Viviane JERONIMO 350.1.13.10 i ty of [place] 4.2.7.2.686 [facility] [id number] [facility] 084 Branch 2021-11-28 2021-11-28 Orders Doctor [place] 1.2.840.114 [id number] Univers 00:00:00 00:00:00 Only Unassigned, KERRY 350.1.13.10 ity of [place] [facility] 4.2.7.2.686 Justin [id number] [facility] 009 Branch 2021-07-02 2021-07-02 Outpatient R FRANK SAMPSON [facility] 10 [id number] Univers 13:00:00 13:00:00 FRANK SAMPSON i ty of [facility] 2021-02-04 2021-02-04 Patient Hernán [facility] 1.2.840.114 [id number] Univers 00:00:00 00:00:00 Outreach Edgardo PRIMARY 350.1.13.10 i ty of [facility] 4.2.7.2.686 [facility] [id number] Id dical 388 Branch 2020-11-26 2020-11-26 Office Camilla [facility] 1.2.840.114 [id number] Univers 13:01:30 13:34:48 Visit Frank Jeronimo 350.1.13.10 i ty of [place] [id number] Id dical nal 085 [facility] 2020-11-26 2020-11-26 Outpatient R FRANK SAMPSON [facility] 10 [id number] Univers 12:40:00 12:40:00 FRANK SAMPSON i ty of [facility] 2020-09-25 2020-09-25 [facility] [id number] Univers 10:15:00 10:15:00 MO [facility] 2020-09-11 2020-09-11 Office Mo Quintero [facility] 1.2.8 40.114 [id number] Univers 10:55:38 13:16:44 Visit Rm, Adc Surg Spec Procedure Didier 3 50.1.13.10 ity franck [place] [id number] [facility] 188 [facility] 2020-09-11 2020-09-11 Outpatient Reba QUINTERO [facility] [id number] Univers 10:45:00 10:45:00 MO [facility] 2020-09-11 2020-09-11 Orders Doctor [place] 1.2.840.114 [id number] Univers 00:00:00 00:00:00 Only Unassigned, KERRY 350.1.13.10 ity of [place] [facility] 4.2.7.2.686 Justin as [id number] [address] 2020-09-04 2020-09-04 Office Alyssia [facility] 1.2.840.114 [id number] Univers 10:15:26 11:26:31 Visit Mo Jeronimo 350.1.13.10 i ty of [place] [id number] Id dic[address] 2020-09-04 2020-09-04 Outpatient Reba QUINTERO [facility] [id number] Univers 10:00:00 10:00:00 MO [facility] 2020-08-21 2020-08-21 Office Camilla [facility] 1.2.840.114 [id number] Univers 11:24:26 12:03:34 Visit Leslierandi Jeronimo 350.1.13.10 i ty of [place] 4.2.7.2.686 [facility] [id number] Id dical nal 085 [facility] 2020-08-21 2020-08-21 Outpatient R MAU SAMPSONDemetrio [facility] 10 [id number] Univers 11:20:00 11:20:00 CAMILLA FRANK i ty of [facility] 2020-08-21 2020-08-21 Orders Doctor [place] 1.2.840.114 [id number] Univers 00:00:00 00:00:00 Only Unassigned, KERRY 350.1.13.10 ity of [place] [facility] 4.2.7.2.686 Justin as [id number] [address] Results Test Description Test Time Test Comments Results Result Comments Source ALBUMIN/CREATININE RATIO, URINE, RANDOM 2023-01-12 03:01:49 Test Item Value Reference Range Interpretation Comme nts CREATININE, URINE, CONC. (test 49.9 MG/DL NOT ESTAB code = 2072) ALBUMIN, URINE, RANDOM (test 4.1 MG/DL NOT ESTAB code = 25816) CALC ALBUMIN/CREAT, RND (test 82 MG/G <30 H Note: Albumin/Creatinine ratio code = 71855) reference inte rval reflects ADA and NKF guideli emilia. [facility] has important patho logy staff changes effecti ve 01/18/2023. New patholo gy staff will provide uninter rupted, excellent patient care an d clinical consultation. S ee URL: [email or web address]. UNLESS OTHERWIS E INDICATED, ALL TESTING PERFORM ED AT CLINICAL PATHOLOGY [facility] [address] [place] [address] LABORATORY DIRE CTOR: RDUY AMOR M.D. CLIA NUMBER [id number] [place]. [id number] HEMOGLOBIN [id number] 02:57:16 Test Item Value Reference Range Interpretation Comments HEMOGLOBIN A1c (test 10.8 % 4.2-5.6 H AMERIC AN DIABETES code = 96715) ASSOCIATION IDELINES FOR HGB A1C: PREDIABETES/INC REASED [...] TESTING OR LABORATORY C ONSULTATION. COMPREHENSIVE METABOLIC [id number] 01:19:35 Test Item Value Reference Range Interpretation Comments GLUCOSE (test code = 209 MG/DL 70-99 H 2216) BUN (test code = 13 MG/DL 6-20 2207) CREATININE (test 0.56 MG/DL 0.60-1.30 L code = 221) eGFR (2020 CKD-EPI) 116 >60 (test code = 84158) ML/MIN/1.73 CALC BUN/CREAT (test 23 RATIO 6-28 code = 2235) SODIUM (test code = 142 MEQ/L 784-429 2664) POTASSIUM (test code 4.0 MEQ/L 3.5-5.4 = [...] 132 U/L 40-113 H (test code = 2203) AST (test code = 18 U/L 9-40 2217) ALT (test code = 19 U/L 2218) LIPID [id number] 01:19:35 Test Item Value Reference Range Interpretation [...] MOREINFORMATION , SEE CLIENT ANNOUNCE MENT AT [email or web address] RISK RATIO LDL/HDL 1.40 RATIO <3.22 (test code = 2238) HEMOGLOBIN [id number] 03:49:54 Test Item Value Reference Range Interpretation Comments HEMOGLOBIN A1c (test 11.6 % 4.2-5.6 H AMERIC AN DIABETES code = 60237) ASSOCIATION IDELINES FOR HGB A1C: PREDIABETES/INC REASED [...] ATE TESTING OR LABORATORY C ONSULTATION. UNLESS OTHERWI SE INDICATED, ALL TESTING [facility]FORMED [facility] [address] [place] [address] TROY LAXMI DIRECTOR: RUDY AMOR M.D. CLIA NUMBER [id number] CAP ACCREDITATION N O. [id number] CBC W/AUTO DIFF WITH [id number] 03:15:27 Test Item Value Reference Range Interpretation [...] RBCS 0.00 K/UL 0.00-0.11 (test code = 63443) SOFT [id number] 16:54:00 Test Item Value Reference Range Interpretation Comments SOFT TISSUE (test code = SOFTISSUE) RUN DATE: 12/24/21 [facility] PAGE 1 RUN TIME: 1655 Specimen Inquiry RUN USER: INTERFACE PATIENT: MARCE HUBBARD LOC: GUY U #: [id number] AGE/SX: 41/F ROOM: [facility] RE12/18/21[facility] DR: Lorena Mclain MSN : 78 BED: A DIS: 12/23/21 STATUS: DIS IN TLOC: SPEC #: [id number] RECD: 12/23/21 STATUS: DARRION REJohn #: [id number] TEO: 12/23/[address] [facility] [address]: Grant Laguna DPSavanah ENTERED: 12/23/21 SP TYPE: SOFT MASS OTHR DR: Benjamin Ramirez MD, Padmaja Pam MD Young, Lauren E NPORDERED: GROSS COPIES TO: Benjamin Ramirez MD [address] [place], [place] [address] Amelia Herr MD [address] [place], [place] [id number] Grant Laguna DPM [address] [place] [address] Rekha Lucio DELIVERY TABLE FEEDER [address] [place], [place] [id number] PROCEDURES: GROSS (12/24/21-1132) TISSUES: LEFT FOOT - SOFT TISSUE CLINICAL HISTORY COLLECTION DATE: 12/23/21 LEFT FOOT INFECTED NEUROPATHIC ULCER FINAL DIAGNOSIS Left foot, soft tissue, removal of devitalized soft tissues: SKIN AND SUBCUTANEOUS ADIPOSE TISSUE WITH EXTENSIVE NECROSIS AND ACUTE INFLAMMATION DMW/sm CONTINUED ON NEXT PAGE RUN DATE: 12/24/21 [facility] PAGE 2 RUN TIME: 1655 Specimen Inquiry RUN USER: INTERFACE SPEC #: [id number] PATIENT: MARCE HUBBARD #[id number] (Continued) --- FINAL DIAGNOSIS (Continued) D 84249 MACROSCOPIC The specimen is received in formalin, [...] in a single cassette. GROSS PERFORMED AT [facility] [address] [place] [address] (p)[phone] MICROSCOPIC All of the stains, including any controls performed, stain appropriately. MICROSCOPIC PERFORMED AT [facility] [address] [place] [address] (p)[phone] PERFORMING SITE Diagnosis performed at: [facility], ID [address] [place] [address] ---- Signed SIGNATURE ON FILE Radhika Yuen MD 12/24/21 9477 END OF REPORT [id number] 11:14:00 Test Item Value Reference Range Interpretation Comments GLUBED (test code = 121 mg/dL 74-106 H Performe d by certified GLUBED) 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 [facility] [id number] 06:21:00 Test Item Value Reference Range Interpretation Comments CREATININE (test code 0.70 mg/dL 0.55-1.02 N Note change in = CREAT) reference range due to change in reagent. [id number] 05:40:00 Test Item Value Reference Range Interpretation Comments GLUBED (test code = 169 mg/dL 74-106 H Performe d by certified GLUBED) 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 [facility] BASIC METABOLIC [id number] 00:54:00 Test Item Value Reference Range Interpretation [...] Modifi ed MDRD (test code = GFR) formula.[facility] kidney disease is defined as eith er kidney damageor GFR <60 mL/min/1.73 m2 for >3 months. [Automated mess age] The system [employer] generated this result transmitted ref erence range: [...] 8.5 mg/dL 8.5-10.1 N CA) CBC W/AUTO [id number] 00:44:00 Test Item Value Reference Range Interpretation [...] DIFF REQUIRED (test code NO = MDIFF) [id number] 22:20:00 Test Item Value Reference Range Interpretation Comments GLUBED (test code = 134 mg/dL 74-106 H Performe d by certified GLUBED) 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 [facility] [id number] 16:54:00 Test Item Value Reference Range Interpretation Comments GLUBED (test code = 170 mg/dL 74-106 H Performe d by certified GLUBED) 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 [facility] [id number] 12:13:00 Test Item Value Reference Range Interpretation Comments GLUBED (test code = 174 mg/dL 74-106 H Performe d by certified GLUBED) 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 [facility] [id number] 08:09:00 Test Item Value Reference Range Interpretation Comments GLUBED (test code = 122 mg/dL 74-106 H Performe d by certified GLUBED) 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 [facility] [id number] 06:29:00 Test Item Value Reference Range Interpretation Comments GLUBED (test code = 147 mg/dL 74-106 H Performe d by certified GLUBED) 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 [facility] [id number] 21:14:00 Test Item Value Reference Range Interpretation Comments GLUBED (test code = 233 mg/dL 74-106 H Performe d by certified GLUBED) 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 [facility] [id number] 15:42:00 Test Item Value Reference Range Interpretation Comments GLUBED (test code = 136 mg/dL 74-106 H Performe d by certified GLUBED) 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 ([facility])Name: MARCE HUBBARD : 1980 Sex: F FAX: Benjamin Ramirez MD [phone] [place]: St: ADM FAX: Amelia Herr FAX: Siddharth Heaton NP [phone] Name: MARCE HUBBARD [facility] : 1980 Age/S: 41/F [address] [facility] Unit #: [id number] Loc:V.3027 [place] [address] Phys: Siddharth Heaton NP Acct: [id number] Dis Date: Status: ADM IN PHONE #:[phone] Exam Date: 12/20/20211823 FAX #: [phone] Reason: foot diabetic ulcer, left EXAMS: CPT CODE: [id number] [place] [address] HISTORY: Diabetic foot ulcer. COMPARISON: X-ray from December 17, 2021. Location: [facility]. MRI left foot with without contrast: Diffuse [...] drainable abscess. No other fractures or other areasof abnormal enhancement to suggest osteomyelitis either. at 0851 Reported and signed by: Julius Escalante M.D. CC: Benjamin Ramirez MD; Amelia Herr MD; Siddharth Heaton NP Technologist: ABBEY SOMERSRT - MRI Trnmsrd Date/Time/By: 12/21/2021 (0877) : By: [email or web address] Orig Print D/T: S: 12/21/2021 (8054) PAGE 1 Signed [id number] 07:34:00 Test Item Value Reference Range Interpretation Comments GLUBED (test code 184 mg/dL 74-106 H Performed by certified = GLUBED) 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~ [id number] 21:38:00 Test Item Value Reference Range Interpretation Comments GLUBED (test code = 218 mg/dL 74-106 H Performe d by certified GLUBED) 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 [facility] [id number] 16:01:00 Test Item Value Reference Range Interpretation Comments VANCOMYCIN (test code = VANCO) 8.3 UG/ML 5.0-45.0 N [id number] 15:54:00 Test Item Value Reference Range Interpretation Comments GLUBED (test code = 228 mg/dL 74-106 H Performe d by certified GLUBED) 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 [facility] [id number] 12:28:00 Test Item Value Reference Range Interpretation Comments GLUBED (test code = 224 mg/dL 74-106 H Performe d by certified GLUBED) 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 [facility] [id number] 08:06:00 Test Item Value Reference Range Interpretation Comments GLUBED (test code = 236 mg/dL 74-106 H Performe d by certified GLUBED) 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 [facility] [id number] 06:13:00 Test Item Value Reference Range Interpretation Comments GLUBED (test code = 265 mg/dL 74-106 H Performe d by certified GLUBED) 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 [facility] [id number] 20:37:00 Test Item Value Reference Range Interpretation Comments GLUBED (test code = 200 mg/dL 74-106 H Performe d by certified GLUBED) 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 [facility] [id number] 17:08:00 Test Item Value Reference Range Interpretation Comments GLUBED (test code = 292 mg/dL 74-106 H Performe d by certified GLUBED) 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 [Automated mess age] The system [employer] generated this result transmit sukhjinder reference range [...] ALKP) to change in reagent. 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 [facility]2022-01-30 05:48:00 Test Item Value Reference Range Interpretation Comments GLUBED (test code = 152 mg/dL 74-106 H Performe d by certified GLUBED) 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 [facility]2022-01-29 21:03:00 Test Item Value Reference Range Interpretation Comments GLUBED (test code = 327 mg/dL 74-106 H Performe d by certified GLUBED) 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 [facility]2022-01-29 19:31:00 Test Item Value Reference Range Interpretation Comments GLUBED (test code = 223 mg/dL 74-106 H Performe d by certified GLUBED) 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 [facility]2022-01-29 11:05:00 Test Item Value Reference Range Interpretation Comments GLUBED (test code = 170 mg/dL 74-106 H Performe d by certified GLUBED) 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 [facility]2022-01-29 07:41:00 Test Item Value Reference Range Interpretation Comments GLUBED (test code = 255 mg/dL 74-106 H Performe d by certified GLUBED) 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 HEA RT, LUNG, AND BLOOD INST. HDL CHOLESTEROL [...] is a direct measurement.=== ====== THYROID STIMULATING [id number] 03:38:00 Test Item Value Reference Range Interpretation Comments THYROID STIMULATING 0.669 uIU/mL 0.36-3.74 N TSH REFE RENCE HORMONE (test code = RANGES: EUTHYROID: TSH) 0.35 - 4.3 mIU/ mL HYPO : > 5.5 mI U/mL HYPER : < 0.35 mIU/mL [id number] 03:28:00 Test Item Value Reference Range Interpretation Comments GLYCOSYLATED HEMOGLOBIN 13.0 % HbA1 SUGG SURINDERD (HA1C) (test code = DIAGNOSI S: HbA1C GLYHGB) (%) ---- ------ Diab etic >6.4Prediabetes 5.7 - 6.4Normal <5. 7 ESTIMATED AVERAGE 326 MG/DL GLUCOSE (test code = EAG) COVID 19 INHOUSE [id number] 01:28:00 Test Item Value Reference Range Interpretation Comments COVID 19 INHOUSE AG (test code = NEGATIVE NEGATIVE [id number]) URINALYSIS [id number] 22:30:00 Test Item Value Reference Range Interpretation Comments UA COLOR (test code = Light-Yellow YELLOW COLU) UA APPEARANCE (test CLEAR CLEAR IS THE S AMPLE code = APPU) FROM ER OR L&D? Y IF THE ANSWER I S NO,PLEASE DOCUMENT TWO RN SIGNATURES HERE - by [id number] 12/17/21 2764 UA GLUCOSE DIPSTICK >1000 (4+) mg/dL NEGATIVE [...] Clean Catch- XR FOOT 3 + V [id number] 22:04:00 [facility] 1980 Sex: F FAX: Zachery Cody APRN [phone] [place]: [address]: REG Name: MARCE HUBBARD [facility] : 1980 Age/S: 41/F [address] [facility] Unit #: [id number] Loc: [place] [address] Phys: Zachery NinoP Acct:[id number] Dis Date: Status: REG ER PHONE #: [phone] Exam Date: 12/17/2021 2135 FAX #: [phone] Reason: foot wound EXAMS: CPT CODE: [id number] XR FOOT 3 + [place] [address] 3 VIEWS LEFT FOOT Dictation Location: N13 [...] D/T: S: 12/17/2021 (2206) PAGE 1 Signed [id number] 22:02:00 Test Item Value Reference Range Interpretation Comments TROPONIN-HS (test <4.0 pg/mL 0-45 N CAUTION: U nits of the code = TROPI) current test m ethodology (pg/mL)differ f rom the prior test meth odology (ng/mL) by a fa ctorof 1000. LACTIC [id number] 22:02:00 Test Item Value Reference Range Interpretation Comments LACTIC ACID (test code = LACT) 0.8 mmol/L 0.4-1.9 N BASIC METABOLIC [id number] 22:02:00 Test Item Value Reference Range Interpretation [...] >3 months. [Automated mess age] The system [employer] generated this result transmitted ref erence range: [...] 9.2 mg/dL 8.5-10.1 N CA) HEPATIC FUNCTION [id number] 22:02:00 Test Item Value Reference Range Interpretation [...] ALKP) to change in reagent. CBC W/AUTO [id number] 21:45:00 Test Item Value Reference Range Interpretation [...] NO = MDIFF) - XR CHEST 1 [id number] 21:07:00 [facility])Name: MARCE HUBBARD : 1980 Sex: F FAX: Zachery Cody APRN [phone] [place]: [address]: REG Name: MARCE HUBBARD [facility] : 1980 Age/S: 41/F [address] [facility] Unit #: [id number] Loc: [place] [address] Phys: Zachery Nino Acct: [id number] Dis Date: Status: REG ER PHONE #: [phone] Exam Date: 12/17/20212045 FAX #: [phone] Reason: CODE SEPSIS EXAMS: CPT CODE: [id number] XR CHEST 1 V 98035 EXAM: Chest x-ray, one view; INFORMATION: Code sepsis; FINDINGS: There are fibrotic changes in the midlung rizzo bilaterally.No evidence of acute infiltrate; no edema; no effusions; no pneumothorax. Unremarkable cardiac mediastinal silhouette. IMPRESSION: 1. Bilateral pulmonary scarring. 2. No evidence of acute cardiothoracic abnormalities. Location code: [facility] at 2107 Reported and signed by: Petar Duarte M.D. CC: Zachery Nino Technologist:JHONATHAN FOFANA RT(R) Trnscrd Date/Time/By: 12/17/2021 (2106) : By: Shaka Orig Print D/T: S: (2109) PAGE 1 Signed ReportSEDIMENTATION [id number] 20:18:57 Test Item Value Reference Range Interpretation Comments ESR (test code = See_Comment H [Automated message] [id number]) The system [employer] generated this result transmitted ref erence range: 0 - 20 m m/HR. The reference r katrin was not used to interpret this result as normal/abnor mal. Lab Interpretation (test Abnormal code = 34308-8) [facility]. METABOLIC PANEL (39511)2021-12-17 19:53:54 Test Item Value Reference Range Interpretation Comments NA (test code = 134 mmol/L 135-145 L [id number]) K (test code = 4.0 mmol/L 3.5-5.0 9128225565) CL (test code = 100 mmol/L 98-108 2040974495) CO2 TOTAL (test code = 30 mmol/L 23-31 1133882665) AGAP (test code = 2-16 8238701974) BUN (test code = 16 mg/dL 7-23 0679747050) GLUCOSE (test code = 429 mg/dL 70-110 H 7110146789) CREATININE (test code = 0.52 mg/dL 0.50-1.04 3808864252) TOTAL BILI (test code = 0.5 mg/dL 0.1-1.7 9913081101) CALCIUM (test code = 8.8 mg/dL 8.6-10.6 2995632775) T PROTEIN (test code = 7.3 g/dL 6.3-8.2 2098189221) ALBUMIN (test code = 4.1 g/dL 3.5-5.0 7114967525) ALK PHOS (test code = 212 U/L 34-122 H 0813344729) ALTv (test code = 23 U/L 5-35 1742-6) AST(SGOT) (test code = 26 U/L 13-40 0401049563) eGFR (test code = mL/min/1.73m2 2989921757) JOHANNE (test code = JOHANNE) Association of [...] tests). Lab Interpretation Abnormal (test code = 12365-3) [facility] WITH [id number] 19:38:57 Test Item Value Reference Range Interpretation Comments WBC (test code = See_Comment [Automated 0302-2) message] The sy stem which generated this result transmitted reference range : 4.30 - 11.10 10*3/?L. The reference range was not used to interpret this result as normal/abnormal . RBC (test code = See_Comment [Automated 994-2) message] The sy stem which generated this [...] (test code = 37.5 fL 39.0-49.9 L 39201-1) RDW-CV (test code = 11.9 % 12.0-15.5 L 788-0) PLT (test code = See_Comment [Automated 777-3) message] The sy stem which generated this result transmitted reference range : 166 - 358 10*3/ ?L. The reference r katrin was not used to interpret this result as normal/abnormal . MPV (test code = 12.4 fL 9.5-12.9 70965-3) NRBC/100 WBC (test See_Comment [Automat ed code = 4570683218) message] The system which generated this result transmitted reference range : 0.0 - 10.0 /100 WBCs. The refer ence range was not u sed to interpret th is result as normal/abnormal . NRBC x10^3 (test code <0.01 See_Comment [Auto mated = 3407232564) message] The s ystem which generated this result transmitted reference range : 10*3/?L. The reference range was not used to interpret this result as normal/abnormal . GRAN MAT (NEUT) % 56.9 % (test code = 770-8) IMM GRAN % (test code 0.70 % = 7008091286) LYMPH % (test code = 31.8 % 736-9) MONO % (test code = 8.5 % 5905-5) EOS % (test code = 1.6 % 713-8) BASO % (test code = 0.5 % 706-2) GRAN MAT x10^3(ANC) 4.29 10*3/uL 1.88-7.09 (test code = 0271540690) IMM GRAN x10^3 (test 0.05 10*3/uL 0.00-0.06 code = 5890659459) LYMPH x10^3 (test code 2.40 10*3/uL 1.32-3.29 = 731-0) MONO x10^3 (test code 0.64 10*3/uL 0.33-0.92 = 742-7) EOS x10^3 (test code = 0.12 10*3/uL 0.03-0.39 711-2) BASO x10^3 (test code 0.04 10*3/uL 0.01-0.07 = 704-7) Lab Interpretation Abnormal (test code = 67023-5) [facility] [id number] [facility]:00:00 Test Item Value Reference Range Interpretation Comments HEMOGLOBIN A1c (test code = 32823) 13.5 % HEMOGLOBIN [id number] 00:00:00 Test Item Value Reference Range Interpretation Comments HEMOGLOBIN A1c (test code = 75574) 13.5 % HEMOGLOBIN [id number] 00:00:00 Test Item Value Reference Range Interpretation Comments HEMOGLOBIN A1c (test code = 63609) 13.5 % HEMOGLOBIN [id number] 00:00:00 Test Item Value Reference Range Interpretation Comments HEMOGLOBIN A1c (test code = 46772) 13.5 % HEMOGLOBIN [id number] 00:00:00 Test Item Value Reference Range Interpretation Comments HEMOGLOBIN A1c (test code = 37591) 13.5 % HEMOGLOBIN [id number] 00:00:00 Test Item Value Reference Range Interpretation Comments HEMOGLOBIN A1c (test code = 03619) 13.5 % CULTURE, [id number] 00:00:00 Test Item Value Reference Range Interpretation Comments CULTURE, URINE (test SPECIMEN NUMBER: code = 77497) [id number] CULTURE, [id number] 00:00:00 Test Item Value Reference Range Interpretation Comments CULTURE, URINE (test SPECIMEN NUMBER: code = 81230) [id number] CULTURE, [id number] 00:00:00 Test Item Value Reference Range Interpretation Comments CULTURE, URINE (test SPECIMEN NUMBER: code = 07191) [id number] CULTURE, [id number] 00:00:00 Test Item Value Reference Range Interpretation Comments CULTURE, URINE (test SPECIMEN NUMBER: code = 88554) [id number] SARS-CoV-2 (COVID-19) by RT-PCR (HIGH RISK)2020-06-25 00:00:00 Test Item Value Reference Range Interpretation Comments SARS-CoV-2 INTERPRETATION (test POSITIVE code = 43034) SOURCE (test code = 24306) NOT SPECIFIED SARS-CoV-2 (COVID-19) by RT-PCR (HIGH RISK)2020-06-25 00:00:00 Test Item Value Reference Range Interpretation Comments SARS-CoV-2 INTERPRETATION (test POSITIVE code = 03562) SOURCE (test code = 24734) NOT SPECIFIED SARS-CoV-2 (COVID-19) by RT-PCR (HIGH RISK)2020-06-25 00:00:00 Test Item Value Reference Range Interpretation Comments SARS-CoV-2 INTERPRETATION (test POSITIVE code = 63126) SOURCE (test code = 33291) NOT SPECIFIED SARS-CoV-2 (COVID-19) by RT-PCR (HIGH RISK)2020-06-25 00:00:00 Test Item Value Reference Range Interpretation Comments SARS-CoV-2 INTERPRETATION (test POSITIVE code = 44144) SOURCE (test code = 10848) NOT SPECIFIED CULTURE, [id number] 00:00:00 Test Item Value Reference Range Interpretation Comments CULTURE, URINE (test SPECIMEN NUMBER: code = 13597) [id number] CULTURE, [id number] 00:00:00 Test Item Value Reference Range Interpretation Comments CULTURE, URINE (test SPECIMEN NUMBER: code = 25559) [id number] CULTURE, [id number] 00:00:00 Test Item Value Reference Range Interpretation Comments CULTURE, URINE (test SPECIMEN NUMBER: code = 50858) [id number] CULTURE, [id number] 00:00:00 Test Item Value Reference Range Interpretation Comments CULTURE, URINE (test SPECIMEN NUMBER: code = 31575) [id number] MICROALBUMIN/CREATININE, RANDOM AND [id number] 00:00:00 Test Item Value Reference Range Interpretation Comments CREATININE, URINE, CONC. (test 63.4 MG/DL code = 2072) ALBUMIN, URINE, RANDOM (test code 1.0 MG/DL = 42725) CALC ALBUMIN/CREAT, RND (test code 16 MG/G = 62061) MICROALBUMIN/CREATININE, RANDOM AND [id number] 00:00:00 Test Item Value Reference Range Interpretation Comments CREATININE, URINE, CONC. (test 63.4 MG/DL code = 2072) ALBUMIN, URINE, RANDOM (test code 1.0 MG/DL = 78130) CALC ALBUMIN/CREAT, RND (test code 16 MG/G = 91500) MICROALBUMIN/CREATININE, RANDOM AND [id number] 00:00:00 Test Item Value Reference Range Interpretation Comments CREATININE, URINE, CONC. (test 63.4 MG/DL code = 2072) ALBUMIN, URINE, RANDOM (test code 1.0 MG/DL = 13732) CALC ALBUMIN/CREAT, RND (test code 16 MG/G = 91251) MICROALBUMIN/CREATININE, RANDOM AND [id number] 00:00:00 Test Item Value Reference Range Interpretation Comments CREATININE, URINE, CONC. (test 63.4 MG/DL code = 2072) ALBUMIN, URINE, RANDOM (test code 1.0 MG/DL = 10448) CALC ALBUMIN/CREAT, RND (test code 16 MG/G = 72429) COMPREHENSIVE METABOLIC [id number] 00:00:00 Test Item Value Reference Range Interpretation Comments GLUCOSE (test code = 2217) 292 MG/DL BUN (test code = 2208) 10 MG/DL CREATININE (test code = 2214) 0.41 MG/DL eGFR AMER. (test code 149 ML/MIN/1.73 = 33997) eGFR NON- AMER. (test 128 ML/MIN/1.73 code = 54410) CALC BUN/CREAT (test code = 24 RATIO [...] code = 2219) 19 U/L COMPREHENSIVE METABOLIC [id number] 00:00:00 Test Item Value Reference Range Interpretation Comments GLUCOSE (test code = 2217) 292 MG/DL BUN (test code = 2208) 10 MG/DL CREATININE (test code = 2214) 0.41 MG/DL eGFR AMER. (test code 149 ML/MIN/1.73 = 95051) eGFR NON- AMER. (test 128 ML/MIN/1.73 code = 07813) CALC BUN/CREAT (test code = 24 RATIO [...] CALC GLOBULIN (test code = 3.1 G/DL 224) CALC A/G RATIO (test code = 1.4 RATIO 2234) BILIRUBIN, TOTAL (test code = 0.6 MG/DL 2206) ALKALINE PHOSPHATASE (test 106 U/L code = 2204) AST (test code = 2218) 13 U/L ALT (test code = 2219) 19 U/L LIPID [id number] 00:00:00 Test Item Value Reference Range Interpretation Comments CHOLESTEROL (test code = 2210) 169 MG/DL TRIGLYCERIDES (test code = 2232) 100 MG/DL HDL CHOLESTEROL (test code = 2220) 75 MG/DL CALC LDL CHOL (test code = 2237) 75 MG/DL RISK RATIO LDL/HDL (test code = 1.00 RATIO 2238) LIPID [id number] 00:00:00 Test Item Value Reference Range Interpretation Comments CHOLESTEROL (test code = 2210) 169 MG/DL TRIGLYCERIDES (test code = 2232) 100 MG/DL HDL CHOLESTEROL (test code = 2220) 75 MG/DL CALC LDL CHOL (test code = 2237) 75 MG/DL RISK RATIO LDL/HDL (test code = 1.00 RATIO 2238) COMPREHENSIVE METABOLIC [id number] 00:00:00 Test Item Value Reference Range Interpretation Comments GLUCOSE (test code = 2217) 292 MG/DL BUN (test code = 2208) 10 MG/DL CREATININE (test code = 2214) 0.41 MG/DL eGFR AMER. (test code 149 ML/MIN/1.73 = 38559) eGFR NON- AMER. (test 128 ML/MIN/1.73 code = 47424) CALC BUN/CREAT (test code = 24 RATIO [...] code = 2219) 19 U/L COMPREHENSIVE METABOLIC [id number] 00:00:00 Test Item Value Reference Range Interpretation Comments GLUCOSE (test code = 2217) 292 MG/DL BUN (test code = 2208) 10 MG/DL CREATININE (test code = 2214) 0.41 MG/DL eGFR AMER. (test code 149 ML/MIN/1.73 = 96579) eGFR NON- AMER. (test 128 ML/MIN/1.73 code = 48225) CALC BUN/CREAT (test code = 24 RATIO [...] (test code = 2219) 19 U/L LIPID [id number] 00:00:00 Test Item Value Reference Range Interpretation Comments CHOLESTEROL (test code = 2210) 169 MG/DL TRIGLYCERIDES (test code = 2232) 100 MG/DL HDL CHOLESTEROL (test code = 2220) 75 MG/DL CALC LDL CHOL (test code = 2237) 75 MG/DL RISK RATIO LDL/HDL (test code = 1.00 RATIO 2238) LIPID [id number] 00:00:00 Test Item Value Reference Range Interpretation Comments CHOLESTEROL (test code = 2210) 169 MG/DL TRIGLYCERIDES (test code = 2232) 100 MG/DL HDL CHOLESTEROL (test code = 2220) 75 MG/DL CALC LDL CHOL (test code = 2237) 75 MG/DL RISK RATIO LDL/HDL (test code = 1.00 RATIO 2238) CBC W/AUTO [id number] 00:00:00 Test Item Value Reference Range Interpretation [...] code = 1015) 198 K/UL CBC W/AUTO [id number] 00:00:00 Test Item Value Reference Range Interpretation [...] code = 1015) 198 K/UL CBC W/AUTO [id number] 00:00:00 Test Item Value Reference Range Interpretation [...] (test code = 1015) 198 K/UL HEMOGLOBIN [id number] 00:00:00 Test Item Value Reference Range Interpretation Comments HEMOGLOBIN A1c (test code = 28850) 11.8 % HEMOGLOBIN [id number] 00:00:00 Test Item Value Reference Range Interpretation Comments HEMOGLOBIN A1c (test code = 20578) 11.8 % HEMOGLOBIN [id number] 00:00:00 Test Item Value Reference Range Interpretation Comments HEMOGLOBIN A1c (test code = 61456) 11.8 % CBC W/AUTO [id number] 00:00:00 Test Item Value Reference Range Interpretation [...] code = 1015) 198 K/UL CBC W/AUTO [id number] 00:00:00 Test Item Value Reference Range Interpretation [...] code = 1015) 198 K/UL CBC W/AUTO [id number] 00:00:00 Test Item Value Reference Range Interpretation [...] (test code = 1015) 198 K/UL HEMOGLOBIN [id number] 00:00:00 Test Item Value Reference Range Interpretation Comments HEMOGLOBIN A1c (test code = 87594) 11.8 % HEMOGLOBIN [id number] 00:00:00 Test Item Value Reference Range Interpretation Comments HEMOGLOBIN A1c (test code = 87940) 11.8 % HEMOGLOBIN [id number] 00:00:00 Test Item Value Reference Range Interpretation Comments HEMOGLOBIN A1c (test code = 73345) 11.8 % HEMOGLOBIN [id number] 00:00:00 Test Item Value Reference Range Interpretation Comments HEMOGLOBIN A1c (test code = 00709) 11.4 % HEMOGLOBIN [id number] 00:00:00 Test Item Value Reference Range Interpretation Comments HEMOGLOBIN A1c (test code = 91026) 11.4 % HEMOGLOBIN [id number] 00:00:00 Test Item Value Reference Range Interpretation Comments HEMOGLOBIN A1c (test code = 02520) 11.4 % COMPREHENSIVE METABOLIC [id number] 00:00:00 Test Item Value Reference Range Interpretation Comments GLUCOSE (test code = 2217) 349 MG/DL BUN (test code = 2208) 12 MG/DL CREATININE (test code = 2214) 0.63 MG/DL eGFR AMER. (test code 132 ML/MIN/1.73 = 18453) eGFR NON- AMER. (test 114 ML/MIN/1.73 code = 17134) CALC BUN/CREAT (test code = 19 RATIO [...] code = 2219) 14 U/L COMPREHENSIVE METABOLIC [id number] 00:00:00 Test Item Value Reference Range Interpretation Comments GLUCOSE (test code = 2217) 349 MG/DL BUN (test code = 2208) 12 MG/DL CREATININE (test code = 2214) 0.63 MG/DL eGFR AMER. (test code 132 ML/MIN/1.73 = 36906) eGFR NON- AMER. (test 114 ML/MIN/1.73 code = 23856) CALC BUN/CREAT (test code = 19 RATIO [...] (test code = 2219) 14 U/L LIPID [id number] 00:00:00 Test Item Value Reference Range Interpretation Comments CHOLESTEROL (test code = 2210) 185 MG/DL TRIGLYCERIDES (test code = 2232) 168 MG/DL HDL CHOLESTEROL (test code = 2220) 74 MG/DL CALC LDL CHOL (test code = 2237) 77 MG/DL RISK RATIO LDL/HDL (test code = 1.05 RATIO 2238) LIPID [id number] 00:00:00 Test Item Value Reference Range Interpretation [...] code = 2821) 0.348 UIU/ML CBC W/AUTO [id number] 00:00:00 Test Item Value Reference Range Interpretation [...] code = 1015) 241 K/UL CBC W/AUTO [id number] 00:00:00 Test Item Value Reference Range Interpretation [...] code = 1015) 241 K/UL CBC W/AUTO [id number] 00:00:00 Test Item Value Reference Range Interpretation [...] = 1015) 241 K/UL MICROALBUMIN/CREATININE, RANDOM AND [id number] 00:00:00 Test Item Value Reference Range Interpretation Comments CREATININE, URINE, CONC. (test 54.0 MG/DL code = 2072) MICROALBUMIN, RANDOM (test code = 0.4 MG/DL 41641) CALC MICROALB/CREAT RND (test code 7 MG/G = 52747) MICROALBUMIN/CREATININE, RANDOM AND [id number] 00:00:00 Test Item Value Reference Range Interpretation Comments CREATININE, URINE, CONC. (test 54.0 MG/DL code = 2072) MICROALBUMIN, RANDOM (test code = 0.4 MG/DL 11255) CALC MICROALB/CREAT RND (test code 7 MG/G = 07959) HEMOGLOBIN [id number] 00:00:00 Test Item Value Reference Range Interpretation Comments HEMOGLOBIN A1c (test code = 52992) 11.4 % HEMOGLOBIN [id number] 00:00:00 Test Item Value Reference Range Interpretation Comments HEMOGLOBIN A1c (test code = 09700) 11.4 % HEMOGLOBIN [id number] 00:00:00 Test Item Value Reference Range Interpretation Comments HEMOGLOBIN A1c (test code = 89008) 11.4 % COMPREHENSIVE METABOLIC [id number] 00:00:00 Test Item Value Reference Range Interpretation Comments GLUCOSE (test code = 2217) 349 MG/DL BUN (test code = 2208) 12 MG/DL CREATININE (test code = 2214) 0.63 MG/DL eGFR AMER. (test code 132 ML/MIN/1.73 = 36055) eGFR NON- AMER. (test 114 ML/MIN/1.73 code = 86193) CALC BUN/CREAT (test code = 19 RATIO [...] code = 2219) 14 U/L COMPREHENSIVE METABOLIC [id number] 00:00:00 Test Item Value Reference Range Interpretation Comments GLUCOSE (test code = 2217) 349 MG/DL BUN (test code = 2208) 12 MG/DL CREATININE (test code = 2214) 0.63 MG/DL eGFR AMER. (test code 132 ML/MIN/1.73 = 37552) eGFR NON- AMER. (test 114 ML/MIN/1.73 code = 13620) CALC BUN/CREAT (test code = 19 RATIO [...] BILIRUBIN, TOTAL (test code = 0.3 MG/DL 220) ALKALINE PHOSPHATASE (test 116 U/L code = 2204) AST (test code = 2218) 22 U/L ALT (test code = 2219) 14 U/L LIPID [id number] 00:00:00 Test Item Value Reference Range Interpretation Comments CHOLESTEROL (test code = 2210) 185 MG/DL TRIGLYCERIDES (test code = 2232) 168 MG/DL HDL CHOLESTEROL (test code = 2220) 74 MG/DL CALC LDL CHOL (test code = 2237) 77 MG/DL RISK RATIO LDL/HDL (test code = 1.05 RATIO 2238) LIPID [id number] 00:00:00 Test Item Value Reference Range Interpretation [...] code = 2821) 0.348 UIU/ML CBC W/AUTO [id number] 00:00:00 Test Item Value Reference Range Interpretation [...] code = 1015) 241 K/UL CBC W/AUTO [id number] 00:00:00 Test Item Value Reference Range Interpretation [...] code = 1015) 241 K/UL CBC W/AUTO [id number] 00:00:00 Test Item Value Reference Range Interpretation [...] = 1015) 241 K/UL MICROALBUMIN/CREATININE, RANDOM AND [id number] 00:00:00 Test Item Value Reference Range Interpretation Comments CREATININE, URINE, CONC. (test 54.0 MG/DL code = 2072) MICROALBUMIN, RANDOM (test code = 0.4 MG/DL 08501) CALC MICROALB/CREAT RND (test code 7 MG/G = 03654) MICROALBUMIN/CREATININE, RANDOM AND [id number] 00:00:00 Test Item Value Reference Range Interpretation Comments CREATININE, URINE, CONC. (test 54.0 MG/DL code = 2072) MICROALBUMIN, RANDOM (test code = 0.4 MG/DL 41387) CALC MICROALB/CREAT RND (test code 7 MG/G = 88051) HEMOGLOBIN [id number] 00:00:00 Test Item Value Reference Range Interpretation Comments HEMOGLOBIN A1c (test code = 87189) 11.8 % HEMOGLOBIN [id number] 00:00:00 Test Item Value Reference Range Interpretation Comments HEMOGLOBIN A1c (test code = 15189) 11.8 % HEMOGLOBIN [id number] 00:00:00 Test Item Value Reference Range Interpretation Comments HEMOGLOBIN A1c (test code = 27880) 11.8 % CBC W/AUTO [id number] 00:00:00 Test Item Value Reference Range Interpretation [...] code = 1015) 253 K/UL CBC W/AUTO [id number] 00:00:00 Test Item Value Reference Range Interpretation [...] code = 1015) 253 K/UL CBC W/AUTO [id number] 00:00:00 Test Item Value Reference Range Interpretation [...] code = 1015) 253 K/UL COMPREHENSIVE METABOLIC [id number] 00:00:00 Test Item Value Reference Range Interpretation Comments GLUCOSE (test code = 2217) 289 MG/DL BUN (test code = 2208) 15 MG/DL CREATININE (test code = 2214) 0.54 MG/DL eGFR AMER. (test code 140 ML/MIN/1.73 = 49469) eGFR NON- AMER. (test 121 ML/MIN/1.73 code = 39382) CALC BUN/CREAT (test code = 28 RATIO [...] code = 2219) 23 U/L COMPREHENSIVE METABOLIC [id number] 00:00:00 Test Item Value Reference Range Interpretation Comments GLUCOSE (test code = 2217) 289 MG/DL BUN (test code = 2208) 15 MG/DL CREATININE (test code = 2214) 0.54 MG/DL eGFR AMER. (test code 140 ML/MIN/1.73 = 00383) eGFR NON- AMER. (test 121 ML/MIN/1.73 code = 31942) CALC BUN/CREAT (test code = 28 RATIO [...] (test code = 2219) 23 U/L LIPID [id number] 00:00:00 Test Item Value Reference Range Interpretation Comments CHOLESTEROL (test code = 2210) 169 MG/DL TRIGLYCERIDES (test code = 2232) 144 MG/DL HDL CHOLESTEROL (test code = 2220) 64 MG/DL CALC LDL CHOL (test code = 2237) 76 MG/DL RISK RATIO LDL/HDL (test code = 1.19 RATIO 2238) LIPID [id number] 00:00:00 Test Item Value Reference Range Interpretation [...] (test code = 2821) 0.4 UIU/ML HEMOGLOBIN [id number] 00:00:00 Test Item Value Reference Range Interpretation Comments HEMOGLOBIN A1c (test code = 90032) 11.8 % HEMOGLOBIN [id number] 00:00:00 Test Item Value Reference Range Interpretation Comments HEMOGLOBIN A1c (test code = 35944) 11.8 % HEMOGLOBIN [id number] 00:00:00 Test Item Value Reference Range Interpretation Comments HEMOGLOBIN A1c (test code = 34840) 11.8 % CBC W/AUTO [id number] 00:00:00 Test Item Value Reference Range Interpretation [...] code = 1015) 253 K/UL CBC W/AUTO [id number] 00:00:00 Test Item Value Reference Range Interpretation [...] code = 1015) 253 K/UL CBC W/AUTO [id number] 00:00:00 Test Item Value Reference Range Interpretation [...] code = 1015) 253 K/UL COMPREHENSIVE METABOLIC [id number] 00:00:00 Test Item Value Reference Range Interpretation Comments GLUCOSE (test code = 2217) 289 MG/DL BUN (test code = 2208) 15 MG/DL CREATININE (test code = 2214) 0.54 MG/DL eGFR AMER. (test code 140 ML/MIN/1.73 = 78956) eGFR NON- AMER. (test 121 ML/MIN/1.73 code = 80067) CALC BUN/CREAT (test code = 28 RATIO 2235) SODIUM (test code = 2231) 137 MEQ/L POTASSIUM (test code = 2228) 3.7 MEQ/L CHLORIDE (test code = 2215) 96 MEQ/L CARBON DIOXIDE (test code = 23 MEQ/L 6) CALCIUM (test code = 2209) 8.9 MG/DL [...] code = 2219) 23 U/L COMPREHENSIVE METABOLIC [id number] 00:00:00 Test Item Value Reference Range Interpretation Comments GLUCOSE (test code = 2217) 289 MG/DL BUN (test code = 2208) 15 MG/DL CREATININE (test code = 2214) 0.54 MG/DL eGFR AMER. (test code 140 ML/MIN/1.73 = 47994) eGFR NON- AMER. (test 121 ML/MIN/1.73 code = 68854) CALC BUN/CREAT (test code = 28 RATIO [...] (test code = 2219) 23 U/L LIPID [id number] 00:00:00 Test Item Value Reference Range Interpretation Comments CHOLESTEROL (test code = 2210) 169 MG/DL TRIGLYCERIDES (test code = 2232) 144 MG/DL HDL CHOLESTEROL (test code = 2220) 64 MG/DL CALC LDL CHOL (test code = 2237) 76 MG/DL RISK RATIO LDL/HDL (test code = 1.19 RATIO 2238) LIPID [id number] 00:00:00 Test Item Value Reference Range Interpretation [...] UIU/ML Notes Date/Time Note Provider Source 2022-01-03 11:49:00 [id number] [facility] PATIENT NAME: MARCE HUBBARD ADMIT DATE: 12/18/21ACCOUNT NO: [id number] ROOM NO: [facility] AGE: 41 REPORT TYPE: 360 - QUERY RESPONSE DOCUMENT SEX: F DATE OF : 76ADMITTING PHYSICIAN:Amelia Herr MD ATTENDING PHYSICIAN:Lorena Mclain Provider Query QUERY TEXT: Condition General 360MD Query related questions should be directed to: [facility] Coding Query Helpline Based on your clinical judgement, can you please clarify if Sepsis was confirmed, Sepsis not confirmed, or other more appropriate diagnosis? The patient's Clinical Indicators include:sepsis due to diabetic foot ulcer. Hospitalist History and Physical 12/18/2021epsis. Hospitalist Progress Note 12/21/2021left foot ulcer with unstageable ulcer/cellulitis. Hospitalist Discharge Summary 12/23/2021WBC (4.5 - 12.5 K/mm3) 8.4. ED PHYSICIAN RECORD 2Pulse 100. ED PHYSICIAN RECORD 12/17/2021Temp 36.5. ED PHYSICIAN RECORD 2Resp 18 ED PHYSICIAN RECORD 12/17/2021eftriaxone IV. MAR Options provided:-- Respond - Create new note now-- Dismiss - Not applicable / Not valid-- Dismiss - Clinically unable to determine / Unknown-- Assig n to another provider QUERY RESPONSE: Sepsis not confirmed Query created by: WILFRID NAIDU on 12/28/2021 6:21 AM at 1149 PATIENT NAME: MARCE HUBBARD noteV.[id number] for patient [id number]:49:20 2021-12-23 13:31:00 [id number]:31:00 [facility] ([facility])Hospitalist Gia kelley SummaryREPORT#:[id number] REPORT STATUS: SignedDATE:12/23/21 TIME: 1331 PATIENT: MARCE HUBBARD UNIT #: [id number]#: [id number] [address] [birth year] AGE: 41 SEX: F ATTEND: Lorena Mclain MSNADM AUTHOR: Lorena Mclain MSN * ALL edits or amendments must be made on the electronic/computer document * General InformationDate of admission:Observation Start Date: Date of admission: 12/18/21 Discharge date : 12/23/21Hospital course:left foot ulcer with unstageable ulcer/cellulitisMRI foot noted, concerning for possible osteomyelitis vs stress fracturearterial with mild PAD, venous doppler negative for DVTcontinue Doxy2/3 S/P debridementf/u with Dr Sun for wound care/wor k clearance post-op shoe and crutches arranged prior to dc partial weight bearing of LLEok to d c home per podiatry rec 3. [id number] home meds HgA1c 13.0recent change of diabetes meds at home , patient advised to f/u with A1c in 3 months 4. HTNcontinue Lisinopril 5. Obesity, BMI 31.8dietary restrictions Consultants: podiatryPt . condition on discharge: improved, stable Free Text DxA P NotesFree text DxA P notes: Med Rec Med RecDischarge meds:Continue taking these medications:metFORMIN (GLUCOPHAGE) 1,000 MG TAB 1,000 MILLIGRAM ORAL TWICE DAILY. Instructions: TAKE WITH MEALS glipiZIDE (GLUCOTROL) 10 MG TAB 10 MILLIGRAM ORAL TWICE DAILY. Insulin Aspart Prot/Insuln Asp (NovoLOG Mix 70-30 FLEXPEN (15mL)) 100 UNIT/ML (70-30) PEN.INJCTR TWICE DAILY. Start taking the following new medications:LISINOPRIL (ZESTRIL) 10 MG TAB 10 MILLIGRAM ORAL DAILY. Qty = 30 No Refills DOXYCYCLINE HYCLATE (VIBRAMYCIN) 100 MG CAP 100 MILLIGRAM ORAL EVERY 12 HOURS. Qty = 20 No Refills traMADol (ULTRAM) 50 MG TAB 50 MILLIGRAM ORAL EVERY 6 HOURS NEEDED. as needed for PAIN SCALE 4-6 Moderate Qty = 20 No Refills ObjectiveVS/I OLast Documented: Result Date Time Pulse Ox 97 12/23 111 B/P 125/80 12/23 111 B/P Mean 94.7 12/23 111 Temp 97.7 12/23 1112 Pulse 85 12/23 1112 Resp 18 12/23 111 O2 Delivery Room air 12/23 1055 24 hour I O ending at 0700: 12/23 0700 12/22 1900 Intake Total 250 Output Total Balance 250 Intake, Oral 250 General appearance: alert, awake, orientedHead/Eyes: atraumatic, EOMI, normocephalicENT: moist mucosa l membranes, normal ear left, normal ear rightNeck : full range of motion, non-tender, normal thyroid , supple/no meningismus, no bruit/NL carotids, no JVD, no masses or swellingCardiovascular: normal heart sounds, regular rate rhythm, no murmurRespiratory: aerating well, symmetric expansion, no distressAbdomen: non-tender, soft, no distention, no guardingExtremities: moves all , normal range of motion, no cyanosisMusculoskeletal: normal inspection, painless range of motionNeuro/WELT RANDER: alert, oriented X 3, CNII-XII intact, normal speech, reflexes equal bilat, no motor deficits, no sensory deficitsSkin: dry, intactPsychiatry: normal affect, normal judgment/insight, normal mood, not homicidal, not suicidal ResultsFindings/Data:Laboratory Tests: 12/23 12/23 12/23 12/23 12/22 1112 0539 0526 0018 2219Chemistry Sodium (136 - 145 mmol/L) 139 Potassium (3.5 - 5.1 mmol/L) 3.7 Chloride (98 - 107 mmol/L) 105.0 Carbon Dioxide (21 - 32 mmol/L) 26.0 Anion Gap (10 - 20) 11.7 BUN (7 - 1 8 mg/dL) 14 Creatinine (0.55 - 1.02 mg/dL) 0.70 0.70 Glomerular Filtr Rate (>=60 mL/min) > 60 BUN/Creatinine Ratio (10 - 20) 19.4 Glucose (74 - 106 mg/dL) 148 H POC Glucose (74 - 106 mg/dL) 12 1 H 169 H 134 H Calcium (8.5 - 10.1 mg/dL) 8.5Hematology WBC (4.5 - 12.5 K/mm3) 8.2 RBC (3. 7 - 5.2 mill/mm3) 4.67 Hgb (11.5 - [...] (39.0 - 69.0 %) 55.7 Lymph % (Auto ) (25.0 - 55.0 %) 32.0 [place] % (Auto) (0.0 - 10.0 % ) 9.1 Eos % (Auto) (0.0 - 5.0 %) 1.8 Baso % (Auto) (0.0 - 1.0 %) 0.5 Neut # (Auto) (1.8 - 7.7 K/mm3 ) 4.57 Lymph # (Auto) (1.0 - 5.0 K/mm3) 2.62 [place] # (Auto) (0 - 0.8 K/mm3) 0.75 Eos # (Auto) (0.0 - 0.5 K/mm3) 0.15 Baso # (Auto) (0.0 - 0.2 K/mm3) 0.04 Add Manual Diff NO Nucleated RBC % (0 - 0 % ) 0.0 Nucleated RBCs # (Man) (0.0 - 0.1 0.00K/mm3) 12/22 1619 Chemistry POC Glucose (74 - 106 mg/dL) 170 H Results: vital signs reviewed Discharge Instructions PCPPCP follow-up:PCP: Benjamin Ramirez MD Discharge to: Home/Self CareAdditional Discharge Routines: PCP Follow-Up , Vice President Of Manufacturing Follow-UpDiet: Diabetic, CardiacActivity: As ToleratedPrescriptions: e-prescribeDischarge management: greater than 30 mins, face to face encounter Follow-up AppointmentsPCP follow-up: PCP: Benjamin Ramirez MD PCP follow up timeframe: In 1-2 weeksAttending Physician: Attending Physician: Josr Mcneill MDConsulting provide r 1: Provider 1: Juan Carlos Jarvis DPM Specialty: Podiatry Consult follow up timeframe: In 1-2 weeks Treatments ProceduresLab:Chemistry last 24 hrs: 12/23 12/23 0526 0018 Chemistry Sodium (136 - 145 mmol/L) 13 9 Potassium (3.5 - 5.1 mmol/L) 3.7 Chloride [...] - 69.0 %) 55.7 Quality: Discharge Current MedicationsCurrent medication review:I attest that the foregoing medication list in the medical record is true, accurate, and complete t o the best of my knowledge. at 1335 at 4376 RPT #:[id number] OF REPORTDSDischarge [id number]:31:00V.[id number] v ailable for patient [id number]:36:06 2021-12-23 12:03:00 [id number]:03:00 [facility] ([facility])Podiatry Progress NoteREPORT#:[id number] REPORT STATUS: SignedDATE:12/23/21 TIME: 1203 PATIENT: MARCE HUBBARD UNIT #: [id number]#: [id number] [address] [birth year] AGE : 41 SEX: F ATTEND: Lorena Mclain MSNADM AUTHOR: Grant Laguna DPSavanah * ALL edits or amendments must be made on the electronic/computer document * SubjectiveHPI:41 yo female was seen for ulcer on left foot Objective GeneralVS:Last Documented: Result Date Time Pulse Ox 97 12/23 1112 B/P 125/80 12/23 111 2 B/P Mean 94.7 12/23 1112 Temp 97.7 12/23 1112 Pulse 85 12/23 1112 Resp 18 12/23 1112 O2 Delivery Room air 12/23 1055 O2 Flow Rate 8 02/0 3 1042 PATIENT WEIGHT: Weight (lb): 209Weight (oz) : 7.03Weight (kg): 95.000 Medications:Active Meds + DC'd Last 24 HrsAcetaminophen (TYLENOL) 0 .STK-MED ONE PO (DC) Gabapentin (NEURONTIN) 0 .STK-MED ONE .ROUTE (DCr) Acetaminophen (TYLENOL ) 0 .STK-MED ONE .ROUTE (DC) Acetaminophen (TYLENOL) 650 MG PACU ONCE ONE PO (DC) Acetaminophen (TYLENOL EXTRA STRENGTH) 500 MG PACU ONCE PRN PRN PO Diphenhydramine HCl (diphenhydrAMINE HCL) 12.5 MG PROCEDURE PRN IV Fentanyl Citrate (SUBLIMAZE INJ. 2ML) 25 MCG Q5M PRN PRN IV Gabapentin (NEURONTIN) 300 MG PACU ONCE ONE PO (DC) Hydrocodone Bitart/Acetaminophe n (NORCO 5/325 TABLET) 1 TAB PACU ONCE PRN PRN PO Hydromorphone HCl (HYDROmorphone HCL) 1 MG Q10M PRN PRN IV Lidocaine (LIDODERM 5% PATCH) 1 PATCH PACU ONCE ONE TOPICAL (DC) Metoclopramide HCl (METOCLOPRAMIDE HCL) 10 MG ONCE PRN IV Morphine Sulfate (morphine SULFATE) 2 MG Q5M PRN PRN IV Morphine Sulfate (morphine SULFATE) 4 MG Q5M PRN PRN IV Ondansetron HCl (ondansetron HCL) 4 MG ONCE PRN IV Promethazine HCl (PHENERGAN) 12.5 MG PROCEDURE IM (CKD) Glycopyrrolate (GLYCOPYRROLATE) 0 .STK-MED ONE .ROUTE (DC) Lidocaine HCl (LIDOCAINE HCL 1%) 0 .STK-MED ONE .ROUTE (DC) Lidocaine HCl (LIDOCAINE HCL 2% PF) 0 .STK-MED ONE .ROUTE (DC) Ondansetron HCl (ondansetron HCL) 0 .STK-MED ONE .ROUTE (DCr) Bupivacaine HCl (BUPIVACAINE HCL) 0 .STK-MED ONE .ROUTE (DC) Fentanyl Citrate (SUBLIMAZE INJ. 2ML ) 0 .STK-MED ONE .ROUTE (DC) Metoclopramide HCl (METOCLOPRAMIDE HCL) 0 .STK-MED ONE .ROUTE (DC) Midazolam HCl (VERSED) 0 .STK-MED ONE .ROUTE (DCr) Propofol (propofoL) 20 ML .STK-MED ONE IV (DC) Vancomycin HCl (VANCOMYCIN HCL) 1,000 MG Q8 H IV Sodium Chloride (SODIUM CHLORIDE 0.9%) 250 MLInsulin Lispro Protam/Lispro Human (HumaLOG OH X 75/25) 25 UNITS BID 6A 6P SUBQ Miscellaneous Information (VANCOMYCIN PHARMACY TO DOSE) 1 EACH ASDIR IV (CKD) Ceftriaxone Sodium (ROCEPHIN) 1,000 MG DAILY IV Sodium Chloride (SODIUM CHLORIDE 0.9% PF) 10 MLLisinopril (lisinopriL) 1 0 MG DAILY PO Insulin Human Lispro (HUMALOG) S/SCALE HIGH AC HS SUBQ Acetaminophen (TYLENOL EXTRA STRENGTH) 500 MG Q6H PRN PRN PO Calcium Carbonate (TUMS 500MG) 1,000 MG Q6H PRN PRN PO Dextrose/Water (DEXTROSE 50%-WATER) 50 ML ASDIR PRN IV (CKD) Hydrocodone Bitart/Acetaminophen (NORCO 5/325 TABLET) 1 TAB Q6H PRN PRN PO (DC) Melatonin (MELATONIN) 6 MG BEDTIME PRN PRN PO Simethicone (SIMETHICONE) 80 MG Q6H PRN PRN PO Tramadol HCl (ULTRAM) 50 MG Q6H PRN PRN PO I O:2 4 hour I O ending at 0700: 12/23 0700 12/22 1900 Intake Total 250 Output Total Balance 250 Intake, Oral 250 Nutrition assessment:The data set between the solid lines has been imported from the dietitian's assessment. Any exceptions have been noted under Provider comments. _ BMI Calculated: 31.8Nutrition related diagnosis: Nutrition diagnosis details: Nutrition problem: Nutrition etiology: Nutrition signs and symptoms: Nutritio n prescription: Dietitian name: Assessment completed: _ Provider comments on imported dietitian assessment: Physical ExamWound/incision: Location:Left foot wound noted with eschar base along lateral and dorsal foot with erythema noted, no fluctuant, no mal odor, no tracking, no mal odor-erythema is improvedHead/Eyes: atraumaticENT: normal dentitionNeck: full range of motionCardiovascular: normal capillary refillAbdomen: soft, non-tenderGenitourinary: no t indicated, deferredExtremities:Left moves all, Right moves allLE vascular pulse assess:Palpable L posterior tibialis, Palpable L dorsalis pedisCapillary refill: Capillary refill (in seconds): < 3 seconds Left footNeuro/WELT RANDER: alert, oriented X 3 ResultsFindings/Data:Laboratory Tests: 12/23 12/23 12/23 12/23 12/22 1112 [...] > 60 BUN/Creatinine Ratio (10 - 20) 19. 4 Glucose (74 - 106 mg/dL) 148 H POC Glucose (74 - 106 mg/dL) 121 H 169 H 134 H Calcium (8.5 - 10.1 mg/dL) 8.5 Hematology WBC (4.5 - 12.5 K/mm3) 8. 2 RBC (3.7 - 5.2 mill/mm3) 4.67 Hgb (11.5 - 15.5 gram/dL) 13.5 Hct (36.0 - 46.0 %) 40.8 MCV (80 - 98 fL) 87.4 MCH (27.0 - 33.0 picogram) 28.9 MCH C (33.0 - 36.0 gram/dL) 33.1 RDW (11.6 - 16.2 %) 12.5 RDW Std Deviation (37.0 - 51.0 fL) 39.6 Plt Count (150 - 450 K/mm3) 206 MPV (6.7 - 11.0 fL) 12.0 H Neut % (Auto) (39.0 - 69.0 %) 55.7 Lymph % (Auto) (25.0 - 55.0 %) 32.0 [place] % (Auto) (0.0 - 10.0 %) 9.1 Eos % (Auto) (0.0 - 5.0 %) 1.8 Baso % (Auto) (0.0 - 1.0 %) 0.5 Neut # (Auto) (1.8 - 7.7 K/mm3) 4.57 Lymph # (Auto) (1.0 - 5.0 K/mm3) 2.62 [place] # (Auto) (0 - 0.8 K/mm3) 0.75 Eos # (Auto) (0.0 - 0.5 K/mm3) 0.15 Baso # (Auto) (0.0 - 0.2 K/mm3) 0.04 Add Manual Diff NO Nucleated RBC % (0 - 0 %) 0.0 Nucleated RBCs # (Man) (0.0 - 0.1 K/mm3) 0.00 02/02 1619 Chemistry POC Glucos e (74 - 106 mg/dL) 170 H Diagnosis, Assessment PlanFree Text A P:41 yo female was seen for unstageable ulcer with cellulitis left foot Xray left foot No acute abnormality by plain film. Small heel spur. Recommend abx per primary teamrecommend [facility] ordered Awaiting final images for treatment plan . In the interim, recommend abx Thank you for the consultation 12/19/2021ecommend abx per primary teamrecommend elvate left lower extremityMRI results pendingarterial doppler results pending 2Recommend abx [facility] lower extremityMRI results pendingarterial doppler results pendingno significant changes 12/21/2021ecommend abx per primary [facility]re[facility] lower extremityMRI results Oblique fracture line visible within the [...] having this wound. Discussed with patient to khanh kelley possible debridement, pending arterial doppler results 12/22/2021rterial doppler resultsMild plaque with <50% stenosis in left lower extremityRecommend abx per primary teamrecommend elevate left lower extremity Discussed with the patient all associated risks, benefits, alternative, I discussed risks which include but not limited to: Non-healing wound, inability to ambulate, further surgeries, infection, blood loss, limb loss and possible life loss. Pt expressed understanding and wish to proceed with the surgery.Pt is scheduled on 12/23/2021 to have left foot excisional removal of devitalized soft tissues NPO ordered 12/23/2021 Patient is cleared from the foot and ankle standpoint for discharge . Patient is to follow-up within 1 week days of discharge. The patient is to call [phone] t o reestablish an appointment on an outpatient setting. Do not get the area wet. Strict nonweightbearing. Elevation. Recommend antibiotics as per primary care recommendation post op shoe ordered Consultants: podiatry at 2329 RPT #:[id number] OF REPORTPRProgress [id number]:03:00V.[id number] jf able for patient [id number]:29:40 2021-12-23 10:22:00 [id number]:22:00 [facility] ([facility])Operative Note - FullREPORT#:[id number] REPORT STATUS: SignedDATE:12/23/21 TIME: 1022 PATIENT: MARCE HUBBARD UNIT #: [id number]#: [id number] [address] [birth year] AGE : 41 SEX: F ATTEND: Lorena Mclain MSNADM AUTHOR: Grant Laguna DPM * ALL edits or amendments must be made on the electronic/computer document * Operative ReportStart date: 12/23/21Start time: 45Pre-procedure diagnosis:left foot infected neuropathic ulcerPost-procedure diagnosis:left foot infected neuropathic ulcerProcedures performed:Left foot excisional removal of devitalized soft tissuesTechnique/Procedure:ANESTHESIA: General HEMOSTASIS: None. ESTIMATED BLOOD LOSS: 5 mL. MATERIALS: none INJECTABLES: 18 mL of 1:1 1% lidocaine and 0.25% marcaine to left ankle COMPLICATIONS: None. PROCEDURE IN DETAIL The patient was consented for left foot excisional removal of devitalized soft tissues. The patient understands. I have discussed all associated risks, benefits, and alternatives. I have discussed the associated risks, which include bu t are not limited to spread of infection, further necrosis, limb loss,inability to walk, nonhealin g wound, life loss. The patient understands and wishes to proceed. No guarantees have been given to the patient. The consent was identified, witnessed, and signed. The patient was then transferred to the OR and left on the operating table. Following general anesthesia, the left foot was then prepped and draped in the usualsterile fashion. Left foot Excsional remova l of devitalized soft tissues Attention was directed to dorsal left foot where eschar base was noted, a #15 blade was used to remove all devitalized subcutaneous tissues using # 15 blad e to healthy bleeding tissues. The surgical site was irrigated with normal saline. Deep wound culture and anaerobic culture were taken. The devitalized soft tissues were sent for pathology . The surgical site was dressed with adaptic, wet to dry, 4x4 sterile gauze, kerlix. 18 mL of 1:1 1% lidocaine and 0.25% marcaine was injected to leftankle The patient tolerated the procedure well and was transferred to the recovery room with all vital signs stable and vascular status intact to the foot. Following postoperative monitoring the patient will be transfer to floor Primary Surgeon: Dr. Frausto(s): noneAnesthesia: general anesthesiaOperative findings:1) devitalized soft tissues2) flushed with normal saline3) wound culture taken4) injected with 18 cc of 1% lidocaine and 0.25% marcaine5) dressed with adaptic, wet to dry, 4x4 sterile gauze, kerlix Complications: noneEstimated blood loss in ml's: less than 5 ccSpecimens removed/altered: devitalized soft tissuesImplant(s): none at 2328 RPT #:[id number] OF REPORTOPOperative [id number]:22:00V.[id number] a ilable for patient jesvCUHSHNVPZSADTX8616-65-13X56:28:50 2021-12-23 10:19:00 [id number]:19:00 [facility] ([facility])Brief Op NoeREPORT#:[id number] REPORT STATUS: SignedDATE:12/23/21 TIME: 1019 PATIENT: MARCE HUBBARD UNIT #: [id number]#: [id number] ROOM/BED: [facility]-ADOB: [birth year] AGE : 41 SEX: F ATTEND: Lorena Mclain MSNADM AUTHOR: Grant Laguna DPM * ALL edits or amendments must be made on the electronic/computer document * Op/Inv Proc Note - BriefPre-procedure diagnosis:left foot infected neuropathic ulcerPost-procedure diagnosis: same as pre procedure dxProcedures performed:Left aby t excisional removal of devitalized soft tissuesPrimary Surgeon:Dr. Ugaldet(s): noneFindings:1) devitalized soft tissues2) flushed with normal saline3) wound culture taken4) injected with 18 cc of 1% lidocaine and 0.25% marcaine5) dressed with adaptic, wet to dry, 4x4 sterile gauze, kerlix Complications: noneEstimated blood loss in ml's: less than 5 ccSpecimens removed/altered: devitalized soft tissues at 1021 RPT #:[id number] OF REPORTOPOperative [id number]:19:00V.[id number] a ilable for patient [id number]:22:21 2021-12-23 09:20:00 [id number]:20:00 [facility] ([facility]Post Anesthesia EvaluationREPORT#:[id number] REPORT STATUS: SignedDATE:12/23/21 TIME: 919 PATIENT: MARCE HUBBARD UNIT #: [id number]#: [id number] [address] [birth year] AGE : 41 SEX: F ATTEND: Lorena Mclain MSNADM AUTHOR: Brett Quispe DO * ALL edits o r amendments must be made on the electronic/computer document * Post Anesthesia Evaluation Anes. changes from pre-op evalORM Surgeries: Surgery Date and Time: 12/23/2021 090 0 Primary Procedure: LT FOOT DEBRIDEMENT Anesthetic: general LMADate: 12/23/21Level of consciousness: no change, patient awake, able to answer questions, participate in this eval.Vital signs:Last Documented: Result Date Time Pulse O x 97 12/23 1112 B/P 125/80 12/23 1112 B/P Mean 94. 7 12/23 1112 Temp 36.5 12/23 1112 Pulse 85 12/23 1112 Resp 18 12/23 1112 O2 Delivery Room air 12/23 1055 O2 Flow Rate 8 12/23 1042 Cardiovascular: no change, CV system stable, vital signs stableRespiratory/Airway: respirator y system stable, maintains without supportPain: adequately controlled, pain med. administeredHydration: adequateTemp status: greater than 96.8FPresence of N/V: noAnesthesia complications: noOther changes requiring f/u: noneConclusions: no apparent anes. issues, outpt s eval prior DC home at 2352 RPT #:[id number] OF REPORTPRProgress [id number]:20:00V.[id number] jf able for patient [id number]:52:26 2021-12-22 15:43:00 [id number]:43:00 [facility] ([facility])Podiatry Progress NoteREPORT#:[id number] REPORT STATUS: SignedDATE:12/22/21 TIME: 1543 PATIENT: MARCE HUBBARD UNIT #: [id number]#: [id number] [address] [birth year] AGE : 41 SEX: F ATTEND: Lorena Mclain MSNADM AUTHOR: Grant Laguna DPM * ALL edits or amendments must be made on the electronic/computer document * SubjectiveHPI:41 yo female was seen for ulcer on left foot. Objective GeneralVS:Last Documented: Result Date Time Pulse Ox 97 12/22 1159 B/P 142/92 12/22 115 9 B/P Mean 108.4 12/22 1159 Temp 98.1 12/22 1159 Pulse 88 12/22 1159 Resp 20 12/22 1159 O2 Delivery Room air 12/22 0734 O2 Flow Rate 4 11/22 1 6831 PATIENT WEIGHT: Weight (lb): 209Weight (oz) : 7.03Weight (kg): 95.000 Medications:Active Meds + DC'd Last 24 HrsVancomycin HCl (VANCOMYCIN HCL ) 1,000 MG Q8H IV Sodium Chloride (SODIUM CHLORIDE 0.9%) 250 MLInsulin Lispro Protam/Lispro Human (HumaLOG MIX 75/25) 25 UNITS BID 6A 6P SUBQ Miscellaneous Information (VANCOMYCIN PHARMACY T O DOSE) 1 EACH ASDIR IV (CKD) Ceftriaxone Sodium (ROCEPHIN) 1,000 MG DAILY IV Sodium Chloride (SODIUM CHLORIDE 0.9% PF) 10 MLLisinopril (lisinopriL) 10 MG DAILY PO Insulin Human Lispro (HUMALOG) S/SCALE HIGH AC HS SUBQ Acetaminophen (TYLENOL EXTRA STRENGTH) 500 MG Q6H PRN PRN PO Calcium Carbonate (TUMS 500MG) 1,000 MG Q6H PRN PRN PO Dextrose/Water (DEXTROSE 50%-WATER) 50 ML ASDIR PRN IV (CKD) Hydrocodone Bitart/Acetaminophen (NORCO 5/325 TABLET) 1 TAB Q6H PRN PRN PO Melatonin (MELATONIN) 6 MG BEDTIM E PRN PRN PO Simethicone (SIMETHICONE) 80 MG Q6H PRN PRN PO Tramadol HCl (ULTRAM) 50 MG Q6H PRN PRN PO I O:24 hour I O ending at 0700: / 070 0 02/ 1900 Intake Total 1800.00 Output Total Balance 1800.00 Intake, IV 500.00 Intake, Oral 1300 Number Voids 1 2 Nutrition assessment:The data set between the solid lines has been imported from the dietitian's assessment. Any exceptions have been noted under Provider comments. _ BMI Calculated: 31.8Nutrition related diagnosis: Nutrition diagnosis details: Nutrition problem: Nutrition etiology: Nutrition signs and symptoms: Nutritio n prescription: Dietitian name: Assessment completed: _ Provider comments on imported dietitian assessment: Physical ExamGeneral appearance: alert, awake, orientedWound/incision : Location:Left foot wound noted with eschar base along lateral and dorsal foot with erythema noted, no fluctuant, no mal odor, no tracking, n o mal odor-erythema is improvedHead/Eyes: atraumaticENT: normal dentitionNeck: full range of motionCardiovascular: normal capillary refillAbdomen: soft, non-tenderGenitourinary: no t indicated, deferredExtremities:Left moves all, Right moves allLE vascular pulse assess:Palpable L posterior tibialis, Palpable L dorsalis pedisCapillary refill: Capillary refill (in seconds): < 3 seconds Left footNeuro/WELT RANDER: alert, oriented X 3 ResultsFindings/Data:Laboratory Tests: 12/22 12/22 12/22 12/21 1157 0809 0628 2105 Chemistry POC Glucose (74 - 106 mg/dL) 174 H 122 H 147 H 233 H Diagnosis, Assessment PlanFree Text A P:41 yo female was seen for unstageable ulcer with cellulitis left foot Xray left foot N o acute abnormality by plain film. Small heel spur . Recommend abx per primary teamrecommend elvate left lower extremity MRI ordered Awaiting final images for treatment plan. In the interim, recommend abx Thank you for the consultation 2Recommend abx per primary teamrecommend elvate left lower extremityMRI results pendingarterial doppler results pending 2Recommend abx per primary teamrecommend elvate left lower extremityMRI results pendingarterial doppler results pendingno significant changes 2Recommend abx per primary teamrecommend elvate left lower extremityMRI results Oblique fracture line visible within the [...] having this wound. Discussed with patient to khanh kelley possible debridement, pending arterial doppler results 12/22/2021rterial doppler resultsMild plaque with <50% stenosis in left lower extremityRecommend abx per primary teamrecommend elevate left lower extremity Discussed with the patient all associated risks, benefits, alternative, I discussed risks which include but not limited to: Non-healing wound, inability to ambulate, further surgeries, infection, blood loss, limb loss and possible life loss. Pt expressed understanding and wish to proceed with the surgery.Pt is scheduled on 12/23/2021 to have left foot excisional removal of devitalized soft tissues NPO ordered Consultants: podiatry at 2157 RPT #:[id number] OF REPORTPRProgress [id number]:43:00V.[id number] l able for patient [id number]:57:33 2021-12-22 15:38:00 [id number] [facility] PATIENT NAME: MARCE HUBBARD ADMIT DATE: 12/18/21ACCOUNT NO: [id number] ROOM NO: 3027 AGE: 41 REPORT TYPE: eNVL ARTERIAL SEX: F DATE OF : [birth year]ADMITTING PHYSICIAN:Amelia Herr MD ATTENDING PHYSICIAN:Lorena Mclain *[facility]*[address] [place] [address]phone Limited Lower Extremity Arterial Duplex Study Patient: Dmitry Hubbardudy Date: 12/21/2021 BP: [facility]: [id number] : 1980 Age: 41 Height: / Gender: F Weight: /BMI/BSA: / *Ordering Physician: * Siddharth Heaton*Interpreting Physician: * Reilly Crisostomo MD*Dictionary Editor: * Miguel Dacosta - Indications: Gangrene. - Study data: Limited lower extremity arterial duplex study. Leftevaluation with grayscale 2D imaging, color Doppler imaging , andspectral Doppler analysis. Location: [facility]. Patient status: Inpatient.Patient room number: 3027-A. Study status: Routine. - Findings Lower extremity arteries:Left common femoral: The vessel has mixed plaque.Left deep femoral: The vessel has calcified plaque.Left femoral: The proximal vessel has mixed plaque. The mid vessel hasmixed plaque. The distal vessel has calcified plaque.Left popliteal: The proximal vessel has calcified plaque. The distalvessel has calcified plaque.Left anterior tibial: The proximal vessel has mixed plaque. The midvessel has mixed plaque.Left posterior tibial: The proximal vesse l has mixed plaque. The midvessel has mixed plaque . The distal vessel has mixed plaque.Left dorsal pedal: The vessel has calcified plaque. PATIENT NAME: MARCE HUBBARD - Arterial flow: Location PSV* Flow analysisL CLINICAL SCIENCES PROFESSOR 176 Triphasic waveformL DFA 98 Triphasic waveformL FA, prox 125 Triphasi c waveformL FA, mid 112 Triphasic waveformL FA, distal 127 Triphasic waveformL popliteal, prox 7 2 Triphasic waveformL popliteal, distal 87 Triphasic waveformL CIRCLE BEVELER, prox 106 Triphasic waveformL CIRCLE BEVELER, mid 94 Triphasic waveformL CIRCLE BEVELER, distal 81 Triphasic waveformL KWADWO, prox 91 Triphasic waveformL KWADWO, mid 100 Triphasic waveformL DPA 67 Triphasic waveform *Velocities are expressed in cm/sec, Diameters are expressed in cm - Conclusions Mild plaque with <50% stenosis in left lower extremity Preparedand electronically signed by Reilly Crisostomo MD12/22/2021 15:38 at 1538 PATIENT NAME: MARCE HUBBARD :38: 0 0V.[id number] for patient [id number]:38:51 2021-12-22 13:02:00 [id number]:02:00 [facility] ([facility])Hospitalist Progress NoteREPORT#:[id number] REPORT STATUS: SignedDATE:12/22/21 TIME: 1302 PATIENT: MARCE HUBBARD UNIT #: [id number]#: [id number] [address] [birth year] AGE : 41 SEX: F ATTEND: Lorena Mclain MSNADM AUTHOR: Lorena Mclain * ALL edits or amendments must be made on the electronic/computer document * SubjectiveChief complaint:left foot wound, pain controlled, dopplers pending, plan for debridement after dopplers Patient reports:Yes: pain. Nursing reports:Yes: pain. Review of SystemsSkin:Reports : other (left foot wound). All systems rev neg: except as marked Objective GeneralVS/I O:Vital Signs: Date Time Temp Pulse Resp B/P B/P Pulse O 2 O2 Flow FiO2 Mean Ox Delivery Rate 12/22 1159 [...] 86 18 99 24 hour I O endin g at 0700: 12/22 0700 12/21 1900 Intake Total 1800.00 Output Total Balance 1800.00 Intake, IV 500.00 Intake, Oral 1300 Number Voids 1 2 PATIENT WEIGHT: Weight (lb): 209Weight (oz): 7.03Weight (kg): 95.000 Medications:Active Meds + DC'd Last 24 HrsVancomycin HCl (VANCOMYCIN HCL) 1,000 MG Q8H IV Sodium Chloride (SODIUM CHLORIDE 0.9%) 250 MLInsulin Lispro Protam/Lispro Human (HumaLOG MIX 75/25) 25 UNITS BID 6A 6P SUBQ Miscellaneous Information (VANCOMYCIN PHARMACY T O DOSE) 1 EACH ASDIR IV (CKD) Ceftriaxone Sodium (ROCEPHIN) 1,000 MG DAILY IV Sodium Chloride (SODIUM CHLORIDE 0.9% PF) 10 MLLisinopril (lisinopriL) 10 MG DAILY PO Insulin Human Lispro (HUMALOG) S/SCALE HIGH AC HS SUBQ Acetaminophen (TYLENOL EXTRA STRENGTH) 500 MG Q6H PRN PRN PO Calcium Carbonate (TUMS 500MG) 1,000 MG Q6H PRN PRN PO Dextrose/Water (DEXTROSE 50%-WATER) 50 ML ASDIR PRN IV (CKD) Hydrocodone Bitart/Acetaminophen (NORCO 5/325 TABLET) 1 TAB Q6H PRN PRN PO Melatonin (MELATONIN) 6 MG BEDTIM E PRN PRN PO Simethicone (SIMETHICONE) 80 MG Q6H PRN PRN PO Tramadol HCl (ULTRAM) 50 MG Q6H PRN PRN PO Physical ExamGeneral appearance: alert, awake, orientedHead/Eyes: atraumatic, EOMI, normocephalicENT: moist mucosal membranes, alexis l ear left, normal ear rightNeck: full range of motion, non-tender, normal thyroid, supple/no meningismus, no bruit/NL carotids, no JVD, no masses or swellingCardiovascular: normal heart sounds, regular rate rhythm, no murmurRespiratory: aerating well, symmetric expansion, no distressAbdomen: non-tender, soft, no distention, no guardingExtremities: moves all , normal range of motion, no cyanosisMusculoskeletal: normal inspection, painless range of motionNeuro/WELT RANDER: alert, oriented X 3, CNII-XII intact, normal speech, reflexes equal bilat, no motor deficits, no sensory deficitsSkin: dry, intactPsychiatry: normal affect, normal judgment/insight, normal mood, not homicidal, not suicidal ResultsFindings/Data:Laboratory Tests 12/22 2 12/22 12/21 12/21 1157 0809 0628 2105 1542 Chemistry POC Glucose (74 - 106 mg/dL) 174 H 122 H 147 H 233 H 136 H Results: vital signs reviewe d Free Text Obj NotesFree Text Obj Notes:Left foot-patient has swelling around the left ankle extending into the left lower leg. She also swelling on the dorsum of the left foot most specifically on the lateral aspect. She has a open wound with an eschar nondraining that is 1 x 3 inches along the lateral aspect of the left foot over the mid fifth metatarsal, she also has a 2 x 1 cm open lesion with a eschar nondraining mid third metatarsal shaft on the dorsum of the foot. There is no surrounding cellulitis but there is edema. Pulses intact negative sensory deficit Diagnosis, Assessment PlanConsultants: podiatry Free Text DxA P NotesFree text DxA P notes:left foot ulcer with unstageable ulcer/cellulitisMRI foot noted, concerning for possible osteomyelitis vs stress fracturearterial/doppler of LLE pendingcontinue Vanco/Rocephinplan for debridement pending dopplers wound care, podiatry following 3. BC0dshhlczl insulin 75/25, SSI HgA1c 13.0nutritionist eval 4. HTNcontinue Lisinopril, monitor 5. Obesity, BMI 31.8dietary restrictions Quality: Gen Med Crit Care VTE ProphylaxisVTE prophylaxis initiated: yes (Lovenox) Current MedicationsCurrent medication review:I attest that the foregoing medication list in the medica l record is true, accurate, and complete to the best of my knowledge. at 1307 at 2149 RPT #:[id number] OF REPORTPRProgress [id number]:02:00V.[id number] jf able for patient [id number]:08:19 2021-12-22 12:50:00 [id number]:50:[id number] [facility] PATIENT NAME: MARCE HUBBARD ADMIT DATE: 12/18/21ACCOUNT NO: [id number] ROOM NO: 3027 AGE: 41 REPORT TYPE: eNVL VENOUS ULTRASOUND SEX: F DATE OF : [birth year]ADMITTING PHYSICIAN:Amelia Herr MD ATTENDING PHYSICIAN:Lorena Mclain *[facility]*[address] [place] [address]Gkbosne Limited Lower Extremity Venous Duplex Evaluation Patient: Dmitry Hubbardudy Date: 12/21/2021 BP: [facility] [id number] : 1980 Age: 41 Height: / Gender: F Weight: /BMI/BSA: / *Ordering Physician: Siddharth Bishop*Interpreting Physician: * Zana More MD*Dictionary Editor: Kristen Dacosta - Indications: Swelling of limb. - Study data: Limited lower extremity venous duplex evaluation. Leftevaluation with grayscale 2D imaging, color Doppler imaging, andspectral Doppler analysis. Location: [facility]. Patient status: Inpatient.Patient room number: 3027-A. Study status: Routine. - Venous flow and imaging: + + - +*Location *Properties *+ + - +*L CFV *Phasic; spontaneous; normal augmentation; compressible*+ + - +*L GSV *Phasic; spontaneous; normal augmentation; compressible*+ + - +*L DFV *Phasic; spontaneous; normal augmentation; compressible*+ + - +*L FV *Phasic; spontaneous; normal augmentation; compressible*+ + - +*L popliteal*Phasic; spontaneous; normal augmentation; compressible* PATIENT NAME: MARCE HUBBARD + + - +*L PTV *Phasic; spontaneous; normal augmentation; compressible*+ + - +*R CFV *Phasic; spontaneous; normal augmentation; compressible*+ + - +*R GSV *Phasic; spontaneous; normal augmentation; compressible*+ + - + - Conclusions 1. There is n o evidence of acute deep or superficial venous thrombosis noted in the left lower extremity.2. The right common femoral vein fully compresses and demonstrates normal venous flow.3. THE RIGHT GREAT SAPHENOUS VEIN FULLY COMPRESSES AND DEMONSTRATES NORMAL FLOW. Prepared and electronically signed by Zana More MD12/22/2021 12:49 at 1250 PATIENT NAME: MARCE HUBBARD [id number]:50:00V.[id number] a ilable for patient [id number]:50:36 2021-12-21 19:13:00 [id number]:13:00 [facility] ([facility])Podiatry Progress NoteREPORT#:[id number] REPORT STATUS: SignedDATE:12/21/21 TIME: 1912 PATIENT: MARCE HUBBARD UNIT #: [id number]#: [id number] ROOM[facility]BED: [facility]-ADOB: [birth year] AGE : 41 SEX: F ATTEND: Lorena Mclain MSNADM AUTHOR: Grant Laguna DPM * ALL edits or amendments must be made on the electronic/computer document * SubjectiveHPI:41 yo female was seen for ulcer on left foot. Objective GeneralVS:Last Documented: Result Date Time B/P 149/92 12/21 1721 B/P Mean 111.1 12/21 1721 Pulse 85 12/21 1721 Resp 17 12/21 1721 Pulse Ox 99 12/21 1720 Temp 98.1 12/21 1720 O2 Delivery Room air 12/21 1104 O2 Flow Rate 4 12/20 2244 PATIENT WEIGHT: Weight (lb): 209Weigh t (oz): 7.03Weight (kg): 95.000 Medications:Active Meds + DC'd Last 24 HrsVancomycin HCl (VANCOMYCI N HCL) 1,000 MG Q8H IV Sodium Chloride (SODIUM CHLORIDE 0.9%) 250 MLInsulin Lispro Protam/Lispr o Human (HumaLOG MIX 75/25) 25 UNITS BID 6A 6P SUB Q Vancomycin HCl (VANCOCIN) 1,250 MG Q12H IV (DC) Sodium Chloride (SODIUM CHLORIDE 0.9%) 500 MLMiscellaneous Information (VANCOMYCIN PHARMACY TO DOSE) 1 EACH ASDIR IV (CKD) Ceftriaxone Sodiu m (ROCEPHIN) 1,000 MG DAILY IV Sodium Chloride (SODIUM CHLORIDE 0.9% PF) 10 MLLisinopril (lisinopriL) 10 MG DAILY PO Insulin Human Lispro (HUMALOG) S/SCALE HIGH AC HS SUBQ Acetaminophen (TYLENOL EXTRA STRENGTH) 500 MG Q6H PRN PRN PO Calcium Carbonate (TUMS 500MG) 1,000 MG Q6H PRN PRN PO Dextrose/Water (DEXTROSE 50%-WATER) 50 ML ASDIR PRN IV (CKD) Hydrocodone Bitart/Acetaminophen (NORCO 5/325 TABLET) 1 TAB Q6H PRN PRN PO Melatonin (MELATONIN) 6 MG BEDTIM E PRN PRN PO Simethicone (SIMETHICONE) 80 MG Q6H PRN PRN PO Tramadol HCl (ULTRAM) 50 MG Q6H PRN PRN PO I O:24 hour I O ending at 0700: 12/21 070 0 12/20 1900 Intake Total Output Total Balance Patient 95 kg Weight Weight Standing scale Measurement Method Nutrition assessment:The data set between the solid lines has been imported from the dietitian's assessment. Any exceptions have been noted under Provider comments. _ BMI Calculated: 31.8Nutrition related diagnosis: Nutrition diagnosis details: Nutrition problem: Nutrition etiology: Nutrition signs and symptoms: Nutritio n prescription: Dietitian name: Assessment completed: _ Provider comments on imported dietitian assessment: Physical ExamGeneral appearance: alert, awake, orientedWound/incision : Location:Left foot wound noted with eschar base along lateral and dorsal foot witherythema noted , no fluctuant, no mal odor, no tracking, no malodor-erythema is improvedHead/Eyes: atraumaticENT: normal dentitionNeck: full range of motionCardiovascular: normal capillary refillAbdomen: soft, non-tenderGenitourinary: no t indicated, deferredExtremities:Left moves all, Right moves allLE vascular pulse assess:Palpable L posterior tibialis, Palpable L dorsalis pedisCapillary refill: Capillary refill (in seconds): < 3 seconds Left footNeuro/WELT RANDER: alert, oriented X 3 ResultsFindings/Data:Laboratory Tests: 12/21 12/21 12/21 12/21 12/20 1542 1057 0754 0553 2112 Chemistry POC Glucose (74 - 106 mg/dL) 136 H 208 H 186 H 184 H 218 H Diagnosis, Assessment PlanFree Text A P:41 yo female was seen for unstageable ulcer with cellulitis left foot Xray left foot No acute abnormality by plai n film. Small heel spur. Recommend abx per primary teamrecommend elvate left lower extremity MRI ordered Awaiting final images for treatment plan . In the interim, recommend abx Thank you for the consultation 1/30/2022Recommend abx per primary teamrecommend elvate left lower extremityMRI results pendingarterial doppler results pending 2Recommend abx per primary teamrecommend elvate left lower extremityMRI results pendingarterial doppler results pendingno significant changes 2Recommend abx per primary teamrecommend elvate left lower extremityMRI results Oblique fracture line visible within the [...] having this wound. Discussed with patient to khanh kelley possible debridement, pending arterial doppler resultsConsultants: podiatry at 0900 RPT #:[id number] OF REPORTPRProgress [id number]:13:00V.[id number] l able for patient [id number]:00:33 2021-12-21 09:59:00 [id number]:59:00 [facility] ([facility]ENTERHospitalist Progress NoteREPORT#:[id number] REPORT STATUS: SignedDATE:12/21/21 TIME: 0959 PATIENT: MARCE HUBBARD UNIT #: [id number]#: [id number] [address] [birth year] AGE : 41 SEX: F ATTEND: Lorena Mclain MSNADM AUTHOR: Siddharth Heaton NP * ALL edits or amendments must be made on the electronic/computer document * SubjectiveChief complaint:left foot wound/swelling/blistersswelling improvedpending dopplers Review of SystemsAll systems rev neg: except as marked Objective GeneralVS/I O:Vital Signs: Date Time Temp Pulse Resp B/P B/P Pulse O 2 O2 Flow FiO2 Mean Ox Delivery Rate 12/21 1104 97.9 90 17 124/83 96.5 97 Room air 12/21 0755 98.1 96 17 118/80 92.4 96 Room air 12/21 0551 98.1 92 18 114/75 88.3 95 Room air 12/20 2244 Nasal 4 cannula 12/20 2013 98.2 93 18 124/86 98. 6 99 12/20 1531 98.1 92 18 140/94 109.1 99 Room ai r 12/20 1125 97.9 88 17 166/98 120.5 97 Room air 2 4 hour I O ending at 0700: 12/21 0700 12/20 1900 Intake Total Output Total Balance Patient 95 kg Weight Weight Standing scale Measurement Method PATIENT WEIGHT: Weight (lb): 209Weight (oz): 7.03Weight (kg): 95.000 Physical ExamGeneral appearance: alert, awake, orientedHead/Eyes: atraumatic, clear cornea, EOMI, normal conjunctiva/sclera, normal eyelids/periorb., normocephalic, PERRLENT: normal dentition, alexis l ear left, normal ear right, normal nose, normal pharynx, normal sinusNeck: full range of motion, non-tender, normal thyroid, supple/no meningismus, no bruit/NL carotids, no JVD, no masses or swellingCardiovascular: normal capillary refill, normal heart sounds, regular rate rhythm, no ectopy, no gallop, no heave, no murmur, no rub, no thrillRespiratory: aerating well, clear to auscultation, symmetric expansion , no distressAbdomen: non-tender, normal bowel sounds, soft, no distention, no guarding, no hernia, no mass/organomegaly, no reboundExtremities: moves all, normal capillary refill, normal range of motionMusculoskeletal: normal inspection, painless range of motionNeuro/WELT RANDER: alert, oriented X 3, CNII-XII intact, normal speech, reflexes equal bilat, no motor deficits, no sensory deficitsSkin: dry, intactLymphatics: axilla normal, inguinal normal , neck normal, no lymphadenopathyPsychiatry: alexis l affect, normal judgment/insight, normal mood, no t homicidal, not suicidal ResultsFindings/Data:Laboratory Tests 12/21 02/0 1 12/20 12/20 12/20 0754 0553 2112 1533 1127 Chemistry POC Glucose (74 - 106 mg/dL) 186 H 184 H 218 H 228 H 224 H Laboratory Tests 12/20 1455 Toxicology Random Vancomycin (5.0 - 45.0 UG/ML) 8.3 Radiology data:Recent Impressions:MAGNETIC RESONANCE IMAGING - MRI LOW EXT W WO CONT LT 12/20 1745 Report Impression - Status: SIGNED Entered: 12/21/2021 0854 IMPRESSION: Oblique fracture line visible within the distal fourth metatarsal bonewith diffuse edema and enhancemen t of nearly the entire fourthmetatarsal bone with soft tissue swelling. Differential diagnosisincludes osteomyelitis and stress fracture. Correlate clinically. Nodrainable abscess. No other fractures or other areas of abnormalenhancement to suggest osteomyelitis either.Impression By: CharmaineTH4 - Julius Escalante M.D. Free Text Obj NotesFree Text Obj Notes:Left foot-patient has swelling around the left ankle extending into the left lower leg. She also swelling on the dorsum of the left foot most specifically on the lateral aspect. She has a open wound with an eschar nondraining that is 1 x 3 inches along the lateral aspect of the left foot over the mid fifth metatarsal, she also has a 2 x 1 cm open lesion with a eschar nondraining mid third metatarsal shaft on the dorsum of the foot. There is no surrounding cellulitis but there is edema. Pulses intact negative sensory deficit Diagnosis, Assessment PlanProblem List/A P: 1. Diabetic foot ulcer 2. Sepsis 3. Uncontrolled hypertension Consultants: podiatry Free Text DxA P NotesFree text DxA P notes:1. sepsissuspect due to diabetic foot ulcerblood culturesempiric abx 2. diabetic foot ulcer, leftpodiatry consultMRI foot noted, concerning for possible osteomyelitis vs stress fracturearterial/doppler of LLE pendingabxwound care 3. FA6vgrjbokc insulin 70/30SSI, lkeqldbspsGnZ3e 13.0 4. HTNresume home meds 5. DVT prophylaxis Quality: Gen Med Crit Care VTE ProphylaxisVTE prophylaxis initiated: yes (Lovenox) Current MedicationsCurrent medication review:I attest that the foregoing medication list in the medical record is true, accurate, an d complete to the best of my knowledge. Advanced Care Plan 65 or OlderDiscussed with: patientDiscussion included: code status (full code) Electronically Signed by Siddharth Heaton NP o n 12/21/21 at 1124 at 0916 RPT #:[id number] OF REPORTPRProgress [id number]:59:00V.[id number] l able for patient znxnLBKFAJXSJCSTBV8679-33-44G26:24:57 2021-12-21 07:05:00 [id number]:05:00 [facility] ([facility])Pharmacy Prog.Note-VancomycinREPORT#:[id number] REPORT STATUS: SignedDATE:12/21/21 TIME: 0705 PATIENT: MARCE HUBBARD UNIT #: [id number]#: [id number] [address] [birth year] AGE : 41 SEX: F ATTEND: Siddharth Heaton NPADM DT: 2 AUTHOR: Caden Hurst [facility] * ALL edits or amendments must be made on the electronic/computer document * Vancomycin Vancomycin Medication TherapyGoal: trough 10-15 mcg/mLIndication for treatment:DFICurrent therapy:vancomycin 1250 mg IV a29cCnudgn: Actual weight (kg): 95VS and I/O:Vital SignsDate Temp Pulse Resp B/P B/P Mean Pulse Ox PnW273/29-12/21 97.3-98.6 83-95 14-20 109-166/75-100 87.5-120.5 95-99 72 hours ending at 0700 12/21 0700 12/20 1900 12/20 0712/19 1900 12/19 12/18 0700 1900Intake 500.00TotalOutputTotalBalance 500.00 Intake, IV 500.00Number 1VoidsPatient 95 kgWeightWeight Standing scaleMeasurementMethod 72 Hour I O Total 12/21 0700 12/20 0700 12/19 0700 Intake Total 500.00 Output Total Balance 500.00 Labs:Laboratory Tests: 12/20 1455 Toxicology Random Vancomycin (5.0 - 45.0 UG/ML) 8.3 Microbiology:12/18 1642 NASAL: MRSA Screen - COMP12/18 0747 BLOOD: Blood Culture - RES Treatment plan: consult, initiation of therapyRegimen:Pharmacy consulted to dose vancomycin empirically to goal trough 10-15 mcg/ml for DFI. Pt has been on vancomycin at 125 0 mg IV q12h. Trough yesterday resulted at 8.3 mcg/ml, which is below goal. Inc vanc to 1000 mg IV q8h. Pharmacy will continue to follow. at 0706 RPT #:[id number] OF REPORTPRProgress [id number]:05:00V.[id number] l [facility] for patient klegPIFWTIWVQNSHDR7232-24-31G43:06:51 2021-12-20 16:29:00 [id number]:29:00 [facility] ([facility])Podiatry Progress NoteREPORT#:[id number] REPORT STATUS: SignedDATE:12/20/21 TIME: 1629 PATIENT: MARCE HUBBARD UNIT #: [id number]#: [id number] ROOM[place]BED: [place] [address]DOB: [birth year] AGE: 41 SEX: F ATTEND: Siddharth Heaton NPADM AUTHOR: Grant Laguna DPM * ALL edits or amendments must be made on the electronic/computer document * SubjectiveHPI:41 yo female was seen for ulcer on left foot. Objective GeneralVS:Last Documented: Result Date Time Pulse Ox 99 12/20 1531 B/P 140/94 12/20 1531 B/P Mean 109.1 12/20 1531 O2 Delivery Room air 12/20 1531 Temp 98.1 12/20 1531 Pulse 92 12/20 1531 Resp 18 12/20 1531 PATIENT WEIGHT: Weight (lb): 209Weight (oz): 7.03Weight (kg): 95.000 Medications:Active Meds + DC'd Last 24 HrsInsulin Lispro Protam/Lispro Human (HumaLOG MIX 75/25) 25 UNITS BID 6A 6P SUBQ Insulin Lispr o Protam/Lispro Human (HumaLOG MIX 75/25) 20 UNITS BID 6A 6P SUBQ (DC) Vancomycin HCl (VANCOCIN) 1,250 MG Q12H IV Sodium Chloride (SODIUM CHLORID E 0.9%) 500 MLMiscellaneous Information (VANCOMYCI N PHARMACY TO DOSE) 1 EACH ASDIR IV (CKD) Ceftriaxone Sodium (ROCEPHIN) 1,000 MG DAILY IV Sodium Chloride (SODIUM CHLORIDE 0.9% PF) 10 MLLisinopril (lisinopriL) 10 MG DAILY PO Insulin Human Lispro (HUMALOG) S/SCALE HIGH AC HS SUBQ Acetaminophen (TYLENOL EXTRA STRENGTH) 500 MG Q6 H PRN PRN PO Calcium Carbonate (TUMS 500MG) 1,000 MG Q6H PRN PRN PO Dextrose/Water (DEXTROSE 50%-WATER) 50 ML ASDIR PRN IV (CKD) Hydrocodone Bitart/Acetaminophen (NORCO 5/325 TABLET) 1 TAB Q6H PRN PRN PO Melatonin (MELATONIN) 6 MG BEDTIME PRN PRN PO Simethicone (SIMETHICONE) 80 MG Q6H PRN PRN PO Tramadol HCl (ULTRAM) 50 MG Q6 H PRN PRN PO Nutrition assessment:The data set between the solid lines has been imported from the dietitian's assessment. Any exceptions have been noted under Provider comments. _ BMI Calculated: 31.8Nutrition related diagnosis: Nutrition diagnosis details: Nutrition problem: Nutrition etiology: Nutrition signs and symptoms: Nutritio n prescription: Dietitian name: Assessment completed: _ Provider comments on imported dietitian assessment: Physical ExamGeneral appearance: alert, awake, orientedWound/incision : Location:Left foot wound noted with eschar base along lateral and dorsal foot witherythema noted , no fluctuant, no mal odor, no tracking, no mal odor-erythema is improvedHead/Eyes: atraumaticENT: normal dentitionNeck: full range of motionCardiovascular: normal capillary refillAbdomen: soft, non-tenderGenitourinary: no t indicated, deferredExtremities:Left moves all, Right moves allLE vascular pulse assess:Palpable L posterior tibialis, Palpable L dorsalis pedisCapillary refill: Capillary refill (in seconds): < 3 seconds Left footNeuro/WELT RANDER: alert, oriented X 3 ResultsFindings/Data:Laboratory Tests: 12/20 12/20 12/20 12/20 12/20 1533 1455 1127 0754 0612 Chemistry POC Glucose (74 - 106 mg/dL) 228 H 224 H 236 H 265 H Toxicology Random Vancomycin (5.0 - 45.0 UG/ML) 8.3 12/19 12/19 2036 1707 Chemistry POC Glucose (74 - 106 mg/dL) 200 H 292 H Diagnosis, Assessment PlanFree Text A P:41 yo female was seen for unstageable ulcer with cellulitis left foot Xray left foot No acut e abnormality by plain film. Small heel spur. Recommend abx per primary teamrecommend elvate left lower extremity MRI ordered Awaiting final images for treatment plan. In the interim, recommend abx Thank you for the consultation 2Recommend abx per primary teamrecommend elvate left lower extremityMRI results pendingarterial doppler results pending 2Recommend abx per primary teamrecommend elvate left lower extremityMRI results pendingarterial doppler results pendingno significant changesConsultants: podiatry at 2228 RPT #:[id number] OF REPORTPRProgress [id number]:29:00V.[id number] l able for patient [id number]:29:36 2021-12-20 11:59:00 [id number]:59:00 [facility] ([facility])Hospitalist Progress NoteREPORT#:[id number] REPORT STATUS: SignedDATE:12/20/21 TIME: 1159 PATIENT: MARCE HUBBARD UNIT #: [id number]#: [id number] ROOM/BED: [place] [address]DOB: [birth year] AGE: 41 SEX: F ATTEND: Siddharth Heaton NPADM AUTHOR: Siddharth Heaton NP * ALL edits or amendments must be made on the electronic/computer document * SubjectiveChief complaint:left foot wound/swelling/blistersswelling improvedpending mri and dopplers Review of SystemsAll systems re v neg: except as marked Objective GeneralVS/I O:Vital Signs: Date Time Temp Pulse Resp B/P B/P Pulse O2 O2 Flow FiO2 Mean Ox Delivery Rate 11/22 1125 97.9 88 17 166/98 120.5 97 [...] 135/87 102.7 97 PATIENT WEIGHT: Weight (lb): 209Weight (oz): 7.03Weight (kg): 95.000 Physical ExamGeneral appearance: alert, awake, orientedHead/Eyes: atraumatic, clear cornea, EOMI, normal conjunctiva/sclera, normal eyelids/periorb., normocephalic, PERRLENT: alexis l dentition, normal ear left, normal ear right, normal nose, normal pharynx, normal sinusNeck: full range of motion, non-tender, normal thyroid , supple/no meningismus, no bruit/NL carotids, no JVD, no masses or swellingCardiovascular: normal capillary refill, normal heart sounds, regular rate rhythm, no ectopy, no gallop, no heave, no murmur, no rub, no thrillRespiratory: aerating well, clear to auscultation, symmetric expansion , no distressAbdomen: non-tender, normal bowel sounds, soft, no distention, no guarding, no hernia, no mass/organomegaly, no reboundExtremities: moves all, normal capillary refill, normal range of motionMusculoskeletal: normal inspection, painless range of motionNeuro/WELT RANDER: alert, oriented X 3, CNII-XII intact, normal speech, reflexes equal bilat, no motor deficits, no sensory deficitsSkin: dry, intactLymphatics: axilla normal, inguinal normal , neck normal, no lymphadenopathyPsychiatry: alexis l affect, normal judgment/insight, normal mood, no t homicidal, not suicidal ResultsFindings/Data:Laboratory Tests 12/20 11/22 1 12/19 12/19 0754 0612 2036 1707 Chemistry POC Glucose (74 - 106 mg/dL) 236 H 265 H 200 H 292 H Free Text Obj NotesFree Text Obj Notes:Left foot-patient has swelling around the left ankle extending into the left lower leg. She also swelling on the dorsum of the left foot most specifically on the lateral aspect. She has a open wound with an eschar nondraining that is 1 x 3 inches along the lateral aspect of the left foot over the mid fifth metatarsal, she also has a 2 x 1 cm open lesion with a eschar nondraining mid third metatarsal shaft on the dorsum of the foot. There is no surrounding cellulitis but there is edema. Pulses intact negative sensory deficit Diagnosis, Assessment PlanProblem List/A P: 1. Diabetic foot ulcer 2. Sepsis 3. Uncontrolled hypertension Consultants: podiatry Free Text DxA P NotesFree text DxA P notes:1. sepsissuspect due to diabetic foot ulcerblood culturesempiric abx 2. diabetic foot ulcer, leftpodiatry consultMRI foot pendingarterial/doppler of LLE pendingabxwound care 3. NS4dcfmjalq insulin 70/30SSI, oougyagxwuCjK4a 13.0 4. HTNresume home meds 5. DVT prophylaxis Quality: Gen Med Crit Care VTE ProphylaxisVTE prophylaxis initiated: yes (Lovenox) Current MedicationsCurrent medication review:I attest that the foregoing medication list in the medical record is true, accurate, an d complete to the best of my knowledge. Advanced Care Plan 65 or OlderDiscussed with: patientDiscussion included: code status (full code) Electronically Signed by Siddharth Heaton NP 12/20/21 at 1201 at 2203 RPT #:[id number] OF REPORTPRProgress [id number]:59:00V.[id number] l able for patient uzefSPSUZUSKJAFODZ0850-27-78J28:01:15 2021-12-19 14:54:00 [id number]:54:00 [facility] ([facility])Podiatry Progress NoteREPORT#:[id number] REPORT STATUS: SignedDATE:12/19/21 TIME: 1454 PATIENT: MARCE HUBBARD UNIT #: [id number]#: [id number] ROOM/BED: [place] [address]DOB: [birth year] AGE: 41 SEX: F ATTEND: Amelia Herr [facility] AUTHOR: Grant Laguna DPSavanah * ALL edits or amendments must be made on the electronic/computer document * SubjectiveHPI:41 yo female was seen for ulcer on left foot. Objective GeneralVS:Last Documented: Result Date Time Pulse Ox 97 12/19 1236 B/P 135/87 12/19 1236 B/P Mean 102.7 12/19 1236 Temp 98.1 12/19 1236 Pulse 86 12/19 1236 Resp 18 12/19 1236 O2 Delivery Room air 12/19 0000 PATIENT WEIGHT: Weight (lb): Weight (oz): Weight (kg): 95.000 Medications:Active Meds + DC'd Last 24 HrsInsuli n Lispro Protam/Lispro Human (HumaLOG MIX 75/25) 2 0 UNITS BID 6A 6P SUBQ Vancomycin HCl (VANCOCIN) 1,250 MG Q12H IV Sodium Chloride (SODIUM CHLORID E 0.9%) 500 MLMiscellaneous Information (VANCOMYCI N PHARMACY TO DOSE) 1 EACH ASDIR IV (CKD) Ceftriaxone Sodium (ROCEPHIN) 1,000 MG DAILY IV Sodium Chloride (SODIUM CHLORIDE 0.9% PF) 10 MLLisinopril (lisinopriL) 10 MG DAILY PO Insulin Human Lispro (HUMALOG) S/SCALE HIGH AC HS SUBQ Acetaminophen (TYLENOL EXTRA STRENGTH) 500 MG Q6 H PRN PRN PO Calcium Carbonate (TUMS 500MG) 1,000 MG Q6H PRN PRN PO Dextrose/Water (DEXTROSE 50%-WATER) 50 ML ASDIR PRN IV (CKD) Hydrocodone Bitart/Acetaminophen (NORCO 5/325 TABLET) 1 TAB Q6H PRN PRN PO Melatonin (MELATONIN) 6 MG BEDTIM E PRN PRN PO Simethicone (SIMETHICONE) 80 MG Q6H PRN PRN PO Tramadol HCl (ULTRAM) 50 MG Q6H PRN PRN PO I O:24 hour I O ending at 0700: 12/19 070 0 12/18 1900 Intake Total 500.00 Output Total Balance 500.00 Intake, IV 500.00 Number Voids 1 Nutrition assessment:The data set between the solid lines has been imported from the dietitian's assessment. Any exceptions have been noted under Provider comments. _ BMI Calculated: 31.8Nutrition related diagnosis: Nutrition diagnosis details: Nutrition problem: Nutrition etiology: Nutrition signs and symptoms: Nutritio n prescription: Dietitian name: Assessment completed: _ Provider comments on imported dietitian assessment: Physical ExamGeneral appearance: alert, awake, orientedWound/incision : Location:Left foot wound noted with eschar base along lateral and dorsal foot with erythema noted, no fluctuant, no mal odor, no tracking, n o mal odorHead/Eyes: atraumaticENT: normal dentitionNeck: full range of motionCardiovascular: normal capillary refillAbdomen: soft, non-tenderGenitourinary: no t indicated, deferredExtremities:Left moves all, Right moves allLE vascular pulse assess:Palpable L posterior tibialis, Palpable L dorsalis pedisCapillary refill: Capillary refill (in seconds): < 3 seconds Left footNeuro/WELT RANDER: alert, oriented X 3 ResultsFindings/Data:Laboratory Tests: 12/19 12/19 12/19 12/19 12/18 1135 0827 0718 0544 2058Chemistry Sodium (136 - 145 mmol/L ) 138 Potassium (3.5 - 5.1 mmol/L) 4.6 Chloride (9 8 - 107 mmol/L) 107.0 Carbon Dioxide (21 - 32 mmol/L) 27.0 Anion Gap (10 - 20) 8.6 L BUN (7 - 18 mg/dL) 11 Creatinine (0.55 - 1.02 mg/dL) 0.5 0 L Glomerular Filtr Rate (>=60 mL/min) > 60 BUN/Creatinine Ratio (10 - 20) 22.0 H Glucose (7 4 - 106 mg/dL) 164 H POC Glucose (74 - 106 mg/dL) 185 H 165 H 152 H 327 H Calcium (8.5 - 10.1 mg/dL) 8.2 L Total Bilirubin (0.0 - 1.0 mg/dL) 0.40 AST (15 - 37 IUnit/L) 35 ALT (12 - 78 IUnit/L) 23 Total Alk Phosphatase (45 - 117 79IUnit/L) Total Protein (6.4 - 8.2 gram/dL) 6.4 Albumin (3.4 - 5.0 g/dL) 2.8 L Globulin (2.7 - 4.2 gram/dL) 3.6 Albumin/Globulin Ratio (0.75 - 1.50) 0.8Hematology WBC (4.5 - 12.5 K/mm3) 6.9 RBC [...] % (Auto) (25.0 - 55.0 %) 30.6 [place] % (Auto) (0.0 - 10.0 %) 8.0 Eos % (Auto) (0.0 - 5.0 %) 2.2 Baso % (Auto) (0.0 - 1.0 %) 0.4 Neut # (Auto) (1.8 - 7. 7 K/mm3) 3.98 Lymph # (Auto) (1.0 - 5.0 K/mm3) 2.1 1 [place] # (Auto) (0 - 0.8 K/mm3) 0.55 Eos # (Auto) (0.0 - 0.5 K/mm3) 0.15 Baso # (Auto) (0.0 - 0.2 K/mm3) 0.03 Add Manual Diff NO Nucleated RBC % ( 0 - 0 %) 0.0 Nucleated RBCs # (Man) (0.0 - 0.1 0.00K/mm3) 12/18 1928 Chemistry POC Glucose (74 - 106 mg/dL) 223 H Diagnosis, Assessment PlanFre e Text A P:41 yo female was seen for unstageable ulcer with cellulitis left foot Xray left foot N o acute abnormality by plain film. Small heel spur . Recommend abx per primary teamrecommend elvate left lower extremity MRI ordered Awaiting final images for treatment plan. In the interim, recommend abx Thank you for the consultation 2Recommend abx per primary teamrecommend elvate left lower extremityMRI results pendingarterial doppler results pendingConsultants: podiatry at 0745 RPT #:[id number] OF REPORTPRProgress [id number]:54:00V.[id number] l able for patient [id number]:46:17 2021-12-19 10:07:00 [id number]:07:00 [facility] ([facility]ENTERHospitalist Progress NoteREPORT#:[id number] REPORT STATUS: SignedDATE:12/19/21 TIME: 1007 PATIENT: MARCE HUBBARD UNIT #: [id number]#: [id number] ROOM/BED: [place] [address]DOB: [birth year] AGE: 41 SEX: F ATTEND: Amelia Herr [facility] AUTHOR: Siddharth Heaton DELIVERY TABLE FEEDER * ALL edits or amendments must be made on the electronic/computer document * SubjectiveChief complaint:left foot wound/swelling/blisters Review of SystemsAll systems rev neg: except as marked Objective GeneralVS/I O:Vital Signs: Date Time Temp Pulse Resp B/P B/P Pulse O2 O2 Flow FiO2 Mean Ox Delivery Rate 12/19 1236 98.1 86 18 135/87 102.7 97 12/19 0730 98.1 86 20 150/97 115.1 95 12/19 0436 98.6 83 15 133/87 102.5 97 12/19 0000 98.1 84 16 109/77 87.5 98 Room air 12/18 1531 98.1 87 17 118/78 91.1 98 24 hour I O ending at 0700: 12/19 0700 12/18 1900 Intake Total 500.00 Output Total Balance 500.00 Intake , IV 500.00 Number Voids 1 PATIENT WEIGHT: Weight (lb): Weight (oz): Weight (kg): 95.000 Physical ExamGeneral appearance: alert, awake, orientedHead/Eyes: atraumatic, clear cornea, EOMI, normal conjunctiva/sclera, normal eyelids/periorb., normocephalic, PERRLENT: alexis l dentition, normal ear left, normal ear right, normal nose, normal pharynx, normal sinusNeck: full range of motion, non-tender, normal thyroid , supple/no meningismus, no bruit/NL carotids, no JVD, no masses or swellingCardiovascular: normal capillary refill, normal heart sounds, regular rate rhythm, no ectopy, no gallop, no heave, no murmur, no rub, no thrillRespiratory: aerating well, clear to auscultation, symmetric expansion , no distressAbdomen: non-tender, normal bowel sounds, soft, no distention, no guarding, no hernia, no mass/organomegaly, no reboundExtremities: moves all, normal capillary refill, normal range of motionMusculoskeletal: normal inspection, painless range of motionNeuro/WELT RANDER: alert, oriented X 3, CNII-XII intact, normal speech, reflexes equal bilat, no motor deficits, no sensory deficitsSkin: dry, intactLymphatics: axilla normal, inguinal normal , neck normal, no lymphadenopathyPsychiatry: alexis l affect, normal judgment/insight, normal mood, no t homicidal, not suicidal ResultsFindings/Data:Laboratory Tests 12/19 11/22 0 12/19 12/19 12/18 1135 0827 0718 0544 2058 Chemistry Sodium (136 - 145 mmol/L) 138 Potassiu m (3.5 - 5.1 mmol/L) 4.6 Chloride (98 - 107 mmol/L ) 107.0 Carbon Dioxide (21 - 32 mmol/L) 27.0 Anio n Gap (10 - 20) 8.6 L BUN [...] ALT (12 - 78 IUnit/L) 23 Total Al k Phosphatase (45 - 117 IUnit/L) 79 Total Protein (6.4 - 8.2 gram/dL) 6.4 Albumin (3.4 - 5.0 g/dL) 2.8 L Globulin (2.7 - 4.2 gram/dL) 3.6 Albumin/Globulin Ratio (0.75 - 1.50) 0.8 12/189 Chemistry POC Glucose (74 - 106 mg/dL) [...] % (Auto) (25.0 - 55.0 %) 30.6 [place] % (Auto) (0.0 - 10.0 %) 8.0 Eos % (Auto) (0.0 - 5.0 %) 2.2 Baso % (Auto) (0.0 - 1.0 %) 0. 4 Neut # (Auto) (1.8 - 7.7 K/mm3) 3.98 Lymph # (Auto) (1.0 - 5.0 K/mm3) 2.11 [place] # (Auto) (0 - 0.8 K/mm3) 0.55 Eos # (Auto) (0.0 - 0.5 K/mm3) 0.15 Baso # (Auto) (0.0 - 0.2 K/mm3) 0.03 Add Manual Diff NO Nucleated RBC % (0 - 0 %) 0.0 Nucleated RBCs # (Man) (0.0 - 0.1 K/mm3) 0.00 Free Text Obj NotesFree Text Obj Notes:Left foot-patient has swelling around the left ankle extending into the left lower leg. She also swelling on the dorsum of the left foot most specifically on the lateral aspect. She has a open wound with an eschar nondraining that is 1 x 3 inches along the lateral aspect of the left foot over the mid fifth metatarsal, she also has a 2 x 1 cm open lesion with a eschar nondraining mid third metatarsal shaft on the dorsum of the foot. There is no surrounding cellulitis but there is edema. Pulses intact negative sensory deficit Diagnosis, Assessment PlanProblem List/A P: 1. Diabetic foot ulcer 2. Sepsis 3. Uncontrolled hypertension Consultants: podiatry Free Text DxA P NotesFree text DxA P notes:1. sepsissuspect due to diabetic foot ulcerblood culturesempiric abx 2. diabetic foot ulcer, leftpodiatry consultMRI footarterial/doppler of LLEabxwound care 3. TM5sayozckz insulin 70/30SSI , ukkfyechcuYfC1j 13.0 4. HTNresume home meds 5. DVT prophylaxis Quality: Gen Med Crit Care VTE ProphylaxisVTE prophylaxis initiated: yes (Lovenox) Current MedicationsCurrent medication review:I attest that the foregoing medication list in the medical record is true, accurate, an d complete to the best of my knowledge. Advanced Care Plan 65 or OlderDiscussed with: patientDiscussion included: code status (full code) Electronically Signed by Siddharth Heaton NP n 12/19/21 at 1312 at 0729 RPT #:[id number] OF REPORTPRProgress [id number]:07:00V.[id number] jf able for patient [id number]:13:03 2021-12-18 15:06:00 [id number]:06:00 [facility])Pharmacy Prog.Note-VancomycinREPORT#:[id number] REPORT STATUS: SignedDATE:12/18/21 TIME: 1506 PATIENT: MARCE HUBBARD UNIT #: [id number]#: [id number] [facility]GE: 41 SEX: F ATTEND: Amelia Herr [facility] AUTHOR: Enmanuel Tarango [facility] * ALL edits or amendments must be made on the electronic/computer document * Vancomycin Vancomycin Medication TherapyGoal: trough 10-15 mcg/mLTreatment plan: consultRegimen:INDICATION: DFU L FTVIT: AFEB, VSSWBC: 8.4SCr 0.8CX: AWAIT BCX UCXIMAGE: XR REVIEWED, AWAIT MRI START 1.25G Q12H at 1506 RPT #:[id number] OF REPORTPRProgress [id number]:06:00V.[id number] l able for patient [id number]:06:41 2021-12-18 13:49:00 [id number]:49:00 [facility] ([facility])Podiatry Consult NoteREPORT#:[id number] REPORT STATUS: SignedDATE:12/18/21 TIME: 1349 PATIENT: MARCE HUBBARD UNIT #: [id number]#: [id number] [facility] [birth year] AGE: 41 SEX: F ATTEND: Amelia Herr [facility] AUTHOR: Grant Laguna DPM * ALL edits or amendments must be made on the electronic/computer document * History of Presen t IllnessRequesting clinician: Mica Gomez for consult:diabetic wound Free Justin t HPI NotesFree Text HPI Notes:41 yo female PMH of with type 1 diabetes. Patient reports she was in [place] 11/17/2021 and rub alove leave it on her feet and within 30 minutes her left foot dorsum blistered up. She was seen by a doctor in [place] on the and was prescribed dexamethasone and abx. Pt reports the wound is not getting better. She was seen by the content administrator and was recommended to go to ED for further evalutation for possible osteomyelitis. History - Adult longitudinalPast medical history:Reports: Diabetes mellitus, Hypertension. Additional medical history:history of obesity BMI 31.8, insulin-dependent diabetes on insulin 70/30 10 units twice daily, Metformin 1000 mg twice daily and glipizide, hypertension previously on lisinopril which was discontinuedAdditional surgical history:Cholecystectomy, x4, right fifth toe amputation 2019, umbilical incisional hernia repair, bilateral tubal ligation, right oophorectomy from recurrent ovarian cystsAdditional family history:Mother at age 71 had diabetes end-stage renal disease Father at age 70 of congestive heart failureAlcohol use: Denies EtOH useDrug use: Denies recreational drugsSmoking status: Smoking status for patients 13 years old or older: Never SmokerAdditional social history:Resides at home with her and family ambulates independently independent of al l ADLsAllergies:Coded Allergies:No Known Allergies (12/17/21) Review of SystemsConstitutional:Denies: chills, fatigue, fever, generalized weakness, lethargy. Cardiovascular:Denies: chest pain, SCHMID (dyspnea on exertion). Objective GeneralVS:Last Documented: Result Date Time Pulse Ox 96 12/18 1123 B/P 129/80 12/18 1123 B/P Mean 96.4 12/18 1123 Temp 98.1 12/18 1123 Pulse 85 12/18 1123 Resp 14 12/18 1123 O2 Delivery Room air 12/17 2003 PATIENT WEIGHT: Weight (lb): Weight (oz): Weight (kg): 95.000 Medications:Active Meds + DC'd Last 24 HrsInsulin Lispro Protam/Lispro Human (HumaLOG MIX 75/25) 20 UNITS BID 6A 6P SUBQ Miscellaneous Information (VANCOMYCIN PHARMACY TO DOSE) 1 EACH ASDIR IV (CKD) Ceftriaxone Sodium (ROCEPHIN) 1,000 MG DAILY IV Sodium Chloride (SODIUM CHLORIDE 0.9% PF) 10 MLLisinopril (lisinopriL) 10 MG DAILY PO Insulin Human Lispro (HUMALOG) S/SCALE HIGH AC HS SUBQ Insulin Lispro Protam/Lispro Human (HumaLOG MIX 75/25) 10 UNITS BID 6A 6P SUBQ (DC) Potassium Chloride (K-DUR) 20 MEQ ONCE ONE PO (DC) Acetaminophen (TYLENOL EXTRA STRENGTH) 500 MG Q6 H PRN PRN PO Calcium Carbonate (TUMS 500MG) 1,000 MG Q6H PRN PRN PO Dextrose/Water (DEXTROSE 50%-WATER) 50 ML ASDIR PRN IV (CKD) Hydrocodone Bitart/Acetaminophen (NORCO 5/325 TABLET) 1 TAB Q6H PRN PRN PO Melatonin (MELATONIN) 6 MG BEDTIM E PRN PRN PO Simethicone (SIMETHICONE) 80 MG Q6H PRN PRN PO Tramadol HCl (ULTRAM) 50 MG Q6H PRN PRN PO Sodium Chloride (SODIUM CHLORIDE 0.9%) 1,000 ML .Q10H IV (DC) Ceftriaxone Sodium (ROCEPHIN) 1,000 MG X1ED STA IV (DC) Sodium Chloride (SODIUM CHLORIDE 0.9% PF) 10 MLCeftriaxone Sodium (ROCEPHIN) 1,[address] A IV (DC) Sodium Chloride (SODIUM CHLORIDE 0.9% PF ) 10 MLSodium Chloride (SODIUM CHLORIDE 0.9%) 2,85 0 ML X1ED STA IV (DC) Vancomycin HCl (VANCOMYCIN HCL) 1,000 MG X1ED STA IV (DC) Sodium Chloride (SODIUM CHLORIDE 0.9%) 250 ML I O:24 hour I O ending at 0700: 12/18 0700 12/17 1900 Intake Total Output Total Balance Patient 95 kg Weight Weight Standing scale Measurement Method Nutrition assessment:The data set between the solid lines has been imported from the dietitian's assessment. Any exceptions have been noted under Provider comments. _ BMI Calculated: 31.8Nutrition related diagnosis: Nutrition diagnosis details: Nutrition problem: Nutrition etiology: Nutrition signs and symptoms: Nutritio n prescription: Dietitian name: Assessment completed: _ Provider comments on imported dietitian assessment: Physical ExamGeneral appearance: alert, awake, orientedWound/incision : Location:Left foot wound noted with eschar base along lateral and dorsal foot with erythema noted, no fluctuant, no mal odor, no tracking, n o mal odorHead/Eyes: atraumaticENT: normal dentitionNeck: full range of motionCardiovascular: normal capillary refillAbdomen: soft, non-tenderGenitourinary: no t indicated, deferredExtremities:Left moves all, Right moves allLE vascular pulse assess:Palpable L posterior tibialis, Palpable L dorsalis pedisCapillary refill: Capillary refill (in seconds): < 3 seconds Left footEdema:pitting Lef t footNeuro/WELT RANDER: alert, oriented X 3 ResultsFindings/Data:Laboratory Tests: 12/18 12/18 12/18 12/18 12/18 1103 0740 0647 0259 0259Chemistry POC Glucose (74 - 106 mg/dL) 170 H 255 H 257 H Hemoglobin A1c (% HbA1) 13.0 Estim Average Glucose (MG/DL) 326 Triglycerides (20 - 150 mg/dL) 145 Cholesterol (0 - 200 mg/dL) 156 LDL Cholesterol Measurd (100 - 129 106mg/dL) HD L Cholesterol (40 - 60 mg/dL) 52 Cholesterol/HDL Ratio (0 - 4.9 RATIO) 3.0 TSH (0.36 - 3.74 uIU/mL) 0.669 12/183 2114 2114 Chemistry Sodium (136 - 145 mmol/L) 136 Potassiu m (3.5 - 5.1 mmol/L) 3.4 L Chloride [...] mill/mm3) 4.96 Hgb (11.5 - 15.5 gram/dL) 14. 4 Hct (36.0 - 46.0 %) 43.2 MCV (80 - 98 fL) 87.1 MCH (27.0 - 33.0 picogram) 29.0 MCHC (33.0 - 36. 0 gram/dL) 33.3 RDW (11.6 - 16.2 %) 12.4 RDW Std Deviation (37.0 - 51.0 fL) 39.1 Plt Count (150 - 450 K/mm3) 237 MPV (6.7 - 11.0 fL) 12.2 H Neut % (Auto) (39.0 - 69.0 %) 54.7 Lymph % (Auto) (25.0 - 55.0 %) 34.1 [place] % (Auto) (0.0 - 10.0 %) 7.9 Eos % (Auto) (0.0 - 5.0 %) 2.0 Baso % (Auto) (0. 0 - 1.0 %) 0.5 Neut # (Auto) (1.8 - 7.7 K/mm3) 4.59 Lymph # (Auto) (1.0 - 5.0 K/mm3) 2.86 [place] # (Auto) (0 - 0.8 K/mm3) 0.66 Eos # (Auto) (0.0 - 0.5 K/mm3) 0.17 Baso # (Auto) (0.0 - 0.2 K/mm3) 0.04 Add Manual Diff NO Nucleated RBC % (0 - 0 %) 0.0 Nucleated RBCs # (Man) (0.0 - 0.1 K/mm3) 0.00 Serology SARS-CoV-2 Ag (Rapid) (NEGATIVE) NEGATIVE Urines Urine Color (YELLOW) Light-Yello w Urine Appearance (CLEAR) CLEAR Urine pH (5.0 - 8.0) 5.5 Ur Specific [place] (1.001 - 1.035) 1.044 Urine Protein (NEGATIVE mg/dL) NEGATIVE Urine Glucose (UA) (NEGATIVE mg/dL) >1000 (4+) Urine Ketones (NEGATIVE mg/dL) NEGATIVE Urine Blood (NEGATIVE mg/dL) Negative Urine Nitrite (NEGATIVE) NEGATIVE Urine Bilirubin (NEGATIVE mg/dL) NEGATIVE Urine Urobilinogen (NEGATIVE mg/dL) Normal Ur Leukocyte Esterase (NEGATIVE Lisette/uL) NEGATIVE Urine RBC (0 - 5 #/HPF) 0-2 Urine WBC (0 - 5 per HPF) 0-5 Ur Epithelial Cell s (FEW per HPF) FEW Urine Bacteria (NONE #/HPF) FEW H Recent Impressions:RADIOLOGY - XR CHEST 1 V 12/17 2039 Report Impression - Status: SIGNED Entered: 12/17/20212109 IMPRESSION:1. Bilateral pulmonary scarring.2. No evidence of acute cardiothoracic abnormalities. Location code: GWImpression By: Shaka Duarte M.D.RADIOLOGY - XR FOOT 3 + V LT 12/17 2129 Report Impression - Status: SIGNED Entered: 12/17/20212206 IMPRESSION: No acute abnormality by plain film. Small heel spur.Impression By: Esteban Mcelroy M.D. Diagnosis, Assessment PlanFree Text A P:41 yo female was seen for unstageable ulcer with cellulitis Xray left foot No acute abnormality by plain film. Small heel spur. Recommend abx per primary teamrecommend elvate left lower extremity MRI ordered Awaiting final images for treatment plan . In the interim, recommend abx Thank you for the consultationConsultants: podiatry at 2314 RPT #:[id number] OF [id number]:49:00V.PDOC 2 [id number] for patient [id number]:15:00 2021-12-18 13:34:00 [id number]:34:00 [facility] ([facility]ENTERHospitalist Progress NoteREPORT#:[id number] REPORT STATUS: SignedDATE:12/18/21 TIME: 1334 PATIENT: MARCE HUBBARD UNIT #: [id number]#: [id number] ROOM[place]BED: [place] [address]DOB: [birth year] AGE: 41 SEX: F ATTEND: Amelia Herr [facility] AUTHOR: Sdidharth Heaton NP * ALL edits or amendments must be made on the electronic/computer document * SubjectiveChief complaint:left foot wound/swelling/blisters Review of SystemsAll systems rev neg: except as marked Objective GeneralVS/I O:Vital Signs: Date Time Temp Pulse Resp B/P B/P Pulse O2 O2 Flow FiO2 Mean Ox Delivery Rate 12/18 1123 98.1 85 14 129/80 96.4 96 12/18 0738 97.9 88 16 141/87 105. 3 97 12/18 0615 97 12/18 0528 98.2 88 18 153/90 110.8 97 12/18 0301 97.9 89 16 145/87 106.8 98 12/17 2003 97.7 100 18 149/101 117 99 Room air 2 4 hour I O ending at 0700: 12/18 0700 12/17 1900 Intake Total Output Total Balance Patient 95 kg Weight Weight Standing scale Measurement Method PATIENT WEIGHT: Weight (lb): Weight (oz): Weight (kg): 95.000 Physical ExamGeneral appearance: alert, awake, orientedHead/Eyes: atraumatic, clear cornea, EOMI, normal conjunctiva/sclera, normal eyelids/periorb., normocephalic, PERRLENT : normal dentition, normal ear left, normal ear right, normal nose, normal pharynx, normal sinusNeck: full range of motion, non-tender, normal thyroid, supple/no meningismus, no bruit/NL carotids, no JVD, no masses or swellingCardiovascular: normal capillary refill, normal heart sounds, regular rate rhythm, no ectopy, no gallop, no heave, no murmur, no rub, no thrillRespiratory: aerating well, clear to auscultation, symmetric expansion, no distressAbdomen: non-tender, normal bowel sounds , soft, no distention, no guarding, no hernia, no mass/organomegaly, no reboundExtremities: moves all, normal capillary refill, normal range of motionMusculoskeletal: normal inspection, painless range of motionNeuro/WELT RANDER: alert, oriented X 3, CNII-XII intact, normal speech, reflexes equal bilat, no motor deficits, no sensory deficitsSkin: dry, intactLymphatics: axilla normal, inguinal normal, neck normal, no lymphadenopathyPsychiatry: normal affect, normal judgment/insight, normal mood, not homicidal, no t suicidal Free Text Obj NotesFree Text Obj Notes:Left foot-patient has swelling around the left ankle extending into the left lower leg. Sh e also swelling on the dorsum of the left foot mos t specifically on the lateral aspect. She has a open wound with an eschar nondraining that is 1 x 3 inches along the lateral aspect of the left foot over the mid fifth metatarsal, she also has a 2 x 1 cm open lesion with a eschar nondraining mid third metatarsal shaft on the dorsum of the foot. There is no surrounding cellulitis but there is edema. Pulses intact negative sensory deficit Diagnosis, Assessment PlanProblem List/A P: 1. Diabetic foot ulcer 2. Sepsis 3. Uncontrolled hypertension Consultants: podiatry Free Text DxA P NotesFree text DxA P notes:1. sepsissuspect due to diabetic foot ulcerblood culturesempiric abx 2. diabetic foot ulcer, leftpodiatry consultMRI footarterial/doppler of LLEabxwound care 3. JY3wionheig insulin 70/30SSI , qbncfgzpbkLwV9r 13.0 4. HTNresume home meds 5. DVT prophylaxis Quality: Gen Med Crit Care VTE ProphylaxisVTE prophylaxis initiated: yes (Lovenox) Current MedicationsCurrent medication review:I attest that the foregoing medication list in the medical record is true, accurate, an d complete to the best of my knowledge. Advanced Care Plan 65 or OlderDiscussed with: patientDiscussion included: code status (full code) Electronically Signed by Siddharth Heaton NP o n 12/18/21 at 1341 at 2043 RPT #:[id number] OF REPORTPRProgress [id number]:34:00V.[id number] l able for patient [id number]:41:37 2021-12-18 01:25:00 [id number]:25:00 [facility] ([facility] History PhysicalREPORT#:[id number] REPORT STATUS: SignedDATE:12/18/21 TIME: 0125 PATIENT: MARCE HUBBARD UNIT #: [id number]#: [id number] ROOM[facility]BED: [facility]DOB: [birth year] AGE: 41 SEX: F ATTEND: Amelia Herr MDA AUTHOR: Amelia Herr MD * ALL edits or amendments must be made on the electronic/computer document * History of Presen t Illness HPIChief complaint:Left foot wound since November 17CP:PCP: Benjamin Ramirez MD HPI:Patient is a 41-year-old female with no know n PCP. She has a history of obesityBMI 31.8, insulin-dependent diabetes on insulin 70/30 10 units twice daily, Metformin 1000 mg twice daily and glipizide, hypertension previously on lisinopril which was discontinued. [place] when she went out back and there was aloe plant and she decided to rub it o n her feet and within 30 minutes her left foot dorsum blistered up and it started swelling the next day so she went on the to a doctor in [place] and he wrote her a prescription for dexamethasone 8 mg IM x1 Rocephin 1 g IV M x1 daily which she injected herself for 10 days and Levaquin 500 mg p.o. daily for 10 days. She completed this on 04 December and her left foot continues to swell.She has a open wound with an eschar nondrainingthat is 1 x 3 inches along the lateral aspect of the left foot over the mid fifth metatarsal, she also has a 2 x 1 cm open lesion with a eschar nondraining mid third metatarsal shaft on the dorsum of the foot. Ther e is no surrounding cellulitis but there is edema. She had no other treatment and saw the podiatris t Monday morning December 17 and he referred her to the emergency room. She got the Covid vaccine 2 injections but she actually had Covid June 0 was hospitalized at [facility] for 3 [facility]. She denied any fevers orchills no cough o r congestion no chest pain no shortness of breath and no nauseavomiting or diarrhea review of systems was otherwise negative. She presented tot emergency room at 8 PM ER evaluation she was afebrile pulse 100 blood pressure 149/101 pulse ox 99%. Covid antigen was negative CBC was normal, urinalysis was negative, electrolytes essentially normal potassium 3.4 which I replaced. Renal functions normal GFR greater tyrese n 60 glucose 320 LFTs are normal except alk phos 160 and troponin is negative. Code sepsis called by ER patient was given Rocephin and vancomycin and had blood cultures x2 urine culture sent. Patient will get MRI of the foot and podiatry pereira s been consulted continue Rocephin 1 g IV daily. X-ray of the foot was negative chest x-ray was negative. Review of systems otherwise negativeInformant/historian: patient History Pas t Medical Surgical HxPatient History: 1. Uncontrolled hypertension 2. Sepsis 3. Diabetic foot ulcer Additional medical history:history of obesity BMI 31.8, insulin-dependent diabetes on insulin 70/30 10 units twice daily, Metformin 1000 mg twice daily and glipizide, hypertension previously on lisinopril which was discontinuedAdditional surgical history:Cholecystectomy, x4, right fifth toe amputation 2019, umbilical incisional hernia repair, bilateral tubal ligation, right oophorectomy from recurrent ovarian cysts Family HistoryAdditional family history:Mother at age 71 had diabetes end-stage renal disease Father at age 70 of congestive heart failure Social HistoryAlcohol use: Denies EtOH useDrug use: Denies recreationa l drugsSmoking status: Smoking status for patients 13 years old or older: Never SmokerAdditional social history:Resides at home with her and family ambulates independently independent o f all ADLs Medication/Allergy-Vaccine HxAllergies:Coded Allergies:No Known Allergies (12/17/21) Review of SystemsConstitutional:Denies: chills, fatigue, fever, generalized weakness, lethargy, malaise, recent wt loss, other. Skin:Reports: swelling (left foot and ankle), other (left foot 2 wounds). Denies: abrasion, bruising, contusion, diaphoresis, ecchymosis, itching, laceration, rash. Allergy/Immun:Denies: allergic reaction, anaphylaxis, hives, itching, rhinorrhea, sneezing, other. Eyes:Denies: redness, discharge , visual loss/blurred, itching, diplopia, eye pain , photophobia, swelling, other. ENT:Denies: ear drainage, ear ringing, earache, hearing loss, mouth pain, nasal congestion, nose bleeding, sinus problem, sore throat, throat pain, throat swelling, tongue pain, tongue swelling, toothache, voice change, other. Respiratory:Denies: SCHMID (dyspnea on exertion), hemoptysis, non productive cough, parox nocturna l dyspnea, pleurisy, pleuritic pain, pneumonia, productive cough (sputum), SOB, wheezing, other. Cardiovascular:Denies: chest pain, SCHMID (dyspnea on exertion), edema, orthopnea, palpitations, parox nocturnal dyspnea, other. GI:Denies: abdominal pain, anorexia, constipation, diarrhea , dysphagia, GERD, hematemesis, hematochezia, hiatal hernia, melena, nausea, rectal pain, vomiting,other. :Denies: dysuria, flank pain, frequency, hematuria, nocturia, pelvic pain, , urgency, urinary retention, vaginal bleeding, vaginal discharge, other. Musculoskeletal:Reports: extremity swelling (lef t foot), joint swelling (left ankle). Denies: arthritis, extremity pain, joint pain, lumbar pain, myalgias, neck pain, thoracic pain, other. Neuro:Denies: bladder dysfunction, bowel dysfunction, change in LOC, confusion, dizziness , focal weakness, gait problem, headache, lightheaded, numbness, seizure, slurred speech, spinning sensation, syncope, unable to speak, vision change, weakness, other. Psych:Denies: agitation, anxiety, auditory hallucination, change in mental status, confusion, delusional, depression, homicidal ideation, hostile, insomnia, stress, suicidal ideation, visual hallucination, other. All systems rev neg: excep t as noted Physical ExamVS/I O:Vital Signs Date Temp Pulse Resp B/P B/P Mean Pulse Ox FiO2 12/17 97.7 100 18 149/101 117 99 Last Documented: Result Date Time Pulse Ox 99 12/17 2003 B/P 149/101 12/17 2003 B/P Mean 117 12/17 2003 O2 Delivery Room air 12/17 2003 Temp 97.7 12/17 200 4 Pulse 100 12/17 2003 Resp 18 12/17 2003 24 hour I O ending at 0700: 12/18 0700 12/17 1900 Intake Total Output Total Balance Patient 95 kg Weight Weight Standing scale Measurement Method Patien t Weight and BMI Weight (kg): 95.000 BMI: 31.8 General appearance: obese, alert, awake, oriented, pleasant, conversational, mental statu s normal, no respiratory distressHead/Eyes: atraumatic, clear cornea, EOMI, normal conjunctiva/sclera, normal eyelids/periorb., normocephalic, PERRLENT: normal dentition, alexis l ear left, normal ear right, normal nose, normal pharynx, normal sinusNeck: full range of motion, non-tender, normal thyroid, supple/no meningismus, no bruit/NL carotids, no JVD, no masses or swellingCardiovascular: normal capillary refill, normal heart sounds, regular rate rhythm, no ectopy, no gallop, no heave, no murmur, no rub, no thrillRespiratory: aerating well, clear to auscultation, symmetric expansion , no distressAbdomen: non-tender, normal bowel sounds, soft, no distention, no guarding, no hernia, no mass/organomegaly, no rebound Abdomen quadrants:LLQ normal bowel sounds, LUQ normal bowel sounds, RLQ normal bowel sounds, RUQ alexis l bowel soundsExtremities: moves all, normal capillary refill, normal range of motionMusculoskeletal: normal inspection, painless range of motionNeuro/WELT RANDER: alert, oriented X 3, CNII-XII intact, normal speech, reflexes equal bilat, no motor deficits, no sensory deficitsLymphatics: axilla normal, inguinal normal, neck normal, no lymphadenopathyPsychiatry: normal affect, normal judgment/insight, normal mood, not homicidal, no t suicidal ResultsFindings/Data:Laboratory Tests: 12/18 12/17 12/17 0053 2114 2114 Chemistry Sodiu m (136 - 145 mmol/L) 136 Potassium (3.5 - 5.1 mmol/L) 3.4 L Chloride (98 - 107 mmol/L) 103.0 Carbon Dioxide (21 - 32 mmol/L) 27.0 Anion Gap (10 - 20) 9.4 L BUN (7 - 18 mg/dL) 15 Creatinine (0.55 - 1.02 mg/dL) 0.80 Glomerular Filtr Rate (>=60 mL/min) > 60 BUN/Creatinine Ratio (10 - 20 ) 19.0 Glucose (74 - 106 mg/dL) 320 H Lactic Acid (0.4 - 1.9 mmol/L) 0.8 Calcium (8.5 - 10.1 mg/dL ) 9.2 Total Bilirubin (0.0 - 1.0 mg/dL) 0.40 Direct Bilirubin (0.0 - 0.20 mg/dL) 0.10 AST (15 - 37 IUnit/L) 19 ALT (12 - 78 IUnit/L) 23 Total Alk Phosphatase (45 - 117 IUnit/L) 160 H Troponin I (0 - 45 pg/mL) <4.0 Total Protein (6. 4 - 8.2 gram/dL) 8.0 Albumin (3.4 - [...] (39.0 - 69.0 %) 54.7 Lymph % (Auto ) (25.0 - 55.0 %) 34.1 [place] % (Auto) (0.0 - 10.0 %) 7.9 Eos % (Auto) (0.0 - 5.0 %) 2.0 Baso % (Auto) (0.0 - 1.0 %) 0.5 Neut # (Auto) (1.8 - 7.7 K/mm3) 4.59 Lymph # (Auto) (1.0 - 5.0 K/mm3) 2.86 [place] # (Auto) (0 - 0.8 K/mm3) 0.66 [...] pH (5.0 - 8.0) 5.5 Ur Specific [place] (1.001 - 1.035) 1.044 Urine Protein (NEGATIVE mg/dL) NEGATIVE Urine Glucose (UA) (NEGATIVE mg/dL) >1000 (4+) Urine Ketones (NEGATIVE mg/dL) NEGATIVE Urine Blood (NEGATIVE mg/dL) Negative Urine Nitrite (NEGATIVE) NEGATIVE Urine Bilirubi n (NEGATIVE mg/dL) NEGATIVE Urine Urobilinogen (NEGATIVE mg/dL) Normal Ur Leukocyte Esterase (NEGATIVE Lisette/uL) NEGATIVE Urine RBC (0 - 5 #/HPF) 0-2 Urine WBC (0 - 5 per HPF) 0-5 Ur Epithelial Cells (FEW per HPF) FEW Urine Bacteri a (NONE #/HPF) FEW H Laboratory Tests 12/17/212113:[Embedded Image Not Available] Radiology data:Recent Impressions:RADIOLOGY - XR CHEST 1 V 12/17 2039 Report Impression - Status: SIGNED Entered: 12/17/20212109 IMPRESSION:1. Bilateral pulmonary scarring.2. No evidence of acute cardiothoracic abnormalities. Location code: GWImpression By: Shaka Duarte M.D.RADIOLOGY - XR FOOT 3 + V LT 12/17 2129 Report Impression - Status: SIGNED Entered: 12/17/20212206 IMPRESSION: No acute abnormality by plain film. Small heel spur.Impression By: Esteban Mcelroy M.D. Results: labs reviewed, vital signs reviewed, vital signs stable Free Text PE NotesFree Text PE Notes:Left foot-patient has swelling around the left ankle extending into the left lower leg. She also swelling on the dorsum of the left foot most specifically on the lateral aspect. She has a open wound with an eschar nondraining that is 1 x 3 inches along the lateral aspect of the left foot over the mid fifth metatarsal, she also has a 2 x 1 cm open lesion with a eschar nondraining mid third metatarsal shaft on the dorsum of the foot. There is no surrounding cellulitis but there is edema. Pulses intact negative sensory deficit Diagnosis, Assessment PlanProblem List/A P: 1. Diabetic foot ulcer 2. Sepsis 3. Uncontrolled hypertension Free Text A P:1) sepsi s due to diabetic foot ulcer-code sepsis ordered b y ER and patient received 2.8 L normal saline 1 dose of Rocephin and vancomycin. Blood cultures x2 and urine culture were sent. We will continue Rocephin 1 g IV daily and patient is on normal saline at 100 cc an hour. X-ray of the foot was negative, left foot MRI has been ordered. Podiatry already consulted by ER2) diabetes-che k hemoglobin A1c lipid profile TSH. Patient will b e on 2200 [address] and will continue her 70 3010 units before breakfast and dinner and hold off restarting the Metformin and glipizide. We will do Accu-Cheks with high-dose Humalog coverage3) uncontrolled hypertension-patient will be restarted on lisinopril 10 mg daily. Both to hel p control the blood pressure but also for renal protection indiabetics. Will monitor blood pressure closely and adjust medication as needed.4) DVT prophylaxis-patient has been place d on sequential moderate compression deviceConsultants: podiatryPlan discussed with: patient Quality: Gen Med Crit Care VTE ProphylaxisVTE prophylaxis initiated: yes (mechanical comp device) Current MedicationsCurrent medication review:I attest that the foregoing medication list in the medica l record is true, accurate, and complete to the best of my knowledge. Advanced Care Plan 65 or OlderDiscussed with: patientDiscussion included: code status (full code) at 0146 RP T #:[id number] OF REPORTHPHistory and physical [id number]:25:00V.[id number] 4 AVAvailable for patient [id number]:46:36 2021-12-17 21:25:00 [id number]:25:00 [facility] ([facility])EMERGENCY PROVIDER REPORTREPORT#:[id number] REPORT STATUS: SignedDATE:12/17/21 TIME: 2124 PATIENT: MARCE HUBBARD UNIT #: [id number]#: [id number] ROOM/BED: 3027-AAGE: 41 SEX: F PC P PHYS: Benjamni Ramirez MDSERVICE AUTHOR: Zachery Nino APRNNDav * ALL edits or amendments must be made on the electronic/computer document * Zachery Nino 12/17/212124:HPI-Foot Prob/Inj Free Text HPI NotesFree Text HPI [id number] female with history of diabetes and hypertension presents to ED withleft foot wound since 11/17/2022. Patient was seen in [place] with moxifloxacin and ceftriaxone with betamethasone prescribed, last dose 2 weeks ago. Patient was seen by her PCP, Pierce Cardona in [place], and referred to content administrator, Dr. Rockwell-seen today and sent to ED for further evaluation. GeneralConfirmed Patient YesInitial Greet Date/Time 12/17/[address] [place] [address] CLINIC PresentationChief Complaint Foot pain LHx Obtained From PatientOnset Occurred Weeks agoSymptom Duration Since onsetProgression since Onset UnchangedCaused by No trauma by historyAssociated Other Pt denies other symptomsExacerbated by NothingRelieved by Reginald siu ContextRecent Healthcare Recent doctor visit Review of Systems ROS StatementsAll systems rev neg except as marked. Focused Review of SystemsConstitutionalDenies: Chills, Fever, Lethargy. SkinReports: Ulceration. NeurologicDenies: Focal weakness, Numbness. Past Medical History - AdultStated Complaint PAIN ANDSWELLING TO LT FTSENT BY PCP FOR ADMITAllergiesCoded Allergies:No Known Allergies (12/17/21) Home MedicationsReported MedicationsmetFORMIN (GLUCOPHAGE) 1,000 MG PO BI D glipiZIDE (GLUCOTROL) 10 MG PO BID Insulin Aspar t Prot/Insuln Asp (NovoLOG Mix 70-30 FLEXPEN (15mL)) Discontinued Reported Medications[INSULIN] Review of Nursing Notes Triage notes reviewedPt reports no significant: Past surgical history, Social historyPast Medica l History:Reports: Diabetes mellitus, Hypertension . Physical Exam Vital SignsVital SignsFirst Documented: Result Date Time Pulse Ox 99 12/17 2003 B/P 149/101 12/17 2003 B/P Mean 117 12/17 2003 O2 Delivery Room air 12/17 2003 Temp 36.5 12/17 2003 Pulse 100 12/17 2003 Resp 18 12/17 2003 Last Documented: Result Date Time Pulse Ox 99 12/17 2003 B/P 149/101 12/17 2003 B/P Mean 11 7 12/17 2003 O2 Delivery Room air 12/17 2003 Temp 36.5 12/17 2003 Pulse 100 12/17 2003 Resp 18 12/17 2003 Review of Vital Signs Reviewed Focuse d PEGeneral/Const General/Const Awake, Alert, Well appearingMS Ankle/Foot Text/Dict NoteOpen wound to dorsum of left foot.Skin Text/Dict NotesSEE ABOVENeurologic Neurologic Oriented X3, Speech NL, No motor deficits, No sensory deficit s ImagesAnkle/Foot Feet - Top View (L)[Embedded Image Not Available] 1) Wound Interpretation Diagnostics Lab Results InterpretationResultsLaboratory Tests 12/17/212113:[Embedded Image Not Available]Laboratory Tests: 12/18 12/17 12/17 0053 2113 2113 Chemistry Sodium (136 - 145 mmol/L) 136 Potassiu m (3.5 - 5.1 mmol/L) 3.4 L Chloride (98 - 107 mmol/L) 103.0 Carbon Dioxide (21 - 32 mmol/L) 27.0 Anion Gap (10 - 20) 9.4 L BUN (7 - 18 mg/dL ) 15 Creatinine (0.55 - 1.02 mg/dL) 0.80 Glomerular Filtr Rate (>=60 mL/min) > 60 BUN/Creatinine Ratio (10 - 20) 19.0 Glucose (74 - 106 mg/dL) 320 H Lactic Acid (0.4 - 1.9 mmol/L) 0.8 Calcium (8.5 - 10.1 mg/dL) 9.2 Total Bilirubin (0.0 - 1.0 mg/dL) 0.40 Direct Bilirubi n (0.0 - 0.20 mg/dL) 0.10 AST (15 - 37 IUnit/L) 1 9 ALT (12 - 78 IUnit/L) 23 Total Alk Phosphatase (45 - 117 IUnit/L) 160 H Troponin I (0 - 45 pg/mL) <4.0 Total Protein (6.4 - 8.2 gram/dL) 8. 0 Albumin (3.4 - 5.0 g/dL) 3.7 Globulin (2.7 - 4. 2 gram/dL) 4.3 H Albumin/Globulin Ratio (0.75 - [...] % (Auto) (25.0 - 55.0 %) 34.1 [place] % (Auto) (0.0 - 10.0 %) 7.9 Eos % (Auto) (0.0 - 5.0 %) 2.0 Baso % (Auto) (0.0 - 1.0 %) 0.5 Neut # (Auto) (1.8 - 7.7 K/mm3) 4.59 Lymph # (Auto) (1.0 - 5.0 K/mm3) 2.86 [place] # (Auto) (0 - 0.8 K/mm3) 0.66 Eos # (Auto) (0.0 - 0.5 K/mm3) 0.17 Baso # (Auto) (0.0 - 0.2 K/mm3) 0.04 Add Manual Diff NO Nucleated RBC % (0 - 0 %) 0.0 Nucleated RBCs # (Man) (0.0 - 0.1 K/mm3) 0.00 Serology SARS-CoV-2 Ag (Rapid) (NEGATIVE) NEGATIVE Urines Urine Color (YELLOW) Light-Yellow Urine Appearance (CLEAR) CLEAR Urin e pH (5.0 - 8.0) 5.5 Ur Specific [place] (1.001 - 1.035) 1.044 Urine Protein (NEGATIVE mg/dL) NEGATIVE Urine Glucose (UA) (NEGATIVE mg/dL) >1000 (4+) Urine Ketones (NEGATIVE mg/dL) NEGATIVE Urine Blood (NEGATIVE mg/dL) Negative Urine Nitrite (NEGATIVE) NEGATIVE Urine Bilirubi n (NEGATIVE mg/dL) NEGATIVE Urine Urobilinogen (NEGATIVE mg/dL) Normal Ur Leukocyte Esterase (NEGATIVE Lisette/uL) NEGATIVE Urine RBC (0 - 5 #/HPF) 0-2 Urine WBC (0 - 5 per HPF) 0-5 Ur Epithelial Cells (FEW per HPF) FEW Urine Bacteria (NONE #/HPF) FEW H Microbiology: Date/Time Procedure - Status Source Growth 12/17 2113 Urine Culture - COMP URINE 12/17 2113 Blood Culture - RES BLOOD Recent Impressions:RADIOLOGY - XR CHEST 1 V 12/17 2039 Report Impression - Status: SIGNED Entered: 12/17/20212109 IMPRESSION:1. Bilateral pulmonary scarring.2. No evidence of acute cardiothoracic abnormalities. Location code: GWImpression By: Shaka Duarte M.D.RADIOLOGY - XR FOOT 3 + V L T 12/17 2129 Report Impression - Status: SIGNED Entered: 12/17/20212206 IMPRESSION: No acute abnormality by plain film. Small heel spur.Impression By: Esteban Hurt Lab Imaging StatementLaboratory radiographic studies reviewed and considered in the medical decision-making. Point of Care TestingPulse Oximetry Pulse Ox % 99 On: Room air Interpretation Interpreted by me, Pulse oximetry normal Re-Evaluation MDM Re-Evaluation/Progress Compartment SyndromeThere are no signs or symptoms of compartment syndrome in the injured extremity at the time of this examination. Any pain the patient has is in proportion to the injury, the peripheral circulation is intact, capillary refill is not delayed, and there is no numbness, tingling or paresthesia. Tissue Perfusion ReassessmentPatient tissue perfusion reassessment completed. ED CourseMedication(s) OrderedMedication(s) Ordered:Anti-Infective Agents Sig/Adriano Start time Last Medication Dose Route Stop Time Status Admin Ceftriaxone Sodium 1,000 MG X1ED STA 12/17 2319 DC 12/17 Sodium Chloride 10 ML IV 12/17 Ceftriaxone Sodium 1,000 MG X1ED STA 12/17 2027 DC Sodium Chloride 10 ML IV 12/17 2029 Vancomycin HCl 1,00 0 MG X1ED STA 12/17 2027 DC 12/17 Sodium Chloride 250 ML IV 12/17 Electrolytic, Caloric, And Raul Sig/Adriano Start time Last Medication Dose Route Stop Time Status Admin Sodium Chloride 1,000 ML .Q10H 12/18 0045 AC IV 12/18 1244 Sodiu m Chloride 2,850 ML X1ED STA 12/17 2027 DC 12/17 IV 12/17 ConsultationConsultation Referral/Consult Name Grant Laguna DPM Vice President Of Manufacturing Called PODIATRY Requested Call Time 0030 Requested Call Date 12/18/21 Vice President Of Manufacturing Will see patient, Agrees with eval, Agrees with plan, ADMIT TO HOSPITALIST Differential DiagnosisDifferential Diagnosis Osteomyelitis Patient Discharge Departure Vital Signs/ConditionVital SignsFirst Documented: Result Date Time Pulse Ox 99 12/17 2003 B/P 149/101 12/17 2003 B/P Mean 117 12/17 2003 O2 Delivery Room air 12/17 2003 Temp 36.5 12/17 200 4 Pulse 100 12/17 2003 Resp 18 12/17 2003 Last Documented: Result Date Time Pulse Ox 99 12/17 2003 B/P 149/101 12/17 2003 B/P Mean 117 12/17 2003 O2 Delivery Room air 12/17 2003 Temp 36.5 12/17 2003 Pulse 100 12/17 2003 Resp 18 12/17 2003 All vital signs available at the time of this entry have been reviewed. Condition Stable Clinical ImpressionClinical ImpressionPrimary Impression: Diabetic foot ulcer Disposition DecisionAdmit Admit Physician Name Amelia Herr MD Admit Physician Hospitalist Request Time 1244 Request Date 12/18/21 )( Admission Accepts Yes )( Accepted Time 0046 )( Accepted Date 12/18/21 Call Information will see patient, agrees with eval, agrees with plan Discharge/Care PlanCounseled Regarding Diagnosis, Lab results, Imaging studies, Need for admission Admit NoteI have spoken with the patient and/or caregivers. I hav e explained the patient'scondition, diagnoses and treatment plan based on the information availabl e to meat this time. I have answered the patient's and/or caregiver's questions and addressed any concerns. The patient and/or caregivers have as good an understanding of the patient's diagnosis , condition and treatment plan as can beexpected a t this point. The patient has been stabilized within the capability ofthe emergency department . The patient will be transported for further care and management or will be moved to an observatio or inpatient service. I have communicated with the staff or medical practitioner taking over this patient's care. Quality MeasuresBP F/U for HTN F/u with PCP/other doc, Pre-existing HTNSmoking Cessation Screened, non userTobacco Screening/Cessation 18 years or older, Denies tobacco use Brandy Carrillo 12/22/212044:Patient Discharge Departure Supervising Physician Note MidLv Saw Pt AloneI have reviewed the PA/DELIVERY TABLE FEEDER's note and plan of care. I was available for consultation as needed at all time s during the patient's visit in the emergency department. I agree with the clinical impression , plan and disposition. at 0427 at 2045RPT #:[id number] OF REPORTDeTar Healthcare System department [id number]:25:00V.[id number] antwan ilable for patient [id number]:28:09
[2023-10-11] MEDS ORDERED: ONDANSETRON 4 MG/2 ML VIAL ONE ×2 (12:45→14:24)
[2023-10-11] MEDS ORDERED: MORPHINE 4 MG/ML SYR ONE (12:45)
--- NOTE | 2023-10-11 12:55 | RAD REPORT ---
EXAM DESCRIPTION: CT - Foot Right Wo Con - 10/11/2023 12:23 pm CLINICAL HISTORY: osteo eval COMPARISON: No comparisons TECHNIQUE: Thin cut axial CT imaging of the right foot, performed without IV contrast. Multiplanar r eformats were generated and reviewed. All CT scans are performed using dose optimization technique as appropriate and may include automated exposure control or mA/KV adjustment according to patient size. FINDINGS: Small ulcer at the sole of the foot opposite the head of the third metatarsal with soft ti ssue tracking from this region. Soft tissue irregularity along the plantar aspect of the second and t hird digit, as well as the second interdigital web. Osseous lucencies along the midshaft third digit proximal phalanx, base of the third proximal phalanx, and head of the third metatarsal. Adjacent exte nsive soft tissue gas along the third digit, extending along the plantar and dorsal aspect of the aby t along the axis of the third metatarsal. No appreciable fluid collections within limits of noncontra st evaluation. Extensive soft tissue swelling along the subcutaneous soft tissues both plantar and do rsal aspects. Large calcaneal spur. Enthesopathy at the Achilles tendon attachment. IMPRESSION: Osseous lucencies along the third digit proximal phalanx and head of the third metatarsa l, concerning for osteomyelitis. Soft tissue ulcer along the sole of the foot opposite the head of the third metatarsal with soft tiss ue gas tracking along both plantar and dorsal aspects of the forefoot to midfoot along the axis of th e third metatarsal, and also into the third digit soft tissues. No appreciable fluid collections with in limits of noncontrast evaluation.
[2023-10-11 13:04] LABS: Absolute Lymphocytes (CBC) 1.4 K/uL (0.7-4.9); Hematocrit 31.8 % (36.0-45.0); MCV 84.8 fL (80-100); Platelets 308 thou/uL (152-406); RBC Red Blood Cell Count 3.76 M/uL (3.86-4.86)
[2023-10-11 13:39] LABS: Protime INR 1.25
--- NOTE | 2023-10-11 13:47 | ER ---
Nurse's Notes [facility] Name: Glenna Finney Age: 42 yrs Sex: Female : 1980 Arrival Date: 10/11/2023 Time: 11:38 Bed 18 Private MD: Diagnosis: osteomyelitis right foot Presentation: 10/11 12:05 Chief complaint: Worsening diabetic foot wound to right foot, now c/o pain 10/10 and hb copious amount of drainage. Coronavirus screen: At this time, the client does not indicate any symptoms associated with coronavirus-19. Ebola Screen: No symptoms or risks identified at this time. Initial Sepsis Screen: Does the patient meet any 2 criteria? No. Patient's initial sepsis screen is negative. Does the patient have a suspected source of infection? No. Patient's initial sepsis screen is negative. Risk Assessment: Do you want to hurt yourself or someone else? Patient reports no desire to harm self or others. Onset of symptoms was October 11, 2023. 12:05 Method Of Arrival: Ambulatory hb 12:05 Acuity: GIGI 3 hb Historical: - Allergies: 12:15 No Known Drug Allergies; hb - PMHx: 12:15 Diabetes - NIDDM; Hypertension; hb - Immunization history:: Adult Immunizations up to date. - Social history:: Smoking status: Patient denies any tobacco usage or history of. Screenin:05 [facility] ED Fall Risk Assessment (Adult) History of falling in the last 3 months, me1 including since admission No falls in past 3 months (0 pts) Confusion or Disorientation No (0 pts) Intoxicated or Sedated No (0 pts) Impaired Gait No (0 pts) Mobility Assist Device Used No (0 pt) Altered Elimination No (0 pt) Score/Fall Risk Level 0 - 2 = Low Risk Maintained a safe environment, Provided non-skid footwear, Hourly rounding (assess needs \T\ fall precautionary measures) done. Abuse screen: Denies threats or abuse. Nutritional screening: No deficits noted. Tuberculosis screening: No symptoms or risk factors identified. Assessment: 12:05 General: Appears uncomfortable, well groomed, well developed, well nourished, Behavior me1 is cooperative, appropriate for age, anxious, crying, restless, Reports Worsening diabetic foot wound to right foot, now c/o pain 10/10 and copious amount of drainage. Pain: Complains of pain in right foot and right third toe and arch of right foot and ball of right foot and plantar aspect of right third toe Pain does not radiate. Pain currently is 10 out of 10 on a pain scale. Quality of pain is described as throbbing, Pain began 2-3 days ago. Is continuous. 12:05 Neuro: Level of Consciousness is awake, alert, obeys commands, Oriented to person, me1 place, time, situation, Appropriate for age. Cardiovascular: Capillary refill < 3 seconds Patient's skin is warm and dry. Respiratory: Airway is patent Respiratory effort is even, unlabored, Respiratory pattern is regular, symmetrical. Derm: Wound noted right foot and right third toe and arch of right foot and ball of right foot and plantar aspect of right third toe. 14:25 General: cefepime and vancomycin sent to OR at time of transfer. . me1 Vital Signs: 12:05 BP 141 / 85; Pulse 114; Resp 16; Temp 99.3(TE); Pulse Ox 100% on R/A; Weight 92.53 kg; hb Height 5 ft. 8 in. ; Pain 10/10; 12:15 BP 150 / 99; Pulse 112; Resp 20; Pulse Ox 100% ; me1 13:00 BP 132 / 83; Pulse 106; Resp 18; Pulse Ox 99% on R/A; me1 13:00 BP 134 / 86; Pulse 102; Resp 18; Pulse Ox 100% on R/A; me1 12:05 Body Mass Index 31.02 (92.53 kg, 172.72 cm) hb 12:05 Pain Scale: Adult hb ED Course: 11:40 Patient arrived in ED. mr 11:42 Uma Verma PA-C is PHCP. sb4 11:42 Collin Fernández MD is Attending Physician. sb4 12:03 Marie Goyal, TAMARA is Primary Nurse. me1 12:05 Patient has correct armband on for positive identification. Bed in low position. Call me1 light in reach. Side rails up X 1. Provided Education on: POC. Verbalized understanding. . 12:05 No provider procedures requiring assistance completed. me1 12:14 Triage completed. hb 12:15 Arm band placed on. hb 12:25 Foot Right Wo Con In Process Unspecified. EDMS 13:13 Inserted saline lock: 22 gauge in left forearm, using aseptic technique. me1 13:24 Blood Culture Adult (2) Sent. bc6 13:24 CMP Sent. bc6 13:24 Inserted saline lock: 20 gauge in left antecubital area, using aseptic technique. Blood bc6 collected. 13:29 Mateus Hidalgo MD is Attending Physician. sb4 13:46 Mateus Hidalgo MD is Hospitalizing Provider. sb4 13:46 Bo Hidalgo MD is Hospitalizing Provider. sb4 14:04 Wound Culture Sent. me1 14:15 Test, Urine Sent. me1 14:18 Note: us delayed: pt going to or. lc6 Administered Medications: 13:12 Drug: morphine IVP or IV 4 mg IVP once over 4 mins Route: IVP; Infused Over: 4 mins; me1 Site: left forearm; 14:27 Follow up: Response: No adverse reaction me1 13:12 Drug: Ondansetron IVP 4 mg IVP once; over 2 minutes Route: IVP; Site: left forearm; me1 14:27 Follow up: Response: No adverse reaction me1 Medication: 12:05 VIS not applicable for this client. me1 Outcome: 13:47 Decision to Hospitalize by Provider. sb4 14:26 Patient left the ED. bc6 Signatures: Dispatcher [employer] EDMS Consuelo Ortiz, Reg Reg mr Mitali Mulligan, RN RN Uma Gayle, PA-C PA-C sb4 Loulou Fatima bc6 Carter Dacosta lc6 Marie Goyal, RN RN me1 Corrections: (The following items were deleted from the chart) 14:22 12:05 Chief complaint: Worsening diabetic foot wound to right foot, now c/o pain 10/10 me1 and copious amount of drainage. hb
--- NOTE | 2023-10-11 13:47 | EDPHYS ---
Physician Documentation [facility] Name: Glenna Finney Age: 42 yrs Sex: Female : 1980 Arrival Date: 10/11/2023 Time: 11:38 Bed 18 Private MD: ED Physician Mateus Hidalgo HPI: 10/11 12:30 This 42 yrs old Female presents to ER via Ambulatory with complaints of sb4 diabetic foot wound. 12:47 patient states first noticed an ulcer on her right third toe 1 week ago. she was first sb4 seen at [facility] and given augmentin and discharged. it got worse, so she came here 4 days ago nd had xrays and blood work done. she was given IV vanc and zosyn and discharged with PO clindamycin which she states she has been taking as prescribed. she states it has become more painful, red, swollen, with a moderate amount of drainage. she does not monitor her blood sugar but reports compliance with her medications. Historical: - Allergies: 12:15 No Known Drug Allergies; hb - PMHx: 12:15 Diabetes - NIDDM; Hypertension; hb - Immunization history:: Adult Immunizations up to date. - Social history:: Smoking status: Patient denies any tobacco usage or history of. ROS: 12:49 MS/extremity: Positive for erythema, pain, swelling, tenderness, warmth, of the plantar sb4 aspect of right third toe, ball of right foot, arch of right foot and right third toe, 12:49 Constitutional: Negative for fever, chills, and weight loss, 12:49 All other systems are negative, Exam: 12:49 Head/Face: Normocephalic, atraumatic. Eyes: Extra-ocular motions intact. Periorbital sb4 areas with no swelling, redness, or edema. ENT: Mucous membranes moist. Respiratory: Lungs have equal breath sounds bilaterally, clear to auscultation and percussion. No rales, rhonchi or wheezes noted. No increased work of breathing, no retractions or nasal flaring. Abdomen/GI: Soft, non-tender, no distension. 12:49 MS/ Extremity: Pulses equal, no cyanosis. Neurovascular intact. Full, normal range of motion. Neuro: Awake and alert, GCS 15, oriented to person, place, time, and situation. Motor strength 5/5 in all extremities. Sensory grossly intact. 12:49 Constitutional: The patient appears alert, awake, anxious, in obvious pain, crying 12:49 Cardiovascular: Rate: tachycardic, Rhythm: regular, Pulses: no pulse deficits are appreciated, Heart sounds: normal, 12:49 Skin: ulcer noted to base of right third toe with swelling, purulent drainage, and surrounding cellulitis. Vital Signs: 12:05 BP 141 / 85; Pulse 114; Resp 16; Temp 99.3(TE); Pulse Ox 100% on R/A; Weight 92.53 kg; hb Height 5 ft. 8 in. ; Pain 10/10; 12:15 BP 150 / 99; Pulse 112; Resp 20; Pulse Ox 100% ; me1 13:00 BP 132 / 83; Pulse 106; Resp 18; Pulse Ox 99% on R/A; me1 13:00 BP 134 / 86; Pulse 102; Resp 18; Pulse Ox 100% on R/A; me1 12:05 Body Mass Index 31.02 (92.53 kg, 172.72 cm) hb 12:05 Pain Scale: Adult hb MDM: 11:50 Patient medically screened. sb4 12:49 Differential diagnosis: cellulitis, abscess, diabetic foot ulcer, osteomyelitis. sb4 13:48 Data reviewed: vital signs, nurses notes, lab test result(s), radiologic studies, I sb4 have discussed the patient's presentation/case with the attending Emergency Department Physician; and as a result, I will admit patient. Consideration of Admission/Observation Patient was admitted/placed on observation. Management of patient was discussed with the following: Hospitalist: Saeed GALLO and Dr. Hidalgo, accept patient. Electrician Underground: general surgery, Dr. Velazco, will take patient to OR. Care significantly affected by the following chronic conditions: Diabetes, Hypertension. Counseling: I had a detailed discussion with the patient and/or guardian regarding the historical points, exam findings, and any diagnostic results supporting the discharge/admit diagnosis, the presence of at least one elevated blood pressure reading (>120/80) during this emergency department visit, lab results, radiology results, the need for further work-up and treatment in the hospital. 10/11 12:09 Order name: Blood Culture Adult (2) sb4 10/11 12:09 Order name: CBC with Diff; Complete Time: 13:10 sb4 10/11 12:09 Order name: CMP; Complete Time: 13:54 sb4 10/11 12:09 Order name: Lactate w/ 2H reflex if indic.; Complete Time: 13:28 4 10/11 12:09 Order name: Protime (+inr); Complete Time: 13:41 4 10/11 12:09 Order name: Ptt, Activated; Complete Time: 13:41 4 10/11 12:28 Order name: CRP [facility] 10/11 12:28 Order name: Procalcitonin; Complete Time: 14:07 sb4 10/11 13:07 Order name: Wound Culture [facility] 10/11 13:55 Order name: Test, Urine [facility] 10/11 12:12 Order name: Foot Right Wo Con; Complete Time: 12:56 EDMI 10/11 14:02 Order name: Lower Extremity Arterial Bilat [facility] 10/11 14:13 Order name: CONS Physician Consult [facility] 10/11 12:09 Order name: Accucheck [facility] 10/11 12:09 Order name: Cardiac monitoring [facility] 10/11 12:09 Order name: IV Saline Lock - Large Bore; Complete Time: 13:24 4 10/11 12:09 Order name: Labs collected and sent; Complete Time: 13:24 [facility] 10/11 12:09 Order name: O2 Per Protocol [facility] 10/11 12:09 Order name: O2 Sat Monitoring [facility] 10/11 12:09 Order name: Vital Signs [facility] 10/11 13:05 Order name: NPO; Complete Time: 14:04 [facility] 10/11 13:09 Order name: Labs - recollect needed: recollect green and blue top; Complete Time: 13:24 bd Administered Medications: 13:12 Drug: morphine IVP or IV 4 mg IVP once over 4 mins Route: IVP; Infused Over: 4 mins; me1 Site: left forearm; 14:27 Follow up: Response: No adverse reaction me1 13:12 Drug: Ondansetron IVP 4 mg IVP once; over 2 minutes Route: IVP; Site: left forearm; me1 14:27 Follow up: Response: No adverse reaction me1 Disposition: 15:00 Co-signature as Attending Physician, Mateus Hidalgo MD I reviewed the patient's care rn provided by the Advanced Practice Provider and agree with the diagnosis and treatment plan. Disposition Summary: 10/11/23 13:47 Hospitalization Ordered Notes: Hospitalization Status: Inpatient Admission sb4 Provider: Bo Hidalgo Location: Telemetry/MedSurg (Inpatient) sb4 Condition: Fair sb4 Problem: new sb4 Symptoms: are unchanged sb4 Bed/Room Type: Standard sb4 Room Assignment: sb4 Diagnosis - osteomyelitis right foot sb4 Forms: - Medication Reconciliation Form sb4 - SBAR form sb4 - Leadership Thank You Letter sb4 Signatures: Dispatcher [employer] EDManasa Duarte Roman, MD MD rn Mitali Mulligan RN RN hb Brown, Sophia, PA-C PA-C sb4 Marie Goyal RN RN me1 Corrections: (The following items were deleted from the chart) 13:59 12:47 patient states first noticed an ulcer on her right third toe 4 days ago. she came sb4 here and had xrays and blood work done. she was given IV vanc and zosyn and discharged with PO clindamycin which she states she has been taking as prescribed. she states it has become more painful, red, swollen, with a moderate amount of drainage. she does not monitor her blood sugar but reports compliance with her medications. sb4
[2023-10-11 13:54] LABS: Albumin 2.3 g/dL (3.4-5.0); Bilirubin Total 0.5 mg/dL (0.2-1.0); Potassium 3.9 mEq/L (3.5-5.1); Protein, Total 7.9 g/dL (6.4-8.2)
--- NOTE | 2023-10-11 14:10 | P.CNS ---
Date of Consult: 10/11/23 Reason for consult: Right foot infection History of present illness: Patient is a 42-year-old female who presents to the emergency room with approximately 1 week history of right foot infection associated with the plantar ulcer at the base of the third toe. Patient went to [facility] and they treated her with antibiotics and discharged from the emergency room. She came to our emergency room last weekend and was again worked up which was negative and discharged on oral antibiotics with clindamycin. Over the last 4 days patient's foot has become more red and swollen with purulent discharge and increasing pain and fever. Patient had workup in our emergency room which showed leukocytosis and gas in the foot with osteomyelitis of the third toe. Patient denies any sore throat runny nose cough headaches dizziness chest pain fever or chills currently. Patient is a diabetic. Review of systems: Otherwise unremarkable Past medical history: Diabetes and hypertension Past surgical history: , gallbladder surgery, hernia surgery, left ovary removal and bilateral salpingectomy Allergies: None Social history: Patient does not smoke or drink Family history: Hypertension diabetes and heart disease Vital signs: Tachycardic, 99.3 Physical exam: Awake, alert and oriented x 3 Head and neck exam: No masses Chest: Clear Heart: S1-S2 Abdomen: Soft Extremity: Diminished dorsalis pedis and posterior tibial pulses on the right side. Significant edema and erythema in the forefoot extending to the ankle and beginning at the base of the third toe. Third toe as opening with pus coming out of it both on the top and the bottom. There is an ulcer at the plantar aspect of the foot which has pus coming out as well. There is fluctuance and foul odor present. Neuro: Nonfocal Diagnostic data: White count is 18,000, procalcitonin is 0.22 patient, lactic acid is normal CT of the right foot shows osteomyelitis third toe with soft tissue gas. Assessment: Right foot diabetic infection with osteomyelitis and soft tissue infection secondary to a gas-forming organism Plan/recommendation: Admit, n.p.o., IV fluids, IV antibiotics and to the OR for right foot debridement and right third toe transmetatarsal amputation. Patient understands risks, benefits and alternatives and agrees to procedure. CC:
[2023-10-11] MEDS ORDERED: NA CHLORIDE 0.9% 250 ML ONE (14:22)
[2023-10-11] MEDS ORDERED: VANCOMYCIN 1 GM/VIAL ONE (14:22)
[2023-10-11] MEDS ORDERED: MIDAZOLAM HCL 2 MG/2 ML INJ ONE (14:23)
[2023-10-11] MEDS ORDERED: propofoL 200 MG/20 ML VIAL IV ONE ×2 (14:23→15:17)
[2023-10-11] MEDS ORDERED: NA CHLORIDE 0.9% 100 ML ONE (14:23)
[2023-10-11] MEDS ORDERED: CEFEPIME 1 GM/VIAL ONE (14:23)
[2023-10-11] MEDS ORDERED: FENTANYL CITR 100 MCG/2 ML ONE (14:23)
[2023-10-11] MEDS ORDERED: LIDOCAINE 2% MPF 5 ML VIAL ONE (14:24)
[2023-10-11 14:28] LABS: Specific Gravity 1.024 (1.005-1.030)
[2023-10-11] MEDS ORDERED: ONDANSETRON 4 MG/2 ML VIAL IV PRN (14:29)
[2023-10-11] MEDS ORDERED: HYDROCODONE/APAP 5/325 MG TAB PO PRN (14:29)
[2023-10-11] MEDS ORDERED: MORPHINE 2 MG/ML SYR IV PRN (14:29)
[2023-10-11] MEDS ORDERED: CEFEPIME 1 GM in NA CHLORIDE 0.9% 100 ML IV ONE (14:30)
--- NOTE | 2023-10-11 14:38 | P.HP ---
Certification for Inpatient Patient admitted to: Inpatient With expected LOS: >2 Midnights Patient will require the following post-hospital care: None Practitioner: I am a practitioner with admitting privileges, knowledge of patient current condition, hospital course, and medical plan of care. Services: Services provided to patient in accordance with Admission requirements found in Title 42 Section 412.3 of the Code of Federal Regulations Patient History Date of Service: 10/11/23 Reason for admission: Osteomyelitis, sepsis History of Present Illness: 42-year-old female with history of dnf-meggrno-wqxouensv diabetes, hypertension presents emergency department with concern for infection of her right foot. She reports she developed an ulcer to the plantar aspect of her right foot approximately 2 weeks ago and was initially given a course of 5 days of amoxicillin which she completed, subsequently given clindamycin which she has been taking last dose yesterday. She had worsening pain, swelling and drainage of the right foot if that reason came to the emergency department today. She was evaluated in the emergency department her labs are significant for leukocytosis white blood cell count 18 hemoglobin 10.8 hematocrit 31.8 sodium 138 glucose 194 CRP [address] of the right foot was performed which revealed osseous lucencies along the third digit proximal phalanx and head of the third metatarsal concerning for osteomyelitis, soft tissue ulcer along the sole of the foot opposite the head of the third metatarsal with soft tissue gas tracking along both plantar and dorsal aspect of the forefoot to midfoot along the axis of the third metatarsal, and also into the third digit soft tissue's. General surgery saw patient in the emergency department, plans to take patient to the OR for amputation of the third toe right foot. Allergies No Known Drug Allergies Allergy (Verified 06/08/20 10:51) Unknown Home Medications: Glipizide [Glipizide ER] 10 mg PO BID 05/28/19 Metformin HCl [Metformin ER Osmotic] 1,000 mg PO BID 05/28/19 lisinopriL [Lisinopril] 1 tab PO DAILY 04/10/20 Aspirin [Aspirin EC 325 MG] 325 mg PO DAILY 30 Days #30 tablet. 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 [employer] - Family History Mother -: Hypertension, Diabetes, Other (see notes) Notes: CHF Father -: Hypertension, Other (see notes) Notes: CHF - Social History Smoking Status: Never smoker Alcohol use: Yes CD- Drugs: No Caffeine use: Yes Place of Residence: Home Review of Systems 10-point ROS is otherwise unremarkable General: Fever, Chills Integumentary: Rash, As per HPI Physical Examination - Physical Exam General: Alert, In no apparent distress, Oriented x3 HEENT: Atraumatic Neck: Supple Respiratory: Clear to auscultation bilaterally, Normal air movement Cardiovascular: Regular rate/rhythm, Normal S1 S2 Gastrointestinal: Normal bowel sounds Musculoskeletal: Erythema, Tenderness, Warmth Integumentary: No rashes, Tenderness/swelling, Erythema, Warmth, Diabetic ulcer (Plantar aspect right foot, right 3rd toe) Neurological: Normal speech - Studies Laboratory Data (last 24 hrs) 10/11/23 10/11/23 10/11/23 13:20 13:20 12:55 WBC 18.00 H Hgb 10.8 L Hct 31.8 L Plt Count 308 PT 13.8 H INR 1.25 APTT 28.2 Sodium 130 L Potassium 3.9 BUN 11 Creatinine 0.81 Glucose 194 H Total Bilirubin 0.5 AST 6 L ALT 15 Alkaline Phosphatase 156 H Assessment and Plan - Plan Assessment: Sepsis secondary to right third toe osteomyelitis Diabetes mellitus type 0jpw-fmaohhw-dxapwgace with hyperglycemia Hypertension Plan: Sepsis secondary to right third toe osteomyelitis Going to the OR now for amputation Continue broad-spectrum antibiotics Follow blood/wound cultures As needed pain medications Diabetes mellitus type 9sdr-ysnnocv-esbjommpr with hyperglycemia ACHS Accu-Chek, sliding scale insulin, A1c in the morning On glipizide at home Previously on long-acting insulin 5 units daily, 10 units at night Hypertension Continue home medications DVT PPX: SCD Code status: Full Discharge Plan: Home Plan to discharge in: 72 Hours - Advance Directives Does patient have a Living Will: No Does patient have a Durable POA for Healthcare: No - Code Status/Comfort Care Code Status Assessed: Yes (Full code) Critical Care: No Time Spent Managing Pts Care (In Minutes): 55
[2023-10-11] MEDS ORDERED: NA CHLORIDE 0.9% 1,000 ML ONE (14:39)
[2023-10-11] MEDS ORDERED: COLLAGENASE 30 GM OINTMENT TOP ONE (14:45)
[2023-10-11] MEDS ORDERED: BUPIVACAINE 0.5% PF 10 ML VIAL ONE (14:46)
[2023-10-11] MEDS ORDERED: VANCOMYCIN 1.25 GM in NA CHLORIDE 0.9% 250 ML IVPB ONE (15:00)
[2023-10-11] MEDS: NA CHLORIDE 0.9% 1,000 ML IV SCH ×2 (15:00→23:15)
--- NOTE | 2023-10-11 15:38 | P.OP ---
Date of Service: 10/11/23 Preop diagnosis: Right foot diabetic infection with osteomyelitis of the right third toe with the presence of gas-forming organism Postop diagnosis: Same Procedure performed: Incision, drainage and debridement of right foot abscess, right third toe transmetatarsal amputation Surgeon: Hong Velazco MD Curtain Mender: Yamilka LI Estimated blood loss: Minimal Specimen: Right third toe, bone cultures and pus for culture and sensitivity Findings: As above Anesthesia: General Complications: None Drains: None Fluids and blood products: Nonapplicable Disposition: Recovery room Operative note: Patient brought to the OR and placed in supine position. General anesthesia begun. Patient prepped and draped in the usual sterile fashion. 15 blade used to make ellipse of skin from the midfoot and of V-shaped towards the base of the third toe on the right foot and extending on the plantar aspect to include the nonhealing ulcer. Subcutaneous tissue divided bleeding controlled with cautery. Large amount of pus and necrotic tissue encountered in the midfoot and the plantar aspect of the foot. Cultures done. Third toe removed with bone cutter. Proximal phalanx bone cultures performed. The rough edges debrided with rongeur on the third metatarsal bone. Rasp used to smooth out the rough edges. Wound irrigated and bleeding controlled with cautery. Wet-to-dry normal saline dressing change applied. Sterile dressing applied and patient awakened. Patient taken to recovery room in good general condition. CC:
[2023-10-11] MEDS: INSULIN REGULAR (HUMAN) 100 UNIT/ML SQ SCH ×2 (16:30→21:00)
[2023-10-11] MEDS: HYDROCODONE/APAP 7.5/325 MG TAB PO PRN (18:20)
[2023-10-11] MEDS: ACETAMINOPHEN 325 MG TABLET PO PRN (20:34)
[2023-10-11] MEDS: CEFEPIME 2 GM in NA CHLORIDE 0.9% 100 ML IV SCH (20:35)
--- NOTE | 2023-10-11 21:46 | RAD REPORT ---
EXAM DESCRIPTION: US - Lower Extremity Arterial Bilat - 10/11/2023 9:28 pm CLINICAL HISTORY: wound Leg pain, claudication COMPARISON: <Comparisons> TECHNIQUE: Bilateral lower extremity arterial Doppler examination was performed with waveform tracin g and velocity measurements. FINDINGS: Both lower extremity arterial systems demonstrate largely monophasic waveforms. This is probably rela sukhjinder to an inflow stenosis. No complete occlusion seen. IMPRESSION: Monophasic waveforms are seen in both lower extremity arterial system likely related to an inflow stenosis. No evidence complete occlusion.
[2023-10-12] MEDS: VANCOMYCIN 1.75 GM in NA CHLORIDE 0.9% 500 ML IVPB SCH ×2 (01:33→13:52)
[2023-10-12 03:35] LABS: Absolute Lymphocytes (CBC) 2.5 K/uL (0.7-4.9); Hematocrit 25.1 % (36.0-45.0); Lymphocytes % 18.6 % (15.3-44.8); MCV 85.7 fL (80-100); MPV 8.7 fL (7.6-11.3); Platelets 270 thou/uL (152-406); RBC Red Blood Cell Count 2.93 M/uL (3.86-4.86)
[2023-10-12 04:12] LABS: Potassium 3.8 mEq/L (3.5-5.1)
[2023-10-12] MEDS ORDERED: D50W 25 GM/50 ML SYRINGE IV PRN (06:25)
[2023-10-12] MEDS ORDERED: GLUCAGON 1 MG/VIAL IM PRN (06:25)
[2023-10-12] MEDS ORDERED: D10W 125 ML IV PRN (06:52)
[2023-10-12] MEDS: CEFEPIME 2 GM in NA CHLORIDE 0.9% 100 ML IV SCH ×2 (08:01→20:38)
[2023-10-12] MEDS: INSULIN REGULAR (HUMAN) 100 UNIT/ML SQ SCH ×4 (08:02→20:52)
[2023-10-12] MEDS: INSULIN 70/30 100 UNITS/ML SQ SCH ×2 (08:02→17:12)
[2023-10-12] MEDS: NA CHLORIDE 0.9% 1,000 ML IV SCH ×2 (08:06→20:41)
[2023-10-12] MEDS: HYDROCODONE/APAP 7.5/325 MG TAB PO PRN ×2 (08:06→13:52)
[2023-10-12] MEDS ORDERED: POTASSIUM CL SA 10 MEQ TAB PO ONE (09:00)
--- NOTE | 2023-10-12 09:36 | P.PN ---
Date of Service: 10/12/23 Subjective: Low-grade fever overnight Pain tolerable at this time No other acute events overnight ROS: 10 point ROS as noted above, otherwise negative Physical exam GEN: Alert, oriented, NAD HEENT: Normal conjunctiva, sclera anicteric CV: Regular rate and rhythm, no edema Pulm: Nonlabored respirations on room air ABD: Soft, nontender, nondistended MSK: No joint tenderness Integumentary: Dressing in place to right foot CDI Neuro: Normal speech, normal affect Vitals reviewed Problem List Sepsis secondary to right third toe osteomyelitis Diabetes mellitus type 9aex-lnrcrgs-mtiyhpyar with hyperglycemia Hypertension Plan: Sepsis secondary to right third toe osteomyelitis S/P Incision, drainage and debridement of right foot abscess, right third toe transmetatarsal amputation 10/11 Tmax 100.4 09/21 overnight White blood cell count improving Continue daily wet-to-dry saline dressing changes Continue broad-spectrum antibiotics Follow blood/wound cultures As needed pain medications Diabetes mellitus type 6zku-ilqmcaq-zafegqpww with hyperglycemia ACHS Accu-Chek, sliding scale insulin, A1c 11.6 On glipizide at home, added 70/30 insulin 10 units twice daily Uses [facility], states she gets discounts on certain kinds of insulin Recommend close follow-up with PCP for initiation of affordable insulin Previously on long-acting insulin 5 units daily, 10 units at night Hypertension Continue home medications VTE: Lovenox Code: Full Dispo: 2 to 3 days pending cultures, wound dressing instructions possible home health Time Spent Managing Pts Care (In Minutes): 35 <Saeed Luo - Last Filed: 10/12/23 09:34> Patient seen and examined on rounds this morning. Plan of care reviewed with BUSINESS ANALYST MANAGER Puja and agree as noted above with following additions/corrections: patient doing ok post-op labs improving dressing c/d/i f/u cultures insulin 70/30 monitor glc levels A1c> 11 arterial dopplers concerning for inflow issue will discuss further with general surgery will need further eval in near future <Bo Hidalgo - Last Filed: 10/12/23 21:35>
--- NOTE | 2023-10-12 10:37 | PN ---
Date of Progress Note: 10/12/2023 Subjective: Patient is awake, alert, feels much better. Pain is much better. Objective: Vital Signs: Stable. She is currently afebrile. Skin: Dressing is clean with minimal serosanguineous drainage on it. No active pus or blood seen. Laboratory Data: Reviewed. White count is down to 13.7 and left shift is normal now. INR is 1.25. Chemistry reviewed. Hemoglobin A1c is 11.6. Cultures are pending. Assessment: Status post incision, drainage, and debridement of right foot diabetic infection, right third toe transmetatarsal amputation. Recommendations: Continue IV antibiotics as ordered. Check cultures and adjust antibiotics accordin gly. Wound care as ordered. Medical management for diabetes. Patient is clinically slowly matthew PERALTA/MODEstiven Voice ID: [id number] Report ID: [id number]
[2023-10-12] MEDS ORDERED: NA CHLORIDE 0.9% 0 ML ONE (20:30)
[2023-10-12] MEDS: ACETAMINOPHEN 325 MG TABLET PO PRN (20:53)
[2023-10-13] MEDS: HYDROMORPHONE HCL 1 MG/ML INJ IV PRN ×3 (00:26→20:21)
[2023-10-13] MEDS: VANCOMYCIN 1.75 GM in NA CHLORIDE 0.9% 500 ML IVPB SCH ×2 (02:59→14:22)
[2023-10-13] MEDS: HYDROCODONE/APAP 7.5/325 MG TAB PO PRN (06:41)
[2023-10-13] MEDS: INSULIN REGULAR (HUMAN) 100 UNIT/ML SQ SCH ×4 (07:30→20:18)
[2023-10-13] MEDS ORDERED: POLYETHYL GLY 3350 17 GM/DOSE PO ONE (09:38)
--- NOTE | 2023-10-13 09:43 | P.PN ---
Date of Service: 10/13/23 Subjective: Low-grade fever overnight 10/12 Pain tolerable at this time No other acute events overnight No BM since sx ROS: 10 point ROS as noted above, otherwise negative Physical exam GEN: Alert, oriented, NAD HEENT: Normal conjunctiva, sclera anicteric CV: Regular rate and rhythm, no edema Pulm: Nonlabored respirations on room air ABD: Soft, nontender, nondistended MSK: No joint tenderness Integumentary: Dressing in place to right foot CDI Neuro: Normal speech, normal affect Vitals reviewed Problem List Sepsis secondary to right third toe osteomyelitis S/P Incision, drainage and debridement of right foot abscess, right third toe transmetatarsal amputation 10/11 Diabetes mellitus type 1rqg-rnkpnqs-guownawdm with hyperglycemia Hypertension Plan: Sepsis secondary to right third toe osteomyelitis S/P Incision, drainage and debridement of right foot abscess, right third toe transmetatarsal amputation 10/11 Tmax 100.6 10/12 overnight White blood cell count improving Continue daily wet-to-dry saline dressing changes Continue broad-spectrum antibiotics Blood cultures with NGTD Wound cultures prelim with gram negative rods As needed pain medications Diabetes mellitus type 6xjz-vsenmuv-csrnnrtsf with hyperglycemia ACHS Accu-Chek, sliding scale insulin, A1c 11.6 On glipizide at home, added 70/30 insulin 10 units twice daily Uses [facility], states she gets discounts on certain kinds of insulin Recommend close follow-up with PCP for initiation of affordable insulin Previously on long-acting insulin 5 units daily, 10 units at night Hypertension Continue home medications VTE: Lovenox Code: Full Dispo: 1 to 2 days pending cultures, states family comfortable with dressing changes at home Time Spent Managing Pts Care (In Minutes): 35
--- NOTE | 2023-10-13 10:12 | PN ---
Date of Progress Note: 10/13/2023 Subjective: The patient is awake, alert. No complaint. Vitals are stable. Afebrile. Her CBC is p ending. Microbiology shows gram-negative rods. Sensitivity has not been determined yet. Dressing i s clean, dry, intact. Assessment: Status post right foot incision and drainage of diabetic infection and right third toe t ransmetatarsal amputation. Recommendations: Continue antibiotics and wound care as ordered. Await cultures and adjust antibiot ics accordingly. Her Doppler showed monophasic flow. Therefore, we will get a CT angiogram while wilver kelley is in the hospital to see if she has any disease that needs urgent surgical intervention. Plan of care discussed with Dr. Hidalgo. /MODL Voice ID: [id number] Report ID: [id number]
[2023-10-13] MEDS: CEFEPIME 2 GM in NA CHLORIDE 0.9% 100 ML IV SCH ×2 (10:30→20:11)
[2023-10-13] MEDS: INSULIN 70/30 100 UNITS/ML SQ SCH ×2 (10:31→17:20)
[2023-10-13 10:47] LABS: Absolute Lymphocytes (CBC) 1.9 K/uL (0.7-4.9); Hematocrit 28.2 % (36.0-45.0); Lymphocytes % 11.4 % (15.3-44.8); MCV 85.2 fL (80-100); MPV 8.8 fL (7.6-11.3); Platelets 352 thou/uL (152-406); RBC Red Blood Cell Count 3.31 M/uL (3.86-4.86)
[2023-10-13 11:06] LABS: Potassium 3.9 mEq/L (3.5-5.1)
[2023-10-13] MEDS: ACETAMINOPHEN 325 MG TABLET PO PRN (11:45)
[2023-10-13 12:00] LABS: Blood Morphology Comment NOT SEEN (NOT SEEN); Platelet Estimate ADEQ; White Blood Cell Scan OK (OK)
--- NOTE | 2023-10-13 18:27 | RAD REPORT ---
EXAM DESCRIPTION: CT - CT ANGIO ABD/PELVIS W CONTRAST - 10/13/2023 6:03 pm CLINICAL HISTORY: Right foot ulcer. Abnormal radiologic exam COMPARISON: 10/11/2023 arterial ultrasound TECHNIQUE: Dynamically enhanced 3 mm thick images of the abdomen, and upper pelvis were obtained dur ing administration of approximately 100mL Isovue 370 IV contrast. MIP reconstruction performed. All CT scans are performed using dose optimization technique as appropriate and may include automated exposure control or mA/KV adjustment according to patient size. FINDINGS: The distal descending thoracic aorta, abdominal aorta, right and left common iliac, culinary intern al iliac, external iliac and common femoral arteries are normal caliber. No plaque visualized. No aneurysm. No dissection. SMA, HOLLIE, celiac and renal arteries unremarkable . 2 main right renal arteries 5.7 centimeter left renal cyst. Fibroid uterus IMPRESSION: Unremarkable evaluation of the arteries
[2023-10-14] MEDS: VANCOMYCIN 1.75 GM in NA CHLORIDE 0.9% 500 ML IVPB SCH ×2 (01:30→14:17)
[2023-10-14] MEDS: ACETAMINOPHEN 325 MG TABLET PO PRN ×3 (03:40→23:18)
[2023-10-14 04:14] LABS: Absolute Lymphocytes (CBC) 1.9 K/uL (0.7-4.9); Hematocrit 26.6 % (36.0-45.0); Lymphocytes % 10.1 % (15.3-44.8); MCV 84.9 fL (80-100); MPV 8.3 fL (7.6-11.3); Platelets 398 thou/uL (152-406); RBC Red Blood Cell Count 3.13 M/uL (3.86-4.86)
[2023-10-14 04:27] LABS: Potassium 3.8 mEq/L (3.5-5.1)
[2023-10-14] MEDS: INSULIN REGULAR (HUMAN) 100 UNIT/ML SQ SCH ×4 (07:30→20:11)
[2023-10-14] MEDS: CEFEPIME 2 GM in NA CHLORIDE 0.9% 100 ML IV SCH ×2 (07:55→20:10)
[2023-10-14] MEDS: HYDROCODONE/APAP 7.5/325 MG TAB PO PRN ×3 (07:56→22:07)
[2023-10-14] MEDS: INSULIN 70/30 100 UNITS/ML SQ SCH ×2 (07:56→15:49)
--- NOTE | 2023-10-14 08:09 | P.PN ---
Date of Service: 10/14/23 Subjective: Low-grade fevers still 99 Pain tolerable at this time No other acute events overnight No BM since sx still ROS: 10 point ROS as noted above, otherwise negative Physical exam GEN: Alert, oriented, NAD HEENT: Normal conjunctiva, sclera anicteric CV: Regular rate and rhythm, no edema Pulm: Nonlabored respirations on room air ABD: Soft, nontender, nondistended MSK: No joint tenderness Integumentary: Dressing in place to right foot CDI Neuro: Normal speech, normal affect Vitals reviewed Problem List Sepsis secondary to right third toe osteomyelitis S/P Incision, drainage and debridement of right foot abscess, right third toe transmetatarsal amputation 10/11 Diabetes mellitus type 4lex-dboafbf-dtylugkzw with hyperglycemia Hypertension Plan: Sepsis secondary to right third toe osteomyelitis S/P Incision, drainage and debridement of right foot abscess, right third toe transmetatarsal amputation 10/11 Tmax 99.1 10/13 overnight White blood cell count Elevated today at 18 Discuss elevated WBC with surgery, will eval wound today with dressing change Continue daily wet-to-dry saline dressing changes Continue broad-spectrum antibiotics Blood cultures with NGTD Wound cultures with Enterobacter cloacae-sensitive to cefepime As needed pain medications Diabetes mellitus type 5mwn-eykzwlw-emokveeyn with hyperglycemia ACHS Accu-Chek, sliding scale insulin, A1c 11.6 On glipizide at home, added 70/30 insulin 10 units twice daily Uses [facility], states she gets discounts on certain kinds of insulin Recommend close follow-up with PCP for initiation of affordable insulin Previously on long-acting insulin 5 units daily, 10 units at night Hypertension Continue home medications VTE: Lovenox Code: Full Dispo: 2 to 3 days pending cultures, states family comfortable with dressing changes at home Time Spent Managing Pts Care (In Minutes): 35 <Saeed Luo - Last Filed: 10/14/23 08:07> Goal evaluated today Purulent drainage N.p.o. after midnight, further debridement planned for tomorrow <Bo Hidalgo - Last Filed: 10/14/23 16:06>
[2023-10-14] MEDS ORDERED: POLYETHYL GLY 3350 17 GM/DOSE PO ONE (09:00)
[2023-10-14] MEDS ORDERED: POTASSIUM CL SA 10 MEQ TAB PO ONE (09:00)
[2023-10-14] MEDS: HYDROMORPHONE HCL 1 MG/ML INJ IV PRN ×2 (09:47→13:45)
--- NOTE | 2023-10-14 10:31 | PN ---
Date of Progress Note: 10/14/2023 Subjective: Patient is awake, alert. Pain is better. Objective: Vital Signs: Stable. Temperature was 99.1. Wounds: Examination of the wound reveals little bit of pus from the bottom of the incision on the pl ivonne aspect and little bit on the left side of the dorsum of the foot. Patient needs more debrideme nt. Assessment: Infected wound, right foot secondary to a diabetic foot infection. Recommendations: We will take the patient back to the OR tomorrow for more debridement to try to exc ise any more infected tissue that is present. Patient understands risks, benefits, and alternatives and agrees to procedure. /MODL Voice ID: [id number] Report ID: [id number]
[2023-10-15] MEDS: VANCOMYCIN 1.75 GM in NA CHLORIDE 0.9% 500 ML IVPB SCH ×2 (01:17→14:32)
[2023-10-15 02:39] LABS: Hematocrit 26.2 % (36.0-45.0); MCV 85.1 fL (80-100); MPV 8.2 fL (7.6-11.3); Platelets 421 thou/uL (152-406); RBC Red Blood Cell Count 3.08 M/uL (3.86-4.86)
[2023-10-15 03:07] LABS: Potassium 4.1 mEq/L (3.5-5.1)
[2023-10-15] MEDS: HYDROMORPHONE HCL 1 MG/ML INJ IV PRN (07:56)
[2023-10-15] MEDS: INSULIN 70/30 100 UNITS/ML SQ SCH ×2 (08:15→17:50)
[2023-10-15] MEDS: INSULIN REGULAR (HUMAN) 100 UNIT/ML SQ SCH ×4 (08:16→20:31)
[2023-10-15] MEDS: CEFEPIME 2 GM in NA CHLORIDE 0.9% 100 ML IV SCH ×2 (08:16→20:31)
[2023-10-15] MEDS ORDERED: BUPIVACAINE 0.5% PF 10 ML VIAL ONE (08:32)
[2023-10-15] MEDS ORDERED: MIDAZOLAM HCL 2 MG/2 ML INJ ONE (08:39)
[2023-10-15] MEDS ORDERED: propofoL 200 MG/20 ML VIAL IV ONE (08:39)
[2023-10-15] MEDS ORDERED: LIDOCAINE 1% MPF 5 ML VIAL ONE (08:39)
[2023-10-15] MEDS ORDERED: ONDANSETRON 4 MG/2 ML VIAL ONE (08:39)
[2023-10-15] MEDS ORDERED: FENTANYL CITR 100 MCG/2 ML ONE (08:39)
[2023-10-15] MEDS ORDERED: dexAMETHasone 4 MG/ML VIAL ONE (08:40)
[2023-10-15] MEDS ORDERED: KETOROLAC 30 MG/ML INJ ONE (08:40)
[2023-10-15] MEDS: NA CHLORIDE 0.9% 1,000 ML ONE (08:43)
[2023-10-15] MEDS ORDERED: Phenylephrine HCl 10 MG/ML 1 ML VIAL ONE (09:41)
--- NOTE | 2023-10-15 09:42 | P.OP ---
Date of Service: 10/15/23 Preop diagnosis: Right foot diabetic infection with osteomyelitis of the right third toe with the presence of gas-forming organism Postop diagnosis: Same Procedure performed: Incision, drainage and debridement extensively right foot infection to subcutaneous tissue and fascia approximately 20 x 10 cm with pulse irrigation Surgeon: Hong Velazco MD Beef Breaker: Yamilka LI Estimated blood loss: Minimal Specimen: Pus for culture and sensitivity Findings: As above Anesthesia: General Complications: None Drains: None Fluids and blood products: Nonapplicable Disposition: Recovery room Operative note: Patient brought to the OR and placed in supine position. General anesthesia begun. Patient prepped and draped in the usual sterile fashion. Patient had pus oozing from the sides of the wound on the plantar aspect. There was a pocket of pus below the previous incision. Sharp dissection around this necrotizing infection was performed down through the deep subcutaneous tissue and fascia. All necrotic tissue was debrided with cautery and scissors. Pus was evacuated and cultures were done. On the dorsum of the foot more debridement occurred down through the deep subcutaneous tissue as there was little bit of pus oozing from the proximal part of the incision. After all the debridement was done and bleeding controlled cautery, pulse irrigation with Betadine and saline was performed. Following which normal saline was used as pulse irrigation. All loose tissue was debrided as well as necrotic tissue. Bleeding was controlled with cautery. Medihoney wet-to-dry normal saline dressing change applied. Sterile dressing applied and patient awakened. Patient taken to recovery room in good general condition. CC:
[2023-10-15] MEDS ORDERED: COLLAGENASE 30 GM OINTMENT TOP ONE (09:45)
--- NOTE | 2023-10-15 12:53 | P.PN ---
Date of Service: 10/15/23 Subjective: Chills/rigors this morning went to surgery today at 0900 No other acute events overnight No BM since first sx still ROS: 10 point ROS as noted above, otherwise negative Physical exam GEN: Alert, oriented, NAD HEENT: Normal conjunctiva, sclera anicteric CV: Regular rate and rhythm, no edema Pulm: Nonlabored respirations on room air ABD: Soft, nontender, nondistended MSK: No joint tenderness Integumentary: Dressing in place to right foot CDI Neuro: Normal speech, normal affect Vitals reviewed Problem List Sepsis secondary to right third toe osteomyelitis S/P Incision, drainage and debridement of right foot abscess, right third toe transmetatarsal amputation 10/11 Diabetes mellitus type 7mup-tyllqgd-pgkwiwawk with hyperglycemia Hypertension Plan: Sepsis secondary to right third toe osteomyelitis S/P Incision, drainage and lizabeth ridement of right foot abscess, right third toe transmetatarsal amputation 10/11 persistent chills/fevers White blood cell count Elevated today at 19 Went to OR this morning for further incision/drainage/debridement again 10/15 Dressing changes per surgery Continue broad-spectrum antibiotics Blood cultures with NGTD Wound cultures with Enterobacter cloacae-sensitive to cefepime As needed pain medications Diabetes mellitus type 3csn-ksxybeh-ajrzmxjsy with hyperglycemia ACHS Accu-Chek, sliding scale insulin, A1c 11.6 On glipizide at home, added 70/30 insulin 10 units twice daily Uses [facility], states she gets discounts on certain kinds of insulin Recommend close follow-up with PCP for initiation of affordable insulin Previously on long-acting insulin 5 units daily, 10 units at night Hypertension Continue home medications VTE: Lovenox Code: Full Dispo: 2 to 3 days pending cultures, states family comfortable with dressing changes at home Time Spent Managing Pts Care (In Minutes): 35
[2023-10-16] MEDS: VANCOMYCIN 1.75 GM in NA CHLORIDE 0.9% 500 ML IVPB SCH (01:54)
[2023-10-16 06:32] LABS: Hematocrit 26.9 % (36.0-45.0); MCV 86.2 fL (80-100); MPV 8.3 fL (7.6-11.3); Platelets 570 thou/uL (152-406); RBC Red Blood Cell Count 3.12 M/uL (3.86-4.86)
[2023-10-16 06:50] LABS: Potassium 3.8 mEq/L (3.5-5.1)
[2023-10-16] MEDS: INSULIN REGULAR (HUMAN) 100 UNIT/ML SQ SCH ×4 (07:30→20:38)
[2023-10-16] MEDS: INSULIN 70/30 100 UNITS/ML SQ SCH ×2 (08:34→17:27)
[2023-10-16] MEDS: CEFEPIME 2 GM in NA CHLORIDE 0.9% 100 ML IV SCH ×2 (08:34→20:37)
[2023-10-16] MEDS ORDERED: POTASSIUM 25 MEQ EFFERV TAB PO ONE (09:00)
[2023-10-16] MEDS: MEDIHONEY 44 ML TOPICAL TUBE TOP SCH (09:00)
--- NOTE | 2023-10-16 11:40 | PN ---
Date of Progress Note: 10/16/2023 Subjective: The patient is awake, alert. The patient states that she has no pain. Objective: Vital Signs: Stable. She is afebrile. White count is 16.9, which is down from 19.5 yes terday. Wounds: Her dressing is clean, dry, and intact. There is no erythema. There is still edema present and wound is without purulence. Serosanguineous drainage is present. Assessment: Status post amputation of the right third metatarsal level and debridement of the right foot with pulse irrigation. Recommendations: Continue IV antibiotics. Both are sensitive to the cultures that we have received. Continue wound care as ordered. Once the white count return towards normal, the patient could prob ably be discharged home on oral antibiotics. We will follow this patient while in the hospital. The patient is to follow up with [facility] upon discharge. Once the infection is u nder control, we may consider a wound VAC for this patient. FABIAN/JENAE Voice ID: [id number] Report ID: [id number]
[2023-10-16] MEDS: VANCOMYCIN 1.5 GM in NA CHLORIDE 0.9% 500 ML IVPB SCH ×2 (12:11→22:51)
[2023-10-16] MEDS: HYDROMORPHONE HCL 1 MG/ML INJ IV PRN ×2 (16:10→20:38)
--- NOTE | 2023-10-16 17:39 | P.PN ---
Date of Service: 10/16/23 Subjective: No complaints this AM She stated she hasn't need pain meds overnight No BM since first sx still Will need to follow cultures closely for antibiotic course ROS: 10 point ROS as noted above, otherwise negative Physical exam GEN: Alert, oriented, NAD HEENT: Normal conjunctiva, sclera anicteric CV: Regular rate and rhythm, no edema Pulm: Nonlabored respirations on room air ABD: Soft, nontender, nondistended MSK: No joint tenderness Integumentary: Dressing in place to right foot CDI, 2 + peripheral pulses, full ROM to right foot Neuro: Normal speech, normal affect Vitals reviewed Problem List Sepsis secondary to right third toe osteomyelitis S/P Incision, drainage and debridement of right foot abscess, right third toe transmetatarsal amputation 10/11 Diabetes mellitus type 6ulh-zlvkbba-fpkkxtyhx with hyperglycemia Hypertension Plan: Sepsis secondary to right third toe osteomyelitis S/P Incision, drainage and debridement of right foot abscess, right third toe transmetatarsal amputation 10/11 persistent chills/fevers White blood cell count 16, down from 19 yesterday Went to OR for further incision/drainage/debridement again 10/15, repeat cultures pending Dressing changes per surgery Continue broad-spectrum antibiotics Blood cultures with NGTD Wound cultures with Enterobacter cloacae-sensitive to cefepime As needed pain medications Diabetes mellitus type 8uop-mcwkjov-acsbrdoek with hyperglycemia ACHS Accu-Chek, sliding scale insulin, A1c 11.6 On glipizide at home, added 70/30 insulin 10 units twice daily Uses [facility], states she gets discounts on certain kinds of insulin Recommend close follow-up with PCP for initiation of affordable insulin Previously on long-acting insulin 5 units daily, 10 units at night Hypertension Continue home medications VTE: Lovenox Code: Full Dispo: 2 to 3 days pending cultures, states family comfortable with dressing changes at home Time Spent Managing Pts Care (In Minutes): 35
[2023-10-16] MEDS: POLYETHYL GLY 3350 17 GM/DOSE PO PRN (20:40)
[2023-10-17] MEDS: HYDROMORPHONE HCL 1 MG/ML INJ IV PRN ×3 (02:38→20:06)
[2023-10-17 04:02] LABS: Hematocrit 28.1 % (36.0-45.0); MCV 85.3 fL (80-100); MPV 7.7 fL (7.6-11.3); Platelets 545 thou/uL (152-406); RBC Red Blood Cell Count 3.29 M/uL (3.86-4.86)
[2023-10-17] MEDS: INSULIN 70/30 100 UNITS/ML SQ SCH ×2 (07:30→16:44)
[2023-10-17] MEDS: INSULIN REGULAR (HUMAN) 100 UNIT/ML SQ SCH ×4 (07:30→21:00)
[2023-10-17] MEDS: MEDIHONEY 44 ML TOPICAL TUBE TOP SCH (09:00)
[2023-10-17] MEDS: CEFEPIME 2 GM in NA CHLORIDE 0.9% 100 ML IV SCH ×2 (09:32→20:07)
[2023-10-17] MEDS: VANCOMYCIN 1.5 GM in NA CHLORIDE 0.9% 500 ML IVPB SCH (11:00)
--- NOTE | 2023-10-17 11:56 | P.PN ---
Date of Service: 10/17/23 Subjective: Sitting up on the side of the bed reports pain to her foot after PT and changing dressing afebrile and WBC trending down Will need to follow cultures closely for antibiotic course and decrease in platelets ROS: 10 point ROS as noted above, otherwise negative Physical exam GEN: Alert, oriented, NAD HEENT: Normal conjunctiva, sclera anicteric CV: Regular rate and rhythm, no edema Pulm: Nonlabored respirations on room air ABD: Soft, nontender, nondistended MSK: No joint tenderness Integumentary: Dressing in place to right foot CDI, 2 + peripheral pulses, swelling to right leg, full ROM to right foot Neuro: Normal speech, normal affect Vitals reviewed Problem List Sepsis secondary to right third toe osteomyelitis S/P Incision, drainage and debridement of right foot abscess, right third toe transmetatarsal amputation 10/11 Diabetes mellitus type 0uku-nvbbjfy-ojzlzyikb with hyperglycemia Hypertension Plan: Sepsis secondary to right third toe osteomyelitis S/P Incision, drainage and debridement of right foot abscess, right third toe transmetatarsal amputation 10/11 White blood cell count 13.8, down from 16 yesterday Went to OR for further incision/drainage/debridement again 10/15, repeat cultures pending Dressing changes per surgery Continue broad-spectrum antibiotics Blood cultures with NGTD Wound cultures with Enterobacter cloacae-sensitive to cefepime As needed pain medications Diabetes mellitus type 0rum-dyjzgaf-siexhvjdq with hyperglycemia ACHS Accu-Chek, sliding scale insulin, A1c 11.6 On glipizide at home, added 70/30 insulin 10 units twice daily Uses [facility] states she gets discounts on certain kinds of insulin Recommend close follow-up with PCP for initiation of affordable insulin Previously on long-acting insulin 5 units daily, 10 units at night Hypertension Continue home medications VTE: Lovenox Code: Full Dispo: 2 to 3 days pending cultures, states family comfortable with dressing changes at home Time Spent Managing Pts Care (In Minutes): 35
--- NOTE | 2023-10-17 14:58 | PN ---
Date of Progress Note: 10/17/2023 Subjective: The patient is awake, alert, feels much better. No pain. She is ambulating with a walk er. Objective: Vital Signs: Stable. She is afebrile. Extremities: Examination of the right foot reveals still edema and erythema, but improving slowly. No purulent discharge in the wound itself. Moderate amount of fibrin present in granulation tissue. Laboratory Data: White count is reducing to 13.8. Platelets are coming down at 545. Assessment: Status post amputation of the third toe and debridement of the right foot x2 for a necro tizing infection. Recommendations: Continue IV antibiotics and Wound Care as ordered. Once the white count is normal and the redness has improved a little bit more, we can consider discharging the patient home on oral antibiotics, but right now she is not ready yet probably 2 to 3 more days. Once the infection is und er control, she will need a wound VAC, which can be arranged for as an outpatient. FABIAN/JENAE Voice ID: [id number] Report ID: [id number]
[2023-10-17] MEDS: POLYETHYL GLY 3350 17 GM/DOSE PO PRN (16:19)
[2023-10-17 17:26] LABS: Specific Gravity 1.014 (1.005-1.030); Urine Bacteria None Seen /HPF (<20); Urine Bilirubin NEGATIVE (Negative); Urine Blood 1+ (Negative); Urine Clarity Clear (Clear); Urine Color Light-Yellow (Yellow); Urine Glucose 2+ (Negative); Urine Mucus Slight /HPF (None Seen); Urine Protein TRACE (Negative); Urine RBC 21-50 /HPF (None Seen); Urine Urobilinogen Normal (Normal); Urine pH 6.5 (5.0-7.0)
[2023-10-18] MEDS: VANCOMYCIN 1.5 GM in NA CHLORIDE 0.9% 500 ML IVPB SCH ×3 (00:31→22:50)
[2023-10-18 06:52] VITALS: BMI 29.2
[2023-10-18 06:58] LABS: Absolute Lymphocytes (CBC) 2.4 K/uL (0.7-4.9); Hematocrit 31.2 % (36.0-45.0); Lymphocytes % 19.4 % (15.3-44.8); MCV 84.7 fL (80-100); MPV 7.6 fL (7.6-11.3); Platelets 601 thou/uL (152-406); RBC Red Blood Cell Count 3.68 M/uL (3.86-4.86)
[2023-10-18 07:08] LABS: Potassium 3.9 mEq/L (3.5-5.1)
[2023-10-18] MEDS: CEFEPIME 2 GM in NA CHLORIDE 0.9% 100 ML IV SCH ×2 (08:47→22:02)
[2023-10-18] MEDS: INSULIN REGULAR (HUMAN) 100 UNIT/ML SQ SCH ×4 (08:50→22:00)
[2023-10-18] MEDS: INSULIN 70/30 100 UNITS/ML SQ SCH ×2 (08:50→16:30)
[2023-10-18] MEDS: MEDIHONEY 44 ML TOPICAL TUBE TOP SCH (08:51)
--- NOTE | 2023-10-18 11:01 | PN ---
Date of Progress Note: 10/18/2023 Subjective: Patient is awake, alert. No complaint. No pain. Objective: Vital Signs: Stable. She is afebrile, T-max was 99.4. Skin: Her dressing is clean, dry, and intact. Laboratory Data: White count is down to 12.4, platelets are 601. Assessment: Status post multiple debridements and amputation of the right third toe transmetatarsal level. Recommendations: Continue wound care and IV antibiotics as ordered. We will evaluate the wound prio r to discharge to see if it needs more debridement. Yesterday, it appeared to be healing well. The patient is clinically slowly improving. Please note that the cultures from the most recent OR were r eviewed and they are consistent with the cultures of Enterobacter cloacae. /MODL Voice ID: [id number] Report ID: [id number]
--- NOTE | 2023-10-18 11:08 | P.PN ---
Date of Service: 10/18/23 Subjective: Awake alert and oriented x3 no acute distress Reports walking with PT and independently in room using techniques PT taught her WBC trending down, Platelets trending up pain controlled ROS: 10 point ROS as noted above, otherwise negative Physical exam GEN: Alert, oriented, NAD HEENT: Normal conjunctiva, sclera anicteric CV: Regular rate and rhythm, no edema Pulm: Nonlabored respirations on room air ABD: Soft, nontender, nondistended MSK: No joint tenderness Integumentary: Dressing in place to right foot CDI, 2 + peripheral pulses, swelling to right leg, full ROM to right foot Neuro: Normal speech, normal affect Vitals reviewed Problem List Sepsis secondary to right third toe osteomyelitis S/P Incision, drainage and debridement of right foot abscess, right third toe transmetatarsal amputation 10/11 Diabetes mellitus type 1uhq-njbvkee-bsjrobzss with hyperglycemia Hypertension Plan: Sepsis secondary to right third toe osteomyelitis S/P Incision, drainage and debridement of right foot abscess, right third toe transmetatarsal amputation 10/11 White blood cell count 13.8, down from 16 yesterday Went to OR for further incision/drainage/debridement again 10/15, repeat cultures Enterobacter cloacae Original Wound cultures with Enterobacter cloacae-sensitive to cefepime Dressing changes per surgery Continue broad-spectrum antibiotics Blood cultures with NGTD As needed pain medications Diabetes mellitus type 0uqq-jwtppna-qknxjpruy with hyperglycemia ACHS Accu-Chek, sliding scale insulin, A1c 11.6 On glipizide at home, added 70/30 insulin 10 units twice daily Uses [facility], states she gets discounts on certain kinds of insulin Recommend close follow-up with PCP for initiation of affordable insulin Previously on long-acting insulin 5 units daily, 10 units at night Hypertension Continue home medications VTE: Lovenox Code: Full Dispo: 2 to 3 days pending cultures, states family comfortable with dressing changes at home Time Spent Managing Pts Care (In Minutes): 35
[2023-10-18] MEDS: HYDROMORPHONE HCL 1 MG/ML INJ IV PRN (17:42)
[2023-10-18] MEDS: HYDROCODONE/APAP 7.5/325 MG TAB PO PRN (22:02)
[2023-10-19 03:16] LABS: Absolute Lymphocytes (CBC) 3.2 K/uL (0.7-4.9); Hematocrit 31.6 % (36.0-45.0); Lymphocytes % 25.3 % (15.3-44.8); MCV 84.8 fL (80-100); MPV 7.7 fL (7.6-11.3); Platelets 586 thou/uL (152-406); RBC Red Blood Cell Count 3.73 M/uL (3.86-4.86)
[2023-10-19 05:18] LABS: Blood Morphology Comment NOT SEEN (NOT SEEN); Platelet Estimate ADEQ
[2023-10-19] MEDS: INSULIN REGULAR (HUMAN) 100 UNIT/ML SQ SCH ×4 (07:30→21:43)
[2023-10-19] MEDS: INSULIN 70/30 100 UNITS/ML SQ SCH ×2 (08:35→16:30)
[2023-10-19] MEDS: CEFEPIME 2 GM in NA CHLORIDE 0.9% 100 ML IV SCH ×2 (08:35→21:45)
[2023-10-19] MEDS: MEDIHONEY 44 ML TOPICAL TUBE TOP SCH (08:36)
--- NOTE | 2023-10-19 09:57 | PN ---
Date of Progress Note: 10/19/2023 Subjective: Patient is awake, alert. No complaint. Objective: Vital Signs: Stable. Afebrile. Wounds: Examination of the wound reveals some fibrin present throughout the wound. Good granulation tissue. Minimal erythema surrounding the wound, especially on the medial aspect of the plantar side of the wound, but there is no induration and there is no purulence at all and there is no other evid ence of infection. Laboratory Data: Shows a white count of 12.6, platelets are 586. Assessment: Status post incision, drainage and debridement of right foot infected wound and transmet atarsal amputation of the right third toe. Recommendations: Continue wound care and IV antibiotics. Discharge in a.m. on oral antibiotics and follow up [facility] in 1 week. /MODL Voice ID: [id number] Report ID: [id number]
[2023-10-19] MEDS: HYDROCODONE/APAP 7.5/325 MG TAB PO PRN (10:26)
[2023-10-19] MEDS: VANCOMYCIN 1.5 GM in NA CHLORIDE 0.9% 500 ML IVPB SCH (12:46)
--- NOTE | 2023-10-19 16:15 | P.PN ---
Date of Service: 10/19/23 Subjective: Awake eating breakfast this monring, in good spirits reports pain is controlled but noticable from ambulating Swelling to right leg much improved ROS: 10 point ROS as noted above, otherwise negative Physical exam GEN: Alert, oriented, NAD HEENT: Normal conjunctiva, sclera anicteric CV: Regular rate and rhythm, no edema Pulm: Nonlabored respirations on room air ABD: Soft, nontender, nondistended MSK: No joint tenderness Integumentary: Dressing in place to right foot CDI, 2 + peripheral pulses, swelling to right leg improved, full ROM to right foot Neuro: Normal speech, normal affect Vitals reviewed Problem List Sepsis secondary to right third toe osteomyelitis S/P Incision, drainage and debridement of right foot abscess, right third toe transmetatarsal amputation 10/11 Diabetes mellitus type 2oui-diaqtoi-fazyzwekt with hyperglycemia Hypertension Plan: Sepsis secondary to right third toe osteomyelitis S/P Incision, drainage and debridement of right foot abscess, right third toe transmetatarsal amputation 10/11 White blood cell count 13.4, down from 16 yesterday Went to OR for further incision/drainage/debridement again 10/15, repeat cultures Enterobacter cloacae Original Wound cultures with Enterobacter cloacae-sensitive to cefepime Dressing changes per surgery Continue broad-spectrum antibiotics Blood cultures with NGTD As needed pain medications Diabetes mellitus type 8jpv-nakmluf-sfhzidfwl with hyperglycemia ACHS Accu-Chek, sliding scale insulin, A1c 11.6 On glipizide at home, added 70/30 insulin 10 units twice daily Uses [facility] states she gets discounts on certain kinds of insulin Recommend close follow-up with PCP for initiation of affordable insulin Previously on long-acting insulin 5 units daily, 10 units at night Hypertension Continue home medications VTE: Lovenox Code: Full Dispo: likely discharge in the AM with PO abx Time Spent Managing Pts Care (In Minutes): 35
[2023-10-19] MEDS: VANCOMYCIN 1.25 GM in NA CHLORIDE 0.9% 250 ML IVPB SCH (23:04)
[2023-10-20 00:09] VITALS: O2SAT 98
[2023-10-20 04:46] VITALS: TEMP 97.8
[2023-10-20 06:58] LABS: Absolute Lymphocytes (CBC) 2.8 K/uL (0.7-4.9); Hematocrit 31.5 % (36.0-45.0); Lymphocytes % 26.2 % (15.3-44.8); MCV 85.1 fL (80-100); MPV 7.6 fL (7.6-11.3); Platelets 538 thou/uL (152-406); RBC Red Blood Cell Count 3.71 M/uL (3.86-4.86)
[2023-10-20 07:19] LABS: Potassium 3.9 mEq/L (3.5-5.1)
[2023-10-20] MEDS: INSULIN REGULAR (HUMAN) 100 UNIT/ML SQ SCH ×2 (07:30→11:30)
[2023-10-20] MEDS: INSULIN 70/30 100 UNITS/ML SQ SCH (07:30)
[2023-10-20] MEDS ORDERED: POTASSIUM 25 MEQ EFFERV TAB PO ONE (07:54)
[2023-10-20] MEDS: CEFEPIME 2 GM in NA CHLORIDE 0.9% 100 ML IV SCH (08:49)
[2023-10-20] MEDS: MEDIHONEY 44 ML TOPICAL TUBE TOP SCH (08:50)
[2023-10-20] MEDS: VANCOMYCIN 1.25 GM in NA CHLORIDE 0.9% 250 ML IVPB SCH (11:46)
[2023-10-20 12:29] VITALS: BP 150/73
[2023-10-20] MEDS ORDERED: levoFLOXacin 750 MG TAB PO SCH (13:00)
[2023-10-20] MEDS: HYDROCODONE/APAP 7.5/325 MG TAB PO PRN (13:20)
--- NOTE | 2023-10-20 13:52 | PN ---
Date of Progress Note: 10/20/2023 Subjective: Patient is awake, alert. No complaint. Objective: Vital Signs: Stable, afebrile. Skin: Dressing is clean, dry, intact. Laboratory Data: White count is 10.8. Assessment: Status post right 3rd toe transmetatarsal amputation and debridement of right foot diabe tic infection x2. Recommendations: Patient can be discharged home on Levaquin. Pain medicine per the hospitalist, wet -to-dry, normal saline dressing changes daily and follow up in my clinic [facility] next week. /MODL Voice ID: [id number] Report ID: [id number]
--- NOTE | 2023-10-20 16:11 | P.DS ---
Admission Date: 10/11/23 Discharge Date: 10/20/23 Disposition: ROUTINE DISCHARGE Discharge Condition: GOOD Reason for Admission: Osteomyelitis, sepsis Brief History of Present Illness: Diagnosis Sepsis secondary to right third toe osteomyelitis S/P Incision, drainage and debridement of right foot abscess, right third toe transmetatarsal amputation 10/11 Diabetes mellitus type [id number] with hyperglycemia Hypertension Hospital Course: Glenna Finney is a pleasant 42-year-old female with a past medical history significant for vhz-fyqlobx-kclzlfaaw diabetes, hypertension who was admitted to the [facility] on 10/11/2023 for diabetic right foot ulcer. Glenna presented to the ED with complaints of right foot ulcer to the plantar aspect for approximately 2 weeks. She was initially given a course of 5 days of amoxicillin then given clindamycin which she had completed both antibiotics. Despite these 2 antibiotics she was experiencing worsening pain, swelling and drainage of the right foot. Dr. Velazco was consulted and decided on a surgical intervention on 10/11 with a right third toe transmetatarsal amputation then again incision and drainage on 10/15. She has tolerated both surgical procedures and antibiotics well. She has participated with physical therapy using an orthopedic shoe for stable ambulation. She is on room air, afebrile, white blood cells reduced to normal, hemodynamically stable, and tolerating p.o. diet. Swelling has decreased to the right leg and foot, she has full range of motion to the right foot with 2+ peripheral pulses present. On 10/20/2023, Glenna was seen on morning rounds and deemed medically stable for discharge. Glenna was discharged with instructions to schedule follow-up appointments with Dr. Velazco at the wound clinic on PCP for better diabetes control. Glenna was provided prescriptions for Levaquin and Grasston. The patient and family members were given the opportunity to ask questions and reported no further questions. Furthermore, all questions were answered to the best of my ability. A copy of this discharge summary will be sent to the above providers to facilitate continuity of care. Today, I personally spent 55 minutes with Glenna, of which greater than 50% of the time was spent in patient education, counseling, and coordination of care as described above. Vital Signs/Physical Exam: Temp Pulse Resp BP Pulse Ox 97.8 F 77 16 150/73 H 98 12/01/23 12:00 10/20/23 12:00 10/20/23 12:00 10/20/23 12:00 10/20/23 12:00 Laboratory Data at Discharge: WBC 10.80 thou/uL (4.3-10.9) 10/20/23 06:35 Hgb 10.6 g/dL (12.0-15.0) L 10/20/23 06:35 Hct 31.5 % (36.0-45.0) L 10/20/23 06:35 Plt Count 538 thou/uL (152-406) H 10/20/23 06:35 PT 13.8 SECONDS (9.5-12.5) H 10/11/23 13:20 INR 1.25 10/11/23 13:20 APTT 28.2 SECONDS (24.3-36.9) 10/11/23 13:20 Sodium 133 mEq/L (136-145) L 10/20/23 06:35 Potassium 3.9 mEq/L (3.5-5.1) 10/20/23 06:35 BUN 12 mg/dL (7-18) 10/20/23 06:35 Creatinine 0.63 mg/dL (0.55-1.02) 10/20/23 06:35 Glucose 198 mg/dL (74-106) H 10/20/23 06:35 Total Bilirubin 0.5 mg/dL (0.2-1.0) 10/11/23 13:20 AST 6 U/L (15-37) L 10/11/23 13:20 ALT 15 U/L (13-56) 10/11/23 13:20 Alkaline Phosphatase 156 U/L (45-117) H 10/11/23 13:20 Home Medications: Glipizide [Glipizide ER] 10 mg PO BID 05/28/19 Hydrocodone 7.5/APAP 325 [Grasston 7.5/325 mg*] 1 tab PO Q8H PRN 5 Days #15 tab 10/20/23 levoFLOXacin [Levaquin] 500 mg PO DAILY 14 Days #14 tab 10/20/23 New Medications: levoFLOXacin [Levaquin] 500 mg PO DAILY 14 Days #14 tab Hydrocodone 7.5/APAP 325 [Grasston 7.5/325 mg*] 1 tab PO Q8H PRN 5 Days #15 tab PRN Reason: Pain Scale 5-7 (Moderate) Physician Discharge Instructions: Physical exam GEN: Alert, oriented, NAD HEENT: Normal conjunctiva, sclera anicteric CV: Regular rate and rhythm, no edema Pulm: Nonlabored respirations on room air ABD: Soft, nontender, nondistended MSK: No joint tenderness Integumentary: Dressing in place to right foot CDI, 2 + peripheral pulses, swelling to right leg improved, full ROM to right foot Neuro: Normal speech, normal affect Levaquin and pain medicine per the hospitalist Wet-to-dry normal saline dressing changes daily Activity as tolerated, no heavy lifting or strenuous exercise and offload wound Resume home meds and diet Follow-up in the wound healing center in my clinic next , left a message to schedule an appointment, please call on Monday as well Follow up with PCP for diabetes management and yearly check ups Continue diabetic diet New medications Hydrocodone Q8H for pain levaquin 500 mg by mouth daily for 14 days Diet: ADA Activity: No lifting more than 10 lbs (Offload wound) Followup: NONE,NONE [Primary Care Provider] - 1-2 Weeks Hong Velazco MD [ACTIVE - CAN ADMIT] - 1 Week (Wound healing center in my clinic next )
== END 2023-10-20 14:25 | disposition home or self-care (01) | DRG 854 ==
LOC: ER 11:38 → ERHOLD 14:21 → 2ND 15:00
PROVIDERS: ADMIT Hospitalist; ATTEND Internal Medicine
PROC: 0Y6T0Z1 Detachment at Right 3rd Toe, High, Open Approach (ICD-10-PCS; 2023-10-11)
PROC: 0JBQ0ZZ Excision of Right Foot Subcutaneous Tissue and Fascia, Open Approach (ICD-10-PCS; principal; 2023-10-11 15:00)
PROC: 0JBQ0ZZ Excision of Right Foot Subcutaneous Tissue and Fascia, Open Approach (ICD-10-PCS; 2023-10-15)
DX: A41.9 Sepsis, unspecified organism (principal); E11.52 Type 2 diabetes mellitus with diabetic peripheral angiopathy with gangrene; L03.115 Cellulitis of right lower limb; M86.8X7 Other osteomyelitis, ankle and foot; E11.69 Type 2 diabetes mellitus with other specified complication; E11.65 Type 2 diabetes mellitus with hyperglycemia; E11.621 Type 2 diabetes mellitus with foot ulcer; L97.519 Non-pressure chronic ulcer of other part of right foot with unspecified severity; I10 Essential (primary) hypertension; B96.89 Other specified bacterial agents as the cause of diseases classified elsewhere; Z79.4 Long term (current) use of insulin; Z79.84 Long term (current) use of oral hypoglycemic drugs; Z79.82 Long term (current) use of aspirin; Z90.79 Acquired absence of other genital organ(s); Z79.52 Long term (current) use of systemic steroids; Z79.899 Other long term (current) drug therapy; Z90.721 Acquired absence of ovaries, unilateral
CPT/HCPCS: 31720; 36415; 73700; 74174; 80048; 80053; 80202; 81001; 81025; 82947; 83036; 83540; 83605; 84145; 84466; 85025; 85027; 85610; 85730; 86140; 87040; 87070; 87075; 87077; 87176; 87186; 87205; 88304; 93925; 94010; 96374; 96375; 97116; 97161; 99284; J0692; J1100; J1170; J1815; J2001; J2250; J2371; J2405; J2704; J3010; J3590; J7030; J7040; J7050; Q9967

== ENCOUNTER 2025-02-13 09:06 | Emergency (ER) | payer OTHER ==
--- OUTSIDE RECORDS SUMMARY | 2025-02-13 09:17 | XMS REPORT | Continuity of Care Document ---
Author Name Unknown Address [address] [facility] [address] [place] [address] Organization [facility] [place] Address [address] 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 Role Phone Cuco Aguayo Primary Care Physician [phone] [place] Attending Clinician UnavailAlban Méndez Attending Clinician + [phone] [email or web address] Attending Clinician Unavaila Lorena Mari Attending Clinician Unavaila beatriz EDDOC, GENERIC FOR EDM Attending Clinician Unava ESHA Hay Attending Clinician UnavailEsha Nava DO Attending Clinician [phone] VIVIANE MCKEON Attending Clinician Unavailable Viviane Conti Attending Clinician [phone] Doctor Unassigned, [place] Attending Clinician U FRANK Glass Attending Clinician Unavailable FRANK SAMPSON Attending Clinician Unavailable Edgardo Jim DO Attending Clinician [phone] Frank Sampson DO Attending Clinician [phone] MO QUINTERO Attending Clinician Unavail able Mo Quintero MD Attending Clinician Rm, Adc Surg Spec Procedure Attending Clinician Unavailable [place] Admitting Clinician Unavaila ble [email or web address] Admitting Clinician Unavaila Amelia Patino Admitting Clinician Unav ailable Physician, No Primary or Family Admitting Clinic eric Unavailable ESHA CUI Admitting Clinician Unavailab le Payers Payer Name Policy Type Policy Number Effective Date Expirati on Date Source JUDSONNA II [id number] 2016 00:00:00 Problems Condition Name Condition Details Condition Category Status Onset Date Resolution Date Last Treatment Date Treating Clinician Comments Source Well woman exam with routine gynecologi kellie exam Well woman exam with routine gynecologi kellie exam Disease Active 2016-11 00:00: 00 [facility] Uncontroll ed type 2 diabetes mellitus without complicati on, without long-term current use of insulin Uncontroll ed type 2 diabetes mellitus without complicati on, without long-term current use of insulin Disease Active 2016-11 00:00: 00 [facility] BMI 33.0-33.9, adult BMI 33.0-33.9, adult Disease Active 2016-11 00:00: 00 [facility] Morbid obesity Morbid obesity Disease Active 2016-11 00:00: 00 [facility] Diabetes mellitus type 2, uncontroll ed, without complicati ons Diabetes mellitus type 2, uncontroll ed, without complicati ons Disease Active 2013-11 00:00: 00 Overview: Formattin g of this note might be different from the original. 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 [facility] Elevated blood pressure reading without diagnosis of hypertensi on Elevated blood pressure reading without diagnosis of hypertensi on Disease Active 2013-11 00:00: 00 [facility] Dysmenorrh ea Dysmenorrh ea Disease Active 2013-11 00:00: 00 [facility] Allergies, Adverse Reactions, Alerts Allergy Name Allergy Type Status Severity Reaction(s) Onset Date Inactive Date Treating Clinician Comments Source No Known Allergie s DA Active U 12-17 00:00: 00 [facility] NO KNOWN ALLERGIE S Drug Class Active [facility] Social History Social Habit Start Date Stop Date Quantity Comments Source Exposure to SARS-CoV-2 (event) Not sure [facility] History of tobacco use Cigarette Smoker [facility] Sexual orientation U [facility] Alcohol intake 2023-10-03 00:00:00 2023-10-03 00:00:00 Current non-drinker of alcohol (finding) [facility] History of Social function 2020-09-11 00:00:00 2020-09-11 00:00:00 [facility] Tobacco use and exposure 2020-08-21 00:00:00 2020-08-21 00:00:00 Smokeless tobacco non-user [facility] Sex Assigned At 1980 00:00:00 1980 00:00:00 [facility] Smoking Status Start Date Stop Date Source Ex-smoker 2020-08-21 00:00:00 2020-08-21 00:00:00 [facility] Never smoker [facility] Medications Ordered Medication Name Filled Medication Name Start Date Stop Date Current Medication? Ordering Clinician Indication Dosage Frequency Signature (SIG) Comments Components Source albuterol sulfate HFA 90 mcg/actuati on aerosol inhaler 2023-11 00:00: 00 Yes 2mcg/ac tuation Caden Rehman cetirizine 10 mg tablet 2023-11 00:00: 00 Yes 1mg Caden Rehman benzonatate 200 mg capsule 2023-11- 00:00: 00 Yes 1mg Caden Rehman lisinopril 10 mg tablet - 00:00: 00 Yes 1mg Caden Rehman glipizide 10 mg tablet 2024-0 6-10 00:00: 00 Yes 2mg Caden Rehman atorvastati n 20 mg tablet 04-29 00:00: 00 Yes 1mg Caden Rehman amoxicillin -clavulanat e 875-125 mg per tablet 2022-11 00:00: 00 Yes [id number] 1{tbl} Take 1 tablet by mouth every 12 (twelve) hours. [facility] TAKE 1 TABLET DAILY. 07-21 00:00: 00 10-03 00:00 :00 No 20 Caden Rehman TAKE 1 CAPSULE BY MOUTH EVERY 6 HOURS FOR 10 DAYS FOR INFECTIOUS PROCESS 07-09 00:00: 00 Yes Caden Rehman TAKE 1 TABLET DAILY. 01-10 00:00: 00 10-03 00:00 :00 No 10 Caden Rehman TAKE 2 TABLETS TWICE DAILY 01-10 00:00: 00 10-03 00:00 :00 No 10 Caden Rehman ALBUTEROL SULFATE HFA 108 (90 Base) MCG/ACT AERS 12-28 00:00: 00 Yes Caden Rehman TAKE 10 ML EVERY 4 TO 6 HOURS NEEDED. 12-28 00:00: 00 10-03 00:00 :00 No [id number] Caden Rehman INHALE 1 TO 2 PUFFS EVERY 6 HOURS NEEDED. 12-28 00:00: 00 10-03 00:00 :00 No [id number] Caden Rehman INJECT 10 UNITS AT BEDTIME 2021-11 00:00: 00 10-03 00:00 :00 No 100 Caden Rehman TAKE 1 CAPSULE BY MOUTH EVERY 12 HOURS 2021-11 00:00: 00 Yes Caden Rehman TAKE 1 TABLET BY MOUTH TWICE DAILY BEFORE BREAKFAST AND BEFORE SUPPER 2021-11 00:00: 00 Yes Caden Rehman Dose Unknown 2021-11 00:00: 00 Yes Caden Rehman TAKE 1 TABLET BY MOUTH ONCE DAILY 2021-11 00:00: 00 Yes Caden Rehman TAKE 1 TABLET BY MOUTH TWICE DAILY 2022-1 2-14 00:00: 00 Yes Caden Rehman TAKE 1 TABLET BY MOUTH EVERY 6 HOURS NEEDED FOR PAIN ( SCALE 4-6 MODERATE ) 2021-1 2-14 00:00: 00 Yes Caden Rehman Dose Unknown 2021-1 2-14 00:00: 00 Yes Caden Rehman TAKE 3 CAPSULES BY MOUTH THREE TIMES DAILY FOR 7 DAYS 2-0 6-21 00:00: 00 Yes Caden Rehman TAKE 3 CAPSULES BY MOUTH THREE TIMES DAILY FOR 7 DAYS 2-0 6-21 00:00: 00 No furosemide 20 mg tablet 2-0 6-18 00:00: 00 Yes 1mg Caden Rehman furosemide 20 mg tablet 2-0 6-18 00:00: 00 No 1mg TAKE 1 CAPSULE BY MOUTH EVERY 6 HOURS FOR 10 DAYS FOR INFECTIOUS PROCESS 2021-0 6-10 00:00: 00 Yes Caden Rodriguez Ori Dose Unknown 2022-0 3-18 00:00: 00 Yes Caden F Ori Dose Unknown 2022-0 3-18 00:00: 00 Yes Caden F Ori Dose Unknown 2022-0 3-18 00:00: 00 Yes Caden F Ori Dose Unknown 2022-0 3-18 00:00: 00 Yes Caden F Ori Dose Unknown 2022-0 3-18 00:00: 00 Yes Caden F Ori Dose Unknown 2022-0 3-18 00:00: 00 Yes Caden F Ori Dose Unknown 2022-0 3-18 00:00: 00 Yes Caden F Ori Dose Unknown 2022-0 3-18 00:00: 00 Yes Caden F Ori Dose Unknown 2022-0 3-18 00:00: 00 Yes Caden F Ori Dose Unknown 2022-0 3-18 00:00: 00 No Dose Unknown 2022-0 3-18 00:00: 00 No Dose Unknown 2022-0 3-18 00:00: 00 No Dose Unknown 2022-0 3-18 00:00: 00 No Dose Unknown 2022-0 3-18 00:00: 00 No Dose Unknown 2022-0 3-18 00:00: 00 No Dose Unknown 2022-0 3-18 00:00: 00 No Dose Unknown 2022-0 3-18 00:00: 00 No Dose Unknown 2022-0 3-18 00:00: 00 No Dose Unknown 2022-0 3-04 00:00: 00 Yes Caden F Ori Dose Unknown 2022-0 3-04 00:00: 00 Yes Caden F Ori Dose Unknown 2022-0 3-04 00:00: 00 Yes Caden F Ori Dose Unknown 2022-0 3-04 00:00: 00 Yes Caden F Ori Dose Unknown 2022-0 3-04 00:00: 00 Yes Caden F Ori Dose Unknown 2022-0 3-04 00:00: 00 Yes Caden F Ori Dose Unknown 2022-0 3-04 00:00: 00 Yes Caden F Ori Dose Unknown 2022-0 3-04 00:00: 00 Yes Caden F Ori Dose Unknown 2022-0 3-04 00:00: 00 Yes Caden F Ori Dose Unknown 2022-0 3-04 00:00: 00 No Dose Unknown 2022-0 3-04 00:00: 00 No Dose Unknown 2022-0 3-04 00:00: 00 No Dose Unknown 2022-0 3-04 00:00: 00 No Dose Unknown 2022-0 3-04 00:00: 00 No Dose Unknown 2022-0 3-04 00:00: 00 No Dose Unknown 2022-0 3-04 00:00: 00 No Dose Unknown 2022-0 3-04 00:00: 00 No Dose Unknown 2022-0 3-04 00:00: 00 No metformin HCl (METFORMIN ORAL) 12-17 14:49: 12-17 00:00 :00 No 1000mg Take 1,000 mg by mouth 2 (two) times daily. [facility] glipiZIDE 10 mg tablet 12-17 14:49: 12-17 00:00 :00 No 10mg Take 10 mg by mouth 2 (two) times daily before breakfast and dinner. [facility] glipiZIDE 10 mg tablet 12-17 00:00: 00 Yes [id number] 10mg Take 1 tablet by mouth 2 (two) times daily before breakfast and dinner. [facility] metFORMIN 500 mg tablet 12-17 00:00: 00 Yes [id number] 500mg Take 1 tablet by mouth 2 (two) times daily. [facility] insulin NPH and regular human 70-30 100 unit/mL (70-30) injection 12-17 00:00: 00 01-17 05:59 :00 No [id number] 10U inject 10 Units under the skin 2 (two) times daily before breakfast and dinner for 30 days. [facility] clindamycin 150 mg capsule 11-28 00:00: 00 12-06 05:59 :00 No [id number] 450mg Take 3 capsules by mouth 3 (three) times daily for 7 days. [facility] sulfamethox azole 800 mg-trimetho prim 160 mg tablet 08-10 00:00: 00 Yes 1mg Caden Rehman amoxicillin 875 mg-potassiu m clavulanate 125 mg tablet 08-10 00:00: 00 Yes 1mg Caden Rehman sulfamethox azole 800 mg-trimetho prim 160 mg tablet 08-10 00:00: 00 No 1mg amoxicillin 875 mg-potassiu m clavulanate 125 mg tablet 08-10 00:00: 00 No 1mg Dose Unknown 07-20 00:00: 00 Yes Caden Rehman Dose Unknown 07-20 00:00: 00 Yes Caden Rehman Dose Unknown 07-20 00:00: 00 Yes Caden Rehman Dose Unknown 07-20 00:00: 00 Yes Caden Rehman ProAir HFA 90 mcg/actuati on aerosol inhaler 07-20 00:00: 00 No 2mcg/ac tuation Novolin 70/30 U-100 Insulin 100 unit/mL subcutaneou s suspension 07-20 00:00: 00 No 10unit/ mL (70-30) metformin 1,000 mg tablet 07-20 00:00: 00 No 1mg glipizide 10 mg tablet 07-20 00:00: 00 No 2mg Dose Unknown 11-27 00:00: 00 Yes Caden Michael Ori Dose Unknown 11-27 00:00: 00 Yes Caden Michael Ori Dose Unknown 11-27 00:00: 00 Yes Caden Rehman ibuprofen 800 mg tablet 11-27 00:00: 00 No 1mg Dose Unknown 11-27 00:00: 00 No nitrofurant oin macrocrysta l 100 mg capsule 11-27 00:00: 00 No 1mg Dose Unknown 2019-11 00:00: 00 Yes Caden Rehman AirDuo RespiClick 232 mcg-14 mcg/actuati on breath activated 2019-11 00:00: 00 Yes 1mcg/ac tuation Caden Rehman Dose Unknown 2019-11 00:00: 00 Yes Caden Rehman Dose Unknown 2019-11 00:00: 00 Yes Caden Rehman Dose Unknown 2019-11 00:00: 00 Yes Caden Rehman AirDuo RespiClick 232 mcg-14 mcg/actuati on breath activated 2019-11 00:00: 00 No 1mcg/ac tuation Advair Diskus 500 mcg-50 mcg/dose powder for inhalation 2019-11 00:00: 00 No 1mcg/do se levofloxaci n 500 mg tablet 2019-11 00:00: 00 No 1mg dexamethaso ne 4 mg tablet 2019-11 00:00: 00 No 1mg ALBUTEROL INHALE 2019-11 16:02: 58 Yes 1{puff} Inhale 1 Puff. [facility] metformin HCl (METFORMIN ORAL) 2019-11 16:02: 58 Yes 1000mg Take 1,000 mg by mouth 2 (two) times daily. [facility] glipiZIDE 10 mg tablet 2019-11 16:02: 58 Yes 10mg Take 10 mg by mouth 2 (two) times daily before breakfast and dinner. [facility] lisinopriL 10 mg tablet 2019-11 16:02: 58 Yes 10mg Take 10 mg by mouth daily. [facility] aspirin 325 mg tablet 2019-11 16:02: 58 Yes 325mg Take 325 mg by mouth daily. [facility] ALBUTEROL INHALE 2019-11 11:02: 58 Yes 1{puff} Inhale 1 Puff. [facility] metformin HCl (METFORMIN ORAL) 2019-11 11:02: 58 Yes 1000mg Take 1,000 mg by mouth 2 (two) times daily. [facility] glipiZIDE 10 mg tablet 2019-11 11:02: 58 Yes 10mg Take 10 mg by mouth 2 (two) times daily before breakfast and dinner. [facility] lisinopriL 10 mg tablet 2019-11 11:02: 58 Yes 10mg Take 10 mg by mouth daily. [facility] aspirin 325 mg tablet 2019-11 11:02: 58 Yes 325mg Take 325 mg by mouth daily. [facility] ProAir HFA 90 mcg/actuati on aerosol inhaler 2019-11 00:00: 00 Yes 2mcg/ac tuation Caden F Ori Dose Unknown 2019-11 00:00: 00 Yes Caden F Ori Dose Unknown 2019-11 00:00: 00 Yes Caden F Ori ProAir HFA 90 mcg/actuati on aerosol inhaler 2019-11 00:00: 00 No 2mcg/ac tuation mupirocin 2 % topical ointment 2019-11 00:00: 00 No 1% clindamycin HCl 300 mg capsule 2019-11 00:00: 00 No 1mg glipiZIDE 10 mg tablet 2019-11 16:46: 17 Yes 10mg Take 10 mg by mouth 2 (two) times daily before breakfast and dinner. [facility] lisinopriL 10 mg tablet 2019-11 16:46: 17 Yes 10mg Take 10 mg by mouth daily. [facility] aspirin 325 mg tablet 2019-11 16:46: 17 Yes 325mg Take 325 mg by mouth daily. [facility] ALBUTEROL INHALE 2019-11 16:46: 16 Yes 1{puff} Inhale 1 Puff. [facility] metformin HCl (METFORMIN ORAL) 2019-11 16:46: 16 Yes 1000mg Take 1,000 mg by mouth 2 (two) times daily. [facility] fluticasone propion-rowena meteroL (AIRDUO RESPICLICK) 113-14 mcg/actuati on AePB 2019-11 00:00: 00 Yes [id number] 1{puff} Inhale 1 Puff 2 (two) times daily. [facility] Dose Unknown 07-28 00:00: 00 Yes Caden Rehman Dose Unknown 07-28 00:00: 00 Yes Caden Rehman Dose Unknown 07-28 00:00: 00 Yes Caden Rehman Novolin 70/30 U-100 Insulin 100 unit/mL subcutaneou s suspension 07-28 00:00: 00 No 10unit/ mL (70-30) aspirin 325 mg tablet 07-28 00:00: 00 No 1mg prednisone 20 mg tablet 07-28 00:00: 00 No 1mg Dose Unknown 05-30 00:00: 00 Yes Caden Rehman metformin 1,000 mg tablet 05-30 00:00: 00 Yes 1mg Caden Rehman Dose Unknown 05-30 00:00: 00 Yes Caden Rehman lisinopril 20 mg tablet 05-30 00:00: 00 No 1mg Dose Unknown 05-30 00:00: 00 No metformin 1,000 mg tablet 05-30 00:00: 00 No 1mg omeprazole 40 mg capsule,del ayed release 04-28 00:00: 00 Yes 1mg Caden Rehman omeprazole 40 mg capsule,del ayed release 04-28 00:00: 00 No 1mg lisinopril 20 mg tablet 03-14 00:00: 00 Yes 1mg Caden Rehman Macrobid 100 mg capsule 03-14 00:00: 00 Yes 1mg Caden Rehman lisinopril 20 mg tablet 03-14 00:00: 00 No 1mg Macrobid 100 mg capsule 03-14 00:00: 00 No 1mg Tamiflu 75 mg capsule 3-18 00:00: 00 Yes 1mg Caden Rehman promethazin e-DM 6.25 mg-15 mg/5 mL oral syrup 18 00:00: 00 Yes 10mg/5 mL Caden Rehman Tamiflu 75 mg capsule 18 00:00: 00 No 1mg promethazin e-DM 6.25 mg-15 mg/5 mL oral syrup 18 00:00: 00 No 10mg/5 mL ondansetron HCl 4 mg tablet 01-19 00:00: 00 Yes 1mg Caden Rehman ondansetron HCl 4 mg tablet 01-19 00:00: 00 No 1mg loratadine 10 mg tablet 12-03 00:00: 00 Yes 1mg Caden Rehman amoxicillin 500 mg tablet 12-03 00:00: 00 Yes 1mg Caden Rehman loratadine 10 mg tablet 12-03 00:00: 00 No 1mg amoxicillin 500 mg tablet 12-03 00:00: 00 No 1mg lisinopril 10 mg tablet 2017-11 00:00: 00 Yes 1mg Caden Rehman glipizide 10 mg tablet 2017-11 0 00:00: 00 Yes 1mg Caden Rehman metformin 1,000 mg tablet 2017-11 0 00:00: 00 Yes 1mg Caden Rehman cyclobenzap rine 10 mg tablet 2017-11 0 00:00: 00 Yes 1mg Caden Rehman lisinopril 10 mg tablet 2017-11 0 00:00: 00 No 1mg glipizide 10 mg tablet 2017-11 0 00:00: 00 No 1mg metformin 1,000 mg tablet 2017-11 00:00: 00 No 1mg cyclobenzap rine 10 mg tablet 2017-11 0 00:00: 00 No 1mg metformin 1,000 mg tablet 04-30 00:00: 00 Yes 1mg Caden Rehman metformin 1,000 mg tablet 04-30 00:00: 00 No 1mg Novolin R Regular U-100 Insulin 100 unit/mL injection solution 04-20 00:00: 00 Yes unit/mL Caden Rehman triamcinolo ne acetonide 0.1 % topical cream 04-20 00:00: 00 Yes 1% Caden Rehman lovastatin 10 mg tablet 04-20 00:00: 00 Yes 1mg Caden Rehman Novolin R Regular U-100 Insulin 100 unit/mL injection solution 04-20 00:00: 00 No unit/mL triamcinolo ne acetonide 0.1 % topical cream 04-20 00:00: 00 No 1% lovastatin 10 mg tablet 04-20 00:00: 00 No 1mg prednisone 20 mg tablet 01-10 00:00: 00 Yes 1mg Caden Rehman amoxicillin 500 mg tablet 01-10 00:00: 00 Yes 1mg Caden Rehman prednisone 20 mg tablet 01-10 00:00: 00 No 1mg amoxicillin 500 mg tablet 01-10 00:00: 00 No 1mg lovastatin 10 mg tablet 05-03 00:00: 00 Yes 1mg Caden Rehman glimepiride 2 mg tablet 05-03 00:00: 00 Yes 1mg Caden Rehman metformin 1,000 mg tablet 05-03 00:00: 00 Yes 1mg Caden Rehman lovastatin 10 mg tablet 05-03 00:00: 00 No 1mg glimepiride 2 mg tablet 05-03 00:00: 00 No 1mg metformin 1,000 mg tablet 05-03 00:00: 00 No 1mg Novolin R Regular U-100 Insulin 100 unit/mL injection solution 05-02 00:00: 00 Yes unit/mL Caden Rehman lovastatin 10 mg tablet 05-02 00:00: 00 Yes 1mg Caden Rehman glimepiride 2 mg tablet 05-02 00:00: 00 Yes 1mg Caden Rehman lisinopril 5 mg tablet 05-02 00:00: 00 Yes 1mg Caden Rehman metformin 1,000 mg tablet 05-02 00:00: 00 Yes 1mg Caden Rehman Novolin R Regular U-100 Insulin 100 unit/mL injection solution 05-02 00:00: 00 No unit/mL lovastatin 10 mg tablet 05-02 00:00: 00 No 1mg glimepiride 2 mg tablet 05-02 00:00: 00 No 1mg lisinopril 5 mg tablet 05-02 00:00: 00 No 1mg metformin 1,000 mg tablet 05-02 00:00: 00 No 1mg glimepiride 2 mg tablet 07-29 00:00: 00 Yes 1mg Caden Rehman metformin 1,000 mg tablet 07-29 00:00: 00 Yes 1mg Caden Rehman glimepiride 2 mg tablet 07-29 00:00: 00 No 1mg metformin 1,000 mg tablet 07-29 00:00: 00 No 1mg No known medications No Un irais [facility] Immunizations Ordered Immunization Name Filled Immunization Name Date Status Comments Source Moderna COVID-19 Vaccine Moderna COVID-19 Vaccine 2021-03-26 00:00:00 Completed Caden Rehman Moderna COVID-19 Vaccine 2021-03-26 00:00:00 Completed Moderna COVID-19 Vaccine 2021-03-26 00:00:00 Completed Moderna COVID-19 Vaccine Moderna COVID-19 Vaccine 2021-02-26 00:00:00 Completed Caden Rehman Moderna COVID-19 Vaccine 2021-02-26 00:00:00 Completed Moderna COVID-19 Vaccine 2021-02-26 00:00:00 Completed MMR 2014-10-22 00:00:00 Completed [facility] MMR 2014-10-22 00:00:00 Completed [facility] MMR 2014-10-22 00:00:00 Completed [facility] MMR 2014-10-22 00:00:00 Completed [facility] MMR 2014-10-22 00:00:00 Completed [facility] MMR 2014-10-22 00:00:00 Completed [facility] MMR 2014-10-22 00:00:00 Completed [facility] MMR 2014-10-22 00:00:00 Completed [facility] MMR 2014-10-22 00:00:00 Completed [facility] MMR 2014-10-22 00:00:00 Completed [facility] Influenza Virus Vaccine 2011-11-22 00:00:00 Completed [facility] Pneumococcal Polysaccharide, PPSV23 (PNEUMOVAX) 2011-11-22 00:00:00 Completed [facility] Influenza Virus Vaccine 2011-11-22 00:00:00 Completed [facility] Pneumococcal Polysaccharide, PPSV23 (PNEUMOVAX) 2011-11-22 00:00:00 Completed [facility] Influenza Virus Vaccine 2011-11-22 00:00:00 Completed [facility] Pneumococcal Polysaccharide, PPSV23 (PNEUMOVAX) 2011-11-22 00:00:00 Completed [facility] Influenza Virus Vaccine 2011-11-22 00:00:00 Completed [facility] Influenza Virus Vaccine 2011-11-22 00:00:00 Completed [facility] Pneumococcal Polysaccharide, PPSV23 (PNEUMOVAX) 2011-11-22 00:00:00 Completed [facility] Pneumococcal Polysaccharide, PPSV23 (PNEUMOVAX) 2011-11-22 00:00:00 Completed [facility] Influenza Virus Vaccine 2011-11-22 00:00:00 Completed [facility] Pneumococcal Polysaccharide, PPSV23 (PNEUMOVAX) 2011-11-22 00:00:00 Completed [facility] Influenza Virus Vaccine 2011-11-22 00:00:00 Completed [facility] Pneumococcal Polysaccharide, PPSV23 (PNEUMOVAX) 2011-11-22 00:00:00 Completed [facility] Influenza Virus Vaccine 2011-11-22 00:00:00 Completed [facility] Pneumococcal Polysaccharide, PPSV23 (PNEUMOVAX) 2011-11-22 00:00:00 Completed [facility] Influenza Virus Vaccine 2011-11-22 00:00:00 Completed [facility] Pneumococcal Polysaccharide, PPSV23 (PNEUMOVAX) 2011-11-22 00:00:00 Completed [facility] Influenza Virus Vaccine 2011-11-22 00:00:00 Completed [facility] Pneumococcal Polysaccharide, PPSV23 (PNEUMOVAX) 2011-11-22 00:00:00 Completed [facility] MMR 2011-11-09 00:00:00 Completed [facility] MMR 2011-11-09 00:00:00 Completed [facility] MMR 2011-11-09 00:00:00 Completed [facility] MMR 2011-11-09 00:00:00 Completed [facility] MMR 2011-11-09 00:00:00 Completed [facility] MMR 2011-11-09 00:00:00 Completed [facility] MMR 2011-11-09 00:00:00 Completed [facility] MMR 2011-11-09 00:00:00 Completed [facility] MMR 2011-11-09 00:00:00 Completed [facility] MMR 2011-11-09 00:00:00 Completed [facility] Hep B, Adol or Pedi Dosage 2004-06-19 00:00:00 Completed [facility] Hep B, Adol or Pedi Dosage 2004-06-19 00:00:00 Completed [facility] Hep B, Adol or Pedi Dosage 2004-06-19 00:00:00 Completed [facility] Hep B, Adol or Pedi Dosage 2004-06-19 00:00:00 Completed [facility] Hep B, Adol or Pedi Dosage 2004-06-19 00:00:00 Completed [facility] Hep B, Adol or Pedi Dosage 2004-06-19 00:00:00 Completed [facility] Hep B, Adol or Pedi Dosage 2004-06-19 00:00:00 Completed [facility] Hep B, Adol or Pedi Dosage 2004-06-19 00:00:00 Completed [facility] Hep B, Adol or Pedi Dosage 2004-06-19 00:00:00 Completed [facility] Hep B, Adol or Pedi Dosage 2004-06-19 00:00:00 Completed [facility] MMR Unknown Completed [facility] Influenza Virus Vaccine Unknown Completed [facility] Pneumococcal Polysaccharide, PPSV23 (PNEUMOVAX) Unknown Completed [facility] Vital Signs Vital Name Observation Time Observation Value Comments S ource Systolic blood pressure 2023-10-03 23:39:04 136 mm[Hg] [facility] Diastolic blood pressure 2023-10-03 23:39:04 88 mm[Hg] [facility] Heart rate 2023-10-03 23:39:04 92 /min [facility] Body temperature 2023-10-03 23:39:04 37 Alexandrea [facility] Respiratory rate 2023-10-03 23:39:04 18 /min [facility] Oxygen saturation in Arterial blood by Pulse oximetry 2023-10-03 23:39:04 100 /min [facility] Body height 2023-10-03 21:21:00 172.7 cm [facility] Body weight 2023-10-03 21:21:00 91.627 kg [facility] BMI 2023-10-03 21:21:00 30.71 kg/m2 [facility] Systolic blood pressure 2021-12-17 18:22:00 151 mm[Hg] [facility] Diastolic blood pressure 2021-12-17 18:22:00 88 mm[Hg] [facility] Heart rate 2021-12-17 18:22:00 110 /min [facility] Body temperature 2021-12-17 18:22:00 36.33 Alexandrea [facility] Respiratory rate 2021-12-17 18:22:00 18 /min [facility] Body weight 2021-12-17 18:22:00 96.616 kg [facility] BMI 2021-12-17 18:22:00 32.39 kg/m2 [facility] Oxygen saturation in Arterial blood by Pulse oximetry 2021-12-17 18:22:00 99 /min [facility] Systolic blood pressure 2021-11-28 20:35:00 147 mm[Hg] [facility] Diastolic blood pressure 2021-11-28 20:35:00 102 mm[Hg] [facility] Heart rate 2021-11-28 20:35:00 98 /min [facility] Body temperature 2021-11-28 20:35:00 37.06 Alexandrea [facility] Respiratory rate 2021-11-28 20:35:00 18 /min [facility] Body weight 2021-11-28 20:35:00 96.616 kg Univ [facility] BMI 2021-11-28 20:35:00 32.39 kg/m2 [facility] Oxygen saturation in Arterial blood by Pulse oximetry 2021-11-28 20:35:00 99 /min [facility] Systolic blood pressure 2020-11-26 19:22:00 156 mm[Hg] [facility] Diastolic blood pressure 2020-11-26 19:22:00 94 mm[Hg] [facility] Heart rate 2020-11-26 19:18:00 94 /min [facility] Respiratory rate 2020-11-26 19:18:00 19 /min [facility] Body height 2020-11-26 19:18:00 172.7 cm [facility] Body weight 2020-11-26 19:18:00 96.888 kg [facility] BMI 2020-11-26 19:18:00 32.48 kg/m2 [facility] Oxygen saturation in Arterial blood by Pulse oximetry 2020-11-26 19:18:00 98 /min [facility] Systolic blood pressure 2020-09-11 16:16:00 106 mm[Hg] [facility] Diastolic blood pressure 2020-09-11 16:16:00 70 mm[Hg] [facility] Heart rate 2020-09-11 16:16:00 110 /min [facility] Body temperature 2020-09-11 16:16:00 36.22 Alexandrea [facility] Respiratory rate 2020-09-11 16:16:00 18 /min [facility] Body weight 2020-09-11 16:16:00 99.156 kg [facility] BMI 2020-09-11 16:16:00 34.24 kg/m2 [facility] Systolic blood pressure 2020-09-04 16:01:00 178 mm[Hg] [facility] Diastolic blood pressure 2020-09-04 16:01:00 105 mm[Hg] [facility] Heart rate 2020-09-04 16:01:00 111 /min [facility] Body temperature 2020-09-04 16:01:00 36.17 Alexandrea [facility] Respiratory rate 2020-09-04 16:01:00 18 /min [facility] Body height 2020-09-04 16:01:00 170.2 cm [facility] Body weight 2020-09-04 16:01:00 98.431 kg [facility] BMI 2020-09-04 16:01:00 33.99 kg/m2 [facility] Systolic blood pressure 2020-08-21 16:42:00 137 mm[Hg] Isabel o [facility] Diastolic blood pressure 2020-08-21 16:42:00 91 mm[Hg] University o [facility] Heart rate 2020-08-21 16:42:00 105 /min [facility] Body height 2020-08-21 16:42:00 172.7 cm [facility] Body weight 2020-08-21 16:42:00 92.987 kg [facility] BMI 2020-08-21 16:42:00 31.17 kg/m2 [facility] Oxygen saturation in Arterial blood by Pulse oximetry 2020-08-21 16:42:00 99 /min Isabel o [facility] BP Systolic 2024-10-22 14:50:00 142 mm[Hg] Step hen F Ori BP Diastolic 2024-10-22 14:50:00 88 mm[Hg] Tobias phen F Ori Weight Measured 2024-10-22 14:50:00 196.20 pounds Caden F Ori Height Measured 2024-10-22 14:50:00 64.00 inches Caden F [facility] Body Temperature 2024-10-22 14:50:00 98.40 degrees Caden F Ori Heart Rate 2024-10-22 14:50:00 112.00 /min Step hen F [facility] Respiratory Rate 2024-10-22 14:50:00 17.00 /min Caden F Ori Height Measured 2024-04-29 16:33:00 64.00 inches Caden F [facility] Body Temperature 2024-04-29 16:33:00 98.20 degrees Caden F Ori Heart Rate 2024-04-29 16:33:00 91.00 /min Geetha en F Ori Respiratory Rate 2024-04-29 16:33:00 16.00 /min Caden F Ori BP Systolic 2024-04-29 16:33:00 134 mm[Hg] Step hen F Ori BP Diastolic 2024-04-29 16:33:00 86 mm[Hg] Tobias phen F Ori Weight Measured 2024-04-29 16:33:00 200.80 pounds Caden F Ori BP Systolic 2023-01-10 16:24:00 168 mm[Hg] Step hen F Ori BP Diastolic 2023-01-10 16:24:00 110 mm[Hg] Tobias phen F Ori Weight Measured 2023-01-10 16:24:00 207.80 pounds Caden F Ori Height Measured 2023-01-10 16:24:00 64.00 inches Caden F Ori Body Temperature 2023-01-10 16:24:00 98.40 degrees Caden F Ori Heart Rate 2023-01-10 16:24:00 92.00 /min Geetha en F Ori Respiratory Rate 2023-01-10 16:24:00 18.00 /min Caden F Ori BP Systolic 2022-05-07 15:30:00 139 mm[Hg] Step hen F Ori BP Diastolic 2022-05-07 15:30:00 87 mm[Hg] Tobias phen F Ori Weight Measured 2022-05-07 15:30:00 208.80 pounds Caden F Ori Height Measured 2022-05-07 15:30:00 64.00 inches Caden F Ori Body Temperature 2022-05-07 15:30:00 98.20 degrees Caden F Ori Heart Rate 2022-05-07 15:30:00 97.00 /min Geetha en F Ori Respiratory Rate 2022-05-07 15:30:00 18.00 /min Caden F Ori BP Systolic 2022-03-04 09:29:00 126 mm[Hg] Step hen F Ori BP Diastolic 2022-03-04 09:29:00 86 mm[Hg] Tobias phen F Ori Weight Measured 2022-03-04 09:29:00 212.20 pounds Caden F Ori Height Measured 2022-03-04 09:29:00 64.00 inches Caden F Ori Body Temperature 2022-03-04 09:29:00 97.20 degrees Caden F Ori Heart Rate 2022-03-04 09:29:00 94.00 /min Geetha en F Ori Respiratory Rate 2022-03-04 09:29:00 17.00 /min Caden F Ori BP Systolic 2022-02-18 09:32:00 161 mm[Hg] Step hen F Ori BP Diastolic 2022-02-18 09:32:00 87 mm[Hg] Tobias phen F Ori Weight Measured 2022-02-18 09:32:00 212.20 pounds Caden F Ori Height Measured 2022-02-18 09:32:00 64.00 inches Caden F Ori Body Temperature 2022-02-18 09:32:00 Caden F Ori Heart Rate 2022-02-18 09:32:00 107.00 /min Step hen F Ori Respiratory Rate 2022-02-18 09:32:00 17.00 /min Caden F Ori BP Systolic 2022-02-04 10:31:00 131 mm[Hg] Step hen F Ori BP Diastolic 2022-02-04 10:31:00 86 mm[Hg] Tobias phen F Ori Weight Measured 2022-02-04 10:31:00 208.00 pounds Caden F Ori Height Measured 2022-02-04 10:31:00 64.00 inches Caden F Ori Body Temperature 2022-02-04 10:31:00 Caden F Ori Heart Rate 2022-02-04 10:31:00 95.00 /min Geetha en F Ori Respiratory Rate 2022-02-04 10:31:00 Caden F Ori BP Systolic 2022-01-21 09:23:00 140 mm[Hg] Step hen F Ori BP Diastolic 2022-01-21 09:23:00 85 mm[Hg] Tobias phen F Ori Weight Measured 2022-01-21 09:23:00 208.00 pounds Caden F Ori Height Measured 2022-01-21 09:23:00 64.00 inches Caden F Ori Body Temperature 2022-01-21 09:23:00 Caden F Ori Heart Rate 2022-01-21 09:23:00 114.00 /min Step hen F Ori Respiratory Rate 2022-01-21 09:23:00 Caden F Ori BP Systolic 2022-01-14 09:37:00 Step hen F Ori BP Diastolic 2022-01-14 09:37:00 Tobias phen F Ori Weight Measured 2022-01-14 09:37:00 Caden F Ori Height Measured 2022-01-14 09:37:00 Caden Michael Rehman Body Temperature 2022-01-14 09:37:00 Caden F Ori Heart Rate 2022-01-14 09:37:00 Geetha en F Ori Respiratory Rate 2022-01-14 09:37:00 Cadenshlomo Rehman BP Systolic 2022-01-14 09:21:00 130 mm[Hg] Step hen F Ori BP Diastolic 2022-01-14 09:21:00 80 mm[Hg] Tobias phen F Ori Weight Measured 2022-01-14 09:21:00 208.00 pounds Caden Rehman Height Measured 2022-01-14 09:21:00 64.00 inches Caden Rehman Body Temperature 2022-01-14 09:21:00 Caden F Ori Heart Rate 2022-01-14 09:21:00 89.00 /min Geetha en F Ori Respiratory Rate 2022-01-14 09:21:00 Cadenshlomo Rehman BP Systolic 2022-01-07 09:47:00 138 mm[Hg] Step hen F Ori BP Diastolic 2022-01-07 09:47:00 92 mm[Hg] Tobias phen F Ori Weight Measured 2022-01-07 09:47:00 208.60 pounds Caden Rehman Height Measured 2022-01-07 09:47:00 64.00 inches Caden Rehman Body Temperature 2022-01-07 09:47:00 Caden Rehman Heart Rate 2022-01-07 09:47:00 98.00 /min Geetha en F Ori Respiratory Rate 2022-01-07 09:47:00 Caden Rehman BP Systolic 2021-12-17 10:07:00 172 mm[Hg] BP [...] 16.00 /min Procedures Procedure Date / Time Performed Performing Clinician Source XR FOOT 3+ VW RIGHT 2023-10-03 22:36:07 Grant Rush [facility] ASSIGNMENT OF BENEFITS 2023-10-03 21:58:45 Docto r Unassigned, [place] [facility] CONSENT/REFUSAL FOR DIAGNOSIS AND TREATMENT 2023-10-03 21:10:10 Doctor Unassigned, [place] [facility] [id number] 2021-12-23 00:00:00 VUCHR.01 [facility] XR FOOT <3 VW LEFT 2021-12-17 19:51:21 Devendra Cui [facility] COMP. METABOLIC PANEL (77308) 2021-12-17 19:27:00 Esha Cui [facility] SEDIMENTATION RATE 2021-12-17 19:27:00 Devendra Cui [facility] CBC WITH DIFF 2021-12-17 19:27:00 [facility] OF PRIVACY PRACTICES 2021-11-28 20:25:48 Doctor Unassigned, [place] [facility] CONSENT/REFUSAL FOR DIAGNOSIS AND TREATMENT 2021-11-28 20:25:33 Doctor Unassigned, [place] [facility] DISCLOSURE AND CONSENT, MEDICAL AND SURGICAL PROCEDURES 2020-09-11 05:01:00 Doctor Unassigned, [place] [facility] CONSENT/REFUSAL FOR DIAGNOSIS AND TREATMENT 2020-08-21 16:23:25 Doctor Unassigned, [place] [facility] Plan of Care Planned Activity Planned Date Details Comments Source Goal Plan of Care Note [code = 88927-1] Goal Plan of Care Note [code = 88690-8] Goal Plan of Care Note [code = 90098-3] Goal Plan of Care Note [code = 00399-7] Goal Plan of Care Note [code = 51299-9] Goal Plan of Care Note [code = 51940-1] Goal Plan of Care Note [code = 30151-9] Goal Plan of Care Note [code = 74776-4] Goal Plan of Care Note [code = 16394-9] Goal Plan of Care Note [code = 15130-9] Goal Plan of Care Note [code = 40168-9] Goal Plan of Care Note [code = 62612-4] Goal Plan of Care Note [code = 40809-0] Goal Plan of Care Note [code = 49717-1] Goal Plan of Care Note [code = 82570-3] Goal Plan of Care Note [code = 25296-7] Goal Plan of Care Note [code = 00626-7] Goal Plan of Care Note [code = 72001-9] Goal Plan of Care Note [code = 24082-6] Goal Plan of Care Note [code = 22052-4] Goal Plan of Care Note [code = 84155-1] Goal Plan of Care Note [code = 98043-5] Goal Plan of Care Note [code = 36219-2] Goal Plan of Care Note [code = 30382-2] Goal Plan of Care Note [code = 29100-4] Goal Plan of Care Note [code = 46772-3] Goal Plan of Care Note [code = 73341-6] Goal Plan of Care Note [code = 85294-1] Goal Plan of Care Note [code = 10427-6] Goal Plan of Care Note [code = 40800-4] Goal Plan of Care Note [code = 47822-2] Goal Plan of Care Note [code = 28037-0] Goal Plan of Care Note [code = 03963-2] Goal Plan of Care Note [code = 00487-6] Goal Plan of Care Note [code = 24765-0] Goal Plan of Care Note [code = 26079-3] Goal Plan of Care Note [code = 83482-4] Goal Plan of Care Note [code = 99278-0] Goal Plan of Care Note [code = 60872-5] Goal Plan of Care Note [code = 07415-6] Goal Plan of Care Note [code = 03529-2] Goal Plan of Care Note [code = 67224-2] Goal Plan of Care Note [code = 23052-7] Goal Plan of Care Note [code = 33750-8] Goal Plan of Care Note [code = 35904-3] Goal Plan of Care Note [code = 86019-2] Goal Plan of Care Note [code = 94417-1] Goal Plan of Care Note [code = 80720-8] Goal Plan of Care Note [code = 42696-1] Goal Plan of Care Note [code = 83215-7] Goal Plan of Care Note [code = 29879-5] Goal Plan of Care Note [code = 17724-6] Goal Plan of Care Note [code = 19508-9] Goal Plan of Care Note [code = 84940-6] Goal Plan of Care Note [code = 36060-0] Goal Plan of Care Note [code = 82674-0] Goal Plan of Care Note [code = 10127-3] Goal Plan of Care Note [code = 15059-3] Goal Plan of Care Note [code = 44572-8] Goal Plan of Care Note [code = 66958-0] Goal Plan of Care Note [code = 51148-5] Goal Plan of Care Note [code = 98913-5] Goal Plan of Care Note [code = 74931-3] Goal Plan of Care Note [code = 17471-6] Goal Plan of Care Note [code = 41467-4] Goal Plan of Care Note [code = 06155-3] Goal Plan of Care Note [code = 14721-9] Goal Plan of Care Note [code = 74483-2] Goal Plan of Care Note [code = 92087-9] Goal Plan of Care Note [code = 36403-3] Goal Plan of Care Note [code = 77096-0] Goal Plan of Care Note [code = 42183-2] Goal Plan of Care Note [code = 76675-8] Goal Plan of Care Note [code = 71795-1] Goal Plan of Care Note [code = 92081-7] Goal Plan of Care Note [code = 40060-8] Goal Plan of Care Note [code = 47201-2] Goal Plan of Care Note [code = 95018-2] Goal Plan of Care Note [code = 03371-0] Goal Plan of Care Note [code = 31482-3] Goal Plan of Care Note [code = 04782-4] Goal Plan of Care Note [code = 04277-5] Goal Plan of Care Note [code = 95889-1] Goal Plan of Care Note [code = 35212-5] Encounters Start Date/Time End Date/Time Encounter Type Admission Type Attending [facility] Facility Care Department Encounter ID Source 2024-10-22 14:41:57 2024-10-22 14:41:57 Outpatient [facility] [id number] Caden Rehman 2024-10-22 00:00:00 2024-10-22 00:00:[address] [facility] [id number] Caden Rehman 2024-04-29 16:24:24 2024-04-29 16:24:24 Outpatient [facility] [id number] Caden Rehman 2024-04-29 00:00:00 2024-04-29 00:00:[address] [facility] [id number] Caden Rehman 2023-10-03 15:23:00 2023-10-03 17:49:00 [id number] 2023-10-03 15:23:00 2023-10-03 17:49:00 Emergency Lee, [facility] 1.2.840.114 350.1.13.10 4.2.7.2.686 [id number] [facility] 2023-09-15 00:00:00 2023-09-15 00:00:00 Outpatient GC_[id number] diyala_S [facility] [id number] [facility] 2023-07-21 16:08:08 2023-07-21 16:08:08 Outpatient [facility] [id number] Caden Rehman 2023-01-10 16:09:17 2023-01-10 16:09:17 Outpatient [facility] [id number] Caden Rehman 2022-12-28 10:32:22 2022-12-28 10:32:22 Outpatient [facility] [id number] Caden Rehman 2022-11-05 10:07:32 2022-11-05 10:07:[address] [facility] [id number] Caden Rehman 2022-10-29 00:00:00 2022-10-29 00:00:00 Outpatient Visit [id number] 2022-07-27 00:00:00 2022-07-27 00:00:00 Outpatient Visit [id number] 2021-12-18 00:48:00 2021-12-23 15:45:00 Emergency EM Lorena Mclain [facility] MEDI.01 [id number] [facility] 2021-12-17 23:10:00 2021-12-17 23:10:00 Outpatient EDDOC, GENERIC HCACL LABO [id number] [facility] 2021-12-17 12:27:00 2021-12-17 14:57:00 Emergency X ESHA CUI [facility] ERT [id number] [facility] 2021-12-17 12:27:00 2021-12-17 14:57:00 Emergency Esha Cui [facility] [id number] 350.1.13.10 4.2.7.2.686 [id number] [facility] 2021-11-28 14:37:00 2021-11-28 18:08:00 Emergency X VIVIANE MCKEON [facility] ERT [id number] [facility] 2021-11-28 14:37:00 2021-11-28 18:08:00 Emergency Mckeon, Viviane [facility] 1.284.114 350.1.13.10 4.2.7.2.686 [id number] [facility] 2021-11-28 00:00:00 2021-11-28 00:00:00 Orders Only Doctor Unassigned, [place] [facility] 1.2840.114 350.1.13.10 4.2.7.2.686 [id number] [facility] 2021-07-02 13:00:00 2021-07-02 13:00:00 Outpatient FRANK BERG SHINDDemetrio [facility] [id number] [facility] 2021-02-04 00:00:00 2021-02-04 00:00:00 Patient Outreach Edgardo Jim [facility] 1.2840.114 350.1.13.10 4.2.7.2.686 [id number] [facility] 2020-11-26 13:01:30 2020-11-26 13:34:48 Office Visit Frank Sampson [facility] 1.840.114 350.1.13.10 4.2.7.2.686 [id number] [facility] 2020-11-26 12:40:00 2020-11-26 12:40:00 Outpatient FRANK BERG SHIWAN [facility] [id number] [facility] 2020-09-25 10:15:00 2020-09-25 10:15:00 Outpatient MO MOSES [facility] [id number] [facility] 2020-09-11 10:55:38 2020-09-11 13:16:44 Office Visit Mo Quintero Rm, Adc Surg Spec Procedure [facility] 1..840.114 350.1.13.10 4.2.7.2.686 [id number] [facility] 2020-09-11 10:45:00 2020-09-11 10:45:00 Outpatient Reba MO QUINTERO [facility] [id number] [facility] 2020-09-11 00:00:00 2020-09-11 00:00:00 Orders Only Doctor Unassigned, [place] [facility] [id number] 350.1.13.10 4.2.7.2.686 [id number] [facility] 2020-09-04 10:15:26 2020-09-04 11:26:31 [facility] 1.84.114 350.1.13.10 4.2.7.2.686 [id number] [facility] 2020-09-04 10:00:00 2020-09-04 10:00:00 Outpatient Reba QUINTEROMO [facility] [id number] [facility] 2020-08-21 11:24:26 2020-08-21 12:03:34 Office Visit [facility] Sampson [facility] 1.84.114 350.1.13.10 4.2.7.2.686 [id number] [facility] 2020-08-21 11:20:00 2020-08-21 11:20:00 Outpatient R FRANK SAMPSON SHINDDemetrio [facility] [id number] [facility] 2020-08-21 00:00:00 2020-08-21 00:00:00 Orders Only Doctor Unassigned, [place] [facility] 1..114 350.1.13.10 4.2.7.2.686 [id number] [facility] Results Test Description Test Time Test Comments Results Result Co mments Source HEMOGLOBIN [id number] 02:57:16* Test Item Value Reference Range Interpretation Comme nts HEMOGLOBIN A1c (test code = 77148) 10.8 % 4.2-5.6 H [employer] GUIDELINES FOR HGB A1C: PREDIABETES/INCREASED RISK . . . . . . . 5.7-6.4% DIAGNOSIS OF DIABETES . . . . . . . . . >=6.5% WITH CONFIRMATION OR APPROPRIATE SYMPTOMS NOTE: ASSAY MAY BE AFFECTED BY HEMOGLOBINOPATHIES (SICKLE CELL ANEMIA, S-C DISEASE, OTHERS) OR ARTIFICIALLY LOWERED BY DECREASED RED CELL SURVIVAL (HEMOLYTIC ANEMIAS, BLOOD LOSS, ETC.). CONSIDER ALTERNATE TESTING OR LABORATORY CONSULTATION. HEMOGLOBIN [id number] 00:00:00* Test Item Value Reference Range Interpretation Comme [facility] HEMOGLOBIN A1c (test code = 39184) 10.8 % Caden Rodriguez AustinALBUMIN/CREATININE RATIO, RANDOM [id number] 00:00:00* Test Item Value Reference Range Interpretation Comme [facility] CREATININE, URINE, CONC. (te st code = 2072) 49.9 MG/DL ALBUMIN, URINE, RANDOM (test code = 37090) 4.1 MG/DL CALC ALBUMIN/CREAT, RND (travis t code = 40114) 82 MG/G Caden RehmanHEMOGLOBIN [id number] 00:00:00* Test Item Value Reference Range Interpretation Comme [facility] HEMOGLOBIN A1c (test code = 33648) 10.8 % Caden Rodriguez AustinALBUMIN/CREATININE RATIO, RANDOM [id number] 00:00:00* Test Item Value Reference Range Interpretation Comme vince CREATININE, URINE, CONC. (te st code = 2072) 49.9 MG/DL ALBUMIN, URINE, RANDOM (test code = 10000) 4.1 MG/DL CALC ALBUMIN/CREAT, RND (travis t code = 70205) 82 MG/G Caden RehmanCOMPREHENSIVE METABOLIC [id number] 01:19:35* Test Item Value Reference Range Interpretation Comme nts GLUCOSE (test code = 2217) 209 MG/DL 70-99 H BUN (test code = 2208) 13 MG/DL 6-20 CREATININE (test code = 2214) 0.56 MG/DL 0.60-1.30 L eGFR (2020 CKD-EPI) (test code = 52277) 116 ML/MIN/1.73 >60 CALC BUN/CREAT (test code = 223) 23 RATIO 6-28 SODIUM (test code = 223) 142 MEQ/L 133-146 POTASSIUM (test code = 2228) 4.0 MEQ/L 3.5-5.4 CHLORIDE (test code = 2215) 105 MEQ/L 95-107 CARBON DIOXIDE (test code = 2206) 27 MEQ/L 19-31 CALCIUM (test code = 2208) 9.4 MG/DL 8.5-10.5 PROTEIN, TOTAL (test code = 2228) 7.5 G/DL 6.1-8.3 ALBUMIN (test code = 2200) 4.1 G/DL 3.5-5.2 CALC GLOBULIN (test code = 2240) 3.4 G/DL 1.9-3.7 CALC A/G RATIO (test code = 2233) 1.2 RATIO 1.0-2.6 BILIRUBIN, TOTAL (test code = 2206) 0.4 MG/DL See_Comment [Automated me ssage] The system which generated this result transmitted reference range: <=1.2. The reference range was not used to interpret this result as normal/abnormal. ALKALINE PHOSPHATASE (test code = 2203) 132 U/L 40-113 H AST (test code = 2218) 18 U/L 9-40 ALT (test code = 2219) 19 U/L 5-40 LIPID [id number] 01:19:35* Test Item Value Reference Range Interpretation Comme nts CHOLESTEROL (test code = 2210) 173 MG/DL <200 TRIGLYCERIDES (test code = 2232) 122 MG/DL <150 HDL CHOLESTEROL (test code = 2220) 63 MG/DL >39 CALC LDL CHOL (test code = 223) 88 MG/DL <100 NOTE: CALCULATED LDL IS BASED ON STEVIE-RIOS METHOD WHICHINCLUDES ADJUSTABLE TRIGLYCERIDE:VLDL CHOLESTEROL RATIO.THIS FACTOR VARIES BY MEASURED TRIGLYCERIDE AND NON-HDLCHOLESTEROL CONCENTRATIONS WITH INCREASED CALCULATED LDL SEENIN HIGHER TRIGLYCERIDE OR LOWER NON-HDL SPECIMENS. FOR MOREINFORMATION, SEE CLIENT ANNOUNCEMENT AT [email or web address] RISK RATIO LDL/HDL (test code = 2238) 1.40 RATIO <3.22 COMPREHENSIVE METABOLIC [id number] 00:00:00* Test Item Value Reference Range Interpretation Comme nts GLUCOSE (test code = 2217) 209 MG/DL BUN (test code = 2208) 13 MG/DL CREATININE (test code = 2214) 0.56 MG/DL eGFR (2020 CKD-EPI) (test code = 59924) 116 ML/MIN/1.73 CALC BUN/CREAT (test code = 2235) 23 RATIO SODIUM (test code = 2231) 142 MEQ/L POTASSIUM (test code = 2228) 4.0 MEQ/L CHLORIDE (test code = 2215) 105 MEQ/L CARBON DIOXIDE (test code = 2206) 27 MEQ/L CALCIUM (test code = 2209) 9.4 MG/DL PROTEIN, TOTAL (test code = 2229) 7.5 G/DL ALBUMIN (test code = 2201) 4.1 G/DL CALC GLOBULIN (test code = 2240) 3.4 G/DL CALC A/G RATIO (test code = 2234) 1.2 RATIO BILIRUBIN, TOTAL (test code = 2207) 0.4 MG/DL ALKALINE PHOSPHATASE (test code = 2204) 132 U/L AST (test code = 2218) 18 U/L ALT (test code = 2219) 19 U/L Caden Michael HoustonLIPID [id number] 00:00:00* Test Item Value Reference Range Interpretation Comme nts CHOLESTEROL (test code = 2210) 173 MG/DL TRIGLYCERIDES (test code = 2232) 122 MG/DL HDL CHOLESTEROL (test code = 2220) 63 MG/DL CALC LDL CHOL (test code = 2237) 88 MG/DL RISK RATIO LDL/HDL (test cod e = 2238) 1.40 RATIO Caden Rodriguez OriCOMPREHENSIVE METABOLIC [id number] 00:00:00* Test Item Value Reference Range Interpretation Comme nts GLUCOSE (test code = 2217) 209 MG/DL BUN (test code = 2208) 13 MG/DL CREATININE (test code = 2214) 0.56 MG/DL eGFR (2020 CKD-EPI) (test code = 97628) 116 ML/MIN/1.73 CALC BUN/CREAT (test code = 2235) 23 RATIO SODIUM (test code = 2231) 142 MEQ/L POTASSIUM (test code = 2228) 4.0 MEQ/L CHLORIDE (test code = 2215) 105 MEQ/L CARBON DIOXIDE (test code = 2206) 27 MEQ/L CALCIUM (test code = 2209) 9.4 MG/DL PROTEIN, TOTAL (test code = 2229) 7.5 G/DL ALBUMIN (test code = 2201) 4.1 G/DL CALC GLOBULIN (test code = 2240) 3.4 G/DL CALC A/G RATIO (test code = 2234) 1.2 RATIO BILIRUBIN, TOTAL (test code = 2207) 0.4 MG/DL ALKALINE PHOSPHATASE (test code = 2204) 132 U/L AST (test code = 2218) 18 U/L ALT (test code = 2219) 19 U/L Caden Rodriguez AustinLIPID [id number] 00:00:00* Test Item Value Reference Range Interpretation Comme nts CHOLESTEROL (test code = 2210) 173 MG/DL TRIGLYCERIDES (test code = 2232) 122 MG/DL HDL CHOLESTEROL (test code = 2220) 63 MG/DL CALC LDL CHOL (test code = 2237) 88 MG/DL RISK RATIO LDL/HDL (test cod e = 2238) 1.40 RATIO Caden RehmanHEMOGLOBIN [id number] 03:49:54* Test Item Value Reference Range Interpretation Comme nts HEMOGLOBIN A1c (test code = 88668) 11.6 % 4.2-5.6 H [employer] GUIDELINES FOR HGB A1C: PREDIABETES/INCREASED RISK . . . . . . . 5.7-6.4% DIAGNOSIS OF DIABETES . . . . . . . . . >=6.5% WITH CONFIRMATION OR APPROPRIATE SYMPTOMS NOTE: ASSAY MAY BE AFFECTED BY HEMOGLOBINOPATHIES (SICKLE CELL ANEMIA, S-C DISEASE, OTHERS) OR ARTIFICIALLY LOWERED BY DECREASED RED CELL SURVIVAL (HEMOLYTIC ANEMIAS, BLOOD LOSS, ETC.). CONSIDER ALTERNATE TESTING OR LABORATORY CONSULTATION. UNLESS OTHERWISE INDICATED, ALL TESTING PERFORMED [facility] [address] [place] [address] BEEF KILLER: RUDY AMOR M.D. CLIA NUMBER [id number] [facility] [place] [place]. [id number] CBC W/AUTO DIFF WITH [id number] 03:15:27* Test Item Value Reference Range Interpretation Comme nts WBC (test code = 1001) 6.6 K/UL 3.5-11.0 RBC (test code = 1002) 4.81 M/UL 3.80-5.40 HEMOGLOBIN (test code = 1003) 13.8 G/DL 11.5-15.5 HEMATOCRIT (test code = 1004) 41.6 % 34.0-45.0 MCV (test code = 1005) 86.5 fL 80.0-99.0 MCH (test code = 1006) 28.7 PG 25.0-33.0 MCHC (test code = 1007) 33.2 G/DL 31.0-36.0 RDW (test code = 1038) 12.6 % 11.5-15.0 NEUTROPHILS (test code = 1008) 53.9 % LYMPHOCYTES (test code = 1010) 35.4 % MONOCYTES (test code = 1011) 8.3 % EOSINOPHILS (test code = 1012) 1.1 % BASOPHILS (test code = 1013) 0.5 % IMMATURE GRANULOCYTES (test code = 1036) 0.8 % NUCLEATED RBCS (test code = 1065) 0.0 /100 WBC'S See_Comment [Automated Sense of Skina ge] The system which generated this result transmitted reference range: 0.0. The reference range was not used to interpret this result as normal/abnormal. PLATELET COUNT (test code = 1015) 235 K/UL 130-400 ABSOLUTE NEUTROPHILS (test code = 1066) 3.56 K/UL 1.50-7.50 ABSOLUTE LYMPHOCYTES (test code = 1067) 2.33 K/UL 1.00-4.00 ABSOLUTE MONOCYTES (test code = 1068) 0.55 K/UL 0.20-1.00 ABSOLUTE EOSINOPHILS (test code = 1040) 0.07 K/UL 0.00-0.50 ABSOLUTE BASOPHILS (test code = 1069) 0.03 K/UL 0.00-0.20 ABS IMMATURE GRANULOCYTES (test code = 1020) 0.05 K/UL 0.00-0.10 ABS NUCLEATED RBCS (test code = 74144) 0.00 K/UL 0.00-0.11 HEMOGLOBIN [id number] 00:00:00* Test Item Value Reference Range Interpretation Comme nts HEMOGLOBIN A1c (test code = 81226) 11.6 % [facility] [id number] 00:00:00* Test Item Value Reference Range Interpretation Comme nts WBC (test code = 1001) 6.6 K/UL RBC (test code = 1002) 4.81 M/UL HEMOGLOBIN (test code = 1003) 13.8 G/DL HEMATOCRIT (test code = 1004) 41.6 % MCV (test code = 1005) 86.5 fL MCH (test code = 1006) 28.7 PG MCHC (test code = 1007) 33.2 G/DL RDW (test code = 1038) 12.6 % NEUTROPHILS (test code = 1008) 53.9 % LYMPHOCYTES (test code = 1010) 35.4 % MONOCYTES (test code = 1011) 8.3 % EOSINOPHILS (test code = 1012) 1.1 % BASOPHILS (test code = 1013) 0.5 % IMMATURE GRANULOCYTES (test code = 1036) 0.8 % NUCLEATED RBCS (test code = 1065) 0.0 /100WBC'S PLATELET COUNT (test code = 1015) 235 K/UL ABSOLUTE NEUTROPHILS (test c ode = 1066) 3.56 K/UL ABSOLUTE LYMPHOCYTES (test c ode = 1067) 2.33 K/UL ABSOLUTE MONOCYTES (test cod e = 1068) 0.55 K/UL ABSOLUTE EOSINOPHILS (test c ode = 1040) 0.07 K/UL ABSOLUTE BASOPHILS (test cod e = 1069) 0.03 K/UL ABS IMMATURE GRANULOCYTES (t est code = 1020) 0.05 K/UL ABS NUCLEATED RBCS (test cod e = 02310) 0.00 K/UL Caden RehmanHEMOGLOBIN [id number] 00:00:00* Test Item Value Reference Range Interpretation Comme nts HEMOGLOBIN A1c (test code = 71984) 11.6 % Caden RehmanCBC W/AUTO [id number] 00:00:00* Test Item Value Reference Range Interpretation Comme nts WBC (test code = 1001) 6.6 K/UL RBC (test code = 1002) 4.81 M/UL HEMOGLOBIN (test code = 1003) 13.8 G/DL HEMATOCRIT (test code = 1004) 41.6 % MCV (test code = 1005) 86.5 fL MCH (test code = 1006) 28.7 PG MCHC (test code = 1007) 33.2 G/DL RDW (test code = 1038) 12.6 % NEUTROPHILS (test code = 1008) 53.9 % LYMPHOCYTES (test code = 1010) 35.4 % MONOCYTES (test code = 1011) 8.3 % EOSINOPHILS (test code = 1012) 1.1 % BASOPHILS (test code = 1013) 0.5 % IMMATURE GRANULOCYTES (test code = 1036) 0.8 % NUCLEATED RBCS (test code = 1065) 0.0 /100WBC'S PLATELET COUNT (test code = 1015) 235 K/UL ABSOLUTE NEUTROPHILS (test c ode = 1066) 3.56 K/UL ABSOLUTE LYMPHOCYTES (test c ode = 1067) 2.33 K/UL ABSOLUTE MONOCYTES (test cod e = 1068) 0.55 K/UL ABSOLUTE EOSINOPHILS (test c ode = 1040) 0.07 K/UL ABSOLUTE BASOPHILS (test cod e = 1069) 0.03 K/UL ABS IMMATURE GRANULOCYTES (t est code = 1020) 0.05 K/UL ABS NUCLEATED RBCS (test cod e = 54274) 0.00 K/UL [facility]CH[facility] [id number] 16:54:00* Test Item Value Reference Range Interpretation Comme nts SOFT TISSUE (test code = SOFTISSUE) RUN DATE: 12/24/21 Villisca Lumiary [facility] PAGE 1 RUN TIME: 1655 Specimen Inquiry RUN USER: INTERFACE PATIENT: GLENNA HUBBARD LOC: GUY U #: [id number] AGE/SX: 41/F [facility] DR: Lorena Mclain MSN : [birth year] BED: A DIS: 12/23/21 STATUS: DIS IN TLOC: SPEC #: [id number] RECD: 12/23/21 STATUS: DARRION REJohn #: [id number] TEO: 12/23/[address]: Grant Laguna DPSavanah ENTERED: 12/23/21 SP TYPE: SOFT MASS OTHR DR: Benjamin Ramirez MD, Padmaja Pam MD Young, Lauren E NPORDERED: GROSS COPIES TO: Benjamin Ramirez MD [address] [place] [address] Amelia Herr MD [address] [place] [address] Grant Laguna DPM [address] [id number] Rekha Lucio NP [address] [place] [address] PROCEDURES: GROSS (12/24/21) TISSUES: LEFT FOOT - SOFT TISSUE CLINICAL HISTORY COLLECTION DATE: 12/23/21 LEFT FOOT INFECTED NEUROPATHIC ULCER FINAL DIAGNOSIS Left foot, soft tissue, removal of devitalized soft tissues: SKIN AND SUBCUTANEOUS ADIPOSE TISSUE WITH EXTENSIVE NECROSIS AND ACUTE INFLAMMATION DMW/sm CONTINUED ON NEXT PAGE RUN DATE: 12/24/21 [facility] PAGE 2 RUN TIME: 1655 Specimen Inquiry RUN USER: INTERFACE SPEC #: [id number] PATIENT: GLENNA HUBBARD #[id number] (Continued) --- FINAL DIAGNOSIS (Continued) D 24053 MACROSCOPIC The specimen is received in formalin, [...] in a single cassette. GROSS PERFORMED AT [facility] [address] [place] [address] (p)[phone] MICROSCOPIC All of the stains, including any controls performed, stain appropriately. MICROSCOPIC PERFORMED AT [facility] [address] [place] [address] (p)[phone] PERFORMING SITE Diagnosis performed at: [facility], [place] [address] [place] [address] ---- Signed SIGNATURE ON FILE Radhika Yuen MD 12/24/21 1654 END OF REPORT [id number] 11:14:00* Test Item Value Reference Range Interpretation Comme nts GLUBED (test code = GLUBED) 121 mg/dL 74-106 H Performed by cer tified tube closing machine operator at [facility] [id number] 06:21:00* Test Item Value Reference Range Interpretation Comme nts CREATININE (test code = CREAT) 0.70 mg/dL 0.55-1.02 N Note change in reference range due to change in reagent. [id number] 05:40:00* Test Item Value Reference Range Interpretation Comme nts GLUBED (test code = GLUBED) 169 mg/dL 74-106 H Performed by cer tified tube closing machine operator at [facility] BASIC METABOLIC [id number] 00:54:00* Test Item Value Reference Range Interpretation Comme nts SODIUM (test code = NA) 139 mmol/L 136-145 N POTASSIUM (test code = K) 3.7 mmol/L 3.5-5.1 N CHLORIDE (test code = CL) 105.0 mmol/L 98-107 N CARBON DIOXIDE (test code = CO2) 26.0 mmol/L 21-32 N ANION GAP (test code = GAP) 11.7 10-20 N GLUCOSE (test code = GLU) 148 mg/dL 74-106 H BLOOD UREA NITROGEN (test code = BUN) 14 mg/dL 7-18 N GLOMERULAR FILTRATION RATE (test code = GFR) > 60 mL/min See_Comment Estimated GFR by using Modified MDRD formula.Chronic kidney disease is defined as either kidney damageor GFR <60 mL/min/1.73 m2 for >3 months. [Automated message] The system which generated this result transmitted reference range: >=60. The reference range was not used to interpret this result as normal/abnormal. CREATININE (test code = CREAT) 0.70 mg/dL 0.55-1.02 N Note change in reference range due to change in reagent. BUN/CREATININE RATIO (test code = BUN/CREA) 19.4 10-20 N CALCIUM (test code = CA) 8.5 mg/dL 8.5-10.1 N CBC W/AUTO [id number] 00:44:00* Test Item Value Reference Range Interpretation Comme nts WHITE BLOOD CELL (test code = WBC) 8.2 K/mm3 4.5-12.5 N RED BLOOD CELL (test code = RBC) 4.67 mill/mm3 3.7-5.2 N HEMOGLOBIN (test code = HGB) 13.5 gram/dL 11.5-15.5 N HEMATOCRIT (test code = HCT) 40.8 % 36.0-46.0 N MEAN CELL VOLUME (test code = MCV) 87.4 fL 80-98 N MEAN CELL HGB (test code = MCH) 28.9 picogram 27.0-33.0 N MEAN CELL HGB CONCETRATION (test code = MCHC) 33.1 gram/dL 33.0-36.0 N RED CELL DISTRIBUTION WIDTH (test code = RDW) 12.5 % 11.6-16.2 N RED CELL DISTRIBUTION WIDTH SD (test code = RDW-SD) 39.6 fL 37.0-51.0 N PLATELET COUNT (test code = PLT) 206 K/mm3 150-450 N MEAN PLATELET VOLUME (test c ode = MPV) 12.0 fL 6.7-11.0 H NEUTROPHIL % (test code = NT%) 55.7 % 39.0-69.0 N IMMATURE GRANULOCYTE % (test code = IG%) 0.9 % 0.0-5.0 N LYMPHOCYTE % (test code = LY%) 32.0 % 25.0-55.0 N MONOCYTE % (test code = MO%) 9.1 % 0.0-10.0 N EOSINOPHIL % (test code = EO%) 1.8 % 0.0-5.0 N BASOPHIL % (test code = BA%) 0.5 % 0.0-1.0 N NUCLEATED RBC % (test code = NRBC%) 0.0 % 0-0 N NEUTROPHIL # (test code = NT#) 4.57 K/mm3 1.8-7.7 N IMMATURE GRANULOCYTE # (test code = IG#) 0.07 x10 3/uL 0-0.03 H LYMPHOCYTE # (test code = LY#) 2.62 K/mm3 1.0-5.0 N MONOCYTE # (test code = MO#) 0.75 K/mm3 0-0.8 N EOSINOPHIL # (test code = EO#) 0.15 K/mm3 0.0-0.5 N BASOPHIL # (test code = BA#) 0.04 K/mm3 0.0-0.2 N NUCLEATED RBC # (test code = NRBC#) 0.00 K/mm3 0.0-0.1 N MANUAL DIFF REQUIRED (test c ode = MDIFF) NO [id number] 22:20:00* Test Item Value Reference Range Interpretation Comme nts GLUBED (test code = GLUBED) 134 mg/dL 74-106 H Performed by cer tified tube closing machine operator at [facility] [id number] 16:54:00* Test Item Value Reference Range Interpretation Comme nts GLUBED (test code = GLUBED) 170 mg/dL 74-106 H Performed by cer tified tube closing machine operator at [facility] [id number] 12:13:00* Test Item Value Reference Range Interpretation Comme nts GLUBED (test code = GLUBED) 174 mg/dL 74-106 H Performed by cer tified tube closing machine operator at [facility] [id number] 08:09:00* Test Item Value Reference Range Interpretation Comme nts GLUBED (test code = GLUBED) 122 mg/dL 74-106 H Performed by cer tified tube closing machine operator at [facility] [id number] 06:29:00* Test Item Value Reference Range Interpretation Comme nts GLUBED (test code = GLUBED) 147 mg/dL 74-106 H Performed by cer tified tube closing machine operator at [facility] [id number] 21:14:00* Test Item Value Reference Range Interpretation Comme nts GLUBED (test code = GLUBED) 233 mg/dL 74-106 H Performed by cer tified tube closing machine operator at [facility] [id number] 15:42:00* Test Item Value Reference Range Interpretation Comme nts GLUBED (test code = GLUBED) 136 mg/dL 74-106 H Performed by cer tified tube closing machine operator at [facility] [id number] 11:52:00* Test Item Value Reference Range Interpretation Comme nts GLUBED (test code = GLUBED) 208 mg/dL 74-106 H Performed by cer tified tube closing machine operator at [facility] [id number] 09:02:00* Test Item Value Reference Range Interpretation Comme nts GLUBED (test code = GLUBED) 186 mg/dL 74-106 H Performed by cer tified tube closing machine operator at [facility] - MRI LOW EXT W WO CONT [id number] 08:51:00 [facility])Name: GLENNA HUBBARD : 1980 Sex: F FAX: Benjamin Ramirez MD [phone] [place]: B St: ADM FAX: Amelia Herr FAX: Siddharth Heaton NP [phone] Name: GLENNA HUBBARD [facility] : 1980 Age/S: 41/F [address] Unit #: [id number] Loc: [id number] [place] [address] Phys: Siddharth Heaton NP Acct: [id number] Dis Date: Status: ADM IN PHONE #: [phone] Exam Date: 12/20/20211823 FAX #: [phone] Reason: foot diabetic ulcer, left EXAMS: CPT CODE: [id number] [place] [address] HISTORY: Diabetic foot ulcer. COMPARISON: X-ray from December 17, 2021. Location: [facility]. MRI left foot with without contrast: Diffuse edema of the entire fourth metatarsal bone with slight irregularity of the distal fourth metatarsal. It is extensively hyperintense on the T2-weighted images and hypointense on the T1-weighted images. Oblique fra cture line visible in the distal portion. No fracture is visible on the plain x- ray. Following gadolinium intense enhancement of nearly the [...] bone with soft tissue swelling. Differential diagnosis in cludes osteomyelitis and stress fracture. Correlate clinically. No drainable abscess. No other fractures or other areas of abnormal enhancement to suggest osteomyelitis either. at 0851 Reported and signed by: Julius Escalante M.D. CC: Benjamin Pozo MD; Amelia Herr MD; Siddharth Heaton NP Technologist: RT CONNOR - MRI Trnscrd Date/Time/By: 12/21/2021 (0851) : By: [email or web address] Orig Print D/T: S: 12/21/2021 (5274) PAGE 1 Signed [id number] 07:34:00* Test Item Value Reference Range Interpretation Comme nts GLUBED (test code = GLUBED) 184 mg/dL 74-106 H Performed by cer tified tube closing machine operator [facility]ified Nurse~ [id number] 21:38:00* Test Item Value Reference Range Interpretation Comme nts GLUBED (test code = GLUBED) 218 mg/dL 74-106 H Performed by cer tified tube closing machine operator at [facility] [id number] 16:01:00* Test Item Value Reference Range Interpretation Comme nts VANCOMYCIN (test code = VANCO) 8.3 UG/ML 5.0-45.0 N [id number] 15:54:00* Test Item Value Reference Range Interpretation Comme nts GLUBED (test code = GLUBED) 228 mg/dL 74-106 H Performed by cer tified tube closing machine operator at [facility] [id number] 12:28:00* Test Item Value Reference Range Interpretation Comme nts GLUBED (test code = GLUBED) 224 mg/dL 74-106 H Performed by cer tified tube closing machine operator at [facility] [id number] 08:06:00* Test Item Value Reference Range Interpretation Comme nts GLUBED (test code = GLUBED) 236 mg/dL 74-106 H Performed by cer tified tube closing machine operator at [facility] [id number] 06:13:00* Test Item Value Reference Range Interpretation Comme nts GLUBED (test code = GLUBED) 265 mg/dL 74-106 H Performed by cer tified tube closing machine operator at [facility] [id number] 20:37:00* Test Item Value Reference Range Interpretation Comme nts GLUBED (test code = GLUBED) 200 mg/dL 74-106 H Performed by cer tified tube closing machine operator at [facility] [id number] 17:08:00* Test Item Value Reference Range Interpretation Comme nts GLUBED (test code = GLUBED) 292 mg/dL 74-106 H Performed by cer tified tube closing machine operator at [facility] [id number] 11:36:00* Test Item Value Reference Range Interpretation Comme nts GLUBED (test code = GLUBED) 185 mg/dL 74-106 H Performed by cer walter tube closing machine operator at [facility] COMPREHENSIVE METABOLIC [id number] 09:33:00* Test Item Value Reference Range Interpretation Comme nts SODIUM (test code = NA) 138 mmol/L 136-145 N POTASSIUM (test code = K) 4.6 mmol/L 3.5-5.1 N CHLORIDE (test code = CL) 107.0 mmol/L 98-107 N CARBON DIOXIDE (test code = CO2) 27.0 mmol/L 21-32 N ANION GAP (test code = GAP) 8.6 10-20 L GLUCOSE (test code = GLU) 164 mg/dL 74-106 H BLOOD UREA NITROGEN (test code = BUN) 11 mg/dL 7-18 N GLOMERULAR FILTRATION RATE (test code = GFR) > 60 mL/min See_Comment Estimated GFR by using Modified MDRD formula.Chronic kidney disease is defined as either kidney damageor GFR <60 mL/min/1.73 m2 for >3 months. [Automated message] The system which generated this result transmitted reference range: >=60. The reference range was not used to interpret this result as normal/abnormal. CREATININE (test code = CREAT) 0.50 mg/dL 0.55-1.02 L Note change in reference range due to change in reagent. BUN/CREATININE RATIO (test code = BUN/CREA) 22.0 10-20 H TOTAL PROTEIN (test code = PROT) 6.4 gram/dL 6.4-8.2 N ALBUMIN (test code = ALB) 2.8 g/dL 3.4-5.0 L GLOBULIN (test code = GLOB) 3.6 gram/dL 2.7-4.2 N ALBUMIN/GLOBULIN RATIO (test code = A/G) 0.8 0.75-1.50 N CALCIUM (test code = CA) 8.2 mg/dL 8.5-10.1 L BILIRUBIN TOTAL (test code = BILT) 0.40 mg/dL 0.0-1.0 N SGOT/AST (test code = AST) 35 IUnit/L 15-37 N SGPT/ALT (test code = ALT) 23 IUnit/L 12-78 N ALKALINE PHOSPHATASE TOTAL (test code = ALKP) 79 IUnit/L 45-117 N Note change in reference range due to change in reagent. CBC W/AUTO [id number] 08:52:00* Test Item Value Reference Range Interpretation Comme nts WHITE BLOOD CELL (test code = WBC) 6.9 K/mm3 4.5-12.5 N RED BLOOD CELL (test code = RBC) 4.56 mill/mm3 3.7-5.2 N HEMOGLOBIN (test code = HGB) 13.2 gram/dL 11.5-15.5 N HEMATOCRIT (test code = HCT) 40.6 % 36.0-46.0 N MEAN CELL VOLUME (test code = MCV) 89.0 fL 80-98 N MEAN CELL HGB (test code = MCH) 28.9 picogram 27.0-33.0 N MEAN CELL HGB CONCETRATION (test code = MCHC) 32.5 gram/dL 33.0-36.0 L RED CELL DISTRIBUTION WIDTH (test code = RDW) 12.3 % 11.6-16.2 N RED CELL DISTRIBUTION WIDTH SD (test code = RDW-SD) 40.3 fL 37.0-51.0 N PLATELET COUNT (test code = PLT) 213 K/mm3 150-450 N MEAN PLATELET VOLUME (test c ode = MPV) 12.0 fL 6.7-11.0 H NEUTROPHIL % (test code = NT%) 57.8 % 39.0-69.0 N IMMATURE GRANULOCYTE % (test code = IG%) 1.0 % 0.0-5.0 N LYMPHOCYTE % (test code = LY%) 30.6 % 25.0-55.0 N MONOCYTE % (test code = MO%) 8.0 % 0.0-10.0 N EOSINOPHIL % (test code = EO%) 2.2 % 0.0-5.0 N BASOPHIL % (test code = BA%) 0.4 % 0.0-1.0 N NUCLEATED RBC % (test code = NRBC%) 0.0 % 0-0 N NEUTROPHIL # (test code = NT#) 3.98 K/mm3 1.8-7.7 N IMMATURE GRANULOCYTE # (test code = IG#) 0.07 x10 3/uL 0-0.03 H LYMPHOCYTE # (test code = LY#) 2.11 K/mm3 1.0-5.0 N MONOCYTE # (test code = MO#) 0.55 K/mm3 0-0.8 N EOSINOPHIL # (test code = EO#) 0.15 K/mm3 0.0-0.5 N BASOPHIL # (test code = BA#) 0.03 K/mm3 0.0-0.2 N NUCLEATED RBC # (test code = NRBC#) 0.00 K/mm3 0.0-0.1 N MANUAL DIFF REQUIRED (test c ode = MDIFF) NO [id number] 07:19:00* Test Item Value Reference Range Interpretation Comme nts GLUBED (test code = GLUBED) 165 mg/dL 74-106 H Performed by cer tified tube closing machine operator at [facility] [id number] 05:48:00* Test Item Value Reference Range Interpretation Comme nts GLUBED (test code = GLUBED) 152 mg/dL 74-106 H Performed by cer tified tube closing machine operator at [facility] [id number] 21:03:00* Test Item Value Reference Range Interpretation Comme nts GLUBED (test code = GLUBED) 327 mg/dL 74-106 H Performed by cer tified tube closing machine operator at [facility] [id number] 19:31:00* Test Item Value Reference Range Interpretation Comme nts GLUBED (test code = GLUBED) 223 mg/dL 74-106 H Performed by cer tified tube closing machine operator at [facility] [id number] 11:05:00* Test Item Value Reference Range Interpretation Comme nts GLUBED (test code = GLUBED) 170 mg/dL 74-106 H Performed by cer tified tube closing machine operator at [facility] [id number] 07:41:00* Test Item Value Reference Range Interpretation Comme nts GLUBED (test code = GLUBED) 255 mg/dL 74-106 H Performed by cer tified tube closing machine operator at [facility] [id number] 06:49:00* Test Item Value Reference Range Interpretation Comme nts GLUBED (test code = GLUBED) 257 mg/dL 74-106 H Performed by cer tified tube closing machine operator at [facility] LIPID PROFILE (CORONARY RISK)2021-12-18 03:38:00* Test Item Value Reference Range Interpretation Comme nts TRIGLYCERIDES (test code = TRIG) 145 mg/dL 20-150 N CHOLESTEROL (test code = CHOL) 156 mg/dL 0-200 N CHOLESTEROL/HDL RATIO (test code = CHOLHDL) 3.0 RATIO 0-4.9 N RISK ASSOC IATED WITH CHOL/HDL RATIOS: Risk Male Female1/2 AVERAGE 3.43 3.27AVERAGE 4.97 4.442X AVERAGE 9.55 7.053X AVERAGE 23.39 11.04 REFERENCE VALUE IS RELATED TO RISK LEVELS ASRECOMMENDED BY THE RAHEEL. HEART, LUNG, AND BLOOD INST. HDL CHOLESTEROL (test code = HDL) 52 mg/dL 40-60 N LIPOPROTEIN LDL (test code = LDL) 106 mg/dL 100-129 N RN PERSONNEL, CO NTACT PHYSICIAN IMMEDIATELY IF THIS IS A STROKE, AMI OR CAROTID STENOSIS PATIENT WHEN THE LDL >100 (1ST OCCURENCE, THIS ADMISSION) ===Reference Interval: mg/dL mmol/L O ptimal <100 <2.6Near/above optimal 100-129 2.6-3.3Borderline High 130-159 3.4-4.1High 160-189 4.1-4.9Very High >=190 >=4.9========= This LDL result is a direct measurement.========= THYROID STIMULATING [id number] 03:38:00* Test Item Value Reference Range Interpretation Comme nts THYROID STIMULATING HORMONE (test code = TSH) 0.669 uIU/mL 0.36-3.74 N TSH REFERENCE RANGES: EUTHYROID: 0.35 - 4.3 mIU/mL HYPO : > 5.5 mIU/mL HYPER : < 0.35 mIU/mL [id number] 03:28:00* Test Item Value Reference Range Interpretation Comme nts GLYCOSYLATED HEMOGLOBIN (HA1C) (test code = GLYHGB) 13.0 % HbA1 SUGGESTED DIAGNOSIS: HbA1C (%) ------ Diabetic >6.4Prediabetes 5.7 - 6.4Normal <5.7 ESTIMATED AVERAGE GLUCOSE (test code = EAG) 326 MG/DL COVID 19 INHOUSE [id number] 01:28:00* Test Item Value Reference Range Interpretation Comme nts COVID 19 INHOUSE AG (test co de = [id number]) NEGATIVE NEGATIVE URINALYSIS [id number] 22:30:00* Test Item Value Reference Range Interpretation Comme nts UA COLOR (test code = COLU) Light-Yellow YELLOW UA APPEARANCE (test code = APPU) CLEAR CLEAR IS THE SAMPLE FROM ER OR L&D?Y IF THE ANSWER IS NO,PLEASE DOCUMENT TWO RN SIGNATURES HERE- by [id number] 12/17/21 7950 UA GLUCOSE DIPSTICK (test code = DGLUU) >1000 (4+) mg/dL NEGATIVE UA BILIRUBIN DIPSTICK (test code = BILU) NEGATIVE mg/dL NEGATIVE UA KETONE DIPSTICK (test code = KETU) NEGATIVE mg/dL NEGATIVE UA SPECIFIC GRAVITY (test code = SGU) 1.044 1.001-1.035 UA BLOOD DIPSTICK (test code = KARI) Negative mg/dL NEGATIVE UA PH DIPSTICK (test code = ZEESHAN) 5.5 5.0-8.0 UA PROTEIN DIPSTICK (test code = PROU) NEGATIVE mg/dL NEGATIVE UA UROBILINIOGEN DIPSTICK (test code = URO) Normal mg/dL NEGATIVE UA NITRITE DIPSTICK (test code = HADLEY) NEGATIVE NEGATIVE UA LEUKOCYTE ESTERASE W REFLEX (test code = LEUUR) NEGATIVE Lisette/uL NEGATIVE UA WBC (test code = WBCU) 0-5 per HPF 0-5 UA RBC (test code = RBCU) 0-2 #/HPF 0-5 UA EPITHELIAL CELLS (test code = EPIU) FEW per HPF FEW UA BACTERIA (test code = BACU) FEW #/HPF NONE A Urine Source? Clean Catch- XR FOOT 3 + V [id number] 22:04:00 [facility]Name: GLENNA HUBBARD : 1980 Sex: F FAX: Zachery Cody [employer] [phone] [place]: St: REG Name: GLENNA HUBBARD [facility] : 1980 Age/S:41/F [address] [facility] Unit #: [id number] Loc: [place] [address] Phys: Zachery Nino APRNNPAcct: [id number] Dis Date: Status: REG ER PHONE #: [phone] Exam Date: 12/17/2021 2135 FAX #: [phone] Reason: foot wound EXAMS: CPT CODE: [id number] XR FOOT 3 + [place] LT [id number] 3 VIEWS LEFT FOOT Dictation Location: N13 [...] by: Elise Mcelroy M.D. CC: Zachery Nino hnologist: VIVI KWAN Trnscrd Date/Time/By: 12/17/2021 (2203) : By: Esteban Orig Print D/T: S:12/17/2021 (2206) PAGE 1 Signed ReportLACTIC [id number] 22:02:00* Test Item Value Reference Range Interpretation Comme nts LACTIC ACID (test code = LACT) 0.8 mmol/L 0.4-1.9 N BASIC METABOLIC [id number] 22:02:00* Test Item Value Reference Range Interpretation Comme nts SODIUM (test code = NA) 136 mmol/L 136-145 N POTASSIUM (test code = K) 3.4 mmol/L 3.5-5.1 L CHLORIDE (test code = CL) 103.0 mmol/L 98-107 N CARBON DIOXIDE (test code = CO2) 27.0 mmol/L 21-32 N ANION GAP (test code = GAP) 9.4 10-20 L GLUCOSE (test code = GLU) 320 mg/dL 74-106 H BLOOD UREA NITROGEN (test code = BUN) 15 mg/dL 7-18 N GLOMERULAR FILTRATION RATE (test code = GFR) > 60 mL/min See_Comment Estimated GFR by using Modified MDRD formula.Chronic kidney disease is defined as either kidney damageor GFR <60 mL/min/1.73 m2 for >3 months. [Automated message] The system which generated this result transmitted reference range: >=60. The reference range was not used to interpret this result as normal/abnormal. CREATININE (test code = CREAT) 0.80 mg/dL 0.55-1.02 N Note change in reference range due to change in reagent. BUN/CREATININE RATIO (test code = BUN/CREA) 19.0 10-20 N CALCIUM (test code = CA) 9.2 mg/dL 8.5-10.1 N HEPATIC FUNCTION [id number] 22:02:00* Test Item Value Reference Range Interpretation Comme nts TOTAL PROTEIN (test code = PROT) 8.0 gram/dL 6.4-8.2 N ALBUMIN (test code = ALB) 3.7 g/dL 3.4-5.0 N GLOBULIN (test code = GLOB) 4.3 gram/dL 2.7-4.2 H ALBUMIN/GLOBULIN RATIO (test code = A/G) 0.9 0.75-1.50 N BILIRUBIN TOTAL (test code = BILT) 0.40 mg/dL 0.0-1.0 N BILIRUBIN DIRECT (test code = BILD) 0.10 mg/dL 0.0-0.20 N SGOT/AST (test code = AST) 19 IUnit/L 15-37 N SGPT/ALT (test code = ALT) 23 IUnit/L 12-78 N ALKALINE PHOSPHATASE TOTAL (test code = ALKP) 160 IUnit/L 45-117 H Note change in reference range due to change in reagent. [id number] 22:02:00* Test Item Value Reference Range Interpretation Comme nts TROPONIN-HS (test code = TROPI) <4.0 pg/mL 0-45 N CAUTION: Units o f the current test methodology (pg/mL)differ from the prior test methodology (ng/mL) by a factorof 1000. CBC W/AUTO [id number] 21:45:00* Test Item Value Reference Range Interpretation Comme nts WHITE BLOOD CELL (test code = WBC) 8.4 K/mm3 4.5-12.5 N RED BLOOD CELL (test code = RBC) 4.96 mill/mm3 3.7-5.2 N HEMOGLOBIN (test code = HGB) 14.4 gram/dL 11.5-15.5 N HEMATOCRIT (test code = HCT) 43.2 % 36.0-46.0 N MEAN CELL VOLUME (test code = MCV) 87.1 fL 80-98 N MEAN CELL HGB (test code = MCH) 29.0 picogram 27.0-33.0 N MEAN CELL HGB CONCETRATION (test code = MCHC) 33.3 gram/dL 33.0-36.0 N RED CELL DISTRIBUTION WIDTH (test code = RDW) 12.4 % 11.6-16.2 N RED CELL DISTRIBUTION WIDTH SD (test code = RDW-SD) 39.1 fL 37.0-51.0 N PLATELET COUNT (test code = PLT) 237 K/mm3 150-450 N MEAN PLATELET VOLUME (test c ode = MPV) 12.2 fL 6.7-11.0 H NEUTROPHIL % (test code = NT%) 54.7 % 39.0-69.0 N IMMATURE GRANULOCYTE % (test code = IG%) 0.8 % 0.0-5.0 N LYMPHOCYTE % (test code = LY%) 34.1 % 25.0-55.0 N MONOCYTE % (test code = MO%) 7.9 % 0.0-10.0 N EOSINOPHIL % (test code = EO%) 2.0 % 0.0-5.0 N BASOPHIL % (test code = BA%) 0.5 % 0.0-1.0 N NUCLEATED RBC % (test code = NRBC%) 0.0 % 0-0 N NEUTROPHIL # (test code = NT#) 4.59 K/mm3 1.8-7.7 N IMMATURE GRANULOCYTE # (test code = IG#) 0.07 x10 3/uL 0-0.03 H LYMPHOCYTE # (test code = LY#) 2.86 K/mm3 1.0-5.0 N MONOCYTE # (test code = MO#) 0.66 K/mm3 0-0.8 N EOSINOPHIL # (test code = EO#) 0.17 K/mm3 0.0-0.5 N BASOPHIL # (test code = BA#) 0.04 K/mm3 0.0-0.2 N NUCLEATED RBC # (test code = NRBC#) 0.00 K/mm3 0.0-0.1 N MANUAL DIFF REQUIRED (test c ode = MDIFF) NO - XR CHEST 1 [id number] 21:07:00 [facility])Name: GLENNA HUBBARD : 1980 Sex: F FAX: Y Zachery Nino JERRY [phone] [place]: St: REG Name: GLENNA HUBBARD [facility] : 1980 Age/S: 41/F [address] [facility] [facility] Unit #: [id number] Loc: [place] [address] Phys: Zachery Nino AARTIPAcct: [id number] Dis Date: Status: REG ER PHONE #: [phone] Exam Date: 12/17/20212045 FAX #: [phone] Reason: CODE SEPSIS EXAMS: CPT CODE: [id number] XR CHEST 1 V 35972 EXAM: Chest x-ray, one view; INFORMATION: Code sepsis; FINDINGS: There are fibrotic changes in the midlung rizzo bilaterally. No evidence of acute infiltrate; no edema; no effusions; no pneumothorax. Unremarkable cardiac mediastinal silhouette. IMPRESSION: 1. Bilateral pulmonary scarring. 2. No evidence of acute cardiothoracic abnormalities. Location code: [facility] at 2106 Reported and signed by: Petar Duarte M.D. CC: Zachery Nino APRNNP Marilee hnologist: RT JAH(R) Trnscrd Date/Time/By: 12/17/2021 (2106) : By: Shaka Orig PrintD/T: S: 12/17/2021 (2109) PAGE 1 Signed ReportSEDIMENTATION [id number] 20:18:57* Test Item Value Reference Range Interpretation Comme nts ESR (test code = 0931637365) See_Comment H [Automated messa ge] The system which generated this result transmitted reference range: 0 - 20 mm/HR. The reference range was not used to interpret this result as normal/abnormal. Lab Interpretation (test code = 39406-4) [facility] (51186)2021-12-17 19:53:54* Test Item Value Reference Range Interpretation Comme nts NA (test code = 8188824524) 134 mmol/L 135-145 L K (test code = 7631156227) 4.0 mmol/L 3.5-5.0 CL (test code = 2400306298) 100 mmol/L 98-108 CO2 TOTAL (test code = 2556260226) 30 mmol/L 23-31 AGAP (test code = 4913305297) 2-16 BUN (test code = 9208412808) 16 mg/dL 7-23 GLUCOSE (test code = 4257171098) 429 mg/dL 70-110 H CREATININE (test code = 9351269344) 0.52 mg/dL 0.50-1.04 TOTAL BILI (test code = 1103407684) 0.5 mg/dL 0.1-1.1 CALCIUM (test code = 4416028433) 8.8 mg/dL 8.6-10.6 T PROTEIN (test code = 2788852681) 7.3 g/dL 6.3-8.2 ALBUMIN (test code = 6054310408) 4.1 g/dL 3.5-5.0 ALK PHOS (test code = 5592932980) 212 U/L 34-122 H ALTv (test code = 1742-6) 23 U/L 5-35 AST(SGOT) (test code = 6863708866) 26 U/L 13-40 eGFR (test code = 4959061500) mL/min/1.73m2 JOHANNE (test code = JOHANNE) Association of [...] or abnormalities in imaging tests). Lab Interpretation (test code = 88167-8) Abnormal [facility] WITH [id number] 19:38:57* Test Item Value Reference Range Interpretation Comme nts WBC (test code = 6690-2) See_Comment [[employer]] The system which generated this result transmitted reference range: 4.30 - 11.10 10*3/?L. The reference range was not used to interpret this result as normal/abnormal. RBC (test code = 789-8) See_Comment [[employer]] The system which generated this result transmitted reference range: 3.93 - 5.25 10*6/?L. The reference range was not used to interpret this result as normal/abnormal. HGB (test code = 718-7) 13.9 g/dL 11.6-15.0 HCT (test code = 4544-3) 41.1 % 35.7-45.2 MCV (test code = 787-2) 85.6 fL 80.6-95.5 MCH (test code = 785-6) 29.0 pg 25.9-32.8 MCHC (test code = 786-4) 33.8 g/dL 31.6-35.1 RDW-SD (test code = 72655-8) 37.5 fL 39.0-49.9 L RDW-CV (test code = 788-0) 11.9 % 12.0-15.5 L PLT (test code = 777-3) See_Comment [Automated messa ge] The system which generated this result transmitted reference range: 166 - 358 10*3/?L. The reference range was not used to interpret this result as normal/abnormal. MPV (test code = 06407-1) 12.4 fL 9.5-12.9 NRBC/100 WBC (test code = 3606868914) See_Comment [Automated [employer] ssage] The system which generated this result transmitted reference range: 0.0 - 10.0 /100 WBCs. The reference range was not used to interpret this result as normal/abnormal. NRBC x10^3 (test code = 1104953927) <0.01 See_Comment [Automated messa ge] The system which generated this result transmitted reference range: 10*3/?L. The reference range was not used to interpret this result as normal/abnormal. GRAN MAT (NEUT) % (test code = 770-8) 56.9 % IMM GRAN % (test code = 5089123744) 0.70 % LYMPH % (test code = 736-9) 31.8 % MONO % (test code = 5905-5) 8.5 % EOS % (test code = 713-8) 1.6 % BASO % (test code = 706-2) 0.5 % GRAN MAT x10^3(ANC) (test code = 8980456017) 4.29 10*3/uL 1.88-7.09 IMM GRAN x10^3 (test code = 0723004677) 0.05 10*3/uL 0.00-0.06 LYMPH x10^3 (test code = 731-0) 2.40 10*3/uL 1.32-3.29 MONO x10^3 (test code = 742-7) 0.64 10*3/uL 0.33-0.92 EOS x10^3 (test code = 711-2) 0.12 10*3/uL 0.03-0.39 BASO x10^3 (test code = 704-7) 0.04 10*3/uL 0.01-0.07 Lab Interpretation (test code = 03490-5) [facility]normal [facility] [id number] 00:00:00* Test Item Value Reference Range Interpretation Comme nts HEMOGLOBIN A1c (test code = 49380) 13.5 % Caden RehmanHEMOGLOBIN [id number] 00:00:00* Test Item Value Reference Range Interpretation Comme nts HEMOGLOBIN A1c (test code = 61271) 13.5 % HEMOGLOBIN [id number] 00:00:00* Test Item Value Reference Range Interpretation Comme nts HEMOGLOBIN A1c (test code = 70461) 13.5 % HEMOGLOBIN [id number] 00:00:00* Test Item Value Reference Range Interpretation Comme nts HEMOGLOBIN A1c (test code = 81857) 13.5 % Caden RehmanCULTURE, [id number] 00:00:00* Test Item Value Reference Range Interpretation Comme nts CULTURE, URINE (test code = 63062) SPECIMEN NUMBER: [id number] Caden RehmanCULTURE, [id number] 00:00:00* Test Item Value Reference Range Interpretation Comme nts CULTURE, URINE (test code = 49728) SPECIMEN NUMBER: [id number] CULTURE, [id number] 00:00:00* Test Item Value Reference Range Interpretation Comme nts CULTURE, URINE (test code = 87362) SPECIMEN NUMBER: [id number] CULTURE, [id number] 00:00:00* Test Item Value Reference Range Interpretation Comme nts CULTURE, URINE (test code = 10144) SPECIMEN NUMBER: [id number] Caden Rodriguez [id number] (COVID-19) by RT-PCR (HIGH RISK)2020-06-25 00:00:00* Test Item Value Reference Range Interpretation Comme nts SARS-CoV-2 INTERPRETATION (t est code = 70668) POSITIVE SOURCE (test code = 95305) NOT SPECIFIED Caden Rodriguez [id number] (COVID-19) by RT-PCR (HIGH RISK)2020-06-25 00:00:00* Test Item Value Reference Range Interpretation Comme nts SARS-CoV-2 INTERPRETATION (t est code = 11485) POSITIVE SOURCE (test code = 97365) NOT SPECIFIED SARS-CoV-2 (COVID-19) by RT-PCR (HIGH RISK)2020-06-25 00:00:00* Test Item Value Reference Range Interpretation Comme nts SARS-CoV-2 INTERPRETATION (t est code = 11381) POSITIVE SOURCE (test code = 11153) NOT SPECIFIED SARS-CoV-2 (COVID-19) by RT-PCR (HIGH RISK)2020-06-25 00:00:00* Test Item Value Reference Range Interpretation Comme nts SARS-CoV-2 INTERPRETATION (t est code = 96595) POSITIVE SOURCE (test code = 83352) NOT SPECIFIED Caden Rodriguez AustinCULTURE, [id number] 00:00:00* Test Item Value Reference Range Interpretation Comme nts CULTURE, URINE (test code = 46504) SPECIMEN NUMBER: [id number] Caden Rodriguez AustinCULTURE, [id number] 00:00:00* Test Item Value Reference Range Interpretation Comme nts CULTURE, URINE (test code = 08767) SPECIMEN NUMBER: [id number] Caden RehmanCULTURE, [id number] 00:00:00* Test Item Value Reference Range Interpretation Comme nts CULTURE, URINE (test code = 48387) SPECIMEN NUMBER: [id number] CULTURE, [id number] 00:00:00* Test Item Value Reference Range Interpretation Comme nts CULTURE, URINE (test code = 87057) SPECIMEN NUMBER: [id number] MICROALBUMIN/CREATININE, RANDOM AND [id number] 00:00:00* Test Item Value Reference Range Interpretation Comme nts CREATININE, URINE, CONC. (te st code = 207) 63.4 MG/DL ALBUMIN, URINE, RANDOM (test code = 44072) 1.0 MG/DL CALC ALBUMIN/CREAT, RND (travis t code = 62075) 16 MG/G Caden Rodriguez AustinMICROALBUMIN/CREATININE, RANDOM AND [id number] 00:00:00* Test Item Value Reference Range Interpretation Comme nts CREATININE, URINE, CONC. (te st code = 207) 63.4 MG/DL ALBUMIN, URINE, RANDOM (test code = 80851) 1.0 MG/DL CALC ALBUMIN/CREAT, RND (travis t code = 14050) 16 MG/G MICROALBUMIN/CREATININE, RANDOM AND [id number] 00:00:00* Test Item Value Reference Range Interpretation Comme nts CREATININE, URINE, CONC. (te st code = 207) 63.4 MG/DL ALBUMIN, URINE, RANDOM (test code = 56030) 1.0 MG/DL CALC ALBUMIN/CREAT, RND (travis t code = 66667) 16 MG/G MICROALBUMIN/CREATININE, RANDOM AND [id number] 00:00:00* Test Item Value Reference Range Interpretation Comme nts CREATININE, URINE, CONC. (te st code = 2072) 63.4 MG/DL ALBUMIN, URINE, RANDOM (test code = 32298) 1.0 MG/DL CALC ALBUMIN/CREAT, RND (travis t code = 59012) 16 MG/G Caden Rodriguez AustinCOMPREHENSIVE METABOLIC [id number] 00:00:00* Test Item Value Reference Range Interpretation Comme nts GLUCOSE (test code = 2217) 292 MG/DL BUN (test code = 2208) 10 MG/DL CREATININE (test code = 2214) 0.41 MG/DL eGFR AMER. (test cod e = 47329) 149 ML/MIN/1.73 eGFR NON- AMER. (test code = 71607) 128 ML/MIN/1.73 CALC BUN/CREAT (test code = 2235) 24 RATIO SODIUM (test code = 2231) 136 MEQ/L POTASSIUM (test code = 2228) 4.0 MEQ/L CHLORIDE (test code = 2215) 99 MEQ/L CARBON DIOXIDE (test code = 2206) 26 MEQ/L CALCIUM (test code = 2209) 9.1 MG/DL PROTEIN, TOTAL (test code = 2229) 7.3 G/DL ALBUMIN (test code = 2201) 4.2 G/DL CALC GLOBULIN (test code = 2240) 3.1 G/DL CALC A/G RATIO (test code = 2234) 1.4 RATIO BILIRUBIN, TOTAL (test code = 2207) 0.6 MG/DL ALKALINE PHOSPHATASE (test code = 2204) 106 U/L AST (test code = 2218) 13 U/L ALT (test code = 2219) 19 U/L Caden F AustinLIPID [id number] 00:00:00* Test Item Value Reference Range Interpretation Comme nts CHOLESTEROL (test code = 2210) 169 MG/DL TRIGLYCERIDES (test code = 2232) 100 MG/DL HDL CHOLESTEROL (test code = 2220) 75 MG/DL CALC LDL CHOL (test code = 2237) 75 MG/DL RISK RATIO LDL/HDL (test cod e = 2238) 1.00 RATIO Caden Rodriguez AustinCOMPREHENSIVE METABOLIC [id number] 00:00:00* Test Item Value Reference Range Interpretation Comme nts GLUCOSE (test code = 2217) 292 MG/DL BUN (test code = 2208) 10 MG/DL CREATININE (test code = 2214) 0.41 MG/DL eGFR AMER. (test cod e = 12370) 149 ML/MIN/1.73 eGFR NON- AMER. (test code = 43721) 128 ML/MIN/1.73 CALC BUN/CREAT (test code = 2235) 24 RATIO SODIUM (test code = 2231) 136 MEQ/L POTASSIUM (test code = 2228) 4.0 MEQ/L CHLORIDE (test code = 2215) 99 MEQ/L CARBON DIOXIDE (test code = 2206) 26 MEQ/L CALCIUM (test code = 2209) 9.1 MG/DL PROTEIN, TOTAL (test code = 2229) 7.3 G/DL ALBUMIN (test code = 2201) 4.2 G/DL CALC GLOBULIN (test code = 2240) 3.1 G/DL CALC A/G RATIO (test code = 2234) 1.4 RATIO BILIRUBIN, TOTAL (test code = 2207) 0.6 MG/DL ALKALINE PHOSPHATASE (test code = 2204) 106 U/L AST (test code = 2218) 13 U/L ALT (test code = 2219) 19 U/L Caden Rodriguez AustinLIPID [id number] 00:00:00* Test Item Value Reference Range Interpretation Comme nts CHOLESTEROL (test code = 2210) 169 MG/DL TRIGLYCERIDES (test code = 2232) 100 MG/DL HDL CHOLESTEROL (test code = 2220) 75 MG/DL CALC LDL CHOL (test code = 2237) 75 MG/DL RISK RATIO LDL/HDL (test cod e = 2238) 1.00 RATIO Caden Rodriguez AustinCOMPREHENSIVE METABOLIC [id number] 00:00:00* Test Item Value Reference Range Interpretation Comme nts GLUCOSE (test code = 2217) 292 MG/DL BUN (test code = 2208) 10 MG/DL CREATININE (test code = 2214) 0.41 MG/DL eGFR AMER. (test cod e = 05101) 149 ML/MIN/1.73 eGFR NON- AMER. (test code = 53185) 128 ML/MIN/1.73 CALC BUN/CREAT (test code = 2235) 24 RATIO SODIUM (test code = 2231) 136 MEQ/L POTASSIUM (test code = 2228) 4.0 MEQ/L CHLORIDE (test code = 2215) 99 MEQ/L CARBON DIOXIDE (test code = 2206) 26 MEQ/L CALCIUM (test code = 2209) 9.1 MG/DL PROTEIN, TOTAL (test code = 2229) 7.3 G/DL ALBUMIN (test code = 2201) 4.2 G/DL CALC GLOBULIN (test code = 2240) 3.1 G/DL CALC A/G RATIO (test code = 2234) 1.4 RATIO BILIRUBIN, TOTAL (test code = 2207) 0.6 MG/DL ALKALINE PHOSPHATASE (test code = 2204) 106 U/L AST (test code = 2218) 13 U/L ALT (test code = 2219) 19 U/L LIPID [id number] 00:00:00* Test Item Value Reference Range Interpretation Comme nts CHOLESTEROL (test code = 2210) 169 MG/DL TRIGLYCERIDES (test code = 2232) 100 MG/DL HDL CHOLESTEROL (test code = 2220) 75 MG/DL CALC LDL CHOL (test code = 2237) 75 MG/DL RISK RATIO LDL/HDL (test cod e = 2238) 1.00 RATIO COMPREHENSIVE METABOLIC [id number] 00:00:00* Test Item Value Reference Range Interpretation Comme nts GLUCOSE (test code = 2217) 292 MG/DL BUN (test code = 2208) 10 MG/DL CREATININE (test code = 2214) 0.41 MG/DL eGFR AMER. (test cod e = 74531) 149 ML/MIN/1.73 eGFR NON- AMER. (test code = 37557) 128 ML/MIN/1.73 CALC BUN/CREAT (test code = 2235) 24 RATIO SODIUM (test code = 2231) 136 MEQ/L POTASSIUM (test code = 2228) 4.0 MEQ/L CHLORIDE (test code = 2215) 99 MEQ/L CARBON DIOXIDE (test code = 2206) 26 MEQ/L CALCIUM (test code = 2209) 9.1 MG/DL PROTEIN, TOTAL (test code = 2229) 7.3 G/DL ALBUMIN (test code = 2201) 4.2 G/DL CALC GLOBULIN (test code = 2240) 3.1 G/DL CALC A/G RATIO (test code = 2234) 1.4 RATIO BILIRUBIN, TOTAL (test code = 2207) 0.6 MG/DL ALKALINE PHOSPHATASE (test code = 2204) 106 U/L AST (test code = 2218) 13 U/L ALT (test code = 2219) 19 U/L LIPID [id number] 00:00:00* Test Item Value Reference Range Interpretation Comme nts CHOLESTEROL (test code = 2210) 169 MG/DL TRIGLYCERIDES (test code = 2232) 100 MG/DL HDL CHOLESTEROL (test code = 2220) 75 MG/DL CALC LDL CHOL (test code = 2237) 75 MG/DL RISK RATIO LDL/HDL (test cod e = 2238) 1.00 RATIO CBC W/AUTO [id number] 00:00:00* Test Item Value Reference Range Interpretation Comme nts WBC (test code = 1001) 8.4 K/UL [...] COUNT (test code = 1015) 198 K/UL Caden Michael OriHEMOGLOBIN [id number] 00:00:00* Test Item Value Reference Range Interpretation Comme nts HEMOGLOBIN A1c (test code = 00022) 11.8 % Caden RehmanCBC W/AUTO [id number] 00:00:00* Test Item Value Reference Range Interpretation Comme nts WBC (test code = 1001) 8.4 K/UL [...] COUNT (test code = 1015) 198 K/UL Caden Rodriguez AustinHEMOGLOBIN [id number] 00:00:00* Test Item Value Reference Range Interpretation Comme nts HEMOGLOBIN A1c (test code = 99183) 11.8 % Caden Rodriguez AustinCBC W/AUTO [id number] 00:00:00* Test Item Value Reference Range Interpretation Comme nts WBC (test code = 1001) 8.4 K/UL [...] (test code = 1015) 198 K/UL HEMOGLOBIN [id number] 00:00:00* Test Item Value Reference Range Interpretation Comme nts HEMOGLOBIN A1c (test code = 00992) 11.8 % CBC W/AUTO [id number] 00:00:00* Test Item Value Reference Range Interpretation Comme nts WBC (test code = 1001) 8.4 K/UL [...] (test code = 1015) 198 K/UL HEMOGLOBIN [id number] 00:00:00* Test Item Value Reference Range Interpretation Comme nts HEMOGLOBIN A1c (test code = 71354) 11.8 % COMPREHENSIVE METABOLIC [id number] 00:00:00* Test Item Value Reference Range Interpretation Comme nts GLUCOSE (test code = 2217) 349 MG/DL BUN (test code = 2208) 12 MG/DL CREATININE (test code = 2214) 0.63 MG/DL eGFR AMER. (test cod e = 34476) 132 ML/MIN/1.73 eGFR NON- AMER. (test code = 44337) 114 ML/MIN/1.73 CALC BUN/CREAT (test code = 2235) 19 RATIO SODIUM (test code = 2231) 133 MEQ/L POTASSIUM (test code = 2228) 3.7 MEQ/L CHLORIDE (test code = 2215) 95 MEQ/L CARBON DIOXIDE (test code = 2206) 22 MEQ/L CALCIUM (test code = 2209) 9.1 MG/DL PROTEIN, TOTAL (test code = 2229) 7.5 G/DL ALBUMIN (test code = 2201) 3.9 G/DL CALC GLOBULIN (test code = 2240) 3.6 G/DL CALC A/G RATIO (test code = 2234) 1.1 RATIO BILIRUBIN, TOTAL (test code = 2207) 0.3 MG/DL ALKALINE PHOSPHATASE (test code = 2204) 116 U/L AST (test code = 2218) 22 U/L ALT (test code = 2219) 14 U/L Caden F AustinLIPID [id number] 00:00:00* Test Item Value Reference Range Interpretation Comme nts CHOLESTEROL (test code = 2210) 185 MG/DL TRIGLYCERIDES (test code = 2232) 168 MG/DL HDL CHOLESTEROL (test code = 2220) 74 MG/DL CALC LDL CHOL (test code = 2237) 77 MG/DL RISK RATIO LDL/HDL (test cod e = 2238) 1.05 RATIO Caden RehmanTHYROID II PROFILE (T3U, T4, T7, TSH)[id number] 00:00:00* Test Item Value Reference Range Interpretation Comme nts T3 UPTAKE (test code = 2817) 31.5 % T4 (THYROXINE) (test code = 2819) 7.1 UG/DL CALCULATED T7 (FTI) (test co de = 2820) 2.24 TSH (test code = 2821) 0.348 UIU/ML Caden RehmanCBC W/AUTO [id number] 00:00:00* Test Item Value Reference Range Interpretation Comme nts WBC (test code = 1001) 8.9 K/UL [...] COUNT (test code = 1015) 241 K/UL Caden RehmanMICROALBUMIN/CREATININE, RANDOM AND [id number] 00:00:00* Test Item Value Reference Range Interpretation Comme nts CREATININE, URINE, CONC. (te st code = 2072) 54.0 MG/DL MICROALBUMIN, RANDOM (test c ode = 88875) 0.4 MG/DL CALC MICROALB/CREAT RND (travis t code = 20204) 7 MG/G Caden RehmanHEMOGLOBIN [id number] 00:00:00* Test Item Value Reference Range Interpretation Comme nts HEMOGLOBIN A1c (test code = 79880) 11.4 % Caden RehmanCOMPREHENSIVE METABOLIC [id number] 00:00:00* Test Item Value Reference Range Interpretation Comme nts GLUCOSE (test code = 2217) 349 MG/DL BUN (test code = 2208) 12 MG/DL CREATININE (test code = 2214) 0.63 MG/DL eGFR AMER. (test cod e = 87574) 132 ML/MIN/1.73 eGFR NON- AMER. (test code = 54833) 114 ML/MIN/1.73 CALC BUN/CREAT (test code = 2235) 19 RATIO SODIUM (test code = 2231) 133 MEQ/L POTASSIUM (test code = 2228) 3.7 MEQ/L CHLORIDE (test code = 2215) 95 MEQ/L CARBON DIOXIDE (test code = 2206) 22 MEQ/L CALCIUM (test code = 2209) 9.1 MG/DL PROTEIN, TOTAL (test code = 2229) 7.5 G/DL ALBUMIN (test code = 2201) 3.9 G/DL CALC GLOBULIN (test code = 2240) 3.6 G/DL CALC A/G RATIO (test code = 2234) 1.1 RATIO BILIRUBIN, TOTAL (test code = 2207) 0.3 MG/DL ALKALINE PHOSPHATASE (test code = 2204) 116 U/L AST (test code = 2218) 22 U/L ALT (test code = 2219) 14 U/L Caden RehmanLIPID [id number] 00:00:00* Test Item Value Reference Range Interpretation Comme nts CHOLESTEROL (test code = 2210) 185 MG/DL TRIGLYCERIDES (test code = 2232) 168 MG/DL HDL CHOLESTEROL (test code = 2220) 74 MG/DL CALC LDL CHOL (test code = 2237) 77 MG/DL RISK RATIO LDL/HDL (test cod e = 2238) 1.05 RATIO Caden RehmanTHYROID II PROFILE (T3U, T4, T7, TSH)2017-05-03 00:00:00* Test Item Value Reference Range Interpretation Comme nts T3 UPTAKE (test code = 2817) 31.5 % T4 (THYROXINE) (test code = 2819) 7.1 UG/DL CALCULATED T7 (FTI) (test co de = 2820) 2.24 TSH (test code = 2821) 0.348 UIU/ML Caden Rodriguez AustinHEMOGLOBIN [id number] 00:00:00* Test Item Value Reference Range Interpretation Comme nts HEMOGLOBIN A1c (test code = 89473) 11.4 % COMPREHENSIVE METABOLIC [id number] 00:00:00* Test Item Value Reference Range Interpretation Comme nts GLUCOSE (test code = 2217) 349 MG/DL BUN (test code = 2208) 12 MG/DL CREATININE (test code = 2214) 0.63 MG/DL eGFR AMER. (test cod e = 99000) 132 ML/MIN/1.73 eGFR NON- AMER. (test code = 37603) 114 ML/MIN/1.73 CALC BUN/CREAT (test code = 2235) 19 RATIO SODIUM (test code = 2231) 133 MEQ/L POTASSIUM (test code = 2228) 3.7 MEQ/L CHLORIDE (test code = 2215) 95 MEQ/L CARBON DIOXIDE (test code = 2206) 22 MEQ/L CALCIUM (test code = 2209) 9.1 MG/DL PROTEIN, TOTAL (test code = 2229) 7.5 G/DL ALBUMIN (test code = 2201) 3.9 G/DL CALC GLOBULIN (test code = 2240) 3.6 G/DL CALC A/G RATIO (test code = 2234) 1.1 RATIO BILIRUBIN, TOTAL (test code = 2207) 0.3 MG/DL ALKALINE PHOSPHATASE (test code = 2204) 116 U/L AST (test code = 2218) 22 U/L ALT (test code = 2219) 14 U/L LIPID [id number] 00:00:00* Test Item Value Reference Range Interpretation Comme nts CHOLESTEROL (test code = 2210) 185 MG/DL TRIGLYCERIDES (test code = 2232) 168 MG/DL HDL CHOLESTEROL (test code = 2220) 74 MG/DL CALC LDL CHOL (test code = 2237) 77 MG/DL RISK RATIO LDL/HDL (test cod e = 2238) 1.05 RATIO THYROID II PROFILE (T3U, T4, T7, TSH)2017-05-03 00:00:00* Test Item Value Reference Range Interpretation Comme nts T3 UPTAKE (test code = 2817) 31.5 % T4 (THYROXINE) (test code = 2819) 7.1 UG/DL CALCULATED T7 (FTI) (test co de = 2820) 2.24 TSH (test code = 2821) 0.348 UIU/ML CBC W/AUTO [id number] 00:00:00* Test Item Value Reference Range Interpretation Comme nts WBC (test code = 1001) 8.9 K/UL [...] = 1015) 241 K/UL MICROALBUMIN/CREATININE, RANDOM AND [id number] 00:00:00* Test Item Value Reference Range Interpretation Comme [facility] CREATININE, URINE, CONC. (te st code = 2072) 54.0 MG/DL MICROALBUMIN, RANDOM (test c ode = 04939) 0.4 MG/DL CALC MICROALB/CREAT RND (travis t code = 68446) 7 MG/G HEMOGLOBIN [id number] 00:00:00* Test Item Value Reference Range Interpretation Comme nts HEMOGLOBIN A1c (test code = 86733) 11.4 % COMPREHENSIVE METABOLIC [id number] 00:00:00* Test Item Value Reference Range Interpretation Comme nts GLUCOSE (test code = 2217) 349 MG/DL BUN (test code = 2208) 12 MG/DL CREATININE (test code = 2214) 0.63 MG/DL eGFR AMER. (test cod e = 86262) 132 ML/MIN/1.73 eGFR NON- AMER. (test code = 29597) 114 ML/MIN/1.73 CALC BUN/CREAT (test code = 2235) 19 RATIO SODIUM (test code = 2231) 133 MEQ/L POTASSIUM (test code = 2228) 3.7 MEQ/L CHLORIDE (test code = 2215) 95 MEQ/L CARBON DIOXIDE (test code = 2206) 22 MEQ/L CALCIUM (test code = 2209) 9.1 MG/DL PROTEIN, TOTAL (test code = 2229) 7.5 G/DL ALBUMIN (test code = 2201) 3.9 G/DL CALC GLOBULIN (test code = 2240) 3.6 G/DL CALC A/G RATIO (test code = 2234) 1.1 RATIO BILIRUBIN, TOTAL (test code = 2207) 0.3 MG/DL ALKALINE PHOSPHATASE (test code = 2204) 116 U/L AST (test code = 2218) 22 U/L ALT (test code = 2219) 14 U/L LIPID [id number] 00:00:00* Test Item Value Reference Range Interpretation Comme nts CHOLESTEROL (test code = 2210) 185 MG/DL TRIGLYCERIDES (test code = 2232) 168 MG/DL HDL CHOLESTEROL (test code = 2220) 74 MG/DL CALC LDL CHOL (test code = 2237) 77 MG/DL RISK RATIO LDL/HDL (test cod e = 2238) 1.05 RATIO THYROID II PROFILE (T3U, T4, T7, TSH)2017-05-03 00:00:00* Test Item Value Reference Range Interpretation Comme nts T3 UPTAKE (test code = 2817) 31.5 % T4 (THYROXINE) (test code = 2819) 7.1 UG/DL CALCULATED T7 (FTI) (test co de = 2820) 2.24 TSH (test code = 2821) 0.348 UIU/ML CBC W/AUTO [id number] 00:00:00* Test Item Value Reference Range Interpretation Comme nts WBC (test code = 1001) 8.9 K/UL [...] = 1015) 241 K/UL MICROALBUMIN/CREATININE, RANDOM AND [id number] 00:00:00* Test Item Value Reference Range Interpretation Comme nts CREATININE, URINE, CONC. (te st code = 2071) 54.0 MG/DL MICROALBUMIN, RANDOM (test c ode = 28000) 0.4 MG/DL CALC MICROALB/CREAT RND (travis t code = 37297) 7 MG/G CBC W/AUTO [id number] 00:00:00* Test Item Value Reference Range Interpretation Comme nts WBC (test code = 1001) 8.9 K/UL [...] COUNT (test code = 1015) 241 K/UL Caden Rodriguez AustinMICROALBUMIN/CREATININE, RANDOM AND [id number] 00:00:00* Test Item Value Reference Range Interpretation Comme nts CREATININE, URINE, CONC. (te st code = 2071) 54.0 MG/DL MICROALBUMIN, RANDOM (test c ode = 83440) 0.4 MG/DL CALC MICROALB/CREAT RND (travis t code = 22466) 7 MG/G Caden F AustinHEMOGLOBIN [id number] 00:00:00* Test Item Value Reference Range Interpretation Comme nts HEMOGLOBIN A1c (test code = 82665) 11.4 % Caden RehmanCBC W/AUTO [id number] 00:00:00* Test Item Value Reference Range Interpretation Comme nts WBC (test code = 1001) 8.4 K/UL [...] COUNT (test code = 1015) 253 K/UL Caden RehmanCOMPREHENSIVE METABOLIC [id number] 00:00:00* Test Item Value Reference Range Interpretation Comme nts GLUCOSE (test code = 2217) 289 MG/DL BUN (test code = 2208) 15 MG/DL CREATININE (test code = 2214) 0.54 MG/DL eGFR AMER. (test cod e = 06242) 140 ML/MIN/1.73 eGFR NON- AMER. (test code = 48936) 121 ML/MIN/1.73 CALC BUN/CREAT (test code = 2235) 28 RATIO SODIUM (test code = 2231) 137 MEQ/L POTASSIUM (test code = 2228) 3.7 MEQ/L CHLORIDE (test code = 2215) 96 MEQ/L CARBON DIOXIDE (test code = 2206) 23 MEQ/L CALCIUM (test code = 2209) 8.9 MG/DL PROTEIN, TOTAL (test code = 2229) 7.6 G/DL ALBUMIN (test code = 2201) 4.1 G/DL CALC GLOBULIN (test code = 2240) 3.5 G/DL CALC A/G RATIO (test code = 2234) 1.2 RATIO BILIRUBIN, TOTAL (test code = 2207) 0.3 MG/DL ALKALINE PHOSPHATASE (test code = 2204) 104 U/L AST (test code = 2218) 28 U/L ALT (test code = 2219) 23 U/L Caden RehmanLIPID [id number] 00:00:00* Test Item Value Reference Range Interpretation Comme nts CHOLESTEROL (test code = 2210) 169 MG/DL TRIGLYCERIDES (test code = 2232) 144 MG/DL HDL CHOLESTEROL (test code = 2220) 64 MG/DL CALC LDL CHOL (test code = 2237) 76 MG/DL RISK RATIO LDL/HDL (test cod e = 2238) 1.19 RATIO Caden RehmanTHYROID II PROFILE (T3U, T4, T7, TSH)2016-07-28 00:00:00* Test Item Value Reference Range Interpretation Comme nts T3 UPTAKE (test code = 2817) 30.4 % T4 (THYROXINE) (test code = 2819) 7.8 UG/DL CALCULATED T7 (FTI) (test co de = 2820) 2.37 TSH (test code = 2821) 0.4 UIU/ML Caden RehmanHEMOGLOBIN [id number] 00:00:00* Test Item Value Reference Range Interpretation Comme vince HEMOGLOBIN A1c (test code = 84339) 11.8 % Caden RehmanCBC W/AUTO [id number] 00:00:00* Test Item Value Reference Range Interpretation Comme nts WBC (test code = 1001) 8.4 K/UL [...] COUNT (test code = 1015) 253 K/UL Caden RehmanCOMPREHENSIVE METABOLIC [id number] 00:00:00* Test Item Value Reference Range Interpretation Comme nts GLUCOSE (test code = 2217) 289 MG/DL BUN (test code = 2208) 15 MG/DL CREATININE (test code = 2214) 0.54 MG/DL eGFR AMER. (test cod e = 02186) 140 ML/MIN/1.73 eGFR NON- AMER. (test code = 65856) 121 ML/MIN/1.73 CALC BUN/CREAT (test code = 2235) 28 RATIO SODIUM (test code = 2231) 137 MEQ/L POTASSIUM (test code = 2228) 3.7 MEQ/L CHLORIDE (test code = 2215) 96 MEQ/L CARBON DIOXIDE (test code = 2206) 23 MEQ/L CALCIUM (test code = 2209) 8.9 MG/DL PROTEIN, TOTAL (test code = 2229) 7.6 G/DL ALBUMIN (test code = 2201) 4.1 G/DL CALC GLOBULIN (test code = 2240) 3.5 G/DL CALC A/G RATIO (test code = 2234) 1.2 RATIO BILIRUBIN, TOTAL (test code = 2207) 0.3 MG/DL ALKALINE PHOSPHATASE (test code = 2204) 104 U/L AST (test code = 2218) 28 U/L ALT (test code = 2219) 23 U/L Caden Michael OriLIPID [id number] 00:00:00* Test Item Value Reference Range Interpretation Comme nts CHOLESTEROL (test code = 2210) 169 MG/DL TRIGLYCERIDES (test code = 2232) 144 MG/DL HDL CHOLESTEROL (test code = 2220) 64 MG/DL CALC LDL CHOL (test code = 2237) 76 MG/DL RISK RATIO LDL/HDL (test cod e = 2238) 1.19 RATIO Caden Rodriguez OriHEMOGLOBIN [id number] 00:00:00* Test Item Value Reference Range Interpretation Comme nts HEMOGLOBIN A1c (test code = 86547) 11.8 % CBC W/AUTO [id number] 00:00:00* Test Item Value Reference Range Interpretation Comme nts WBC (test code = 1001) 8.4 K/UL [...] code = 1015) 253 K/UL COMPREHENSIVE METABOLIC [id number] 00:00:00* Test Item Value Reference Range Interpretation Comme nts GLUCOSE (test code = 2217) 289 MG/DL BUN (test code = 2208) 15 MG/DL CREATININE (test code = 2214) 0.54 MG/DL eGFR AMER. (test cod e = 26319) 140 ML/MIN/1.73 eGFR NON- AMER. (test code = 37080) 121 ML/MIN/1.73 CALC BUN/CREAT (test code = 2235) 28 RATIO SODIUM (test code = 2231) 137 MEQ/L POTASSIUM (test code = 2228) 3.7 MEQ/L CHLORIDE (test code = 2215) 96 MEQ/L CARBON DIOXIDE (test code = 2206) 23 MEQ/L CALCIUM (test code = 2209) 8.9 MG/DL PROTEIN, TOTAL (test code = 2229) 7.6 G/DL ALBUMIN (test code = 2201) 4.1 G/DL CALC GLOBULIN (test code = 2240) 3.5 G/DL CALC A/G RATIO (test code = 2234) 1.2 RATIO BILIRUBIN, TOTAL (test code = 2207) 0.3 MG/DL ALKALINE PHOSPHATASE (test code = 2204) 104 U/L AST (test code = 2218) 28 U/L ALT (test code = 2219) 23 U/L LIPID [id number] 00:00:00* Test Item Value Reference Range Interpretation Comme nts CHOLESTEROL (test code = 2210) 169 MG/DL TRIGLYCERIDES (test code = 2232) 144 MG/DL HDL CHOLESTEROL (test code = 2220) 64 MG/DL CALC LDL CHOL (test code = 2237) 76 MG/DL RISK RATIO LDL/HDL (test cod e = 2238) 1.19 RATIO THYROID II PROFILE (T3U, T4, T7, TSH)2016-07-28 00:00:00* Test Item Value Reference Range Interpretation Comme nts T3 UPTAKE (test code = 2817) 30.4 % T4 (THYROXINE) (test code = 2819) 7.8 UG/DL CALCULATED T7 (FTI) (test co de = 2820) 2.37 TSH (test code = 2821) 0.4 UIU/ML HEMOGLOBIN [id number] 00:00:00* Test Item Value Reference Range Interpretation Comme nts HEMOGLOBIN A1c (test code = 83810) 11.8 % CBC W/AUTO [id number] 00:00:00* Test Item Value Reference Range Interpretation Comme nts WBC (test code = 1001) 8.4 K/UL [...] code = 1015) 253 K/UL COMPREHENSIVE METABOLIC [id number] 00:00:00* Test Item Value Reference Range Interpretation Comme nts GLUCOSE (test code = 2217) 289 MG/DL BUN (test code = 2208) 15 MG/DL CREATININE (test code = 2214) 0.54 MG/DL eGFR AMER. (test cod e = 35723) 140 ML/MIN/1.73 eGFR NON- AMER. (test code = 04265) 121 ML/MIN/1.73 CALC BUN/CREAT (test code = 2235) 28 RATIO SODIUM (test code = 2231) 137 MEQ/L POTASSIUM (test code = 2228) 3.7 MEQ/L CHLORIDE (test code = 2215) 96 MEQ/L CARBON DIOXIDE (test code = 2206) 23 MEQ/L CALCIUM (test code = 2209) 8.9 MG/DL PROTEIN, TOTAL (test code = 2229) 7.6 G/DL ALBUMIN (test code = 2201) 4.1 G/DL CALC GLOBULIN (test code = 2240) 3.5 G/DL CALC A/G RATIO (test code = 2234) 1.2 RATIO BILIRUBIN, TOTAL (test code = 2207) 0.3 MG/DL ALKALINE PHOSPHATASE (test code = 2204) 104 U/L AST (test code = 2218) 28 U/L ALT (test code = 2219) 23 U/L LIPID [id number] 00:00:00* Test Item Value Reference Range Interpretation Comme nts CHOLESTEROL (test code = 2210) 169 MG/DL TRIGLYCERIDES (test code = 2232) 144 MG/DL HDL CHOLESTEROL (test code = 2220) 64 MG/DL CALC LDL CHOL (test code = 2237) 76 MG/DL RISK RATIO LDL/HDL (test cod e = 2238) 1.19 RATIO THYROID II PROFILE (T3U, T4, T7, TSH)2016-07-28 00:00:00* Test Item Value Reference Range Interpretation Comme nts T3 UPTAKE (test code = 2817) 30.4 % T4 (THYROXINE) (test code = 2819) 7.8 UG/DL CALCULATED T7 (FTI) (test co de = 2820) 2.37 TSH (test code = 2821) 0.4 UIU/ML THYROID II PROFILE (T3U, T4, T7, TSH)2016-07-28 00:00:00* Test Item Value Reference Range Interpretation Comme nts T3 UPTAKE (test code = 2817) 30.4 % T4 (THYROXINE) (test code = 2819) 7.8 UG/DL CALCULATED T7 (FTI) (test co de = 2820) 2.37 TSH (test code = 2821) 0.4 UIU/ML Caden Michael OriHEMOGLOBIN [id number] 00:00:00* Test Item Value Reference Range Interpretation Comme nts HEMOGLOBIN A1c (test code = 97670) 11.8 % Caden Rehman Notes Date/Time Note Provider Source Caden Rehman [facility]2024-06-10 00:00:00 Caden Rehman [facility]2022-02-14 11:49:[id number] [facility] [place] PATIENT NAME: GLENNA HUBBARD ADMIT DATE: 12/18/21 ACCOUNT NO: [id number] ROOM NO: [facility] AGE: 41 REPORT TYPE: 360 - QUERY RESPONSE DOCUMENT SEX: F DATE OF : 76 ADMITTING PHYSICIAN:Amelia Herr MD ATTENDING PHYSICIAN:Lorena Mclain Provider Query QUERY TEXT: Condition General 360MD Query related questions should be directed to: [facility] Coding Query Helpline Based on your clinical judgement, can you please clarify if Sepsis was confirmed, Sepsis not confirmed, or other more appropriate diagnosis? 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 Hospitalist History and Physical 12/18/2021 sepsis. Hospitalist Progress Note 12/21/2021 left foot ulcer with unstageable ulcer/cellulitis. Hospitalist Discharge Summary 12/23/2021 WBC (4.5 - 12.5 K/mm3) 8.4. ED PHYSICIAN RECORD 12/17/2021 Pulse 100. ED PHYSICIAN RECORD 12/17/2021 Temp 36.5. ED PHYSICIAN RECORD 12/17/2021 Resp 18 ED PHYSICIAN RECORD 12/17/2021 Ceftriaxone IV. MAR Options provided: -- Respond - Create new note now -- Dismiss - Not applicable / Not valid -- Dismiss - Clinically unable to determine / Unknown -- Assign to another provider QUERY RESPONSE: Sepsis not confirmed Query created by: WILFRID NAIDU on 12/28/2021 6:21 AM at 1149 PATIENT NAME: GLENNA HUBBARD 13:31:00 [facility] [place] ([facility]) Hospitalist Discharge Summary REPORT#:[id number] REPORT STATUS: Signed DATE:12/23/21 TIME: 1331 PATIENT: GLENNA HUBBARD UNIT #: [id number] ROOM/BED: [facility]-A : 78 AGE: 41 SEX: F ATTEND: Lroena Mclain ADM AUTHOR: Lorena Mclain MSN * ALL edits or amendments must be made on the electronic/computer document * General Information Date of admission: Observation Start Date: Date of admission: 12/18/21 Discharge date: 12/23/21 Hospital course: left foot ulcer with unstageable ulcer/cellulitis MRI foot noted, concerning for possible osteomyelitis vs stress fracture arterial with mild PAD, [...] ENT: moist mucosal membranes, normal ear left, normal ear right Neck: full range of motion, non-tender, normal thyroid, supple/no meningismus, no bruit/NL carotids, no JVD, no masses or swelling Cardiovascular: normal heart sounds, regular rate rhythm, no murmur Respiratory: aerating well, symmetric expansion, no distress Abdomen: non-tender, soft, no distention, no guarding Extremities: moves all, normal range of motion, no cyanosis Musculoskeletal: normal inspection, painless range of motion Neuro/MUNICIPAL MAINTENANCE WORKER: alert, oriented X 3, CNII-XII intact, normal speech, reflexes equal bilat, no motor deficits, no sensory deficits Skin: dry, intact Psychiatry: normal affect, normal judgment/insight, normal mood, not [...] % (Auto) (25.0 - 55.0 %) 32.0 [place] % (Auto) (0.0 - 10.0 %) 9.1 Eos % (Auto) (0.0 - 5.0 %) 1.8 Baso % (Auto) (0.0 - 1.0 %) 0.5 Neut # (Auto) (1.8 - 7.7 K/mm3) 4.57 Lymph # (Auto) (1.0 - 5.0 K/mm3) 2.62 [place] # (Auto) (0 - 0.8 K/mm3) 0.75 [...] Home/Self Care Additional Discharge Routines: PCP Follow-Up, Redevelopment Specialist Follow-Up Diet: Diabetic, Cardiac Activity: As Tolerated [...] to the best of my knowledge. at 1335 at 1526 RPT #:[id number] END OF [id number] 12:03:00 [facility] Podiatry Progress Note REPORT#:[id number] REPORT STATUS: Signed DATE:12/23/21 TIME: 1203 PATIENT: GLENNA HUBBARD UNIT #: [id number] ROOM/BED: [address] : 78 AGE: 41 SEX: F ATTEND: Lorena Mclain ADM AUTHOR: Grant Laguna DPM * ALL edits or amendments must be made on the electronic/computer document * Subjective HPI: 41 yo female was seen for ulcer on left foot Objective General VS: Last Documented: Result Date Time Pulse Ox 97 12/23 1112 B/P 125/80 12/23 1112 B/P Mean 94.7 12/23 1112 Temp 97.7 12/23 1112 Pulse 85 02 1112 Resp 18 12/23 1112 O2 Delivery Room air 12/23 1055 O2 Flow Rate 8 12/23 1042 PATIENT WEIGHT: Weight (lb): 209 Weight (oz): 7.03 Weight (kg): 95.000 Medications: Active Meds + DC'd Last 24 Hrs Acetaminophen (TYLENOL) 0 .STK-MED ONE PO (DC) Gabapentin (NEURONTIN) 0 .STK-MED ONE .ROUTE (DCr) Acetaminophen (TYLENOL) 0 .STK-MED ONE .ROUTE (DC) Acetaminophen (TYLENOL) 650 MG PACU ONCE ONE PO (DC) Acetaminophen (TYLENOL EXTRA STRENGTH) 500 MG PACU ONCE PRN PRN PO Diphenhydramine HCl (diphenhydrAMINE HCL) 12.5 MG PROCEDURE PRN IV Fentanyl Citrate (SUBLIMAZE INJ. 2ML) 25 MCG Q5M PRN PRN IV Gabapentin (NEURONTIN) 300 MG PACU ONCE ONE PO (DC) Hydrocodone Bitart/Acetaminophen (NORCO 5/325 TABLET) 1 TAB PACU ONCE [...] I O ending at 0700: 02/03 0700 02/ 1900 Intake Total 250 Output Total Balance 250 Intake, Oral 250 Nutrition assessment: The data set between the solid lines has been imported from the dietitian's assessment. Any exceptions have been noted under Provider comments. BMI Calculated: 31.8 Nutrition related diagnosis: Nutrition diagnosis details: Nutrition problem: Nutrition etiology: Nutrition signs and symptoms: Nutrition prescription: Dietitian name: Assessment completed: Provider comments on imported dietitian assessment: Physical Exam Wound/incision: Location: Left foot wound [...] assess: Palpable L posterior tibialis, Palpable L dorsalis pedis Capillary refill: Capillary refill (in seconds): < 3 seconds Left foot Neuro/MUNICIPAL MAINTENANCE WORKER: alert, oriented X 3 Results Findings/Data: Laboratory [...] % (Auto) (25.0 - 55.0 %) 32.0 [place] % (Auto) (0.0 - 10.0 %) 9.1 Eos % (Auto) (0.0 - 5.0 %) 1.8 Baso % (Auto) (0.0 - 1.0 %) 0.5 Neut # (Auto) (1.8 - 7.7 K/mm3) 4.57 Lymph # (Auto) (1.0 - 5.0 K/mm3) 2.62 [place] # (Auto) (0 - 0.8 K/mm3) 0.75 [...] wound. Discussed with patient to have possible debridement, pending arterial doppler results 12/22/2021 arterial doppler results Mild plaque with <50% stenosis in left lower extremity Recommend abx per primary team recommend elevate left lower extremity Discussed with the patient all associated risks, benefits, alternative, I discussed risks which include but not limited to: Non-healing wound, inability to ambulate, further surgeries, infection, blood loss, limb loss and possible life loss. Pt expressed understanding and wish to proceed with the surgery. Pt is scheduled on 12/23/2021 to have left foot excisional removal of devitalized soft tissues NPO ordered 12/23/2021 Patient is cleared from the foot and ankle standpoint for discharge. Patient is to follow-up within 1 week days of discharge. The patient is to call to reestablish an appointment on an outpatient setting. Do not get the area wet. Strict nonweightbearing. Elevation. Recommend antibiotics as per primary care recommendation post op shoe ordered Consultants: podiatry at 2329 RPT #:[id number] END OF [id number] 10:22:00 [facility] [place] ([facility]) Operative Note - Full REPORT#:[id number] REPORT STATUS: Signed DATE:12/23/21 TIME: 1022 PATIENT: GLENNA HUBBARD UNIT #: [id number] ROOM/BED: [address] : 78 AGE: 41 SEX: F ATTEND: Lorena Mclain ADM AUTHOR: Grant Laguna DPM * ALL edits or amendments must be made on the electronic/computer document * Operative Report Start date: 12/23/21 [...] was then prepped and draped in the usual sterile fashion. Left foot [...] The devitalized soft tissues were sent for pathology. The surgical [...] transfer to floor Primary Surgeon: Dr. Laguna Travel Counselor(s): none Anesthesia: general anesthesia Operative findings: 1) devitalized soft tissues 2) flushed with normal saline 3) wound culture taken 4) injected with 18 cc of 1% lidocaine and 0.25% marcaine 5) dressed with adaptic, wet to dry, 4x4 sterile gauze, kerlix Complications: none Estimated blood loss in ml's: less than 5 cc Specimens removed/altered: devitalized soft tissues Implant(s): none at 2328 RPT #:[id number] END OF [id number] 10:19:00 [facility] [place] ([facility]) Brief Op Chidi REPORT#:[id number] REPORT STATUS: Signed DATE:12/23/21 TIME: 1019 PATIENT: GLENNA UHBBARD UNIT #: [id number] ROOM/BED: [address] : 78 AGE: 41 SEX: F ATTEND: Lorena Mclain MSN ADM AUTHOR: Grant Laguna DPM * ALL edits or amendments must be made on the electronic/computer document * Op/Inv Proc Note - Brief Pre-procedure diagnosis: left foot infected neuropathic ulcer Post-procedure diagnosis: same as pre procedure dx Procedures performed: Left foot excisional removal of devitalized soft tissues Primary Surgeon: Dr. Laguna Travel Counselor(s): none Findings: 1) devitalized soft tissues 2) flushed with normal saline 3) wound culture taken 4) injected with 18 cc of 1% lidocaine and 0.25% marcaine 5) dressed with adaptic, wet to dry, 4x4 sterile gauze, kerlix Complications: none Estimated blood loss in ml's: less than 5 cc Specimens removed/altered: devitalized soft tissues at 1021 RPT #:[id number] END OF [id number] 09:20:00 [facility] [place] ([facility]) Post Anesthesia Evaluation REPORT#:[id number] REPORT STATUS: Signed DATE:12/23/21 TIME: 919 PATIENT: GLENNA HUBBARD UNIT #: [id number] ROOM/BED: [address] : 78 AGE: 41 SEX: F ATTEND: Lorena Mclain ADM AUTHOR: Brett Quispe DO * ALL edits or amendments must be made on the electronic/computer document * Post Anesthesia Evaluation Anes. changes from pre-op eval ORM Surgeries: Surgery Date and Time: 12/23/2021 09 Primary Procedure: LT FOOT DEBRIDEMENT Anesthetic: general LMA Date: 12/23/21 Level of consciousness: no change, patient awake, able [...] no change, CV system stable, vital signs stable Respiratory/Airway: respiratory system stable, maintains without support Pain: adequately controlled, pain med. administered Hydration: adequate Temp status: greater than 96.8F Presence of N/V: no Anesthesia complications: no Other changes requiring f/u: none Conclusions: no apparent anes. issues, outpts eval prior DC home at 2352 RPT #:[id number] END OF [id number] 15:43:00 [facility] [place] ([facility]) Podiatry Progress Note REPORT#:[id number] REPORT STATUS: Signed DATE:12/22/21 TIME: 1543 PATIENT: GLENNA HUBBARD UNIT #: [id number] ROOM/BED: [address] : 78 AGE: 41 SEX: F ATTEND: Lorena Mclain MSN ADM AUTHOR: Grant Laguna DPSavanah * ALL edits or amendments must be made on the electronic/computer document * Subjective HPI: 41 yo female was seen for ulcer on left foot. Objective General VS: Last Documented: Result Date Time Pulse Ox 97 12/22 1159 B/P 142/92 12/22 1159 B/P Mean 108.4 12/22 1159 Temp 98.1 12/22 1159 Pulse 88 12/22 1159 Resp 20 12/22 1159 O2 Delivery Room air 12/22 0734 O2 Flow Rate 4 12/20 3474 PATIENT WEIGHT: Weight (lb): 209 Weight (oz): [...] Assessment completed: Provider comments on imported dietitian assessment: Physical Exam General appearance: alert, awake, oriented [...] assess: Palpable L posterior tibialis, Palpable L dorsalis pedis Capillary refill: Capillary refill (in seconds): < 3 seconds Left foot Neuro/MUNICIPAL MAINTENANCE WORKER: alert, oriented X 3 Results Findings/Data: Laboratory [...] wound. Discussed with patient to have possible debridement, pending arterial doppler results 12/22/2021 arterial doppler results Mild plaque with <50% stenosis in left lower extremity Recommend abx per primary team recommend elevate left lower extremity Discussed with the patient all associated risks, benefits, alternative, I discussed risks which include but not limited to: Non-healing wound, inability to ambulate, further surgeries, infection, blood loss, limb loss and possible life loss. Pt expressed understanding and wish to proceed with the surgery. Pt is scheduled on 12/23/2021 to have left foot excisional removal of devitalized soft tissues NPO ordered Consultants: podiatry at 2157 RPT #:[id number] END OF [id number] 15:38:[id number] [facility] [place] PATIENT NAME: GLENNA HUBBARD ADMIT DATE: 12/18/21 ACCOUNT NO: [id number] ROOM NO: [id number] AGE: 41 REPORT TYPE: eNVL ARTERIAL SEX: F DATE OF : 76 ADMITTING PHYSICIAN:Amelia Herr MD ATTENDING PHYSICIAN:Lorena Mclain *[facility]* [address] [place], [place] [address] Limited Lower Extremity Arterial Duplex Study Patient: Glenna Hubbard Study Date: 12/21/2021 BP: Location: [facility] URN: [id number] : 1980 Age: 41 Height: / Gender: F Weight: / BMI/BSA: / *Ordering Physician: Siddharth Bishop *Interpreting Physician: Reilly Hayden MD *Physician Asst: Kristen Dacosta Indications: Gangrene. Study data: Limited lower extremity arterial duplex study. Left evaluation with grayscale 2D imaging, color Doppler imaging, and spectral Doppler analysis. Location: [facility]. Patient status: Inpatient. Patient room number: 3027-A. Study status: Routine. Findings Lower extremity arteries: Left common femoral: The vessel has mixed plaque. Left deep femoral: The vessel has calcified plaque. Left femoral: The proximal vessel has mixed plaque. The mid vessel has mixed plaque. The distal vessel has calcified plaque. Left popliteal: The proximal vessel has calcified plaque. The distal vessel has calcified plaque. Left anterior tibial: The proximal vessel has mixed plaque. The mid vessel has mixed plaque. Left posterior tibial: The proximal vessel has mixed plaque. The mid vessel has mixed plaque. The distal vessel has mixed plaque. Left dorsal pedal: The vessel has calcified plaque. PATIENT NAME: GLENNA HUBBARD Arterial flow: Location PSV* Flow analysis L PHARMACY OPERATIONS MANAGER 176 Triphasic waveform L DFA 98 Triphasic waveform L FA, prox 125 Triphasic waveform L FA, mid 112 Triphasic waveform L FA, distal 127 Triphasic waveform L popliteal, prox 72 Triphasic waveform L popliteal, distal 87 Triphasic waveform L RICE DRIER, prox 106 Triphasic waveform L RICE DRIER, mid 94 Triphasic waveform L RICE DRIER, distal 81 Triphasic waveform L KWADWO, prox 91 Triphasic waveform L KWADWO, mid 100 Triphasic waveform L DPA 67 Triphasic waveform *Velocities are expressed in cm/sec, Diameters are expressed in cm Conclusions Mild plaque with <50% stenosis in left lower extremity Prepared and electronically signed by Reilly Crisostomo MD 12/22/2021 15:38 at 1538 PATIENT NAME: GLENNA HUBBARD 13:02:00 [facility] [place] ([facility]) Hospitalist Progress Note REPORT#:[id number] REPORT STATUS: Signed DATE:12/22/21 TIME: 1302 PATIENT: GLENNA HUBBARD UNIT #: [id number] ROOM/BED: [address] : [birth year] AGE: 41 SEX: F ATTEND: Lorena Mclain MSN ADM AUTHOR: Lorena Mclain MSN * ALL edits or amendments must be made on the electronic/computer document * Subjective Chief complaint: left foot wound, pain controlled, dopplers pending, plan [...] ENT: moist mucosal membranes, normal ear left, normal ear right Neck: full range of motion, non-tender, normal thyroid, supple/no meningismus, no bruit/NL carotids, no JVD, no masses or swelling Cardiovascular: normal heart sounds, regular rate rhythm, no murmur Respiratory: aerating well, symmetric expansion, no distress Abdomen: non-tender, soft, no distention, no guarding Extremities: moves all, normal range of motion, no cyanosis Musculoskeletal: normal inspection, painless range of motion Neuro/MUNICIPAL MAINTENANCE WORKER: alert, oriented X 3, CNII-XII intact, normal speech, reflexes equal bilat, no motor deficits, no sensory deficits Skin: dry, intact Psychiatry: normal affect, normal judgment/insight, normal mood, not homicidal, not suicidal Results Findings/Data: Laboratory Tests 12/22 12/22 12/22 12/21 12/21 1157 0809 0628 2105 1542 Chemistry POC Glucose (74 - 106 mg/dL) 174 H 122 H 147 H 233 H 136 H Results: vital signs reviewed Free Text Obj Notes Free Text Obj Notes: Left foot-patient has swelling around the left ankle [...] Pulses intact negative sensory deficit Diagnosis, Assessment Plan Consultants: podiatry Free Text DxA P Notes Free text DxA P notes: left foot ulcer with unstageable ulcer/cellulitis MRI foot noted, concerning for possible osteomyelitis vs stress fracture arterial/doppler of LLE pending continue Vanco/Rocephin plan for debridement pending dopplers wound care, podiatry following 3. DM2 continue insulin 75/25, SSI HgA1c 13.0 property valuer eval 4. HTN continue Lisinopril, monitor 5. Obesity, BMI 31.8 dietary restrictions Quality: Gen Med Crit Care VTE Prophylaxis VTE prophylaxis initiated: yes (Lovenox) Current Medications Current medication review: I attest that the foregoing medication list in the medical record is true, accurate, and complete to the best of my knowledge. at 1307 at 2145 RPT #:[id number] END OF [id number] 12:50:586724-1171 [facility] [place] PATIENT NAME: GLENNA HUBBARD ADMIT DATE: 12/18/21 ACCOUNT NO: [id number] ROOM NO: V.3027 AGE: 41 REPORT TYPE: eNVL VENOUS ULTRASOUND SEX: F DATE OF : [birth year] ADMITTING PHYSICIAN:Amelia Herr MD ATTENDING PHYSICIAN:Lorena Mclain *[facility]* [address], [place] [address] Limited Lower Extremity Venous Duplex Evaluation Patient: Glenna Hubbard Study Date: 12/21/2021 BP: Location: [facility] URN: [id number] : 1980 Age: 41 Height: / Gender: F Weight: / BMI/BSA: / *Ordering Physician: Siddharth Bishop *Interpreting Physician: * Zana More MD *Physician Asst: Kristen Dacosta Indications: Swelling of limb. Study data: Limited lower extremity venous duplex evaluation. Left evaluation with grayscale 2D imaging, color Doppler imaging, and spectral Doppler analysis. Location: [facility]. Patient status: Inpatient. Patient room number: 3027-A. Study status: Routine. Venous flow and imaging: + + + *Location *Properties * + + + *L CFV *Phasic; spontaneous; normal augmentation; compressible* + + + *L GSV *Phasic; spontaneous; normal augmentation; compressible* + + + *L DFV *Phasic; spontaneous; normal augmentation; compressible* + + + *L FV *Phasic; spontaneous; normal augmentation; compressible* + + + *L popliteal*Phasic; spontaneous; normal augmentation; compressible* PATIENT NAME: GLENNA HUBBARD + + + *L PTV *Phasic; spontaneous; normal augmentation; compressible* + + + *R CFV *Phasic; spontaneous; normal augmentation; compressible* + + + *R GSV *Phasic; spontaneous; normal augmentation; compressible* + + + Conclusions 1. There is no evidence of acute deep or superficial venous thrombosis noted in the left lower extremity. 2. The right common femoral vein fully compresses and demonstrates normal venous flow. 3. THE RIGHT GREAT SAPHENOUS VEIN FULLY COMPRESSES AND DEMONSTRATES NORMAL FLOW. Prepared and electronically signed by Zana More MD 12/22/2021 12:49 at 1250 PATIENT NAME: GLENNA HUBBARD 19:13:00 [facility] Podiatry Progress Note REPORT#:[id number] REPORT STATUS: Signed DATE:12/21/21 TIME: 1912 PATIENT: GLENNA HUBBARD UNIT #: [id number] ROOM/BED: [address] : [birth year] AGE: 41 SEX: F ATTEND: Lorena Mclain MSN ADM AUTHOR: Grant Laguna DPM * ALL edits or amendments must be made on the electronic/computer document * Subjective HPI: 41 yo female [...] 0.9%) 500 ML Miscellaneous Information (VANCOMYCIN PHARMACY TO DOSE) 1 [...] Assessment completed: Provider comments on imported dietitian assessment: Physical Exam General appearance: alert, awake, oriented [...] assess: Palpable L posterior tibialis, Palpable L dorsalis pedis Capillary refill: Capillary refill (in seconds): < 3 seconds Left foot Neuro/MUNICIPAL MAINTENANCE WORKER: alert, oriented X 3 Results Findings/Data: Laboratory [...] wound. Discussed with patient to have possible debridement, pending arterial doppler results Consultants: podiatry at 0900 RPT #:[id number] END OF [id number] 09:59:00 [facility] [place] ([facility]) Hospitalist Progress Note REPORT#:[id number] REPORT STATUS: Signed DATE:12/21/21 TIME: 0959 PATIENT: GLENNA HUBBARD UNIT #: [id number] ROOM/BED: [address] : 78 AGE: 41 SEX: F ATTEND: Lorena Mclain ADM AUTHOR: Siddharth Heaton SENIOR PROJECT MANAGER * ALL edits or amendments must be made on the electronic/computer document * Subjective Chief complaint: left foot [...] awake, oriented Head/Eyes: atraumatic, clear cornea, EOMI, normal conjunctiva/sclera, normal eyelids/periorb., normocephalic, PERRL ENT: normal dentition, normal ear left, normal ear right, normal nose, normal pharynx, normal sinus Neck: full range of motion, non-tender, normal thyroid, supple/no meningismus, no bruit/NL carotids, no JVD, no masses or swelling Cardiovascular: normal capillary refill, normal heart sounds, regular rate rhythm, no ectopy, no gallop, no heave, no murmur, no rub, no thrill Respiratory: aerating well, clear to auscultation, symmetric expansion, no distress Abdomen: non-tender, normal bowel sounds, soft, no distention, no guarding, no hernia, no mass/organomegaly, no rebound Extremities: moves all, normal capillary refill, normal range of motion Musculoskeletal: normal inspection, painless range of motion Neuro/MUNICIPAL MAINTENANCE WORKER: alert, oriented X 3, CNII-XII intact, normal speech, reflexes equal bilat, no motor deficits, no sensory deficits Skin: dry, intact Lymphatics: axilla normal, inguinal normal, neck normal, no lymphadenopathy Psychiatry: normal affect, normal judgment/insight, normal mood, not [...] Left foot-patient has swelling around the left ankle [...] Pulses intact negative sensory deficit Diagnosis, Assessment Plan Problem List/A P: 1. Diabetic foot ulcer 2. Sepsis 3. Uncontrolled hypertension Consultants: podiatry Free Text DxA P Notes Free text DxA P notes: 1. sepsis suspect due to diabetic foot ulcer blood cultures empiric abx 2. diabetic foot ulcer, left podiatry consult MRI foot noted, concerning for possible osteomyelitis vs stress fracture arterial/doppler of LLE pending [...] my knowledge. Advanced Care Plan 65 or Older Discussed with: patient Discussion included: code status (full code) at 1124 at 0916 RPT #:[id number] END OF [id number] 07:05:00 [facility] [place] ([facility]) Pharmacy Prog.Note-Vancomycin REPORT#:[id number] REPORT STATUS: Signed DATE:12/21/21 TIME: 704 PATIENT: GLENNA HUBBARD UNIT #: [id number] [address] AGE: 41 SEX: F ATTEND: Siddharth Heaton NP ADM AUTHOR: Caden Hurst [facility] * ALL edits or amendments must be made on the electronic/computer document * Vancomycin Vancomycin Medication Therapy Goal: trough 10-15 mcg/mL Indication for treatment: DFI Current therapy: vancomycin 1250 mg IV q12h Weight: Actual weight (kg): 95 VS and I/O: Vital Signs Date Temp Pulse Resp B/P B/P Mean Pulse Ox FiO2 12/18-12/21 97.3-98.6 83-95 14-20 109-166/75-100 87.5-120.5 95-99 72 hours ending at 0700 12/21 0700 12/20 1900 12/20 0700 12/19 1900 12/19 12/18 07 1900 Intake 500.00 Total Output Total Balance 500.00 Intake, IV 500.00 Number 1 Voids Patient 95 kg Weight Weight Standing scale Measuremen t Method 72 Hour I O Total 12/21 0712/20 0700 12/19 07 Intake Total 500.00 Output Total Balance 500.00 Labs: Laboratory Tests: 12/20 1455 Toxicology Random Vancomycin (5.0 - 45.0 UG/ML) 8.3 Microbiology: 12/18 1642 NASAL: MRSA Screen - COMP 12/18 746 BLOOD: Blood Culture - RES Treatment plan: consult, initiation of therapy Regimen: Pharmacy consulted to dose vancomycin empirically to goal trough 10-15 mcg/ml for DFI. Pt has been on vancomycin at 1250 mg IV q12h. Trough yesterday resulted at 8.3 mcg/ml, which is below goal. Inc vanc to 1000 mg IV q8h. Pharmacy will continue to follow. at 0706 RPT #:[id number] END OF [id number] 16:29:00 [facility] [place] ([facility]) Podiatry Progress Note REPORT#:[id number] REPORT STATUS: Signed DATE:12/20/21 TIME: 1629 PATIENT: GLENNA HUBBARD UNIT #: [id number] ROOM/BED: [facility] : 78 AGE: 41 SEX: F ATTEND: Siddharth Heaton NP ADM AUTHOR: Grant Laguna DPM * ALL edits or amendments must be made on the electronic/computer document * Subjective HPI: 41 yo female was seen for ulcer on left foot. Objective General VS: Last Documented: Result Date Time Pulse Ox 99 12/20 153 B/P 140/94 12/20 153 B/P Mean 109.1 12/20 1531 O2 Delivery Room air 12/20 1530 Temp 98.1 12/20 153 Pulse 92 12/20 153 Resp 18 12/20 153 PATIENT WEIGHT: Weight (lb): 209 Weight (oz): [...] 0.9%) 500 ML Miscellaneous Information (VANCOMYCIN PHARMACY TO DOSE) 1 [...] Assessment completed: Provider comments on imported dietitian assessment: Physical Exam General appearance: alert, awake, oriented [...] assess: Palpable L posterior tibialis, Palpable L dorsalis pedis Capillary refill: Capillary refill (in seconds): < 3 seconds Left foot Neuro/MUNICIPAL MAINTENANCE WORKER: alert, oriented X 3 Results Findings/Data: Laboratory [...] results pending no significant changes Consultants: podiatry at 2388 RPT #:[id number] END OF [id number] 11:59:00 [facility] [place] ([facility]) Hospitalist Progress Note REPORT#:[id number] REPORT STATUS: Signed DATE:12/20/21 TIME: 1159 PATIENT: GLENNA HUBBARD UNIT #: [id number] ROOM/BED: [place] [address] : 78 AGE: 41 SEX: F ATTEND: Siddharth Heaton NP ADM AUTHOR: Siddharth Heaton NP * ALL edits or amendments must be made on the electronic/computer document * Subjective Chief complaint: left foot wound/swelling/blisters swelling improved pending mri and dopplers Review of Systems All systems rev neg: except as marked Objective General VS/I O: Vital Signs: Date Time Temp Pulse Resp B/P B/P Pulse O2 O2 Flow FiO2 Mean Ox Delivery Rate 12/20 1125 [...] awake, oriented Head/Eyes: atraumatic, clear cornea, EOMI, normal conjunctiva/sclera, normal eyelids/periorb., normocephalic, PERRL ENT: normal dentition, normal ear left, normal ear right, normal nose, normal pharynx, normal sinus Neck: full range of motion, non-tender, normal thyroid, supple/no meningismus, no bruit/NL carotids, no JVD, no masses or swelling Cardiovascular: normal capillary refill, normal heart sounds, regular rate rhythm, no ectopy, no gallop, no heave, no murmur, no rub, no thrill Respiratory: aerating well, clear to auscultation, symmetric expansion, no distress Abdomen: non-tender, normal bowel sounds, soft, no distention, no guarding, no hernia, no mass/organomegaly, no rebound Extremities: moves all, normal capillary refill, normal range of motion Musculoskeletal: normal inspection, painless range of motion Neuro/MUNICIPAL MAINTENANCE WORKER: alert, oriented X 3, CNII-XII intact, normal speech, reflexes equal bilat, no motor deficits, no sensory deficits Skin: dry, intact Lymphatics: axilla normal, inguinal normal, neck normal, no lymphadenopathy Psychiatry: normal affect, normal judgment/insight, normal mood, not homicidal, not suicidal Results Findings/Data: Laboratory Tests 12/20 12/20 12/19 12/19 0754 0612 2036 1707 Chemistry POC Glucose (74 - 106 mg/dL) 236 H 265 H 200 H 292 H Free Text Obj Notes Free Text Obj Notes: Left foot-patient has swelling around the left ankle [...] Pulses intact negative sensory deficit Diagnosis, Assessment Plan Problem List/A [...] my knowledge. Advanced Care Plan 65 or Older Discussed with: patient Discussion included: code status (full code) at 1201 at 4834 [facility] #:[id number] END OF [id number] 14:54:00 [facility] [place] ([facility]) Podiatry Progress Note REPORT#:[id number] REPORT STATUS: Signed DATE:12/19/21 TIME: 1454 PATIENT: GLENNA HUBBARD UNIT #: [id number] ROOM/BED: [place] [address] : 78 AGE: 41 SEX: F ATTEND: Amelia Herr MD ADM AUTHOR: Grant Laguna DPM * ALL edits or amendments must be made on the electronic/computer document * Subjective HPI: 41 yo female [...] 0.9%) 500 ML Miscellaneous Information (VANCOMYCIN PHARMACY TO DOSE) 1 [...] Assessment completed: Provider comments on imported dietitian assessment: Physical Exam General appearance: alert, awake, oriented Wound/incision: Location: Left foot wound noted with eschar base along lateral and dorsal foot with erythema noted, no fluctuant, no mal odor, no tracking, no mal odor Head/Eyes: atraumatic ENT: normal dentition Neck: full range of motion Cardiovascular: normal capillary refill Abdomen: soft, non-tender Genitourinary: not indicated, deferred Extremities: Left moves all, Right moves all LE vascular pulse assess: Palpable L posterior tibialis, Palpable L dorsalis pedis Capillary refill: Capillary refill (in seconds): < 3 seconds Left foot Neuro/MUNICIPAL MAINTENANCE WORKER: alert, oriented X 3 Results Findings/Data: Laboratory [...] % (Auto) (25.0 - 55.0 %) 30.6 [place] % (Auto) (0.0 - 10.0 %) 8.0 Eos % (Auto) (0.0 - 5.0 %) 2.2 Baso % (Auto) (0.0 - 1.0 %) 0.4 Neut # (Auto) (1.8 - 7.7 K/mm3) 3.98 Lymph # (Auto) (1.0 - 5.0 K/mm3) 2.11 [place] # (Auto) (0 - 0.8 K/mm3) 0.55 [...] pending arterial doppler results pending Consultants: podiatry at 0745 RPT #:[id number] END OF [id number] 10:07:00 [facility] [place] ([facility]) Hospitalist Progress Note REPORT#:[id number] REPORT STATUS: Signed DATE:12/19/21 TIME: 1007 PATIENT: GLENNA HUBBARD UNIT #: [id number] ROOM/BED: [place] [address] : 78 AGE: 41 SEX: F ATTEND: Amelia Herr MD ADM AUTHOR: Siddharth Heaton NP * ALL edits or amendments must be made on the electronic/computer document * Subjective Chief complaint: left foot [...] awake, oriented Head/Eyes: atraumatic, clear cornea, EOMI, normal conjunctiva/sclera, normal eyelids/periorb., normocephalic, PERRL ENT: normal dentition, normal ear left, normal ear right, normal nose, normal pharynx, normal sinus Neck: full range of motion, non-tender, normal thyroid, supple/no meningismus, no bruit/NL carotids, no JVD, no masses or swelling Cardiovascular: normal capillary refill, normal heart sounds, regular rate rhythm, no ectopy, no gallop, no heave, no murmur, no rub, no thrill Respiratory: aerating well, clear to auscultation, symmetric expansion, no distress Abdomen: non-tender, normal bowel sounds, soft, no distention, no guarding, no hernia, no mass/organomegaly, no rebound Extremities: moves all, normal capillary refill, normal range of motion Musculoskeletal: normal inspection, painless range of motion Neuro/MUNICIPAL MAINTENANCE WORKER: alert, oriented X 3, CNII-XII intact, normal speech, reflexes equal bilat, no motor deficits, no sensory deficits Skin: dry, intact Lymphatics: axilla normal, inguinal normal, neck normal, no lymphadenopathy Psychiatry: normal affect, normal judgment/insight, normal mood, not [...] Albumin/Globulin Ratio (0.75 - 1.50) 0.8 12/18 1928 Chemistry POC Glucose (74 - 106 mg/dL) 223 H Laboratory Tests 12/19 0727 Hematology WBC (4.5 - 12.5 K/mm3) 6.9 [...] % (Auto) (25.0 - 55.0 %) 30.6 [place] % (Auto) (0.0 - 10.0 %) 8.0 Eos % (Auto) (0.0 - 5.0 %) 2.2 Baso % (Auto) (0.0 - 1.0 %) 0.4 Neut # (Auto) (1.8 - 7.7 K/mm3) 3.98 Lymph # (Auto) (1.0 - 5.0 K/mm3) 2.11 [place] # (Auto) (0 - 0.8 K/mm3) 0.55 Eos # (Auto) (0.0 - 0.5 K/mm3) 0.15 Baso # (Auto) (0.0 - 0.2 K/mm3) 0.03 Add Manual Diff NO Nucleated RBC % (0 - 0 %) 0.0 Nucleated RBCs # (Man) (0.0 - 0.1 K/mm3) 0.00 Free Text Obj Notes Free Text Obj Notes: Left foot-patient has swelling around the left ankle [...] Pulses intact negative sensory deficit Diagnosis, Assessment Plan Problem List/A [...] my knowledge. Advanced Care Plan 65 or Older Discussed with: patient Discussion included: code status (full code) at 1312 at 0740 RPT #:[id number] END OF [id number] 15:06:00 [facility]) Pharmacy Prog.Note-Vancomycin REPORT#:[id number] REPORT STATUS: Signed DATE:12/18/21 TIME: 1506 PATIENT: GLENNA HUBBARD UNIT #: [id number] ROOM/BED: [place] [address] : 78 AGE: 41 SEX: F ATTEND: Amelia Herr MD ADM AUTHOR: Enmanuel Tarango [facility] * ALL edits or amendments must be made on the electronic/computer document * Vancomycin Vancomycin Medication Therapy Goal: trough 10-15 mcg/mL Treatment plan: consult Regimen: INDICATION: DFU L FT VIT: AFEB, VSS WBC: 8.4 SCr 0.8 CX: AWAIT BCX UCX IMAGE: XR REVIEWED, AWAIT MRI START 1.25G Q12H Electronically Signed by Enmanuel Tarango [facility] on 12/18/21 at 1506 RPT #:[id number] END OF [id number] 13:49:00 [facility] [place] ([facility]) Podiatry Consult Note REPORT#:[id number] REPORT STATUS: Signed DATE:12/18/21 TIME: 1349 PATIENT: GLENNA HUBBARD UNIT #: [id number] ROOM/BED: [place] [address] : 78 AGE: 41 SEX: F ATTEND: Amelia Herr MD ADM AUTHOR: Grant Laguna DPM * ALL edits or amendments must be made on the electronic/computer document * History of Present Illness Requesting clinician: Mica FERRER Reason for consult: diabetic wound Free Text HPI Notes Free Text HPI Notes: 41 yo female PMH of with type 1 diabetes. Patient reports she was in [place] and rub alove leave it on her feet and within 30 minutes her left foot dorsum blistered up. She was seen by a doctor in [place] on the and was prescribed dexamethasone and abx. Pt reports the wound is not getting better. She was seen by the manager fleet and was recommended to go to ED for further evalutation for possible osteomyelitis. History - Adult longitudinal Past medical history: Reports: Diabetes mellitus, Hypertension. Additional medical history: history of obesity BMI 31.8, insulin-dependent diabetes on insulin 70/30 10 units twice daily, Metformin 1000 mg twice daily and glipizide, hypertension previously on lisinopril which was discontinued Additional surgical history: Cholecystectomy, x4, right fifth toe amputation 2019, umbilical incisional hernia repair, bilateral tubal ligation, right oophorectomy from recurrent ovarian cysts Additional family history: Mother at age 71 had diabetes end-stage renal disease Father at age 70 of congestive heart failure Alcohol use: Denies EtOH use Drug use: Denies recreational drugs Smoking status: Smoking status for patients 13 years old or older: Never Smoker Additional social history: Resides at home with her and family ambulates independently independent of all ADLs Allergies: Coded Allergies: No Known Allergies (12/17/21) Review of Systems Constitutional: Denies: chills, fatigue, fever, generalized weakness, lethargy. Cardiovascular: Denies: chest pain, SCHMID (dyspnea [...] (DC) Acetaminophen (TYLENOL EXTRA STRENGTH) 500 MG Q6H [...] Assessment completed: Provider comments on imported dietitian assessment: Physical Exam General appearance: alert, awake, oriented Wound/incision: Location: Left foot wound noted with eschar base along lateral and dorsal foot with erythema noted, no fluctuant, no mal odor, no tracking, no mal odor Head/Eyes: atraumatic ENT: normal dentition Neck: full range of motion Cardiovascular: normal capillary refill Abdomen: soft, non-tender Genitourinary: not indicated, deferred Extremities: Left moves all, Right moves all LE vascular pulse assess: Palpable L posterior tibialis, Palpable L dorsalis pedis Capillary refill: Capillary refill (in seconds): < 3 seconds Left foot Edema: pitting Left foot Neuro/MUNICIPAL MAINTENANCE WORKER: alert, oriented X 3 Results Findings/Data: Laboratory [...] % (Auto) (25.0 - 55.0 %) 34.1 [place] % (Auto) (0.0 - 10.0 %) 7.9 Eos % (Auto) (0.0 - 5.0 %) 2.0 Baso % (Auto) (0.0 - 1.0 %) 0.5 Neut # (Auto) (1.8 - 7.7 K/mm3) 4.59 Lymph # (Auto) (1.0 - 5.0 K/mm3) 2.86 [place] # (Auto) (0 - 0.8 K/mm3) 0.66 [...] pH (5.0 - 8.0) 5.5 Ur Specific [place] (1.001 - 1.035) 1.044 Urine Protein (NEGATIVE [...] evidence of acute cardiothoracic abnormalities. Location code: Impression By: Shaka Duarte M.D. RADIOLOGY - XR FOOT 3 + V LT 12/17 2129 Report Impression - Status: SIGNED Entered: 12/17/20212206 IMPRESSION: No acute abnormality by plain film. Small heel spur. Impression By: Esteban Mcelroy M.D. Diagnosis, Assessment [...] Thank you for the consultation Consultants: podiatry at 2314 RPT #:[id number] END OF [id number] 13:34:00 [facility] [place] ([facility]) Hospitalist Progress Note REPORT#:[id number] REPORT STATUS: Signed DATE:12/18/21 TIME: 1334 PATIENT: GLENNA HUBBARD UNIT #: [id number] ROOM/BED: [place] [address] : 78 AGE: 41 SEX: F ATTEND: Amelia Herr MD ADM AUTHOR: Siddharth Heaton NP * ALL edits or amendments must be made on the electronic/computer document * Subjective Chief complaint: left foot [...] awake, oriented Head/Eyes: atraumatic, clear cornea, EOMI, normal conjunctiva/sclera, normal eyelids/periorb., normocephalic, PERRL ENT: normal dentition, normal ear left, normal ear right, normal nose, normal pharynx, normal sinus Neck: full range of motion, non-tender, normal thyroid, supple/no meningismus, no bruit/NL carotids, no JVD, no masses or swelling Cardiovascular: normal capillary refill, normal heart sounds, regular rate rhythm, no ectopy, no gallop, no heave, no murmur, no rub, no thrill Respiratory: aerating well, clear to auscultation, symmetric expansion, no distress Abdomen: non-tender, normal bowel sounds, soft, no distention, no guarding, no hernia, no mass/organomegaly, no rebound Extremities: moves all, normal capillary refill, normal range of motion Musculoskeletal: normal inspection, painless range of motion Neuro/MUNICIPAL MAINTENANCE WORKER: alert, oriented X 3, CNII-XII intact, normal speech, reflexes equal bilat, no motor deficits, no sensory deficits Skin: dry, intact Lymphatics: axilla normal, inguinal normal, neck normal, no lymphadenopathy Psychiatry: normal affect, normal judgment/insight, normal mood, not homicidal, not suicidal Free Text Obj Notes Free Text Obj Notes: Left foot-patient has swelling around the left ankle [...] Pulses intact negative sensory deficit Diagnosis, Assessment Plan Problem List/A [...] my knowledge. Advanced Care Plan 65 or Older Discussed with: patient Discussion included: code status (full code) at 1341 at 9556 RPT #:[id number] END OF [id number] 01:25:00 [facility] [place] ([facility]) Hospitalist History Physical REPORT#:[id number] REPORT STATUS: Signed DATE:12/18/21 TIME: 124 PATIENT: GLENNA HUBBARD UNIT #: [id number] ROOM/BED: [place] [address] : 78 AGE: 41 SEX: F ATTEND: Amelia Herr MD ADM AUTHOR: Amelia Herr MD * ALL edits or amendments must be made on the electronic/computer document * History of Present Illness HPI Chief complaint: Left foot wound since November 17, 2021 PCP: PCP: Bnejamin Rmairez MD HPI: Patient is a 41-year-old female with no known PCP. She has a history of obesity BMI 31.8, insulin-dependent diabetes on insulin 70/30 10 units twice daily, Metformin 1000 mg twice daily and glipizide, hypertension previously on lisinopril which was discontinued. Patient on November 17, 2012 when she was in [place] at her pyhvad-vo-vuj's house when she went out back and there was aloe plant and she decided to rub it on her feet and within 30 minutes her left foot dorsum blistered up and it started swelling the next day so she went on the to a doctor in [place] and he wrote her a prescription for [...] had no other treatment and saw the manager fleet Monday morning December 17 and he referred her to the emergency room. She got the Covid vaccine 2 injections but she actually had Covid June 2020 was hospitalized at [facility] for 3 weeks. She denied any fevers or chills no cough or congestion no chest pain no shortness of [...] I replaced. Renal functions normal GFR greater than 60 glucose 320 LFTs are normal except alk phos 160 and troponin is negative. Code sepsis called by ER patient was given Rocephin and vancomycin and had blood cultures x2 urine culture sent. Patient will get MRI of the foot and podiatry has been consulted continue Rocephin 1 g IV daily. X-ray of the foot was negative chest x-ray was negative. Review of systems otherwise negative Informant/historian: patient History Past Medical Surgical Hx Patient History: 1. Uncontrolled hypertension 2. Sepsis 3. Diabetic foot ulcer Additional medical history: history of obesity BMI 31.8, insulin-dependent diabetes on insulin 70/30 10 units twice daily, Metformin 1000 mg twice daily and glipizide, hypertension previously on lisinopril which was discontinued Additional surgical history: Cholecystectomy, x4, right fifth toe amputation 2019, umbilical [...] patients 13 years old or older: Never Smoker Additional social history: Resides at home with her and family ambulates independently independent of all ADLs Medication/Allergy-Vaccine Hx Allergies: Coded Allergies: No Known Allergies (12/17/21) Review of Systems Constitutional: Denies: chills, fatigue, fever, generalized weakness, lethargy, malaise, recent wt loss, other. Skin: Reports: swelling (left foot and ankle), other (left foot 2 wounds). Denies: abrasion, bruising, contusion, diaphoresis, ecchymosis, itching, laceration, rash. Allergy/Immun: Denies: allergic reaction, anaphylaxis, hives, itching, rhinorrhea, sneezing, other. Eyes: Denies: redness, discharge, visual loss/blurred, itching, diplopia, eye pain, photophobia, swelling, other. ENT: Denies: ear drainage, ear ringing, earache, hearing loss, mouth pain, nasal congestion, nose bleeding, sinus problem, sore throat, throat pain, throat swelling, tongue pain, tongue swelling, toothache, voice change, other. Respiratory: Denies: SCHMID (dyspnea on exertion), hemoptysis, non productive cough, parox nocturnal dyspnea, pleurisy, pleuritic pain, pneumonia, productive cough (sputum ), SOB, wheezing, other. Cardiovascular: Denies: chest pain, SCHMID (dyspnea on exertion), edema, orthopnea, palpitations, parox nocturnal dyspnea, other. GI: Denies: abdominal pain, anorexia, constipation, diarrhea, dysphagia, GERD, hematemesis, hematochezia, hiatal hernia, melena, nausea, rectal pain, vomiting, other. : Denies: dysuria, flank pain, frequency, hematuria, nocturia, pelvic pain, , urgency, urinary retention, vaginal bleeding, vaginal discharge, other. Musculoskeletal: Reports: extremity swelling (left foot), joint swelling (left ankle). Denies: arthritis, extremity pain, joint pain, lumbar pain, myalgias, neck pain, thoracic pain, other. Neuro: Denies: bladder dysfunction, bowel dysfunction, change in LOC, confusion, dizziness, focal weakness, gait problem, headache, lightheaded, numbness, seizure, slurred speech, spinning sensation, syncope, unable to speak, vision change, weakness, other. Psych: Denies: agitation, anxiety, auditory hallucination, change in mental status, confusion, delusional, depression, homicidal ideation, hostile, insomnia, stress , suicidal ideation, visual hallucination, other. All systems rev neg: except as noted [...] obese, alert, awake, oriented, pleasant, conversational, mental status normal, no respiratory distress Head/Eyes: atraumatic, clear cornea, EOMI, normal conjunctiva/sclera, normal eyelids/periorb., normocephalic, PERRL ENT: normal dentition, normal ear left, normal ear right, normal nose, normal pharynx, normal sinus Neck: full range of motion, non-tender, normal thyroid, supple/no meningismus, no bruit/NL carotids, no JVD, no masses or swelling Cardiovascular: normal capillary refill, normal heart sounds, regular rate rhythm, no ectopy, no gallop, no heave, no murmur, no rub, no thrill Respiratory: aerating well, clear to auscultation, symmetric expansion, no distress Abdomen: non-tender, normal bowel sounds, soft, no distention, no guarding, no hernia, no mass/organomegaly, no rebound Abdomen quadrants: LLQ normal bowel sounds, LUQ normal bowel sounds, RLQ normal bowel sounds, RUQ normal bowel sounds Extremities: moves all, normal capillary refill, normal range of motion Musculoskeletal: normal inspection, painless range of motion Neuro/MUNICIPAL MAINTENANCE WORKER: alert, oriented X 3, CNII-XII intact, normal speech, reflexes equal bilat, no motor deficits, no sensory deficits Lymphatics: axilla normal, inguinal normal, neck normal, no lymphadenopathy Psychiatry: normal affect, normal judgment/insight, normal mood, not homicidal, not suicidal Results Findings/Data: Laboratory Tests: 12/18 12/17 12/17 0053 2114 2114 Chemistry Sodium (136 - 145 [...] % (Auto) (25.0 - 55.0 %) 34.1 [place] % (Auto) (0.0 - 10.0 %) 7.9 Eos % (Auto) (0.0 - 5.0 %) 2.0 Baso % (Auto) (0.0 - 1.0 %) 0.5 Neut # (Auto) (1.8 - 7.7 K/mm3) 4.59 Lymph # (Auto) (1.0 - 5.0 K/mm3) 2.86 [place] # (Auto) (0 - 0.8 K/mm3) 0.66 [...] pH (5.0 - 8.0) 5.5 Ur Specific [place] (1.001 - 1.035) 1.044 Urine Protein (NEGATIVE [...] evidence of acute cardiothoracic abnormalities. Location code: Impression By: Shaka Duarte M.D. RADIOLOGY - XR FOOT 3 + V LT 12/17 2129 Report Impression - Status: SIGNED Entered: 12/17/20212206 IMPRESSION: No acute abnormality by plain film. Small heel spur. Impression By: Esteban Mcelroy M.D. Results: labs reviewed, vital signs reviewed, vital signs stable Free Text PE Notes Free Text PE Notes: Left foot-patient has swelling around the left ankle [...] Pulses intact negative sensory deficit Diagnosis, Assessment Plan Problem List/A [...] and glipizide. We will do Accu-Cheks with high- dose Humalog coverage 3) uncontrolled hypertension-patient will be restarted on lisinopril 10 mg daily. Both to help control the blood pressure but also for renal protection in diabetics. Will monitor blood pressure closely and adjust medication as needed. 4) DVT prophylaxis-patient has been placed on sequential moderate compression device Consultants: podiatry Plan discussed with: patient Quality[facility] Prophylaxis VTE prophylaxis initiated: yes (mechanical comp device) Current Medications Current medication review: I attest that the foregoing medication list in the medical record is true, accurate, and complete to the best of my knowledge. Advanced Care Plan 65 or Older Discussed with: patient Discussion included: code status (full code) at 0146 RPT #:[id number] END OF [id number] 21:25:00 [facility] ([facility]) EMERGENCY PROVIDER REPORT REPORT#:[id number] REPORT STATUS: Signed DATE:12/17/21 TIME: 2124 PATIENT: GLENNA HUBBARD UNIT #: [id number] ROOM/BED: [facility]-A AGE: 41 SEX: F PCP PHYS: Benjamin Ramirez MD SERVICE AUTHOR: Zachery Nino * ALL edits or amendments must be made on the electronic/computer document * Mica12/17/215: HPI-Foot Prob/Inj Free Text HPI Notes Free Text HPI Notes 41-year-old female with history of diabetes and hypertension presents to ED with left foot wound since 11/17/2022. Patient was seen in [place] with moxifloxacin and ceftriaxone with betamethasone prescribed, last dose 2 weeks ago. Patient was seen by her PCP, SRINIVASA in [place], and referred to manager fleet, Dr. Rockwell-seen today and sent to ED [...] Stated Complaint PAIN ANDSWELLING TO LT FTSENT BY PCP FOR ADMIT Allergies Coded Allergies: No Known Allergies (12/17/21) Home Medications Reported Medications metFORMIN (GLUCOPHAGE) 1,000 MG PO BID glipiZIDE (GLUCOTROL) 10 MG PO BID Insulin Aspart Prot/Insuln Asp (NovoLOG Mix 70-30 FLEXPEN (15mL)) Discontinued Reported Medications [INSULIN] Review of Nursing Notes Triage notes reviewed Pt reports no significant: Past surgical history, Social history Past Medical History: Reports: Diabetes [...] Speech NL, No motor deficits, No sensory deficits Images Ankle/Foot Feet - Top View (L) [Embedded Image Not Available] 1) Wound Interpretation Diagnostics Lab Results Interpretation Results Laboratory Tests 12/17/212113: [Embedded Image Not Available] Laboratory Tests: 12/18 12/17 12/17 0053 2113 2113 [...] % (Auto) (25.0 - 55.0 %) 34.1 [place] % (Auto) (0.0 - 10.0 %) 7.9 Eos % (Auto) (0.0 - 5.0 %) 2.0 Baso % (Auto) (0.0 - 1.0 %) 0.5 Neut # (Auto) (1.8 - 7.7 K/mm3) 4.59 Lymph # (Auto) (1.0 - 5.0 K/mm3) 2.86 [place] # (Auto) (0 - 0.8 K/mm3) 0.66 [...] pH (5.0 - 8.0) 5.5 Ur Specific [place] (1.001 - 1.035) 1.044 Urine Protein (NEGATIVE [...] evidence of acute cardiothoracic abnormalities. Location code: Impression By: Shaka Duarte M.D. RADIOLOGY - XR FOOT 3 + V LT 12/17 2129 Report Impression - Status: SIGNED Entered: 12/17/20212206 IMPRESSION: No acute abnormality by plain film. Small heel spur. Impression By: Esteban Mcelroy M.D. Lab Imaging Statement Laboratory radiographic studies reviewed and considered in the medical decision-making. Point of Care Testing Pulse Oximetry Pulse Ox % 99 On: Room air Interpretation Interpreted by me, Pulse oximetry normal Re-Evaluation MDM Re-Evaluation/Progress Compartment Syndrome There are no signs or symptoms of compartment syndrome in the injured extremity at the time of this examination. Any pain the patient has is in proportion to the injury, the peripheral circulation is intact, capillary refill is not delayed, and there is no numbness, tingling or paresthesia. Tissue Perfusion Reassessment Patient tissue perfusion reassessment [...] 12/17 Consultation Consultation Referral/Consult Name Grant Laguna DPSavanah Redevelopment Specialist Called PODIATRY Requested Call Time 0030 Requested Call Date 12/18/21 Redevelopment Specialist Will see patient, Agrees with eval, Agrees [...] entry have been reviewed. Condition Stable Clinical Impression Clinical Impression Primary Impression: Diabetic foot ulcer Disposition Decision Admit Admit Physician Name Amelia Herr MD Admit Physician Hospitalist Request Time 1244 Request Date 12/18/21 )( Admission Accepts Yes )( Accepted Time 004 )( Accepted Date 12/18/21 Call Information will see patient, agrees with eval, agrees with plan Discharge/Care Plan Counseled Regarding Diagnosis, Lab results, Imaging studies, Need for admission Admit Note I have spoken with the patient and/or caregivers. I have explained the patient's condition, diagnoses and treatment plan based on the information available to me at this time. I have answered the patient's and/or caregiver's questions and addressed any concerns. The patient and/or caregivers have as good an understanding of the patient's diagnosis, condition and treatment plan as can be expected at this point. The patient has been stabilized within the capability of the emergency department. The patient will be transported for further care and management or will be moved to an observation or inpatient service. I have communicated with the staff or medical practitioner taking over this patient's care. Quality Measures BP F/U for HTN F/u with PCP/other doc, Pre-existing HTN Smoking Cessation Screened, non user Tobacco Screening/Cessation 18 years or older, Denies tobacco use Brandy Carrillo 12/22/212044: Patient Discharge Departure Supervising Physician Note MidLv Saw Pt Alone I have reviewed the PA/SENIOR PROJECT MANAGER's note and plan of care. I was available for consultation as needed at all times during the patient's visit in the emergency department. I agree with the clinical impression, plan and disposition. at 0427 at 2045 RPT #:[id number] [facility]
--- NOTE | 2025-02-13 09:24 | EDPHYS ---
Physician Documentation [facility] Name: Glenna Finney Age: 44 yrs Sex: Female : 1980 Arrival Date: 02/13/2025 Time: 09:06 Bed 6 Private MD: ED Physician Collin Fernández HPI: 02/13 09:30 This 44 yrs old Female presents to ER via Ambulatory with complaints of Wound rt Recheck. 09:30 Patient presents to the ED with 3 days of a wound to the right foot. Patient has had rt previous wounds to that area requiring wound care by Dr. Velazco. States that she has an appointment with him on Monday. Reports a small amount of clear drainage that is not malodorous. Denies purulent drainage, surrounding erythema. Denies other acute complaints at this time, symptoms are mild in severity, no other aggravating or alleviating factors.. Historical: - Allergies: 09:20 No Known Allergies; ss - PMHx: 09:20 Diabetes - NIDDM; Hypertension; ss - Immunization history:: Adult Immunizations unknown. - Infectious Disease History:: Denies. - Social history:: Smoking status: Patient reports the use of cigarette tobacco products, 2 cigarettes/ day. - Family history:: not pertinent. ROS: 09:30 Constitutional: Negative for fever, chills, and weight loss, MS/Extremity: Negative for rt injury and deformity, Neuro: Negative for headache, weakness, numbness, tingling, and seizure, Psych: Negative for depression, anxiety, suicide ideation, homicidal ideation, and hallucinations, 09:30 Skin: Positive for Wound, negative for cellulitis, Exam: 09:30 Constitutional: This is a well developed, well nourished patient who is awake, alert, rt and in no acute distress. Head/Face: Normocephalic, atraumatic. Neuro: Awake and alert, GCS 15, oriented to person, place, time, and situation. Cranial nerves II-XII grossly intact. Motor strength 5/5 in all extremities. Sensory grossly intact. Cerebellar exam normal. Normal gait. Psych: Awake, alert, with orientation to person, place and time. Behavior, mood, and affect are within normal limits. 09:30 Musculoskeletal/extremity: To the plantar region of the right foot, there is about a 3 cm partial-thickness split to the skin just distal to the previous scar. There is no surrounding erythema, no drainage noted. Pulses, motor, sensation are intact. Vital Signs: 09:18 BP 189 / 120; Pulse 97; Resp 16; Temp 97.7(O); Pulse Ox 98% on R/A; Weight 90.72 kg; ss Height 5 ft. 8 in. ; Pain 0/10; 09:28 BP 172 / 100; Pulse 94; Resp 18; Temp 97.7; Pulse Ox 98% on R/A; ph 09:18 Body Mass Index 30.41 (90.72 kg, 172.72 cm) ss 09:18 Pain Scale: Adult ss MDM: 09:16 Medical Screening Exam initiated rt 09:30 Differential diagnosis: Wound, wound infection. Data reviewed: vital signs, nurses rt notes. Test considered but Not performed: Other Details Patient is a partial-thickness split to the skin, the skin appears somewhat macerated but there is no clinical signs to suggest arterial occlusion, cellulitis, wound infection. I discussed this with the patient. At this time, I do not believe that imaging, labs are indicated, believe that she is stable to continue wound care as she had been doing previously and to follow-up as an outpatient for wound care as already scheduled.. Care significantly affected by the following chronic conditions: Diabetes. Counseling: I had a detailed discussion with the patient and/or guardian regarding the historical points, exam findings, and any diagnostic results supporting the discharge/admit diagnosis, the need for outpatient follow up, to return to the emergency department if symptoms worsen or persist or if there are any questions or concerns that arise at home, Patient to return for any signs or symptoms of infection. 02/13 09:23 Order name: Dressing - Wound; Complete Time: rt Administered Medications: :30 Drug: Mupirocin Topical Ointment 2 % 1 application Topical once Route: Topical; Site: ph affected area; Disposition Summary: 02/13/25 09:24 Discharge Ordered Notes: Location: Home rt Problem: new rt Symptoms: are unchanged rt Condition: Stable rt Diagnosis - Wound to right foot rt Followup: rt - With: Hong Velazco MD - When: 5 - 6 days - Reason: Discharge Instructions: - Discharge Summary Sheet rt - Wound Care, Adult rt Forms: - Medication Reconciliation Form rt - Antibiotic Education rt - Prescription Opioid Use rt - Patient Portal Instructions rt - Leadership Thank You Letter rt Signatures: Chiqui Huerta, RN RN Jocy Patel RN RN Collin Fernández MD MD rt
--- NOTE | 2025-02-13 09:24 | ER ---
Nurse's Notes [facility] Name: Glenna Finney Age: 44 yrs Sex: Female : 1980 Arrival Date: 02/13/2025 Time: 09:06 Bed 6 Private MD: Diagnosis: Wound to right foot Presentation: 02/13 09:18 Chief complaint: Patient states: Scar on bottom of R foot opened up 3 days ago. Denies ss pain. Reports small amount of drainage. Coronavirus screen: Client denies travel out of the [place] in the last 14 days. Ebola Screen: Patient denies exposure to infectious person. Patient denies travel to an Ebola-affected area in the 21 days before illness onset. Initial Sepsis Screen: Does the patient meet any 2 criteria? No. Patient's initial sepsis screen is negative. Does the patient have a suspected source of infection? No. Patient's initial sepsis screen is negative. Risk Assessment: Do you want to hurt yourself or someone else? Patient reports no desire to harm self or others. Onset of symptoms was February 10, 2025. 09:18 Acuity: GIGI 3 ss 09:18 Method Of Arrival: Ambulatory ss Historical: - Allergies: 09:20 No Known Allergies; ss - PMHx: 09:20 Diabetes - NIDDM; Hypertension; ss - Immunization history:: Adult Immunizations unknown. - Infectious Disease History:: Denies. - Social history:: Smoking status: Patient reports the use of cigarette tobacco products, 2 cigarettes/ day. - Family history:: not pertinent. Screenin: [facility] ED Fall Risk Assessment (Adult) History of falling in the last 3 months, ph including since admission No falls in past 3 months (0 pts) Confusion or Disorientation No (0 pts) Intoxicated or Sedated No (0 pts) Impaired Gait No (0 pts) Mobility Assist Device Used No (0 pt) Altered Elimination No (0 pt) Score/Fall Risk Level 0 - 2 = Low Risk Oriented to surroundings, Maintained a safe environment, Hourly rounding (assess needs \T\ fall precautionary measures) done. Abuse screen: Denies threats or abuse. Denies injuries from another. Nutritional screening: No deficits noted. Tuberculosis screening: No symptoms or risk factors identified. Assessment: : General: Appears in no apparent distress. comfortable, well groomed, Behavior is calm, ph cooperative, appropriate for age. Pain: Complains of pain in right foot. Neuro: Level of Consciousness is awake, alert, obeys commands, Oriented to person, place, time, situation. Cardiovascular: Capillary refill < 3 seconds in bilateral fingers. Respiratory: Airway is patent Respiratory effort is even, unlabored. Derm: Skin is pink, warm \T\ dry. Derm: Wound noted ball of right foot. Musculoskeletal: Amputation of Other: TOES TO R FOOT Circulation, motion, and sensation intact. Range of motion: intact in all extremities. 09:32 Reassessment: No changes from previously documented assessment. Patient and/or family ll1 updated on plan of care and expected duration. Pain level reassessed. Patient is alert, oriented x 3, equal unlabored respirations, skin warm/dry/pink. Vital Signs: 09:18 BP 189 / 120; Pulse 97; Resp 16; Temp 97.7(O); Pulse Ox 98% on R/A; Weight 90.72 kg; ss Height 5 ft. 8 in. ; Pain 0/10; 09:28 BP 172 / 100; Pulse 94; Resp 18; Temp 97.7; Pulse Ox 98% on R/A; ph 09:18 Body Mass Index 30.41 (90.72 kg, 172.72 cm) ss 09:18 Pain Scale: Adult ss ED Course: 09:10 Patient arrived in ED. cj3 09:11 Collin Fernández MD is Attending Physician. rt 09:19 Jocy Patel RN is Primary Nurse. ph 09:20 Triage completed. ss 09:20 Arm band placed on right wrist. ss 09:22 Patient has correct armband on for positive identification. Bed in low position. Call ph light in reach. Side rails up X 1. Pulse ox on. NIBP on. 09:23 Hong Velazco MD is Referral Physician. rt 09:29 No provider procedures requiring assistance completed. Patient did not have IV access ph during this emergency room visit. 09:31 Wound care: to decubitus located on right foot was dressed with Neosporin, non adherent ll1 dressing, secured with 3M tape, Patient tolerated well. Administered Medications: 09:30 Drug: Mupirocin Topical Ointment 2 % 1 application Topical once Route: Topical; Site: ph affected area; Medication: 09:22 VIS not applicable for this client. ph Outcome: 09:24 Discharge ordered by . rt :38 Discharged to home ambulatory, ph :38 Condition: good :38 Discharge instructions given to patient, Instructed on discharge instructions, follow up and referral plans. Demonstrated understanding of instructions, follow-up care, :38 Patient left the ED. ph Signatures: Chiqui Huerta RN RN Jocy Patel RN RN ph Orion Shine RN RN [facility] Collin Fernández MD MD rt Jacklyn Carvalho 3
[2025-02-13] MEDS ORDERED: MUPIROCIN 2% OINT 22GM TUBE TOP ONE (09:25)
[2025-02-13 09:44] VITALS: TEMP 97.7; O2SAT 98
[2025-02-13 09:46] VITALS: BP 189/120
== END 2025-02-13 09:38 | disposition home or self-care (01) ==
LOC: ER 09:06
DX: S91.301A Unspecified open wound, right foot, initial encounter (principal); F17.210 Nicotine dependence, cigarettes, uncomplicated
CPT/HCPCS: 99284